=== PATIENT | male | born 1950 | race Caucasian/White ===

== ENCOUNTER 2020-09-26 12:46 | Outpatient (REF) | payer MEDICARE, OTHER, SELFPAY ==
[2020-09-26 14:06] LABS: COMMENT (LAB VIEW ONLY) 55.01 mg/dL; Microalb ug/mg Crea 14.5 ug/mg Cr
== END 2020-09-26 13:06 ==
LOC: NCHCN 12:46
PROVIDERS: PCP Family Medicine; Visit Provider Family Medicine
DX: E11.9 Type 2 diabetes mellitus without complications (principal); I10 Essential (primary) hypertension; E78.00 Pure hypercholesterolemia, unspecified
CPT/HCPCS: 82043; 82570

== ENCOUNTER 2020-12-05 16:29 | Outpatient (REF) | payer MEDICARE, OTHER, SELFPAY ==
[2020-12-07 13:58] LABS: COVID-19 RT-PCR UVMMC Result Positive (Negative)
== END 2020-12-05 16:30 | disposition home or self-care (01) ==
LOC: NCHCN 16:29
PROVIDERS: PCP Family Medicine; Visit Provider Family Medicine
DX: Z20.822 Contact with and (suspected) exposure to COVID-19 (principal)
CPT/HCPCS: U0003

== ENCOUNTER 2020-12-08 02:30 | Outpatient (CLI) | payer MEDICARE, OTHER, SELFPAY ==
[2020-12-08 12:50] VITALS: BP 175/85; PULSE 74; RESP 18; TEMP 37.2; O2SAT 94
[2020-12-08 12:55] VITALS: BP 175/85; PULSE 74; RESP 18; TEMP 37.2; O2SAT 94
[2020-12-08] MEDS: Normal Saline Flush 10 ML SYR IVP (13:36)
[2020-12-08] MEDS: Normal Saline 500 ML 30 ML IV (13:37)
[2020-12-08 13:43] VITALS: BP 156/70; PULSE 72; RESP 18; TEMP 37.1; O2SAT 95
[2020-12-08 14:13] VITALS: BP 145/93; PULSE 71; RESP 18; TEMP 37.3; O2SAT 94
[2020-12-08 14:47] VITALS: BP 156/84; PULSE 74; RESP 20; TEMP 37.6; O2SAT 94
[2020-12-08 15:10] VITALS: BP 157/80; PULSE 79; RESP 18; TEMP 37.1; O2SAT 93
== END 2020-12-08 02:31 | disposition home or self-care (01) ==
LOC: INF 02:31
PROVIDERS: PCP Family Medicine; Visit Provider Family Medicine
DX: U07.1 COVID-19 (principal)
CPT/HCPCS: 96365

== ENCOUNTER 2021-03-27 12:24 | Outpatient (REF) | payer MEDICARE, OTHER, SELFPAY ==
[2021-03-27 15:07] LABS: ALT 39 U/L (16-63); AST 18 U/L (15-37); Albumin 4.2 g/dL (3.4-5.0); Alkaline Phosphatase 58 U/L (46-116); Anion Gap 9.7 mmol/L (3-11); BUN 21 mg/dL (7-18); Bilirubin, Total 0.8 mg/dL (0.2-1.0); CO2 28.3 mmol/L (21.0-32.0); CREATININE 1.1 mg/dL (0.70-1.30); Calcium 9.4 mg/dL (8.5-10.1); Chloride 107 mmol/L (98-107); Glucose 178 mg/dL (74-106); Sodium 145 mmol/L (136-145); Total Protein 6.9 g/dL (6.4-8.2)
[2021-03-27 15:14] LABS: HCT 47.8 % (40.0-50.0); HGB 15.9 g/dL (13.5-17.5); MCHC 33.3 % (32.0-36.0); MCV 96.2 fL (80-95); MPV 12.4 fL (8.0-11.0); Platelet Count 176 10^3/uL (130-400); RBC 4.97 10^6/uL (4.36-5.78); RDW 11.9 % (11.8-14.1); RDW-SD 42.5 fL; WBC 5.48 10^3/uL (4.4-10.8)
== END 2021-03-27 12:25 | disposition home or self-care (01) ==
LOC: NCHCN 12:24
PROVIDERS: PCP Family Medicine; Visit Provider Family Medicine
DX: I10 Essential (primary) hypertension (principal); E11.9 Type 2 diabetes mellitus without complications
CPT/HCPCS: 80053; 85027

== ENCOUNTER 2021-03-27 23:17 | Emergency (ER) | payer MEDICARE, OTHER, SELFPAY ==
[2021-03-27 23:20] VITALS: BP 142/85; PULSE 97; RESP 16; TEMP 36.7; O2SAT 95
--- NOTE | 2021-03-27 23:23 | W.ED.GENAD ---
Discharge Plan Disposition Patient Disposition: HOME Condition: Good Discharge Details Clinical Impression: Acute bursitis of left shoulder Primary Care Provider: Navin Souza ED Provider: Cecil Doyle [place] Meds and New Rx's Prescriptions: New prednisone 10 mg tablets,dose pack See Rx Instructions .ROUTE .COMPLEX Qty: 21 RF: 0 oxycodone 5 mg tablet 5 mg PO Q8H PRNQty: 10 RF: 0 Continued losartan 50 mg Tablet 50 mg PO DAILY RF: 0 rabeprazole 20 mg Tablet,Delayed Release (Dr/Ec) 20 mg PO DAILY RF: 0 atorvastatin 20 mg Tablet 20 mg PO QHS RF: 0 metoprolol succinate 50 mg Tablet Extended Release 24 Hr 50 mg PO DAILY RF: 0 glimepiride 4 mg Tablet 4 mg PO BID RF: 0 aspirin 81 mg Tablet,Chewable 81 mg PO DAILY RF: 0 diclofenac sodium 75 mg Tablet,Delayed Release (Dr/Ec) 75 mg PO BID RF: 0 hydrochlorothiazide 12.5 mg Tablet 12.5 mg PO DAILY RF: 0 canagliflozin 100 mg Tablet 100 mg PO DAILY RF: 0 exenatide microspheres 2 mg/0.65 mL Pen Injector 2 mg SUBCUT QWEEK RF: 0 Discharge Instructions Additional Instructions: After discussion with orthopedics this is likely acute bursitis related to the injection. Recommendation is steroids for period of time and follow-up with orthopedics if no significant improvement. Wear the sling for comfort but has pain that improves try to do range of motion exercises. You may use Tylenol for pain with a prescription for oxycodone has been sent for the first few days due to the severity of your pain. Return to ED for fever, chills, worsening pain or swelling, numbness, weakness. Referrals: Dayne Chester MD [ [facility] STAFF PHYSICIAN] - Medical Decision Making Patient with immobile left shoulder after IM injection for immunization. This was the side that got the pneumococcus vaccine. The injection site is high and not in the posterior deltoid area expected. Discussed with ortho who reports this is in their literature and occurs especially with influenza vaccines. Because the site is high, patients develop acute bursitis. Recommendation is oral steroids, rest, pain control. Patient dosed with prednisone here and home on dose pack. Also given oxycodone due to pain given that [place] had not helped earlier. Informed consent signed. Patient to follow up with ortho next week if not improving. Return to ED for redness, worse pain, fever. HPI General Mode of arrival: ambulatory. Date/Time Provider Initiated Documentation: 03/27/21 23:23. Limitations to Documentation: no limitations. Information obtained by: patient and RN notes reviewed. HPI Narrative: Patient presents to ED with left shoulder pain. Patient saw PCP today and was given immunizations for a trip to [place] later this year. He was given hepatitis A and pneumococcus. His right arm is not bothering him. His left arm has become progressively worse to the point where he is unable to range his shoulder at all. He took 2 [place] around 7 PM. Did not help at all with the pain. He presents with sling on. He denies feeling unwell otherwise. Reports no fever, chills, malaise, fatigue. He has no numbness or weakness distally in the left arm. Related Data Home Medications Medication Instructions Recorded Confirmed aspirin 81 mg PO DAILY 03/28/21 03/28/21 atorvastatin 20 mg PO QHS 03/28/21 03/28/21 canagliflozin 100 mg PO DAILY 03/28/21 03/28/21 diclofenac sodium 75 mg PO BID 03/28/21 03/28/21 exenatide microspheres 2 mg SUBCUT QWEEK 03/28/21 03/28/21 glimepiride 4 mg PO BID 03/28/21 03/28/21 hydrochlorothiazide 12.5 mg PO DAILY 03/28/21 03/28/21 losartan 50 mg PO DAILY 03/28/21 03/28/21 metoprolol succinate 50 mg PO DAILY 03/28/21 03/28/21 oxycodone 5 mg PO Q8H PRN #10 tab 03/28/21 prednisone See Rx Instructions .ROUTE 03/28/21 .COMPLEX #21 dose pk rabeprazole 20 mg PO DAILY 03/28/21 03/28/21 Previous Rx's Medication Instructions Recorded oxycodone 5 mg PO Q8H PRN #10 tab 03/28/21 prednisone See Rx Instructions .ROUTE 03/28/21 .COMPLEX #21 dose pk Allergies Allergy/AdvReac Type Severity Reaction Status Date / Time adhesive tape Allergy Verified 03/27/21 23:34 cortisone Allergy Verified 03/27/21 23:34 Review of Systems Narrative: As documented in HPI otherwise negative as below. Const: no fever, chills, weakness Resp: no cough, SOB, pleuritic pain CV: no CP, diaphoresis, edema, syncope GI: no abdominal pain, nausea, vomiting, diarrhea Neuro: no headache, numbness, focal weakness, confusion [facility] Medical History Diabetes mellitus GERD (gastroesophageal reflux disease) Hypercholesterolemia Hypertension Surgical History S/P TKR (total knee replacement) bilateral Social History Smoking/Tobacco Use Status: Former Tobacco Use Smoking risk assessment performed?: Yes Alcohol Intake: current Alcohol Intake frequency: 0-2 drinks per day Alcohol type: beer Drug use: Never Substance use type: does not use Do you feel safe at home: Yes Do you feel safe in your relationship?: Yes Exam Narrative Exam Narrative: Const: WDWN elderly male in NAD. HEENT: NC/AT. Normal facial exam. Eyes: Normal conjunctiva and sclera. Neck: Supple. Trachea midline. Lungs: Normal respiratory effort. Cor: RRR. Good radial pulses. Neuro: A+O x 3. Normal speech, mentation, gait. Cranial nerves II - XII grossly intact. No gross motor or sensory deficit. Ext: No C/C/E. Left shoulder immobile due to pain. No warmth or redness. Injection site high up just posterior to the distal end of the acromion. RUE is normal and injection site posterior deltoid area Skin: Warm and dry without rash/erythema.
[2021-03-28] MEDS: predniSONE 20 MG TAB 60 MG PO (00:06)
== END 2021-03-28 00:30 | disposition home or self-care (01) ==
LOC: ER 03-28 00:24
PROVIDERS: Emergency Provider Emergency Medicine; PCP Family Medicine
DX: M75.52 Bursitis of left shoulder (principal); T50.B95A Adverse effect of other viral vaccines, initial encounter
CPT/HCPCS: 99283; J7512

== ENCOUNTER → 2021-04-05 10:31 | Outpatient (BNVA) | payer MEDICARE, OTHER, SELFPAY | PROVIDERS: PCP Family Medicine; Referring Provider Family Medicine; Visit Provider Student in an Organized Health Care Education/Training Program | DX: M75.52 Bursitis of left shoulder (principal) | CPT/HCPCS: 99203; 99214 ==

== ENCOUNTER 2021-07-19 14:58 | Outpatient (REF) | payer MEDICARE, OTHER, SELFPAY ==
[2021-07-19 16:04] LABS: Anion Gap 7.2 mmol/L (3-11); BUN 21 mg/dL (7-18); CO2 30.8 mmol/L (21.0-32.0); CREATININE 0.9 mg/dL (0.70-1.30); Calcium 8.9 mg/dL (8.5-10.1); Chloride 102 mmol/L (98-107); Glucose 219 mg/dL (74-106); Potassium 4.7 mmol/L (3.5-5.1); Sodium 140 mmol/L (136-145)
[2021-07-20 09:44] LABS: Hepatitis C Ab w Rflx HCV PCR Negative (Negative)
[2021-07-20 10:18] LABS: HIV-1/2 Ag & Ab Screen Negative (Negative)
== END 2021-07-19 14:59 | disposition home or self-care (01) ==
LOC: NCHCN 14:58
PROVIDERS: PCP Family Medicine; Visit Provider Family Medicine
DX: E11.9 Type 2 diabetes mellitus without complications (principal); I10 Essential (primary) hypertension; Z00.00 Encounter for general adult medical examination without abnormal findings; Z11.4 Encounter for screening for human immunodeficiency virus [HIV]; Z11.59 Encounter for screening for other viral diseases
CPT/HCPCS: 80048; 86803; 87389

== ENCOUNTER 2021-07-25 01:11 | Outpatient (CLI) | payer MEDICARE, OTHER, SELFPAY ==
--- NOTE | 2021-07-25 10:58 | DI.RAD_ITS ---
Exam(s) XR LUMBAR SPINE COMPLETE EXAM: XR LUMBAR SPINE COMPLETE CLINICAL HISTORY: LOW BACK PAIN, M54.5. TECHNIQUE: 2D digital imaging was performed of the lumbar spine. Five images were obtained. AP, la teral, right oblique, left oblique and L5-S1 spot views were obtained. COMPARISON: No exams were available for comparison FINDINGS: BONES: No fracture or destructive lesion. Vertebral bodies are unremarkable. Degenerative changes of the facets are seen at L4-5 and L5-S1. Endplate osteophytes are seen at multiple levels of the lumbar spine. DISKS: There is disc space narrowing at L2-L3, L4-L5 and L5-S1. There is a vacuum disc at L5-S1. ALIGNMENT: 2-3 mm retrolisthesis of L2 on L3 and 2-3 mm of anterolisthesis of L4 on L5 is noted. SOFT TISSUE: Atherosclerosis. 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 DATA REPOSITORY: RADIATION DOSE DELIVERED:
== END 2021-07-25 01:31 ==
PROVIDERS: PCP Family Medicine; Visit Provider Family Medicine
DX: M54.50 Low back pain, unspecified (principal); M47.817 Spondylosis without myelopathy or radiculopathy, lumbosacral region; M51.37 Other intervertebral disc degeneration, lumbosacral region
CPT/HCPCS: 72110

== ENCOUNTER 2021-09-06 07:14 | Emergency (ER) | payer MEDICARE, OTHER, SELFPAY ==
[2021-09-06 07:24] VITALS: BP 118/84; PULSE 76; O2SAT 96
--- NOTE | 2021-09-06 08:00 | DI.RAD_ITS ---
Exam(s) XR HIP PELVIS ADULT BL EXAM: XR HIP PELVIS ADULT BL CLINICAL HISTORY: pain. TECHNIQUE: 2D digital imaging was performed of the pelvis and bilateral hips. Three images were obt ained. AP pelvis and lateral views of both hips were obtained. COMPARISON: No exams were available for comparison FINDINGS: BONES: No acute fracture is present. No bony destructive lesion is seen. Moderate degenerative change s are seen in the lower lumbar spine. JOINTS: No dislocation present. The hips are well maintained. There may be mild joint space narrowin g. SOFT TISSUE: Surgical clips are seen inferior to the pelvis likely reflecting prior vasectomy. IMPRESSION: 1. No acute fracture or dislocation. 2. Mild joint space narrowing of the hips bilaterally. DATA REPOSITORY: RADIATION DOSE DELIVERED:
--- NOTE | 2021-09-06 08:52 | ED.GENADUL_ITS ---
Discharge Plan Disposition Patient Disposition: HOME Condition: Stable Discharge Details Clinical Impression: Acute hip pain, bilateral Primary Care Provider: Navin Souza ED Provider: Venus Huff Home Meds and New Rx's Prescriptions: New methylprednisolone [Medrol (Kashif)] 4 mg tablets,dose pack See Rx Instructions .ROUTE .COMPLEX Qty: 21 RF: 0 Continued losartan 50 mg Tablet 50 mg PO DAILY RF: 0 rabeprazole 20 mg Tablet,Delayed Release (Dr/Ec) 20 mg PO DAILY RF: 0 atorvastatin 20 mg Tablet 20 mg PO QHS RF: 0 metoprolol succinate 50 mg Tablet Extended Release 24 Hr 50 mg PO DAILY RF: 0 glimepiride 4 mg Tablet 4 mg PO BID RF: 0 aspirin 81 mg Tablet,Chewable 81 mg PO DAILY RF: 0 diclofenac sodium 75 mg Tablet,Delayed Release (Dr/Ec) 75 mg PO BID RF: 0 hydrochlorothiazide 12.5 mg Tablet 12.5 mg PO DAILY RF: 0 canagliflozin 100 mg Tablet 100 mg PO DAILY RF: 0 exenatide microspheres 2 mg/0.65 mL Pen Injector 2 mg SUBCUT QWEEK RF: 0 Discharge Instructions Additional Instructions: Please follow-up with your primary care physician at your scheduled appointment Follow-up with orthopedics, I will list the follow-up number below Take the Medrol until completed, it looks as though you have been on the medication before at this time I think it safe to initiate it, obviously if you develop a rash please discontinue and return as needed I have also given you a small bottle of oxycodone, take this medication sparingly as it is addictive Referrals: ORTHOPAEDICS,[facility] [OTHER] - Navin Souza MD [Primary Care Provider] - Medical Decision Making Patient appears well, there is no evidence of septic arthritis or bursitis, his x-rays do not show acute abnormality he does have some degenerative change to bilateral hips Have referred patient to physical therapy, orthopedics, and primary care physician Have placed him on Medrol dose pack Will take Tylenol as needed for pain Given a very small amount of oxycodone with risk of addiction discussed Discharged home in stable condition with stable vitals Given low threshold to return should he have new or worsening complaints Does report appointment with his primary care physician on September 25 Office work note, patient has complaints Made aware that he is unable to operate any machinery. Hours after taking ox ycodone, this medication is addictive and can cause constipation, patient Patient does have prior history of allergy to cortisone, and his last visit he was prescribed prednisone and did well with this medication patient Medical Records Medical records reviewed: Yes I reviewed the patient's medical records. Lab Data Lab results reviewed: Yes I reviewed the patient's lab results. HPI General Mode of arrival: ambulatory . Date/Time Provider Initiated Documentation: 09/06/21 07:33 . Limitations to Documentation: no limitations . Information obtained by: patient . HPI Narrative: This 71-year-old gentleman with history of ADD, hematuria, melanoma presents with report of bilateral hip pain for the past several months, worsening the past several days. He said taking Tylenol as needed for pain. He states this is not helping. Last night he woke up throughout the night secondary to discomfort. He denies any numbness or tingling. He denies any fever or chills. He denies any new low back pain. He denies any falls or known injuries. Related Data Home Medications Medication Instructions Recorded Confirmed aspirin 81 mg PO DAILY 03/28/21 09/06/21 atorvastatin 20 mg PO QHS 03/28/21 09/06/21 canagliflozin 100 mg PO DAILY 03/28/21 09/06/21 diclofenac sodium 75 mg PO BID 03/28/21 09/06/21 exenatide microspheres 2 mg SUBCUT QWEEK 03/28/21 09/06/21 glimepiride 4 mg PO BID 03/28/21 09/06/21 hydrochlorothiazide 12.5 mg PO DAILY 03/28/21 09/06/21 losartan 50 mg PO DAILY 03/28/21 09/06/21 metoprolol succinate 50 mg PO DAILY 03/28/21 09/06/21 rabeprazole 20 mg PO DAILY 03/28/21 09/06/21 methylprednisolone [Medrol (Kashif)] See Rx Instructions .ROUTE 09/06/21 .COMPLEX #21 dose pk Previous Rx's Medication Instructions Recorded methylprednisolone [Medrol (Kashif)] See Rx Instructions .ROUTE 09/06/21 .COMPLEX #21 dose pk Allergies Allergy/AdvReac Type Severity Reaction Status Date / Time adhesive tape Allergy Verified 09/06/21 07:31 cortisone Allergy Verified 09/06/21 07:31 General Stated Complaint: Orthopedic ANDREA: 4 Review of Systems All systems reviewed & are unremarkable except as noted in HPI and below PFSH All Active Problems (Updated 09/06/21 @ 09:04 by PIOTR Harrell) Acute hip pain, bilateral (Acute) ADD (attention deficit disorder) (Acute) Hematuria (Acute) Insomnia (Acute) Neoplasm of unspecified behavior of bone, soft tissue, and skin (Acute) Actinic keratosis (Acute) Acute bursitis of left shoulder (Acute) Medical History (Updated 09/06/21 @ 09:04 by PIOTR Harrell) Diabetes mellitus GERD (gastroesophageal reflux disease) Hypercholesterolemia Hypertension Surgical History S/P TKR (total knee replacement) bilateral Social History Smoking/Tobacco Use Status: Former Tobacco Use Smoking risk assessment performed?: Yes Alcohol Intake: current Alcohol Intake frequency: a few times a week Alcohol type: beer Drug use: Never Substance use type: does not use Current gender identity: male Do you feel safe at home: Yes Do you feel safe in your relationship?: Yes Exam Const General: cooperative, comfortable and no acute distress Eyes Sclera: sclerae normal Resp Effort & Inspection: normal respiratory effort Cardio Other: Rate and rhythm regular, neurovascularly intact GI Other: No abdominal bruit or pulsatile mass, no flank tenderness, no abdominal tenderness Skin General skin exam: no rashes or lesions noted Neuro General: patient alert and patient oriented x3 Motor: strength 5/5 throughout Sensory Exam: no sensory deficits noted Other: Ambulatory with steady although antalgic gait Extrem Other: Tenderness to hips bilaterally, decreased abduction and internal rotation on exam, negative straight leg raise bilaterally, neurovascularly intact Course Vital Signs Vital signs: Vital Signs Pulse 76 09/06/21 07:24 Blood Pressure 118/84 09/06/21 07:24 Pulse Oximetry 96 09/06/21 07:24 Pulse 76 09/06/21 07:24 Respiratory Effort Non-Labored 09/06/21 07:26 Blood Pressure 118/84 09/06/21 07:24 Blood Pressure Position Sitting 09/06/21 07:24 Pulse Oximetry 96 09/06/21 07:24 Oxygen Delivery Method Room Air 09/06/21 07:24 Oxygen Flow Rate 0 09/06/21 07:24 Pain Level 5 09/06/21 07:24 PAWSS Have you Been Recently Intoxicated or Drunk Within the Last 30 days?: No Have you Ever Experienced Previous Episodes of Alcohol Withdrawal?: No Have you ever Experienced Withdrawal Seizures?: No Have you ever Experienced Delirium Tremens(DT)s?: No Have you ever undergone Alcohol Rehabilitation Treatment (i.e, inpt ot outpatient treatment programs)?: No Have you ever Experienced Blackouts?: No Have you ever Combined Alcohol with other Downers within the last 90 days?: No Have you ever Combined Alcohol with any other Substance of Abuse during the last 90 days?: No Positive Blood Alcohol level on Presentation? [PCS.BAL]: No Evidence of Increased Autonomic Activity (i.e. HR>120, tremor, sweating, agitation, nausea)?: No Result: 0
[2021-09-06 09:41] VITALS: BP 135/76; PULSE 69; RESP 18; TEMP 36.9; O2SAT 98
== END 2021-09-06 09:37 | disposition home or self-care (01) ==
PROVIDERS: Emergency Provider Physician Assistant; PCP Family Medicine
DX: M25.551 Pain in right hip (principal); M25.552 Pain in left hip
CPT/HCPCS: 73521; 99283

== ENCOUNTER 2021-11-05 10:51 | Emergency (ER) | payer MEDICARE, OTHER, SELFPAY ==
[2021-11-05 10:57] VITALS: BP 158/80; PULSE 82; RESP 16; TEMP 36.2; O2SAT 98
[2021-11-05 11:23] VITALS: RESP 16
--- NOTE | 2021-11-05 12:20 | ED.GENADUL_ITS ---
Discharge Plan Disposition Patient Disposition: HOME Condition: Improving Discharge Details Clinical Impression: Panic attack Primary Care Provider: Navin Souza ED Provider: Luis Abraham Home Meds and New Rx's Prescriptions: Continued alprazolam 0.5 mg tablet 0.5 mg PO PRN0RF Label Comments: TAKE 1 TABLET BY MOUTH EVERY NIGHT AT BEDTIME NEEDED oxycodone 5 mg tablet 10 mg PO DAILY 0RF Label Comments: TAKE 1 TABLET BY MOUTH TWICE DAILY NEEDED FOR PAIN gabapentin 800 mg Tablet 900 mg PO TID 0RF losartan 50 mg Tablet 50 mg PO DAILY 0RF rabeprazole 20 mg Tablet,Delayed Release (Dr/Ec) 20 mg PO DAILY 0RF atorvastatin 20 mg Tablet 20 mg PO QHS 0RF metoprolol succinate 50 mg Tablet Extended Release 24 Hr 50 mg PO DAILY 0RF glimepiride 4 mg Tablet 4 mg PO BID 0RF aspirin 81 mg Tablet,Chewable 81 mg PO DAILY 0RF diclofenac sodium 75 mg Tablet,Delayed Release (Dr/Ec) 75 mg PO BID 0RF hydrochlorothiazide 12.5 mg Tablet 12.5 mg PO DAILY 0RF canagliflozin 100 mg Tablet 100 mg PO DAILY 0RF Discharge Instructions Instructions: Panic Attack (ED) Additional Instructions: You have been provided with a medical screening evaluation. A medical work-up was offered but declined. We also offered to contact our mental health team to evaluate you here in the ER but you preferred not to be in the ER that long. Instead we provided you with the mental health number so you could contact them personally from your cell phone and they could talk to you on your cell phone from a location of your choosing. Please follow their instructions. Please watch for new or worsening symptoms and return to the ER for any concerns. Lastly, please contact your primary care provider tomorrow morning to discuss your ER visit need for outpatient reevaluation Discharge Data Discharge Date/Time-TO BE ENTERED AT DEPARTURE: 11/05/21 13:46 Medical Decision Making This is a 71-year-old gentleman presenting for anxiety and claustrophobia. He recently had a back procedure which went well and his overall chronic back pain is greatly improved. He had been on steroids that tapered out a few days ago. Initially question if this could be secondary to his recent steroid use, bhavna roid-induced psychosis, etc. but the more we talked about his symptoms are less I feel this is likely. He initially was not agreeable to coming in the building and allow an evaluation but after speaking to him in the vestibule for approximately 10 minutes he was persuaded to go into room 10. He does not feel as though he has a medical problem and would like to talk to someone about his anxiety and claustrophobia. He was offered a medical screening examination and then a medical work-up including IV access, laboratory values, EKG, etc. Patient declines this. Patient is hesitant for psychiatric evaluation here in the ER as this may take too long. We discussed her options. I explained to him that I could contact our mental health team and initiate a mental health evaluation but that they would evaluate him via Zoom in the ER. He did not think she wanted to wait in the ER that long. Instead we opted to give him the crisis number so that he could call them himself from his cell phone and then he could have his conversation with the crisis team at his convenience in a comfortable location from his cell phone. He denies any suicidal or homicidal ideations and feels as though he is safe to be discharged. His son dropped him off and will be back in approximately 1 hour. He is agreeable to be observed in room 10 where he has access to windows and can look outside. During this time. He was reassessed multiple times. He contacted the crisis number and is awaiting a call back. He reports that his symptoms have greatly improved and he no longer feels like the the bowers are closing in. He no longer looks anxious. Strict discharge and return precautions were provided. Patient has no additional questions or concerns and is comfortable with this plan. He remained hemodynamically stable under my care. This documentation was generated using [employer] system, please disregard any oddities of phrase or misspellings. Medical Records Medical records reviewed: Yes I reviewed the patient's medical records. HPI General Mode of arrival: ambulatory . Date/Time Provider Initiated Documentation: 11/05/21 11:12 . Limitations to Documentation: no limitations . Information obtained by: patient . HPI Narrative: This is a 71-year-old gentleman, past medical history of ADD, insomnia, diabete s, hypertension, presenting to the ER reporting anxiety, and claustrophobia. Patient states that he had a similar episode nearly 20 years ago. Earlier this week he states he had a bad dream and woke up like everything was closing in but the sensation went away and he has been doing well. He states about 2 weeks ago he had back surgery at [facility] and although the procedure went well and his pain is greatly improving, he has primarily been at home, has not left, and was feeling cooped up. This morning he awoke and felt as though the bowers were closing in on him but he simply could not stay at home. He initially did not want to enter the hospital building and it took me approximately 10 minutes talking to him in the vestibule to persuade him to be evaluated in room 10 where we could open the blinds and he had access to visualize outside. He denies any recent illness or trauma. Denies headache, visual changes, fever, neck pain, chest pain, shortness of breath, difficulty breathing, abdominal pain, nausea, vomiting, numbness, tingling, focal weakness. Patient states that after the surgery he was on a steroid taper dose but this ended 3 days ago. He denies any suicidal or homicidal ideations and reports feeling safe. He denies any drug use. Related Data Home Medications Medication Instructions Recorded Confirmed aspirin 81 mg chewable tablet 81 mg PO DAILY 03/28/21 11/05/21 atorvastatin 20 mg tablet 20 mg PO QHS 03/28/21 11/05/21 canagliflozin 100 mg tablet 100 mg PO DAILY 03/28/21 11/05/21 diclofenac sodium 75 mg 75 mg PO BID 03/28/21 11/05/21 tablet,delayed release glimepiride 4 mg tablet 4 mg PO BID 03/28/21 11/05/21 hydrochlorothiazide 12.5 mg tablet 12.5 mg PO DAILY 03/28/21 11/05/21 losartan 50 mg tablet 50 mg PO DAILY 03/28/21 11/05/21 metoprolol succinate 50 mg 50 mg PO DAILY 03/28/21 11/05/21 tablet,extended release 24 hr rabeprazole 20 mg tablet,delayed 20 mg PO DAILY 03/28/21 11/05/21 release alprazolam 0.5 mg tablet 0.5 mg PO PRN 11/05/21 gabapentin 800 mg tablet 900 mg PO TID 11/05/21 11/05/21 oxycodone 5 mg tablet 10 mg PO DAILY 11/05/21 11/05/21 Allergies Allergy/AdvReac Type Severity Reaction Status Date / Time adhesive tape Allergy Verified 11/05/21 11:02 cortisone Allergy Verified 11/05/21 11:02 General Stated Complaint: Anxiety ANDREA: 3 Review of Systems Constitutional Constitutional: Denies fatigue, Denies fever(s), Denies headache(s) and Denies weakness Eyes Eyes: Denies change in vision ENT Ears, Nose, Mouth, and Throat: Denies headache(s) and Denies neck pain Cardiovascular Cardiovascular: Denies chest pain and Denies dyspnea Respiratory Respiratory: Denies cough and Denies dyspnea Gastrointestinal Gastrointestinal: Denies abdominal pain, Denies nausea and Denies vomiting Musculoskeletal Musculoskeletal: Reports back pain (Chronic, improving) and Denies neck pain Integumentary/Breasts Skin/Breast: Denies rash Neurologic Neurologic: Denies headache(s) and Denies weakness Psychiatric Psychiatric: Reports anxiety Endocrine Endocrine: Denies fatigue PFSH All Active Problems Panic attack (Acute) ADD (attention deficit disorder) (Acute) Hematuria (Acute) Insomnia (Acute) Neoplasm of unspecified behavior of bone, soft tissue, and skin (Acute) Actinic keratosis (Acute) Acute bursitis of left shoulder (Acute) Medical History Diabetes mellitus GERD (gastroesophageal reflux disease) Hypercholesterolemia Hypertension Surgical History S/P TKR (total knee replacement) bilateral Social History Smoking/Tobacco Use Status: Former Tobacco Use Smoking risk assessment performed?: Yes Alcohol Intake: current Alcohol Intake frequency: 0-2 drinks per day Alcohol type: beer Drug use: Never Substance use type: does not use Current gender identity: male Do you feel safe at home: Yes Do you feel safe in your relationship?: Yes Exam Const General: cooperative, healthy appearing, comfortable, no acute distress and anxious Orientation: alert, awake and oriented x3 HENMT Head: normal to inspection, normocephalic and atraumatic Face and sinus: normal facial exam Mouth: moist mucous membranes Eyes General: appearance normal, both eyes and all related structures Conjunctivae: conjunctivae normal Neck Neck: normal visual inspection, full ROM, trachea midline and supple Resp Effort & Inspection: normal respiratory effort and able to speak in complete sentences Auscultation: clear to auscultation bilaterally Cardio Rate: regular rate Rhythm: regular rhythm Back/Spine/Pelvis Back: No back tenderness (No signs of infection) Skin General skin exam: no rashes or lesions noted Neuro General: patient alert, patient awake, patient oriented x3, moves all extremities and no focal motor deficits Cognition: normal cognition Speech: speech normal Gait: normal gait Motor: muscle tone normal throughout Sensory Exam: no sensory deficits noted Extrem General: normal to inspection and full ROM Psych Appearance: grossly normal Mental Status: mental status grossly normal Speech and Movement: speech and movement normal Mood: anxious mood Affect: anxious affect Attitude: cooperative Thought Process: normal Thought Content: normal Insight: insight good Judgment: judgment good Course Vital Signs Vital signs: Vital Signs Temperature 36.2 C L 11/05/21 10:57 Pulse 82 11/05/21 10:57 Respiratory Rate 16 11/05/21 10:57 Blood Pressure 158/80 H 11/05/21 10:57 Pulse Oximetry 98 11/05/21 10:57 Temperature 36.2 C L 11/05/21 10:57 Temperature Source Skin 11/05/21 10:57 Pulse 82 11/05/21 10:57 Respiratory Rate 16 11/05/21 11:23 Respiratory Effort Non-Labored 11/05/21 11:23 Respiratory Depth Normal 11/05/21 11:23 Respiratory Pattern Normal 11/05/21 11:23 Blood Pressure 158/80 H 11/05/21 10:57 Blood Pressure Position Sitting 11/05/21 10:57 Pulse Oximetry 98 11/05/21 10:57 Oxygen Delivery Method Room Air 11/05/21 10:57 Oxygen Flow Rate 0 11/05/21 10:57 Pain Level 4 11/05/21 10:57 PAWSS Have you Been Recently Intoxicated or Drunk Within the Last 30 days?: Yes Have you Ever Experienced Previous Episodes of Alcohol Withdrawal?: No Have you ever Experienced Withdrawal Seizures?: No Have you ever Experienced Delirium Tremens(DT)s?: No Have you ever undergone Alcohol Rehabilitation Treatment (i.e, inpt ot outpatient treatment programs)?: No Have you ever Experienced Blackouts?: No Have you ever Combined Alcohol with other Downers within the last 90 days?: No Have you ever Combined Alcohol with any other Substance of Abuse during the last 90 days?: No Positive Blood Alcohol level on Presentation? [PCS.BAL]: No Evidence of Increased Autonomic Activity (i.e. HR>120, tremor, sweating, agitation, nausea)?: No Result: 1
[2021-11-05 12:24] VITALS: BP 126/78; PULSE 85; RESP 17; TEMP 35.8; O2SAT 98
[2021-11-05 12:43] VITALS: BP 126/78; PULSE 85; RESP 17; TEMP 35.8; O2SAT 98
== END 2021-11-05 13:46 | disposition home or self-care (01) ==
PROVIDERS: Emergency Provider Physician Assistant; PCP Family Medicine
DX: F41.0 Panic disorder [episodic paroxysmal anxiety] (principal)
CPT/HCPCS: 99283

== ENCOUNTER 2021-11-15 19:05 | Emergency (ER) | payer MEDICARE, OTHER, SELFPAY ==
[2021-11-15 19:22] VITALS: BP 148/89; PULSE 89; RESP 16; TEMP 36.3; O2SAT 96
--- NOTE | 2021-11-15 20:15 | RT.EKG_ITS ---
APPROVED REPORT Exam: Resting ECG Reason for Exam: anxiety Patient Location: E HR:81 bpm ECG Measurements Heart Rate 81 AXIS VA 162 P 46 QRSd 119 QRS 2 QT 412 T 98 QTc 480 Conclusion Sinus rhythm...normal P axis, V-rate 60- 99 Nonspecific intraventricular conduction delay...QRSd >115mS, not LBBB/RBBB Consider anteroseptal infarct...Q >30mS, dimin R, V1-V2 sinus rhyth,, left axis, t wave inversion aVL, st depression V4 V5
[2021-11-15] MEDS: LORazepam 1 MG TAB PO (20:47)
[2021-11-15 20:56] LABS: Bilirubin Negative (Negative); Blood Negative (Negative); Clarity Clear (Clear); Glucose >=1000 mg/dL (Negative); Ketones 40 mg/dL (Negative); Leukocyte Esterase Negative (Negative); Nitrite Negative (Negative); Specific Gravity >= 1.030 (1.005-1.025); Urobilinogen 0.2 EU/dL (Up TO 0.2); pH 5.5 (5-8)
[2021-11-15 21:06] LABS: Abs Immature Grans 0.02 10^3/uL (0.0-0.06); Absolute Basophil Count 0.03 10^3/uL (0.0-0.2); Absolute Eosinophil Count 0.12 10^3/uL (0.0-0.7); Absolute Monocyte Count 0.62 10^3/uL (0.1-0.8); Absolute Neutrophil Count 4.21 10^3/uL (1.2-6.7); Basophils % 0.4; Eosinophils % 1.8; HCT 46.5 % (40.0-50.0); Immature Grans % 0.3; Lymphocytes % 25.4; MCH 32.1 pg (27.0-33.0); MCHC 34.4 % (32.0-36.0); MCV 93.4 fL (80-95); MPV 11.7 fL (8.0-11.0); Monocytes % 9.3; Neutrophils % 62.8; Nucleated RBC 0 %; Platelet Count 185 10^3/uL (130-400); RBC 4.98 10^6/uL (4.36-5.78); RDW 12.3 % (11.8-14.1); RDW-SD 42.4 fL
[2021-11-15 21:20] LABS: ALT 17 U/L (16-63); AST 13 U/L (15-37); Albumin 4.1 g/dL (3.4-5.0); Alkaline Phosphatase 81 U/L (46-116); BUN 15 mg/dL (7-18); Bilirubin, Total 0.7 mg/dL (0.2-1.0); CO2 26.5 mmol/L (21.0-32.0); CREATININE 0.9 mg/dL (0.70-1.30); Calcium 9.5 mg/dL (8.5-10.1); Chloride 101 mmol/L (98-107); Glucose 220 mg/dL (74-106); Magnesium 2.2 mg/dL (1.8-2.4); Potassium 4.1 mmol/L (3.5-5.1); TSH (W/Ref FT4) 1.05 uIU/mL (0.36-3.74); Total Protein 7.2 g/dL (6.4-8.2); Troponin I 54 ng/L (<or=60)
[2021-11-15 21:24] LABS: Anion Gap 10.5 mmol/L (3-11); Sodium 138 mmol/L (136-145)
--- NOTE | 2021-11-16 15:58 | PDOC.MHCN ---
Date of service: 11/15/21 Time of Service: 21:30 Mental Health Crisis Note Presenting Issue How did you arrive at the ED and why did you come: Client arrived to the ED via self for anxiety due to his daily medication. Precipitating Factors Client denies SI/HI/NSSI. Disposition BEHAVIOR: Client is calm, cooperative, and engaged in conversation. EYE CONTACT: N/a MOOD: Client reported being anxious prior to the assessment. The nurse gave him ativan so he was finally able to relax, and appeared to be calm while being assessed. AFFECT: Congruent with mood. APPETITE: Not assessed at this time. SLEEP(trouble falling/staying asleep: Not assessed at this time. Plan Clients concerns are medicine related. This journalists and other writers was able to suggest a plan moving forward to try and fix the medication issue. Client will be making a follow up PCP appointment to discuss medication, as well as request a psychiatry referral for a second opinion since he reports having panic attacks.Clinician will be following up with client. Signature Clinician's Name/Title: Whit Llanos, ESC
--- NOTE | 2021-12-11 09:41 | ED.GENADUL_ITS ---
Discharge Plan Disposition Patient Disposition: HOME Condition: Stable Discharge Details Clinical Impression: Restless Primary Care Provider: Navin Souza ED Provider: Venus Huff Home Meds and New Rx's Prescriptions: New lorazepam [Ativan] 1 mg tablet 1 mg PO BID PRNQty: 6 0RF Continued alprazolam 0.5 mg tablet 0.5 mg PO PRN PRN0RF Label Comments: TAKE 1 TABLET BY MOUTH EVERY NIGHT AT BEDTIME NEEDED oxycodone 5 mg tablet 10 mg PO DAILY 0RF Label Comments: TAKE 1 TABLET BY MOUTH TWICE DAILY NEEDED FOR PAIN gabapentin 800 mg Tablet 900 mg PO TID 0RF losartan 50 mg Tablet 50 mg PO DAILY 0RF rabeprazole 20 mg Tablet,Delayed Release (Dr/Ec) 20 mg PO DAILY 0RF atorvastatin 20 mg Tablet 20 mg PO QHS 0RF metoprolol succinate 50 mg Tablet Extended Release 24 Hr 50 mg PO DAILY 0RF glimepiride 4 mg Tablet 4 mg PO BID 0RF aspirin 81 mg Tablet,Chewable 81 mg PO DAILY 0RF diclofenac sodium 75 mg Tablet,Delayed Release (Dr/Ec) 75 mg PO BID 0RF hydrochlorothiazide 12.5 mg Tablet 12.5 mg PO DAILY 0RF canagliflozin 100 mg Tablet 100 mg PO DAILY 0RF Discharge Instructions Additional Instructions: Please follow-up with your primary care physician Do not continue taking the oxycodone or Neurontin You may take Ativan sparingly, this medication is addictive and should be used with caution Do not drive for 8 hours after taking this medication Referrals: Navin Souza MD [Primary Care Provider] - Discharge Data Discharge Date/Time-TO BE ENTERED AT DEPARTURE: 11/15/21 22:40 Medical Decision Making Patient feels very much symptomatically improved after Ativan administration Mental health consultation was performed and labs are reviewed, labs consistent with diabetes diagnosis in the past Patient taking his medication He is now calm and cooperative He feels very comfortable following up outpatient He denies any suicidal homicidal ideation He is given the return should he have new or worsening complaints and discharged home in stable condition with stable vitals symptomatically improved with a small amount of Ativan at home should he need it He will refrain from taking oxycodone in the future Medical Records Medical records reviewed: Yes I reviewed the patient's medical records. Lab Data Lab results reviewed: Yes I reviewed the patient's lab results. HPI General Date/Time Provider Initiated Documentation: 11/15/21 19:57 . HPI Narrative: This 71-year-old gentleman presents with anxiety and jitteriness. Patient states initially he attributed it to oxycodone however he had persistent symptoms despite discontinuing this medication. He denies any auditory or visual hallucinations. He states that he feels extremely anxious and claustrophobic any summer felt like this before. He denies any fever or chills. He denies any chest pain or shortness of breath. He denies any dizziness or weakness. He denies any suicidal or homicidal ideation. He states that the m edication that he was distributed with last encounter improved symptoms. He has not yet followed up with mental health. He took his last dose of oxycodone approximately 3 days ago but feels like this exacerbated his symptoms. Related Data Home Medications Medication Instructions Recorded Confirmed aspirin 81 mg chewable tablet 81 mg PO DAILY 03/28/21 11/15/21 atorvastatin 20 mg tablet 20 mg PO QHS 03/28/21 11/15/21 canagliflozin 100 mg tablet 100 mg PO DAILY 03/28/21 11/15/21 diclofenac sodium 75 mg 75 mg PO BID 03/28/21 11/15/21 tablet,delayed release glimepiride 4 mg tablet 4 mg PO BID 03/28/21 11/15/21 hydrochlorothiazide 12.5 mg tablet 12.5 mg PO DAILY 03/28/21 11/15/21 losartan 50 mg tablet 50 mg PO DAILY 03/28/21 11/15/21 metoprolol succinate 50 mg 50 mg PO DAILY 03/28/21 11/15/21 tablet,extended release 24 hr rabeprazole 20 mg tablet,delayed 20 mg PO DAILY 03/28/21 11/15/21 release alprazolam 0.5 mg tablet 0.5 mg PO PRN PRN 11/05/21 gabapentin 800 mg tablet 900 mg PO TID 11/05/21 11/15/21 oxycodone 5 mg tablet 10 mg PO DAILY 11/05/21 11/15/21 lorazepam 1 mg tablet (Ativan) 1 mg PO BID PRN #6 tab 11/15/21 Previous Rx's Medication Instructions Recorded lorazepam 1 mg tablet (Ativan) 1 mg PO BID PRN #6 tab 11/15/21 Allergies Allergy/AdvReac Type Severity Reaction Status Date / Time adhesive tape Allergy Verified 11/15/21 19:26 cortisone Allergy Verified 11/15/21 19:26 General Stated Complaint: Anxiety ANDREA: 3 Review of Systems All systems reviewed & are unremarkable except as noted in HPI and below PFSH All Active Problems (Updated 12/06/21 @ 00:05 by LORRAINE BRANHAM) Restless (Acute) ADD (attention deficit disorder) (Acute) Hematuria (Acute) Insomnia (Acute) Neoplasm of unspecified behavior of bone, soft tissue, and skin (Acute) Actinic keratosis (Acute) Acute bursitis of left shoulder (Acute) Medical History Diabetes mellitus GERD (gastroesophageal reflux disease) Hypercholesterolemia Hypertension Surgical History S/P TKR (total knee replacement) bilateral Social History Smoking/Tobacco Use Status: Former Tobacco Use Smoking risk assessment performed?: Yes Alcohol Intake: current Alcohol Intake frequency: 0-2 drinks per day Alcohol type: beer Drug use: Never Substance use type: does not use Current gender identity: male Do you feel safe at home: Yes Do you feel safe in your relationship?: Yes Exam Const General: cooperative, comfortable and no acute distress Orientation: alert and oriented x3 HENMT Head: normal to inspection Eyes Pupils: PERRL Chest Chest: normal inspection of the chest Resp Effort & Inspection: normal respiratory effort Auscultation: clear to auscultation bilaterally Cardio Rate: regular rate Rhythm: regular rhythm Skin General skin exam: no rashes or lesions noted Neuro General: patient alert and patient oriented x3 Cranial Nerves: CN's II-XI intact bilaterally Cognition: normal cognition Speech: speech normal Gait: normal gait Motor: muscle tone normal throughout Extrem General: normal to inspection Psych Appearance: well kempt Speech and Movement: agitated Mood: paranoid Affect: anxious affect Attitude: cooperative Thought Process: normal Thought Content: normal Course Vital Signs Vital signs: Vital Signs Temperature 36.3 C L 11/15/21 19:22 Pulse 89 11/15/21 19:22 Respiratory Rate 16 11/15/21 19:22 Blood Pressure 148/89 H 11/15/21 19:22 Pulse Oximetry 96 11/15/21 19:22 Temperature 36.3 C L 11/15/21 19:22 Temperature Source Skin 11/15/21 19:22 Pulse 89 11/15/21 19:22 Respiratory Rate 16 11/15/21 19:22 Respiratory Effort Non-Labored 11/15/21 19:34 Respiratory Depth Normal 11/15/21 19:34 Respiratory Pattern Normal 11/15/21 19:34 Blood Pressure 148/89 H 11/15/21 19:22 Pulse Oximetry 96 11/15/21 19:22 Pain Level 7 11/15/21 19:22 Lab/Test Results Lab/Test Results: Laboratory Tests Range/Units 11/15/21 11/15/21 11/15/21 20:44 20:44 20:50 WBC (4.4-10.8) 10^3/uL 6.70 RBC (4.36-5.78) 10^6/uL 4.98 Hgb (13.5-17.5) g/dL 16.0 Hct (40.0-50.0) % 46.5 MCV (80-95) fL 93.4 MCH (27.0-33.0) pg 32.1 MCHC (32.0-36.0) % 34.4 RDW (11.8-14.1) % 12.3 Plt Count (130-400) 10^3/uL 185 MPV (8.0-11.0) fL 11.7 H Immature Gran % 0.3 Neutrophils % 62.8 Lymphocytes % 25.4 Monocytes % 9.3 Eosinophils % 1.8 Basophils % 0.4 Nucleated RBC % % 0 Absolute Neutrophils (1.2-6.7) 10^3/uL 4.21 Absolute Lymphocytes (1.2-3.4) 10^3/uL 1.70 Absolute Monocytes (0.1-0.8) 10^3/uL 0.62 Absolute Eosinophils (0.0-0.7) 10^3/uL 0.12 Absolute Basophils (0.0-0.2) 10^3/uL 0.03 Sodium (136-145) mmol/L 138 Potassium (3.5-5.1) mmol/L 4.1 Chloride (98-107) mmol/L 101 Carbon Dioxide (21.0-32.0) mmol/L 26.5 Anion Gap (3-11) mmol/L 10.5 BUN (7-18) mg/dL 15 Creatinine (0.70-1.30) mg/dL 0.9 Estimated GFR/1.73 m2 (mL/min/1.73m2) >= 60.00 Glucose (74-106) mg/dL 220 H Calcium (8.5-10.1) mg/dL 9.5 Magnesium (1.8-2.4) mg/dL 2.2 Total Bilirubin (0.2-1.0) mg/dL 0.7 AST (15-37) U/L 13 L ALT (16-63) U/L 17 Alkaline Phosphatase (46-116) U/L 81 Troponin I (<or=60) ng/L 54 Total Protein (6.4-8.2) g/dL 7.2 Albumin (3.4-5.0) g/dL 4.1 TSH (0.36-3.74) uIU/mL 1.05 Urine Color (Yellow) Yellow Urine Clarity (Clear) Clear Urine pH (5-8) 5.5 Ur Specific [place] (1.005-1.025) >= 1.030 H Urine Protein (Negative) mg/dL Negative Urine Ketones (Negative) mg/dL 40 H Urine Blood (Negative) Negative Urine Nitrite (Negative) Negative Urine Bilirubin (Negative) Negative Urine Urobilinogen (Up TO 0.2) EU/dL 0.2 Ur Leukocyte Esterase (Negative) Negative Urine Glucose (Negative) mg/dL >=1000 H PAWSS Have you Been Recently Intoxicated or Drunk Within the Last 30 days?: Unable to Obtain Have you Ever Experienced Previous Episodes of Alcohol Withdrawal?: Unable to Obtain Have you ever Experienced Withdrawal Seizures?: Unable to Obtain Have you ever Experienced Delirium Tremens(DT)s?: Unable to Obtain Have you ever undergone Alcohol Rehabilitation Treatment (i.e, inpt ot outpatient treatment programs)?: Unable to Obtain Have you ever Experienced Blackouts?: Unable to Obtain Have you ever Combined Alcohol with other Downers within the last 90 days?: Unable to Obtain Have you ever Combined Alcohol with any other Substance of Abuse during the last 90 days?: Unable to Obtain Positive Blood Alcohol level on Presentation? [PCS.BAL]: Unable to Obtain Evidence of Increased Autonomic Activity (i.e. HR>120, tremor, sweating, agitat ion, nausea)?: Unable to Obtain
== END 2021-11-15 22:40 | disposition home or self-care (01) ==
PROVIDERS: Emergency Provider Physician Assistant; PCP Family Medicine
DX: R45.1 Restlessness and agitation (principal); F41.9 Anxiety disorder, unspecified
CPT/HCPCS: 36415; 80053; 93005; 99283; 81003; 83735; 84443; 84484; 85025; 93010

== ENCOUNTER 2022-02-19 04:19 | Inpatient (IN) | payer MEDICARE, OTHER, SELFPAY ==
[2022-02-19] VITALS (154 sets, daily range): BP systolic 120–156; BP diastolic 74–106; PULSE 69–98; RESP 14–28; TEMP 36.5–36.9; O2SAT 92–96
--- NOTE | 2022-02-19 04:30 | RT.EKG_ITS ---
APPROVED REPORT Exam: Resting ECG Reason for Exam: anxiety Patient Location: E HR:91 bpm ECG Measurements Heart Rate 91 AXIS NV 220 P 108 QRSd 122 QRS -38 QT 387 T 120 QTc 476 Conclusion Sinus rhythm...normal P axis, V-rate 60- 99 Prolonged NV interval...NV >215, V-rate 91-120 LVH with secondary repolarization abnormality...multi-LVH criteria, abnrm ST-T Physician: Rate 91, sinus rhythm, interventricular conduction delay event marketing representative of a left bundle branch block . Negative for SCARBOSSA criteria. No STEMI. Interval change from prior EKG on 11/15/2021
[2022-02-19] MEDS: LORazepam 1 MG TAB PO (04:36)
[2022-02-19] MEDS: Aspirin 81 MG CHEW 324 MG CH (05:07)
--- NOTE | 2022-02-19 05:07 | ED.GENADUL_ITS ---
Discharge Plan Disposition Patient Disposition: [facility] INPATIENT Condition: Stable Discharge Details Chief Complaint: Anxiety Clinical Impression: Non-ST elevation [place] (NSTEMI) Primary Care Provider: Navin Souza ED Provider: Channing Alfaro Home Meds and New Rx's Prescriptions: No Action alprazolam 0.5 mg tablet 0.5 mg PO PRN PRN Label Comments: TAKE 1 TABLET BY MOUTH EVERY NIGHT AT BEDTIME NEEDED gabapentin 800 mg Tablet 900 mg PO TID cyclobenzaprine 10 mg tablet 10 tab PO TID Label Comments: TAKE ONE TABLET BY MOUTH EVERY 8 HOURS NEEDED celecoxib 100 mg capsule 1,000 cap PO DAILY Bydureon BCise 2 mg/0.85 mL auto-injector 1 ea SUBCUT QWEEK losartan 50 mg Tablet 50 mg PO DAILY rabeprazole 20 mg Tablet,Delayed Release (Dr/Ec) 20 mg PO DAILY atorvastatin 20 mg Tablet 20 mg PO QHS metoprolol succinate 50 mg Tablet Extended Release 24 Hr 50 mg PO DAILY glimepiride 4 mg Tablet 4 mg PO BID aspirin 81 mg Tablet,Chewable 81 mg PO DAILY hydrochlorothiazide 12.5 mg Tablet 12.5 mg PO DAILY canagliflozin 100 mg Tablet 100 mg PO DAILY Medical Decision Making This is a 71-year-old male with a past medical history of anxiety, hypertension, diabetes mellitus, high cholesterol, who presents today via EMS for a panic attack. Patient states that this morning he woke up and felt like the room was closing in around him. He states that he has been having these panic attacks over the last few months, and this 1 appears identical to those previous episodes. He states that he was started on Lexapro and this completely resolved his panic attacks, however for the last week he believes that he forgot to put his Lexapro in his pill container and he has been feeling gradual returns of this panic sensation. This began climax tonight. He denies any chest pain, chest tightness, tearing or ripping sensation in his chest, chest heaviness, arm neck or shoulder pain, or other complaints. He denies any history of cardiac disease. He denies any vomiting or diarrhea. He denies any other complaints at this time. No other modifying factors. Exam demonstrates a well-appearing male, slightly anxious but otherwise unremarkable and stable. No chest pain whatsoever. No concerning red flags of heaviness or tightness. Symptoms appear consistent with mild panic. We will give a small dose of Ativan. Out of an abundance of precaution we will get a screening EKG as well. Will monitor closely and reassess. 5:11 AM EKG shows evidence of a nonspecific interventricular conduction delay versus a left bundle branch block. Comparison of prior EKG on 11/15/2021 demonstrates master dence of a change compared to then. While there are certainly components of a conduction delay previously, this appears to be more pronounced. EKG findings are inconsistent with STEMI, additionally it is inconsistent with a positive SCARBOSSA's criteria. I do feel that this current change does not represent an ischemic episode based on history and exam, however with the EKG findings I do feel that further work-up is indicated. We we will get screening troponins, and continue to monitor closely. We will give full dose aspirin. Of note patient feels completely relieved at this time and much better and feels comfortable going home after the Ativan administration. 6:42 AM Bedside echo was performed, and limited echo demonstrates no pericardial effusion. The left ventricle appears dilated, ejection fraction reduced at around 35%, notable hypokinesis at the base/apex, and bowers. Symptoms almost appear concerning for Takotsubo's cardiomyopathy. We did contact [facility] and discussed the case with Dr. Coulter of cardiology. Upon review of the EKG and clinical history he recommends transfer for further evaluation, heparinization and Plavix loading. Bed will be available tomorrow morning for transfer center. We will maintain him here in the meantime, and treat with medical therapy. Patient remains completely chest pain-free. We will contact the hospitalist for admission. Dr. For [facility] admission is Dr. Arias 7:30 AM Discussed the case with hospitalist Dr. Gerardo, he agrees with assessment and plan. I have extensively reviewed the treatment plan with the patient. I have addressed all patient concerns at this time. I have also discussed the plan with the admitting physician and they agree with the current assessment and plan and have agreed to assume responsibility for the patient. All parties demonstrate verbal understanding and agreement with our assessment and plan at this time. The documentation in this chart was dictated using [employer] 2000 dictation software. Please excuse any dictation errors. EKG 4: 36 Rate 91, sinus rhythm, interventricular conduction delay admissions representative of a left bundle branch block. Negative for SCARBOSSA criteria. No STEMI. Interval change from prior EKG on 11/15/2021 HPI General Date/Time Provider Initiated Documentation: 02/19/22 04:23 . HPI Narrative: This is a 71-year-old male with a past medical history of anxiety, hypertension, diabetes mellitus, high cholesterol, who presents today via EMS for a panic attack. Patient states that this morning he woke up and felt like the room was closing in around him. He states that he has been having these panic attacks over the last few months, and this 1 appears identical to those previous episodes. He states that he was started on Lexapro and this completely resolved his panic attacks, however for the last week he believes that he forgot to put his Lexapro in his pill container and he has been feeling gradual returns of this panic sensation. This began climax tonight. He denies any chest pain, chest tightness, tearing or ripping sensation in his chest, chest heaviness, arm neck or shoulder pain, or other complaints. He denies any history of cardiac disease. He denies any vomiting or diarrhea. He denies any other complaints at this time. No other modifying factors. Related Data Home Medications Medication Instructions Recorded Confirmed aspirin 81 mg chewable tablet 81 mg PO DAILY 03/28/21 02/19/22 atorvastatin 20 mg tablet 20 mg PO QHS 03/28/21 02/19/22 canagliflozin 100 mg tablet 100 mg PO DAILY 03/28/21 02/19/22 glimepiride 4 mg tablet 4 mg PO BID 03/28/21 02/19/22 hydrochlorothiazide 12.5 mg tablet 12.5 mg PO DAILY 03/28/21 02/19/22 losartan 50 mg tablet 50 mg PO DAILY 03/28/21 02/19/22 metoprolol succinate 50 mg 50 mg PO DAILY 03/28/21 02/19/22 tablet,extended release 24 hr rabeprazole 20 mg tablet,delayed 20 mg PO DAILY 03/28/21 02/19/22 release alprazolam 0.5 mg tablet 0.5 mg PO PRN PRN 11/05/21 02/19/22 gabapentin 800 mg tablet 900 mg PO TID 11/05/21 02/19/22 celecoxib 100 mg capsule 1,000 cap PO DAILY 02/19/22 02/19/22 cyclobenzaprine 10 mg tablet 10 tab PO TID 02/19/22 02/19/22 exenatide microspheres 2 mg/0.85 1 ea subcut QWEEK 02/19/22 02/19/22 mL subcutaneous auto-injector ([employer] BCise) Allergies Allergy/AdvReac Type Severity Reaction Status Date / Time adhesive tape Allergy Verified 02/19/22 04:22 cortisone Allergy Verified 02/19/22 04:22 General Stated Complaint: Anxiety ANDREA: 3 Review of Systems All systems reviewed & are unremarkable except as noted in HPI and below PFSH All Active Problems (Updated 02/19/22 @ 07:34 by Channing Alfaro DO) Non-ST elevation [place] (NSTEMI) (Acute) ADD (attention deficit disorder) (Acute) Hematuria (Acute) Insomnia (Acute) Neoplasm of unspecified behavior of bone, soft tissue, and skin (Acute) Actinic keratosis (Acute) Acute bursitis of left shoulder (Acute) Medical History Diabetes mellitus GERD (gastroesophageal reflux disease) Hypercholesterolemia Hypertension Surgical History S/P TKR (total knee replacement) bilateral Social History Smoking/Tobacco Use Status: Former Tobacco Use Smoking risk assessment performed?: Yes Alcohol Intake: current Alcohol Intake frequency: 0-2 drinks per day Alcohol type: beer Drug use: Never Substance use type: does not use Current gender identity: male Do you feel safe at home: Yes Do you feel safe in your relationship?: Yes Exam Narrative Exam Narrative: 1.Const: Well-nourished, Well-developed, appearing stated age 2.Eyes: PERRL, no conjunctival injection, and symmetrical lids. 3.ENT: Atraumatic external nose and ears. Moist MM. Neck: Symmetric, trachea midline, No thyromegaly. 4.CVS: +S1/S2, No murmurs or gallops. Peripheral pulses 2+ and equal in all extremities. Brisk capillary refill in all extremities. 5.RESP: Unlabored respiratory effort. Clear to auscultation bilaterally. No wheezes rales or rhonchi 6.GI: Soft, Nontender/Nondistended, No hepatosplenomegaly. No guarding or rebound. 7.MSK: Normocephalic/Atraumatic, Extremities w/o deformity or ttp No cyanosis or clubbing, Normal movement of all extremities 8.Skin: Warm, Dry. No rashes or lesions. 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 Sensation grossly intact, no focal neurologic deficits. 10.Psych: (AAO) x3. Minimally anxious appearing. Course Vital Signs Vital signs: Vital Signs Temperature 36.5 C 02/19/22 04:19 Pulse 98 H 02/19/22 04:19 Respiratory Rate 22 02/19/22 04:19 Blood Pressure 156/106 H 02/19/22 04:19 Temperature 36.5 C 02/19/22 04:19 Pulse 98 H 02/19/22 04:19 Respiratory Rate 22 02/19/22 04:27 Respiratory Effort Non-Labored 02/19/22 04:27 Respiratory Depth Normal 02/19/22 04:27 Respiratory Pattern Normal 02/19/22 04:27 Blood Pressure 146/99 H 02/19/22 04:30 Pain Level 99 02/19/22 04:19 Critical Care Time Critical Care Time Critical Care Time: Yes Total Critical Care Time: 30 Attestation: Upon my evaluation, this patient had a high probability of imminent or life- threatening deterioration, which required my direct attention, intervention, and personal management. I have personally provided 30 minutes of critical care time exclusive of time spent on separately billable procedures. Time includes review of laboratory data, radiology results, discussion with consultants, and monitoring for potential decompensation. Interventions were performed as documented. PAWSS Have you Been Recently Intoxicated or Drunk Within the Last 30 days?: No Have you Ever Experienced Previous Episodes of Alcohol Withdrawal?: No Have you ever Experienced Withdrawal Seizures?: No Have you ever Experienced Delirium Tremens(DT)s?: No Have you ever undergone Alcohol Rehabilitation Treatment (i.e, inpt ot outpatient treatment programs)?: No Have you ever Experienced Blackouts?: No Have you ever Combined Alcohol with other Downers within the last 90 days?: No Have you ever Combined Alcohol with any other Substance of Abuse during the last 90 days?: No Positive Blood Alcohol level on Presentation? [PCS.BAL]: No Evidence of Increased Autonomic Activity (i.e. HR>120, tremor, sweating, agitation, nausea)?: No Result: 0
[2022-02-19 05:12] LABS: Abs Immature Grans 0.01 10^3/uL (0.0-0.06); Absolute Basophil Count 0.02 10^3/uL (0.0-0.2); Absolute Eosinophil Count 0.08 10^3/uL (0.0-0.7); Absolute Monocyte Count 0.48 10^3/uL (0.1-0.8); Absolute Neutrophil Count 7.74 10^3/uL (1.2-6.7); Basophils % 0.2; Eosinophils % 0.9; HCT 47.3 % (40.0-50.0); Immature Grans % 0.1; Lymphocytes % 8.8; MCH 31.7 pg (27.0-33.0); MCHC 33.8 % (32.0-36.0); MCV 94 fL (80-95); MPV 12.1 fL (8.0-11.0); Monocytes % 5.3; Neutrophils % 84.7; Platelet Count 163 10^3/uL (130-400); RBC 5.05 10^6/uL (4.36-5.78); RDW 12.7 % (11.8-14.1); RDW-SD 43.6 fL; WBC 9.13 10^3/uL (4.4-10.8)
[2022-02-19 05:28] LABS: ALT 34 U/L (16-63); AST 23 U/L (15-37); Albumin 3.6 g/dL (3.4-5.0); Alkaline Phosphatase 68 U/L (46-116); Anion Gap 5.2 mmol/L (3-11); BUN 17 mg/dL (7-18); Bilirubin, Total 0.4 mg/dL (0.2-1.0); CO2 26.8 mmol/L (21.0-32.0); Calcium 8.7 mg/dL (8.5-10.1); Chloride 100 mmol/L (98-107); Glucose 274 mg/dL (74-106); Potassium 4.1 mmol/L (3.5-5.1); Sodium 132 mmol/L (136-145); Total Protein 6.7 g/dL (6.4-8.2)
[2022-02-19 05:30] LABS: Troponin I 179 ng/L (<or=60)
--- NOTE | 2022-02-19 06:15 | RT.EKG_ITS ---
APPROVED REPORT Exam: Resting ECG Reason for Exam: chest pain Patient Location: E HR:82 bpm ECG Measurements Heart Rate 82 AXIS OK 185 P 53 QRSd 115 QRS -29 QT 375 T 113 QTc 438 Conclusion Sinus rhythm...normal P axis, V-rate 60- 99 Nonspecific intraventricular conduction delay...QRSd >115mS, not LBBB/RBBB Probable anteroseptal infarct, recent...Q, ST>0.15mV, T neg, V1-V2
[2022-02-19] MEDS: Clopidogrel 300 MG TAB 600 MG PO (07:05)
[2022-02-19 07:43] LABS: Source Nasal/Nares
[2022-02-19 08:14] LABS: PTT Activated 67.5 sec (21.0-27.5); Prothrombin Time 10.5 sec (9.3-11.0)
[2022-02-19 08:24] LABS: Troponin I 334 ng/L (<or=60)
[2022-02-19 08:28] LABS: Calculated LDL 82 mg/dL (<100); Cholesterol 149 mg/dL (<200); HDL Cholesterol 60 mg/dL (40-60); Triglyceride 36 mg/dL (<150)
[2022-02-19 08:44] LABS: COVID-19 PCR Negative (Negative)
[2022-02-19 08:46] LABS: NT-proBNP 4592 pg/mL (<300)
[2022-02-19] MEDS: Losartan 50 MG TAB PO (09:10)
[2022-02-19] MEDS: Famotidine 20 MG TAB PO ×2 (09:10→21:16)
[2022-02-19] MEDS: Metoprolol CR 50 MG TABCR PO (09:10)
[2022-02-19] MEDS: Gabapentin 300 MG CAP 900 MG PO (09:13)
[2022-02-19 09:19] LABS: Lab Add On Test DONE
--- NOTE | 2022-02-19 09:24 | HPE_ITS ---
Date of service: 02/19/22 Time of Service: 08:24 Assessment and Plan Assessment and plan (1) Non-ST elevation [place] (NSTEMI): Status: Acute Assessment and plan: Dr. Alfaro feels the patient has Takotsubo's cardiomyopathy where some are concerned that the patient actually had an NSTEMI although with a left bundle branch block/IVCD, however patient did not meet Sgarbossa criteria. Nevertheless his troponin are rising. He is currently asymptomatic. We will admit him to ICU for close monitoring, echo; treatment w/ BB, ASA, Plavix, and heparin and statin. If he has further pain/pressure, I willl get repeat EKG and call [facility] to try to move up his transfer. He has been accepted to cardiology service of Dr. Garth Thompson at [facility]. Based on his exam (JVD, bibasilar rales) and his symptoms (acute dyspnea at rest) and his elevated BNP of 4600. I will give him one time dose of lasix 20 mg. Critical care time spent interviewing and examining the patient, reviewing studies, discussing case with patient's nurse and consulting physicians was 60 minutes (2) Diabetes mellitus: Status: Chronic Assessment and plan: will cover w/ low dose/insulin sensitive sliding scale; monitor glucose AC/HS and get Hba1c (3) GERD (gastroesophageal reflux disease): Assessment and plan: hold PPI while on Plavix; treat w/ H2 ciara (4) Hypercholesterolemia: Assessment and plan: incr. atorvastatin to 80 mg; check lipid levels (5) Hypertension: Assessment and plan: cotninue Toprol XL and losartan. History of Present Illness History of Present Illness Chief Complaint: chest tightness, dyspnea Narrativ e: 71-year-old male with a history of type 2 diabetes mellitus not on insulin, essential hypertension, hyperlipidemia, presents to the emergency department this morning with acute onset of chest tightness and dyspnea beginning around 3 AM. This woke him up from sleep. Chest pressure lasted for about 20 minutes was across the anterior chest no radiation to the neck jaw arms or back. This is followed by continued feeling of shortness of breath and feeling like the room was closing in on him. The dyspnea continued when he arrived emergency department but the chest pain had resolved. At the time of my interview with the patient at 8:38 AM he is feeling fine has no symptoms of dyspnea or chest discomfort. He says he has had similar attacks in the past not associated with any physical activity is just be a feeling of anxiety with a feeling like the room is closing in on him. In the emergency department Dr. Alfaro treated with lorazepam 1 mg which alleviated his feelings of dyspnea. Dr. Alfaro did an EKG and found that the patient has a new LBBB which led to checking troponin levels which was elevated at 179. Dr. Alfaro did a bedside POCUS echo which demons trated apical to mid LV severe hypokinesis. Dr. Alfaro called [facility] cardiology and spoke w/ Dr. Castro and the patient was accepted for transfer pending bed availability to service of Dr. Garth Thompson. Per Dr. Alfaro, the EKG did not meet Sgarbossa criteria. He feels that the patient is suffering from Takotsubo. The patient has hx of anxiety disorder and has been on Lexapro but did not take it for past week as he forgot to put it in his pill container. Dr. Alfaro has started the patient on heparin drip, gave him ASA and Plavix. Patient will be admitted to ICU for medical management of NSTEMI pending transfer to [facility]. Review of Systems All systems reviewed & are unremarkable except as noted in HPI and below PFSH All Active Problems Diabetes mellitus (Chronic) Non-ST elevation [place] (NSTEMI) (Acute) ADD (attention deficit disorder) (Acute) Hematuria (Acute) Insomnia (Acute) Neoplasm of unspecified behavior of bone, soft tissue, and skin (Acute) Actinic keratosis (Acute) Acute bursitis of left shoulder (Acute) Medical History GERD (gastroesophageal reflux disease) Hypercholesterolemia Hypertension Surgical History H/O esophagogastroduodenoscopy S/P lumbar spine operation (~10/2021) [facility] Dr. Antonio; L2-L3 S/P TKR (total knee replacement) (~10/2020) s/p bilateral TKA; Left 09/04, Right 11/06 S/P tonsillectomy Social History Smoking/Tobacco Use Status: Former Tobacco Use Smoking risk assessment performed?: Yes Alcohol Intake: current Alcohol Intake frequency: 0-2 drinks per day Alcohol type: beer Drug use: Never Substance use type: does not use Current gender identity: male Do you feel safe at home: Yes Do you feel safe in your relationship?: Yes Meds Allergies and Home Medications Allergies Allergy/AdvReac Type Severity Reaction Status Date / Time adhesive tape Allergy Verified 02/19/22 04:22 cortisone Allergy Verified 02/19/22 04:22 Home Medications Medication Instructions Recorded Confirmed Type aspirin 81 mg chewable tablet 81 mg PO DAILY 03/28/21 02/19/22 History atorvastatin 20 mg tablet 20 mg PO QHS 03/28/21 02/19/22 History canagliflozin 100 mg tablet 100 mg PO DAILY 03/28/21 02/19/22 History glimepiride 4 mg tablet 4 mg PO BID 03/28/21 02/19/22 History hydrochlorothiazide 12.5 mg tablet 12.5 mg PO DAILY 03/28/21 02/19/22 History losartan 50 mg tablet 50 mg PO DAILY 03/28/21 02/19/22 History metoprolol succinate 50 mg 50 mg PO DAILY 03/28/21 02/19/22 History tablet,extended release 24 hr rabeprazole 20 mg tablet,delayed 20 mg PO DAILY 03/28/21 02/19/22 History release alprazolam 0.5 mg tablet 0.5 mg PO PRN PRN 11/05/21 02/19/22 History gabapentin 800 mg tablet 900 mg PO TID 11/05/21 02/19/22 History celecoxib 100 mg capsule 1,000 cap PO DAILY 02/19/22 02/19/22 History cyclobenzaprine 10 mg tablet 10 tab PO TID 02/19/22 02/19/22 History exenatide microspheres 2 mg/0.85 1 ea subcut QWEEK 02/19/22 02/19/22 History mL subcutaneous auto-injector (Bymiryam Ricahrdson) Exam Narrative Exam Narrative: Patient was seen in emergency department he is in no acute distress he sitting up on the ER gurrowe. He is alert late middle-aged white male who is awake. HEENT is remarkable for glasses, white haired, bearded/mustache; PERRLA/EOMI, fundi without papilledema or retinopathy. Oropharynx noninjected no exudate teeth are in fair repair Neck is supple nontender normal carotid pulses he has overt JVD to the angle of his mandible. Lungs are clear anteriorly posteriorly has bibasilar rales no rhonchi or wheezes Heart is regular normal S1, S2 is single component. No appreciable murmur rub Abdomen is soft nontender normal bowel sounds no tenderness no organomegaly. Extremities without peripheral cyanosis or edema. Pedal pulses are intact although diminished. Sensory exam grossly intact by touch Neuro exam no focal cranial nerve deficits no focal motor deficits. Results Imaging EKG: image reviewed Labs Result diagrams: 02/19/22 05:05 02/19/22 05:05 Labs: Laboratory Results - last 24 hr 02/19/22 02/19/22 02/19/22 04:58 04:58 05:05 WBC RBC Hgb Hct MCV MCH MCHC RDW Plt Count MPV Immature Gran % Neutrophils % Lymphocytes % Monocytes % Eosinophils % Basophils % Nucleated RBC % Absolute Neutrophils Absolute Lymphocytes Absolute Monocytes Absolute Eosinophils Absolute Basophils PT INR APTT Sodium 132 L Potassium 4.1 Chloride 100 Carbon Dioxide 26.8 Anion Gap 5.2 BUN 17 Creatinine 1.0 Estimated GFR/1.73 m2 >= 60.00 Glucose 274 H Calcium 8.7 Total Bilirubin 0.4 AST 23 ALT 34 Alkaline Phosphatase 68 Troponin I 179 H* NT-Pro-B Natriuret Pep 4592 H Total Protein 6.7 Albumin 3.6 Triglycerides 36 Total Cholesterol 149 LDL Cholesterol, Calc 82 HDL Cholesterol 60 COVID-19 Source SARS-CoV-2 (PCR) Add-On Test Request DONE 02/19/22 02/19/22 02/19/22 05:05 07:15 07:37 WBC 9.13 RBC 5.05 Hgb 16.0 Hct 47.3 MCV 94 MCH 31.7 MCHC 33.8 RDW 12.7 Plt Count 163 MPV 12.1 H Immature Gran % 0.1 Neutrophils % 84.7 Lymphocytes % 8.8 Monocytes % 5.3 Eosinophils % 0.9 Basophils % 0.2 Nucleated RBC % 0.0 Absolute Neutrophils 7.74 H Absolute Lymphocytes 0.80 L Absolute Monocytes 0.48 Absolute Eosinophils 0.08 Absolute Basophils 0.02 PT Cancelled INR Cancelled APTT Cancelled Sodium Potassium Chloride Carbon Dioxide Anion Gap BUN Creatinine Estimated GFR/1.73 m2 Glucose Calcium Total Bilirubin AST ALT Alkaline Phosphatase Troponin I NT-Pro-B Natriuret Pep Total Protein Albumin Triglycerides Total Cholesterol LDL Cholesterol, Calc HDL Cholesterol COVID-19 Source Nasal/Nares SARS-CoV-2 (PCR) Negative Add-On Test Request 02/19/22 02/19/22 02/19/22 07:55 07:55 13:30 WBC RBC Hgb Hct MCV MCH MCHC RDW Plt Count MPV Immature Gran % Neutrophils % Lymphocytes % Monocytes % Eosinophils % Basophils % Nucleated RBC % Absolute Neutrophils Absolute Lymphocytes Absolute Monocytes Absolute Eosinophils Absolute Basophils PT 10.5 INR 1.0 APTT 67.5 H Cancelled Sodium Potassium Chloride Carbon Dioxide Anion Gap BUN Creatinine Estimated GFR/1.73 m2 Glucose Calcium Total Bilirubin AST ALT Alkaline Phosphatase Troponin I 334 H* NT-Pro-B Natriuret Pep Total Protein Albumin Triglycerides Total Cholesterol LDL Cholesterol, Calc HDL Cholesterol COVID-19 Source SARS-CoV-2 (PCR) Add-On Test Request Last Vital Signs Temp 36.5 C 02/19/22 04:19 Pulse 77 02/19/22 08:31 Resp 19 02/19/22 08:42 BP 133/86 02/19/22 08:31 Pulse Ox 95 02/19/22 08:42 PAWSS Have you Been Recently Intoxicated or Drunk Within the Last 30 days?: No Have you Ever Experienced Previous Episodes of Alcohol Withdrawal?: No Have you ever Experienced Withdrawal Seizures?: No Have you ever Experienced Delirium Tremens(DT)s?: No Have you ever undergone Alcohol Rehabilitation Treatment (i.e, inpt ot outpatient treatment programs)?: No Have you ever Experienced Blackouts?: No Have you ever Combined Alcohol with other Downers within the last 90 days?: No Have you ever Combined Alcohol with any other Substance of Abuse during the last 90 days?: No Positive Blood Alcohol level on Presentation? [PCS.BAL]: No Evidence of Increased Autonomic Activity (i.e. HR>120, tremor, sweating, agitation, nausea)?: No Result: 0
[2022-02-19] MEDS: Normal Saline Flush 10 ML SYR IVP (10:24)
[2022-02-19] MEDS: Furosemide 20 MG/2 ML VIAL IVP (10:24)
[2022-02-19] MEDS: Insulin Aspart 300 UNITS/3 ML PEN SC ×4 (10:35→21:18)
--- NOTE | 2022-02-19 10:46 | CCONE_ITS ---
Date of service: 02/19/22 Time of Service: 09:46 Assessment and Plan Assessment and plan (1) Non-ST elevation OH (NSTEMI): Status: Acute Assessment and plan: Patient has a non ST elevation myocardial infarction. He is currently comfortable and hemodynamically stable. Ideally a formal echocardiogram should be performed, but the machine is currently broken. I agree with current management, plans for cardiac catheterization Thank you for the opportunity to participate in the care of this patient History of Present Illness History of Present Illness Chief Complaint: Panic attack, shortness of breath Narrative: This 71-year-old man presented to the hospital with what he felt was a panic attack. He reports that he awakened from sleep to go to the bathroom and when he tried to go back to bed he felt panicky, claustrophobic, and as though the room was closing in and he could not breathe. He has had similar symptoms before, for which he was prescribed Lexapro. Reportedly he had forgotten to take the Lexapro for several days or a week prior to presentation. His symptoms persisted and he went outside to get air. He had some type of sensation in his chest which was not well characterized. He thought he would drive to the hospital but when he got in the car he felt worse so he got out and called 911. He was brought here to the hospital by ambulance. He was given Ativan in the ER which he reports immediately relieved his symptoms. EKG today showed left axis deviation, IVCD like incomplete left bundle branch block and anterior Q waves. Compared to an EKG from November, the IVCD was more prolonged and axis is now left. Troponins in the ER were elevated. He also reportedly had a [id number] ultrasound that showed wall motion abnormalities in the LAD distribution. At present the patient is comfortable. He denies ongoing shortness of breath or chest discomfort [facility] was contacted by the emergency room. He is tentatively to be transferred there tomorrow pending bed availability. He has been loaded with Plavix, started on heparin PFSH All Active Problems Diabetes mellitus (Chronic) Non-ST elevation OH (NSTEMI) (Acute) ADD (attention deficit disorder) (Acute) Hematuria (Acute) Insomnia (Acute) Neoplasm of unspecified behavior of bone, soft tissue, and skin (Acute) Actinic keratosis (Acute) Acute bursitis of left shoulder (Acute) Medical History GERD (gastroesophageal reflux disease) Hypercholesterolemia Hypertension Surgical History H/O esophagogastroduodenoscopy S/P lumbar spine operation (~10/2021) [facility] Dr. Antonio; L2-L3 S/P TKR (total knee replacement) (~10/2020) s/p bilateral TKA; Left 09/04, Right 11/06 S/P tonsillectomy Social History Smoking/Tobacco Use Status: Former Tobacco Use Smoking risk assessment performed?: Yes Alcohol Intake: current Alcohol Intake frequency: 0-2 drinks per day Alcohol type: beer Drug use: Never Substance use type: does not use Current gender identity: male Do you feel safe at home: Yes Do you feel safe in your relationship?: Yes Exam Const Other: Well-developed well-nourished normal weight no acute distress Neck Other: No neck vein distention normal carotid upstrokes no bruits Resp Auscultation: clear to auscultation bilaterally Cardio Other: Heart is regular normal S1-S2 physiologically split no murmur or gallop Skin Other: Warm and dry Extrem Other: Feet are cool, no edema, normal distal pulses Results Last Vital Signs Temp 36.9 C 02/19/22 09:55 Pulse 79 02/19/22 10:01 Resp 20 02/19/22 10:01 BP 134/78 02/19/22 10:01 Pulse Ox 95 02/19/22 09:38 Labs Result diagrams: 02/19/22 05:05 02/19/22 05:05 Labs: Laboratory Results - last 24 hr 02/19/22 02/19/22 02/19/22 04:58 04:58 05:05 WBC RBC Hgb Hct MCV MCH MCHC RDW Plt Count MPV Immature Gran % Neutrophils % Lymphocytes % Monocytes % Eosinophils % Basophils % Nucleated RBC % Absolute Neutrophils Absolute Lymphocytes Absolute Monocytes Absolute Eosinophils Absolute Basophils PT INR APTT Sodium 132 L Potassium 4.1 Chloride 100 Carbon Dioxide 26.8 Anion Gap 5.2 BUN 17 Creatinine 1.0 Estimated GFR/1.73 m2 >= 60.00 Glucose 274 H Calcium 8.7 Total Bilirubin 0.4 AST 23 ALT 34 Alkaline Phosphatase 68 Troponin I 179 H* NT-Pro-B Natriuret Pep 4592 H Total Protein 6.7 Albumin 3.6 Triglycerides 36 Total Cholesterol 149 LDL Cholesterol, Calc 82 HDL Cholesterol 60 COVID-19 Source SARS-CoV-2 (PCR) Add-On Test Request DONE 02/19/22 02/19/22 02/19/22 05:05 07:15 07:37 WBC 9.13 RBC 5.05 Hgb 16.0 Hct 47.3 MCV 94 MCH 31.7 MCHC 33.8 RDW 12.7 Plt Count 163 MPV 12.1 H Immature Gran % 0.1 Neutrophils % 84.7 Lymphocytes % 8.8 Monocytes % 5.3 Eosinophils % 0.9 Basophils % 0.2 Nucleated RBC % 0.0 Absolute Neutrophils 7.74 H Absolute Lymphocytes 0.80 L Absolute Monocytes 0.48 Absolute Eosinophils 0.08 Absolute Basophils 0.02 PT Cancelled INR Cancelled APTT Cancelled Sodium Potassium Chloride Carbon Dioxide Anion Gap BUN Creatinine Estimated GFR/1.73 m2 Glucose Calcium Total Bilirubin AST ALT Alkaline Phosphatase Troponin I NT-Pro-B Natriuret Pep Total Protein Albumin Triglycerides Total Cholesterol LDL Cholesterol, Calc HDL Cholesterol COVID-19 Source Nasal/Nares SARS-CoV-2 (PCR) Negative Add-On Test Request 02/19/22 02/19/22 02/19/22 07:55 07:55 13:30 WBC RBC Hgb Hct MCV MCH MCHC RDW Plt Count MPV Immature Gran % Neutrophils % Lymphocytes % Monocytes % Eosinophils % Basophils % Nucleated RBC % Absolute Neutrophils Absolute Lymphocytes Absolute Monocytes Absolute Eosinophils Absolute Basophils PT 10.5 INR 1.0 APTT 67.5 H Cancelled Sodium Potassium Chloride Carbon Dioxide Anion Gap BUN Creatinine Estimated GFR/1.73 m2 Glucose Calcium Total Bilirubin AST ALT Alkaline Phosphatase Troponin I 334 H* NT-Pro-B Natriuret Pep Total Protein Albumin Triglycerides Total Cholesterol LDL Cholesterol, Calc HDL Cholesterol COVID-19 Source SARS-CoV-2 (PCR) Add-On Test Request
[2022-02-19 11:46] LABS: Troponin I 458 ng/L (<or=60)
[2022-02-19] MEDS: Gabapentin 300 MG CAP PO ×2 (13:39→21:16)
[2022-02-19 14:01] LABS: PTT Activated 29.1 sec (21.0-27.5)
[2022-02-19 14:24] LABS: Troponin I 399 ng/L (<or=60)
[2022-02-19 21:10] LABS: PTT Activated 32.1 sec (21.0-27.5)
[2022-02-19] MEDS: Atorvastatin 40 MG TAB 80 MG PO (21:15)
[2022-02-19] MEDS: ALPRAZolam 0.5 MG TAB PO (21:45)
--- NOTE | 2022-02-19 22:32 | NUR.NOTE ---
Nursing Note: 02[place]19/22 [facility] [place] with [place] availability. Per pt request a message was left for [facility]'s gastro dept to let them know [place] will [place] [facility] [place] and may not make his 02/21 appointment with gastro.
[2022-02-20] VITALS (66 sets, daily range): BP systolic 111–132; BP diastolic 67–90; PULSE 64–83; RESP 10–22; TEMP 36.1–36.9; O2SAT 95–97
--- NOTE | 2022-02-20 | DI.US_ITS ---
APPROVED REPORT EXAM: Comprehensive 2D, Doppler, and color-flow Echocardiogram Patient Location: In-Patient Room/Bed: [facility] Piping Designer: Tawnya Salas RDCS (AE) Indications: MD, Evaluate LV Other Information Study Quality: Fair Conclusion Technically limited study The left ventricle appears enlarged. Systolic function is reduced. There are apical and anterior wa ll motion abnormalities. EF is estimated at 25 to 30% Right ventricle was not well visualized Both atria are grossly normal in size No structural or hemodynamically significant valvular abnormalities were identified Wall motion Left Ventricle Left ventricle is moderately dilated. Left ventricular systolic function is moderate to severely decr eased. There is normal left ventricular wall thickness. Regional wall motion abnormalities are noted. There is no ventricular septal defect visualized. LVEF is 23%. Right Ventricle Right ventricle is not well visualized. Right ventricular systolic function could not be assessed. Atria The left atrium size is normal. The right atrium size is normal. The interatrial septum is intact wit h no evidence for an atrial septal defect. Aortic Valve The aortic valve is normal in structure. Aortic valve is probably trileaflet. There is no aortic valv ular stenosis. No aortic regurgitation is present. Mitral Valve The mitral valve is normal in structure. No evidence of mitral valve stenosis. Trace mitral regurgita tion. Tricuspid Valve The tricuspid valve is normal in structure. There is no tricuspid valve stenosis. Trace tricuspid reg urgitation. Unable to assess PA pressure. Pulmonic Valve The pulmonary valve is normal in structure. There is no pulmonic valvular stenosis. There is no pulmo sondra valvular regurgitation. Great Vessels The aortic root is normal in size. The ascending aorta is normal in size. IVC is normal in size and c ollapses >50% with inspiration. Pericardium There is no pericardial effusion. 2D Dimensions IVSD d PLAX 1.00 cm M: 0.6-1.2 LVPW d PLAX 1.00 cm M: 0.6 - 1.2 LVID d PLAX 6.41 cm M: 4.2 - 5.8 LVDs 5.70 cm M: 2.5 - 4.0 Ao Root d 3.20 cm M: 3.1 - 3.7 Ao Asc Diam d 3.30 cm M: 2.6 - 3.4 LV EF Jesse 23.0 %
[2022-02-20 04:34] LABS: PTT Activated 39.9 sec (21.0-27.5)
[2022-02-20 07:59] LABS: Abs Immature Grans 0.01 10^3/uL (0.0-0.06); Absolute Basophil Count 0.03 10^3/uL (0.0-0.2); Absolute Eosinophil Count 0.17 10^3/uL (0.0-0.7); Absolute Lymphocyte Count 1.41 10^3/uL (1.2-3.4); Absolute Monocyte Count 0.45 10^3/uL (0.1-0.8); Basophils % 0.6; Eosinophils % 3.3; HCT 46.1 % (40.0-50.0); HGB 15.4 g/dL (13.5-17.5); Immature Grans % 0.2; Lymphocytes % 27.3; MCH 31.4 pg (27.0-33.0); MCHC 33.4 % (32.0-36.0); MCV 94 fL (80-95); MPV 11.9 fL (8.0-11.0); Monocytes % 8.7; Neutrophils % 59.9; Platelet Count 141 10^3/uL (130-400); RBC 4.91 10^6/uL (4.36-5.78); RDW 12.8 % (11.8-14.1); RDW-SD 43.8 fL; WBC 5.17 10^3/uL (4.4-10.8)
[2022-02-20 08:09] LABS: Anion Gap 6.4 mmol/L (3-11); BUN 14 mg/dL (7-18); CO2 28.6 mmol/L (21.0-32.0); CREATININE 0.9 mg/dL (0.70-1.30); Chloride 103 mmol/L (98-107); Glucose 211 mg/dL (74-106); Magnesium 2.1 mg/dL (1.8-2.4); Potassium 4.2 mmol/L (3.5-5.1); Sodium 138 mmol/L (136-145)
--- NOTE | 2022-02-20 08:41 | CMPROGNOTE_ITS ---
- If Service Date Differs Date of service: 02/20/22 Time of Service: 08:41 Care Management Progress Note Per Ophthalmic Pathologist and Hospitalist, Fuad will be transferred [place] [facility] [place] a bed becomes available. He will transport via EMS, coordinated by nursing shift supervisor.
--- NOTE | 2022-02-20 08:41 | PDOC.CMPRO ---
- If Service Date Differs Date of service: 02/20/22 Time of Service: 08:41 Care Management Progress Note Per Cream Dumper and Hospitalist, Fuad will be transferred [place] [facility] [place]. He will transport via EMS, coordinated by nursing orange picking supervisor.
[2022-02-20] MEDS: Furosemide 20 MG/2 ML VIAL IVP (09:07)
[2022-02-20] MEDS: Aspirin E.C. 81 MG TABEC PO (09:08)
[2022-02-20] MEDS: Metoprolol CR 50 MG TABCR PO (09:08)
[2022-02-20] MEDS: Clopidogrel 75 MG TAB PO (09:08)
[2022-02-20] MEDS: Insulin Aspart 300 UNITS/3 ML PEN SC ×2 (09:08→11:48)
[2022-02-20] MEDS: Losartan 50 MG TAB PO (09:08)
[2022-02-20] MEDS: Famotidine 20 MG TAB PO (09:09)
[2022-02-20] MEDS: Gabapentin 300 MG CAP PO ×2 (09:09→15:01)
[2022-02-20] MEDS: Normal Saline Flush 10 ML SYR IVP (09:09)
--- NOTE | 2022-02-20 11:38 | DSE_ITS ---
Date of service: 02/20/22 Time of Service: 08:50 DS: Diagnosis Discharge Diagnosis (1) Non-ST elevation [place] (NSTEMI): Status: Acute (2) Diabetes mellitus: Status: Chronic (3) GERD (gastroesophageal reflux disease): (4) Hypercholesterolemia: (5) Hypertension: Discharge Plan Disposition Patient Disposition: [facility] Condition: Stable Discharge Details Reason For Visit: NSTEMI, Takotsubo Cardiomyopathy Admit Date/Time: 02/19/22 07:30 Admit Provider: Luis Purcell Attending Provider: Luis Purcell Primary Care Provider: Navin Souza Hospital Course Hospital Course: Mr Pendleton is a 71 year old male with PMhx of NIDDM2, hypertension, hyperlipidemia, who was admitted to [facility] hospitalist service on 02/19/22 with acute onset of chest tightness/pressure and dyspnea which woke him up from sleep, lasting about 20 minutes, having resolved by the time of arrival of the ED. The patient did have an elevation in his troponins (179-> 334 -> 458 - >399). His EKG is now showing worsening of AICD consistent with incomplete LBBB. He was given a full dose of aspirin, loaded with plavix and started on heparin gtt. He also received a dose of 20 mg of IV lasix x1 for mild fluid overload. There was a question of Takotsubo's cardiomyopathy by POCUS in the ED. He was evaluated by cardiology here and is felt to benefit from a cardiac cath. An echocardiogram could not be obtained on the day of admission due to a broken machine; it is being attempted today, but read is not yet available. He was accepted in transfer to [facility] cardiology by Dr Kemar Thompson for further ischemic workup. He is hemodynamically stable and remains chest pain free since admission. He is in agreement for transfer. Care for patient as well as completion of his transfer summary on day of transfer took 45 minutes. Please, see MAR for list of his inpatient medications. The list of medications below reflects outpatient prescriptions. Home Meds and New Rx's Prescriptions: No Action alprazolam 0.5 mg tablet 0.5 mg PO PRN PRN Label Comments: TAKE 1 TABLET BY MOUTH EVERY NIGHT AT BEDTIME NEEDED cyclobenzaprine 10 mg tablet 10 tab PO TID Label Comments: TAKE ONE TABLET BY MOUTH EVERY 8 HOURS NEEDED celecoxib 100 mg capsule 100 mg PO BID Bydureon BCise 2 mg/0.85 mL auto-injector 1 ea SUBCUT QWEEK gabapentin 300 mg capsule 300 mg PO TID Label Comments: TAKE ONE CAPSULE BY MOUTH THREE TIMES A DAY losartan 50 mg Tablet 50 mg PO DAILY rabeprazole 20 mg Tablet,Delayed Release (Dr/Ec) 20 mg PO BID atorvastatin 20 mg Tablet 20 mg PO QHS metoprolol succinate 50 mg Tablet Extended Release 24 Hr 50 mg PO DAILY glimepiride 4 mg Tablet 4 mg PO BID aspirin 81 mg Tablet,Chewable 81 mg PO DAILY hydrochlorothiazide 12.5 mg Tablet 12.5 mg PO DAILY canagliflozin 100 mg Tablet 100 mg PO DAILY Discharge Instructions Instructions: Heart Attack (DC), Heart Catheterization (DC) Referrals: Navin Souza MD [Primary Care Provider] - Carmina Cristina MD [ [facility] STAFF PHYSICIAN] - Activity:: OOB to chair Diet:: carb consistent heart healthy Discharge Orders Discharge Orders: Discharge Order (Routine); Ordered 02/20/22 Ordered By: Cassidy Wu DS: Summary Time Spent with Patient providing and/or coordinating discharge services: Greater than 30 minutes Status at Discharge Functional status at discharge: independent ambulation Overall status at discharge: patient is progressing back to baseline Mental Status: mental status grossly normal Speech and Movement: speech and movement normal Mood: congruent mood Affect: normal affect Exam Narrative Exam Narrative: General: Pleasant middle-aged male who is getting an echocardiogram, A&Ox3, appears comfortable HEENT: EOMI, MMM Heart: RRR, no m/r/g Lungs: CTAB anteriorly Abdomen: soft, nontender, nondistended Extremities: no edema BLEs. Psych Mental Status: mental status grossly normal Speech and Movement: speech and movement normal Mood: congruent mood Affect: normal affect DS: Data Vitals/I&O Vitals and I&O: Vital Signs Temperature 36.8 C 02/20/22 09:22 Temperature Source Tympanic 02/20/22 09:22 Pulse 68 02/20/22 09:22 Pulse 72 02/20/22 09:15 Respiratory Rate 20 02/20/22 09:22 Respiratory Effort 02/20/22 09:22 Respiratory Depth Normal 02/20/22 09:22 Respiratory Pattern Normal 02/20/22 09:22 Blood Pressure 122/75 02/20/22 09:01 Blood Pressure Mean 85 02/20/22 09:01 Blood Pressure Position Supine 02/20/22 09:22 Pulse Oximetry 95 02/20/22 09:22 Oxygen Delivery Method Room Air 02/20/22 09:22 Oxygen Flow Rate 0 02/20/22 09:22 Pain Level 0 02/20/22 09:22 Intake & Output 02/19/22 02/19/22 02/20/22 11:59 23:59 11:59 Intake Total 200 / 2216.369 7918.766 / 1710.766 251.066 / 251.066 Output Total 1850 / 3650 1800 / 3650 2700 / 2700 Balance -1650 / -1939.234 -289.234 / -1939.234 -2448.934 / -2448.934 Weight 109.2 kg 107.1 kg Intake: IV 163.766 / 163.766 251.066 / 251.066 Oral 200 / 1547 1347 / 1547 Output: Urine 1850 / 3650 1800 / 3650 2700 / 2700 Other: Urine Color Yellow Yellow Yellow Urine Appearance Clear Clear Clear Urine Odor Normal Normal None Comment pt has used the urinal for 700cc's of light colored clear urine so far this shift. Dipstick +for glucose Voiding Methods Urinal Urinal Urinal Data Completed and Pending Pending studies at discharge: echo Labs on day of discharge: Labs from last 24 hours 02/20/22 02/20/22 02/20/22 12:30 07:50 07:50 WBC 5.17 RBC 4.91 Hgb 15.4 Hct 46.1 MCV 94 MCH 31.4 MCHC 33.4 RDW 12.8 Plt Count 141 MPV 11.9 H Immature Gran % 0.2 Neutrophils % 59.9 Lymphocytes % 27.3 Monocytes % 8.7 Eosinophils % 3.3 Basophils % 0.6 Nucleated RBC % 0.0 Absolute Neutrophils 3.10 Absolute Lymphocytes 1.41 Absolute Monocytes 0.45 Absolute Eosinophils 0.17 Absolute Basophils 0.03 APTT Pending Sodium 138 Potassium 4.2 Chloride 103 Carbon Dioxide 28.6 Anion Gap 6.4 BUN 14 Creatinine 0.9 Estimated GFR/1.73 m2 >= 60.00 Glucose 211 H Hemoglobin A1c Calcium 9.0 Magnesium 2.1 Troponin I 02/20/22 02/19/22 02/19/22 04:06 20:19 13:53 WBC RBC Hgb Hct MCV MCH MCHC RDW Plt Count MPV Immature Gran % Neutrophils % Lymphocytes % Monocytes % Eosinophils % Basophils % Nucleated RBC % Absolute Neutrophils Absolute Lymphocytes Absolute Monocytes Absolute Eosinophils Absolute Basophils APTT 39.9 H 32.1 H Sodium Potassium Chloride Carbon Dioxide Anion Gap BUN Creatinine Estimated GFR/1.73 m2 Glucose Hemoglobin A1c Calcium Magnesium Troponin I 399 H* 02/19/22 02/19/22 02/19/22 13:20 10:50 04:50 WBC RBC Hgb Hct MCV MCH MCHC RDW Plt Count MPV Immature Gran % Neutrophils % Lymphocytes % Monocytes % Eosinophils % Basophils % Nucleated RBC % Absolute Neutrophils Absolute Lymphocytes Absolute Monocytes Absolute Eosinophils Absolute Basophils APTT 29.1 H Sodium Potassium Chloride Carbon Dioxide Anion Gap BUN Creatinine Estimated GFR/1.73 m2 Glucose Hemoglobin A1c 7.0 H Calcium Magnesium Troponin I 458 H* PFSH All Active Problems Diabetes mellitus (Chronic) Non-ST elevation VT (NSTEMI) (Acute) ADD (attention deficit disorder) (Acute) Hematuria (Acute) Insomnia (Acute) Neoplasm of unspecified behavior of bone, soft tissue, and skin (Acute) Actinic keratosis (Acute) Acute bursitis of left shoulder (Acute) Medical History GERD (gastroesophageal reflux disease) Hypercholesterolemia Hypertension Surgical History H/O esophagogastroduodenoscopy S/P lumbar spine operation (~10/2021) [facility] Dr. Antonio; L2-L3 S/P TKR (total knee replacement) (~10/2020) s/p bilateral TKA; Left 09/04, Right 11/06 S/P tonsillectomy Social History Smoking/Tobacco Use Status: Former Tobacco Use Smoking risk assessment performed?: Yes Alcohol Intake: current Alcohol Intake frequency: 0-2 drinks per day Alcohol type: beer Drug use: Never Substance use type: does not use Current gender identity: male Do you feel safe at home: Yes Do you feel safe in your relationship?: Yes
[2022-02-20 13:18] LABS: PTT Activated 44.2 sec (21.0-27.5)
== END 2022-02-20 18:30 | disposition short-term general hospital (02) | DRG 282 ==
LOC: ER 07:44 → ICU 09:20
PROVIDERS: Internal Medicine; Admitting Provider Internal Medicine; Emergency Provider Student in an Organized Health Care Education/Training Program; PCP Family Medicine; Visit Provider Internal Medicine
DX: I21.4 Non-ST elevation (NSTEMI) myocardial infarction (principal); K21.9 Gastro-esophageal reflux disease without esophagitis; I10 Essential (primary) hypertension; E78.00 Pure hypercholesterolemia, unspecified; E11.9 Type 2 diabetes mellitus without complications; I44.7 Left bundle-branch block, unspecified; F98.8 Other specified behavioral and emotional disorders with onset usually occurring in childhood and adolescence; G47.00 Insomnia, unspecified; F41.9 Anxiety disorder, unspecified; Z66 Do not resuscitate; Z96.653 Presence of artificial knee joint, bilateral; Z87.891 Personal history of nicotine dependence; Z79.84 Long term (current) use of oral hypoglycemic drugs; Z79.82 Long term (current) use of aspirin
CPT/HCPCS: 36415; 36416; 80048; 80053; 80061; 82962; 87635; 93005; 93306; 99222; 99291; 83036; 83735; 83880; 84484; 85025; 85610; 85730; 93010; 99239; J1941

== ENCOUNTER 2022-04-06 10:00 | Outpatient (RCR) | payer MEDICARE, OTHER, SELFPAY | END 2022-04-15 23:59 | disposition home or self-care (01) | LOC: CR 10:00 | PROVIDERS: PCP Family Medicine; Visit Provider Internal Medicine Cardiovascular Disease | DX: Z51.89 Encounter for other specified aftercare (principal); I25.2 Old myocardial infarction; Z95.5 Presence of coronary angioplasty implant and graft; I50.23 Acute on chronic systolic (congestive) heart failure | CPT/HCPCS: S9472 ==

== ENCOUNTER 2022-04-08 04:09 | Observation (INO) | payer MEDICARE, OTHER, SELFPAY ==
[2022-04-08] VITALS (50 sets, daily range): BP systolic 106–172; BP diastolic 63–114; PULSE 60–109; RESP 6–24; TEMP 36.9–38.6; O2SAT 86–99
--- NOTE | 2022-04-08 | DI.CT_ITS ---
Exam(s) CT ABDOMEN PELVIS W EXAM: CT ABDOMEN PELVIS W CLINICAL HISTORY: RUQ abdominal pain and fever. TECHNIQUE: Imaging Protocol: Axial computed tomography images with coronal and sagittal reformatted images were created and reviewed CONTRAST MATERIAL: Intravenous: Omnipaque 100cc Oral: None COMPARISON: CT CT CHEST PE CTA from 04/08/2022 FINDINGS: VISUALIZED LUNG BASES: Infiltrates in both lung bases noted. No pleural effusions. ABDOMEN: There is no generalized ascites. LIVER: There are no focal hepatic lesions evident . GALLBLADDER/BILIARY: Gallbladder is abnormal. Gallbladder wall is edematous and there is pericholecy stic fluid. Consistent with acute cholecystitis. No obvious radiopaque gallstones noted in the gall bladder lumen. CBD not dilated. PANCREAS: No evidence of pancreatitis nor pancreatic mass. No dilatation of the pancreatic duct. SPLEEN: Spleen is not enlarged. No obvious intrasplenic lesions. Splenic and portal veins are paten t. ADRENALS: There are no significant adrenal masses. KIDNEYS:No cysts evident. No solid renal masses. No calculi nor hydronephrosis.. There is streakin g seen around both kidneys. ABDOMINAL AORTA: Abdominal aorta is not enlarged. Iliac arteries are not enlarged. LYMPH NODES:There is no retroperitoneal nor paraaortic adenopathy. ABDOMINAL WALL: Fat containing left inguinal hernia is noted GI: There is no evidence of bowel obstruction, free air, nor abscess. PELVIS: GI: No evidence of appendicitis.There is sigmoid diverticulosis but no obvious acute diverticulitis. LYMPH NODES: There is no intrapelvic nor inguinal adenopathy. REPRODUCTIVE: Prostate size normal for age. Seminal vesicles appear unremarkable. URINARY BLADDER: No calculi nor obvious masses evident OSSEOUS: No significant osseous lesions. Sacroiliac joints unremarkable. There is a right-sided langley inectomy in the lower lumbar spine. There is retrolisthesis L2 upon L3. The appearance of the endpl ates at L2-3 raises concern for possible discitis-osteomyelitis Other: Air is noted within subcutaneous injection sites left side of the anterior abdominal wall. IMPRESSION: 1. Findings are consistent with acute cholecystitis. Ultrasound recommended. CBD not grossly dilate d. 2. Multilevel degenerative disc disease. Also mild retrolisthesis L2 upon L3 and the appearance of t he endplates the L2-3 level raises concern for possible discitis/osteomyelitis. No evidence of umair leonor abscess. Correlation with any prior spine imaging studies recommended. Consider MRI of the yashira mbar spine without and with IV contrast. Study 1st read by [facility]. RADIATION DOSE DELIVERED: 1,004.11mGy.cm Total DLP DATA REPOSITORY: All CT scans at this facility are submitted to the National Radiology Data Registry (NRDR) Dose Index Registry (DIR) with the [employer] (A[employer]). RADIATION OPTIMIZATION: All CT scans at this facility use at least one of these dose optimization te chniques: automated exposure control; mA and/or kV adjustment per patient size (includes targeted exa ms where dose is matched to clinical indication); or iterative reconstruction.
--- NOTE | 2022-04-08 04:00 | RT.EKG_ITS ---
APPROVED REPORT Exam: Resting ECG Reason for Exam: chest pain Patient Location: E HR:61 bpm ECG Measurements Heart Rate 61 AXIS SC 183 P 39 QRSd 119 QRS 58 QT 418 T 90 QTc 422 Conclusion Sinus rhythm...normal P axis, V-rate 60- 99 Nonspecific intraventricular conduction delay...QRSd >115mS, not LBBB/RBBB Consider anteroseptal infarct...Q >30mS, dimin R, V1-V2 Physician: Sinus rhythm, interventricular conduction delay, minimal ST elevation in V1 and V2, invert ed T waves in V4, no STEMI. Unchanged from prior EKG. Negative for SCARBOSSA
--- NOTE | 2022-04-08 04:15 | DI.RAD_ITS ---
Exam(s) XR PORTABLE CHEST AP EXAM: XR PORTABLE CHEST AP CLINICAL HISTORY: central chest pain TECHNIQUE: 2D digital imaging was performed of the chest. One image was obtained. An AP view was ob tained. COMPARISON: No exams were available for comparison FINDINGS: Poor inspiration. MEDIASTINUM: Normal. HEART: Heart size appears at the upper limits of normal which is likely due to the projection and poo r inspiration. PULMONARY VASCULATURE: Normal. LUNGS: Clear. PLEURAL SPACE: No pleural effusion or pneumothorax. BONE:Within normal limits for the patient's age. OTHER FINDINGS:Normal. IMPRESSION: No acute pulmonary findings. DATA REPOSITORY: RADIATION DOSE DELIVERED:
[2022-04-08] MEDS: MORPHine 4 MG/ML SYR IVP (04:28)
[2022-04-08] MEDS: Ondansetron 4 MG/2 ML VIAL IVP (04:30)
[2022-04-08] MEDS: HYDROmorphone 2 MG/ML VIAL 1 MG IVP ×2 (04:33→06:05)
[2022-04-08 04:35] LABS: Abs Immature Grans 0.04 10^3/uL (0.0-0.06); Absolute Basophil Count 0.02 10^3/uL (0.0-0.2); Absolute Eosinophil Count 0.07 10^3/uL (0.0-0.7); Absolute Lymphocyte Count 0.88 10^3/uL (1.2-3.4); Absolute Monocyte Count 0.48 10^3/uL (0.1-0.8); Absolute Neutrophil Count 8.47 10^3/uL (1.2-6.7); Basophils % 0.2; Eosinophils % 0.7; HCT 43.9 % (40.0-50.0); HGB 14.9 g/dL (13.5-17.5); Immature Grans % 0.4; Lymphocytes % 8.8; MCHC 33.9 % (32.0-36.0); MCV 94 fL (80-95); MPV 11.1 fL (8.0-11.0); Monocytes % 4.8; Neutrophils % 85.1; Platelet Count 185 10^3/uL (130-400); RBC 4.65 10^6/uL (4.36-5.78); RDW 12.7 % (11.8-14.1); WBC 9.96 10^3/uL (4.4-10.8)
--- NOTE | 2022-04-08 04:45 | DI.VRAD_ITS ---
PROCEDURE INFORMATION: Exam: XR Chest Exam date and time: 04/08/2022 4:23 AM Age: 72 years old Clinical indication: Pain; Chest pressure TECHNIQUE: Imaging protocol: Radiologic exam of the chest. Views: 1 view. COMPARISON: No relevant prior studies available. FINDINGS: Lungs: Low lung volumes. Chronic interstitial prominence. No consolidation. Pleural spaces: No pleural effusion. No pneumothorax. Heart/Mediastinum: Mildly enlarged which may be related to expiratory technique Bones/joints: Unremarkable. IMPRESSION: No acute findings. Dictated and Authenticated by: Rajinder Mcgraw MD. Ordering:TIANA Snell MD
--- NOTE | 2022-04-08 04:45 | W.ED.GENAD ---
Discharge Plan Disposition Patient Disposition: STILL A PATIENT Condition: Stable Discharge Details Chief Complaint: Chest Pain Clinical Impression: Chest pain Primary Care Provider: Navin Souza ED Provider: Channing Alfaro Home Meds and New Rx's Prescriptions: No Action cyclobenzaprine 10 mg tablet 10 tab PO TID Label Comments: TAKE ONE TABLET BY MOUTH EVERY 8 HOURS NEEDED celecoxib 100 mg capsule 100 mg PO BID Bydureon BCise 2 mg/0.85 mL auto-injector 1 ea SUBCUT QWEEK gabapentin 300 mg capsule 300 mg PO TID Label Comments: TAKE ONE CAPSULE BY MOUTH THREE TIMES A DAY losartan 50 mg Tablet 50 mg PO DAILY rabeprazole 20 mg Tablet,Delayed Release (Dr/Ec) 20 mg PO BID atorvastatin 20 mg Tablet 20 mg PO QHS metoprolol succinate 50 mg Tablet Extended Release 24 Hr 50 mg PO DAILY glimepiride 4 mg Tablet 4 mg PO BID aspirin 81 mg Tablet,Chewable 81 mg PO DAILY canagliflozin 100 mg Tablet 100 mg PO DAILY Medical Decision Making This is a pleasant 72-year-old male with a past medical history of diabetes, hypertension, high cholesterol, with previous NSTEMI in early February, with 2 stents and over 3 angioplasties performed on 02/21/2022, with a reported ejection fraction of 17% at that time, who presents today for evaluation of chest pain. Patient was discharged from [facility] over a month and a half ago, he had done well, he has been on dual antiplatelet therapy. This evening at about 3 AM, roughly 1 hour prior to arrival, the patient developed stabbing chest pain behind his sternum. It woke him out of sleep. He was given nitroglycerin by EMS as well as aspirin 325 but this did not change his symptoms. He was brought to the ER for further management. When the patient had his NSTEMI in February it was without any pain whatsoever. He states that tonight this pain is notably different than what he had been. He denies any shortness of breath or difficulty breathing. He describes the pain as a stabbing-like sensation. He denies any tearing or ripping sensation. He denies any change in medications. He denies any recent trauma. No other complaints at this time. No other modifying factors. Physical exam demonstrates well-appearing male who is in mild distress secondary to chest pain. Vital signs stable. No significant physical exam abnormalities. Limited bedside echo was performed, ejection fraction appears around 20 to 25% at this time. The patient had no improvement with nitroglycerin we will administer morphine at this time. EKG demonstrates an interventricular conduction delay, negative for Martir's's. Inverted T waves in V4, slight ST elevations in V1 and V2 which are consistent with prior EKGs, and are negative for Sgarbossa criteria. Negative for STEMI. We will continue to evaluate for cardiac etiology, will monitor closely and reassess. 7:31 AM Patient's laboratory work-up has returned relatively stable and unremarkable. D-dimer was elevated, CTA was ordered, results are negative for pulmonary embolism or dissection. Electrolytes stable, renal function good. Initial troponin was negative. proBNP is lower than previous encounters, but slightly elevated at 975. Lipase normal. COVID test negative. Pending repeat troponin at this time. On reassessment the patient's pain is more improved now, he is down to a 3 out of 10. 2 hours ago he did trial readministration of nitroglycerin, and this gave no improvement of the patient's symptoms whatsoever. Dilaudid was again given and this did bring the patient's pain down to his current place of 3 out of 10. With the patient's risk factors, recent stenting, and history, I do feel that continued observation for serial troponin as well as potential repeat echo would be beneficial for the patient at this time. Case will be signed out to my colleague Dr. Amparo Samuel follow-up on labs. EKG 4: 15 Sinus rhythm, interventricular conduction delay, minimal ST elevation in V1 and V2, inverted T waves in V4, no STEMI. Unchanged from prior EKG. Negative for SCARBOSSA EKG 7: 32 Sinus rhythm, interventricular conduction delay, unchanged ST components. No ST depression. No STEMI. Inverted T waves that was present in V4 has now resolved. FINDINGS: Lungs: Low lung volumes. Chronic interstitial prominence. No consolidation. Pleural spaces: No pleural effusion. No pneumothorax. Heart/Mediastinum: Mildly enlarged which may be related to expiratory technique Bones/joints: Unremarkable. IMPRESSION: No acute findings. Thank you for allowing us to participate in the care of your patient. Dictated and Authenticated by: Rajinder Mcgraw MD 04/08/2022 4:45 AM Eastern Time ([place] & [place] A FINDINGS: Pulmonary arteries: No evidence of pulmonary embolism. Aorta: Normal thoracic aorta without aneurysm or dissection. Thyroid: Cystic focus in the left thyroid lobe. Lungs: Bibasilar atelectasis. No airspace consolidation or ground-glass opacities. Pleural spaces: No pleural effusion or pneumothorax. Heart: Cardiomegaly. No pericardial effusion. Lymph nodes: Unremarkable. No enlarged lymph nodes. Upper abdomen: Gastric distention. Bones/joints: No acute fracture. Soft tissues: Unremarkable. IMPRESSION: No evidence of pulmonary embolism HPI General Date/Time Provider Initiated Documentation: 04/08/22 04:30. HPI Narrative: This is a pleasant 72-year-old male with a past medical history of diabetes, hypertension, high cholesterol, with previous NSTEMI in early February, with 2 stents and over 3 angioplasties performed on 02/21/2022, with a reported ejection fraction of 17% at that time, who presents today for evaluation of chest pain. Patient was discharged from [facility] over a month and a half ago, he had done well, he has been on dual antiplatelet therapy. This evening at about 3 AM, roughly 1 hour prior to arrival, the patient developed stabbing chest pain behind his sternum. It woke him out of sleep. He was given nitroglycerin by EMS as well as aspirin 325 but this did not change his symptoms. He was brought to the ER for further management. When the patient had his NSTEMI in February it was without any pain whatsoever. He states that tonight this pain is notably different than what he had been. He denies any shortness of breath or difficulty breathing. He describes the pain as a stabbing-like sensation. He denies any tearing or ripping sensation. He denies any change in medications. He denies any recent trauma. No other complaints at this time. No other modifying factors. Related Data Home Medications Medication Instructions Recorded Confirmed aspirin 81 mg chewable tablet 81 mg PO DAILY 03/28/21 04/08/22 atorvastatin 20 mg tablet 20 mg PO QHS 03/28/21 04/08/22 canagliflozin 100 mg tablet 100 mg PO DAILY 03/28/21 04/08/22 glimepiride 4 mg tablet 4 mg PO BID 03/28/21 04/08/22 losartan 50 mg tablet 50 mg PO DAILY 03/28/21 04/08/22 metoprolol succinate 50 mg 50 mg PO DAILY 03/28/21 04/08/22 tablet,extended release 24 hr rabeprazole 20 mg tablet,delayed 20 mg PO BID 03/28/21 02/19/22 release celecoxib 100 mg capsule 100 mg PO BID 02/19/22 04/08/22 cyclobenzaprine 10 mg tablet 10 tab PO TID 02/19/22 04/08/22 exenatide microspheres 2 mg/0.85 1 ea subcut QWEEK 02/19/22 04/08/22 mL subcutaneous auto-injector ([employer]) gabapentin 300 mg capsule 300 mg PO TID 02/19/22 04/08/22 Allergies Allergy/AdvReac Type Severity Reaction Status Date / Time adhesive tape Allergy Verified 04/08/22 04:21 cortisone Allergy Verified 04/08/22 04:21 General Stated Complaint: Chest Pain ANDREA: 3 Review of Systems All systems reviewed & are unremarkable except as noted in HPI and below PFSH All Active Problems (Updated 04/08/22 @ 07:36 by Channing Alfaro DO) Chest pain (Acute) Diabetes mellitus (Chronic) Non-ST elevation UT (NSTEMI) (Acute) ADD (attention deficit disorder) (Acute) Hematuria (Acute) Insomnia (Acute) Neoplasm of unspecified behavior of bone, soft tissue, and skin (Acute) Actinic keratosis (Acute) Acute bursitis of left shoulder (Acute) Medical History GERD (gastroesophageal reflux disease) Hypercholesterolemia Hypertension Surgical History H/O esophagogastroduodenoscopy S/P lumbar spine operation (~10/2021) [facility] Dr. Antonio; L2-L3 S/P TKR (total knee replacement) (~10/2020) s/p bilateral TKA; Left 09/04, Right 11/06 S/P tonsillectomy Social History Smoking/Tobacco Use Status: Former Tobacco Use Smoking risk assessment performed?: Yes Alcohol Intake: current Alcohol Intake frequency: 0-2 drinks per day Alcohol type: beer Drug use: Never Substance use type: does not use Current gender identity: male Do you feel safe at home: Yes Do you feel safe in your relationship?: Yes Exam Narrative Exam Narrative: 1.Const: Well-nourished, Well-developed, appearing stated age 2.Eyes: PERRL, no conjunctival injection, and symmetrical lids. 3.ENT: Atraumatic external nose and ears. Moist MM. Neck: Symmetric, trachea midline, No thyromegaly. 4.CVS: +S1/S2, No murmurs or gallops. Peripheral pulses 2+ and equal in all extremities. Brisk capillary refill in all extremities. 5.RESP: Unlabored respiratory effort. Clear to auscultation bilaterally. No wheezes rales or rhonchi 6.GI: Soft, Nontender/Nondistended, No hepatosplenomegaly. No guarding or rebound. 7.MSK: Normocephalic/Atraumatic, Extremities w/o deformity or ttp No cyanosis or clubbing, Normal movement of all extremities 8.Skin: Warm, Dry. No rashes or lesions. 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 Sensation grossly intact, no focal neurologic deficits. 10.Psych: (AAO) x3. Appropriate mood and affect Course Vital Signs Vital signs: Vital Signs Temperature 36.9 C 04/08/22 04:17 Pulse 63 04/08/22 04:17 Respiratory Rate 20 04/08/22 04:17 Blood Pressure 110/66 04/08/22 04:17 Pulse Oximetry 94 04/08/22 04:17 Temperature 36.9 C 04/08/22 04:17 Temperature Source Oral 04/08/22 04:17 Pulse 63 04/08/22 04:17 Respiratory Rate 12 04/08/22 04:40 Respiratory Effort 04/08/22 04:40 Respiratory Depth Normal 04/08/22 04:40 Respiratory Pattern Normal 04/08/22 04:40 Blood Pressure 110/66 04/08/22 04:17 Blood Pressure Position Supine 04/08/22 04:17 Pulse Oximetry 94 04/08/22 04:17 Oxygen Delivery Method Room Air 04/08/22 04:17 Oxygen Flow Rate 0 04/08/22 04:17 Pain Level 10 04/08/22 04:17 Lab/Test Results Lab/Test Results: Laboratory Tests Range/Units 04/08/22 04:20 WBC (4.4-10.8) 10^3/uL 9.96 RBC (4.36-5.78) 10^6/uL 4.65 Hgb (13.5-17.5) g/dL 14.9 Hct (40.0-50.0) % 43.9 MCV (80-95) fL 94 MCH (27.0-33.0) pg 32.0 MCHC (32.0-36.0) % 33.9 RDW (11.8-14.1) % 12.7 Plt Count (130-400) 10^3/uL 185 MPV (8.0-11.0) fL 11.1 H Immature Gran % 0.4 Neutrophils % 85.1 Lymphocytes % 8.8 Monocytes % 4.8 Eosinophils % 0.7 Basophils % 0.2 Nucleated RBC % (0.0-0.3) % 0.0 Absolute Neutrophils (1.2-6.7) 10^3/uL 8.47 H Absolute Lymphocytes (1.2-3.4) 10^3/uL 0.88 L Absolute Monocytes (0.1-0.8) 10^3/uL 0.48 Absolute Eosinophils (0.0-0.7) 10^3/uL 0.07 Absolute Basophils (0.0-0.2) 10^3/uL 0.02
[2022-04-08 04:46] LABS: INR 0.9 (0.9-1.1); Prothrombin Time 9.5 sec (9.3-11.0)
[2022-04-08 04:47] LABS: Source Nasal/Nares
[2022-04-08 04:48] LABS: PTT Activated 24.3 sec (21.0-27.5)
[2022-04-08 04:56] LABS: ALT 25 U/L (16-63); AST 13 U/L (15-37); Albumin 3.7 g/dL (3.4-5.0); Alkaline Phosphatase 66 U/L (46-116); Anion Gap 11.1 mmol/L (3-11); BUN 18 mg/dL (7-18); Bilirubin, Total 0.5 mg/dL (0.2-1.0); CO2 25.9 mmol/L (21.0-32.0); Calcium 8.5 mg/dL (8.5-10.1); Chloride 104 mmol/L (98-107); Glucose 288 mg/dL (74-106); Lipase 52 U/L (73-393); NT-proBNP 975 pg/mL (<300); Potassium 4.4 mmol/L (3.5-5.1); Sodium 141 mmol/L (136-145); Total Protein 6.6 g/dL (6.4-8.2); Troponin I < 50 ng/L (<or=60)
--- NOTE | 2022-04-08 05:00 | DI.CT_ITS ---
Exam(s) CT CHEST PE CTA EXAM: CT CHEST PE CTA CLINICAL HISTORY: elevated dimer, chest pain, recent stenting. TECHNIQUE: Imaging Protocol: Axial CT angiography was performed with multi-slice acquisition and mu lti-planar and/or 3D reconstructions. CONTRAST MATERIAL: Intravenous: Omnipaque 350 contrast volume:100 mL COMPARISON: CR,XR XR PORTABLE CHEST AP from 04/08/2022 FINDINGS: The examination is limited due to patient motion artifact. Tracheobronchial tree: Patent where visualized. Pulmonary parenchyma: No consolidation or dominant measurable mass. No architectural distortion. Ther e is dependent atelectasis. Pulmonary Arteries: No evidence of filling defect to suggest pulmonary emboli. Mediastinum and [place]: No dominant adenopathy or fluid collection. The esophagus is unremarkable. Visualized thyroid gland: There is a 1.6 cm hypodense nodule in the left lobe of the thyroid gland. A nonemergent thyroid ultrasound is recommended for further evaluation. Pleura: No effusion or pneumothorax. Heart: Mild cardiomegaly. Coronary artery calcification and or under stents are present. No pericar dial effusion. Aorta: Thoracic aorta non-dilated. No evidence of dissection. Atherosclerosis is present. Upper abdomen: Unremarkable. Soft tissues: Unremarkable. Bones: Within normal limits for the patient's age. IMPRESSION: No evidence of pulmonary embolism, thoracic aortic dissection or aneurysm. Incidental Findings RADIATION DOSE DELIVERED: 484.38mGy.cm Total DLP DATA REPOSITORY: All CT scans at this facility are submitted to the National Radiology Data Registry (NRDR) Dose Index Registry (DIR) with the [employer] (ACR). RADIATION OPTIMIZATION: All CT scans at this facility use at least one of these dose optimization te chniques: automated exposure control; mA and/or kV adjustment per patient size (includes targeted exa ms where dose is matched to clinical indication); or iterative reconstruction.
[2022-04-08 05:10] LABS: D-Dimer 812 ng/mlFEU (<500)
[2022-04-08 05:36] LABS: COVID-19 PCR Negative (Negative)
[2022-04-08] MEDS: Omnipaque 350 MG/ML 100 ML BTL IJ ×2 (05:45→21:46)
[2022-04-08] MEDS: Normal Saline Flush 10 ML SYR IVP ×6 (05:47→22:12)
[2022-04-08] MEDS: nitroGLYcerin 0.4 MG TAB SL (05:51)
--- NOTE | 2022-04-08 06:16 | DI.VRAD_ITS ---
PROCEDURE INFORMATION: Exam: CTA Chest With Contrast Exam date and time: 04/08/2022 5:23 AM Age: 72 years old Clinical indication: Other: Chest pain, elevated d dimer, recent stenting; Patient HX: Stents TECHNIQUE: Imaging protocol: Computed tomographic angiography of the chest with contrast. 3D rendering (Not supervised by radiologist): MIP and/or 3D reconstructed images were created by the technologist. Contrast material: OMNIPAQUE 350; Contrast volume: 100 ml; Contrast route: INTRAVENOUS (IV); COMPARISON: XR PORTABLE CHEST AP 04/08/2022 4:23 AM FINDINGS: Pulmonary arteries: No evidence of pulmonary embolism. Aorta: Normal thoracic aorta without aneurysm or dissection. Thyroid: Cystic focus in the left thyroid lobe. Lungs: Bibasilar atelectasis. No airspace consolidation or ground-glass opacities. Pleural spaces: No pleural effusion or pneumothorax. Heart: Cardiomegaly. No pericardial effusion. Lymph nodes: Unremarkable. No enlarged lymph nodes. Upper abdomen: Gastric distention. Bones/joints: No acute fracture. Soft tissues: Unremarkable. IMPRESSION: No evidence of pulmonary embolism. Dictated and Authenticated by: Manny Turner MD. Ordering:TIANA Snell MD
--- NOTE | 2022-04-08 07:15 | RT.EKG_ITS ---
APPROVED REPORT Exam: Resting ECG Reason for Exam: chest pain Patient Location: E HR:77 bpm ECG Measurements Heart Rate 77 AXIS LA 188 P 53 QRSd 119 QRS 51 QT 389 T 72 QTc 439 Conclusion Sinus rhythm...normal P axis, V-rate 60- 99 Nonspecific intraventricular conduction delay...QRSd >115mS, not LBBB/RBBB Probable anteroseptal infarct, recent...Q, ST>0.15mV, T neg, V1-V2 Physician: Sinus rhythm, interventricular conduction delay, unchanged ST components. No ST depressio n. No STEMI. Inverted T waves that was present in V4 has now resolved.
[2022-04-08 07:47] LABS: Troponin I < 50 ng/L (<or=60)
--- NOTE | 2022-04-08 08:58 | W.EDPROG ---
Date of service: 04/08/22 Time of Service: 08:59 Medical Decision Making Resting more comfortably chest pain is resolved. Patient is slightly dyspneic is on nasal cannula 2 to 3 L saturating around 95 to 96%. CT chest negative for PE. Troponin negative. Patient is moderate risk heart score given initial symptomatology and persistent mild dyspnea observation admission for serial troponin and possible echocardiogram we will start light diuresis. Sign Out Sign Out Data: Sign Out Comment: High risk chest pain, pending repeat troponin. Recommend admission/observation. Last updated by Channing Alfaro DO at 04/08/22 07:37 Discharge Plan Disposition Patient Disposition: [facility] INPATIENT Condition: Stable Discharge Details Clinical Impression: Chest pain Primary Care Provider: Navin Souza ED Provider: Channing Alfaro Home Meds and New Rx's Prescriptions: No Action cyclobenzaprine 10 mg tablet 10 tab PO TID Label Comments: TAKE ONE TABLET BY MOUTH EVERY 8 HOURS NEEDED celecoxib 100 mg capsule 100 mg PO BID Bydureon BCise 2 mg/0.85 mL auto-injector 1 ea SUBCUT QWEEK gabapentin 300 mg capsule 300 mg PO TID Label Comments: TAKE ONE CAPSULE BY MOUTH THREE TIMES A DAY losartan 50 mg Tablet 50 mg PO DAILY rabeprazole 20 mg Tablet,Delayed Release (Dr/Ec) 20 mg PO BID atorvastatin 20 mg Tablet 20 mg PO QHS metoprolol succinate 50 mg Tablet Extended Release 24 Hr 50 mg PO DAILY glimepiride 4 mg Tablet 4 mg PO BID aspirin 81 mg Tablet,Chewable 81 mg PO DAILY canagliflozin 100 mg Tablet 100 mg PO DAILY
[2022-04-08] MEDS: Furosemide 20 MG/2 ML VIAL IVP (09:08)
--- NOTE | 2022-04-08 09:14 | HPE_ITS ---
Date of service: 04/08/22 Time of Service: 09:14 Assessment and Plan Assessment and plan (1) Acute on chronic heart failure with reduced ejection fraction and diastolic dysfunction: Status: Acute Assessment and plan: IV diuretics, continue his SGLT2 inhibitor, continue spironolactone, consider changing his losartan to Entresto, consult cardiology for follow-up and continuity of care and further recommendations, check follow-up echocardiogram Professional time spent interviewing and examining patient, discussion of goals of care with hospital team (care management, nursing and consulting shira watt) was 60 minutes. (2) Ischemic cardiomyopathy: Status: Acute Assessment and plan: As above. Patient is premature on goal-directed therapy with Jardiance diuretics and losartan and beta-blockers. Consider switching his losartan to Entresto. (3) Chest pain: Status: Acute Assessment and plan: Atypical chest pain and it was sharp stabbing unrelieved by nitroglycerin and not associated with any acute EKG changes and with negative troponins and negative CTA of his chest. Probable musculoskeletal although patient does have history of known GERD for which he takes a PPI Will treat musculoskeletal pain with narcotic analgesics continue to trend out troponins check a follow-up echocardiogram in the morning and request cardiology consultation. (4) Coronary atherosclerosis of wiyot coronary artery: Status: Acute Assessment and plan: patient is s/p PCI about 6 weeks ago (02/21/2022) at [facility], he reportedly had 2 stents and and multiple angioplasties. His home med list includes ASA but not Plavix which I am certain he must be on. I have asked our pharmacist to reconcile his med list w/ [place] [facility] [place]. So far his CP has not been relieved by NTG but did improve w/ narcotic analgesics (dilaudid). His pain seem atypical for ischemic pain (non-exertional, awoke from sleep and not relieved by NTG; although his NSTEMI on 02/19/22 also occurred while he was asleep). We will trend one more troponin and if the third set is negative, not check any further. I will ask cardiology to see him for his CHF as he will need follow up anyway w/ Dr. Cristina. He needs to be on DAPT for a year. I will try to optimize his goal directed CHF therapy. (5) Diabetes mellitus: Status: Chronic Assessment and plan: Hold glipizide and treat with bolus insulin occluding meal coverage and sliding scale NovoLog. Last A1c was 7% 6 weeks ago. History of Present Illness History of Present Illness Chief Complaint: chest pain Narrative: 72-year-old male with a history of diabetes mellitus type 2 treated with by durian and glimepiride, last A1c was 7%, hypertension, hypercholesterolemia treated with atorvastatin, coronary artery disease was previously NSTEMI in February 19, 2022 for which she was sent to [facility] where he went for coronary catheterization and had 2 stents and 3 angioplasties performed on 02/21/2022. He has an ischemic cardiomyopathy with reported ejection fraction of 17% at that time. He now presents with new onset chest pain that woke him around 3 AM described as stabbing behind his sternum. He was given nitroglycerin by EMS as well as aspirin 325 mg with no change of symptoms. He was brought to the emergency department where he subsequently had serial EKGs and serial troponin levels. He has a left bundle branch block which is unchanged. Rhythm is sinus rhythm. He did not meet Sgarbossa criteria for an acute PR. He has had 2 troponin I levels 3 hours apart that were normal. Pain finally was relieved with intravenous Dilaudid. Subsequent work-up included CT scan of his chest for PE protocol which did not show any pulmonary emboli and no dissecting aneurysm. No pleural effusions and no airspace consolidation Limited bedside echo was performed by Dr. Alfaro which indicated a low ejection fraction of 20 to 25%. Patient was subsequently signed out to Dr. Amparo Samuel who found that the patient's chest pain had resolved was resting comfortably but appeared to be mildly dyspneic and requiring oxygen at 2 L/min to keep his saturation at 95 to 96%. Of note when the patient presented to the hospital he was on room air and his SPO2 was low at 86 to 87%. But came up into the mid to high 90s with [address] Amparo Samuel indicated he is giving the patient Lasix 20 mg IV and the patient will be admitted on observation for treatment of CHF.. PFSH All Active Problems (Updated 04/08/22 @ 09:29 by Luis Purcell MD) Coronary atherosclerosis of wiyot coronary artery (Acute) Acute on chronic heart failure with reduced ejection fraction and diastolic dysfunction (Acute) Ischemic cardiomyopathy (Acute) Chest pain (Acute) Diabetes mellitus (Chronic) ADD (attention deficit disorder) (Acute) Hematuria (Acute) Insomnia (Acute) Actinic keratosis (Acute) Medical History (Updated 04/08/22 @ 09:29 by Luis Purcell MD) Acute bursitis of left shoulder GERD (gastroesophageal reflux disease) Hypercholesterolemia Hypertension Neoplasm of unspecified behavior of bone, soft tissue, and skin Surgical History H/O esophagogastroduodenoscopy S/P lumbar spine operation (~10/2021) [facility] Dr. Antonio; L2-L3 S/P TKR (total knee replacement) (~10/2020) s/p bilateral TKA; Left 09/04, Right 11/06 S/P tonsillectomy Social History Smoking/Tobacco Use Status: Former Tobacco Use Smoking risk assessment performed?: Yes Alcohol Intake: current Alcohol Intake frequency: 0-2 drinks per day Alcohol type: beer Drug use: Never Substance use type: does not use Current gender identity: male Do you feel safe at home: Yes Do you feel safe in your relationship?: Yes Meds Allergies and Home Medications Allergies Allergy/AdvReac Type Severity Reaction Status Date / Time adhesive tape Allergy Verified 04/08/22 04:21 cortisone Allergy Verified 04/08/22 04:21 Home Medications Medication Instructions Recorded Confirmed Type aspirin 81 mg chewable tablet 81 mg PO DAILY 03/28/21 04/08/22 History cyclobenzaprine 10 mg tablet 10 tab PO TID PRN PRN 02/19/22 04/08/22 History gabapentin 300 mg capsule 300 mg PO TID 02/19/22 04/08/22 History atorvastatin 80 mg tablet 80 mg PO QPM 04/08/22 04/08/22 History clopidogrel 75 mg tablet (Plavix) 75 mg PO DAILY 04/08/22 04/08/22 History empagliflozin 10 mg tablet 10 mg PO DAILY 04/08/22 04/08/22 History (Jardiance) escitalopram oxalate 10 mg tablet 10 mg PO DAILY 04/08/22 04/08/22 History exenatide microspheres 2 mg/0.65 mg subcut 04/08/22 History mL subcutaneous pen injector (Bydureon) furosemide 20 mg tablet (Lasix) 20 mg PO DAILY 04/08/22 04/08/22 History glimepiride 4 mg tablet (Amaryl) 4 mg PO BID 04/08/22 04/08/22 History lorazepam 1 mg tablet 1 mg PO BID PRN 04/08/22 04/08/22 History losartan 50 mg tablet 50 mg PO DAILY 04/08/22 04/08/22 History metoprolol succinate 50 mg 50 mg PO DAILY 04/08/22 04/08/22 History tablet,extended release 24 hr (Toprol XL) nitroglycerin 0.4 mg sublingual 0.4 mg sublingual Q5M PRN 04/08/22 04/08/22 History tablet rabeprazole 20 mg tablet,delayed 20 mg PO DAILY 04/08/22 04/08/22 History release (AcipHex) spironolactone 25 mg tablet 12.5 mg PO DAILY 04/08/22 04/08/22 History Exam Narrative Exam Narrative: He is alert and oriented per his place time circumstance. HEENT is unremarkable Neck is supple nontender no JVD normal carotid pulses no thyromegaly no lymphadenopathy Lungs with bibasilar rales no rhonchi or wheezing no dullness to percussion Heart is regular no appreciable murmur rub or gallop no palpable thrill or heave Abdomen soft nontender nondistended Chest wall tender over the right sternal costal junction Extremities without peripheral cyanosis or edema. 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 Results Imaging Chest x-ray: report reviewed CT scan - chest: report reviewed (IMPRESSION: No evidence of pulmonary embolism, thoracic aortic dissection or aneurysm) Labs Result diagrams: 04/08/22 04:20 04/08/22 04:20 Labs: Laboratory Results - last 24 hr 04/08/22 04/08/22 04/08/22 04:20 04:20 04:20 WBC 9.96 RBC 4.65 Hgb 14.9 Hct 43.9 MCV 94 MCH 32.0 MCHC 33.9 RDW 12.7 Plt Count 185 MPV 11.1 H Immature Gran % 0.4 Neutrophils % 85.1 Lymphocytes % 8.8 Monocytes % 4.8 Eosinophils % 0.7 Basophils % 0.2 Nucleated RBC % 0.0 Absolute Neutrophils 8.47 H Absolute Lymphocytes 0.88 L Absolute Monocytes 0.48 Absolute Eosinophils 0.07 Absolute Basophils 0.02 PT 9.5 INR 0.9 APTT D-Dimer 812 H Sodium 141 Potassium 4.4 Chloride 104 Carbon Dioxide 25.9 Anion Gap 11.1 H BUN 18 Creatinine 1.0 Estimated GFR/1.73 m2 >= 60.00 Glucose 288 H Calcium 8.5 Total Bilirubin 0.5 AST 13 L ALT 25 Alkaline Phosphatase 66 Troponin I < 50 NT-Pro-B Natriuret Pep 975 H Total Protein 6.6 Albumin 3.7 Lipase 52 COVID-19 Source SARS-CoV-2 (PCR) 04/08/22 04/08/22 04/08/22 04:20 04:45 07:25 WBC RBC Hgb Hct MCV MCH MCHC RDW Plt Count MPV Immature Gran % Neutrophils % Lymphocytes % Monocytes % Eosinophils % Basophils % Nucleated RBC % Absolute Neutrophils Absolute Lymphocytes Absolute Monocytes Absolute Eosinophils Absolute Basophils PT INR APTT 24.3 D-Dimer Sodium Potassium Chloride Carbon Dioxide Anion Gap BUN Creatinine Estimated GFR/1.73 m2 Glucose Calcium Total Bilirubin AST ALT Alkaline Phosphatase Troponin I < 50 NT-Pro-B Natriuret Pep Total Protein Albumin Lipase COVID-19 Source Nasal/Nares SARS-CoV-2 (PCR) Negative Last Vital Signs Temp 36.9 C 04/08/22 04:17 Pulse 87 04/08/22 09:00 Resp 23 04/08/22 09:01 BP 147/70 H 04/08/22 09:00 Pulse Ox 96 04/08/22 09:01
--- NOTE | 2022-04-08 10:00 | RT.EKG_ITS ---
APPROVED REPORT Exam: Resting ECG Reason for Exam: Tachy, chest pain Patient Location: E HR:109 bpm ECG Measurements Heart Rate 109 AXIS NE 184 P 47 QRSd 115 QRS 44 QT 332 T 102 QTc 447 Conclusion Sinus tachycardia...rate> 99 Atrial premature complex...SV complex w/ short R-R interval Nonspecific intraventricular conduction delay...QRSd >115mS, not LBBB/RBBB Anteroseptal infarct, possibly acute...Q>35mS, ST>0.15mV, V1-V2 sinus tachycardia, normal axis, LBBB, t wave inversions and slight depressions V5 V6
[2022-04-08] MEDS: LORazepam 20 MG/10 ML VIAL IVP (10:11)
[2022-04-08] MEDS: Aspirin 81 MG CHEW PO (11:31)
[2022-04-08] MEDS: Spironolactone 25 MG TAB 12.5 MG PO (11:32)
[2022-04-08] MEDS: Empaglifozin 10 MG TAB PO (11:32)
[2022-04-08] MEDS: Metoprolol CR 50 MG TABCR PO (11:32)
[2022-04-08] MEDS: Escitalopram 10 MG TAB PO (11:32)
[2022-04-08] MEDS: Clopidogrel 75 MG TAB PO (11:32)
[2022-04-08] MEDS: Losartan 50 MG TAB PO (11:32)
[2022-04-08] MEDS: Enoxaparin 40 MG/0.4 ML SYR SC (11:33)
[2022-04-08] MEDS: Gabapentin 300 MG CAP PO ×3 (11:33→20:31)
[2022-04-08] MEDS: Insulin Aspart 300 UNITS/3 ML PEN SC ×5 (12:26→21:58)
[2022-04-08 16:15] LABS: Troponin I < 50 ng/L (<or=60)
--- NOTE | 2022-04-08 16:30 | RT.EKG_ITS ---
APPROVED REPORT Exam: Resting ECG Reason for Exam: Sternal Chest Pain Patient Location: I HR:101 bpm ECG Measurements Heart Rate 101 AXIS AR 177 P 6 QRSd 115 QRS 41 QT 329 T 107 QTc 427 Conclusion Sinus tachycardia...rate> 99 Nonspecific intraventricular conduction delay...QRSd >115mS, not LBBB/RBBB Probable anteroseptal infarct, recent...Q, ST>0.15mV, T neg, V1-V2
[2022-04-08] MEDS: Furosemide 40 MG/4 ML VIAL IVP (16:45)
[2022-04-08] MEDS: Acetaminophen 325 MG TAB PO ×2 (16:45→20:31)
[2022-04-08] MEDS: MORPHine 2 MG/ML SYR IVP (17:05)
[2022-04-08 21:01] LABS: Abs Immature Grans 0.08 10^3/uL (0.0-0.06); Absolute Lymphocyte Count 0.65 10^3/uL (1.2-3.4); Absolute Monocyte Count 0.69 10^3/uL (0.1-0.8); Basophils % 0.3; HCT 46.7 % (40.0-50.0); HGB 16.2 g/dL (13.5-17.5); Immature Grans % 0.5; Lymphocytes % 4.3; MCH 32.3 pg (27.0-33.0); MCHC 34.7 % (32.0-36.0); MCV 93 fL (80-95); MPV 11.2 fL (8.0-11.0); Monocytes % 4.6; Neutrophils % 90.3; Platelet Count 159 10^3/uL (130-400); RBC 5.02 10^6/uL (4.36-5.78); RDW-SD 44.1 fL; WBC 15.06 10^3/uL (4.4-10.8)
[2022-04-08 21:03] LABS: Absolute Basophil Count 0.05 10^3/uL (0.0-0.2)
[2022-04-08 21:15] LABS: C-Reactive Protein 15.68 mg/dL (0.0-0.3)
[2022-04-08 21:19] LABS: ALT 22 U/L (16-63); AST 12 U/L (15-37); Albumin 3.7 g/dL (3.4-5.0); Alkaline Phosphatase 66 U/L (46-116); Anion Gap 10.2 mmol/L (3-11); BUN 20 mg/dL (7-18); Bilirubin, Total 1.1 mg/dL (0.2-1.0); CO2 26.8 mmol/L (21.0-32.0); CREATININE 1.2 mg/dL (0.70-1.30); Calcium 8.9 mg/dL (8.5-10.1); Chloride 100 mmol/L (98-107); Estimated GFR 59.86 (mL/min/1.73m2); Glucose 154 mg/dL (74-106); Potassium 4.3 mmol/L (3.5-5.1); Sodium 137 mmol/L (136-145); Total Protein 7.1 g/dL (6.4-8.2)
[2022-04-08 21:35] LABS: Procalcitonin 11.2 ng/mL
[2022-04-08] MEDS: Famotidine 20 MG TAB PO (21:56)
[2022-04-08] MEDS: Melatonin 3 MG TAB 6 MG PO (21:56)
[2022-04-08] MEDS: Atorvastatin 40 MG TAB 80 MG PO (21:57)
[2022-04-08] MEDS: PIPERACILLIN/TAZO 4.5 GM in Normal Saline 100 ML IVPB (22:12)
--- NOTE | 2022-04-08 22:17 | DI.VRAD_ITS ---
PROCEDURE INFORMATION: Exam: CT Abdomen And Pelvis With Contrast Exam date and time: 04/08/2022 9:28 PM Age: 72 years old Clinical indication: Abdominal pain; Localized; Right upper quadrant (ruq); Additional info: Ruq pain TECHNIQUE: Imaging protocol: Computed tomography of the abdomen and pelvis with contrast. Radiation optimization: All CT scans at this facility use at least one of these dose optimization techniques: automated exposure control; mA and/or kV adjustment per patient size (includes targeted exams where dose is matched to clinical indication); or iterative reconstruction. Contrast material: OMNI 350; Contrast volume: 100 ml; Contrast route: INTRAVENOUS (IV); COMPARISON: 1. CR XR HIP PELVIS ADULT BL 09/06/2021 8:[address] CHEST PE CTA 04/08/2022 5:23 AM FINDINGS: Lungs: Moderate bands of atelectasis are noted in both lung bases, new from the earlier exam. Heart: No cardiomegaly. Coronary artery stents and calcifications noted. Liver: Mild fatty infiltration of the liver. No focal lesion. Gallbladder and bile ducts: Moderate fat stranding and mild fluid are noted around the gallbladder. The gallbladder is distended. There are no calcified stones. The bile ducts are not dilated. Pancreas: Unremarkable pancreatic parenchyma. No inflammatory change or fluid collection. Pancreatic duct is not dilated. Spleen: Normal. No splenomegaly. Adrenal glands: Normal. No mass. Kidneys and ureters: Kidneys kidneys enhance symmetrically. Stomach and bowel: Moderately distended stomach. Unremarkable duodenum and proximal jejunum. Mildly distended loops of small bowel are noted in the right lower quadrant, up to 3.2 cm. There are no inflammatory changes at the terminal ileum. Moderate proximal stool noted in the colon. Negative for inflammatory changes around the colon. Diverticula are observed in the descending and sigmoid colon. Appendix: Normal appendix. Intraperitoneal space: Unremarkable. No free air. No significant fluid collection. Vasculature: Mild vascular calcifications. No aneurysm. Lymph nodes: Unremarkable. No enlarged lymph nodes. Urinary bladder: Unremarkable as visualized. Reproductive: Unremarkable as visualized. Bones/joints: Severe disc space narrowing observed at L2-L3. Multiple endplate erosions and moderate endplate sclerosis are noted. Retrolisthesis L2 on L3 measures 9 mm. The facet joint the right L2-L3 level is hypoplastic or previously resected. Large Schmorl's node is noted at the L4 inferior endplate. Anterolisthesis L4 on L5 measures 5 mm. Severe facet arthropathy noted L4-L5 bilaterally. Moderate disc space narrowing and disc bulge also noted at L5-S1. Soft tissues: Foci of air are noted in the subcutaneous abdominal wall on the left lower quadrant. Question medication administration sites. No fluid collections or hernia is observed. IMPRESSION: 1. CT findings of acute cholecystitis. Ultrasound could be pursued if clinically indicated for further diagnostic confidence, however the gallbladder is grossly abnormal on CT. 2. Multilevel degenerative disc disease and facet arthropathy. 3. Findings of the L2-L3 raise concern for discitis-osteomyelitis. Postoperative changes noted with a right L2 laminotomy. No paraspinal abscess observed on CT. Correlate with previous spine imaging if available. Consider MR lumbar spine with and without contrast. Dictated and Authenticated by: Srinath Carvajal MD. Ordering:ADAM Smith MD
[2022-04-08] MEDS: Metoprolol 5 MG/5 ML VIAL 2.5 MG IVP (22:56)
[2022-04-08] MEDS: Lactated Ringers 1,000 ML 85 ML IV (23:02)
--- NOTE | 2022-04-08 23:17 | W.EVENT ---
Date of service: 04/08/22 Time of Service: 20:00 Event Note: Patient seen for right upper quadrant abdominal pain associated with a fever 38.6. Bedside [id number] ultrasound of his gallbladder shows a dilated gallbladder but no gallstones. He has pericholecystic fluid and thickened gallbladder wall consistent with acute cholecystitis. He had a positive Kern sign. Laboratory work including blood cultures and CBC and CMP along with a procalcitonin level and CRP. WBCs are elevated at 15,000 whereas they have been normal earlier today. CMP showed minimally elevated total bilirubin of 1.1 but normal transaminases and normal alkaline phosphatase. CRP is elevated 15.6. Procalcitonin level was elevated at 11.2. CT scan with IV contrast was performed and is being read by the radiologist as showing findings of acute cholecystitis with moderate fat stranding and mild fluid around the gallbladder and a distended gallbladder but without calcified stones. Bile duct was not dilated. Incidental finding clued multilevel degenerative disc disease and facet arthropathy and abnormalities at L2-L3 raising concern for discitis or osteomyelitis. Specifically at L2-L3 there is severe disc space narrowing and multiple endplate erosions and moderate endplate sclerosis. We After blood cultures were obtained patient was started on Zosyn 4.5 g. I discussed the case with Dr. Freida Brunson from general surgery. She indicated that given his recent coronary stenting just a few weeks ago she doubted that her anesthesia team would be willing to undertake perform his surgery here at [facility] but indicates she would discuss the case with anesthesia in the morning. She suggested that I called [facility] and discussed the case with them and see if they would take him in transfer. I called the transfer center at [facility] and spoke with a Dr. Campoverde from general surgery. Dr. Campoverde reviewed the patient's CT findings and agree that the patient had evidence of the acute cholecystitis but did not see gallstones on the CT scan. He recommended follow-up ultrasound of the abdomen in the morning but indicated that he would accept the patient as a direct admission to the surgical floor at [facility] upon bed availability. Transfer center indicated that they would call our facility once their facility had a bed for the patient. Time Spent with Patient Time spent in critical care(minutes): 60 Time Spent Included: Chart review, Documenting critically ill care, Time at immediate bedside and Other (Performing [id number] ultrasound)
--- NOTE | 2022-04-08 23:56 | W.PM.DS.N ---
DS: Diagnosis Discharge Diagnosis (1) Acute cholecystitis: Status: Acute Asessment and Plan: see below under chest pain assessment and plan. patient was started on Zosyn 4.5 gm after obtaining blood cultures and he was referred to [facility] general surgery. (2) Chest pain: Status: Acute Asessment and Plan: atypical chest pain. serial EKG's did not show any ischemic/injury pattern. troponin I levels were normal @ < 50 ng/L x 3 sets. SSCP later localized to his RUQ and he developed temp of 38.6 along w/ incr. inflammatory markers (WBC wei from 9900 to 15,000 over the course of 14hr, procalcitonin of 11.2 and CRP of 15.6 occurred on the evening of 04/08/22). POCUS exam of abdomen demonstrated dilated GB and thickening of GB wall w/out stones butr some pericholecystic fluid. CT abdomen and pelvis confirmed findings c/w acute cholecystitis. Patient referred to [facility] surgeon, Dr. Nam Campoverde. (3) Acute on chronic heart failure with reduced ejection fraction and diastolic dysfunction: Status: Acute Asessment and Plan: mild CHF on admission w/ pro-BNP of 975 pg/mL (much below prior level of 4592 when he had his AZ on 02/19/22). CXR and chest CT were unremarkable for any pleural effusions or any pulmonary edema. Point of care US of lungs demonstrated bibasilar B lines. He was treated w/ some IV lasix on admission. (4) Ischemic cardiomyopathy: Status: Acute Asessment and Plan: no ischemic ST-T changes or troponin changes occurred w/ this admission. (5) Coronary atherosclerosis of [place] coronary artery: Status: Acute (6) Diabetes mellitus: Status: Chronic Discharge Plan Disposition Patient Disposition: [facility] Condition: Stable Discharge Details Reason For Visit: dyspnea, chest pain Admit Date/Time: 04/08/22 08:55 Admit Provider: Luis Purcell Attending Provider: uLis Purcell Primary Care Provider: Navin Souza Hospital Course Hospital Course: 72-year-old type II diabetic with history of coronary artery disease who had an NSTEMI in early February of this year and underwent multiple coronary stents at [facility] and is currently on dual antiplatelet therapy with Plavix and aspirin presented to [facility] earlier this morning with atypical sharp stabbing substernal chest pain which subsequently has moved in the right upper quadrant and is now associated with fevers of 38.6. Initially his labs did not show leukocytosis he had normal CBC and CMP and he has had normal troponin levels. Today's white cell count is up to 15,000, procalcitonin level is elevated 11.2, CRP is elevated at 15.6. Repeat CMP shows minimally elevated total bilirubin of 1.1 with normal AST, ALT and normal alkaline phosphatase. CT of his chest was performed on admission and showed no pulmonary emboli and no dissecting aortic aneurysm. Tonight with a fever and repeat labs he had a CT scan of his abdomen pelvis with IV contrast which shows a dilated gallbladder with gallbladder wall thickening and pericholecystic fluid and fat stranding but no gallstones. [id number] ultrasound performed prior to the CT scan showed similar findings of gallbladder wall thickening and pericholecystic fluid and a positive Kern sign but no gallstones. Blood cultures been obtained and patient has been started on IV Zosyn and has been medicated with morphine for his pain. Our local surgeon was consulted by telephone, Dr. Freida Brunson, who indicated that our nurse drill press operator helper would not be comfortable performing surgery on this patient given his recent coronary stents and need for dual antiplatelet therapy. She suggested that I reach out to [facility] and discussed the case with their surgical team. I did call [facility] transfer center and they put me through to Dr. Nam Campoverde, who reviewed the patient's CT scan and agreed that he has evidence of acute cholecystitis but no CT evidence for gall stones. He indicated that he would accept the patient on a direct transfer and would consult w/ cardiology on how best to handle his DAPT in light of recent coronary stents and now having acute cholecystitis. Hopefully the patient's acute chlecystitis can be calmed down w/ parenteral antibiotics. Zosyn 4.5 grams was started this evening. Patient is hemodynamically stable for transfer to [facility]. Home Meds and New Rx's Prescriptions: No Action cyclobenzaprine 10 mg tablet 10 tab PO TID PRN PRN Label Comments: TAKE ONE TABLET BY MOUTH EVERY 8 HOURS NEEDED gabapentin 300 mg capsule 300 mg PO TID Label Comments: TAKE ONE CAPSULE BY MOUTH THREE TIMES A DAY atorvastatin 80 mg Tablet 80 mg PO QPM clopidogrel [Plavix] 75 mg Tablet 75 mg PO DAILY nitroglycerin 0.4 mg Tablet, Sublingual 0.4 mg SUBLINGUAL Q5M PRN Rx Instructions: do not exceed 3 doses per episode furosemide [Lasix] 20 mg Tablet 20 mg PO DAILY escitalopram oxalate 10 mg Tablet 10 mg PO DAILY Jardiance 10 mg Tablet 10 mg PO DAILY glimepiride [Amaryl] 4 mg Tablet 4 mg PO BID spironolactone 25 mg Tablet 12.5 mg PO DAILY losartan 50 mg Tablet 50 mg PO DAILY metoprolol succinate [Toprol XL] 50 mg Tablet Extended Release 24 Hr 50 mg PO DAILY rabeprazole [AcipHex] 20 mg Tablet,Delayed Release (Dr/Ec) 20 mg PO DAILY lorazepam 1 mg Tablet 1 mg PO BID PRN Bydureon 2 mg/0.65 mL Pen Injector SUBCUT aspirin 81 mg Tablet,Chewable 81 mg PO DAILY Discharge Instructions Instructions: Cholecystitis (GEN) Activity:: bedrest Equipment/Supplies:: No Equipment Needed Diet:: npo Discharge Orders Discharge Orders: Discharge Order (Routine); Ordered 04/08/22 Ordered By: Luis Purcell DS: Summary Time Spent with Patient providing and/or coordinating discharge services: Greater than 30 minutes Specific discharge activities: Interview/exam of patient, educating patient and/or family about need for transfer and alternative treatment options, coordination of transfer w/ receiving facility and discussion of case w/ accepting provider(s), completion of transfer orders and discharge summary Status at Discharge Functional status at discharge: independent ambulation Overall status at discharge: patient is not back to baseline Mental Status: mental status grossly normal Speech and Movement: speech and movement normal Mood: congruent mood Affect: normal affect Exam Narrative Exam Narrative: White male who is alert and oriented person place time circumstance. Abdomen is nondistended normal bowel sounds no bruits he has a positive Kern sign and right upper quadrant with some voluntary guarding but no rebound tenderness. He has active bowel sounds. No palpable masses. Psych Mental Status: mental status grossly normal Speech and Movement: speech and movement normal Mood: congruent mood Affect: normal affect DS: Data Vitals/I&O Vitals and I&O: Vital Signs Temperature 36.9 C 04/08/22 22:52 Temperature Source Tympanic 04/08/22 22:52 Pulse 92 H 04/08/22 23:11 Pulse Rhythm Regular 04/08/22 16:45 Pulse 88 04/08/22 09:01 Respiratory Rate 19 04/08/22 23:11 Respiratory Effort Non-Labored 04/08/22 16:45 Respiratory Depth Normal 04/08/22 16:45 Respiratory Pattern Normal 04/08/22 16:45 Blood Pressure 108/66 04/08/22 23:11 Blood Pressure Mean 89 04/08/22 09:00 Blood Pressure Position Supine 04/08/22 04:17 Pulse Oximetry 95 04/08/22 23:11 Oxygen Delivery Method Nasal Cannula 04/08/22 23:11 Oxygen Flow Rate 2 04/08/22 23:11 Pain Level 0 04/08/22 22:52 Comment 04/08/22 23:05 Intake & Output 04/07/22 04/08/22 04/08/22 23:59 11:59 23:59 Intake Total 60 / 910 850 / 910 Output Total 1350 / 3050 1700 / 3050 Balance -1290 / -2140 -850 / -2140 Weight 103.873 kg Intake: IV 100 / 100 Oral 60 / 810 750 / 810 Output: Urine 1350 / 3050 1700 / 3050 Other: Urine Color Pale Yellow Urine Appearance Clear Clear Urine Odor Normal Comment Void x1 in the urinal. Voiding Methods Urinal Urinal Data Completed and Pending Labs on day of discharge: Labs from last 24 hours 04/08/22 04/08/22 04/08/22 20:35 20:35 20:35 WBC 15.06 H RBC 5.02 Hgb 16.2 Hct 46.7 MCV 93 MCH 32.3 MCHC 34.7 RDW 13.0 Plt Count 159 MPV 11.2 H Immature Gran % 0.5 Neutrophils % 90.3 Lymphocytes % 4.3 Monocytes % 4.6 Eosinophils % 0.0 Basophils % 0.3 Nucleated RBC % 0.0 Absolute Neutrophils 13.60 H Absolute Lymphocytes 0.65 L Absolute Monocytes 0.69 Absolute Eosinophils 0.00 Absolute Basophils 0.05 PT INR APTT D-Dimer Sodium 137 Potassium 4.3 Chloride 100 Carbon Dioxide 26.8 Anion Gap 10.2 BUN 20 H Creatinine 1.2 Estimated GFR/1.73 m2 59.86 Glucose 154 H Calcium 8.9 Total Bilirubin 1.1 H AST 12 L ALT 22 Alkaline Phosphatase 66 Troponin I C-Reactive Protein NT-Pro-B Natriuret Pep Total Protein 7.1 Albumin 3.7 Lipase Procalcitonin 11.2 COVID-19 Source SARS-CoV-2 (PCR) 04/08/22 04/08/22 04/08/22 20:15 15:54 07:25 WBC RBC Hgb Hct MCV MCH MCHC RDW Plt Count MPV Immature Gran % Neutrophils % Lymphocytes % Monocytes % Eosinophils % Basophils % Nucleated RBC % Absolute Neutrophils Absolute Lymphocytes Absolute Monocytes Absolute Eosinophils Absolute Basophils PT INR APTT D-Dimer Sodium Potassium Chloride Carbon Dioxide Anion Gap BUN Creatinine Estimated GFR/1.73 m2 Glucose Calcium Total Bilirubin AST ALT Alkaline Phosphatase Troponin I < 50 < 50 C-Reactive Protein 15.68 H NT-Pro-B Natriuret Pep Total Protein Albumin Lipase Procalcitonin COVID-19 Source SARS-CoV-2 (PCR) 04/08/22 04/08/22 04/08/22 04:45 04:20 04:20 WBC 9.96 RBC 4.65 Hgb 14.9 Hct 43.9 MCV 94 MCH 32.0 MCHC 33.9 RDW 12.7 Plt Count 185 MPV 11.1 H Immature Gran % 0.4 Neutrophils % 85.1 Lymphocytes % 8.8 Monocytes % 4.8 Eosinophils % 0.7 Basophils % 0.2 Nucleated RBC % 0.0 Absolute Neutrophils 8.47 H Absolute Lymphocytes 0.88 L Absolute Monocytes 0.48 Absolute Eosinophils 0.07 Absolute Basophils 0.02 PT INR APTT 24.3 D-Dimer Sodium Potassium Chloride Carbon Dioxide Anion Gap BUN Creatinine Estimated GFR/1.73 m2 Glucose Calcium Total Bilirubin AST ALT Alkaline Phosphatase Troponin I C-Reactive Protein NT-Pro-B Natriuret Pep Total Protein Albumin Lipase Procalcitonin COVID-19 Source Nasal/Nares SARS-CoV-2 (PCR) Negative 04/08/22 04/08/22 04:20 04:20 WBC RBC Hgb Hct MCV MCH MCHC RDW Plt Count MPV Immature Gran % Neutrophils % Lymphocytes % Monocytes % Eosinophils % Basophils % Nucleated RBC % Absolute Neutrophils Absolute Lymphocytes Absolute Monocytes Absolute Eosinophils Absolute Basophils PT 9.5 INR 0.9 APTT D-Dimer 812 H Sodium 141 Potassium 4.4 Chloride 104 Carbon Dioxide 25.9 Anion Gap 11.1 H BUN 18 Creatinine 1.0 Estimated GFR/1.73 m2 >= 60.00 Glucose 288 H Calcium 8.5 Total Bilirubin 0.5 AST 13 L ALT 25 Alkaline Phosphatase 66 Troponin I < 50 C-Reactive Protein NT-Pro-B Natriuret Pep 975 H Total Protein 6.6 Albumin 3.7 Lipase 52 Procalcitonin COVID-19 Source SARS-CoV-2 (PCR) 04/08/22 20:35 Blood Blood Culture - Pending 04/08/22 20:15 Blood Blood Culture - Pending Preliminary micro results at discharge 04/08/22 20:35 Blood Culture - Pending Blood 04/08/22 20:15 Blood Culture - Pending Blood PFSH All Active Problems (Updated 04/08/22 @ 23:57 by Luis Purcell MD) Acute cholecystitis (Acute) Coronary atherosclerosis of [place] coronary artery (Acute) Acute on chronic heart failure with reduced ejection fraction and diastolic dysfunction (Acute) Ischemic cardiomyopathy (Acute) TTE with LVEF 17% with apical wall motion abnormalities per echocardiogram 02/27/2022 [facility] Chest pain (Acute) Diabetes mellitus (Chronic) ADD (attention deficit disorder) (Acute) Hematuria (Acute) Insomnia (Acute) Actinic keratosis (Acute) Medical History (Updated 04/08/22 @ 23:57 by Luis Purcell MD) Acute bursitis of left shoulder GERD (gastroesophageal reflux disease) Hypercholesterolemia Hypertension Neoplasm of unspecified behavior of bone, soft tissue, and skin Non-ST elevation [place] (NSTEMI) Surgical History (Updated 04/08/22 @ 17:10 by Luis Purcell MD) H/O esophagogastroduodenoscopy S/P lumbar spine operation (~10/2021) [facility] Dr[facility] Antonio; L2-L3 S/P TKR (total knee replacement) (~10/2020) s/p bilateral TKA; Left 09/04, Right 11/06 S/P tonsillectomy (02/27/22) Status post angioplasty with stent 100% LAD ostial lesion, 99% LAD proximal lesion, 90% proximal left circumflex, 90% stenosis ostial segment of ramus, RCA free of disease. Intervention summary stent to ostial segment of LAD stent placed to proximal LAD required dilatation and stenting of D1 branch. Status post angioplasty of first and second diagonal branches and thrombectomy of proximal left circumflex and angioplasty of ostial ramus branch. Social History Smoking/Tobacco Use Status: Former Tobacco Use Smoking risk assessment performed?: Yes Alcohol Intake: current Alcohol Intake frequency: 0-2 drinks per day Alcohol type: beer Drug use: Never Substance use type: does not use Current gender identity: male Do you feel safe at home: Yes Do you feel safe in your relationship?: Yes
[2022-04-09] VITALS: PULSE 93
[2022-04-09] MEDS: MORPHine 2 MG/ML SYR 1 MG IVP (00:04)
[2022-04-09] MEDS: PIPERACILLIN/TAZO 4.5 GM in Normal Saline 100 ML IVPB (02:07)
[2022-04-09] MEDS: Normal Saline Flush 10 ML SYR IVP ×2 (02:08→03:35)
[2022-04-09] MEDS: MORPHine 2 MG/ML SYR IVP (03:34)
[2022-04-09] MEDS: Acetaminophen 325 MG TAB PO (03:36)
[2022-04-09 03:43] VITALS: BP 111/69; PULSE 92; RESP 20; TEMP 38.1; O2SAT 96
[2022-04-09 04:36] VITALS: TEMP 37.9
[2022-04-09 05:26] VITALS: BP 122/67; PULSE 97; RESP 18; TEMP 37.9; O2SAT 92
[2022-04-09 06:22] VITALS: TEMP 37.7
[2022-04-09 06:38] LABS: Bilirubin Negative (Negative); Blood Negative (Negative); Clarity Clear (Clear); Glucose 100 mg/dL (Negative); Ketones Negative (Negative); Leukocyte Esterase Negative (Negative); Nitrite Negative (Negative); Urobilinogen 0.2 EU/dL (Up TO 0.2); pH 5.5 (5-8)
[2022-04-09 06:46] LABS: Bacteria Few HPF (Negative); Casts Negative LPF (Negative); Crystals Negative HPF (Negative); Epithelial Cells Rare HPF (Negative); Mucus Trace (Negative); RBC 0-2 HPF (0-2); WBC 0-2 HPF (0-5)
[2022-04-09 07:06] LABS: Abs Immature Grans 0.39 10^3/uL (0.0-0.06); Absolute Lymphocyte Count 0.61 10^3/uL (1.2-3.4); Basophils % 0.3; HCT 41.5 % (40.0-50.0); HGB 14.5 g/dL (13.5-17.5); Immature Grans % 2.6; Lymphocytes % 4.1; MCH 32.6 pg (27.0-33.0); MCHC 34.9 % (32.0-36.0); MCV 93 fL (80-95); Monocytes % 6.1; Neutrophils % 86.9; RBC 4.45 10^6/uL (4.36-5.78); RDW-SD 44.7 fL; WBC 14.79 10^3/uL (4.4-10.8)
[2022-04-09 07:12] LABS: Absolute Basophil Count 0.04 10^3/uL (0.0-0.2); Absolute Neutrophil Count 12.85 10^3/uL (1.2-6.7)
[2022-04-18 11:03] LABS: C & S Indicated? Yes
== END 2022-04-09 07:29 | disposition short-term general hospital (02) ==
LOC: ER 09:59 → MS 10:22
PROVIDERS: Student in an Organized Health Care Education/Training Program; Admitting Provider Internal Medicine; Emergency Provider Emergency Medicine; PCP Family Medicine; Visit Provider Internal Medicine
DX: I11.0 Hypertensive heart disease with heart failure (principal); I50.43 Acute on chronic combined systolic (congestive) and diastolic (congestive) heart failure; K81.0 Acute cholecystitis; R50.9 Fever, unspecified; R07.89 Other chest pain; E78.00 Pure hypercholesterolemia, unspecified; I25.2 Old myocardial infarction; Z95.5 Presence of coronary angioplasty implant and graft; Z20.822 Contact with and (suspected) exposure to COVID-19; Z79.899 Other long term (current) drug therapy; Z79.02 Long term (current) use of antithrombotics/antiplatelets; I45.89 Other specified conduction disorders; R79.1 Abnormal coagulation profile; E11.9 Type 2 diabetes mellitus without complications; F98.8 Other specified behavioral and emotional disorders with onset usually occurring in childhood and adolescence; G47.00 Insomnia, unspecified; K21.9 Gastro-esophageal reflux disease without esophagitis; R06.00 Dyspnea, unspecified; I25.5 Ischemic cardiomyopathy; I44.7 Left bundle-branch block, unspecified; R09.02 Hypoxemia; R93.7 Abnormal findings on diagnostic imaging of other parts of musculoskeletal system
CPT/HCPCS: 36410; 36415; 71275; 80048; 80053; 83690; 84145; 87040; 87077; 87635; 93005; 96365; 96366; 96372; 96374; 96375; 96376; 99285; J1650; 71045; 74177; 81003; 81015; 83735; 83880; 84484; 85025; 85049; 85379; 85610; 85730; 86140; 87086; 87186; 93010; 99220; 99291; G0378; J1940; J1941; J2270; J2405; J2543; J3490

== ENCOUNTER 2022-06-04 18:06 | Outpatient (REF) | payer MEDICARE, OTHER, SELFPAY | END 2022-06-04 18:07 | disposition home or self-care (01) | LOC: LBN 18:06 | PROVIDERS: PCP Family Medicine; Visit Provider Nurse Practitioner Family | DX: R19.8 Other specified symptoms and signs involving the digestive system and abdomen (principal) | CPT/HCPCS: 87077; 87070; 87186; 87205 ==

== ENCOUNTER 2022-06-13 10:26 | Outpatient (RCR) | payer MEDICARE, OTHER, SELFPAY | END 2022-06-15 23:59 | disposition home or self-care (01) | LOC: CR 10:26 | PROVIDERS: PCP Family Medicine; Visit Provider Internal Medicine Cardiovascular Disease | DX: Z51.89 Encounter for other specified aftercare (principal); I25.2 Old myocardial infarction; Z95.5 Presence of coronary angioplasty implant and graft; I50.23 Acute on chronic systolic (congestive) heart failure | CPT/HCPCS: S9472 ==

== ENCOUNTER → 2022-07-11 15:04 | Outpatient (CLI) | payer MEDICARE, OTHER, SELFPAY ==
--- NOTE | 2022-07-11 | DI.RAD_ITS ---
Exam(s) XR KNEE LT 3V AP,LAT,SCARLET EXAM: XR KNEE LT 3V AP,LAT,SCARLET CLINICAL HISTORY: LEFT KNEE PAIN-M25.562 TECHNIQUE: COMPARISON: No exams were available for comparison FINDINGS: Three views were obtained. There is a total knee joint replacement position. The components appear well seated. No other significant bony abnormality seen. IMPRESSION: RADIATION DOSE DELIVERED: Total DLP
== END ==
PROVIDERS: PCP Family Medicine; Visit Provider Family Medicine
DX: T84.84XA Pain due to internal orthopedic prosthetic devices, implants and grafts, initial encounter (principal); Z96.652 Presence of left artificial knee joint
CPT/HCPCS: 73562

== ENCOUNTER 2022-07-11 16:04 | Outpatient (REF) | payer MEDICARE, OTHER, SELFPAY ==
[2022-07-11 19:29] LABS: Abs Immature Grans 0.01 10^3/uL (0.0-0.06); Absolute Basophil Count 0.02 10^3/uL (0.0-0.2); Absolute Eosinophil Count 0.12 10^3/uL (0.0-0.7); Absolute Lymphocyte Count 0.96 10^3/uL (1.2-3.4); Absolute Monocyte Count 0.36 10^3/uL (0.1-0.8); Absolute Neutrophil Count 3.23 10^3/uL (1.2-6.7); Basophils % 0.4; Eosinophils % 2.6; HCT 47.6 % (40.0-50.0); HGB 15.6 g/dL (13.5-17.5); Immature Grans % 0.2; Lymphocytes % 20.4; MCH 30.8 pg (27.0-33.0); MCHC 32.8 % (32.0-36.0); MCV 94 fL (80-95); MPV 11.9 fL (8.0-11.0); Monocytes % 7.7; Neutrophils % 68.7; Platelet Count 189 10^3/uL (130-400); RBC 5.07 10^6/uL (4.36-5.78); RDW 13.3 % (11.8-14.1); RDW-SD 45.6 fL
[2022-07-11 19:56] LABS: C-Reactive Protein 0.23 mg/dL (0.0-0.3)
== END 2022-07-11 16:05 | disposition home or self-care (01) ==
LOC: NCHCN 16:04
PROVIDERS: PCP Family Medicine; Visit Provider Family Medicine
DX: M25.562 Pain in left knee (principal)
CPT/HCPCS: 85025; 86140

== ENCOUNTER 2022-07-16 10:00 | Outpatient (RCR) | payer MEDICARE, OTHER, SELFPAY | END 2022-07-16 23:59 | disposition home or self-care (01) | LOC: CR 10:00 | PROVIDERS: PCP Family Medicine; Visit Provider Internal Medicine Cardiovascular Disease | DX: Z51.89 Encounter for other specified aftercare (principal); I25.2 Old myocardial infarction; Z95.5 Presence of coronary angioplasty implant and graft; I50.23 Acute on chronic systolic (congestive) heart failure | CPT/HCPCS: S9472 ==

== ENCOUNTER 2022-08-15 11:03 | Outpatient (RCR) | payer MEDICARE, OTHER, SELFPAY | END 2022-08-15 23:59 | disposition home or self-care (01) | LOC: CR 11:03 | PROVIDERS: PCP Family Medicine; Visit Provider Internal Medicine Cardiovascular Disease | DX: I25.2 Old myocardial infarction (principal); Z95.5 Presence of coronary angioplasty implant and graft; I50.23 Acute on chronic systolic (congestive) heart failure; Z51.89 Encounter for other specified aftercare | CPT/HCPCS: S9472 ==

== ENCOUNTER 2022-08-29 10:00 | Outpatient (RCR) | payer MEDICARE, OTHER, SELFPAY ==
--- OUTSIDE RECORDS SUMMARY | 2022-08-22 09:59 | XMS_ITS | Encounter Summary ---
:1950 Author Organization [facility] [place] [address] Care Team Providers Name Role Phone Navin Souza MD Primary Care Provider Reason for Visit Auth/Cert Specialty Diagnoses / Procedures Referred By Contact Refer red To Contact Diagnoses Cholecystitis GALLSTONES Aidee Morillo MD [facility] Procedures PRO LAP, CHOLECYSTECTOMY/GRAPH LAPAROSCOPIC CHOLECYSTECTOMY WITH CHOLANGIOGRAM ([facility] ) [facility] [place] [address] Referral ID Status Reason Start Date Expiration Date Visits Requ ested Visits Authorized [id number] 1 1 Encounter Details Date Type Department Care Team Description 07/26/2022 Surgery Main Operating Room Aidee Morillo, JAMIL AROSCOPIC Carmina Schuler MD CHOLECYSTECTOMY ([facility] ) [facility] [place] [address] [place] [address] [phone] Social History Tobacco Use Types Packs/Day Years Used Date Smoking Tobacco: Former Cigarettes Quit : 03/17/1986 Smokeless Tobacco: Never Alcohol Use Standard Drinks/Week Comments Yes 35 (1 standard drink = 0.6 oz pure alcoh ol) Sex Assigned at Date Recorded Not on file documented as of this encounter Last Filed Vital Signs Vital Sign Reading Time Taken Comments Blood Pressure 148/91 07/26/2022 6:12 AM EST Pulse 70 07/26/2022 6:12 AM EST Temperature 36.2 ??C (97.2 ??F) 07/26/2022 6:12 AM EST Respiratory Rate 16 07/26/2022 6:12 AM EST Oxygen Saturation 98% 07/26/2022 6:12 AM EST Inhaled Oxygen Concentration - - Weight 105.3 kg (232 lb 1.6 oz) 07/26/2022 6:12 AM EST Height 193 cm (6' 4) 07/26/2022 6:12 AM EST Body Mass Index 28.25 07/26/2022 6:12 AM EST documented in this encounter Discharge Summaries Vance Lawson MD - 07/27/2022 12:26 PM EST General Surgery Discharge Summary ? Name: Fuad Pendleton Date of : 1950 Attending: AIDEE MORILLO Date of Admission: 07/26/2022 Date of Discharge: 07/27/22 ? Reason for admission: Post operative care following: ?? Procedure(s): LAPAROSCOPIC CHOLECYSTECTOMY (WRVU 10.47) ?? Surgeon(s) and Role: * Aidee Morillo MD - Primary * Yamil Waldrop MD ? History of Present Illness: Fuad Pendleton??is a 72 y.o.??male??with a history of NSTEMI 02/19/22 treated with PCI with need for ASA and plavix and initial poor EF of 17%. He developed epigastric and lower sub sternal pain on 04/08 and was evaluated at . ??He had acute cholecystitis seen on CT and Cardiology recommended cholecystostomy tube and waiting on any surgical intervention. ??Repeat TTE at that time showed an EF improved to 45%. A cholecystostomy tube was placed and he has done well since his last clinic visit on 06/29/22 when he was seen by Dr. Morillo. ?? The patient reports that??he??has been well since the last clinic visit without significant changes to medical status. Denies new diagnoses or medication changes. Denies recent illness including fever/chills, cough/flu-like symptoms, and recent infection. Denies chest pain and shortness of breath. ?? Mr. Pendleton was admitted to the Acute Care Surgery service for laparoscopic cholecystectomy with cholangiogram and removal of existing cholecystostomy tube. ?? Hospital Course: 07/26/2022: Patient underwent the above procedure and had an uneventful operative course. He was admitted to the short stay unit overnight for close observation. ?? 07/27/2022: No acute events overnight. Doing well this morning without significant pain. Has not required narcotic pain medication. Safe for discharge home today. ?? Prior to discharge on 07/27/22 or hospital day 1, patient's pain was well controlled with oral pain medications, pollack was removed, patient was voiding without difficulty, and wound(s) were intact and healing appropriately. Patient was having regular bowel movements, and tolerating a Carb Control diet75/75/90 CHO counting level 3. Vitals were within normal limits and patient was determined medicallyready for discharge to home. ?? Vital Signs ?? Last value Range last 24hrs Temperature Temp: 36.7 ??C (98.1 ??F) Temp: [36.3 ??C (97.3 ??F)-37 ??C (98.6 ??F)] Heart Rate Heart Rate: 70 Heart Rate: [70-75] Blood Pressure BP: 142/78 BP: (130-168)/(73-100) Respiratory Rate Resp: 16 Resp: [11-19] SpO2 SpO2: 95 % SpO2: [95 %-99 %] ? Physical Exam: Gen:??A0x3, NAD, resting comfortably.?? CVS: RRR. Resp:??Breathing comfortably on NC. Abd:??Soft, appropriately tender, nondistended. Incisions CDI with overlying dermabond. : Pollack removed after surgery, adequate UOP since surgery. Ext: SCDs in place, WWP. ?? Pertinent Lab Data: No results for input(s): WBC, HGB, HCT, PLATELET, PT, INR, PTT in the last 72 hours. No results for input(s): NA, K, CL, CO2, BUN, CREATININE, GLUCOSE, CALCIUM, MAGNESIUM, PHOS in the last 72 hours. ?? Medications: ?? Your Medications ?? Continued medications, unchanged Dose Details acetaminophen 325 mg Tab Commonly known as: Tylenol Take 3 tablets by mouth every 8 hours as needed for Pain. ?? 975 mg ?? Quantity: 30 tablet Refills: 1 ?? aspirin EC 81 mg Tbec Take 1 tablet by mouth daily. ?? 81 mg ?? Quantity: 90 tablet Refills: 3 ?? atorvastatin 80 mg Tab Commonly known as: Lipitor Take 1 tablet by mouth every evening. ?? 80 mg ?? Quantity: 90 tablet Refills: 3 ?? clopidogreL 75 mg Tab Commonly known as: Plavix Take 1 tablet by mouth daily. ?? 75 mg ?? Quantity: 90 tablet Refills: 3 ?? dulaglutide 0.75 mg/0.5 mL Pnij Commonly known as: Trulicity Inject 0.75 mg subcutaneously once a week. ?? 0.75 mg ?? Refills: 0 ?? empagliflozin 10 mg Tab Commonly known as: Jardiance Take 1 tablet by mouth daily. ?? 10 mg ?? Quantity: 30 tablet Refills: 11 ?? escitalopram 10 mg Tab Commonly known as: Lexapro Take 10 mg by mouth daily. ?? 10 mg ?? Refills: 0 ?? furosemide 20 mg Tab Commonly known as: Lasix Take 1 tablet by mouth daily. ?? 20 mg ?? Quantity: 90 tablet Refills: 3 ?? glimepiride 4 mg Tab Commonly known as: AMARYL Take 4 mg by mouth 2 times daily. ?? 4 mg ?? Refills: 0 ?? LORazepam 1 mg Tab Commonly known as: Ativan Take 1 mg by mouth 2 times daily as needed. ?? 1 mg ?? Refills: 0 ?? losartan 50 mg Tab Commonly known as: Cozaar Take 50 mg by mouth daily. ?? 50 mg ?? Refills: 0 ?? metoprolol succinate XL 50 mg Tablet sr Commonly known as: Toprol-XL Take 50 mg by mouth daily. ?? 50 mg ?? Refills: 0 ?? nitroGLYcerin 0.4 mg Subl Commonly known as: Nitrostat Place 1 tablet under the tongue every 5 minutes as needed for Chest pain. ?? 0.4 mg ?? Quantity: 30 tablet Refills: 0 ?? RABEprazole 20 mg Tbec Commonly known as: ACIPHEX Take 20 mg by mouth daily. ?? 20 mg ?? Refills: 0 ?? spironolactone 25 mg Tab Commonly known as: Aldactone Take 0.5 tablets by mouth daily. ?? 12.5 mg ?? Quantity: 90 tablet Refills: 1 ? Allergies: Allergies Allergen Reactions ??? Adhesive ? Corticosteroids (Glucocorticoids) Rash ? Imaging: No results found for this visit on 07/26/22. ?? Outpatient Services/Studies: No discharge procedures on file. ?? PLAN: - Discharge home today - Follow up in General Surgery clinic in 3-4 weeks - OK to resume all home meds - Close follow up with PCP to discuss hospitalization ?? Disposition: Home Condition at discharge: Stable ?? Instructions Given to Patient at Discharge: Patient Instructions ?? Discharge Instructions ?? You were were admitted and treated for the following diagnosis: history of acute cholecystitis, cholecystostomy tube ?? CALL YOUR PHYSICIAN IF: 1. You have a fever greater than 101F 2. You have diarrhea or vomiting for >24 hours, or stop having bowel movements and passing flatus 3. You have worsening pain, not controlled with your pain medication. 4. You develop redness, swelling, or new drainage from your wounds ?? Follow up: Future Appointments Date Time Provider Department Center 08/08/2022 1:30 PM [facility] IR ROOM 1 [facility] Rad ? Pain Control: Non-steroidal anti-inflammatories (NSAIDS) such as aspirin, Aleve and ibuprofen (Advil, Motrin) are medications that reduce pain and inflammation. To reduce your chance of side effects, it is recommended that you use Tylenol as needed for pain andthen NSAIDs. Alternative means of pain relief such as rest and relaxation, positioning, as well as decreasing stimulants such as coffee, tea, soft drinks, and nicotine may also help to alleviate pain. If you continue to experience significant pain 4-5 days after your discharge, it may be necessary priya re-evaluated by your physician. ?? Driving Restrictions: - No driving if you are too sore to enter or exit your vehicle comfortably, or if you are too sore to easily check your blind spot. No driving while using prescription pain medications ?? Activities: - Discuss return to work or school with your provide at your follow up appointment in the trauma clinic. - Increase your activity slowly. If it hurts don't do it, but try again the following day. - You may tire easily, so frequent naps may be necessary.. - Talk with your doctor about when you can return to work or school. - You may take a shower but have someone nearby in case you need help. ?? Diet: Eat a well-balanced diet. Fresh fruits, vegetables and fiber-containing foods are recommended. This will assist in wound healing. ?? Recommendations: - Take it easy for two weeks. Remember, If it hurts, don't do it. - Take several slow, short walks each day for the first two weeks, and gradually increase your distance. We recommend at least 4 times a day. ?? Wound Care: - You can shower per usual routine - Do not submerge wounds under water (avoid spas, pools and bathtubs) until fully healed. - Do not use creams, oils, or ointments on the wound. - See follow-up appointments for removal of sutures/nestor. ?? Comfort: - Some soreness can be expected. - Take your pain medication as needed and prescribed. - Taper use of pain medication as pain lessens. ?? Follow up appointments: 1.?You will have follow-up appointments at [facility] as indicated in the ???Future Appointments and Orders?? section of your discharge summary.?? If X- rays or CT scans have been ordered for you prior to this appointment you will need to report to the Radiology department, desk 3T, 1 hour prior to your clinic appointment time.?? Plan to follow up in the General Surgery clinic in 3-4 weeks. 2.?If you do not have a scheduled follow-up appointment listed??at the time of discharge, you will be notified of your scheduled appointment on the next business day.?? Please call [phone] ifyou do not hear from us by that time, as your timely follow-up is very important to us. ?? Your care was managed by the Trauma and Acute Care Surgery Team at [facility]. If you have any questions or concerns, please feel free to contact us. Provider Contact Information: General Surgery: [facility] (after business hours): ?? CC: Primary Care Physician: Navin Souza MD ? General Instructions None ? Signed: Perry Browning MD General Surgery ACS pager [phone] ?? Primary [place]ma[place] Physician: Navin Souza MD [address] / [facility] [id number] ?? I have independently reviewed the relevant laboratory and radiographic studies. I have edited the above note and agree with the details as written. My physical examination confirms the resident's findings. The assessment and plan were formulated in discussion with me at the time of the visit and I agree with them as documented. Vance Lawson MD documented in this encounter Discharge Instructions Patient InstructionsJaPerry neal MD - 07/27/2022 9:54 AM EST Discharge Instructions You were were admitted and treated for the following diagnosis: history of acute cholecystitis, cholecystostomy tube CALL YOUR PHYSICIAN IF: You have a fever greater than 101F You have diarrhea or vomiting for >24 hours, or stop having bowel movements and passing flatus You have worsening pain, not controlled with your pain medication. You develop redness, swelling, or new drainage from your wounds Follow up: Future Appointments Date Time Provider Department Center 08/08/2022 1:30 PM [facility] IR ROOM 1 [facility] Rad Pain Control: Non-steroidal anti-inflammatories (NSAIDS) such as aspirin, Aleve and ibuprofen (Advil, Motrin) are medications that reduce pain and inflammation. To reduce your chance of side effects, it is recommended that you use Tylenol as needed for pain andthen NSAIDs. Alternative means of pain relief such as rest and relaxation, positioning, as well as decreasing stimulants such as coffee, tea, soft drinks, and nicotine may also help to alleviate pain. If you continue to experience significant pain 4-5 days after your discharge, it may be necessary priya re-evaluated by your physician. Driving Restrictions: - No driving if you are too sore to enter or exit your vehicle comfortably, or if you are too sore to easily check your blind spot. No driving while using prescription pain medications Activities: - Discuss return to work or school with your provide at your follow up appointment in the trauma clinic. - Increase your activity slowly. If it hurts don't do it, but try again the following day. - You may tire easily, so frequent naps may be necessary.. - Talk with your doctor about when you can return to work or school. - You may take a shower but have someone nearby in case you need help. Diet: Eat a well-balanced diet. Fresh fruits, vegetables and fiber-containing foods are recommended. This will assist in wound healing. Recommendations: - Take it easy for two weeks. Remember, If it hurts, don't do it. - Take several slow, short walks each day for the first two weeks, and gradually increase your distance. We recommend at least 4 times a day. Wound Care: - You can shower per usual routine - Do not submerge wounds under water (avoid spas, pools and bathtubs) until fully healed. - Do not use creams, oils, or ointments on the wound. - See follow-up appointments for removal of sutures/nestor. Comfort: - Some soreness can be expected. - Take your pain medication as needed and prescribed. - Taper use of pain medication as pain lessens. Follow up appointments: 1. You will have follow-up appointments at [facility] as indicated in the ???Future Appointments and Orders?? section of your discharge summary. If X-rays or CT scans have been ordered for you prior to thisappointment you will need to report to the Radiology department, desk 3T, 1 hour prior to your clinic appointment time. Plan to follow up in the General Surgery clinic in 3-4 weeks. 2. If you do not have a scheduled follow-up appointment listed at the time of discharge, you will benotified of your scheduled appointment on the next business day. Please call [phone] if you do not hear from us by that time, as your timely follow-up is very important to us. Your care was managed by the Trauma and Acute Care Surgery Team at [facility]. If you have any questions or concerns, please feel free to contact us. Provider Contact Information: General Surgery: [facility] (after business hours): CC: Primary Care Physician: Navin Souza MD AttachmentsThe following attachments cannot be sent through Care Everywhere. Cholecystectomy: General Info (Jamaican)Cholecystectomy: Post-op (Jamaican) documented in this encounter Medications at Time of Discharge Medication Sig Dispensed Refills Start Date End Date dulaglutide (Trulicity) Inject 0.75 mg 0 0.75 mg/0.5 mL Pen subcutaneously once a Injector week. acetaminophen (Tylenol) Take 3 tablets by mouth 30 tablet 1 04/11/2022 325 mg Tablet every 8 hours as needed for Pain. empagliflozin Take 1 tablet by mouth 30 tablet 11 03/02/2022 (Jardiance) 10 mg Tablet daily. nitroGLYcerin Place 1 tablet under 30 tablet 0 02/28/2022 (Nitrostat) 0.4 mg the tongue every 5 Tablet, Sublingual minutes as needed for Chest pain. atorvastatin (Lipitor) Take 1 tablet by mouth 90 tablet 3 0 02/28/2022 80 mg Tablet every evening. aspirin EC 81 mg Tablet, Take 1 tablet by mouth 90 tablet 3 03/01/2022 Delayed Release (E.C.) daily. clopidogreL (Plavix) 75 Take 1 tablet by mouth 90 tablet 3 03/01/2022 mg Tablet daily. furosemide (Lasix) 20 mg Take 1 tablet by mouth 90 tablet 3 03/01/2022 Tablet daily. spironolactone Take 0.5 tablets by 90 tablet 1 03/01/2022 (Aldactone) 25 mg Tablet mouth daily. escitalopram (Lexapro) Take 10 mg by mouth 0 03/0 12/2021 10 mg Tablet daily. glimepiride (AMARYL) 4 Take 4 mg by mouth 2 0 mg Tablet times daily. LORazepam (Ativan) 1 mg Take 1 mg by mouth 2 0 03 /12/2021 Tablet times daily as needed. losartan (Cozaar) 50 mg Take 50 mg by mouth 0 Tablet daily. metoprolol succinate XL Take 50 mg by mouth 0 10/2020 (Toprol-XL) 50 mg Tablet daily. Sustained Release 24 hr RABEprazole (ACIPHEX) 20 Take 20 mg by mouth 0 mg Tablet, Delayed daily. Release (E.C.) documented as of this encounter Progress Notes Rajinder Giles RN - 07/27/2022 12:26 PM EST [facility] Short Stay Unit Discharge Note All relevant discharge milestones have been met by the patent. After Visit Summary and discharge teaching reviewed with the patient. IV access has been discontinued. All personal belongings have been returned to the patient/family upon their departure from the unit.Patient has been discharged to home The patient has been discharged without VNA services. Perry Browning MD - 07/27/2022 10:28 AM EST ID/MECHANISM OF INJURY: Fuad Pendleton is a 72 y.o. male S/p cholecystectomy, removal of cholecystostomy tube OR CASE INFORMATION: 07/26/2022 Procedure(s): LAPAROSCOPIC CHOLECYSTECTOMY (WRVU 10.47) FOLLOW-UP NEEDED: Does pt need to f-u with surgeon or [facility] (please indicate reason if attending provider): [facility] How soon should ACS f/u be? 3-4 weeks Does patient need imaging prior to ACS f/u? No Are CT/MRI Safety questions complete (if needed)? NA Does patient have nestor/sutures? When should they be removed? What service is responsible? No Does patient need labs with TACS f/u? No Follow-up with other services? No Advise of Service and needs. Imaging orders entered: No Radiology Safety questions done for MRI/CT? N/A New or current ostomy? Ostomy nurse shared visit No Mobility concerns: Fully ambulatory Wound vac (requires 60min clinic visit) No On vent? If Yes - Needs to have someone from facility and supplies. No On Dialysis: No (SCHEDULE?) INCIDENTAL FINDINGS Incidental Findings (yes/no): No OPIOID CONSENT/NARCOTIC AGREEMENTS Current Month Narcotic Consent? N/A No Isolation D/c to: Home If Rehab - Rehab Name: PCP Name: MD Perry Pablo MD 07/27/2022 Cliff Lee RN - 07/27/2022 6:55 AM ESTSummary: Progress Note [facility] Short Stay Unit Shift Note The patient is progressing as expected except Skin / Incisions. Details: scant sanguinous drainage to umbilical lap site, denies pain, large urine output and adequate intake. Patient Vitals for the past 24 hrs: Temp Heart Rate From SP02 Pulse Resp BP SpO2 O2 Flow Rate (L/min) O2 Device 07/26/22 1112 36.3 ??C (97.3 ??F) 73 bpm -- -- (!) 165/95 99 % 6 L/min Simple mask 07/26/22 1113 -- 74 bpm 75 13 -- 99 % -- -- 07/26/22 1115 -- 72 bpm 72 17 (!) 168/98 99 % 3 L/min NC 07/26/22 1130 -- 71 bpm 72 11 (!) 148/100 97 % -- -- 07/26/22 1145 -- 72 bpm 71 17 136/79 97 % -- -- 07/26/22 1200 -- 69 bpm 70 15 134/73 96 % -- -- 07/26/22 1230 36.6 ??C (97.9 ??F) 70 bpm 70 19 130/76 97 % 2 L/min NC 07/26/22 1300 -- 69 bpm -- -- -- 97 % -- -- 07/26/22 1336 36.6 ??C (97.9 ??F) 68 bpm -- 16 133/74 97 % 2 L/min NC 07/26/22 2003 36.8 ??C (98.2 ??F) 64 bpm -- 16 148/83 96 % 2 L/min NC 07/26/22 2316 36.9 ??C (98.4 ??F) 65 bpm -- -- 153/83 97 % 2 L/min NC 07/27/222 37 ??C (98.6 ??F) 71 bpm -- 16 154/88 98 % 2 L/min NC Intake/Output Summary (Last 24 hours) at 07/27/2022 0655 Last data filed at 07/27/2022 0403 Gross per 24 hour Intake 1740 ml Output 2400 ml Net -660 ml Will continue to progress the patient as tolerated to meet their relevant discharge milestones. Tammy Benavides - 07/26/2022 4:27 PM EST Post-Operative Check Fuad Pendleton is a 72 y.o. male s/p Procedure(s): LAPAROSCOPIC CHOLECYSTECTOMY (WRVU 1047) S: Pt denies N/V, chest pain, SOB, chills; he offers no complaints at present. Tolerating a carb-controlled regular diet. Has not ambulated or passed flatus, has voided. O: Temp: [36.3 ??C (97.3 ??F)-36.6 ??C (97.9 ??F)] Heart Rate: [70-75] Resp: [11-19] BP: (130-168)/(73-100) SpO2: [96 %-99 %] Heart Rate from SpO2: [68 bpm-74 bpm] No intake/output data recorded. I/O this shift: In: 840 [I.V.:740; IV Piggyback:100] Out: 300 [Urine:280; Blood:20] Recent Results (from the past 24 hour(s)) POCT Glucose Result Value Ref Range POC Glucose 199 65 - 199 mg/dL POCT Glucose Result Value Ref Range POC Glucose 186 65 - 199 mg/dL BLOOD GAS 2 ARTERIAL Result Value Ref Range pH Art 7.33 (L) 7.35 - 7.45 pCO2 Art 45 35 - 45 mmHg pO2 Art Not Perf 85 - 104 mmHg HCO3 Art 23.4 20.0 - 26.0 mmol/L BE Art -2.7 -3.0 - 3.0 mmol/L Hgb Blood Gas 14.6 13.7 - 16.5 g/dL O2HB Art 96.9 94.0 - 97.0 % COHB Art 0.8 % METHB Art 0.3 <=1.5 % Na Whole Blood 135 135 - 145 mmol/L K Whole Blood 3.8 3.5 - 5.0 mmol/L ICa Whole Blood 1.16 1.15 - 1.33 mmol/L CL Whole Blood 104 98 - 107 mmol/L Gluc Whole Bld 190 65 - 199 mg/dL Lactate WB 1.7 0.5 - 2.2 mmol/L FIO2 Art 48 % Temp Art 36.2 Celsius BLOOD GAS 2 ARTERIAL Result Value Ref Range pH Art 7.36 7.35 - 7.45 pCO2 Art 43 35 - 45 mmHg pO2 Art 144 (H) 85 - 104 mmHg HCO3 Art 23.7 20.0 - 26.0 mmol/L BE Art -2.1 -3.0 - 3.0 mmol/L Hgb Blood Gas 14.7 13.7 - 16.5 g/dL O2HB Art 98.1 (H) 94.0 - 97.0 % COHB Art 0.6 % METHB Art 0.0 <=1.5 % Na Whole Blood 135 135 - 145 mmol/L K Whole Blood 3.9 3.5 - 5.0 mmol/L ICa Whole Blood 1.14 (L) 1.15 - 1.33 mmol/L CL Whole Blood 104 98 - 107 mmol/L Gluc Whole Bld 187 65 - 199 mg/dL Lactate WB 1.8 0.5 - 2.2 mmol/L FIO2 Art 57 % Flow Art 1.0 LPM PF Ratio Art 253 Temp Art 36.0 Celsius POCT Glucose Result Value Ref Range POC Glucose 259 (H) 65 - 199 mg/dL POCT Glucose Result Value Ref Range POC Glucose 274 (H) 65 - 199 mg/dL POCT Glucose Result Value Ref Range POC Glucose 247 (H) 65 - 199 mg/dL POCT Glucose Result Value Ref Range POC Glucose 247 (H) 65 - 199 mg/dL POCT Glucose Result Value Ref Range POC Glucose 209 (H) 65 - 199 mg/dL POCT Glucose Result Value Ref Range POC Glucose 191 65 - 199 mg/dL POCT Glucose Result Value Ref Range POC Glucose 172 65 - 199 mg/dL POCT Glucose Result Value Ref Range POC Glucose 178 65 - 199 mg/dL Physical Exam Gen: A0x3, NAD, resting comfortably CVS: RRR Resp: Breathing comfortably on NC Abd: Soft, appropriately tender, nondistended, incisions C/D/I : Pollack out, UOP adequate Ext: SCDs in place, WWP A&P Fuad Pendleton is a 72 y.o. male s/p laparoscopic cholecystectomy currently in stable condition and recovering well. - Tolerating Carb Control diet 75/75/90 CHO counting level 3 w/o N/V - Pain well-controlled - Hemodynamically stable - UOP adequate - Continue post operative plan per primary team Tammy Wilder, MS3 07/26/2022 Mayco Galvez MD - 07/26/2022 3:38 PM EST Post-Operative Check ?? Fuad Pendleton is a 72 y.o. male s/p Procedure(s): LAPAROSCOPIC CHOLECYSTECTOMY (WRVU 1047) ?? S: Patient is doing well and has no complaints at this time. He is eating a regular diet without nausea or vomiting. He denies any fever, chills, chest pain, shortness of breath, or lightheadedness/dizziness. He has voided. ?? O: Temp: [36.3 ??C (97.3 ??F)-36.6 ??C (97.9 ??F)] Heart Rate: [70-75] Resp: [11-19] BP: (130-168)/(73-100) SpO2: [96 %-99 %] Heart Rate from SpO2: [68 bpm-74 bpm] ?? No intake/output data recorded. I/O this shift: In: 840 [I.V.:740; IV Piggyback:100] Out: 300 [Urine:280; Blood:20] ?? Recent Results (from the past 24 hour(s)) POCT Glucose Result Value Ref Range ?? POC Glucose 199 65 - 199 mg/dL POCT Glucose Result Value Ref Range ?? POC Glucose 186 65 - 199 mg/dL BLOOD GAS 2 ARTERIAL Result Value Ref Range ?? pH Art 7.33 (L) 7.35 - 7.45 ?? pCO2 Art 45 35 - 45 mmHg ?? pO2 Art Not Perf 85 - 104 mmHg ?? HCO3 Art 23.4 20.0 - 26.0 mmol/L ?? BE Art -2.7 -3.0 - 3.0 mmol/L ?? Hgb Blood Gas 14.6 13.7 - 16.5 g/dL ?? O2HB Art 96.9 94.0 - 97.0 % ?? COHB Art 0.8 % ?? METHB Art 0.3 <=1.5 % ?? Na Whole Blood 135 135 - 145 mmol/L ?? K Whole Blood 3.8 3.5 - 5.0 mmol/L ?? ICa Whole Blood 1.16 1.15 - 1.33 mmol/L ?? CL Whole Blood 104 98 - 107 mmol/L ?? Gluc Whole Bld 190 65 - 199 mg/dL ?? Lactate WB 1.7 0.5 - 2.2 mmol/L ?? FIO2 Art 48 % ?? Temp Art 36.2 Celsius BLOOD GAS 2 ARTERIAL Result Value Ref Range ?? pH Art 7.36 7.35 - 7.45 ?? pCO2 Art 43 35 - 45 mmHg ?? pO2 Art 144 (H) 85 - 104 mmHg ?? HCO3 Art 23.7 20.0 - 26.0 mmol/L ?? BE Art -2.1 -3.0 - 3.0 mmol/L ?? Hgb Blood Gas 14.7 13.7 - 16.5 g/dL ?? O2HB Art 98.1 (H) 94.0 - 97.0 % ?? COHB Art 0.6 % ?? METHB Art 0.0 <=1.5 % ?? Na Whole Blood 135 135 - 145 mmol/L ?? K Whole Blood 3.9 3.5 - 5.0 mmol/L ?? ICa Whole Blood 1.14 (L) 1.15 - 1.33 mmol/L ?? CL Whole Blood 104 98 - 107 mmol/L ?? Gluc Whole Bld 187 65 - 199 mg/dL ?? Lactate WB 1.8 0.5 - 2.2 mmol/L ?? FIO2 Art 57 % ?? Flow Art 1.0 LPM ?? PF Ratio Art 253 ? Temp Art 36.0 Celsius POCT Glucose Result Value Ref Range ?? POC Glucose 259 (H) 65 - 199 mg/dL POCT Glucose Result Value Ref Range ?? POC Glucose 274 (H) 65 - 199 mg/dL POCT Glucose Result Value Ref Range ?? POC Glucose 247 (H) 65 - 199 mg/dL POCT Glucose Result Value Ref Range ?? POC Glucose 247 (H) 65 - 199 mg/dL POCT Glucose Result Value Ref Range ?? POC Glucose 209 (H) 65 - 199 mg/dL POCT Glucose Result Value Ref Range ?? POC Glucose 191 65 - 199 mg/dL POCT Glucose Result Value Ref Range ?? POC Glucose 172 65 - 199 mg/dL ? Physical Exam Gen: A0x3, NAD, resting comfortably. CVS: RRR. Resp: Breathing comfortably on NC. Abd: Soft, appropriately tender, nondistended. Incisions CDI with overlying dermabond. : Pollack removed after surgery, adequate UOP since surgery. Ext: SCDs in place, WWP. ?? AP Fuad Pendleton is a 72 y.o. male s/p laparoscopic cholecystectomy. He is currently in stable condition and recovering well. ?? - Tolerating Carb Control diet 75/75/90 CHO counting level 3 without nausea or vomiting. - Pain well-controlled. - Hemodynamically stable. - UOP adequate. - Continue post operative plan per primary team. ?? Mayco Galvez MD 07/26/2022 3:38 PM Alba Ballard RN - 07/26/2022 11:27 AM EST 1115 Patient admitted to PACU. Hand off received from Roby Reeves. Assessments as documented. Monitors on, alarms audible and individualized to patient. Break coverage by Monserrat Galeas RN [phone] 1230 PACU D/C criteria met 1320 Hand off to LONA Calvillo SSU documented in this encounter H&P Notes Lenny Matos MD - 07/26/2022 6:[address] [facility] General Surgery History and Physical Fuad Pendleton is a 72 y.o. male with a history of NSTEMI 02/19/22 treated with PCI with need for ASA and plavix and initial poor EF of 17%. He developed epigastric and lower sub sternal pain on 04/08 and wasevaluated at . He had acute cholecystitis seen on CT and Cardiology recommended cholecystostomy tube and waiting on any surgical intervention. Repeat TTE at that time showed an EF improved to 45%. A cholecystostomy tube was placed and he has done well since his last clinic visit on 06/29/22 when he was seen by Dr. Morillo - see the documentation from that visit for further detail. The patient reports that he has been well since the last clinic visit without significant changes tomedical status. Denies new diagnoses or medication changes. Denies recent illness including fever/chills, cough/flu-like symptoms, and recent infection. Denies chest pain and shortness of breath. Signficant PM/SH Past Medical History: Diagnosis Date ??? Anxiety ??? Diabetes mellitus ??? GERD (gastroesophageal reflux disease) ??? HLD (hyperlipidemia) ??? Hypertension ??? NSTEMI (non-ST elevated myocardial infarction) Past Surgical History: Procedure Laterality Date ??? IR BILIARY TUBE CHECK/CHANGE/REMOVE 06/01/2022 IR Biliary Tube Check/Change/Remove 06/01/2022 Mike Ching MD [facility] INTERVENTIONL RAD ??? IR CHOLECYSTOSTOMY TUBE PLACEMENT 04/10/2022 IR Cholecystostomy Tube Placement 04/10/2022 Mike Ching MD [facility] INTERVENTIONL RAD Current Facility-Administered Medications: ??? sodium chloride 0.9 % (flush) (BD PosiFlush Normal Saline 0.9) flush 5-20 mL, 5-20 mL, Intravenous, Q1 Min PRN, Delfino Lind MD ??? lidocaine (Xylocaine) 1% (10 mg/mL) injection 3 mg, 0.3 mL, Subcutaneous, Once PRN, Delfino Lind MD ??? lactated ringers infusion, 1,000 mL, Intravenous, Continuous, Delfino Lind MD Patient Vitals for the past 24 hrs: Temp Pulse Resp BP SpO2 O2 Device 07/26/22 0612 36.2 ??C (97.2 ??F) 70 16 (!) 148/91 98 % RA Physical Exam Gen: alert and oriented, laying comfortably in bed Neuro: no focal deficits CV: regular rate and rhythm Pulm: clear bilaterally, breathing comfortably on room air GI: Soft, nondistended, nontender Assesssment/Plan: Proceed with scheduled procedure: laparoscopic cholecystectomy, possible open, possible common bile duct exploration. He has been appropriately consented and is ready to proceed as planned. Lenny Matos MD 07/26/2022 General Surgery [id number] documented in this encounter Miscellaneous Notes Op Note - Aidee Morillo MD - 07/26/2022 10:59 AM EST [facility] Operative Note Patient Name: Fuad Pendleton : [id number] MR#: [id number] Case Date: 07/26/2022 Surgeon: Surgeon(s) and Role: * Aidee Morillo MD - Primary * Yamil Waldrop MD Preoperative diagnosis: GALLSTONES Postoperative diagnosis: GALLSTONES Procedure(s) (LRB): LAPAROSCOPIC [facility]LE[facility]STECT[facility] (N/A) Findings: 1. Adhesions of omentum to the gallbladder 2. Gallbladder chronically inflamed and decompressed with cholecystostomy tube in place, cystic ductidentified 3. Cholangiogram unable to be performed as cystic duct diminutive with obliterated lumen 4. Gallbladder removed from abdomen through the umbilical port in a Eco bag and sent for pathology. Cholecystostomy tube removed. Anesthesia: General Estimated Blood Loss: 25 mL Specimens removed during surgery: Order Name Source Comment Collection Info Order Time SPECIMEN TO PATHOLOGY OR20 GALLSTONES gallbladder & contents - perm excision No 07/26/2022 10:41 AM Time specimen removed from patient: 10:30 AM Number of tissue samples (in container) 1 Biospecimen to store? No Drains: none Surgical Closure: Primary Closure - skin incision is completely closed without any wires, soraya, drains or other devices Disposition: awakened from anesthesia, extubated and taken to the recovery room in a stable condition, having suffered no apparent untoward event. Condition: doing well without problems (Please see the Surgical Encounter Summary for any Implant and Specimen details pertinent to this patient.) HPI/Surgical Indications: 72 yo male with cholecystostomy tube in place with minimal drainage over the past few weeks and no pain as long as tube remains open. He failed clamping trial and will need cholecystectomy when safe to proceed. Based on Cardiology's recommendations from March he would be far enough out from his NSTEMI to safely proceed with cholecystectomy if needed sometime in June. Discussed options with Mr Pendleton including waiting on surgery for another 3-4 months so that he can come off plavix and asa (although this would still be risky form in stent restenosis risk). Discussed proceeding with cholecystectomy while on plavix and asa. After discussion of the options, risks and benefits elected to proceed with laparoscopic cholecystectomy with cholangiogram and possible lap CBD exploration. Procedure Description: The patient was identified in preoperative holding and was taken to the operating room and general anesthesia was induced. The abdomen was prepped and draped in the standard sterile fashion. Timeout was performed. Preoperative antibiotics were given. Incision was made above the umbilicus and the fascia was grasped between two Chaz clamps. The fascia was opened with the knife and the underlying peritoneum was grasped and opened with Metzenbaum scissors. 0 vicryl suture was placed on either side of the fascial opening. A 12mm Lopez trocar was placed into the abdomen under direct visualization. Theabdomen was insufflated to 15 mmHg pressure with CO2. A 10mm 30 degree scope was brought into the abdomen. All remaining trocars were inserted under direct visualization. The next trocar was a 5 mm trocar placed in the midline just below the xiphoid. Two 5 mm trocars were placed in the RUQ. A graspingforceps was placed on the fundus of the gallbladder and the gallbladder was retracted cephalad. Adhesions of omentum to the gallbladder were taken down bluntly. Using appropriate grasping instruments, the peritoneum overlying the triangle of Calot was incised. The gallbladder was shrunken with cholecystostomy tube place coming in through the liver. The cystic duct/gallbladder junction was eventually able to be identified after tedious dissection through dense woody adhesions. The cystic duct was dissected circumferentially. A clip was then placed on the cystic duct/gallbladder junction and an intraoperative cholangiogram was attempted. Cholangiogram unable to be performed as cystic duct diminutivewith obliterated lumen. Remaining soft tissue attachments to the gallbladder to the liver bed were then divided using electrocautery. The cystic duct was never visualized. Clips placed on bleeding fibrous tissue laterally along the liver bed. The 10mm 30 degree scope was changed to a 5mm 30 degree scope and was moved to the subxiphoid port site and an Eco bag was inserted through the umbilical port site. The gallbladder was placed in the Eco bag and extracted through the umbilical port site. The gallbladder bed was inspected and excellent hemostasis was obtained. The cholecystostomy tube was removed. Irrigation was used and suctioned out and was clear. The 5mm trocars were removed under direct visu alization. The umbilical trocar was removed and the fascial defect closed with the 0 vicryl suture after evacuating the pneumoperitoneum. Hemostasis was achieved at all port sites.The skin was closed with a running 4-0 monocryl subcuticular stitch and the skin dressed with Dermabond. All counts were correct at the end of the case. The patient was extubated in the OR and returned to the recovery area in stable condition. Attestation: Case Date: 07/26/2022 I was present and I participated during the entire procedure (does not need to include opening and closing). AIDEE MORILLO MD 07/26/2022 documented in this encounter Plan of Treatment Not on filedocumented as of this encounter Procedures Procedure Name Priority Date/Time Associated Comments Diagnosis POCT GLUCOSE Routine 07/27/2022 7:52 Results for this AM EST procedure are i n the results section. POCT GLUCOSE Routine 07/27/2022 4:02 Results for this AM EST procedure are i n the results section. POCT GLUCOSE Routine 07/26/2022 11:12 Results for this PM EST procedure are i n the results section. POCT GLUCOSE Routine 07/26/2022 8:06 Results for this PM EST procedure are i n the results section. POCT GLUCOSE Routine 07/26/2022 4:09 Results for this PM EST procedure are i n the results section. POCT GLUCOSE Routine 07/26/2022 1:52 Results for this PM EST procedure are i n the results section. POCT GLUCOSE Routine 07/26/2022 11:44 Results for this AM EST procedure are i n the results section. POCT GLUCOSE Routine 07/26/2022 11:15 Results for this AM EST procedure are i n the results section. POCT GLUCOSE Routine 07/26/2022 10:58 Results for this AM EST procedure are i n the results section. SPECIMEN TO PATHOLOGY Routine 07/26/2022 10:41 Re sults for this AM EST procedure are i n the results section. SURGICAL PATHOLOGY Routine 07/26/2022 10:30 Resul ts for this REPORT AM EST procedure are i n the results section. POCT GLUCOSE Routine 07/26/2022 10:28 Results for this AM EST procedure are i n the results section. POCT GLUCOSE Routine 07/26/2022 10:01 Results for this AM EST procedure are i n the results section. POCT GLUCOSE Routine 07/26/2022 9:27 Results for this AM EST procedure are i n the results section. BLOOD GAS 2 ARTERIAL Routine 07/26/2022 8:35 Resu lts for this AM EST procedure are i n the results section. BLOOD GAS 2 ARTERIAL Routine 07/26/2022 8:28 Resu lts for this AM EST procedure are i n the results section. POCT GLUCOSE Routine 07/26/2022 8:22 Results for this AM EST procedure are i n the results section. LAPAROSCOPIC 07/26/2022 7:33 GALLSTONES CHOLECYSTECTOMY ([facility] AM EST 10.47) POCT GLUCOSE Routine 07/26/2022 6:35 Results for this AM EST procedure are i n the results section. documented in this encounter Results POCT Glucose (07/27/2022 7:52 AM EST) P athologist Signature POC Glucose 169 65 - 199 [facility] mg/dL [facility] Comment: Supplemental ranges: <140 mg/dL before meals <180 mg/dL all other times of the day Specimen Anatomical Collection Method Collection Time Receive d Time (Source) Location / / Volume Laterality Blood 07/27/2022 7:52 AM 7:52 EST AM EST Aidee Morillo MD POINT OF CARE TEST ORDERABLE S Performing Organization Address City/State/ZIP Code Phon e Number [facility] [place] [address] POCT Glucose (07/27/2022 4:02 AM EST) athologist Signature POC Glucose 126 65 - 199 [facility] [place] mg/dL [facility] Comment: Supplemental ranges: <140 mg/dL before meals <180 mg/dL all other times of the day Specimen Anatomical Collection Method Collection Time Receive d Time (Source) Location / / Volume Laterality Blood 07/27/2022 4:02 AM 4:02 EST AM EST Aidee Morillo MD POINT OF CARE TEST ORDERABLE S Performing Organization Address City/State/ZIP Code Phon e Number [address] POCT Glucose (07/26/2022 11:12 PM EST) athologist Signature POC Glucose 99 65 - 199 [facility] [place] mg/dL [facility] Comment: Supplemental ranges: <140 mg/dL before meals <180 mg/dL all other times of the day Specimen Anatomical Collection Method Collection Time Receive d Time (Source) Location / / Volume Laterality Blood 07/26/2022 11:12 07/26/2022 PM EST 11:12 PM EST Aidee Morillo MD POINT OF CARE TEST ORDERABLE S Performing Organization Address City/State/ZIP Code Phon e Number [address] POCT Glucose (07/26/2022 8:06 PM EST) athologist Signature POC Glucose 180 65 - 199 [facility] [place] mg/dL [facility] Comment: Supplemental ranges: <140 mg/dL before meals <180 mg/dL all other times of the day Specimen Anatomical Collection Method Collection Time Receive d Time (Source) Location / / Volume Laterality Blood 07/26/2022 8:06 PM 8:06 EST PM EST Aidee Morillo MD POINT OF CARE TEST ORDERABLE S Performing Organization Address City/State/[place] [address] POCT Glucose (07/26/2022 4:09 PM EST) athologist Signature POC Glucose 178 65 - 199 [facility] mg/dL [facility] Comment: Supplemental ranges: <140 mg/dL before meals <180 mg/dL all other times of the day Specimen Anatomical Collection Method Collection Time Receive d Time (Source) Location / / Volume Laterality Blood 07/26/2022 4:09 PM 2 4:09 EST PM EST Aidee Morillo MD POINT OF CARE TEST ORDERABLE S Performing Organization Address City/State/[place] [address] POCT Glucose (07/26/2022 1:52 PM EST) athologist Signature POC Glucose 172 65 - 199 [facility] Comment: Supplemental ranges: <140 mg/dL before meals <180 mg/dL all other times of the day Specimen Anatomical Collection Method Collection Time Receive d Time (Source) Location / / Volume Laterality Blood 07/26/2022 1:52 PM 2 1:52 EST PM EST Aidee Morillo MD POINT OF CARE TEST ORDERABLE S Performing Organization Address City/State/ZIP Code Phon e Number [address] POCT Glucose (07/26/2022 11:44 AM EST) athologist Signature POC Glucose 191 65 - 199 [facility] Comment: Supplemental ranges: <140 mg/dL before meals <180 mg/dL all other times of the day Specimen Anatomical Collection Method Collection Time Receive d Time (Source) Location / / Volume Laterality Blood 07/26/2022 11:44 07/26/2022 AM EST 11:44 AM EST Aidee Morillo MD POINT OF CARE TEST ORDERABLE S Performing Organization Address City/State/[place] [address] (ABNORMAL) POCT Glucose (07/26/2022 11:15 AM EST) athologist Signature POC Glucose 209 (H) 65 - 199 [facility] Comment: Supplemental ranges: <140 mg/dL before meals <180 mg/dL all other times of the day Specimen Anatomical Collection Method Collection Time Receive d Time (Source) Location / / Volume Laterality Blood 07/26/2022 11:15 07/26/2022 AM EST 11:15 AM EST Aidee Morillo MD POINT OF CARE TEST ORDERABLE S Performing Organization Address City/State/[place] [address] (ABNORMAL) POCT Glucose (07/26/2022 10:58 AM EST) P athologist Signature POC Glucose 247 (H) 65 - 199 [facility] Comment: Supplemental ranges: <140 mg/dL before meals <180 mg/dL all other times of the day Specimen Anatomical Collection Method Collection Time Receive d Time (Source) Location / / Volume Laterality Blood 07/26/2022 10:58 07/26/2022 AM EST 10:58 AM EST Aidee Morillo MD POINT OF CARE TEST ORDERABLE S Performing Organization Address City/[facility]/[place] [address] Specimen to Pathology (07/26/2022 10:41 AM EST) Specimen Anatomical Collection Method Collection Time Receive d Time (Source) Location / / Volume Laterality AP Specimen 07/26/2022 10:41 07/26/2022 AM EST 10:41 AM EST Narrative [facility] - 07/26/2022 10:41 AM EST Specimen requisition ordered. ??Separate Pathology report to follow Aidee Morillo MD PATHOLOGY/CYTOLOGY ORDERABLE S Performing Organization Address City/[facility]/[place] [address] Surgical Pathology Report (07/26/2022 10:30 AM EST) Component Value Ref Test Analysis Performed At Patholo gist Range Method Time Signature Surgical [id number] ? Location: [facility]; SS03; A [facility] Pathology [place] Report The signing pathologist has (i) examined the relevant preparation(s) for the [facility] specimen(s) and (ii) rendered or confirmed the diagnosis(es) . HOSPITAL LABORATORY . ?Surgic al Pathology DIAGNOSIS A - Gallbladder and contents, excision: Chronic cholecystitis with t ransmural congestion and focal hemosiderin deposition in the wall. Electronically signed by: ?Cong CUMMINGS, Joanna Verified: ??08/04/2022 11:20 ??Pathologist Performed at: ??-[facility] Dept. of Pathology, [place] [address] City Routeman: Raghavendra slade MD, FCAP, ??CLIA Certificate: [id number] SPECIMEN(S) SUBMITTED A - Gallbladder & contents - perm, excision (1) CLINICAL INFORMATION Gallstones. SPECIMEN PROCESSING A - Labeled/Fixative: Gallbladder and contents, fresh. Quantity/Size: ??Single, 3.3 x 2.0 x 1.0 cm. Specimen Description: Markedly shrunken gallbladder, receive d intact. Serosa: Wright-pink, hemorrhagic Hepatic margin: Shaggy and intact Lumen contents: Bile is absent Gallstones: Absent Mucosa: Hemorrhagic, markedly denuded Wall: 0.3 cm thick, fibrotic Duct: Pinpoint. Lymph Node: Not identified. Ink Designation: The hepatic margin is inked black Sections/Processing: Route Agent sections in 1 cassettes as follows: ?A1: ??Presumed cystic duct margin and technical sales representatives m ucosa ??jnr Specimen (Source) Anatomical Collection Method Collection Time Re ceived Time Location / / Volume Laterality 07/26/2022 10:30 AM EST Aidee Morillo MD PATHOLOGY/CYTOLOGY ORDERABLE S Performing Organization Address City/State/ZIP Code Phon e Number [place] [address] (ABNORMAL) POCT Glucose (07/26/2022 10:28 AM EST) athologist Signature POC Glucose 247 (H) 65 - 199 [facility] [place] mg/dL [facility] Comment: Supplemental ranges: <140 mg/dL before meals <180 mg/dL all other times of the day Specimen Anatomical Collection Method Collection Time Receive d Time (Source) Location / / Volume Laterality Blood 07/26/2022 10:28 07/26/2022 AM EST 10:28 AM EST Aidee Morillo MD POINT OF CARE TEST ORDERABLE S Performing Organization Address City/State/[place] [address] (ABNORMAL) POCT Glucose (07/26/2022 10:01 AM EST) P athologist Signature POC Glucose 274 (H) 65 - 199 [facility] mg/dL [facility] Comment: Supplemental ranges: <140 mg/dL before meals <180 mg/dL all other times of the day Specimen Anatomical Collection Method Collection Time Receive d Time (Source) Location / / Volume Laterality Blood 07/26/2022 10:01 07/26/2022 AM EST 10:01 AM EST Aidee Morillo MD POINT OF CARE TEST ORDERABLE S Performing Organization Address City/[facility]/[place] [address] (ABNORMAL) POCT Glucose (07/26/2022 9:27 AM EST) P athologist Signature POC Glucose 259 (H) 65 - 199 [facility] mg/dL [facility] Comment: Supplemental ranges: <140 mg/dL before meals <180 mg/dL all other times of the day Specimen Anatomical Collection Method Collection Time Receive d Time (Source) Location / / Volume Laterality Blood 07/26/2022 9:27 AM 9:27 EST AM EST Aidee Morillo MD POINT OF CARE TEST ORDERABLE S Performing Organization Address City/[facility]/[place] [address] (ABNORMAL) BLOOD GAS 2 ARTERIAL (07/26/2022 8:35 AM EST) Analysis Performed At Patho logist Time Signature pH Art 7.36 7.35 - [facility] 7.45 [facility] pCO2 Art 43 35 - 45 [facility]ORY pO2 Art 144 (H) 85 - 104 [facility] HCO3 Art 23.7 20.0 - [facility] 26.0 [facility] mmol/L [facility] BE Art -2.1 -3.0 - 3.0 [facility] mmol/L [facility] Hgb Blood Gas 14.7 13.7 - [facility] 16.5 g/dL [facility] O2HB Art 98.1 (H) 94.0 - [facility] 97.0 % [facility] COHB Art 0.6 % [facility] Comment: Nonsmokers: 0.5-1.5% COHB Smokers: Variable, but usually less than 10% Toxic: 20-30% COHB Lethal: Greater than 60% COHB METHB Art 0.0 <=1.5 % [facility] Na Whole Blood 135 135 - 145 mmol/L [facility] K Whole Blood 3.9 3.5 - 5.0 mmol/L [facility] Comment: Please note: Patients with WBC >100,000 may have falsely elevated Potassium levels. Contact the Clinical Chemistry L aboratory if there are any questions. ICa Whole Blood 1.14 (L) 1.15 - 1.33 mmol/L [facility] Comment: Note: ??Total bilirubin higher than 20 m g/dL may lead to falsely low ionized calcium. CL Whole Blood 104 98 - 107 mmol/L [facility] Gluc Whole Bld 187 65 - 199 mg/dL [facility] Comment: Diabetes: >=200 mg/dL plus symp toms. Lactate WB 1.8 0.5 - 2.2 mmol/L [facility] FIO2 Art 57 % [facility] Flow Art 1.0 LPM [facility] PF Ratio Art 253 [facility] Temp Art 36.0 Celsius [facility] Specimen Anatomical Collection Method Collection Time Receive d Time (Source) Location / / Volume Laterality Blood 07/26/2022 8:35 AM 8:35 EST AM EST Aidee Morillo MD CHEMISTRY ORDERABLES Performing Organization Address City/State/ZIP [place] [address] (ABNORMAL) BLOOD GAS 2 ARTERIAL (07/26/2022 8:28 AM EST) Analysis Performed At Patho logist Time Signature pH Art 7.33 (L) 7.35 - [facility] 7.45 [facility] pCO2 Art 45 35 - 45 [facility] mmHg [facility] pO2 Art Not Perf 85 - 104 [facility] LABORATORY HCO3 Art 23.4 20.0 - [facility] 26.0 [facility] mmol/L [facility] LABORAT[facility] BE Art -2.7 -3.0 - 3.0 [facility] mmol/L [facility] Hgb Blood Gas 14.6 13.7 - [facility] 16.5 g/dL [facility] O2HB Art 96.9 94.0 - [facility] 97.0 % [facility] COHB Art 0.8 % [facility] Comment: Nonsmokers: 0.5-1.5% COHB Smokers: Variable, but usually less than 10% Toxic: 20-30% COHB Lethal: Greater than 60% COHB METHB Art 0.3 <=1.5 % [facility] Na Whole Blood 135 135 - 145 mmol/L [facility] K Whole Blood 3.8 3.5 - 5.0 mmol/L [facility] Comment: Please note: Patients with WBC >100,000 may have falsely elevated Potassium levels. Contact the Clinical Chemistry L aboratory if there are any questions. ICa Whole Blood 1.16 1.15 - 1.33 mmol/L [facility] Comment: Note: ??Total bilirubin higher than 20 m g/dL may lead to falsely low ionized calcium. CL Whole Blood 104 98 - 107 mmol/L [facility] Gluc Whole Bld 190 65 - 199 mg/dL [facility] Comment: Diabetes: >=200 mg/dL plus symp toms. Lactate WB 1.7 0.5 - 2.2 mmol/L [facility] FIO2 Art 48 % [facility] Temp Art 36.2 Celsius [facility] Specimen Anatomical Collection Method Collection Time Receive d Time (Source) Location / / Volume Laterality Blood 07/26/2022 8:28 AM 8:28 EST AM EST Aidee Morillo MD CHEMISTRY ORDERABLES Performing Organization Address City/State/ZIP Code Phon e Number [address] POCT Glucose (07/26/2022 8:22 AM EST) P athologist Signature POC Glucose 186 65 - 199 [facility] Comment: Supplemental ranges: <140 mg/dL before meals <180 mg/dL all other times of the day Specimen Anatomical Collection Method Collection Time Receive d Time (Source) Location / / Volume Laterality Blood 07/26/2022 8:22 AM 8:22 EST AM EST Aidee Morillo MD POINT OF CARE TEST ORDERABLE S Performing Organization Address City/State/ZIP Code Phon e Number [address] POCT Glucose (07/26/2022 6:35 AM EST) P athologist Signature POC Glucose 199 65 - 199 [facility] Comment: Supplemental ranges: <140 mg/dL before meals <180 mg/dL all other times of the day Specimen Anatomical Collection Method Collection Time Receive d Time (Source) Location / / Volume Laterality Blood 07/26/2022 6:35 AM 6:35 EST AM EST Aidee Morillo MD POINT OF CARE TEST ORDERABLE S Performing Organization Address City/State/[place] [address] documented in this encounter Visit Diagnoses Not on filedocumented in this encounter Admitting Diagnoses Diagnosis Cholecystitis Cholecystitis, unspecified documented in this encounter Administered Medications Inactive Administered Medications - up to 3 most recent administrations Medication Order MAR Action Action Date Dose Rate Site acetaminophen (Tylenol) tablet Given 07/27/2022 12:13 PM EST 1,0 00 mg 1,000 mg 1,000 mg, Oral, EVERY 6 HOURS SCHEDULED, First dose on Sat07/26/22 at 1200, Until Discontinued, Maximum dose of acetaminophen is 4000 mg from all sources in 24 hours. When ordered for pain, acetaminophen should be given even when other ordered pain medications are indicated. , Routine Given 07/27/2022 6:15 AM EST 1,000 mg Given 07/26/2022 11:15 PM EST 1,000 mg aspirin EC tablet 81 mg Given 07/27/2022 9:17 AM EST 81 mg 81 mg, Oral, DAILY, First dose on Sat07/27/22 at 0900, Until Discontinued, Routine atorvastatin (Lipitor) tablet 80 mg Given 07/26/2022 5:29 PM EST 80 mg 80 mg, Oral, EVERY EVENING, First dose on Sat07/26/22 at 1700, Until Discontinued, Routine BUpivacaine (pf) (Marcaine) (5 Given 07/26/2022 11:11 AM 16 mLs 19- Surgical Site mg/mL) 0.5% injection EST ONCE PRN, Starting on Sat07/26/22 at 0853, Until Sat07/27/22 at 1427, Intra-Operative (Intra-Procedure), Routine Given 07/26/2022 8:53 AM EST 14 mLs 19- S urgical Site clopidogreL (Plavix) tablet 75 mg Given 07/27/2022 9:18 AM EST 75 mg 75 mg, Oral, DAILY, First dose on Sat07/26/22 at 1700, Until Discontinued, Routine Given 07/26/2022 5:28 PM EST 75 mg dextrose 10% infusion 250 mL, at 1,000 mL/hr, Intravenous, GONZALO RY 30 MIN PRN, Starting on Sat07/26/22 at 1138, Until Sat07/27/22 at 1427, For BG 50-70 mg/dL: Oral treatment preferred: If able to drink, give 120 mL Juice or R egular (not diet) soda OR If NPO, give 15 gram glucose 40% oral gel massaged into buccal mucosa OR if unconscious or uncooperative, give 25 gram (250 mL) Dex trose 10% IV over 15 minutes per protocol OR, if no IV access, 1 mg Glucagon IM. * * For BG less than 50 mg/dL: Oral treatment preferred: If able to drink, give 240 mL Juice or Regu lar (not diet) soda OR If NPO, give 30 gram glucose 40% oral gel m assaged in buccal mucosa OR if unconscious or uncooperative, give 25 gram (250 mL) Dextrose 10% I V over 15 minutes per protocol OR, if no IV access, 1 mg Glucagon IM. Rech caden BG in 30 minutes. May repeat juice/soda, gel, dextrose or gluc agon once per episode. For persistent hypoglycemia, consider longer-acting treatment for the duration of the active insulin. enoxaparin (Lovenox) (40 mg/0.4 Given 07/26/2022 8:18 PM EST 40 mg Abdominal Tissue mL) subcutaneous injection 40 mg 40 mg, Subcutaneous, NIGHTLY, First dose on Sat07/26/22 at 2100, Until Discontinued, Routine escitalopram (Lexapro) tablet 10 mg Given 07/27/2022 9:19 AM EST 10 mg 10 mg, Oral, DAILY, First dose on Sat07/27/22 at 0900, Until Discontinued, Routine furosemide (Lasix) tablet 20 mg Given 07/27/2022 9:20 AM EST 20 mg 20 mg, Oral, DAILY, First dose on Sat07/27/22 at 0900, Until Discontinued, Routine glucagon (Glucagen) (1 mg/mL) injection solution 1 mg 1 mg, Intramuscular, EVERY 30 MIN PRN, S tarting on Sat07/26/22 at 1138, Until Sat07/27/22 at 1427, Low blood sugar, Fo r BG 50-70 mg/dL: Oral treatment preferred: If able to drink, give 120 mL Juice or R egular (not diet) soda OR If NPO, give 15 gram glucose 40% oral gel massaged into buccal mucosa OR if unconscious or uncooperative, give 25 gram (250 mL) Dex trose 10% IV over 15 minutes per protocol OR, if no IV access, 1 mg Glucagon IM. * * For BG less than 50 mg/dL: Oral treatment preferred: If able to drink, give 240 mL Juice or Regu lar (not diet) soda OR If NPO, give 30 gram glucose 40% oral gel m assaged in buccal mucosa OR if unconscious or uncooperative, give 25 gram (250 mL) Dextrose 10% I V over 15 minutes per protocol OR, if no IV access, 1 mg Glucagon IM. Rech caden BG in 30 minutes. May repeat juice/soda, gel, dextrose or gluc agon once per episode. For persistent hypoglycemia, consider longer-acting treatment for the duration of the active insulin., Routine glucose (Glutose) 40% oral geL 15-30 g of glucose, Buccal, EVERY 30 MIN PRN, Starting on Tamar 07/26/22 at 1138, Until Sat07/27/22 at 1427, Low blood mujica gar, For BG 50-70 mg/dL: Oral treatment preferred: If able to drink, give 120 mL Juice or Regu lar (not diet) soda OR If NPO, give 15 gram glucose 40% oral gel massaged into b uccal mucosa OR if unconscious or uncooperative, give 25 gr am (250 mL) Dextrose 10% IV over 15 minutes per protocol OR, if no IV access, 1 mg G lucagon IM. For BG less than 50 mg/dL: Oral treatment preferred: If able to dri nk, give 240 mL Juice or Regular (not diet) soda OR If NPO, give 30 gram glucose 40% oral gel massaged in buccal mucosa OR if unconscious or uncooperative, give 25 gr am (250 mL) Dextrose 10% IV over 15 minutes per protocol OR, if no IV access, 1 mg G lucagon IM. Recheck BG in 30 minutes. May repeat juice/soda, gel, dextrose or gluc agon once per episode. For persistent hypoglycemia, consider longer-acting treatment for the duration of the active insulin. 1 tube of Glutose-15 contains 1 5 grams of glucose (net weight of tube = 37.5 grams.), Routine insulin lispro (HumaLOG;Admelog) (100 Given 07/27/2022 9:[address] 1 Units unit/mL) subcutaneous injection vial 1-4 Units 1-4 Units, Subcutaneous, EVERY 4 HOURS SCHEDULED, First dose on Tamar 07/26/22 at 1200, Until Discontinued, CORRECTION BOLUS [1-4 Units] Sensitive Sliding Scale (BG in mg/dL): Correction factor 40 (1 unit of insulin is expected to drop the glucose 40 mg/dL) BG 160 - 200 Give 1 unit BG 201 - 240 Give 2 units BG 241 - 280 Give 3 units BG greater than 280, give 4 units and recheck BG in 2 hours. - If recheck BG is LESS than 280, give no insulin and resume schedule - If recheck BG is GREATER than 280, give 4 units and repeat BG in 2 hours (no more than 3 times) & call for new insulin orders. DO NOT hold if NPO, unless specifically directed to do so by written order. Per Blood Glucose Monitoring Policy, re-check a BG of > 240 mg/dL in 2 hours., Routine Given 07/26/2022 8:18 PM EST 1 Units Left Arm Given 07/26/2022 5:29 PM EST 1 Units LORazepam (Ativan) tablet 1 mg Given 07/26/2022 11:15 PM EST 1 mg 1 mg, Oral, 2 TIMES DAILY PRN, Starting on Sat07/26/22 at 1507, Until Sat07/27/22 at 1427, Anxiety, Routine losartan (Cozaar) tablet 50 mg Given 07/27/2022 9:21 AM EST 50 mg 50 mg, Oral, DAILY, First dose on Sat07/27/22 at 0900, Until Discontinued, Routine metoprolol succinate XL (Toprol-XL) tablet 50 Given 9:20 AM EST 50 mg mg 50 mg, Oral, DAILY, First dose on Sat07/27/22 at 0900, Until Discontinued, DO NOT CRUSH OR OPEN, Routine ondansetron (pf) (Zofran) (2 mg/mL) inje ction 4-8 mg 4-8 mg, Intravenous, EVERY 8 HOURS PRN, Starting on Tamar 07/26/22 at 1507, Until Sat07/27/22 at 1427, Nausea, Start with 4mg and if ineffective in 30 minutes, give an additional 4mg If multiple antiemetic s are ordered, give ondansetron first. ondansetron (Zofran) tablet 4-8 mg 4-8 mg, Oral, EVERY 8 HOURS PRN, Starting on 07/26 at 1507, Until Sat07/27/22 at 1427, Nausea, Vomiting, If multiple anti emetics are ordered, use ondansetron first. PO Preferred. If patient unable t o take PO, may give IV if ordered. Start with 4mg and if ineffecti ve in 45 minutes, give an additional 4mg. If unable to take PO, may give IV., Routine pantoprazole EC (Protonix) tablet 40 mg Given 07/27/2022 9:18 AM EST 40 mg 40 mg, Oral, DAILY, First dose on Sat07/27/22 at 0900, Until Discontinued sodium chloride 0.9 % (flush) (BD PosiFlush Given 07/26/2022 9:0 0 PM EST 5 mLs Normal Saline 0.9) flush 5 mL 5 mL, Intravenous, 2 TIMES DAILY, First dose on Tamar 07/26/22 at 2100, Until Discontinued, Recovery (Recovery-Hospital Unit), Routine spironolactone (Aldactone) tablet 12.5 m g Given 07/27/2022 9:21 AM EST 12.5 mg 12.5 mg, Oral, DAILY, First dose on Sat07/27/22 at 0900, Until Discontinued, DO NOT SPLIT, CRUSH OR OPEN, Routine documented in this encounter Active and Recently Administered Medications Times are shown in EST. Scheduled Medication Order 07/25/2022 07/26/2022 07/27/2022 acetaminophen (Tylenol) tablet 1,000 mg (COMPLETED) 0622 (Given - Provider: Nakia Euceda RN) 1,000 mg, Oral, ONCE, 1 dose, On Tamar 07/07 at 0645, Maximum dose of acetaminophen is 4000 mg from all sources in 24 hours. When ordered for pain, acetaminophen should be given even when other ordered pain medications are indicated. , Day of Surgery (Day of Proced ure), Routine acetaminophen (Tylenol) tablet 1,000 mg 1208 (Given - Provider: Monserrat Ness RN)1728 (Given - Provider: Rajinder Giles, LONA)2315 (Given - Provider: Cliff Lee, LONA) 0615 (Given - Provider: Cliff Lee , RN)1213 (Given - Provider: Rajinder Giles, RN) 1,000 mg, Oral, EVERY 6 HOURS SCHEDULED, First dose on Tamar 07/26/22 at 1200, Until Discontinued, Maximum dose of acetaminophen is 4000 mg from all sources in 24 hours. When ordered for pain, acetaminoph en should be given even when other order ed pain medications are indicated. 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, Indication for (Active or Suspected): Prophylaxis clopidogreL (Plavix) tablet 75 mg 1727 (Given - Provider: Rajinder Giles RN) 917 (Given - Provider: Rajinder Giles RN) 75 mg, Oral, DAILY, First dose on Sat at 1700, Until Discontinued, Routine enoxaparin (Lovenox) (40 mg/0.4 mL) subcutaneous injection 4 0 mg 2017 (Given - Provider: Cliff Lee RN) 40 mg, Subcutaneous, NIGHTLY, First dose on Sat07/26/22 at 2100, Until Discontinued, Routine escitalopram (Lexapro) tablet 10 mg 918 (Given - Provider: Rajinder Giles RN) 10 mg, Oral, DAILY, First dose on Sat at 0900, Until Discontinued, Routine furosemide (Lasix) tablet 20 mg 919 (Given - Provider: Rajinder Giles RN) 20 mg, Oral, DAILY, First dose on Sat at 0900, Until Discontinued, Routine insulin lispro (HumaLOG;Admelog) (100 un it/mL) subcutaneous injection vial 1-4 Units(Linked Group 1) 1146 (Given - Provider: Chantale Ballard RN)1728 (Given - Provider: Rajinder Giles RN)2018 (Given - Provider: Cliff Lee RN) 0000 (Not Given - Provider: Cliff lópez RN - Reason: Contraindicated)040 (Not Given - Provider: Cliff Lee RN - Reason: Contraindicated)921 (Given - Provider: Rajinder Giles RN)1200 (Due) 1-4 Units, Subcutaneous, EVERY 4 HOURS S CHEDULED, First dose on Sat07/26/22 at 1200, Until Discontinued, CORRECTION BOLUS [1-4 Units] Sensitive Sliding Scale (BG in mg/dL): Correction factor 40 (1 unit of insulin is expected to drop the glucose 40 mg/dL) BG 160 - 200 Give 1 unit BG 201 - 240 Give 2 units BG 241 - 280 Give 3 units BG greater than 280, give 4 units and recheck BG in 2 hours. - If r echeck BG is LESS than 280, give no insu tete and resume schedule - If recheck BG is GREATER than 280, give 4 units and repeat BG in 2 hours (no more than 3 times) & call for new insulin orders. DO NO T hold if NPO, unless specifically direc mick to do so by written order. Per Blood Glucose Monitoring Policy, re-check a BG of > 240 mg/dL in 2 hours., Routine losartan (Cozaar) tablet 50 mg 0 921 (Given - Provider: Rajinder Giles RN) 50 mg, Oral, DAILY, First dose on Sat at 0900, Until Discontinued, Routine metoprolol succinate XL (Toprol-XL) tablet 50 mg 919 (Given - Provider: Rajinder Giles RN) 50 mg, Oral, DAILY, First dose on Sat at 0900, Until Discontinued, DO NOT CRUSH OR OPEN, Routine pantoprazole EC (Protonix) tablet 40 mg 917 (Given - Provider: Rajinder Giles RN) 40 mg, Oral, DAILY, First dose on Sat07/27/22 at 0900, Until Di scontinued sodium chloride 0.9 % (flush) (BD PosiFlush Normal Saline 0. 9) flush 5 mL 2099 (Given - Provider: Cliff Lee RN) 0900 (Due) 5 mL, Intravenous, 2 TIMES DAILY, First dose on Sat07/26/22 at 2100, Until Discontinued, Recovery (Recovery-Hospital Unit), Routine spironolactone (Aldactone) tablet 12.5 mg 09 (Given - Provider: Rajinder Giles RN) 12.5 mg, Oral, DAILY, First dose on Sat07/27/22 at 0900, Until Discontinued, DO NOT SPLIT, CRUSH OR OPEN, Routine Continuous Medication Order 07/25/2022 07/26/2022 07/27/2022 lactated ringers infusion (CANCELED) 073 2 (New Bag - Provider: Emelia Amador CRNA)1110 (Anesthesia Volume Adjustment - Provider: Emelia Amador CRNA) 1,000 mL, at 100 mL/hr, Intravenous, CON TINUOUS, Starting on Sat07/26/22 at 0645, Until Sat07/26/22 at 1248, Day of Surgery (Day of Procedure) PRN Medication Order 07/25/2022 07/26/2022 07/27/2022 BUpivacaine (pf) (Marcaine) (5 mg/mL) 0.5% injection (CANCEL ED) 0853 (Given - Provider: Yamil Waldrop MD - Comment: trocar sites)1111 (Given - Provider: Yamil Waldrop MD) ONCE PRN, Starting on Sat07/26/22 at 08 53, Until Sat07/27/22 at 1427, Intra- Operative (Intra-Procedure), Routine dextrose 10% infusion(Linked Group 2) 250 mL, at 1,000 mL/hr, Intravenous, GONZALO RY 30 MIN PRN, Starting on Sat07/26/22 at 1138, Until Sat07/27/22 at 1427, For BG 50-70 mg/dL: Oral treatment preferred: If able to drink, give 120 mL Juice or Regular (not diet) soda OR If NPO, gi ve 15 gram glucose 40% oral gel massaged into buccal mucosa OR if unconscious or uncooperative, give 25 gram (250 mL) Dextrose 10% IV over 15 minutes per protocol OR, if no IV access, 1 mg Glucagon IM. For BG less than 50 mg/dL: Oral treatment preferred: If able to drink, give 240 mL Juice or Regular (not diet) soda OR If NPO, give 30 gram glucose 40% oral ge l massaged in buccal mucosa OR if uncons cious or uncooperative, give 25 gram (250 mL) Dextrose 10% IV over 15 minutes per protocol OR, if no IV access, 1 mg Glucagon IM. Recheck BG in 30 minutes. May repeat juice/soda, gel, dextrose or gluc agon once per episode. For persistent hypoglycemia, consider longer-acting treatment for the duration of the active insulin. glucagon (Glucagen) (1 mg/mL) injection solution 1 mg(Linked Marnie up 2) 1 mg, Intramuscular, EVERY 30 MIN PRN, S tarting on Tamar 07/26/22 at 1138, Until Sat07/27/22 at 1427, Low blood sugar, For BG 50-70 mg/dL: Oral treatment preferred: If able to drink, give 120 mL Juice or Regular (not diet) soda OR If NPO, g ashley 15 gram glucose 40% oral gel massaged into buccal mucosa OR if unconscious or uncooperative, give 25 gram (250 mL) Dextrose 10% IV over 15 minutes per protoco l OR, if no IV access, 1 mg Glucagon IM. For BG less than 50 mg/dL: Oral treatment preferred: If able to drink, give 240 mL Juice or Regular (not diet) soda OR If NPO, give 30 gram glucose 40% oral g el massaged in buccal mucosa OR if uncon scious or uncooperative, give 25 gram (250 mL) Dextrose 10% IV over 15 minutes per protocol OR, if no IV access, 1 mg Glucagon IM. Recheck BG in 30 minutes. May repeat juice/soda, gel, dextrose or glu cagon once per episode. For persistent hypoglycemia, consider longer-acting treatment for the duration of the active insulin., Routine glucose (Glutose) 40% oral geL(Linked Group 2) 15-30 g of glucose, Buccal, EVERY 30 MIN PRN, Starting on Tamar 07/26/22 at 1138, Until Sat07/27/22 at 1427, Low blood sugar, For BG 50-70 mg/dL: Oral treatment preferred: If able to drink, give 120 m L Juice or Regular (not diet) soda OR If NPO, give 15 gram glucose 40% oral gel massaged into buccal mucosa OR if unconscious or uncooperative, give 25 gram (250 mL) Dextrose 10% IV over 15 minutes per protocol OR, if no IV access, 1 mg Gluca verona IM. For BG less than 50 mg/dL: Oral treatment preferred: If able to drink, give 240 mL Juice or Regular (not diet) soda OR If NPO, give 30 gram glucose 40% oral gel massaged in buccal mucosa OR i f unconscious or uncooperative, give 25 gram (250 mL) Dextrose 10% IV over 15 minutes per protocol OR, if no IV access, 1 mg Glucagon IM. Recheck BG in 30 minut es. May repeat juice/soda, gel, dextrose or glucagon once per episode. For persistent hypoglycemia, consider longer-acting treatment for the duration of the active insulin. 1 tube of Glutose-15 conta ins 15 grams of glucose (net weight of tube = 37.5 grams.), Rout ine lidocaine (Xylocaine) 1% (10 mg/mL) injection 3 mg 3 mg (0.3 mL), Subcutaneous, ONCE PRN, 1 dose, Starting on Sat07/26/22 at 1507, Until Sat07/27/22 at 1427, for discomfort with PIV insertion, Recovery (Recovery-Hospital Unit), Routine LORazepam (Ativan) tablet 1 mg 2315 (Given - Pro vider: Cliff Lee RN) 1 mg, Oral, 2 TIMES DAILY PRN, Starting on Sat07/26/22 at 1507, Until Sat07/27/22 at 1427, Anxiety, Routine naloxone (Narcan) (0.4 mg/mL) injection 0.2 mg 0.2 mg, Intravenous, EVERY 1 MIN PRN, St arting on Sat07/26/22 at 1507, Until Sat07/27/22 at 1427, Opioid Reversal, If respiratory rate less than 6 OR the patient is unable to arouse OR SpO2 is declini ng, Give for respiratory rate of less th an or equal to 6 and patient is heavily sedated or unarousable. May repeat every 60 seconds to increase respiratory rate. DO NOT exceed 2 mg total dose., Recovery (Recovery-Hospital Unit), Routine ondansetron (pf) (Zofran) (2 mg/mL) injection 4-8 mg(Linked Grou p 3) 4-8 mg, Intravenous, EVERY 8 HOURS PRN, Starting on Sat07/26/22 at 1507, Until Sat07/27/22 at 1427, Nausea, Start with 4mg and if ineffective in 30 minutes, give an additional 4mg If multiple antiemetics are ordered, give ondansetron first. ondansetron (Zofran) tablet 4-8 mg(Linked Group 3) 4-8 mg, Oral, EVERY 8 HOURS PRN, Startin g on Tamar 07/26/22 at 1507, Until Sat07/27/22 at 1427, Nausea, Vomiting, If multiple antiemetics are ordered, use ondansetron first. PO Preferred. If patient unable to take PO, may give IV if ordere d. Start with 4mg and if ineffective in 45 minutes, give an additional 4mg. If unable to take PO, may give IV., Routine polyethylene glycoL (Miralax) packet 17 g 17 g, Oral, DAILY PRN, Starting on Tamar 1 09/25/21 at 1507, Until Sat07/27/22 at 1427, Constipation, Administer if no bowel movement within 48 hours to achieve: (1) One bowel movement at least every 48 ho urs, AND (2) without straining. If multi ple PRN bowel medications ordered, start with polyethylene glycoL, then lactulose, then oral bisacodyL, then bisacodyL suppository, then magnesium citrate, then t ap water enema. Multiple medications may be given concomitantly for constipation., Routine sodium chloride 0.9 % (flush) (BD PosiFlush Normal Saline 0.9) f lush 5-20 mL 5-20 mL, Intravenous, EVERY 1 MIN PRN, S tarting on Tamar 07/26/22 at 1507, Until Sat07/27/22 at 1427, flush, Flush pertains to all indwelling lines. Flush per protocol found in the job aid using the link provided on this medication record., Re covery (Recovery-Hospital Unit), Routine Linked Groups Order Group 1: POCT Fingerstick Glucose (CANCELED) Routine, EVERY 4 HOURS, First occurrence on Tamar 07/26/22 at 1140, Until Specified
Consider choosing EVERY 4 HOURS as frequency for: - Type 1 Diabetes - At least 24 hours after coming off an ins ulin drip - At least 24 hours after admi ssion for DKA - Hypoglycemia unawareness - Patients who are otherwise unstable Select the same frequency for the correction bolus insulin order And insulin lispro (HumaLOG;Admelog) (100 unit/mL) subcutaneous injection vial 1-4 UnitsJump to med 1-4 Units, Subcutaneous, EVERY 4 HOURS S CHEDULED, First dose on Sat07/26/22 at 1200, Until Discontinued
CORRECTION BOLUS [1-4 Units] Sensitive Sliding Scale (BG in mg/dL): Correct ion factor 40 (1 unit of insulin is expe cted to drop the glucose 40 mg/dL) BG 160 - 200 Give 1 unit BG 201 - 240 Give 2 units BG 241 - 280 Give 3 units &nbsp ;BG greater than 280, give 4 units and r echeck BG in 2 hours. - If recheck BG is LESS than 280, give no insulin and resume schedule - If recheck BG is GREATER than 280, give 4 units a nd repeat BG in 2 hours (no more than 3 times) & call for new insulin orders. DO NOT hold if NPO, unless specifically directed to do so by written order.&a mp;nbsp; Per Blood Gluc ose Monitoring Policy, re-check a BG of > 240 mg/dL in 2 hours.
Routine Group 2: glucose (Glutose) 40% oral geLJump to med 15-30 g of glucose, Buccal, EVERY 30 MIN PRN, Starting on Sat07/26/22 at 1138, Until Sat07/27/22 at 1427, Low blood sugar
For BG 50-70 mg/dL: &n bsp;Oral treatment preferred: If able to drink, give 120 mL Juice or Regular (not diet) soda OR If NPO, give 15 gram glucose 40% oral gel massaged into buccal mucosa OR if unconscious or uncooperative, give 25 gram (250 mL) Dextrose 10% IV ov er 15 minutes per protocol OR, if no IV access, 1 mg Glucagon IM. For BG less than 50 mg/dL: Oral treatment p referred: If able to drink, give 240 mL Juice or Regular (not diet) soda OR If NPO, give 30 gram glucose 40% oral gel massaged in buccal mucosa OR if unconscious or uncooperative, give 25 gram (250 mL) Dextrose 10% IV over 15 minutes per prot ocol OR, if no IV access, 1 mg Glucagon IM. Recheck BG in 30 minutes. May repeat juice/soda, gel, dextrose or glucagon once per episode.& nbsp; For persistent hypoglycemi a, consider longer-acting treatment for the duration of the active insulin. 1 tube of Glutose-15 contains 15 grams of glucose (net weight of tube = 37.5 grams.)
Routine Or dextrose 10% infusionJump to med 250 mL, at 1,000 mL/hr, Intravenous, GONZALO RY 30 MIN PRN, Starting on Tamar 07/26/22 at 1138, Until 07/27/22 at 1427
For BG 50-70 mg/dL: Oral treatment preferred: If able to drink, give 120 mL Juice or Regular (not diet) soda OR If NPO, give 15 gram glucose 40% oral gel massaged into buccal mucosa OR if unconscious or uncooperative, give 25 gram (250 mL) Dextrose 10% IV over 15 mi nutes per protocol OR, if no IV access, 1 mg Glucagon IM. For BG less than 50 mg/dL: Oral treatment preferred : If able to drink, give 240 mL Juice or Regular (not diet) soda OR If NPO, give 30 gram glucose 40% oral gel massaged in buccal mucosa OR if unconscious or uncooperative, give 25 gram (250 mL) Dextrose 10% IV over 15 minutes per protocol OR, if no IV access, 1 mg Glucagon IM. Recheck BG in 30 minutes. May repeat juice/soda, gel, dextrose or glucagon once per episode. &am p;nbsp; For persistent hypoglycemia, c onsider longer-acting treatment for the duration of the active insulin.
Or glucagon (Glucagen) (1 mg/mL) injection solution 1 mgJump to med 1 mg, Intramuscular, EVERY 30 MIN PRN, S tarting on Tamar 07/26/22 at 1138, Until Sat07/27/22 at 1427, Low blood sugar
For BG 50-70 mg/dL: Ora l treatment preferred: If able to drink, give 120 mL Juice or Regular (not diet) soda OR If NPO, give 15 gram glucose 40% oral gel massaged into buccal mucosa OR if unconscious or uncooperative, give 25 gram (250 mL) Dextrose 10% IV over 15 m inutes per protocol OR, if no IV access, 1 mg Glucagon IM. For BG less than 50 mg/dL: Oral treatment preferre d: If able to drink, give 240 mL Juice o r Regular (not diet) soda OR If NPO, give 30 gram glucose 40% oral gel massaged in buccal mucosa OR if unconscious or uncooperative, give 25 gram (250 mL) Dextros e 10% IV over 15 minutes per protocol OR , if no IV access, 1 mg Glucagon IM. Recheck BG in 30 minutes. May repeat juice/soda, gel, dextrose or glucagon once per episode. &a mp;nbsp; For persistent hypoglycemia, consider longer-acting treatment for the duration of the active insulin.
Routine Group 3: ondansetron (Zofran) tablet 4-8 mgJump to med 4-8 mg, Oral, EVERY 8 HOURS PRN, Startin g on Tamar 07/26/22 at 1507, Until Sat07/27/22 at 1427, Nausea, Vomiting
If multiple antiemetics are ordered, use ondansetron first. PO Pref erred. If patient unable to take PO, may give IV if ordered. Start with 4mg and if ineffective in 45 minutes, give an additional 4mg. If unable to take PO, may give IV.
Routine Or ondansetron (pf) (Zofran) (2 mg/mL) injection 4-8 mgJump to med 4-8 mg, Intravenous, EVERY 8 HOURS PRN, Starting on Tamar 07/26/22 at 1507, Until 07/27/22 at 1427, Nausea
Start with 4mg and if ineffective in 30 minutes, give an additional 4mg If multiple antiemetics are ordered, giv e ondansetron first.
documented in this encounter Care Teams Project Engineer Relationship Specialty Start Date End Date Navin Suoza MD PCP - General Family Medicine 02/19/22 [address] [place] [address] documented as of this encounter
--- OUTSIDE RECORDS SUMMARY | 2022-08-22 09:59 | XMS_ITS | Encounter Summary ---
:1950 Author Organization [facility] [place] [address] Care Team Providers Name Role Phone Navin Souza MD Primary Care Provider Reason for Referral Diagnostic Test (Routine) - Closed Specialty Diagnoses / Procedures Referred By Contact Refer red To Contact Radiology Diagnoses Cholecystitis Agustin Monae MD [facility] Interventionl Rad Procedures IR Biliary Tube Check/Change/Remove [facility] [place] [id number] [place] [id number] Referral ID Status Reason Start Date Expiration Date Visits V isits Requested Authorized [id number] Closed Specialty 04/11/2022 10/12/2023 1 1 Service Requested Reason for Visit Diagnostic Test (Routine) - Closed Specialty Diagnoses / Procedures Referred By Contact Refer red To Contact Radiology Diagnoses Cholecystitis Agustin Monae MD [facility] Interventionl Rad Procedures IR Biliary Tube Check/Change/Remove [facility] [place] [address] [place] [address] Referral ID Status Reason Start Date Expiration Date Visits V isits Requested Authorized [id number] Closed Specialty 04/11/2022 10/12/2023 1 1 Service Requested Encounter Details Date Type Department Care Team Description 06/01/2022 Hospital Encounter Radiology at [facility] Isaías, Cholecystitis; [facility] MD Lois Acute systolic congestive [place] [address] [place], [place] [phone] [id number] Social History Tobacco Use Types Packs/Day Years Used Date Smoking Tobacco: Former Cigarettes Quit : 03/17/1986 Smokeless Tobacco: Never Alcohol Use Standard Drinks/Week Comments Yes 0 (1 standard drink = 0.6 oz pure alcoho l) Sex Assigned at Date Recorded Not on file documented as of this encounter Last Filed Vital Signs Vital Sign Reading Time Taken Comments Blood Pressure 144/75 06/01/2022 11:00 AM EDT Pulse 62 06/01/2022 11:00 AM EDT Temperature 36 ??C (96.8 ??F) 06/01/2022 9:39 AM EDT Respiratory Rate 14 06/01/2022 11:00 AM EDT Oxygen Saturation 96% 06/01/2022 11:00 AM EDT Inhaled Oxygen Concentration - - Weight - - Height - - Body Mass Index - - documented in this encounter Discharge Instructions Discharge InstructionsRudy Rodriguez RN - 06/01/2022 10:10 AM EDT INTERVENTIONAL RADIOLOGY DRAIN CARE INSTRUCTIONS Drains help to keep fluid from collecting by removing the extra blood and fluid from under the skin or from an abscess within the body. A drain is temporary. It stays in place until the drainage has slowed down or stopped. Your Provider will decide when each drain should be removed. This is usually after each drain has 30cc or less in 24 hours for 2-3 days in a row. You will then be scheduled for what is called a Sinogram to check and see if the fluid collection has gotten smaller. How do I care for the drains at home? Pin your drain/s to your clothing by using a safety pin through the plastic loop on the top of the bulb. If the drain is not attached to your clothing, it may pullout from under your skin. Also, a drain usually feels more comfortable when it???s attached. To carefor the drain at home, you will have to empty the drain, ???strip?? the drain tubing, and change the dressing if applicable. * See the following information on instructions on how to do this. You will go home with a dressing over the insertion site. Usually, Visiting Nurses are set up to show you how to change the dressing and care for the drain. They may teach a family member if they are willing. The dressing needs to only be change once a week provided there is no leakage around the tube. What problems may I have with my drain? The bulb is not compressed- The bulb may not be squeezed tightly enough, the plug may not be closed securely, or the tube has slipped out a bit and is leaking. Follow the instructions on how to empty the drain. If the bulb remains expanded, then notify your doctor or nurse during business hours. No drainage or sudden decrease in amount of drainage- This may be due to a plug in the drain. Pleasenotify your doctor or nurse during business hours. The tube accidentally falls out- If this happens, place a dry gauze dressing over the drain site andnotify your doctor or nurse during business hours. Increased redness, swelling, or heat around the tube insertion site- This may be a sign of infection. Take your temperature: if it is higher than 101F or 38.8C, call your doctor or nurse immediately. Otherwise, notify your doctor or nurse during business hours and keep the dressing clean and dry. How to Empty Your Drain and flush drain Note: Wash your hands thoroughly before emptying your drain(s). Unpin the drain from your clothing. 1. Turn the white stopcock so it is not parallel (in line) with the tubing. 2. Unscrew the tubing with the bulb attached from stopcock. Make sure you keep everything clean. 3. Attach the syringe with sterile saline to the stopcock. 4. Inject saline per MD order, 3-5 cc's. Forward flush only, do not aspirate back. 5. Re-attach the tubing with the bulb to the stopcock. 6. Invert the bulb and pull open the plug. 7. Have the plastic measuring cup from the hospital ready to collect and measure the drainage. Please measure the output at the same time every 24 hours and record the amount. 8. Turn the drain upside down and squeeze the contents of the bulb into the measuring cup. Be sure to empty the bulb as completely as possible. Flush the contents in the toilet. 9. Use the drain output log chart to record the amount of drainage twice a day or any time the bulb is full. Record the total for 24 hours for each drain you have. 10. If you have more than one drain, remember to record the drainage from each drain separately. 11. To prevent infection, do not let the stopper or top of the bottle touch the measuring cup or anyother surface. Use one hand to squeeze all of the air from the drain. With the drain still squeezed, use your otherhand to replace the top. This creates the suction necessary to remove the fluids from your body. Pin the drain back on your clothing to avoid pulling it out accidently. Wash your hands again. Remember to wash your hands before and after the procedure to reduce the riskof infection. Flushing the Drain: Your doctor may want the drain to be flushed once or twice daily to keep the fluid from plugging the drain. Flush the drain with 3-5 cc daily with the syringes supplied to you. FORWARD FLUSH ONLY, DO NOT ASPIRATE BACK. When to call the Interventional Radiology Department: Please call with any questions or concerns. Ifit is during regular office hours, please call [phone]. If it is after regular office hours, oron weekends or holidays, please call [phone] and ask to speak to the Shank Threader on callfor Interventional Radiology. XX You have received medication during your procedure to help keep you comfortable. These medications affect judgement and reaction time. We recommend that you do not drive, operate equipment, sign any important documents, or smoke unattended for 24 hours following your procedure. Because of the sedation, be careful on stairs, as you may be unsteady on your feet. You may resume your regular diet as tolerated. IV site -- slight redness, or tenderness is normal, you can use a warm compress. If tenderness and redness increases or foul drainage occurs, please contact your M. D. Revised 07/02/19 Drainage Record NAME: Date of Surgery: Date: Time: If more than one drain, which one: Drainage Amount (per drain) Total Amount (per drain; in 24 hours) documented in this encounter Medications at Time of Discharge Medication Sig Dispensed Refills Start Date End Date acetaminophen (Tylenol) Take 3 tablets by 30 tablet 1 04/11 325 mg Tablet mouth every 8 hours as needed for Pain. empagliflozin (Jardiance) Take 1 tablet by 30 tablet 11 02/14 10 mg Tablet mouth daily. nitroGLYcerin (Nitrostat) Place 1 tablet 30 tablet 0 2021 0.4 mg Tablet, Sublingual under the tongue every 5 minutes as needed for Chest pain. atorvastatin (Lipitor) 80 Take 1 tablet by 90 tablet 3 02/14 mg Tablet mouth every evening. aspirin EC 81 mg Tablet, Take 1 tablet by 90 tablet 3 03/01 Delayed Release (E.C.) mouth daily. clopidogreL (Plavix) 75 mg Take 1 tablet by 90 tablet 3 Tablet mouth daily. furosemide (Lasix) 20 mg Take 1 tablet by 90 tablet 3 03/01 Tablet mouth daily. spironolactone (Aldactone) Take 0.5 tablets by 90 tablet 1 03/01/2022 25 mg Tablet mouth daily. escitalopram (Lexapro) 10 Take 10 mg by mouth 0 0 11/17/2021 mg Tablet daily. glimepiride (AMARYL) 4 mg Take 4 mg by mouth 0 Tablet 2 times daily. LORazepam (Ativan) 1 mg Take 1 mg by mouth 0 03/12/2021 Tablet 2 times daily as needed. losartan (Cozaar) 50 mg Take 50 mg by mouth 0 Tablet daily. metoprolol succinate XL Take 50 mg by mouth 0 10/2020 (Toprol-XL) 50 mg Tablet daily. Sustained Release 24 hr RABEprazole (ACIPHEX) 20 Take 20 mg by mouth 0 mg Tablet, Delayed Release daily. (E.C.) exenatide microspheres 0 04/06/2021 (Bydureon BCise) 2 mg/0.85 mL Auto-Injector gabapentin (Neurontin) 300 Take 300 mg by 0 10/1107/25/2022 mg Capsule mouth 3 times daily. documented as of this encounter Progress Notes Rudy Rodriguez RN - 05/30/2022 2:25 PM EDT ANGIO NURSING DATABASE Name: GILLIAN PENDLETON Date of : 1950 AGE: 72 y.o. [address]: [address] [place] [address] (home) Mobile: Telephone Information: Referring Provider: Agustin Monae REASON FOR VISIT: Order Questions Answers Where will study be performed? [facility] Radiology [120] Is the patient on anticoagulant / antiplatelet therapy ? No Reason for exam and clinical history: Recent NSTEMI with EF 17% with acute cholecytitis s/p irwin tube on 03/31 for check #1 Planned procedure: Cholecystostomy Catheter Evaluation and Exchange Labs to be performed day of procedure: No labs Sedation: Fentanyl only Prophylactic antibiotic : None Contrast: Omnipaque Additional medications for procedure: Lidocaine Planned access site: Cholecyststomy Catheter Position: Supine Consent: Completed Medications to discontinue (and days held): None Case Urgency:: G- Other (non E or F elective cases) Allergies Allergen Reactions ??? Corticosteroids (Glucocorticoids) Rash Pertinent PMH: Patient Active Problem List Diagnosis Code ??? NSTEMI (non-ST elevated myocardial infarction) I21.4 ??? Acute systolic congestive heart failure I50.21 ??? Cholecystitis K81.9 Date/Procedure Meds Given/Comments 04/10/2022 Cholecystostomy tube placement Fentanyl 100mcg IV Midazolam 2mg IV ??06/01/22 Cholecystostomy tube exchange 8.5 F pigtail to gravity. ??Fentanyl 150 mcg, IV. ? 1017 to procedure room IR via stretcher. Onto table supine. All monitors, O2, safety strap in place.Meds per protocol. Laboratory Results: Lab Results Component Value Date CREATININE 0.63 (L) 04/11/2022 Lab Results Component Value Date K 3.6 04/11/2022 Lab Results Component Value Date PLATELET 135 (L) 04/11/2022 documented in this encounter Plan of Treatment Not on filedocumented as of this encounter Procedures Procedure Name Priority Date/Time Associated Diagnosis Comme nts IR BILIARY TUBE Routine 06/01/2022 11:00 Cholecystitis Results for this CHECK/CHANGE/REMOVE AM EDT procedur e are in the results section. documented in this encounter Results IR Biliary Tube Check/Change/Remove (06/01/2022 11:00 AM EDT) Anatomical Region Laterality Modality Abdomen X-Ray Angiography Specimen (Source) Anatomical Location Collection Method / Collectio n Time Received Time / Laterality Volume Narrative 06/01/2022 4:15 PM EDT INTERVENTIONAL RADIOLOGY PROCEDURE NOTE Procedure: Cholecystostomy tube exchange and evaluation Indication for Procedure: Acute cholecys titis status post cholecystostomy catheter placement 03/31/2022, routine dr kwan catheter evaluation Informed Consent: After discussing risks (including infection, trauma / damage to surrounding structures, hemorr david, non-success, amongst others), and benefits of the procedure, the patient consented to the procedure. Monitoring and Sedation Details: Due to the painful nature of the procedure, patient received split doses of intravenous fentanyl from the IR nurse while pulse, pressure,??end tid al CO2 parameters and oxygen saturation were continuously monitored. Procedure Events and Technique: A standard time-out was conducted just b efore the start of the procedure to verify all regalado aspects; including the correct patient and planned procedure, procedure location, informed consent, and all relevant critical information, all of which were correct. The patient was positioned supine on the procedure table. ??The cholecystostomy catheter was cleaned and prepped in typical sterile fashion; maximal sterile barrier techniq ue was used throughout. ?? Contrast injection via the cholecystosto my catheter was performed under fluoroscopy. ??Due to difficult injectio n, the catheter was then exchanged for a 8.5 [place] Candelaria-Joaquin catheter over an 0.035 Amplatz wire. ?? Position was confirmed under fluoroscopy . ??Catheter was secured in position with a 2-0 nylon suture. ??The patient tolerated the procedure well. Medications: Fentanyl 150 mcg IV, ??1% Lidocaine <10 cc subcutaneous. Antibiotic Prophylaxis: none Contrast: 10 cc Omnipaque 350, via baltazar ter. Fluoroscopic Time: 2.4 minutes, 29 mGray . Estimated Blood Loss: < 5 cc. Complications: ??No immediate. Findings: ? ? Percutaneous cholecystostomy catheter positioned within the gallbladder. ? ? Contrast injection demonstrates opacified opacified cystic duct, however no communication with the common bile du ct identified. ? ? Exchange for 10 [place] Candelaria-Joaquin catheter, positioned within the gallbladder lumen Impression: 1) Obstructed cystic duct. 2) Cholecystostomy catheter exchanged fo r 10 [place] Candelaria-Joaquin. Plan: - To angio recovery, may discharge when criteria met - Routine cholecystostomy catheter evalu ation in 2 months (placeholder), order placed and IR equipment monitor phototypesetting notified. Resident/Fellow: Toby Eaton MD [facility] Attending: Dr. Ching Lois Metz MD IMG IR ORDERABLES documented in this encounter Visit Diagnoses Diagnosis Cholecystitis Cholecystitis, unspecified Acute systolic congestive heart failure Acute systolic heart failure documented in this encounter Administered Medications Inactive Administered Medications - up to 3 most recent administrations Medication Order MAR Action Action Date Dose Rate Site fentaNYL (pf) (50 mcg/mL) Given 06/01/2022 10:44 AM EDT 25 mcg multi-dose injection 25-50 mcg 25-50 mcg, Intravenous, EVERY 3 MIN PRN, Starting on Sat06/01/22 at 0938, Until 06/02/22 at 0434, Pain, per unit protocol, - Start dose 50 mcg (reduce dose to 25 mcg if history of sedation sensitivity). - Titration dose 25-50 mcg IV, (based on patient response) every 3 minutes PRN, to maintain procedural pain less than 2 per pain Scale. Maximum dose: 50 mcg/dose, 250 mcg/hour For use in Interventional Radiology (IR) only for procedural sedation with direct provider supervision and verbal order., Angio/IR (Intra-Procedure), Routine Given 06/01/2022 10:39 AM EDT 25 mcg Given 06/01/2022 10:34 AM EDT 50 mcg lidocaine (Xylocaine) 1% (10 mg/mL) injection Given 10:45 AM EDT 5 mg 10 mg 10 mg, Subcutaneous, ONCE, 1 dose, On Sat06/01/22 at 1000, For use in Interventional Radiology (IR) only for procedure with direct provider supervision and verbal order., Angio/IR (Intra-Procedure), Routine documented in this encounter Care Teams Bpm Architect Relationship Specialty Start Date End Date Navin Souza MD PCP - General Family Medicine 02/19/22 [address] [place] [address] documented as of this encounter
--- OUTSIDE RECORDS SUMMARY | 2022-08-22 09:59 | XMS_ITS | Encounter Summary ---
:1950 Author Organization [facility] [place] [address] Care Team Providers Name Role Phone Navin Souza MD Primary Care Provider Reason for Visit Diagnostic Test (Routine) - Canceled Specialty Diagnoses / Procedures Referred By Contact Refer red To Contact Radiology Diagnoses Cholecystitis Toby Eaton MD [facility] Interventionl Rad Procedures IR Biliary Tube Check/Change/Remove [facility] [place] [address] [place] [address] Referral ID Status Reason Start Expiration Visits Visits Date Date Requested Authorized [id number] Canceled Specialty 06/01/2022 11/30/2023 1 1 Service Requested Encounter Details Date Type Department Care Team Description 08/08/2022 Hospital Encounter Radiology at [facility] [place] [facility] (P-NO [facility] MD Lois LONGER NEEDED) Formerly [facility] [id number] [place], [place] [phone] Social History Tobacco Use Types Packs/Day Years Used Date Smoking Tobacco: Former Cigarettes Quit : 03/17/1986 Smokeless Tobacco: Never Alcohol Use Standard Drinks/Week Comments Yes 35 (1 standard drink = 0.6 oz pure alcoh ol) Sex Assigned at Date Recorded Not on file documented as of this encounter Medications at Time of Discharge [...] (Lexapro) Take 10 mg by mouth 0 12/2021 10 mg Tablet daily. glimepiride (AMARYL) 4 Take 4 mg by mouth 2 0 mg Tablet times daily. LORazepam (Ativan) 1 mg Take 1 mg by mouth 2 0 Tablet times daily as needed. losartan (Cozaar) 50 mg Take 50 mg by mouth 0 Tablet daily. metoprolol succinate XL Take 50 mg by mouth 0 10/2020 (Toprol-XL) 50 mg Tablet daily. Sustained Release 24 hr RABEprazole (ACIPHEX) 20 Take 20 mg by mouth 0 mg Tablet, Delayed daily. Release (E.C.) documented as of this encounter Progress Notes Melissa Simmons RN - 08/03/2022 2:22 PM EST ANGIO NURSING DATABASE Name: Fuad Pendleton Date of : 1950 AGE: 72 y.o. [facility] [place] [address] (home) Mobile: Telephone Information: Referring Provider: Toby Eaton REASON FOR VISIT: Order Questions Answers Where will study be performed? [facility] Radiology [120] Is the patient on anticoagulant / antiplatelet therapy ? No Reason for exam and clinical history: Cholecystostoy tube check/exchange (placeholder), last exchange 06/01 Planned procedure: Routine Perc Oneyda tube exchange Labs to be performed day of procedure: No labs Sedation: Moderate (Conscious sedation) Prophylactic antibiotic : None Contrast: Omnipaque Additional medications for procedure: Lidocaine Position: Supine Consent: Pending Medications to discontinue (and days held): None Case Urgency:: G- Other (non E or F elective cases) Allergies Allergen Reactions ??? Adhesive ??? Corticosteroids (Glucocorticoids) Rash Pertinent PMH: Patient Active Problem List Diagnosis Code ??? NSTEMI (non-ST elevated myocardial infarction) I21.4 ??? Acute systolic congestive heart failure I50.21 ??? Cholecystitis K81.9 Date/Procedure Meds Given/Comments 04/10/2022 Cholecystostomy tube placement Fentanyl 100mcg IV Midazolam 2mg IV ??06/01/22 Cholecystostomy tube exchange 8.5 F pigtail to gravity. ??Fentanyl 150 mcg, IV. ? Laboratory Results: Lab Results Component Value Date CREATININE 0.63 (L) 04/11/2022 Lab Results Component Value Date K 3.6 04/11/2022 Lab Results Component Value Date PLATELET 135 (L) 04/11/2022 documented in this encounter H&P Notes Alex Miller MD - 07/09/2022 12:18 PM EDT Images from the original note were not included. INTERVENTIONAL RADIOLOGY FOCUSED H&P and PRE-PROCEDURE NOTE: PCP: Navin Souza MD Referring Provider: Isaías Planned Procedure: Planned procedure: Routine Perc Oneyda tube exchange Procedure Indication: Oneyda tube for routine change Procedure Request: Procedure request received through the Interventional Radiology eD order queue. Presenting Diagnosis/ Complaint: Fuad Pendleton is a 72 y.o. male with chronic Oneyda tube, poor surgicalcandidate, for routine change Past Medical/Surgical History: Patient Active Problem List Diagnosis Code ??? NSTEMI (non-ST elevated myocardial infarction) I21.4 ??? Acute systolic congestive heart failure I50.21 ??? Cholecystitis K81.9 Past Medical History: Diagnosis Date ??? Anxiety ??? Diabetes mellitus ??? GERD (gastroesophageal reflux disease) ??? HLD (hyperlipidemia) ??? Hypertension ??? NSTEMI (non-ST elevated myocardial infarction) Past Surgical History: Procedure Laterality Date ??? IR BILIARY TUBE CHECK/CHANGE/REMOVE 06/01/2022 IR Biliary Tube Check/Change/Remove 06/01/2022 Mike Ching MD [facility] INTERVENTIONL RAD ??? IR CHOLECYSTOSTOMY TUBE PLACEMENT 04/10/2022 IR Cholecystostomy Tube Placement 04/10/2022 Mike Ching MD [facility] INTERVENTIONL RAD Medications: Current Outpatient Medications on File Prior to Encounter Medication Sig Dispense Refill ??? acetaminophen (Tylenol) 325 mg Tablet Take 3 tablets by mouth every 8 hours as needed for Pain. 30 tablet 1 ??? empagliflozin (Jardiance) 10 mg Tablet Take 1 tablet by mouth daily. 30 tablet 11 ??? nitroGLYcerin (Nitrostat) 0.4 mg Tablet, Sublingual Place 1 tablet under the tongue every 5 minutes as needed for Chest pain. 30 tablet 0 ??? atorvastatin (Lipitor) 80 mg Tablet Take 1 tablet by mouth every evening. 90 tablet 3 ??? aspirin EC 81 mg Tablet, Delayed Release (E.C.) Take 1 tablet by mouth daily. 90 tablet 3 ??? clopidogreL (Plavix) 75 mg Tablet Take 1 tablet by mouth daily. 90 tablet 3 ??? furosemide (Lasix) 20 mg Tablet Take 1 tablet by mouth daily. 90 tablet 3 ??? spironolactone (Aldactone) 25 mg Tablet Take 0.5 tablets by mouth daily. 90 tablet 1 ??? escitalopram (Lexapro) 10 mg Tablet Take 10 mg by mouth daily. ??? exenatide microspheres (Bydureon BCise) 2 mg/0.85 mL Auto-Injector ??? gabapentin (Neurontin) 300 mg Capsule Take 300 mg by mouth 3 times daily. ??? glimepiride (AMARYL) 4 mg Tablet Take 4 mg by mouth 2 times daily. ??? LORazepam (Ativan) 1 mg Tablet Take 1 mg by mouth 2 times daily as needed. ??? losartan (Cozaar) 50 mg Tablet Take 50 mg by mouth daily. ??? metoprolol succinate XL (Toprol-XL) 50 mg Tablet Sustained Release 24 hr Take 50 mg by mouth daily. ??? RABEprazole (ACIPHEX) 20 mg Tablet, Delayed Release (E.C.) Take 20 mg by mouth daily. No current facility-administered medications on file prior to encounter. Allergies: Adhesive and Corticosteroids (glucocorticoids) Social History and Habits: Social History Socioeconomic History ??? Marital status: Spouse name: Not on file ??? Number of children: Not on file ??? Years of education: Not on file ??? Highest education level: Not on file Occupational History ??? Not on file Tobacco Use ??? Smoking status: Former Smoker Types: Cigarettes Quit date: 03/17/1986 Years since quittin.3 ??? Smokeless tobacco: Never Used Substance and Sexual Activity ??? Alcohol use: Yes ??? Drug use: Never ??? Sexual activity: Not Currently Other Topics Concern ??? Not on file Social History Narrative ??? Not on file Social Determinants of Health Financial Resource Strain: Not on file Food Insecurity: Not on file Transportation Needs: Not on file Physical Activity: Not on file Housing Stability: Not on file Significant Family History: No family history on file. Pertinent ROS: as per HPI Labs: Lab Results Component Value Date WBC 6.7 04/11/2022 ANC 12.06 (H) 04/09/2022 HCT 38.8 (L) 04/11/2022 PLATELET 135 (L) 04/11/2022 BUN 15 04/11/2022 CREATININE 0.63 (L) 04/11/2022 ALKPHOS 61 04/10/2022 AST 11 04/10/2022 ALBUMIN 2.9 (L) 04/10/2022 BILIDIR 0.3 04/10/2022 BILITOT 1.0 04/10/2022 ALT 11 04/10/2022 PROT 6.0 (L) 04/10/2022 K 3.6 04/11/2022 Imaging: Physical Exam: Pending (to be performed in angio the day of procedure) ASA: Pending (to be assessed in angio the day of procedure) Mallampati Class: Pending (to be assessed in angio the day of procedure) Assessment: 72 y.o. male w/ diabetes, hypertension, and recent NSTEMI on 02/19 and new heart failure with EF of 17% status post PCI. Poor surgical candidate for Chholecytectomy, Oneyda tube placed 04/06, exhanged 06/01/22, now for routine change. Reviewed with Attending: Other: martha Plan: Planned procedure: Routine Perc Oneyda tube exchange Labs to be performed day of procedure: No labs Sedation: Moderate (Conscious sedation) Prophylactic antibiotic : None Contrast: Omnipaque Additional medications for procedure: Lidocaine Position: Supine Consent: Pending Medications to discontinue (and days held): None Case Urgency:: G- Other (non E or F elective cases) 07/09/2022 documented in this encounter Plan of Treatment Not on filedocumented as of this encounter Visit Diagnoses Not on filedocumented in this encounter Care Teams [employer] Relationship Specialty Start Date End Date Navin Souza MD PCP - General Family Medicine 02/19/22 [address] [place] [address] documented as of this encounter
--- OUTSIDE RECORDS SUMMARY | 2022-08-22 09:59 | XMS_ITS | Encounter Summary ---
:1950 Author Organization [facility] [place] [address] Care Team Providers Name Role Phone Navin Souza MD Primary Care Provider Reason for Visit Auth/Cert Specialty Diagnoses / Procedures Referred By Contact Refer red To Contact Diagnoses Cholecystitis GALLSTONES Aidee Morillo MD [facility] Procedures PRO LAP, CHOLECYSTECTOMY/GRAPH LAPAROSCOPIC CHOLECYSTECTOMY WITH CHOLANGIOGRAM (WRVU 11.47) [facility] [place] [address] Referral ID Status Reason Start Date Expiration Date Visits Requ ested Visits Authorized [id number] 1 1 Encounter Details Date Type Department Care Team Description 07/26/2022 - Hospital Encounter Short Stay Unit at Aidee Morillo , 07/27/[address] [facility] [address] [place] [phone] Social History Tobacco Use Types Packs/Day Years Used Date Smoking Tobacco: Former Cigarettes Quit : 03/17/1986 Smokeless Tobacco: Never Alcohol Use Standard Drinks/Week Comments Yes 35 (1 standard drink = 0.6 oz pure alcoh ol) Sex Assigned at Date Recorded Not on file documented as of this encounter Last Filed Vital Signs Vital Sign Reading Time Taken Comments Blood Pressure 142/78 07/27/2022 9:12 AM EST Pulse 70 07/26/2022 12:30 PM EST Temperature 36.7 ??C (98.1 ??F) 07/27/2022 9:12 AM EST Respiratory Rate 16 07/27/2022 9:12 AM EST Oxygen Saturation 95% 07/27/2022 9:12 AM EST Inhaled Oxygen Concentration - - [...] nondistended. Incisions CDI with overlying dermabond. : Opllack removed after surgery, adequate UOP since surgery. [...] Time Provider Department Center 08/08/2022 1:30 PM [facility] IR ROOM 1 [facility] Rad ? Pain Control: Non-steroidal anti-inflammatories (NSAIDS) [...] appointments: 1.?You will have follow-up appointments at [facility] as indicated in the ???Future Appointments and [...] on the next business day.?? Please call [phone] ifyou do not hear from us by that time, as your timely follow-up is very important to us. ?? Your care was managed by the Trauma and Acute Care Surgery Team at [facility]. If you have any questions or concerns, please feel free to contact us. Provider Contact Information: General Surgery: [facility] (after business hours): ?? CC: Primary Care Physician: Navin Souza MD ? General Instructions None ? Signed: Perry Browning MD General Surgery ACS pager [phone] ?? Primary Samira Physician: Navin Souza MD [address] / [facility] [address] ?? I have independently reviewed the relevant [...] documented in this encounter Discharge Instructions [facility] - 07/27/2022 9:54 AM EST Discharge [...] Time Provider Department Center 08/08/2022 1:30 PM [facility] IR ROOM 1 [facility] Rad Pain Control: Non-steroidal anti-inflammatories (NSAIDS) such [...] 1. You will have follow-up appointments at [facility] as indicated in the ???Future Appointments and [...] on the next business day. Please call [phone] if you do not hear from us by that time, as your timely follow-up is very important to us. Your care was managed by the Trauma and Acute Care Surgery Team at [facility]. If you have any questions or concerns, please feel free to contact us. Provider Contact Information: General Surgery: [facility] (after business hours): CC: Primary Care Physician: Navin Souza MD AttachmentsThe following attachments cannot be sent through Care Everywhere. Cholecystectomy: General Info (Citizen Of [place])Cholecystectomy: Post-op (Citizen Of [place]) documented in this encounter Medications at Time [...] documented as of this encounter Progress Notes Rajnider Giles RN - 07/27/2022 12:26 PM EST [facility] Short Stay Unit Discharge Note All [...] pt need to f-u with surgeon or PROFILE SAW OPERATOR (please indicate reason if attending provider): PROFILE SAW OPERATOR How soon should ACS f/u be? 3-4 [...] Name: MD Perry Pablo MD 07/27/2022 Cliff Barriga RN - 07/27/2022 6:55 AM ESTSummary: Progress Note [facility] Short Stay Unit Shift Note The [...] 16 133/74 97 % 2 L/min NC 07/26/222002 36.8 ??C (98.2 ??F) 64 bpm -- 16 148/83 96 % 2 L/min NC 07/26/22 2316 36.9 ??C (98.4 ??F) 65 bpm -- -- 153/83 97 % 2 L/min NC 07/27/22401 37 ??C (98.6 ??F) 71 bpm -- [...] y.o. male s/p Procedure(s): LAPAROSCOPIC CHOLECYSTECTOMY (WRVU 10.47) S: Pt denies N/V, chest pain, SOB, [...] y.o. male s/p Procedure(s): LAPAROSCOPIC CHOLECYSTECTOMY (WRVU 10.47) ?? S: Patient is doing well and [...] patient. Break coverage by Monserrat Galeas RN [phone] 1230 PACU D/C criteria met 1320 Hand off to LONA Calvillo [facility] documented in this encounter H&P Notes Lenny Matos MD - 07/26/2022 6:54 AM EST [facility] General Surgery History and Physical Fuad Pendleton [...] chest pain and shortness of breath. Signficant PM/ Past Medical History: Diagnosis Date ??? Anxiety ??? Diabetes mellitus ??? GERD (gastroesophageal reflux disease) ??? HLD (hyperlipidemia) ??? Hypertension ??? NSTEMI (non-ST elevated myocardial infarction) Past Surgical History: Procedure Laterality Date ??? IR BILIARY TUBE CHECK/CHANGE/REMOVE 06/01/2022 IR Biliary Tube Check/Change/Remove 06/01/2022 Mike Ching MD [facility] INTERVENTIONL RAD ??? IR CHOLECYSTOSTOMY TUBE PLACEMENT 04/10/2022 IR Cholecystostomy Tube Placement 04/10/2022 Mike Ching MD [facility] INTERVENTIONL RAD Current Facility-Administered Medications: ??? [...] Morillo MD - 07/26/2022 10:59 AM EST [facility] Operative Note Patient Name: Fuad Pendleton : [id number] MR#: [id number] Case Date: 07/26/2022 Surgeon: Surgeon(s) and Role: * Aidee Morillo MD - Primary * Yaiml Waldrop MD Preoperative diagnosis: GALLSTONES Postoperative diagnosis: GALLSTONES Procedure(s) (LRB): LAPAROSCOPIC [facility]LECYSTECTOM[facility]GRAM [facility] (N/A) Findings: 1. Adhesions of [...] Signature POC Glucose 169 65 - 199 [facility] mg/dL [facility] Comment: Supplemental ranges: <140 mg/dL before meals <180 mg/dL all other times of the day Specimen Anatomical Collection Method Collection Time Receive d Time (Source) Location / / Volume Laterality Blood 07/27/2022 7:52 AM 7:52 EST AM EST Aidee Morillo MD POINT OF CARE TEST ORDERABLE S Performing Organization Address City/State/ZIP [place] [address] POCT Glucose (07/27/2022 4:02 AM EST) athologist Signature POC Glucose 126 65 - 199 [place] mg/dL [facility] Comment: Supplemental ranges: <140 mg/dL before meals <180 mg/dL all other times of the day Specimen Anatomical Collection Method Collection Time Receive d Time (Source) Location / / Volume Laterality Blood 07/27/2022 4:02 AM 4:02 EST AM EST Aidee Morillo MD POINT OF CARE TEST ORDERABLE S Performing Organization Address City/State/ZIP Code Phon e Number [address] POCT Glucose (07/26/2022 11:12 PM EST) athologist Signature POC Glucose 99 65 - 199 [place] mg/dL [facility] Comment: Supplemental ranges: <140 mg/dL before meals <180 mg/dL all other times of the day Specimen Anatomical Collection Method Collection Time Receive d Time (Source) Location / / Volume Laterality Blood 07/26/2022 11:12 07/26/2022 PM EST 11:12 PM EST Aidee Morillo MD POINT OF CARE TEST ORDERABLE S Performing Organization Address City/State/ZIP Code Phon e Number [address] POCT Glucose (07/26/2022 8:06 PM EST) athologist Signature POC Glucose 180 65 - 199 [facility] [place] mg/dL [facility] Comment: Supplemental ranges: <140 mg/dL before meals <180 mg/dL all other times of the day Specimen Anatomical Collection Method Collection Time Receive d Time (Source) Location / / Volume Laterality Blood 07/26/2022 8:06 PM 8:06 EST PM EST Aidee Morillo MD POINT OF CARE TEST ORDERABLE S Performing Organization Address City/State/ZIP Code Phon e Number [address] POCT Glucose (07/26/2022 4:09 PM EST) athologist Signature POC Glucose 178 65 - 199 [place] mg/dL [facility] Comment: Supplemental ranges: <140 mg/dL before meals <180 mg/dL all other times of the day Specimen Anatomical Collection Method Collection Time Receive d Time (Source) Location / / Volume Laterality Blood 07/26/2022 4:09 PM 2 4:09 EST PM EST Aidee Morillo MD POINT OF CARE TEST ORDERABLE S Performing Organization Address City/State/ZIP Code Phon e Number [address] POCT Glucose (07/26/2022 1:52 PM EST) athologist Signature POC Glucose 172 65 - 199 [facility] [place] mg/dL [facility] Comment: Supplemental ranges: <140 mg/dL before meals <180 mg/dL all other times of the day Specimen Anatomical Collection Method Collection Time Receive d Time (Source) Location / / Volume Laterality Blood 07/26/2022 1:52 PM 2 1:52 EST PM EST Aidee Morillo MD POINT OF CARE TEST ORDERABLE S Performing Organization Address City/State/ZIP Code Phon e Number [address] POCT Glucose (07/26/2022 11:44 AM EST) athologist Signature POC Glucose 191 65 - 199 [place] mg/dL [facility] Comment: Supplemental ranges: <140 mg/dL before meals <180 mg/dL all other times of the day Specimen Anatomical Collection Method Collection Time Receive d Time (Source) Location / / Volume Laterality Blood 07/26/2022 11:44 07/26/2022 AM EST 11:44 AM EST Aidee Morillo MD POINT OF CARE TEST ORDERABLE S Performing Organization Address City/State/[place] [address] (ABNORMAL) POCT Glucose (07/26/2022 11:15 AM EST) athologist Signature POC Glucose 209 (H) 65 - 199 [place] mg/dL [facility] Comment: Supplemental ranges: <140 mg/dL before meals <180 mg/dL all other times of the day Specimen Anatomical Collection Method Collection Time Receive d Time (Source) Location / / Volume Laterality Blood 07/26/2022 11:15 07/26/2022 AM EST 11:15 AM EST Aidee Morillo MD POINT OF CARE TEST ORDERABLE S Performing Organization Address City/State/[place] [address] (ABNORMAL) POCT Glucose (07/26/2022 10:58 AM EST) P athologist Signature POC Glucose 247 (H) 65 - 199 [facility] mg/dL [facility] Comment: Supplemental ranges: <140 mg/dL before meals <180 mg/dL all other times of the day Specimen Anatomical Collection Method Collection Time Receive d Time (Source) Location / / Volume Laterality Blood 07/26/2022 10:58 07/26/2022 AM EST 10:58 AM EST Aidee Morillo MD POINT OF CARE TEST ORDERABLE S Performing Organization Address City/[facility]/[place] [address] Specimen to Pathology (07/26/2022 10:41 AM EST) Specimen Anatomical Collection Method Collection Time Receive d Time (Source) Location / / Volume Laterality AP Specimen 07/26/2022 10:41 07/26/2022 AM EST 10:41 AM EST Narrative [facility] - 07/26/2022 10:41 AM EST Specimen requisition ordered. ??Separate Pathology report to follow Aidee Morillo MD PATHOLOGY/CYTOLOGY ORDERABLE S Performing Organization Address City/State/[place] [address] Surgical Pathology Report (07/26/2022 10:30 AM EST) Component Value Ref Test Analysis Performed At Patholo gist Range Method Time Signature Surgical [id number] ? Location: SSU; SS03; A [facility] Pathology [place] Report The signing pathologist has (i) examined the relevant preparation(s) for the [facility] specimen(s) and (ii) rendered or confirmed the diagnosis(es) . HOSPITAL LABORATORY . ?Surgic al Pathology DIAGNOSIS A - Gallbladder and contents, excision: Chronic cholecystitis with t ransmural congestion and focal hemosiderin deposition in the wall. Electronically signed by: ?Cong CUMMINGS, Joanna Verified: ??08/04/2022 11:20 ??Pathologist Performed at: ??-[facility] Dept. of Pathology, [place] [address] Enamel Sprayer: Raghavendra slade MD, FCAP, ??CLIA Certificate: [id number] SPECIMEN(S) SUBMITTED A - Gallbladder & contents [...] The hepatic margin is inked black Sections/Processing: Business Office Specialist sections in 1 cassettes as follows: ?A1: ??Presumed cystic duct margin and delivery representative m ucosa ??jnr Specimen (Source) Anatomical Collection Method Collection Time Re ceived Time Location / / Volume Laterality 07/26/2022 10:30 AM EST Aidee Morillo MD PATHOLOGY/CYTOLOGY ORDERABLE S Performing Organization Address City/State/ZIP Code Phon [place] [address] (ABNORMAL) POCT Glucose (07/26/2022 10:28 AM EST) athologist Signature POC Glucose 247 (H) 65 - 199 [place] mg/dL [facility] Comment: Supplemental ranges: <140 mg/dL before meals <180 mg/dL all other times of the day Specimen Anatomical Collection Method Collection Time Receive d Time (Source) Location / / Volume Laterality Blood 07/26/2022 10:28 07/26/2022 AM EST 10:28 AM EST Aidee Morillo MD POINT OF CARE TEST ORDERABLE S Performing Organization Address City/State/[place] [address] (ABNORMAL) POCT Glucose (07/26/2022 10:01 AM EST) P athologist Signature POC Glucose 274 (H) 65 - 199 [place] mg/dL [facility] Comment: Supplemental ranges: <140 mg/dL before meals <180 mg/dL all other times of the day Specimen Anatomical Collection Method Collection Time Receive d Time (Source) Location / / Volume Laterality Blood 07/26/2022 10:01 07/26/2022 AM EST 10:01 AM EST Aidee Morillo MD POINT OF CARE TEST ORDERABLE S Performing Organization Address City/State/[place] [address] (ABNORMAL) POCT Glucose (07/26/2022 9:27 AM EST) P athologist Signature POC Glucose 259 (H) 65 - 199 [place] mg/dL [facility] Comment: Supplemental ranges: <140 mg/dL before meals <180 mg/dL all other times of the day Specimen Anatomical Collection Method Collection Time Receive d Time (Source) Location / / Volume Laterality Blood 07/26/2022 9:27 AM 9:27 EST AM EST Aidee Morillo MD POINT OF CARE TEST ORDERABLE S Performing Organization Address City/State/[place] [address] (ABNORMAL) BLOOD GAS 2 ARTERIAL (07/26/2022 8:35 AM EST) Analysis Performed At Patho logist Time Signature pH Art 7.36 7.35 - [facility] 7.45 [facility] pCO2 Art 43 35 - 45 [facility] LABORATORY pO2 Art 144 (H) 85 - 104 [facility]ORATORY HCO3 Art 23.7 20.0 - [facility] 26.0 [facility] mmol/L [facility] BE Art -2.1 -3.0 - 3.0 [facility] mmol/L [facility] Hgb Blood Gas 14.7 13.7 - [facility] 16.5 g/dL [facility] O2HB Art 98.1 (H) 94.0 - [facility] 97.0 % [facility] COHB Art 0.6 % [facility] Comment: Nonsmokers: 0.5-1.5% COHB Smokers: Variable, but usually less than 10% Toxic: 20-30% COHB Lethal: Greater than 60% COHB METHB Art 0.0 <=1.5 % [facility] Na Whole Blood 135 135 - 145 mmol/L [facility] K Whole Blood 3.9 3.5 - 5.0 mmol/L [facility] Comment: Please note: Patients with WBC >100,000 may have falsely elevated Potassium levels. Contact the Clinical Chemistry L aboratory if there are any questions. ICa Whole Blood 1.14 (L) 1.15 - 1.33 mmol/L [facility] Comment: Note: ??Total bilirubin higher than 20 m g/dL may lead to falsely low ionized calcium. CL Whole Blood 104 98 - 107 mmol/L [facility] Gluc Whole Bld 187 65 - 199 mg/dL [facility] Comment: Diabetes: >=200 mg/dL plus symp toms. Lactate WB 1.8 0.5 - 2.2 mmol/L [facility] FIO2 Art 57 % [facility] Flow Art 1.0 LPM [facility] PF Ratio Art 253 [facility] Temp Art 36.0 Celsius [facility] Specimen Anatomical Collection Method Collection Time Receive d Time (Source) Location / / Volume Laterality Blood 07/26/2022 8:35 AM 8:35 EST AM EST Aidee Morillo MD CHEMISTRY ORDERABLES Performing Organization Address City/State/ZIP [place] [address] (ABNORMAL) BLOOD GAS 2 ARTERIAL (07/26/2022 8:28 AM EST) Analysis Performed At Patho logist Time Signature pH Art 7.33 (L) 7.35 - [facility] 7.45 [facility] pCO2 Art 45 35 - 45 [facility] mmHg [facility] pO2 Art Not Perf 85 - 104 [facility] LABORATORY HCO3 Art 23.4 20.0 - [facility] 26.0 [facility] mmol/L [facility] BE Art -2.7 -3.0 - 3.0 [facility] mmol/L [facility] Hgb Blood Gas 14.6 13.7 - [facility] 16.5 g/dL [facility] O2HB Art 96.9 94.0 - [facility] 97.0 % [facility] COHB Art 0.8 % [facility] Comment: Nonsmokers: 0.5-1.5% COHB Smokers: Variable, but usually less than 10% Toxic: 20-30% COHB Lethal: Greater than 60% COHB METHB Art 0.3 <=1.5 % [facility] Na Whole Blood 135 135 - 145 mmol/L [facility] K Whole Blood 3.8 3.5 - 5.0 mmol/L [facility] Comment: Please note: Patients with WBC >100,000 may have falsely elevated Potassium levels. Contact the Clinical Chemistry L aboratory if there are any questions. ICa Whole Blood 1.16 1.15 - 1.33 mmol/L [facility] Comment: Note: ??Total bilirubin higher than 20 m g/dL may lead to falsely low ionized calcium. CL Whole Blood 104 98 - 107 mmol/L [facility] Gluc Whole Bld 190 65 - 199 mg/dL [facility] Comment: Diabetes: >=200 mg/dL plus symp toms. Lactate WB 1.7 0.5 - 2.2 mmol/L [facility] FIO2 Art 48 % [facility] Temp Art 36.2 Celsius [facility] Specimen Anatomical Collection Method Collection Time Receive d Time (Source) Location / / Volume Laterality Blood 07/26/2022 8:28 AM 8:28 EST AM EST Aidee Morillo MD CHEMISTRY ORDERABLES Performing Organization Address City/State/ZIP Code Phon e Number [address] POCT Glucose (07/26/2022 8:22 AM EST) P athologist Signature POC Glucose 186 65 - 199 [facility] mg/dL [facility] Comment: Supplemental ranges: <140 mg/dL before meals <180 mg/dL all other times of the day Specimen Anatomical Collection Method Collection Time Receive d Time (Source) Location / / Volume Laterality Blood 07/26/2022 8:22 AM 8:22 EST AM EST Aidee Morillo MD POINT OF CARE TEST ORDERABLE S Performing Organization Address City/State/ZIP Code Phon e Number [address] POCT Glucose (07/26/2022 6:35 AM EST) P athologist Signature POC Glucose 199 65 - 199 [facility] Comment: Supplemental ranges: <140 mg/dL before meals <180 mg/dL all other times of the day Specimen Anatomical Collection Method Collection Time Receive d Time (Source) Location / / Volume Laterality Blood 07/26/2022 6:35 AM 2 6:35 EST AM EST Aidee Morillo MD POINT OF CARE TEST ORDERABLE S Performing Organization Address City/State/[place] [address] documented in this encounter Visit Diagnoses Diagnosis Cholecystitis Cholecystitis, unspecified documented in this encounter Admitting Diagnoses Diagnosis Cholecystitis Cholecystitis, unspecified documented in this encounter Administered Medications Inactive Administered Medications - up to 3 most recent administrations Medication Order MAR Action Action Date Dose Rate Site acetaminophen (Tylenol) tablet Given 07/26/2022 6:22 AM EST 1,00 0 mg 1,000 mg 1,000 mg, Oral, ONCE, 1 dose, On Tamar 07/26/22 at 0645, Maximum dose of acetaminophen is 4000 mg from all sources in 24 hours. When ordered for pain, acetaminophen should be given even when other ordered pain medications are indicated. , Day of Surgery (Day of Procedure), Routine acetaminophen (Tylenol) tablet 1,000 mg Given 07/27/2022 12:13 PM EST 1,000 mg 1,000 mg, Oral, EVERY 6 [...] mg, Oral, EVERY EVENING, First dose on Tamar 07/26/22 at 1700, Until Discontinued, Routine clopidogreL (Plavix) tablet 75 mg Given 07/27/2022 9:18 AM EST 75 mg 75 mg, Oral, DAILY, First dose on Sat07/26/22 at 1700, Until Discontinued, Routine Given 07/26/2022 5:28 PM EST 75 mg dextrose 10% infusion 250 mL, at 1,000 mL/hr, Intravenous, GONZALO RY 30 MIN PRN, Starting on Tamar 07/26/22 at 1138, Until Sat07/27/22 at 1427, For [...] EVERY 4 HOURS SCHEDULED, First dose on Sat07/26/22 at [...] Oral, 2 TIMES DAILY PRN, Starting on Tamar 07/26/22 at 1507, Until Sat07/27/22 at 1427, Anxiety, [...] Oral, EVERY 8 HOURS PRN, Starting on Tamar 07/26 at 1507, Until Sat07/27/22 at 1427, [...] 07/27/2022 acetaminophen (Tylenol) tablet 1,000 mg (COMPLETED) 06 (Given - Provider: Nakia Euceda RN) 1,000 [...] Provider: Emelia Amador CRNA) 2 g, Intravenous, TELECOM ANALYST TO O.R., 1 dos e, On Sat07/26/22 at 0715, Administer over 30 Minutes, 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 9) flush 5 mL 2100 (Given - Provider: Cliff Lee RN) 0900 [...] 100 mL/hr, Intravenous, CON TINUOUS, Starting on Tamar 07/26/22 at 0645, Until Sat07/26/22 at 1248, Day [...] Tamar 07/26/22 at 1138, Until Sat07/27/22 at 1427
For BG 50-70 mg/dL: Oral [...] first.
documented in this encounter Care Teams Fishing Tool Supervisor Relationship Specialty Start Date End Date Navin Souza MD PCP - General Family Medicine 02/19/22 [address] [place] [address] documented as of this encounter
--- OUTSIDE RECORDS SUMMARY | 2022-08-22 09:59 | XMS_ITS | Encounter Summary ---
:1950 Author Organization [facility] [place] [address] Care Team Providers Name Role Phone Navin Souza MD Primary Care Provider Reason for Visit Reason Comments Follow-up Encounter Details Date Type Department Care Team Description 06/01/2022 Office Visit General Surgery at Bj Calzada, Jordi ecystostomy tube [facility] dysfunction, subsequent [facility] [address] [place] GENER[place] SURGERY [address] [place] [address] [phone] Social History Tobacco Use Types Packs/Day Years Used Date Smoking Tobacco: Former Cigarettes Quit : 03/17/1986 Smokeless Tobacco: Never Alcohol Use Standard Drinks/Week Comments Yes 0 (1 standard drink = 0.6 oz pure alcoho l) Sex Assigned at Date Recorded Not on file documented as of this encounter Last Filed Vital Signs Vital Sign Reading Time Taken Comments Blood Pressure - - Pulse - - Temperature - - Respiratory Rate - - Oxygen Saturation - - Inhaled Oxygen Concentration - - Weight 105.1 kg (231 lb 11.2 oz) 06/01/2022 12:43 PM EDT Height 193 cm (6' 3.98) 06/01/2022 12:43 PM EDT Body Mass Index 28.22 06/01/2022 12:43 PM EDT documented in this encounter Progress Notes Bj Calzada MD - 06/01/2022 1:00 PM EDT [facility] NOTE Patient Name: Fuad Pendleton Patient Age: 72 y.o. Reason for Visit: follow up after cholecystostomy tube placement Interval History: 72 yo male s/p NSTEMI 02/19/22 treated with PCI with need for ASA and plavix and initial poor EF of 17%. He developed epigastric and lower sub sternal pain on 04/08 and was evaluated at . He had acute cholecystitis seen on CT and Cardiology recommended cholecystostomy tube and waitingon any surgical intervention. Repeat TTE at that time showed an EF improved to 45%. He has over all been feeling well at home. No pain with eating. His cholecystostomy tube has remained open but drains< 5 mL at day. He has had no episodes of RUQ, epigastric or lower sub sternal chest pain. No f/c.No yellowing of the skin or eyes, no dark tea colored urine or barillas colored stools. Exam: Ht 193 cm (6' 3.98) Wt 105.1 kg (231 lb 11.2 oz) BMI 28.22 kg/m?? , Body mass index is 28.22 kg/m??. Physical Exam: General: NAD, A&Ox3 HEENT: normocephalic, anicteric sclerae Abd: soft, non-tender, cholecystostomy tube in place Imaging: Cholecystostomy tube study 06/01/22 Findings: ?? Percutaneous cholecystostomy catheter positioned within the gallbladder. ?? Contrast injection demonstrates opacified opacified cystic duct, however no communication with the common bile duct identified. ?? Exchange for 10 Kazakh Candelaria-Joaquin catheter, positioned within the gallbladder lumen ?? Impression: 1) Obstructed cystic duct. 2) Cholecystostomy catheter exchanged for 10 Kazakh Candelaria-Joaquin. ?? Plan: - To angio recovery, may discharge when criteria met - Routine cholecystostomy catheter evaluation in 2 months (placeholder), order placed and IR cw operator notified. Assessment and Plan: 72 yo male with cholecystostomy tube in place with minimal drainage over the past few weeks and no pain. Cholecystostomy tube study today showed opacification of the cystic duct but no emptying into the CBD or duodenum. There were no clear stones seen on CT in March or the irwin tube study today. Discussed options with Mr Pendleton including continued drainage of the gallbladder with irwin tube study repeated in 2 months vs attempted capping now given no pain and no output from the tube. If he has no pain over the next 1-2 weeks can safely remove the irwin tube without need for repeat cholecystostomy tube study. Based on Cardiology's recommendations from March he would be far enough out from his NSTEMI to safely proceed with cholecystectomy if needed sometime in June. Mr Pendleton would like to avoid surgry if at all possible. After discussion of the options, risks and benefits elected to proceed with capping the irwin tube today and follow up in one week for possible removal. Follow Up: 06/08 [facility] clinic documented in this encounter Plan of Treatment Not on filedocumented as of this encounter Visit Diagnoses Diagnosis Cholecystostomy tube dysfunction, subseq uent encounter documented in this encounter Care Teams Repair Miller Relationship Specialty Start Date End Date Navin Souza MD PCP - General Family Medicine 02/19/22 [address] [place] [address] documented as of this encounter
--- OUTSIDE RECORDS SUMMARY | 2022-08-22 09:59 | XMS_ITS | Encounter Summary ---
:1950 Author Organization [facility] [place] [address] Care Team Providers Name Role Phone Navin Souza MD Primary Care Provider Encounter Details Date Type Department Care Team Description 07/23/2022 Telephone Pre-Admission Testin g at [facility] [place] [address] Social History Tobacco Use Types Packs/Day Years Used Date Smoking Tobacco: Former Cigarettes Quit : 03/17/1986 Smokeless Tobacco: Never Alcohol Use Standard Drinks/Week Comments Yes 0 (1 standard drink = 0.6 oz pure alcoho l) Sex Assigned at Date Recorded Not on file documented as of this encounter Progress Notes Elenita Marin RN - 07/23/2022 3:37 PM EST Perioperative care clinic - T/C to patient regarding holding Jardiance x 3 days prior to procedure. His surgery is currently scheduled for 07/26/22. I spoke with patient - he stated has held Jardiance since Saturday 07/21, as his original procedure date was for 07/24. Patient also instructed to hold PM dose of Glimepiride on day prior to surgery (07/25). Patient voices good understanding of instruction. documented in this encounter Plan of Treatment Not on filedocumented as of this encounter Visit Diagnoses Not on filedocumented in this encounter Care Teams Ortho/Prosthetic Aide Relationship Specialty Start Date End Date Navin Souza MD PCP - General Family Medicine 02/19/22 [address] [place] [address] documented as of this encounter
--- OUTSIDE RECORDS SUMMARY | 2022-08-22 09:59 | XMS_ITS | Encounter Summary ---
:1950 Author Organization [facility] [place] [address] Care Team Providers Name Role Phone Navin Souza MD Primary Care Provider Reason for Visit Auth/Cert Specialty Diagnoses / Procedures Referred By Contact Refer red To Contact Diagnoses Cholecystitis GALLSTONES Bj Calzada MD [facility] Procedures PRO LAP, CHOLECYSTECTOMY/GRAPH LAPAROSCOPIC CHOLECYSTECTOMY WITH CHOLANGIOGRAM (WRVU 11.47) [facility] [place] [address] Referral ID Status Reason Start Date Expiration Date Visits Requ ested Visits Authorized [id number] 1 1 Encounter Details Date Type Department Care Team Description 07/26/2022 Anesthesia Event Main Operating Room Delfino John MD [facility] [place] [address] [place] [address] [phone] Anesthesia Record Procedure Summary Procedure Name Responsible Anesthesia Start Anesthesia Stop Anesthesiologist Time Time LAPAROSCOPIC Delfino Lind MD 07/26/22 0732 07/26/22 1 118 CHOLECYSTECTOMY (WRVU 10.47) (Abdomen) Events Date Time Event Comment 07/26/2022 0714 0732 AN Verify 0732 Start 0732 An Start Data 0748 An Induction 0751 An Intubation 0752 Anesthesia Ready 0831 Skin Incision 1104 Extubation/LMA Out 1109 an stop data 1118 Recovery or ICU Handoff Patient care was transferred to the destination unit staff after review of the patient's medica l history, current anesthetic/surgi [place] status and plan, according to the Provider Handoff Checklist. 1118 Stop Name Total fentaNYL 200 mcg Propofol 200 mg Rocuronium 160 mg PHENYLephrine 120 mcg Ondansetron 4 mg ceFAZolin (Ancef) 2 g vial attach to sodium chloride 0 .9% 100 mL Mini-Bag 2 g Plus Sugammadex 250 mg PHENYLephrine INF 1,380 mcg Insulin Regular Human 2 Units Insulin Regular INF 7.68 Units lactated ringers infusion 400 mL Agents Name O2 Air N2O Sevoflurane (et) Blood No blood administrations on file. Lines, Drains, and Airways Type Details Placement Removal PIV 07/26/22; (prior to PACU 07/26/22 0000 by arrival); median vein Alba Ballard, (underside of arm), left; RN ofif-lje-dxiute catheter system; 18 gauge PIV 07/26/22; 0629; basilic 07/26/22 0629 by Ok vein (medial side of arm)Nakia, RN left; gnjh-owt-nsyubk catheter system; Anatomical Landmarks; US Not Used; 20 gauge; Erick Euceda RN; distraction, tolerated well, appears comfortable Incision 07/26/22; 0830; Bilateral, 07/26/22 0830 by anterior; abdomen; Agustin Buckley, laparoscopic punctures RN (specify); trocars (x3) ETT Mask Ventilation: Adjunct 07/26/22 0751 by Perry , 07/26/22 1104 by (2) (2 handed mask due to JO Mares, JO Mares); ETT Type: Cuffed, Oral; ETT Size: 8 mm; Mac Blade: 4; Notes: Asleep, Pre-O2, Cricoid Pressure, Stylette; Attempts: 1; Laryngoscopy Grade: 1; ETT Placement Verified By: Auscultation, Capnometry, Visual; Secured at Teeth: 24 cm; Inserted by: Finn HALE Arterial Line 07/26/22; 0755; radial 07/26/22 0755 by Perry, 1 09/25/21 1209 by artery, left; 20 gauge; JO Mares Amanda C, RN continuous blood pressure monitoring, frequent blood gas measurement; Emelia Amador CRNA; Sterile Prep, Sterile Gloves; 07/26/22; 1209 documented in this encounter Social History Tobacco Use Types Packs/Day Years Used Date Smoking Tobacco: Former Cigarettes Quit : 03/17/1986 Smokeless Tobacco: Never Alcohol Use Standard Drinks/Week Comments Yes 35 (1 standard drink = 0.6 oz pure alcoh ol) Sex Assigned at Date Recorded Not on file documented as of this encounter OR Notes Anesthesia Postprocedure Evaluation - Delfino Lind MD - 07/26/2022 1:09 PM EST Department of Anesthesiology Post-procedure Note Patient: Fuad Pendleton Procedure Summary Date: 07/26/22 Room / Location: [address] MAIN OR Anesthesia Start: 731 Anesthesia Stop: 1117 Procedure: LAPAROSCOPIC CHOLECYSTECTOMY (WRVU 10.47) (N/A Abdomen) Diagnosis: (GALLSTONES) Surgeons: Bj Calzada MD Responsible Provider: Delfino Lind MD Anesthesia Type: general ASA Status: 3 All Anesthesia Providers: Anesthesiologist: Delfino Lind MD BUDGET MANAGER: Emelia Amador CRNA Student Nurse Lead Bi Developer: Finn Amanda Vitals Value Taken Time BP 130/76 07/26/22 1230 Temp 36.6 ??C (97.9 ??F) 07/26/22 1230 Pulse 67 07/26/22 1249 Resp 11 07/26/22 1249 SpO2 97 % 07/26/22 1308 Pain Level Vitals shown include unvalidated device data. Patient Location: PACU/[facility] Level of Consciousness: Conscious but Sleepy Pain Management: Satisfactory Analgesia PONV: None Cardiovascular Status: At Baseline and Hemodynamically Stable Respiratory Status: At Baseline and Room Air Postoperative Fluid Status: Intravascular EUvolemia Possible Anesthetic Complications: NONE apparent at time of evaluation Final Primary Anesthesia Type: General (The anesthetic type performed was the same as planned.) Comments: Delfino Lind MD Anesthesia Preprocedure Evaluation - Delfino Lind MD - 07/25/2022 2:15 PM EST Pre-Anesthesia Evaluation for: Fuad Pendleton a 72 y.o. male. Procedure(s): LAPAROSCOPIC [facility] Patient Active Problem List Diagnosis Date Noted ??? Cholecystitis 04/09/2022 ??? Acute systolic congestive heart failure 02/21/2022 ??? NSTEMI (non-ST elevated myocardial infarction) 02/20/2022 Past Medical History: Diagnosis Date ??? Anxiety ??? Diabetes mellitus ??? GERD (gastroesophageal reflux disease) ??? HLD (hyperlipidemia) ??? Hypertension ??? NSTEMI (non-ST elevated myocardial infarction) Past Surgical History: Procedure Laterality Date ??? IR BILIARY TUBE CHECK/CHANGE/REMOVE 06/01/2022 IR Biliary Tube Check/Change/Remove 06/01/2022 Mike Ching MD [facility] INTERVENTION[facility] RAD ??? IR CHOLECYSTOSTOMY TUBE PLACEMENT 04/10/2022 IR Cholecystostomy Tube Placement 04/10/2022 Mike Ching MD [facility] INTERVENTIONL RAD Social History Tobacco Use ??? Smoking status: Former Smoker Types: Cigarettes Quit date: 03/17/1986 Years since quittin.3 ??? Smokeless tobacco: Never Used Substance Use Topics ??? Alcohol use: Yes Alcohol/week: 35.0 standard drinks Types: 35 Cans of beer per week Social History Substance and Sexual Activity Drug Use Yes ??? Types: Marijuana Comment: not for 2 months Allergies Allergen Reactions ??? Adhesive ??? Corticosteroids (Glucocorticoids) Rash Medications: MAR and/or home medications have been reviewed. Physical Exam: Preprocedure Vitals Current as of 07/25/22 1415 No BP, pulse, respiration, SpO2, or temperature recorded. Height: Weight: BMI: IBW: Airway Assessment: Mallampati: III TM distance: >3 FB Neck ROM: full Cardiovascular Assessment: Rhythm: regular Rate: normal Pulmonary Assessment: unlabored breathing Dental Assessment: Misc Assessment: IV access: Peripheral line Last Filed Perioperative Cognitive Screening Value Time User 4AT TOTAL Score: 0 04/11/2022 9:00 AM Noris Cason RN Anesthesia Plan: ASA 3 general, with a(n) intravenous induction 72 yo M for Lap Oneyda with Intraop Cholangiograms. Hx of CAD with NSTEMI and CHF (Last TTE 04/06 Summary-The LV is moderately dilated with mildly reduced systolic function. The estimated LVEF is 45% with mild global hypokinesis. Normal RV size and function. There is no hemodynamically significant valvular disease. NIDDM, Htn, Hld, GERD Allergy to Adhesive and Corticosteroids Plan PO tylenol, IV, GA/ETT ?? Region - Other Informed Consent: Anesthetic plan and risks discussed with patient. Use of blood products discussed with patient who consented to blood products. Plan discussed with BUDGET MANAGER and attending. Anesthesia Screening documented in this encounter Miscellaneous Notes Addendum Note - Emelia Amador CRNA - 07/26/2022 1:22 PM EST Addendum created 07/26/221321 by Emelia Amador CRNA Intraprocedure Meds edited documented in this encounter Plan of Treatment Not on filedocumented as of this encounter Visit Diagnoses Not on filedocumented in this encounter Administered Medications Inactive Administered Medications - up to 3 most recent administrations Medication Order MAR Action Action Date Dose Rate Site ceFAZolin (Ancef) 2 g vial attach to New Bag 07/26/2022 7:39 AM ES T 2 g sodium chloride 0.9% 100 mL Mini-Bag Plus 2 g, Intravenous, SHIFT SUPERVISOR MELTING TO O.R., 1 dose, On Tamar 07/26/22 at 0715, Administer over 30 Minutes, score caller to OR, Indication for (Active or Suspected): Prophylaxis fentaNYL (pf) (50 mcg/mL) multi-dose Given 07/26/2022 10:[address] 25 mcg injection Intravenous, PRN, Starting on Tamar 07/26/22 at 0758, Until Tamar 07/26/22 at 1118, Anesthesia Intra-op, Routine Given 07/26/2022 10:41 AM EST 50 mcg Given 07/26/2022 9:24 AM EST 25 mcg insulin regular (HumuLIN R,NovoLIN R) (100 Given 07/26/2022 9:39 AM EST 2 Units unit/mL) injection vial Intravenous, PRN, Starting on Tamar 07/26/22 at 0939, Until Tamar 07/26/22 at 1118, Anesthesia Intra-op, Routine insulin regular (Myxredlin) (1 Rate/Dose Change 07/26/2022 10:59 7 Units/hr 7 mL/hr unit/mL) in sodium chloride AM EST 0.9% 100 mL infusion Intravenous, CONTINUOUS PRN, Starting on Tamar 07/26/22 at 0939, Until Tamar 07/26/22 at 1118, Anesthesia Intra-op, Routine Rate/Dose Change 07/26/2022 10:03 AM EST 5 Units/hr 5 mL/hr New Bag 07/26/2022 9:39 AM EST 2 Units/hr 2 mL/hr lactated ringers infusion New Bag 07/26/2022 7:32 AM EST 1,000 mL, at 100 mL/hr, Intravenous, CONTINUOUS, Starting on Tamar 07/26/22 at 0645, Until Tamar 07/26/22 at 1248, Day of Surgery (Day of Procedure) ondansetron (pf) (Zofran) (2 mg/mL) inje ction Given 07/26/2022 11:00 AM EST 4 mg Intravenous, PRN, Starting on Tamar 07/26/22 at 1100, Until Tamar 07/26/22 at 1118, Anesthesia Intra-op, Routine PHENYLephrine (Reynaldo-Synephrine) Restarted 07/26/2022 10:48 AM 20 mcg/min 15 mL/hr (80 mcg/mL) in sodium chloride EST 0.9% 250 mL infusion Intravenous, CONTINUOUS PRN, Starting on Tamar 07/26/22 at 0932, Until Tamar 07/26/22 at 1118, Anesthesia Intra-op, Routine Rate/Dose Change 07/26/2022 10:23 AM EST 20 mcg/min 15 mL/hr Rate/Dose Change 07/26/2022 9:49 AM EST 10 mcg/min 7.5 mL/hr PHENYLephrine in NS (PF) (REYNALDO-SYNEPHRINE) Given 07/26/2022 10:24 AM EST 40 mcg 0.8 mg/10 mL (80 mcg/mL) multi-dose injection Syrg Intravenous, PRN, Starting on Tamar 07/26/22 at 0910, Until Tamar 07/26/22 at 1118, Anesthesia Intra-op, Routine Given 07/26/2022 9:29 AM EST 40 mcg Given 07/26/2022 9:10 AM EST 40 mcg propofoL (Diprivan) 10 mg/mL bolus injection Given 06/2022 7:48 AM EST 200 mg (Anesthesia) Intravenous, PRN, Starting on Tamar 07/26/22 at 0748, Until Tamar 07/26/22 at 1118, Anesthesia Intra-op rocuronium (Zemuron) (10 mg/mL) multi-dose Given 07/26/2022 10:2 7 AM EST 20 mg injection Intravenous, PRN, Starting on Tamar 07/26/22 at 0749, Until Tamar 07/26/22 at 1118, Anesthesia Intra-op, Routine Given 07/26/2022 9:50 AM EST 20 mg Given 07/26/2022 8:45 AM EST 20 mg sugammadex (Bridion) 100 mg/mL injection Given 07/26/2022 10:58 AM EST 250 mg Intravenous, PRN, Starting on Tamar 07/26/22 at 1058, Until Tamar 07/26/22 at 1118, Anesthesia Intra-op, Routine documented in this encounter Care Teams Conference Service Coordinator Relationship Specialty Start Date End Date Navin Souza MD PCP - General Family Medicine 02/19/22 [address] [place] [address] documented as of this encounter
--- OUTSIDE RECORDS SUMMARY | 2022-08-22 09:59 | XMS_ITS | Encounter Summary ---
:1950 Author Organization [facility] [place] [address] Care Team Providers Name Role Phone Navin Souza MD Primary Care Provider Reason for Visit Reason Comments Follow-up Encounter Details Date Type Department Care Team Description 08/21/2022 Office Visit General Surgery at [facility] Eugenie Mcleod, [place] [address] GENERAL SURGERY [place] [address] (Wo rk) Social History Tobacco Use Types Packs/Day Years Used Date Smoking Tobacco: Former Cigarettes Quit : 03/17/1986 Smokeless Tobacco: Never Alcohol Use Standard Drinks/Week Comments Yes 35 (1 standard drink = 0.6 oz pure alcoh ol) Sex Assigned at Date Recorded Not on file documented as of this encounter Last Filed Vital Signs Vital Sign Reading Time Taken Comments Blood Pressure 163/84 08/21/2022 1:01 PM EST Pulse 67 08/21/2022 1:01 PM EST Temperature 36.6 ??C (97.9 ??F) 08/21/2022 1:01 PM EST Respiratory Rate 16 08/21/2022 1:01 PM EST Oxygen Saturation 99% 08/21/2022 1:01 PM EST Inhaled Oxygen Concentration - - Weight 102.5 kg (226 lb) 08/21/2022 1:01 PM EST Height 193 cm (6' 3.98) 08/21/2022 1:01 PM EST Body Mass Index 27.52 08/21/2022 1:01 PM EST documented in this encounter Progress Notes Eugenie Mcleod APRN - 08/21/2022 1:00 PM EST Fuad Pendleton is here for hospital check. 07/26/22:laparoscopic cholecystectomy with cholangiogram-[facility] Findings: 1. Adhesions of omentum to the gallbladder 2. Gallbladder chronically inflamed and decompressed with cholecystostomy tube in place, cystic ductidentified 3. Cholangiogram unable to be performed as cystic duct diminutive with obliterated lumen 4. Gallbladder removed from abdomen through the umbilical port in a Eco bag and sent for pathology. Cholecystostomy tube removed. Path: DIAGNOSIS A - Gallbladder and contents, excision: Chronic cholecystitis with transmural congestion and focal hemosiderin deposition in ??the wall. Electronically signed by: ?Joanna Gar MD Feels very well, denies fevers chills jaundice, pale stools or dark urine. Denies abdominal pain, nausea, or vomiting, appetite and energy good, denies any incisional pain. Moving bowels, denies diarrhea. Pleased with progress, in good spirits. Exam: Well appearing, moves easily about the exam room and onto the exam table. Sclera clear and non icteric, no jaundice. Abd soft non tender non distended, with benign healed trocar sites. Impression/plan: Stable post discharge course No activity restrictions after 08/25/22 At this time there is no scheduled general surgery FU indicated. However, the patient knows to feelfree to call us should there be any question, concern, or should anything specific arise. documented in this encounter Plan of Treatment Not on filedocumented as of this encounter Visit Diagnoses Diagnosis Surgery follow-up Follow-up examination, following unspeci fied surgery documented in this encounter Care Teams Floor Layer Tile Relationship Specialty Start Date End Date Navin Souza MD PCP - General Family Medicine 02/19/22 [address] [place] [address] documented as of this encounter
--- OUTSIDE RECORDS SUMMARY | 2022-08-22 09:59 | XMS_ITS | Clinical Summary ---
:1950 Author Organization [facility] [place] [address] Care Team Providers Name Role Phone Navin Souza MD Primary Care Provider Allergies Active Allergy Reactions Severity Noted Date Comments Adhesive 06/01/2022 Corticosteroids (Glucocorticoids) Rash Low 022 Medications Medication Sig Dispensed Refills Start Date End Date Status escitalopram Take 10 mg by mouth 0 11/17/2021 Active (Lexapro) 10 mg daily. Tablet glimepiride (AMARYL) Take 4 mg by mouth 2 0 07/31/20 21 Active 4 mg Tablet times daily. LORazepam (Ativan) 1 Take 1 mg by mouth 2 0 11/18/19 22 Active mg Tablet times daily as needed. losartan (Cozaar) 50 Take 50 mg by mouth 0 1 Active mg Tablet daily. metoprolol succinate Take 50 mg by mouth 0 1 Active XL (Toprol-XL) 50 mg daily. Tablet Sustained Release 24 hr RABEprazole Take 20 mg by mouth 0 03/14/2021 Active (ACIPHEX) 20 mg daily. Tablet, Delayed Release (E.C.) nitroGLYcerin Place 1 tablet under 30 tablet 0 02/28/2022 Active (Nitrostat) 0.4 mg the tongue every 5 Tablet, Sublingual minutes as needed for Chest pain. atorvastatin Take 1 tablet by 90 tablet 3 02/28/2022 Active (Lipitor) 80 mg mouth every evening. Tablet aspirin EC 81 mg Take 1 tablet by 90 tablet 3 03/01/2022 Active Tablet, Delayed mouth daily. Release (E.C.) clopidogreL (Plavix) Take 1 tablet by 90 tablet 3 03/01/2022 Active 75 mg Tablet mouth daily. furosemide (Lasix) Take 1 tablet by 90 tablet 3 03/01/2022 Active 20 mg Tablet mouth daily. spironolactone Take 0.5 tablets by 90 tablet 1 03/01/2022 Active (Aldactone) 25 mg mouth daily. Tablet empagliflozin Take 1 tablet by 30 tablet 11 03/02/2022 Active (Jardiance) 10 mg mouth daily. Tablet acetaminophen Take 3 tablets by 30 tablet 1 04/11/2022 Active (Tylenol) 325 mg mouth every 8 hours Tablet as needed for Pain. dulaglutide Inject 0.75 mg 0 Act ashley (Trulicity) 0.75 subcutaneously once mg/0.5 mL Pen a week. Injector Active Problems Problem Noted Date Cholecystitis 04/09/2022 Acute systolic congestive heart failure 02/21/2022 NSTEMI (non-ST elevated myocardial infarction) 022 Encounters Date Type Specialty Care Team Description 08/21/2022 Office Visit General Surgery Eugenie [facility] f key-felicita M, MOTION STUDY ENGINEER 08/21/2022 Travel 08/08/2022 Hospital Encounter Radiology Richmond Metzed (P-NO LONGER MD Lois NEEDED) 07/26/2022 Anesthesia Event Surgery Delfino Lind MD 07/26/2022 Surgery Surgery Bj Calzada MD CHOLECYSTECTOMY (WRVU 10.47) 07/26/2022 - Hospital Encounter Bj Calzada 07/27/2022 MD Scarlet 07/23/2022 Telephone Pre-Admission Elenita Marin, RN 07/17/2022 Telephone Pre-Admission Cecily Veras RN 06/29/2022 Office Visit General Surgery Bj Calzada Cholecysto stomy tube MD Scarlet dysfunction, subsequent enco unter 06/09/2022 Telephone General Surgery Beatriz Ballard MD 06/01/2022 Office Visit General Surgery Bj Calzada Cholecysto stomy tube MD [place] dysfunction, subsequent enco unter 06/01/2022 Hospital Encounter Radiology Isaías, Cholecyst itis; MD Losi Acute systolic congestive heart failure 05/28/2022 Telephone General Surgery Melissa Blakely RN from Last 3 Months Social History Tobacco Use Types Packs/Day Years Used Date Smoking Tobacco: Former Cigarettes Quit : 03/17/1986 Smokeless Tobacco: Never Alcohol Use Standard Drinks/Week Comments Yes 35 (1 standard drink = 0.6 oz pure alcoh ol) Sex Assigned at Date Recorded Not on file Last Filed Vital Signs Vital Sign Reading [...] Mass Index 27.52 08/21/2022 1:01 PM EST Plan of Treatment Health Maintenance Due Date Last Done Comments CT Colonography 1950 Colonoscopy 1950 Colorectal Cancer Screening 1950 FIT DNA 1950 FIT 1950 Sigmoidoscopy (10 year) with FIT 1950 yearly Sigmoidoscopy 1950 Covid-19 Vaccine (#1) 1950 Pneumoccocal Vaccine: 65+ (1 - 1958 PCV) Hepatitis C Screening 1970 Tdap adult 1971 Tetanus vaccine 1971 Zoster vaccine (1 of 2) 2002 Advance Directive 2007 AAA Screen 2017 Influenza (Flu) vaccine (1 of 1 - 05/17/2022 Influenza standard series) Diabetes Screening (HgbA1C or 04/11/2025 04/11/2022, 2021, Glucose) 04/09/2022, Additional history exists Lipid Screening Discontinued 02/21/2022 Procedures Procedure Name Priority Date/Time Associated Diagnosis Comme nts POCT GLUCOSE Routine 07/27/2022 7:52 Results for [...] procedure are i n the results section. SCAN DOC: TELEMETRY 07/26/2022 11:38 Resu lts for this STRIPS AM EST procedure are i n the [...] procedure are i n the results section. LAB SCAN 06/11/2022 12:00 Results for this AM EDT procedure are i n the results section. IR BILIARY TUBE Routine 06/01/2022 11:00 Cholecystitis Results for this CHECK/CHANGE/REMOVE AM EDT procedur e are in the results section. from Last 3 Months Results POCT Glucose (07/27/2022 7:52 AM EST)Only the most recent of14 resultswithin the time period is included. P athologist Signature POC Glucose 169 65 - 199 [facility] mg/dL [facility] Comment: Supplemental ranges: <140 mg/dL before meals <180 mg/dL all other times of the day Specimen Anatomical Collection Method Collection Time Receive d Time (Source) Location / / Volume Laterality Blood 07/27/2022 7:52 AM 7:52 EST AM EST Bj Calzada MD POINT OF CARE TEST ORDERABLE S Performing Organization Address City/[facility]/[place] [address] SCAN DOC: TELEMETRY STRIPS (07/26/2022 11:38 AM EST) Narrative 07/26/2022 11:38 AM EST This result has an attachment that is no t available. Ordered by an unspecified provider. Scanning Provider MEDIA MGR SCAN EXT ORDR/RSLT Specimen to Pathology (07/26/2022 10:41 AM EST) Specimen Anatomical Collection Method Collection Time Receive d Time (Source) Location / / Volume Laterality AP Specimen 07/26/2022 10:41 07/26/2022 AM EST 10:41 AM EST Narrative [facility] LABORAT ORY - 07/26/2022 10:41 AM EST Specimen requisition ordered. ??Separate Pathology report to follow Bj Calzada MD PATHOLOGY/CYTOLOGY ORDERABLE S Performing Organization Address City/[facility]/ZIP Code Phon e Number [address] Surgical Pathology Report (07/26/2022 10:30 AM EST) Component Value Ref Test Analysis Performed At Patholo gist Range Method Time Signature Surgical [id number] ? Location: [facility]; SS03; A [facility] Pathology BREDA Report The signing pathologist has (i) examined the relevant preparation(s) for the [facility] specimen(s) and (ii) rendered or confirmed the diagnosis(es) . HOSPITAL LABORATORY . ?Surgic al Pathology DIAGNOSIS A - Gallbladder and contents, excision: Chronic cholecystitis with t ransmural congestion and focal hemosiderin deposition in the wall. Electronically signed by: ?Cong CUMMINGS, Joanna Verified: ??08/04/2022 11:20 ??Pathologist Performed at: ??-[facility] Dept. of [place]ology, [place] [address] Senior Back End Java Developer: Raghavendra slade MD, FCAP, ??CLIA Certificate: [id number] SPECIMEN(S) SUBMITTED A - Gallbladder & contents [...] The hepatic margin is inked black Sections/Processing: Senior Product Marketing Manager sections in 1 cassettes as follows: ?A1: ??Presumed cystic duct margin and inventory representative m ucosa ??jnr Specimen (Source) Anatomical Collection Method Collection Time Re ceived Time Location / / Volume Laterality 07/26/2022 10:30 AM EST Bj Calzada MD PATHOLOGY/CYTOLOGY ORDERABLE S Performing Organization Address City/State/[place] [address] (ABNORMAL) BLOOD GAS 2 ARTERIAL (07/26/2022 8:35 AM EST)Only the most recent of2 resultswithin the time period is included. Analysis Performed At Patho logist Time Signature pH Art 7.36 7.35 - [facility] 7.45 [facility] pCO2 Art 43 35 - 45 [facility] mmHg [facility] pO2 Art 144 (H) 85 - 104 [facility] LABORATORY HCO3 Art 23.7 20.0 - [facility] 26.0 [facility] mmol/L [facility] BE Art -2.1 -3.0 - 3.0 [facility] mmol/L [facility] Hgb Blood Gas 14.7 13.7 - [facility] 16.5 g/dL [facility] O2HB Art 98.1 (H) 94.0 - [facility] 97.0 % [facility] COHB Art 0.6 % [facility] Comment: Nonsmokers: 0.5-1.5% COHB Smokers: Variable, but usually less than 10% Toxic: 20-30% COHB Lethal: Greater than 60% COHB METHB Art 0.0 <=1.5 % [facility] Na Whole Blood 135 135 - 145 mmol/L [facility] K Whole Blood 3.9 3.5 - 5.0 mmol/L [facility] Comment: Please note: Patients with WBC >100,000 may have falsely elevated Potassium levels. Contact the Clinical Chemistry L aboratory if there are any questions. ICa Whole Blood 1.14 (L) 1.15 - 1.33 mmol/L [facility] Comment: Note: ??Total bilirubin higher than 20 m g/dL may lead to falsely low ionized calcium. CL Whole Blood 104 98 - 107 mmol/L [facility] Gluc Whole Bld 187 65 - 199 mg/dL [facility] Comment: Diabetes: >=200 mg/dL plus symp toms. Lactate WB 1.8 0.5 - 2.2 mmol/L [facility] FIO2 Art 57 % [facility] Flow Art 1.0 LPM [facility] PF Ratio Art 253 [facility] Temp Art 36.0 Celsius [facility] Specimen Anatomical Collection Method Collection Time Receive d Time (Source) Location / / Volume Laterality Blood 07/26/2022 8:35 AM 8:35 EST AM EST Bj Calzada MD CHEMISTRY ORDERABLES Performing Organization Address City/State/[place] [address] SCAN DOC: LAB (06/11/2022 12:00 AM EDT) Narrative 06/11/2022 12:00 AM EDT This result has an attachment that is no t available. Ordered by an unspecified provider. Scanning Provider MEDIA MGR SCAN EXT ORDR/RSLT IR Biliary Tube Check/Change/Remove (06/01/2022 11:00 AM [...] catheter was then exchanged for a 8.5 Cambodian Candelaria-Joaquin catheter over an 0.035 Amplatz wire. [...] ct identified. ? ? Exchange for 10 Cambodian Candelaria-Joaquin catheter, positioned within the gallbladder lumen Impression: 1) Obstructed cystic duct. 2) Cholecystostomy catheter exchanged fo r 10 Cambodian Candelaria-Joaquin. Plan: - To angio recovery, may discharge when criteria met - Routine cholecystostomy catheter evalu ation in 2 months (placeholder), order placed and IR care team coordinator scheduler notified. Resident/Fellow: Toby Eaton MD [facility] Attending: Dr. Ching Lois Metz MD IMG IR ORDERABLES from Last 3 Months Insurance Payer Benefit Plan / Subscriber ID Effective Dates Phone Addre ss Type Group MEDICARE MEDICARE PART [id number] 2022-Presen [phone] [place] [address] FOR FOR [id number] 2022-Presen [phone] [address] [place] t [address] [place] [address] Advance Directives Latest Code Status on File Code Status Date Activated Date Inactivated Comments Attempt Cardiopulmonary Resuscitation 07/26/2022 11:35 AM 2021 2:32 PM - Inpatient Question Answer Comments Code Status decision made by: Patient Code Status History Code Status Date Activated Date Inactivated Comments Attempt Cardiopulmonary Resuscitation - 06/01/2022 9:29 AM 9/17/2 022 4:39 AM Inpatient Question Answer Comments Code Status decision made by: Patient Attempt Cardiopulmonary Resuscitation - 04/09/2022 10:52 AM 2021 6:13 PM Inpatient Question Answer Comments Code Status decision made by: Patient Attempt Cardiopulmonary Resuscitation - 04/09/2022 10:35 AM 2021 10:52 AM Inpatient Question Answer Comments Code Status decision made by: Patient Attempt Cardiopulmonary Resuscitation - 02/20/2022 10:01 PM 022 5:28 PM Inpatient Question Answer Comments Code Status decision made by: Patient Care Teams Locksmith Helper Relationship Specialty Start Date End Date Navin Souza MD PCP - General Family Medicine 02/19/22 [address] [place] [address]
--- OUTSIDE RECORDS SUMMARY | 2022-08-22 09:59 | XMS_ITS | Encounter Summary ---
:1950 Author Organization [facility] [place] [address] Care Team Providers Name Role Phone Navin Souza MD Primary Care Provider Encounter Details Date Type Department Care Team Description 06/29/2022 Office Visit General Surgery at Bj Calzada, Jordi ecystostomy tube [facility] [place], subsequent [facility] encounter [facility] [address] [place], [place] GENERAL SURGERY [address] [place] [address] [phone] Social History Tobacco Use Types Packs/Day Years Used Date Smoking Tobacco: Former Cigarettes Quit : 03/17/1986 Smokeless Tobacco: Never Alcohol Use Standard Drinks/Week Comments Yes 0 (1 standard drink = 0.6 oz pure alcoho l) Sex Assigned at Date Recorded Not on file documented as of this encounter Last Filed Vital Signs Vital Sign Reading Time Taken Comments Blood Pressure 152/80 06/29/2022 1:22 PM EDT Pulse 69 06/29/2022 1:22 PM EDT Temperature 36 ??C (96.8 ??F) 06/29/2022 1:22 PM EDT Respiratory Rate 18 06/29/2022 1:22 PM EDT Oxygen Saturation 100% 06/29/2022 1:22 PM EDT Inhaled Oxygen Concentration - - Weight - - Height - - Body Mass Index - - documented in this encounter Progress Notes Bj Calzada MD - 06/29/2022 1:30 PM EDT [facility] [...] well at home. No pain with eating. He was seen one month ago in clinic and due to the scant drainage from the irwin tube the tube was clamped. He did not tolerate clampin g and developed abdominal pain. This was relieved by placing the tube back to gravity drainage. His cholecystostomy tube has remains open but drains < 5 mL at day. He has had no episodes of RUQ, epigastric or lower sub sternal chest pain. No f/c. No yellowing of the skin or eyes, no dark tea colored urine or barillas colored stools. Exam: BP 152/80 Pulse 69 Temp 36 ??C (96.8 ??F) Resp 18 SpO2 100% , There is no height or weight on file to calculate BMI. Physical Exam: General: NAD, A&Ox3 HEENT: normocephalic, anicteric sclerae Abd: soft, non-tender, cholecystostomy tube in place Imaging: Cholecystostomy tube study 06/01/22 Findings: ?? Percutaneous cholecystostomy catheter positioned within the gallbladder. ?? Contrast injection demonstrates opacified opacified cystic duct, however no communication with the common bile duct identified. ?? Exchange for 10 Indian Candelaria-Joaquin catheter, positioned within the gallbladder lumen ?? Impression: 1) Obstructed cystic duct. 2) Cholecystostomy catheter exchanged for 10 Indian Candelaria-Joaquin. ?? Plan: - To angio recovery, january discharge when criteria met - Routine cholecystostomy catheter evaluation in 2 months (placeholder), order placed and IR program scheduler notified. Assessment and Plan: 72 yo male with cholecystostomy tube in place with minimal drainage over the past few weeks and no pain as long as tube remains open. He failed clamping trial and will need cholecystectomy when safe toproceed.. Based on Cardiology's recommendations from March he would be far enough out from his NSTEMIto safely proceed with cholecystectomy if needed sometime in June. Discussed options with Mr Pendleton including waiting on surgery for another 3-4 months so that he can come off plavix and asa (although this would still be risky form in stent restenosis risk). Discussed proceeding with cholecystectomywhile on plavix and asa. After discussion of the options, risks and benefits elected to proceed with laparoscopic cholecystectomy with cholangiogram and possible lap CBD exploration. Consent obtained. Given his comorbidities will likely stay overnight one night. Follow Up: schedule for surgery. documented in this encounter Plan of Treatment Not on filedocumented as of this encounter Visit Diagnoses Diagnosis Cholecystostomy tube dysfunction, subseq uent encounter documented in this encounter Care Teams Audit Mgr Relationship Specialty Start Date End Date Navin Souza MD PCP - General Family Medicine 02/19/22 [address] [place] [address] documented as of this encounter
--- OUTSIDE RECORDS SUMMARY | 2022-08-22 09:59 | XMS_ITS | Encounter Summary ---
:1950 [place] [address] Care Team Providers Name Role Phone Navin Souza MD Primary Care Provider Encounter Details Date Type Department Care Team Description 05/12/2022 Notes Only Radiology [place] [facility] Bj Oconnor [facility] [place] [address] RADIOLOGY [phone] [place] [id number] (Wo rk) Social History Tobacco Use Types Packs/Day Years Used Date Smoking Tobacco: Former Cigarettes Quit : 03/17/1986 Smokeless Tobacco: Never Alcohol Use Standard Drinks/Week Comments Yes 0 (1 standard drink = 0.6 oz pure alcoho l) Sex Assigned at Date Recorded Not on file documented as of this encounter H&P Notes Bj Oconnor DO - 05/12/2022 12:55 PM EDT Images from the original note were not included. INTERVENTIONAL RADIOLOGY FOCUSED H&P and PRE-PROCEDURE NOTE: PCP: Navin Souza MD Referring Provider: Elizabet Monae Planned Procedure: Planned procedure: Cholecystostomy Catheter Evaluation and Exchange Procedure Indication: Recent NSTEMI with EF 17% with acute cholecytitis status post cholecystostomy catheter on 03/31. Routine drainage catheter evaluation. Procedure Request: Procedure request received through the Interventional Radiology eDH order queue. Presenting Diagnosis/ Complaint: Fuad Pendleton is a 72 y.o. male presenting to IR for cholecystostomy catheter evaluation. Past medical history is significant for ??DM, HTN, GERD and anxiety??with recent NSTEMI (02/19/2022) treated with PCI now on ASA and plavix lifelong and new HFrEF (LVEF 17% on last echo) who presented to an OSH??initially??on 04/08/22??with concern of an acute coronary problem as he had epigastric pain that was unrelieved with nitroglycerin. While at the OSH, his pain radiated to his RUQ and he became febrile.??There he underwent CT scan which was concerning for acute cholecystitis. IR placed a cholecystostomy catheter on 04/10/22. Now presenting for first cholecystostomy catheter mak luation. Antiplatelets: Aspirin and Plavix. Anticoagulants: None. Recent Laboratories: ??? Platelets: 135 on 04/11/22. ??? INR: None. ??? Creatinine: 0.63 on 04/11/22. ??? Getting Laboratories Before Procedure: No. Allergies: None. Pertinent Follow Up: No follow-up currently booked with the ACS service; will reach out to ensure follow up is coordinated for the day of the cholecystostomy catheter evaluation. Past Medical/Surgical History: Patient Active Problem List Diagnosis Code ??? NSTEMI (non-ST elevated myocardial infarction) I21.4 ??? Acute systolic congestive heart failure I50.21 ??? Cholecystitis K81.9 Past Medical History: Diagnosis Date ??? Anxiety ??? Diabetes mellitus ??? GERD (gastroesophageal reflux disease) ??? HLD (hyperlipidemia) ??? Hypertension ??? NSTEMI (non-ST elevated myocardial infarction) Past Surgical History: Procedure Laterality Date ??? IR CHOLECYSTOSTOMY TUBE PLACEMENT 04/10/2022 IR Cholecystostomy Tube Placement 04/10/[address] [facility] INTERVENTIONL RAD Medications: Current Outpatient Medications on File Prior to Visit Medication Sig Dispense Refill ??? acetaminophen (Tylenol) [...] current facility-administered medications on file prior to visit. Allergies: Corticosteroids (glucocorticoids) Social History and Habits: Social History Socioeconomic History ??? Marital status: Spouse name: Not on file ??? Number of children: Not on file ??? Years of education: Not on file ??? Highest education level: Not on file Occupational History ??? Not on file Tobacco Use ??? Smoking status: Former Smoker Types: Cigarettes Quit date: 03/17/1986 Years since quittin.1 ??? Smokeless tobacco: Never Used Substance and [...] day of procedure) Assessment: 72 y.o. male presenting to IR for cholecystostomy catheter evaluation. Past medical history is significant for ??DM, HTN, GERD and anxiety??with recent NSTEMI (02/19/2022) treated with PCI now on ASA and plavix lifelong and new HFrEF (LVEF 17% on last echo) who presented to an OSH??initially??on 04/08/22??with concern of an acute coronary problem as he had epigastric pain that was unrelievedwith nitroglycerin. While at the OSH, his pain radiated to his RUQ and he became febrile.??There he underwent CT scan which was concerning for acute cholecystitis. IR placed a cholecystostomy catheter on 04/10/22. Now presenting for first cholecystostomy catheter evaluation. Reviewed with Attending: Dr. Oconnor Plan: Planned procedure: Cholecystostomy Catheter Evaluation and Exchange Labs to be performed day of procedure: No labs Sedation: Fentanyl only Prophylactic antibiotic : None Contrast: Omnipaque Additional medications for procedure: Lidocaine Planned access site: Cholecyststomy Catheter Position: Supine Consent: Completed Medications to discontinue (and days held): None Case Urgency:: G- Other (non E or F elective cases) 05/12/2022 documented in this encounter Plan of Treatment Not on filedocumented as of this encounter Visit Diagnoses Not on filedocumented in this encounter Care Teams Engineering Test Mechanic Relationship Specialty Start Date End Date Navin Souza MD PCP - General Family Medicine 02/19/22 [address] [place] [address] documented as of this encounter
--- OUTSIDE RECORDS SUMMARY | 2022-08-22 09:59 | XMS_ITS | Encounter Summary ---
:1950 Author Organization [facility] [place] [address] Care Team Providers Name Role Phone Navin Souza MD Primary Care Provider Encounter Details Date Type Department Care Team Description 08/21/2022 Travel Social History Tobacco Use Types Packs/Day Years Used Date Smoking Tobacco: Former Cigarettes Quit : 03/17/1986 Smokeless Tobacco: Never Alcohol Use Standard Drinks/Week Comments Yes 35 (1 standard drink = 0.6 oz pure alcoh ol) Sex Assigned at Date Recorded Not on file documented as of this encounter Plan of Treatment Not on filedocumented as of this encounter Visit Diagnoses Not on filedocumented in this encounter Care Teams Professional Development Director Relationship Specialty Start Date End Date Navin Souza MD PCP - General Family Medicine 02/19/22 [address] [place] [address] documented as of this encounter
--- OUTSIDE RECORDS SUMMARY | 2022-08-22 09:59 | XMS_ITS | Encounter Summary ---
:1950 Author Organization [facility] [place] [address] Care Team Providers Name Role Phone Navin Souza MD Primary Care Provider Encounter Details Date Type Department Care Team Description 06/09/2022 Telephone General Surgery at [facility] Beatriz Ballard MD [facility] [place] [id number] GENERAL SURGERY [phone] [place], [place] [address] (Wo rk) Social History Tobacco Use Types Packs/Day Years Used Date Smoking Tobacco: Former Cigarettes Quit : 03/17/1986 Smokeless Tobacco: Never Alcohol Use Standard Drinks/Week Comments Yes 0 (1 standard drink = 0.6 oz pure alcoho l) Sex Assigned at Date Recorded Not on file documented as of this encounter Miscellaneous Notes Telephone Encounter - Beatriz Ballard MD - 06/09/2022 4:19 PM EDT I returned the patient's call at 4:19 PM. Fuad Pendleton is a 72 y.o. male Interval History: 72 yo male s/p NSTEMI [...] showed an EF improved to 45%. He was recently seen in clinic with Dr. Calzada (06/01) where he was instructed to cap his cholecystostomy tube. He is calling in regards to blood in his cholecystostomy tube when he flushed the tube this AM. He reports there was very minimal blood in the tube this morning. It was a dark red blood tinged bile butvery minimal. He has already spoken with IR regarding the outputs. They are recommending that he flush the drain slower as he may have flushed it too forcefully (per patient) and they asked him to callback in the afternoon to see how he is doing. His pain is well under control. He denies lightheadedness, dizziness, chest pain, shortness of breath, nausea. I asked him to also call our clinic if this is not improved or resolved. I will also ask our clinic to call the patient on Saturday to check in with him. This note will be routed to the provider mentioned above. Beatriz Ballard MD documented in this encounter Plan of Treatment Not on filedocumented as of this encounter Visit Diagnoses Not on filedocumented in this encounter Care Teams Tool Lapper Hand Relationship Specialty Start Date End Date Navin Souza MD PCP - General Family Medicine 02/19/22 [address] [place] [address] documented as of this encounter
--- OUTSIDE RECORDS SUMMARY | 2022-08-22 10:00 | XMS_ITS | Encounter Summary ---
:1950 Author Organization [facility] [place] [address] Care Team Providers Name Role Phone Navin Souza MD Primary Care Provider Reason for Referral Consultation (Routine) - Authorized Specialty Diagnoses / Procedures Referred By Contact Refer red To Contact Diagnoses Non-ST elevation myocardial infarction (NSTEMI) Bne Schaeffer MD Cardiac Rehab, [facility] CARDIOLOGY DEPT [address] [place] [address] [place], [place] [id number] [place] [phone] Fax: Referral ID Status Reason Start Date Expiration Visits Visits Date Requested Authorized [id number] Authorized Consult, 02/28/2022 08/27/2022 36 36 Test & Treat iagnostic Test (Routine) - Authorized Specialty Diagnoses / Procedures Referred By Contact Refer red To Contact Cardiology Diagnoses Acute systolic congestive heart failure Ramirez Najera PA [facility] Non-Inv Card Lab Procedures [place]ocardi[place] [address] [place] [address] Referral ID Status Reason Start Expiration Visits Visits Date Date Requested Authorized [id number] Authorized Specialty 02/28/2022 02/28/2023 1 1 Service Requested Reason for Visit Auth/Cert Specialty Diagnoses / Procedures Referred By Contact Refer red To Contact Diagnoses NSTEMI (non-ST elevated myocardial infarction) nstemi Elmer Fiore MD [facility] [place] [address] Referral ID Status Reason Start Date Expiration Date Visits Requ ested Visits Authorized [id number] 1 1 Encounter Details Date Type Department Care Team Description 02/20/2022 - Hospital Encounter Intermediate Cardiac Garth Thompson MD [facility] [address] Non-ST elevation myocardial infarction ( NSTEMI); 02/28/2022 Care Unit Elmer Rico MD [facility] [place] [address] Acute systolic congestive heart failure [facility] Ben Schaeffer MD [facility] [place] [address] [place] [id number] Social History Tobacco Use Types Packs/Day Years Used Date Smoking Tobacco: Former Cigarettes Quit : 03/17/1986 Smokeless Tobacco: Never Alcohol Use Standard Drinks/Week Comments Yes 0 (1 standard drink = 0.6 oz pure alcoho l) Sex Assigned at Date Recorded Not on file documented as of this encounter Last Filed Vital Signs Vital Sign Reading Time Taken Comments Blood Pressure 109/69 02/28/2022 11:38 AM EDT Pulse 91 02/28/2022 8:50 AM EDT Temperature 36.9 ??C (98.4 ??F) 02/28/2022 11:38 AM EDT Respiratory Rate 18 02/28/2022 11:38 AM EDT Oxygen Saturation 95% 02/28/2022 11:38 AM EDT Inhaled Oxygen Concentration - - Weight 101.2 kg (223 lb 1.7 oz) 02/27/2022 6:31 AM EDT Height 193 cm (6' 4) 02/20/2022 7:58 PM EDT Body Mass Index 27.16 02/20/2022 7:58 PM EDT documented in this encounter Discharge Summaries Ramirez Najera PA - 02/28/2022 2:58 PM EDT Images from the original note were not included. Discharge Summary Patient Name: Gillian Branch Patient Age: 71 y.o. Language: Mongolian Race: White Ethnicity: Not nor Admit date: 02/20/2022 Discharge date and time: 02/28/2022 2:58 PM Attending Physician: Elmer Fiore MD, Ben Schaeffer MD Discharge Physician: Ben Schaeffer MD Follow-up Recommendations for Providers: Gillian Branch is a 71 y/o male who was admitted for NSTEMI and new HFrEF. 1. NSTEMI 2. HFrEF / Ischemic cardiomyopathy ?? TTE w/ EF of 17% and apical WMA's ?? S/p LHC with PAVING CONTRACTOR of the proximal LAD found ?? Viability study was positive except for the apex; LAD PAVING CONTRACTOR intervention was done on 02/27/2022 ?? Continue high intensity statin ?? DAPT recommendations: ASA 81 mg daily indefinitely and Plavix 75 mg daily indefinitely ?? GDMT: Metoprolol XL 50 mg daily, Losartan 50mg daily, spironolactone 12.5mg daily, empagliflozin 10 mg daily ?? empagliflozin to replace home canagliflozin ?? Recommend repeat TTE to assess LV function (scheduled for 04/10/2022) ?? Discharge weight: 223lbs ?? Discharge diuretic: Lasix 20mg daily ?? Please check BMP ~1 week Inpatient Provider Contact Information: MD Ben Mills MD Zerina Dulas, PA-C Janette Stender, IVORY CARVER Cardiovascular Medicine [phone] Discharge Diagnoses (Hospital Problems) and Secondary Diagnoses (Chronic Problems): Active Hospital Problems Diagnosis ??? NSTEMI (non-ST elevated myocardial infarction) ??? Acute systolic congestive heart failure Resolved Hospital Problems No resolved problems to display. There are no active non-hospital problems to display for this patient. Pertinent studies / diagnostics / procedures: Cardiac catheterization 02/27/2022 Hemodynamics: Left Heart Pressures Resting: Syst Diast EDP a v m Ao 115 53 75 LV 115 4 Coronary Angiography: Dominance: Right Left Main There was moderate diffuse (<=50% stenosis) disease of the entire vessel segment of the left main artery. The distal segment of the left main had 60% stenosis. Left Anterior Descending There was a single discrete total occlusion of the ostial segment of the left anterior descending artery (LAD). The proximal segment of the LAD had a single discrete 99% stenosis. There was a 95% stenosis of the ostial segment of the first diagonal branch (Diagonal 1) of the LAD. There was a 75% stenosis of the ostial segment of the second diagonal branch (Diagonal 2) of the LAD. Left Circumflex As a consequence of the catheterization/intervention procedures, a 90% diffuse stenosis developed in the proximal segment of the left circumflex artery (LCX). There was evidence of thrombus in this lesion. Right Coronary Artery The right coronary artery (RCA) was normal, free of disease. Ramus There was a 90% stenosis of the ostial segment of the ramus. Intravascular Imaging/Physiology: Intravascular Ultrasound was performed in the proximal LCX using a 8 Fr EBU 3.5 guiding catheter and a 3.1 Fr Refinity 42 MHz catheter using auto 1 mm/sec pullback. Imaging was successful. Image quality was good. The proximal LCX showed thrombus. Intravascular Ultrasound was performed in the proximal LAD using a 8 Fr EBU 3.5 guiding catheter and a 3.1 Fr Refinity 42 MHz catheter using auto 1 mm/sec pullback. Imaging was successful. Image quality was good. The proximal LAD showed severe diffuse atherosclerotic plaque. Post Intervention: The stent was well expanded and apposed. Indication for Intervention: Coronary intervention was indicated for primary therapy for an acute myocardial infarction. The priority for the procedure was Urgent. The NCDR indication for the procedure was NSTE-ACS. LVEF within one week was 19%. Syntax Score was High. PCI is performed after surgical consult and Surgery Not Recommended. An intraaortic balloon pump was inserted for Prophylaxis. Intervention Summary: Left Anterior Descending Artery Ostial 100% Stent insertion was performed on the total occlusion in the ostial segment of the LAD. This was a chronic total occlusion lesion. According to the ACC/AHA classification system, this lesion was a type C high risk lesion. Primary prevention of restenosis was the indication for stent insertion. This was the culprit lesion. A guidewire was placed across this lesion. Vessel flow pre intervention was JAIRO 0. Lesion length was 20mm. This lesion was contiguous with LM-distal. The lesion involves a bifurcation with the Ramus. This bifurcation lesion was treated with a single stent, side branch dilated post stent technique and a final kissing balloon post-dilation. Stent insertion was accomplished through an 8 Fr. EBU 3.5 guide. A premounted 3.50 x 22 mm Resolute ALONZO (MOIRA) was deployed with a maximum inflation pressure of 12 atmospheres. Following stent deployment, the lesion was dilated using a 5.00mm NC EUPHORA 08 MM balloon with a maximum inflation pressure of 12 atmospheres. The final outcome was defined as successful. A coronary arteriolar vasodilator was administered as part of the intervention on this lesion. There was no residual stenosis following this intervention. The final JAIRO flow was 3. Proximal 99% Stent insertion was performed on the 99% stenosis in the proximal segment of the LAD. This was a chronic total occlusion lesion. This lesion was designated a type C high risk lesion based on ACC/AHA classification system. Primary prevention of restenosis was the indication for stent insertion. This was the culprit lesion. A guidewire was placed across this lesion. Vessel flow pre intervention was JAIRO 0. Lesion length was 12mm. This lesion was severely calcified. The lesion involves a bifurcation with the D1. This bifurcation lesion was treated with a single stent, side branch dilated post stent technique and a final kissing balloon post-dilation. Stent insertion was accomplished through an 8 Fr. EBU 3.5 guide. The lesion was predilated with a 2.50mm NC EUPHORA 12 MM balloon with a maximum inflation pressure of 12 atmospheres. A premounted 3.00 x 26 mm Resolute ALONZO (MOIRA) was deployed with a maximum inflation pressure of 12 atmospheres. Following stent deployment, the lesion was dilated using a 4.00mm NC EUPHORA 20 MM balloon with a maximum inflation pressure of 12 atmospheres. The final outcome was defined as successful. A coronary arteriolar vasodilator was administered as part of the intervention on this lesion. There was no residual stenosis following this intervention. The final JAIRO flow was 3. &&&. First Diagonal Branch of the LAD Ostial 95% Angioplasty was performed on the 95% stenosis in the ostial segment of the Diagonal 1. This was a de silviano lesion. According to the ACC/AHA classification system, this lesion was a type B2 moderate risk lesion. A guidewire was placed across this lesion. Vessel flow pre intervention was JAIRO 0. Lesion length was 5mm. Angioplasty was accomplished through an 8 Fr EBU 3.5 guide utilizing an EUPHORA 15 MM balloon with a maximum size of 2.00mm and a maximum inflation pressure of 12 atmospheres. The final outcome was defined as successful. The residual stenosis following this intervention was 10%. The final JAIRO flow was 3. Second Diagonal Branch of the LAD Ostial 75% Angioplasty was performed on the 75% stenosis in the ostial segment of the Diagonal 2. This was a de silviano lesion. This lesion was designated a type B2 moderate risk lesion based on ACC/AHA classification system. A guidewire was placed across this lesion. Vessel flow pre intervention was JAIRO 0. Lesion length was 5mm. Angioplasty was accomplished through an 8 Fr EBU 3.5 guide utilizing an EUPHORA 12 MM balloon with a maximum size of 2.00mm and a maximum inflation pressure of 12 atmospheres. The final outcome was defined as successful. A coronary arteriolar vasodilator was administered as part of the intervention on this lesion. The residual stenosis following this intervention was 20%. The final JAIRO flow was 3. Left Circumflex Artery Proximal 90% Thrombectomy was performed on the 90% stenosis in the proximal segment of the LCX. This was a de silviano lesion. According to the ACC/AHA classification system, this lesion was a type B1 high risk lesion. A guidewire was placed across this lesion. Vessel flow pre intervention was JAIRO 3. Lesion length was 10mm. Thrombectomy was accomplished through an 8 Fr EBU 3.5 guide utilizing an [place] Advance. The final outcome was defined as successful. The residual stenosis following this intervention was 10%. The final JAIRO flow was 3. Ramus Ostial 90% Angioplasty was performed on the 90% stenosis in the ostial segment of the ramus. This was a de silviano lesion. This lesion was designated a type B2 high risk lesion based on ACC/AHA classification system. This was the culprit lesion. A guidewire was placed across this lesion. Vessel flow pre intervention was JAIRO 2. Lesion length was 9mm. Angioplasty was accomplished through an 8 Fr EBU 3.5 guide utilizing an EUPHORA 15 MM balloon with a maximum size of 2.00mm and a maximum inflation pressure of 12 atmospheres. The final outcome was defined as successful. The residual stenosis following this intervention was 20%. The final JAIRO flow was 3. Vascular Access: Vascular Access Angiogram: A selective angiogram at the left femoral artery revealed mild diffuse disease. A selective angiogram at the right femoral artery revealed mild diffuse disease. Vascular Ultrasound: Ultrasound of the left femoral artery was used to guide access and showed vessel patent with mild disease. Needle entry was observed. Ultrasound of the right femoral artery was used to guide access and showed vessel patent with mild disease. Needle entry was observed. Vascular Access Management: A 6 Fr Perclose was deployed at the left femoral artery access site. This device was successful. Manual Compression of the left femoral vein access site was performed. Mechanical Compression of the right radial artery access site was performed. A 6 Fr Perclose was deployed at the right femoral artery access site. This device was successful. Dual Antiplatelet (DAPT) Recommendations: Drug eluting stent (MOIRA) inserted. P2Y12 Loading dose Clopidogrel 600 mg PO given in lab. Recommended anti-platelet/anti-thrombotic regimen: Start aspirin 81 mg daily now and continue for indefinitely. Start clopidogrel 75 mg daily now and continue for indefinitely. These recommendations are made at the time of the intervention. Patient and provider preferences or a changing clinical situation may require modification of this regimen. Consult [facility] Interventional Cardiology for questions. This patient has a high DAPT score and may benefit from prolonged (12-30 months) dual antiplatelet therapy if the patient has completed 12 months of DAPT without having a major bleeding or ischemic event and the patient is NOT on chronic anticoagulation. This should be used for guidance in the overall conversation about prolonged dual antiplatelet therapy and not as a recommendation for or against any medical treatment. Consult http://tools.acc.org/DAPTriskapp/#!/content/calculator/ or [facility] Interventional Cardiology for questions Conclusions: * Significant stenosis of the left main * Two vessel coronary artery disease (LAD and LCX) * Successful stent insertion of the proximal LAD lesion * Successful thrombectomy of the proximal LCX lesion * Successful stent insertion of the ostial LAD lesion * Successful angioplasty of the ostial D1 lesion * Successful angioplasty of the ostial Ramus lesion * Successful angioplasty of the ostial D2 lesion * See Dual Antiplatelet (DAPT) Recommendations above * Successful PAVING CONTRACTOR PCI of the LAD with preservation of all side branches. Cardiac catheterization 02/21/2022 Conclusions: ?* Two vessel coronary artery disease (LAD and LCX) ?* Consider viability testing and cardiac surgery consult. Anatomy is ?favorable for PAVING CONTRACTOR PCI. TTE 02/21/22 Interpretation Summary 1. The left ventricle is severely dilated with mildly decreased wall thickness. Systolic function is severely reduced with an EF of 17 % by Renae's biplane method. There are wall motion abnormalities as demonstrated in the attached PDF. 2. The right ventricle is normal in size and global systolic function. The estimated pulmonary artery systolic pressure could not be assessed 3. Right atrium is mildly dilated. 4. There is no hemodynamically significant valvular disease. 5. See remainder of report for additional findings. There is no prior study for comparison. ?? EKG 02/21/22 NSR, LAD, T wave abnormality, septal infarct age undetermined History of Presentation: Gillian Branch is a 71 y.o. male with PMH of DM, HTN, GERD, anxiety who presented to [facility] with symptomshe thought was a panic attack. ?? As per pt he woke up at 3AM yesterday to go to the bathroom, while going back to bed felt like the room was closing on him. He went to his front door to get some fresh air but it helped much. Reports mild chest tightness, like a chest cold and shortness of breath. He came down to drive to the hospital but felt claustrophobic in his car so instead called EMS. Pt was given clonazepam in the ED with improvement in symptoms. He reports 2 previous similar episodes, was seen by PCP in november, started on Lexapro for a presume panic attack/anxiety. Pt reports feeling better after start lexapro but forgot to take it last week. Denies chest pain, orthopnea, PND or pedal edema. No fever, chills or sick conta cts reported. ?? In OSH vitals were stable. Labs with stable CBC, CMP. Trop I 180 >334>458>399 (ULN 60). ProBNP 4600, LDL 82, EKG sinus, LAD, non-specific intraventricular delay. Bedside TTE showed EF 35% with apical WMA. ?? Pt received ASA 325, Plavix 600 mg, heparin drip and IV lasix and now being transferred for further management. ?? At the time of my evaluation, he denies chest pain or shortness of breath. No sick contacts reported. He had received all his COVID shots. Hospital Course: # NSTEMI type I # ASCVD Gillian Branch is a 71 y.o. male with PMH of DM, HTN, GERD and anxiety?who presented to [facility] with symptoms he thought was an anxiety attack. He woke up around 3 AM on 02/19/22 with chest tightness and SOB. Ruled in for NSTEMI. Bedside echo at the OSH showed EF of ~35% with apical WMA's. EKG showed sinus rhythm with poor R wave progression and intraventricular conduction delay. [facility] for further evaluation and management. Formal TTE at [facility] showed EF of 17% and apical WMA's. Troponin at [facility] <0.01 -> 0.02. Decision was made to pursue ischemic evaluation via [facility] on02/21/2022 which showed PAVING CONTRACTOR of his proximal LAD. Access was via right radial artery. A cardiac MRI was done to assess for viability, based on these results the plan will be to proceed with planned PCI ofthe PAVING CONTRACTOR of the LAD. The patient returned to the labor and delivery nurse on 02/27/22 at which time the PAVING CONTRACTOR of the LADwas stented successfully with preservation of all side branches, successful angioplasty of ostial D1, ostial D2, ostial ramus lesions. He was also found to have a thrombus in the LCx that was treated with Integrilin and successful thrombectomy of the proximal LCx. Access was via the right radial artery and was clean, dry and intact on day of discharge. DAPT recommendations are aspirin 81 mg daily indefinitely and plavix 75 mg daily indefinitely. Additional discharge cardiac medications include lasix 20mg daily, losartan 50mg daily, spironolactone 25mg daily, metoprolol xl 50 mg daily, and PRN NTG. # New HFrEF # Ischemic cardiomyopathy Echocardiogram as above with severely reduced LVEF of 17%. Patient did not show any signs or symptoms of fluid overload. His proBNP was elevated at ~5000. He was placed on PO lasix 20 mg daily. GDMT includes: Metoprolol XL 50 mg daily, losartan 50 mg daily, spironolactone 12.5 mg daily, and empagliflozin 10 mg daily. His weight at discharge is: 223lbs. # Excessive alcohol use Patient reported drinkinking ~4-6 beers daily. He did not display signs of alcohol withdrawal throughout his admission. Alcohol cessation and moderation were discussed and encouraged. He was placed on thiamine and folic acid supplementation during his hospitalization. ?? # DM II A1c 7.3%. Home regimen was held and he was placed on sliding scale insulin while inpatient. Resumed on home glimepiride at discharge. Canagliflozin discontinued as he is starting empagliflozin now for HFrEF. ?? # HTN Blood pressure range in the 24 hours prior to discharge: BP: (93-119)/(51-70) . He was placed on losartan and metoprolol while inpatient. Discharge antihypertensive regimen includes: Metoprolol XL 50 mg daily, Losartan 50 mg daily and spironolactone 12.5 mg daily. ?? # Anxiety Continued on home Lexapro. He was provided with PRN ativan. Functional and Cognitive Status: Alert and oriented x 3, ambulatory-independent Important Studies and Lab Data: Labs: Lab Results Component Value Date WBC 6.1 02/28/2022 HGB 15.0 02/28/2022 HCT 43.1 02/28/2022 PLATELET 167 02/28/2022 No results for input(s): INR in the last 168 hours. Lab Results Component Value Date NA 135 02/28/2022 K 4.3 02/28/2022 CL 102 02/28/2022 CO2 24 02/28/2022 BUN 15 02/28/2022 CREATININE 0.89 02/28/2022 No results for input(s): TSH in the last 7068 hours. Recent Labs 02/21/22 0254 HA1C 7.3* No results for input(s): CK, TROPONINT in the last 168 hours. Lab Results Component Value Date CHLPL 132 02/21/2022 HDL 54 02/21/2022 CHOLHDL 2.4 02/21/2022 TRIG 112 02/21/2022 LDLDIRECT 67 02/21/2022 Pending Studies and Lab Data: None Discharge Conditions/Prognosis: Ambulatory without anginal symptoms Discharge to: Home Updated Allergies/ADRs: Allergies Allergen Reactions ??? Corticosteroids (Glucocorticoids) Rash Immunizations Given this Hospitalization: There is no immunization history on file for this patient. Discharge Medications: Your Medications New Medications Dose Details aspirin EC 81 mg Tbec Take 1 tablet by mouth daily. Start taking on: March 01, 2022 81 mg Quantity: 90 tablet Refills: 3 clopidogreL 75 mg Tab Commonly known as: Plavix Take 1 tablet by mouth daily. Start taking on: March 01, 2022 75 mg Quantity: 90 tablet Refills: 3 empagliflozin 10 mg Tab Commonly known as: Jardiance Take 1 tablet by mouth daily. 10 mg Quantity: 30 tablet Refills: 11 furosemide 20 mg Tab Commonly known as: Lasix Take 1 tablet by mouth daily. Start taking on: March 01, 2022 20 mg Quantity: 90 tablet Refills: 3 nitroGLYcerin 0.4 mg Subl Commonly known as: Nitrostat Place 1 tablet under the tongue every 5 minutes as needed for Chest pain. 0.4 mg Quantity: 30 tablet Refills: 0 spironolactone 25 mg Tab Commonly known as: Aldactone Take 0.5 tablets by mouth daily. Start taking on: March 01, 2022 12.5 mg Quantity: 90 tablet Refills: 1 Continued medications with new dosing Dose Details atorvastatin 80 mg Tab Commonly known as: Lipitor Take 1 tablet by mouth every evening. What changed: ?? medication strength ?? how much to take 80 mg Quantity: 90 tablet Refills: 3 Continued medications, unchanged Dose Details Bydureon BCise 2 mg/0.85 mL Atin Generic drug: exenatide microspheres Refills: 0 escitalopram 10 mg Tab Commonly known as: Lexapro Take 10 mg by mouth daily. 10 mg Refills: 0 gabapentin 300 mg Cap Commonly known as: Neurontin Take 300 mg by mouth 3 times daily. 300 mg Refills: 0 glimepiride 4 mg Tab Commonly known as: AMARYL Take 4 mg by mouth 2 times daily. 4 mg Refills: 0 LORazepam 1 mg Tab Commonly known as: Ativan Take 1 mg by mouth 2 times daily as needed. 1 mg Refills: 0 losartan 50 mg Tab Commonly known as: Cozaar Take 50 mg by mouth daily. 50 mg Refills: 0 metoprolol succinate XL 50 mg Tablet sr Commonly known as: Toprol-XL Take 50 mg by mouth daily. 50 mg Refills: 0 RABEprazole 20 mg Tbec Commonly known as: ACIPHEX Take 20 mg by mouth daily. 20 mg Refills: 0 STOPPED Medications hydroCHLOROthiazide 12.5 mg Tab Commonly known as: Hydrodiuril Invokana 100 mg Tab Generic drug: canagliflozin Smoking Status at Discharge: Social History Tobacco Use Smoking Status Former Smoker ??? Types: Cigarettes ??? Quit date: 03/17/1986 ??? Years since quittin.9 Smokeless Tobacco Never Used Instructions Given to Patient at Discharge: Patient Instructions Heart attack You were hospitalized for treatment of your heart attack. A heart attack (myocardial infarction, or NC) occurs when one or more of the coronary arteries, which supply the heart with oxygen-rich blood, is blocked. A blockage usually occurs when plaque inside the artery breaks open and a blood clot forms in the artery. In order to treat this, you underwent a cardiac catheterization at which time a stent was placed to a coronary artery. In order to protect your stent from blood clots forming, you will need to remain on two antiplateletmedications called aspirin and plavix for a minimum of one year. After this time, your can sorter will determine if you need to continue on both blood thinners, or if either can be stopped. You will likely be on aspirin life-long. You were also started on a beta ciara called Metoprolol which will help reduce workload on your heart, as well as a statin called Atorvastatin which will help reduce your cholesterol as well as help to reduce inflammation in your heart arteries. You were provided with a supply of sublingual nitroglycerin. Keep it with you at all times. If you have angina symptoms, such as chest pain or pressure, sit down and rest. Take the first dose of nitroglycerin and let it melt under your tongue. If symptoms go away, do not take any additional. If your symptoms get worse or are not getting better within 5 minutes, take a second nitro tab and call 911 right away. Stay on the phone. The emergency concrete batch plant operator will tell you what to do. Nitroglycerin is an emergency use medication. If you are taking this more than once in a week pleasealert your provider. Nitroglycerin in the original bottle is good for 1 year once the bottle is opened or until the date on the bottle is not used. If the bottom of the bottle is obscured by powder, orthe label falls of discard the nitroglycerin and get a new bottle. You may resume light activity such as walking after your discharge. Do not do any strenuous activityfor the first week after your catheterization, including no lifting anything over 10 lbs. This is tohelp protect your cardiac cath access site and to continue to let it heal properly. You may shower, but do not submerge your cardiac cath access site in water for 1 week (no tubs, hot tubs, lakes, or pools). You may resume driving 48 hours after your catheterization if you were driving prior to your hospitalization. Heart failure Your lab work, chest xray, and ultrasound of your heart indicated you were in congestive heart failure. The ultrasound of your heart also showed that your heart muscle has weakened. We evaluated this further with the cardiac catheterization and believe your blocked arteries caused this weakening. You were started on lasix, a diuretic to help remove fluid from your body. This was started in the hospital through your IV and switched to a pill form before you discharged home. You were started on a beta ciara called metoprolol which will help reduce workload on your heart. You also take Losartan, and were started on spironolactone, medications often used to decrease blood pressure, but also works to decrease work load on the heart. You were also started on empagliflozin (Jardiance), which is a medication used in diabetes, but also restores the heart muscle. These medications all work to help improve and preserve normal heart shape, size, and function. You will need to limit sodium in your diet. We suggest you avoid adding salt to any of your food, and actively monitor the salt content on the labels of the food you buy. Your total salt intake in a 24hour period should not exceed 2,000 grams. Once at home, you will need to weigh yourself without clothing at the same time each day. Record your weight. Call your doctor if you have a sudden weight gain, OR weight loss, such as more than 2 to 3pounds in a day or 5 pounds in a week. (Your doctor may suggest a different range of weight gain.) Asudden weight gain may mean that your heart failure is getting worse. Your weight on day of discharge is 223 lbs STOP canagliflozin (Invokana), START empagliflozin (Jardiance). Anti-coagulation follow up: None needed. Call your doctor if: Chest pain, dyspnea, pain or swelling in legs occurs, or for weight gain of 2 pounds overnight or 5 pounds in 5 days. If you have non-emergent questions, prior to your follow-up visit call: Saturday-Saturday between the hours of 8A-5PM please call the Cardiology Clinic [phone] to speak with a nurse. All other hours please call the Hospital R[facility] Writer [phone] and ask to speak to the fish peddler on-call. Return to work: One week Driving: No driving for 48 hours after cath Follow up Appointments: Doctor Where Phone # Date Time PCP Navin Souza MD [address] [place] [address] 03/05/2022 11:[address] Schaeffer and fellow Dr. Lou [facility] Cardiology [facility] [phone] 04/10/2022 Echo at 8:00 AM Appointment at 10:00 AM Home oxygen therapy: N/A Arrangements for VNA/home care: N/A General Instructions Future Appointments and Orders Future Appointments and Orders Future Appointments Provider Department Dept Phone 04/10/2022 8:00 AM ECHO REGULAR Non-Invasive Cardiology Lab [facility] Arrive at: [facility] [phone] 04/10/2022 10:00 AM Mike Lou MD; Ben Schaeffer MD Cardiology at [facility] Arrive at: [facility] [phone] Future Orders Complete By Expires Echocardiogram Transthoracic [66942 CPT(R)] 02/28/2022 08/30/2022 Process Instructions: Scheduling Instructions: Comments: Questions: Where will study be performed?: [facility] Clinics Is a Bubble Study requested?: Does the patient have Congenital Heart Disease?: Does patient require sedation?: GA rationale: Referral to Cardiac Rehab [NEX430 Custom] As directed Process Instructions: If no progress note charted, please enter Clinical details in comments. Scheduling Instructions: Questions: My question or request is: NSTEMI. Cardiac rehab at [facility]. Discharge References/Attachments None Ramirez Najera PA-C 02/28/2022 documented in this encounter Discharge Instructions Discharge InstructionsRamirez Najera PA - 02/22/2022 2:21 PM EDT Patient InstructionsRamirez Najera PA - 02/27/2022 3:26 PM EDT Heart attack You were hospitalized for treatment of your heart attack. A heart attack (myocardial infarction, or NC) occurs when one or more of the coronary arteries, which supply the heart with oxygen-rich blood, is blocked. A blockage usually occurs when plaque inside the artery breaks open and a blood clot forms in the artery. In order to treat this, you underwent a cardiac catheterization at which time a stent was placed to a coronary artery. In order to protect your stent from blood clots forming, you will need to remain on two antiplateletmedications called aspirin and plavix for a minimum of one year. After this time, your can sorter will determine if you need to continue on both blood thinners, or if either can be stopped. You will likely be on aspirin life-long. You were also started on a beta ciara called Metoprolol which will help reduce workload on your heart, as well as a statin called Atorvastatin which will help reduce your cholesterol as well as help to reduce inflammation in your heart arteries. You were provided with a supply of sublingual nitroglycerin. Keep it with you at all times. If you have angina symptoms, such as chest pain or pressure, sit down and rest. Take the first dose of nitroglycerin and let it melt under your tongue. If symptoms go away, do not take any additional. If your symptoms get worse or are not getting better within 5 minutes, take a second nitro tab and call 911 right away. Stay on the phone. The emergency concrete batch plant operator will tell you what to do. Nitroglycerin is an emergency use medication. If you are taking this more than once in a week pleasealert your provider. Nitroglycerin in the original bottle is good for 1 year once the bottle is opened or until the date on the bottle is not used. If the bottom of the bottle is obscured by powder, orthe label falls of discard the nitroglycerin and get a new bottle. You may resume light activity such as walking after your discharge. Do not do any strenuous activityfor the first week after your catheterization, including no lifting anything over 10 lbs. This is tohelp protect your cardiac cath access site and to continue to let it heal properly. You may shower, but do not submerge your cardiac cath access site in water for 1 week (no tubs, hot tubs, lakes, or pools). You may resume driving 48 hours after your catheterization if you were driving prior to your hospitalization. Heart failure Your lab work, chest xray, and ultrasound of your heart indicated you were in congestive heart failure. The ultrasound of your heart also showed that your heart muscle has weakened. We evaluated this further with the cardiac catheterization and believe your blocked arteries caused this weakening. You were started on lasix, a diuretic to help remove fluid from your body. This was started in the hospital through your IV and switched to a pill form before you discharged home. You were started on a beta ciara called metoprolol which will help reduce workload on your heart. You also take Losartan, and were started on spironolactone, medications often used to decrease blood pressure, but also works to decrease work load on the heart. You were also started on empagliflozin (Jardiance), which is a medication used in diabetes, but also restores the heart muscle. These medications all work to help improve and preserve normal heart shape, size, and function. You will need to limit sodium in your diet. We suggest you avoid adding salt to any of your food, and actively monitor the salt content on the labels of the food you buy. Your total salt intake in a 24hour period should not exceed 2,000 grams. Once at home, you will need to weigh yourself without clothing at the same time each day. Record your weight. Call your doctor if you have a sudden weight gain, OR weight loss, such as more than 2 to 3pounds in a day or 5 pounds in a week. (Your doctor may suggest a different range of weight gain.) Asudden weight gain may mean that your heart failure is getting worse. Your weight on day of discharge is 223 lbs STOP canagliflozin (Invokana), START empagliflozin (Jardiance). Anti-coagulation follow up: None needed. Call your doctor if: Chest pain, dyspnea, pain or swelling in legs occurs, or for weight gain of 2 pounds overnight or 5 pounds in 5 days. If you have non-emergent questions, prior to your follow-up visit call: Saturday-Saturday between the hours of 8A-5PM please call the Cardiology Clinic [phone] to speak with a nurse. All other hours please call the Hospital [facility] Writer [phone] and ask to speak to the fish peddler on-call. Return to work: One week Driving: No driving for 48 hours after cath Follow up Appointments: Doctor Where Phone # Date Time PCP Navin Souza MD [address] [place], [place] [address] 03/05/2022 11:[address] Schaeffer and fellow Dr. Lou [facility] Cardiology 4[facility] Clinic [phone] 04/10/2022 Echo at 8:00 AM Appointment at 10:00 AM Home oxygen therapy: N/A Arrangements for VNA/home care: N/A documented in this encounter Medications at Time of Discharge Medication Sig Dispensed Refills Start Date End Date empagliflozin (Jardiance) Take 1 tablet by 30 [...] mg Take 1 mg by mouth 0 /12/2021 Tablet 2 times daily as needed. losartan (Cozaar) 50 mg Take 50 mg by mouth 0 Tablet daily. metoprolol succinate XL Take 50 mg by mouth 0 10/2020 (Toprol-XL) 50 mg Tablet daily. Sustained Release 24 hr RABEprazole (ACIPHEX) 20 Take 20 mg by mouth 0 mg Tablet, Delayed Release daily. (E.C.) empagliflozin (Jardiance) Take 1 tablet by 30 tablet 11 02/1403/02/2022 10 mg Tablet mouth daily. exenatide microspheres 0 04/06/2021 (Bydureon BCise) 2 mg/0.85 mL Auto-Injector gabapentin (Neurontin) 300 Take 300 mg by 0 10/1107/25/2022 mg Capsule mouth 3 times daily. documented as of this encounter Progress Notes Jamaica Lockwood RN - 02/28/2022 1:55 PM EDT Pt to d/c home with family. IVs and tele removed. AVS discussed with pt, RN answered all questions pt verbalized understanding. All belongings returned to pt. Ben Schaeffer MD - 02/28/2022 9:00 AM EDT Images from the original note were not included. Inpatient Cardiology Progress Note Patient Name: Gillian Branch Service: DOUBLE NEEDLE STITCHER / PA Responsible Attending: Ben Schaeffer MD Reason for continued hospitalization: NSTEMI New HFrEF - LVEF ~17 % S/p repeat LHC with PCI of PAVING CONTRACTOR of LAD 02/27 Active Problems: Active Hospital Problems Diagnosis ??? NSTEMI (non-ST elevated myocardial infarction) ??? Acute systolic congestive heart failure Resolved Hospital Problems No resolved problems to display. Interval History: Patient did well overnight with no chest pain or shortness of breath. Underwent repeat LHC yestrerday w/ PCI of PAVING CONTRACTOR. Discharge today. Review of Systems: Review of Systems Respiratory: Negative for shortness of breath. Cardiovascular: Negative for chest pain. All other systems reviewed and are negative. Telemetry: HR: 50-70s sinus bradycardia, sinus rhythm with rare PVC Meds: Scheduled Meds: ? ? insulin lispro 2-8 Units Subcutaneous 4 Times Daily AC & HS ??? senna-docusate 2 tablet Oral Daily ??? lidocaine 1 patch Transdermal Q24H And ??? lidocaine 1 patch Transdermal Q24H ??? heparin (porcine) 5,000 Units Subcutaneous 2 times per day ??? insulin glargine (Lantus;Semglee) (100 unit/mL) subcutaneous injection 10 Units Subcutaneous Nightly ??? insulin lispro 0-8 Units Subcutaneous TID WC ??? clopidogreL 75 mg Oral Daily ??? metoprolol tartrate 25 mg Oral Q6H ERIC ??? spironolactone 12.5 mg Oral Daily ??? furosemide 20 mg Oral Daily ??? atorvastatin 40 mg Oral QPM ??? escitalopram 10 mg Oral Daily ??? gabapentin 300 mg Oral TID ??? losartan 50 mg Oral Daily ??? sodium chloride 0.9 % (flush) 5 mL Intravenous BID ??? aspirin EC 81 mg Oral Daily ??? pantoprazole EC 40 mg Oral Daily ??? thiamine 100 mg Oral Daily ??? folic acid 1,000 mcg Oral Daily ??? multivitamin with minerals 1 tablet Oral Daily Continuous Infusions: PRN Meds:nitroGLYcerin, polyethylene glycoL (MIRALAX) oral powder, sodium chloride 0.9 % (flush), lidocaine, nitroGLYcerin, glucose 40% oral geL OR dextrose 10% OR glucagon, acetaminophen, LORazepam Physical Exam: Vital Signs: Last value Range last 24 hrs Temperature Temp: 36.7 ??C (98.1 ??F) Temp: [36 ??C (96.8 ??F)-36.7 ??C (98.1 ??F)] Heart Rate Heart Rate: 91 Heart Rate: [60-91] Blood Pressure BP: 111/70 BP: (89-119)/(51-79) Respiratory Rate Resp: 18 Resp: [9-22] SpO2 SpO2: 91 % SpO2: [91 %-100 %] Patient Vitals for the past 168 hrs: Weight 02/27/22 0631 101.2 kg (223 lb 1.7 oz) 02/26/22 0600 101.2 kg (223 lb 1.7 oz) 02/25/22 0542 102.4 kg (225 lb 12 oz) 02/24/22 0504 103.1 kg (227 lb 4.7 oz) 02/23/22 0357 104 kg (229 lb 4.5 oz) 02/22/22 0449 105.4 kg (232 lb 6.4 oz) Intake/Output Summary (Last 24 hours) at 02/28/2022 0900 Last data filed at 02/28/2022 0813 Gross per 24 hour Intake 676 ml Output 1500 ml Net -824 ml Physical Exam Vitals reviewed. Constitutional: General: He is not in acute distress. Appearance: He is well-developed. He is not diaphoretic. HENT: Head: Normocephalic and atraumatic. Eyes: General: Right eye: No discharge. Left eye: No discharge. Cardiovascular: Rate and Rhythm: Normal rate and regular rhythm. Pulses: Intact distal pulses. Heart sounds: Normal heart sounds. No murmur heard. No friction rub. No gallop. Pulmonary: Effort: Pulmonary effort is normal. No respiratory distress. Breath sounds: Normal breath sounds. No wheezing or rales. Abdominal: General: Bowel sounds are normal. There is no distension. Palpations: Abdomen is soft. Tenderness: There is no abdominal tenderness. There is no rebound. Musculoskeletal: General: Normal range of motion. Cervical back: Normal range of motion and neck supple. Skin: General: Skin is warm and dry. Comments: R radial access site C/D/I. Bilateral groin sites C/D/I, no hematoma, tenderness, or bruit. Neurological: Mental Status: He is alert and oriented to person, place, and time. Psychiatric: Behavior: Behavior normal. Lab Comments: Recent Labs 02/28/2233402/27/2233602/26/22 0355 WBC 6.1 6.2 4.8 HGB 15.0 16.6* 16.5 HCT 43.1 48.5 48.1 PLATELET 167 178 173 No results for input(s): INR in the last 168 hours. Recent Labs 02/28/2233402/27/227 02/26/22 0355 NA 135 135 137 K 4.3 4.0 4.0 CL 102 100 104 CO2 24 23 22 BUN 15 17 14 CREATININE 0.89 0.72* 0.75* No results for input(s): AST, ALT, ALKPHOS, BILITOT, BILIDIR in the last 168 hours. Recent Labs 02/28/2233402/27/2233602/26/22 0355 CALCIUM 9.0 9.2 9.4 MAGNESIUM 0.79 0.80 0.79 Recent Labs 02/21/22 0904 TROPONINT 0.01* Pertinent Radiographic/Diagnostic Results: Cardiac catheterization 02/27/2022 Conclusions: * Significant stenosis of the left main * Two vessel coronary artery disease (LAD and LCX) * Successful stent insertion of the proximal LAD lesion * Successful thrombectomy of the proximal LCX lesion * Successful stent insertion of the ostial LAD lesion * Successful angioplasty of the ostial D1 lesion * Successful angioplasty of the ostial Ramus lesion * Successful angioplasty of the ostial D2 lesion * See Dual Antiplatelet (DAPT) Recommendations above * Successful PAVING [employer]OR PCI of the LAD with preservation of all side branches. TTE 02/21/22 Interpretation Summary 1. The left ventricle is severely dilated with mildly decreased wall thickness. Systolic function is severely reduced with an EF of 17 % by Renae's biplane method. There are wall motion abnormalities as demonstrated in the attached PDF. 2. The right ventricle is normal in size and global systolic function. The estimated pulmonary artery systolic pressure could not be assessed 3. Right atrium is mildly dilated. 4. There is no hemodynamically significant valvular disease. 5. See remainder of report for additional findings. There is no prior study for comparison. Cardiac cath: 02/21/22 Conclusions: * Two vessel coronary artery disease (LAD and LCX) * Consider viability testing and cardiac surgery consult. Anatomy is favorable for PAVING CONTRACTOR PCI. Cardiac MRI: 02/22/22 IMPRESSION Severe dilatation of the left ventricle. Severely reduced left ventricular ejection fraction of 22%. ?? Subendocardial delayed contrast enhancement in the basilar to mid anterior, anterolateral, and anteroseptal wall. Enhancement of less than 50% of the myocardial wall thickness is consistent with persistent viability. ?? Transmural enhancement at the distal anterior wall and anterior aspect of the apex. Unlikely to be viable. ?? UNEXPECTED FINDING of a 14 mm laminar thrombus in the anterior distal aspect of the left ventricle. ?? Normal size of the right ventricle and normal right ventricular function. EC02/25/22 HR 61 sinus rhythm with no acute changes ?? Assessment: Gillian Branch is a 71 y.o. male with PMH of DM, HTN, GERD and anxiety [facility]. He woke up around 3 AM on 02/19/22 with chest tightness and SOB. Ruled in for NSTEMI. EKG showed sinus rhythm with poor R wave progression and intraventricular conduction delay. TTE showed EF of 17% and apical WMA's. Trop at OSH +; here <0.01 -> 0.02. Presentation consistent with NSTEMI and new HFrEF concerning for ischemic cardiomyopathy. Cardiac catheterization shows PAVING CONTRACTOR of proximal LAD with collaterals from the RCA. Cardiac MRI shows some viability in the basilar to mid anterior, anterolateral and anteroseptal bowers. Unlikely to be viable distal anterior wall and anterior aspect of the apex. An unexpected finding on cMR of a 14 mm laminar thrombus in the anterior distal aspect of the left ventricle. Patient underwent repeat catheterization on02/27 at which time successful PAVING [employer]OR PCI of LAD was performed, along with angioplasty of oD1, oD2, and o Ramus lesions. Thrombectomy was also performed on the LCx and Integrilin was utilized. Patient is doing well and is medically ready for discharge. . Plan: # NSTEMI # ASCVD TTE w/ LVEF 17% S/p ASA 325 mg and Plavix 300 mg loads S/p [facility] with successful PCI PAVING [employer]OR of LAD and thrombectomy Continue daily aspirin and plavix Continue metoprolol 25 mg q6 hrs Continue atorvastatin 40 mg nighty # New HFrEF # Ischemic cardiomyopathy TTE w/ EF 17% Continue PO lasix 20 mg daily Continue metoprolol tartrate with plan to transition to succinate at discharge Continue Losartan 50 mg daily and spironolactone 12.5 mg daily Consider additional GDMT # Excessive alcohol use Drinks ~4-6 beers daily Monitor for alcohol withdrawal (no hx of w/d) Encourage alcohol cessation/moderation Thiamine Folic acid # DM II Hold home regimen A1c 7.3% SSI Monitor FSG Consider Jardiance for HFrEF and DM # HTN BP: (89-119)/(51-79) 24 hour BP range Continue Losartan and metoprolol # Anxiety Continue Lexapro PRN ativan Code status: Full code DVT prophylaxis- Heparin SC q 12 hours Discussed with MD Ramirez Mistry PA-C 02/28/2022 Pager #: [phone] Cardiovascular Attending Note I shared this visit with Ramirez Najera PA-C. I performed and supplemented the history, physical examination, and interval ROS with my own assessment and plan of care. My role was to review and update the management of the active cardiovascular issues and to engage the patient in the medical decision-making. I constructed the plan of care, as detailed in the note and addressed the patient's questions. Ben Schaeffer M.D. Robert Delarosa MD - 02/28/2022 7:35 AM EDT I was called by the patient's nurse stating that he has a tick on his back. I went and examined the patient and he had a large brown tick on his left buttock. The tick was removed carefully not to leave the head behind. It was placed in a specimen container and sent for the lab for identification. He was given 1 dose of 200 mg doxycycline for prophylaxis Ben Schaeffer MD - 02/27/2022 11:10 AM EDT Images from the original note were not included. Inpatient Cardiology Progress Note Patient Name: Gillian Branch Service: DOUBLE NEEDLE STITCHER / PA Responsible Attending: Ben Schaeffer MD Reason for continued hospitalization: NSTEMI New HFrEF - LVEF ~17 % S/p repeat LHC with PCI of PAVING [employer]OR of LAD 02/27 Active Problems: Active Hospital Problems Diagnosis ??? NSTEMI (non-ST elevated myocardial infarction) ??? Acute systolic congestive heart failure Resolved Hospital Problems No resolved problems to display. Interval History: Patient did well overnight with no chest pain or shortness of breath. Underwent repeat LHC today for PCI of his PAVING CONTRACTOR. On bed rest until 5:30 PM. Review of Systems: Review of Systems Respiratory: Negative for shortness of breath. Cardiovascular: Negative for chest pain. All other systems reviewed and are negative. Telemetry: HR: 50-70s sinus bradycardia, sinus rhythm with rare PVC Meds: Scheduled Meds: ??? [MAR Hold] senna-docusate 2 tablet Oral Daily ??? [MAR Hold] lidocaine 1 patch Transdermal Q24H And ??? [MAR Hold] lidocaine 1 patch Transdermal Q24H ??? [MAR Hold] heparin (porcine) 5,000 Units Subcutaneous 2 times per day ??? [MAR Hold] insulin glargine (Lantus;Semglee) (100 unit/mL) subcutaneous injection 10 Units Subcutaneous Nightly ??? [MAR Hold] insulin lispro 0-8 Units Subcutaneous TID WC ? ? [MAR Hold] insulin lispro 1-4 Units Subcutaneous 4 Times Daily AC & HS ??? [MAR Hold] clopidogreL 75 mg Oral Daily ??? [MAR Hold] metoprolol tartrate 25 mg Oral Q6H ERIC ??? [NOV Hold] spironolactone 12.5 mg Oral Daily ??? [NOV Hold] furosemide 20 mg Oral Daily ??? [NOV Hold] atorvastatin 40 mg Oral QPM ??? [NOV Hold] escitalopram 10 mg Oral Daily ??? [NOV Hold] gabapentin 300 mg Oral TID ??? [NOV Hold] losartan 50 mg Oral Daily ??? [NOV Hold] sodium chloride 0.9 % (flush) 5 mL Intravenous BID ??? [NOV Hold] aspirin EC 81 mg Oral Daily ??? [NOV Hold] pantoprazole EC 40 mg Oral Daily ??? [NOV Hold] thiamine 100 mg Oral Daily ??? [NOV Hold] folic acid 1,000 mcg Oral Daily ??? [NOV Hold] multivitamin with minerals 1 tablet Oral Daily Continuous Infusions: ??? eptifibatide 2 mcg/kg/min (02/27/22 1014) PRN Meds:aspirin, fentaNYL (PF), midazolam (PF), heparin (porcine), eptifibatide, eptifibatide, [NOVHold] polyethylene glycoL (MIRALAX) oral powder, [NOV Hold] sodium chloride 0.9 % (flush), [NOV Hold] lidocaine, [NOV Hold] nitroGLYcerin, [NOV Hold] glucose 40% oral geL OR [NOV Hold] dextrose 10% OR [NOV Hold] glucagon, [NOV Hold] acetaminophen, [NOV Hold] LORazepam Physical Exam: Vital Signs: Last value Range last 24 hrs Temperature Temp: 36.8 ??C (98.2 ??F) Temp: [36.5 ??C (97.7 ??F)-36.9 ??C (98.4 ??F)] Heart Rate Heart Rate: 71 Heart Rate: [62-71] Blood Pressure BP: 105/70 BP: (97-136)/(64-77) Respiratory Rate Resp: 16 Resp: [15-20] SpO2 SpO2: 98 % SpO2: [93 %-99 %] Patient Vitals for the past 168 hrs: Weight 02/27/22 0631 101.2 kg (223 lb 1.7 oz) 02/26/22 0600 101.2 kg (223 lb 1.7 oz) 02/25/22 0542 102.4 kg (225 lb 12 oz) 02/24/22 0504 103.1 kg (227 lb 4.7 oz) 02/23/22 0357 104 kg (229 lb 4.5 oz) 02/22/22 0449 105.4 kg (232 lb 6.4 oz) 02/21/22 0409 106.1 kg (233 lb 14.5 oz) 02/20/22 1958 106.9 kg (235 lb 10.8 oz) Intake/Output Summary (Last 24 hours) at 02/27/2022 1110 Last data filed at 02/27/2022 0800 Gross per 24 hour Intake 450 ml Output 2609 ml Net -2159 ml Physical Exam Vitals reviewed. Constitutional: General: He is not in acute distress. Appearance: He is well-developed. He is not diaphoretic. HENT: Head: Normocephalic and atraumatic. Eyes: General: Right eye: No discharge. Left eye: No discharge. Cardiovascular: Rate and Rhythm: Normal rate and regular rhythm. Pulses: Intact distal pulses. Heart sounds: Normal heart sounds. No murmur heard. No friction rub. No gallop. Pulmonary: Effort: Pulmonary effort is normal. No respiratory distress. Breath sounds: Normal breath sounds. No wheezing or rales. Abdominal: General: Bowel sounds are normal. There is no distension. Palpations: Abdomen is soft. Tenderness: There is no abdominal tenderness. There is no rebound. Musculoskeletal: General: Normal range of motion. Cervical back: Normal range of motion and neck supple. Skin: General: Skin is warm and dry. Comments: TR band in place on R wrist Neurological: Mental Status: He is alert and oriented to person, place, and time. Psychiatric: Behavior: Behavior normal. Lab Comments: Recent Labs 02/27/22 0337 02/26/22 0355 02/24/22 0315 WBC 6.2 4.8 6.4 HGB 16.6* 16.5 16.0 HCT 48.5 48.1 47.2 PLATELET 178 173 167 No results for input(s): INR in the last 168 hours. Recent Labs 02/27/22 0337 02/26/22 0355 02/24/22 0315 NA 135 137 136 K 4.0 4.0 3.8 CL 100 104 101 CO2 23 22 24 BUN 17 14 14 CREATININE 0.72* 0.75* 0.79* No results for input(s): AST, ALT, ALKPHOS, BILITOT, BILIDIR in the last 168 hours. Recent Labs 02/27/22 0337 02/26/22 0355 02/24/22 0315 CALCIUM 9.2 9.4 9.2 MAGNESIUM 0.80 0.79 -- Recent Labs 02/21/22 0904 02/21/22 0254 02/20/222031 TROPONINT 0.01* 0.02* <0.01 Pertinent Radiographic/Diagnostic Results: Cardiac catheterization 02/27/2022 Pending TTE 02/21/22 Interpretation Summary 1. The left ventricle is severely dilated with mildly decreased wall thickness. Systolic function is severely reduced with an EF of 17 % by Renae's biplane method. There are wall motion abnormalities as demonstrated in the attached PDF. 2. The right ventricle is normal in size and global systolic function. The estimated pulmonary artery systolic pressure could not be assessed 3. Right atrium is mildly dilated. 4. There is no hemodynamically significant valvular disease. 5. See remainder of report for additional findings. There is no prior study for comparison. Cardiac cath: 02/21/22 Conclusions: * Two vessel coronary artery disease (LAD and LCX) * Consider viability testing and cardiac surgery consult. Anatomy is favorable for PAVING [employer]OR PCI. Cardiac MRI: 02/22/22 IMPRESSION Severe dilatation of the left ventricle. Severely reduced left ventricular ejection fraction of 22%. ?? Subendocardial delayed contrast enhancement in the basilar to mid anterior, anterolateral, and anteroseptal wall. Enhancement of less than 50% of the myocardial wall thickness is consistent with persistent viability. ?? Transmural enhancement at the distal anterior wall and anterior aspect of the apex. Unlikely to be viable. ?? UNEXPECTED FINDING of a 14 mm laminar thrombus in the anterior distal aspect of the left ventricle. ?? Normal size of the right ventricle and normal right ventricular function. EC02/25/22 HR 61 sinus rhythm with no acute changes ?? Assessment: Gillian Branch is a 71 y.o. male with PMH of DM, HTN, GERD and anxiety [facility]. He woke up around 3 AM on 02/19/22 with chest tightness and SOB. Ruled in for NSTEMI. EKG showed sinus rhythm with poor R wave progression and intraventricular conduction delay. TTE showed EF of 17% and apical WMA's. Trop at OSH +; here <0.01 -> 0.02. Presentation consistent with NSTEMI and new HFrEF concerning for ischemic cardiomyopathy. Cardiac catheterization shows PAVING CONTRACTOR of proximal LAD with collaterals from the RCA. Cardiac MRI shows some viability in the basilar to mid anterior, anterolateral and anteroseptal bowers. Unlikely to be viable distal anterior wall and anterior aspect of the apex. After discussion, plan for PCI of the PAVING CONTRACTOR of the LADplus or minus IABP support on Tuesday 02/27. . After further review of the cardiac MRI, the LV thrombus appears pinpoint and IV heparin was stopped. Plan: # NSTEMI # ASCVD TTE w/ LVEF 17% S/p ASA 325 mg and Plavix 300 mg loads Continue daily aspirin, restarted plavix dosing Continue metoprolol 25 mg q6 hrs Continue atorvastatin 40 mg nighty PAVING CONTRACTOR of LAD found; PCI to PAVING CONTRACTOR done 02/27 # New HFrEF # Ischemic cardiomyopathy TTE w/ EF 17% Continue PO lasix 20 mg daily Continue metoprolol tartrate with plan to transition to succinate at discharge Continue Losartan 50 mg daily and spironolactone 12.5 mg daily Consider additional GDMT # Excessive alcohol use Drinks ~4-6 beers daily Monitor for alcohol withdrawal (no hx of w/d) Encourage alcohol cessation/moderation Thiamine Folic acid # DM II Hold home regimen A1c 7.3% SSI Monitor FSG Consider Jardiance for HFrEF and DM # HTN BP: (97-136)/(64-77) 24 hour BP range Continue Losartan and increased metoprolol # Anxiety Continue Lexapro PRN ativan Code status: Full code DVT prophylaxis- Heparin SC q 12 hours Discussed with MD Ramirez Mistry PA-C 02/27/2022 Pager #: [phone] Cardiovascular Attending Note I shared this visit with Ramirez Najera PA-C. I performed and supplemented the history, physical examination, and interval ROS with my own assessment and plan of care. My role was to review and update the management of the active cardiovascular issues and to engage the patient in the medical decision-making. I constructed the plan of care, as detailed in the note and addressed the patient's questions. Ben Schaeffer M.D. Ben Schaeffer MD - 02/26/2022 9:09 AM EDT Images from the original note were not included. Inpatient Cardiology Progress Note Patient Name: Gillian Branch Service: DOUBLE NEEDLE STITCHER / PA Responsible Attending: Ben Schaeffer MD Reason for continued hospitalization: NSTEMI New HFrEF - LVEF ~17 % P[employer]ING [employer] of LAD seen on cardiac cath, planned PCI for Monday 02/26 Active Problems: Active Hospital Problems Diagnosis ??? NSTEMI (non-ST elevated myocardial infarction) ??? Acute systolic congestive heart failure Resolved Hospital Problems No resolved problems to display. Interval History: Patient did well overnight with no chest pain or shortness of breath. Aware of theplan for PCI of his PAVING CONTRACTOR today. Review of Systems: Review of Systems Respiratory: Negative for shortness of breath. Cardiovascular: Negative for chest pain. All other systems reviewed and are negative. Telemetry: HR: 50-70s sinus bradycardia, sinus rhythm with rare PVC Meds: Scheduled Meds: ??? heparin (porcine) 5,000 Units Subcutaneous 2 times per day ??? insulin glargine (Lantus;Semglee) (100 unit/mL) subcutaneous injection 10 Units Subcutaneous Nightly ??? insulin lispro 0-8 Units Subcutaneous TID WC ? ? insulin lispro 1-4 Units Subcutaneous 4 Times Daily AC & HS ??? clopidogreL 75 mg Oral Daily ??? metoprolol tartrate 25 mg Oral Q6H ERIC ??? spironolactone 12.5 mg Oral Daily ??? furosemide 20 mg Oral Daily ??? atorvastatin 40 mg Oral QPM ??? escitalopram 10 mg Oral Daily ??? gabapentin 300 mg Oral TID ??? losartan 50 mg Oral Daily ??? sodium chloride 0.9 % (flush) 5 mL Intravenous BID ??? aspirin EC 81 mg Oral Daily ??? pantoprazole EC 40 mg Oral Daily ??? thiamine 100 mg Oral Daily ??? folic acid 1,000 mcg Oral Daily ??? multivitamin with minerals 1 tablet Oral Daily Continuous Infusions: PRN Meds:sodium chloride 0.9 % (flush), lidocaine, nitroGLYcerin, glucose 40% oral geL OR dextrose 10% OR glucagon, acetaminophen, LORazepam Physical Exam: Vital Signs: Last value Range last 24 hrs Temperature Temp: 36.5 ??C (97.7 ??F) Temp: [36.5 ??C (97.7 ??F)-37.2 ??C (99 ??F)] Heart Rate Heart Rate: 61 Heart Rate: [61-66] Blood Pressure BP: 119/71 BP: (113-122)/(61-80) Respiratory Rate Resp: 16 Resp: [16-18] SpO2 SpO2: 96 % SpO2: [96 %-98 %] Patient Vitals for the past 168 hrs: Weight 02/26/22 0600 101.2 kg (223 lb 1.7 oz) 02/25/22 0542 102.4 kg (225 lb 12 oz) 02/24/22 0504 103.1 kg (227 lb 4.7 oz) 02/23/22 0357 104 kg (229 lb 4.5 oz) 02/22/22 0449 105.4 kg (232 lb 6.4 oz) 02/21/22 0409 106.1 kg (233 lb 14.5 oz) 02/20/22 1958 106.9 kg (235 lb 10.8 oz) Intake/Output Summary (Last 24 hours) at 02/26/2022 0909 Last data filed at 02/26/2022 0625 Gross per 24 hour Intake 1540 ml Output 2875 ml Net -1335 ml Physical Exam Vitals reviewed. Constitutional: General: He is not in acute distress. Appearance: He is well-developed. He is not diaphoretic. HENT: Head: Normocephalic and atraumatic. Eyes: General: Right eye: No discharge. Left eye: No discharge. Cardiovascular: Rate and Rhythm: Normal rate and regular rhythm. Pulses: Intact distal pulses. Heart sounds: Normal heart sounds. No murmur heard. No friction rub. No gallop. Pulmonary: Effort: Pulmonary effort is normal. No respiratory distress. Breath sounds: Normal breath sounds. No wheezing or rales. Abdominal: General: Bowel sounds are normal. There is no distension. Palpations: Abdomen is soft. Tenderness: There is no abdominal tenderness. There is no rebound. Musculoskeletal: General: Normal range of motion. Cervical back: Normal range of motion and neck supple. Skin: General: Skin is warm and dry. Neurological: Mental Status: He is alert and oriented to person, place, and time. Psychiatric: Behavior: Behavior normal. Lab Comments: Recent Labs 02/26/22 0355 02/24/225 02/23/22 0352 WBC 4.8 6.4 4.9 HGB 16.5 16.0 16.5 HCT 48.1 47.2 48.2 PLATELET 173 167 156 No results for input(s): INR in the last 168 hours. Recent Labs 02/26/22 0355 02/24/2231402/23/22 0352 NA 137 136 136 K 4.0 3.8 3.9 CL 104 101 102 CO2 22 24 23 BUN 14 14 11 CREATININE 0.75* 0.79* 0.72* No results for input(s): AST, ALT, ALKPHOS, BILITOT, BILIDIR in the last 168 hours. Recent Labs 02/26/22 0355 02/24/2231402/23/22 035 CALCIUM 9.4 9.2 9.4 MAGNESIUM 0.79 -- -- Recent Labs 02/21/22 0904 02/21/22 0254 02/20/222031 TROPONINT 0.01* 0.02* <0.01 Pertinent Radiographic/Diagnostic Results: TTE 02/21/22 Interpretation Summary 1. The left ventricle is severely dilated with mildly decreased wall thickness. Systolic function is severely reduced with an EF of 17 % by Renae's biplane method. There are wall motion abnormalities as demonstrated in the attached PDF. 2. The right ventricle is normal in size and global systolic function. The estimated pulmonary artery systolic pressure could not be assessed 3. Right atrium is mildly dilated. 4. There is no hemodynamically significant valvular disease. 5. See remainder of report for additional findings. There is no prior study for comparison. Cardiac cath: 02/21/22 Conclusions: * Two vessel coronary artery disease (LAD and LCX) * Consider viability testing and cardiac surgery consult. Anatomy is favorable for PAVING [employer]OR PCI. Cardiac MRI: 02/22/22 IMPRESSION Severe dilatation of the left ventricle. Severely reduced left ventricular ejection fraction of 22%. ?? Subendocardial delayed contrast enhancement in the basilar to mid anterior, anterolateral, and anteroseptal wall. Enhancement of less than 50% of the myocardial wall thickness is consistent with persistent viability. ?? Transmural enhancement at the distal anterior wall and anterior aspect of the apex. Unlikely to be viable. ?? UNEXPECTED FINDING of a 14 mm laminar thrombus in the anterior distal aspect of the left ventricle. ?? Normal size of the right ventricle and normal right ventricular function. EC02/25/22 HR 61 sinus rhythm with no acute changes ?? Assessment: Gillian Branch is a 71 y.o. male with PMH of DM, HTN, GERD and anxiety [facility]. He woke up around 3 AM on 02/19/22 with chest tightness and SOB. Ruled in for NSTEMI. EKG showed sinus rhythm with poor R wave progression and intraventricular conduction delay. TTE showed EF of 17% and apical WMA's. Trop at OSH +; here <0.01 -> 0.02. Presentation consistent with NSTEMI and new HFrEF concerning for ischemic cardiomyopathy. Cardiac catheterization shows PAVING [employer]OR of proximal LAD with collaterals from the RCA. Cardiac MRI shows some viability in the basilar to mid anterior, anterolateral and anteroseptal bowers. Unlikely to be viable distal anterior wall and anterior aspect of the apex. An unexpected finding on cMR of a 14 mm laminar thrombus in the anterior distal aspect of the left ventricle. After discussion, plan for PCI of the PAVING [employer]OR of the LAD plus or minus IABP support on Monday 02/26 . After further review of the cardiac MRI, the LV thrombus appears pinpoint and IV heparin was stopped. Plan: # NSTEMI # ASCVD TTE w/ LVEF 17% S/p ASA 325 mg and Plavix 300 mg loads Continue daily aspirin, restarted plavix dosing Continue metoprolol 25 mg q6 hrs Continue atorvastatin 40 mg nighty PAVING [employer]OR of LAD found; NPO for staged PCI 02/26 # New HFrEF # Ischemic cardiomyopathy TTE w/ EF 17% Continue PO lasix 20 mg daily Continue metoprolol tartrate with plan to transition to succinate at discharge Continue Losartan 50 mg daily and spironolactone 12.5 mg daily Consider additional GDMT # Excessive alcohol use Drinks ~4-6 beers daily Monitor for alcohol withdrawal (no hx of w/d) Encourage alcohol cessation/moderation Thiamine Folic acid # DM II Hold home regimen A1c 7.3% SSI Monitor FSG Consider Jardiance for HFrEF and DM # HTN BP: (113-122)/(61-80) 24 hour BP range Continue Losartan and increased metoprolol # Anxiety Continue Lexapro PRN ativan Code status: Full code DVT prophylaxis- Heparin SC q 12 hours Discussed with MD Ramirez Mistry PA-C 02/26/2022 Pager #: [phone] Cardiovascular Attending Note I shared this visit with Ramirez Najera PA-C. I performed and supplemented the history, physical examination, and interval ROS with my own assessment and plan of care. My role was to review and update the management of the active cardiovascular issues and to engage the patient in the medical decision-making. I constructed the plan of care, as detailed in the note and addressed the patient's questions. Ben Schaeffer M.D. Oliver Murry APRN - 02/25/2022 8:45 AM EDT Images from the original note were not included. Inpatient Cardiology Progress Note Patient Name: Gillian Branch Service: DOUBLE NEEDLE STITCHER / PA Responsible Attending: Ben Schaeffer MD Reason for continued hospitalization: NSTEMI New HFrEF - LVEF ~17 % P[employer]ING [employer] of LAD seen on cardiac cath, planned PCI for Saturday after review of the cardiac MRI Active Problems: Active Hospital Problems Diagnosis ??? NSTEMI (non-ST elevated myocardial infarction) ??? Acute systolic congestive heart failure Resolved Hospital Problems No resolved problems to display. Interval History: Patient did well overnight with no chest pain or shortness of breath. Aware of theplan for PCI of his PAVING CONTRACTOR LAD on Saturday. Dr. Schaeffer's examination of the MRI with Dr. Veras with little clot seen in the LV. Review of Systems: Review of Systems Constitutional: It felt good to walk around yesterday. Respiratory: Negative for shortness of breath. Cardiovascular: Negative for chest pain. All other systems reviewed and are negative. Telemetry: HR: 54-73 sinus bradycardia, sinus rhythm with rare PVC Meds: Scheduled Meds: ??? heparin (porcine) 5,000 Units Subcutaneous 2 times per day ??? insulin glargine (Lantus;Semglee) (100 unit/mL) subcutaneous injection 10 Units Subcutaneous Nightly ??? insulin lispro 0-8 Units Subcutaneous TID WC ? ? insulin lispro 1-4 Units Subcutaneous 4 Times Daily AC & HS ??? clopidogreL 75 mg Oral Daily ??? metoprolol tartrate 25 mg Oral Q6H ERIC ??? spironolactone 12.5 mg Oral Daily ??? furosemide 20 mg Oral Daily ??? atorvastatin 40 mg Oral QPM ??? escitalopram 10 mg Oral Daily ??? gabapentin 300 mg Oral TID ??? losartan 50 mg Oral Daily ??? sodium chloride 0.9 % (flush) 5 mL Intravenous BID ??? aspirin EC 81 mg Oral Daily ??? pantoprazole EC 40 mg Oral Daily ??? thiamine 100 mg Oral Daily ??? folic acid 1,000 mcg Oral Daily ??? multivitamin with minerals 1 tablet Oral Daily Continuous Infusions: PRN Meds:sodium chloride 0.9 % (flush), lidocaine, nitroGLYcerin, glucose 40% oral geL OR dextrose 10% OR glucagon, acetaminophen, LORazepam Physical Exam: Vital Signs: Last value Range last 24 hrs Temperature Temp: 36.9 ??C (98.4 ??F) Temp: [36.4 ??C (97.5 ??F)-36.9 ??C (98.4 ??F)] Heart Rate Heart Rate: 62 Heart Rate: [61-63] Blood Pressure BP: 112/61 BP: (112-127)/(61-77) Respiratory Rate Resp: 16 Resp: [15-16] SpO2 SpO2: 95 % SpO2: [92 %-98 %] Patient Vitals for the past 168 hrs: Weight 02/25/22 0542 102.4 kg (225 lb 12 oz) 02/24/22 0504 103.1 kg (227 lb 4.7 oz) 02/23/22 0357 104 kg (229 lb 4.5 oz) 02/22/22 0449 105.4 kg (232 lb 6.4 oz) 02/21/22 0409 106.1 kg (233 lb 14.5 oz) 06/07/22 1958 106.9 kg (235 lb 10.8 oz) Intake/Output Summary (Last 24 hours) at 02/25/2022 0954 Last data filed at 02/25/2022 0800 Gross per 24 hour Intake 1080 ml Output 1475 ml Net -395 ml Physical Exam Vitals reviewed. Constitutional: General: He is not in acute distress. Appearance: He is well-developed. He is not diaphoretic. HENT: Head: Normocephalic and atraumatic. Eyes: General: Right eye: No discharge. Left eye: No discharge. Cardiovascular: Rate and Rhythm: Normal rate and regular rhythm. Pulses: Intact distal pulses. Heart sounds: Normal heart sounds. No murmur heard. No friction rub. No gallop. Pulmonary: Effort: Pulmonary effort is normal. No respiratory distress. Breath sounds: Normal breath sounds. No wheezing or rales. Abdominal: General: Bowel sounds are normal. There is no distension. Palpations: Abdomen is soft. Tenderness: There is no abdominal tenderness. There is no rebound. Musculoskeletal: General: Normal range of motion. Cervical back: Normal range of motion and neck supple. Skin: General: Skin is warm and dry. Neurological: Mental Status: He is alert and oriented to person, place, and time. Psychiatric: Behavior: Behavior normal. Lab Comments: Recent Labs 02/24/2231402/23/2235102/22/2233 WBC 6.4 4.9 5.8 HGB 16.0 16.5 16.1 HCT 47.2 48.2 47.2 PLATELET 167 156 169 No results for input(s): INR in the last 168 hours. Recent Labs 02/24/2231402/23/222 02/22/22 0633 NA 136 136 136 K 3.8 3.9 4.4 CL 101 102 102 CO2 24 23 23 BUN 14 11 13 CREATININE 0.79* 0.72* 0.74* No results for input(s): AST, ALT, ALKPHOS, BILITOT, BILIDIR in the last 168 hours. Recent Labs 02/24/2231402/23/22 0352 02/22/22 0633 CALCIUM 9.2 9.4 9.2 Recent Labs 02/21/22 0904 02/21/22 0254 02/20/222031 TROPONINT 0.01* 0.02* <0.01 Pertinent Radiographic/Diagnostic Results: TTE 02/21/22 Interpretation Summary 1. The left ventricle is severely dilated with mildly decreased wall thickness. Systolic function is severely reduced with an EF of 17 % by Renae's biplane method. There are wall motion abnormalities as demonstrated in the attached PDF. 2. The right ventricle is normal in size and global systolic function. The estimated pulmonary artery systolic pressure could not be assessed 3. Right atrium is mildly dilated. 4. There is no hemodynamically significant valvular disease. 5. See remainder of report for additional findings. There is no prior study for comparison. Cardiac cath: 02/21/22 Conclusions: * Two vessel coronary artery disease (LAD and LCX) * Consider viability testing and cardiac surgery consult. Anatomy is favorable for PAVING [employer]OR PCI. Cardiac MRI: 02/22/22 IMPRESSION Severe dilatation of the left ventricle. Severely reduced left ventricular ejection fraction of 22%. ?? Subendocardial delayed contrast enhancement in the basilar to mid anterior, anterolateral, and anteroseptal wall. Enhancement of less than 50% of the myocardial wall thickness is consistent with persistent viability. ?? Transmural enhancement at the distal anterior wall and anterior aspect of the apex. Unlikely to be viable. ?? UNEXPECTED FINDING of a 14 mm laminar thrombus in the anterior distal aspect of the left ventricle. ?? Normal size of the right ventricle and normal right ventricular function. EC02/25/22 HR 61 sinus rhythm with no acute changes ?? Assessment: Gillian Branch is a 71 y.o. male with PMH of DM, HTN, GERD and anxiety [facility]. He woke up around 3 AM on 02/19/22 with chest tightness and SOB. Ruled in for NSTEMI. EKG showed sinus rhythm with poor R wave progression and intraventricular conduction delay. TTE showed EF of 17% and apical WMA's. Trop at OSH +; here <0.01 -> 0.02. Presentation consistent with NSTEMI and new HFrEF concerning for ischemic cardiomyopathy. Cardiac catheterization shows PAVING CONTRACTOR of proximal LAD with collaterals from the RCA. Cardiac MRI shows some viability in the basilar to mid anterior, anterolateral and anteroseptal bowers. Unlikely to be viable distal anterior wall and anterior aspect of the apex. After discussion, plan for PCI of the PAVING CONTRACTOR of the LADplus or minus IABP support on Saturday. After further review of the cardiac MRI we will plan to stop IV heparin. Plan: # NSTEMI TTE w/ LVEF 17% S/p ASA 325 mg and Plavix 300 mg loads Continue daily aspirin, restarted plavix dosing Continue metoprolol 25 mg q6 hrs Continue atorvastatin 40 mg nighty PAVING [employer] of LAD found, planned PCI on Saturday # New HFrEF TTE w/ EF 17% Continue PO lasix 20 mg daily Continue metoprolol tartrate with plan to transition to succinate at discharge Continue Losartan 50 mg daily and spironolactone 12.5 mg daily Consider additional GDMT # Excessive alcohol use Drinks ~4-6 beers daily Monitor for alcohol withdrawal (no hx of w/d) Encourage alcohol cessation/moderation Thiamine # DM II Hold home regimen A1c 7.3% SSI Monitor FSG Consider Jardiance for HFrEF and DM # HTN BP: (112-127)/(61-77) 24 hour BP range Continue Losartan and increased metoprolol # Anxiety Continue Lexapro PRN ativan Code status: Full code DVT prophylaxis- Heparin SC q 12 hours Discussed with MD Oliver Mistry APRN Pager [phone] 02/25/2022 Ben Schaeffer MD - 02/24/2022 11:02 AM EDT Images from the original note were not included. Inpatient Cardiology Progress Note Patient Name: Gillian Branch Service: DOUBLE NEEDLE STITCHER / PA Responsible Attending: Ben Schaeffer MD Reason for continued hospitalization: NSTEMI New HFrEF - LVEF ~17 % P[employer] of LAD seen on cardiac cath, planned PCI for Saturday after review of the cardiac MRI Active Problems: Active Hospital Problems Diagnosis ??? NSTEMI (non-ST elevated myocardial infarction) ??? Acute systolic congestive heart failure Resolved Hospital Problems No resolved problems to display. Interval History: Patient did well overnight with no chest pain or shortness of breath. Aware of theplan for PCI of his PAVING [employer]OR LAD on Saturday. Dr. Schaeffer's examination of the MRI with Dr. Vears with little clot seen in the LV. Review of Systems: Review of Systems Constitutional: Why can't I eat today? Respiratory: Negative for shortness of breath. Cardiovascular: Negative for chest pain. Musculoskeletal: Right radial site feels well. All other systems reviewed and are negative. Telemetry: HR: 60-80 sinus rhythm with rare PVC Meds: Scheduled Meds: ??? insulin glargine (Lantus;Semglee) (100 unit/mL) subcutaneous injection 10 Units Subcutaneous Nightly ??? insulin lispro 0-8 Units Subcutaneous TID WC ? ? insulin lispro 1-4 Units Subcutaneous 4 Times Daily AC & HS ??? clopidogreL 75 mg Oral Daily ??? metoprolol tartrate 25 mg Oral Q6H ERIC ??? spironolactone 12.5 mg Oral Daily ??? furosemide 20 mg Oral Daily ??? atorvastatin 40 mg Oral QPM ??? escitalopram 10 mg Oral Daily ??? gabapentin 300 mg Oral TID ??? losartan 50 mg Oral Daily ??? sodium chloride 0.9 % (flush) 5 mL Intravenous BID ??? aspirin EC 81 mg Oral Daily ??? pantoprazole EC 40 mg Oral Daily ??? thiamine 100 mg Oral Daily ??? folic acid 1,000 mcg Oral Daily ??? multivitamin with minerals 1 tablet Oral Daily Continuous Infusions: PRN Meds:sodium chloride 0.9 % (flush), lidocaine, nitroGLYcerin, glucose 40% oral geL OR dextrose 10% OR glucagon, acetaminophen, LORazepam Physical Exam: Vital Signs: Last value Range last 24 hrs Temperature Temp: 36.5 ??C (97.7 ??F) Temp: [36.4 ??C (97.5 ??F)-36.8 ??C (98.2 ??F)] Heart Rate Heart Rate: 63 Heart Rate: [63-73] Blood Pressure BP: 117/69 BP: (113-130)/(64-83) Respiratory Rate Resp: 16 Resp: [16-18] SpO2 SpO2: 96 % SpO2: [94 %-96 %] Physical Exam Vitals reviewed. Constitutional: General: He is not in acute distress. Appearance: He is well-developed. He is not diaphoretic. HENT: Head: Normocephalic and atraumatic. Eyes: General: Right eye: No discharge. Left eye: No discharge. Cardiovascular: Rate and Rhythm: Normal rate and regular rhythm. Pulses: Intact distal pulses. Heart sounds: Normal heart sounds. No murmur heard. No friction rub. No gallop. Pulmonary: Effort: Pulmonary effort is normal. No respiratory distress. Breath sounds: Normal breath sounds. No wheezing or rales. Abdominal: General: Bowel sounds are normal. There is no distension. Palpations: Abdomen is soft. Tenderness: There is no abdominal tenderness. There is no rebound. Musculoskeletal: General: Normal range of motion. Cervical back: Normal range of motion and neck supple. Skin: General: Skin is warm and dry. Neurological: Mental Status: He is alert and oriented to person, place, and time. Psychiatric: Behavior: Behavior normal. Lab Comments: Recent Labs 02/24/2231402/23/222 02/22/22 0633 WBC 6.4 4.9 5.8 HGB 16.0 16.5 16.1 HCT 47.2 48.2 47.2 PLATELET 167 156 169 No results for input(s): INR in the last 168 hours. Recent Labs 02/24/2231402/23/22 0352 02/22/22 0633 NA 136 136 136 K 3.8 3.9 4.4 CL 101 102 102 CO2 24 23 23 BUN 14 11 13 CREATININE 0.79* 0.72* 0.74* No results for input(s): AST, ALT, ALKPHOS, BILITOT, BILIDIR in the last 168 hours. Recent Labs 02/24/2231402/23/22 0352 02/22/22 0633 CALCIUM 9.2 9.4 9.2 Recent Labs 02/21/22 0904 02/21/22 0254 02/20/22 2032 TROPONINT 0.01* 0.02* <0.01 Pertinent Radiographic/Diagnostic Results: TTE 02/21/22 Interpretation Summary 1. The left ventricle is severely dilated with mildly decreased wall thickness. Systolic function is severely reduced with an EF of 17 % by Renae's biplane method. There are wall motion abnormalities as demonstrated in the attached PDF. 2. The right ventricle is normal in size and global systolic function. The estimated pulmonary artery systolic pressure could not be assessed 3. Right atrium is mildly dilated. 4. There is no hemodynamically significant valvular disease. 5. See remainder of report for additional findings. There is no prior study for comparison. Cardiac cath: 02/21/22 Conclusions: * Two vessel coronary artery disease (LAD and LCX) * Consider viability testing and cardiac surgery consult. Anatomy is favorable for PAVING CONTRACTOR PCI. Cardiac MRI: 02/22/22 IMPRESSION Severe dilatation of the left ventricle. Severely reduced left ventricular ejection fraction of 22%. ?? Subendocardial delayed contrast enhancement in the basilar to mid anterior, anterolateral, and anteroseptal wall. Enhancement of less than 50% of the myocardial wall thickness is consistent with persistent viability. ?? Transmural enhancement at the distal anterior wall and anterior aspect of the apex. Unlikely to be viable. ?? UNEXPECTED FINDING of a 14 mm laminar thrombus in the anterior distal aspect of the left ventricle. ?? Normal size of the right ventricle and normal right ventricular function. ?? Assessment: Gillian Branch is a 71 y.o. male with PMH of DM, HTN, GERD and anxiety [facility]. He woke up around 3 AM on 02/19/22 with chest tightness and SOB. Ruled in for NSTEMI. EKG showed sinus rhythm with poor R wave progression and intraventricular conduction delay. TTE showed EF of 17% and apical WMA's. Trop at OSH +; here <0.01 -> 0.02. Presentation consistent with NSTEMI and new HFrEF concerning for ischemic cardiomyopathy. Cardiac catheterization shows PAVING CONTRACTOR of proximal LAD with collaterals from the RCA. Cardiac MRI shows some viability in the basilar to mid anterior, anterolateral and anteroseptal bowers. Unlikely to be viable distal anterior wall and anterior aspect of the apex. After discussion, plan for PCI of the PAVING CONTRACTOR of the LADplus or minus IABP support on Saturday. After further review of the cardiac MRI we will plan to stop IV heparin. Plan: # NSTEMI TTE w/ LVEF 17% S/p ASA 325 mg and Plavix 300 mg loads Continue daily aspirin, restarted plavix dosing Continue metoprolol 25 mg q6 hrs Continue atorvastatin 40 mg nighty PAVING CONTRACTOR of LAD found, planned PCI on Saturday # New HFrEF TTE w/ EF 17% Start PO lasix 20 mg daily Continue metoprolol tartrate with plan to transition to succinate at discharge Continue Losartan 50 mg daily and spironolactone 12.5 mg daily Consider additional GDMT # Excessive alcohol use Drinks ~4-6 beers daily Monitor for alcohol withdrawal (no hx of w/d) Encourage alcohol cessation/moderation Thiamine # DM II Hold home regimen A1c 7.3% SSI Monitor FSG Consider Jardiance for HFrEF and DM # HTN BP: (113-130)/(64-83) 24 hour BP range Continue Losartan and increased metoprolol # Anxiety Continue Lexapro PRN ativan Code status: Full code DVT prophylaxis- Heparin SC q 12 hours Discussed with MD Oliver Mistry APRN Pager [phone] 02/24/2022 Cardiovascular Attending Note I shared this visit with Oliver Murry APRN. I performed and supplemented the history, physical examination, and interval ROS with my own assessment and plan of care. My role was to review and update the management of the active cardiovascular issues and to engage the patient in the medical decision-making. I constructed the plan of care, as detailed in the note and addressed the patient's questions. Ben Schaeffer M.D. Ben Schaeffer MD - 02/23/2022 1:18 PM EDT Images from the original note were not included. Inpatient Cardiology Progress Note Patient Name: Gillian Branch Service: DOUBLE NEEDLE STITCHER / PA Responsible Attending: Ben Schaeffer MD Reason for continued hospitalization: NSTEMI New HFrEF - LVEF ~17 % PAVING CONTRACTOR of LAD seen on cardiac cath, planned PCI for Saturday after review of the cardiac MRI Active Problems: Active Hospital Problems Diagnosis ??? NSTEMI (non-ST elevated myocardial infarction) ??? Acute systolic congestive heart failure Resolved Hospital Problems No resolved problems to display. Interval History: Patient had cardiac MRI yesterday results of which need to be reviewed with interventional cardiology and CT surgery. He has had no further episodes of chest discomfort or shortness of breath which brought him to the hospital. He continues on IV heparin awaiting decision for next step. Review of Systems: Review of Systems Respiratory: Negative for shortness of breath. Cardiovascular: Negative for chest pain. Musculoskeletal: Right radial site feels well. All other systems reviewed and are negative. Telemetry: HR: 60-75 sinus rhythm with rare PVC Meds: Scheduled Meds: ??? insulin glargine (Lantus;Semglee) (100 unit/mL) subcutaneous injection 10 Units Subcutaneous Nightly ??? insulin lispro 0-8 Units Subcutaneous TID WC ? ? insulin lispro 1-4 Units Subcutaneous 4 Times Daily AC & HS ??? clopidogreL 75 mg Oral Daily ??? metoprolol tartrate 25 mg Oral Q6H ERIC ??? spironolactone 12.5 mg Oral Daily ??? furosemide 20 mg Oral Daily ??? atorvastatin 40 mg Oral QPM ??? escitalopram 10 mg Oral Daily ??? gabapentin 300 mg Oral TID ??? losartan 50 mg Oral Daily ??? sodium chloride 0.9 % (flush) 5 mL Intravenous BID ??? aspirin EC 81 mg Oral Daily ??? pantoprazole EC 40 mg Oral Daily ??? thiamine 100 mg Oral Daily ??? folic acid 1,000 mcg Oral Daily ??? multivitamin with minerals 1 tablet Oral Daily Continuous Infusions: ??? heparin (porcine) infusion 1,800 Units/hr (02/23/22 1253) PRN Meds:sodium chloride 0.9 % (flush), lidocaine, nitroGLYcerin, glucose 40% oral geL OR dextrose 10% OR glucagon, acetaminophen, heparin (porcine) infusion AND heparin (porcine), LORazepam Physical Exam: Vital Signs: Last value Range last 24 hrs Temperature Temp: 36.8 ??C (98.2 ??F) Temp: [36.3 ??C (97.3 ??F)-36.8 ??C (98.2 ??F)] Heart Rate Heart Rate: 73 Heart Rate: [59-73] Blood Pressure BP: 113/83 BP: (107-124)/(58-85) Respiratory Rate Resp: 18 Resp: [16-18] SpO2 SpO2: 94 % SpO2: [94 %-100 %] Physical Exam Vitals reviewed. Constitutional: General: He is not in acute distress. Appearance: He is well-developed. He is not diaphoretic. HENT: Head: Normocephalic and atraumatic. Eyes: General: Right eye: No discharge. Left eye: No discharge. Cardiovascular: Rate and Rhythm: Normal rate and regular rhythm. Pulses: Intact distal pulses. Heart sounds: Normal heart sounds. No murmur heard. No friction rub. No gallop. Pulmonary: Effort: Pulmonary effort is normal. No respiratory distress. Breath sounds: Normal breath sounds. No wheezing or rales. Abdominal: General: Bowel sounds are normal. There is no distension. Palpations: Abdomen is soft. Tenderness: There is no abdominal tenderness. There is no rebound. Musculoskeletal: General: Normal range of motion. Cervical back: Normal range of motion and neck supple. Comments: Right wrist is clean, dry and intact. No hematoma or ooze. Radial pulse is present. Intact color, sensation and motion. Capillary refill is under 2 seconds. Skin: General: Skin is warm and dry. Neurological: Mental Status: He is alert and oriented to person, place, and time. Psychiatric: Behavior: Behavior normal. Lab Comments: Recent Labs 02/23/22 0352 02/22/22 0633 02/21/22 0254 WBC 4.9 5.8 6.4 HGB 16.5 16.1 16.1 HCT 48.2 47.2 47.3 PLATELET 156 169 173 No results for input(s): INR in the last 168 hours. Recent Labs 02/23/22 0352 02/22/22 0633 02/21/22 0254 NA 136 136 137 K 3.9 4.4 4.0 CL 102 102 102 CO2 23 23 24 BUN 11 13 20 CREATININE 0.72* 0.74* 0.80 No results for input(s): AST, ALT, ALKPHOS, BILITOT, BILIDIR in the last 168 hours. Recent Labs 02/23/22 0352 02/22/22 0633 02/21/22 0254 CALCIUM 9.4 9.2 9.1 Recent Labs 02/21/22 0904 02/21/22 0254 02/20/22 2032 TROPONINT 0.01* 0.02* <0.01 Pertinent Radiographic/Diagnostic Results: TTE 02/21/22 Interpretation Summary 1. The left ventricle is severely dilated with mildly decreased wall thickness. Systolic function is severely reduced with an EF of 17 % by Renae's biplane method. There are wall motion abnormalities as demonstrated in the attached PDF. 2. The right ventricle is normal in size and global systolic function. The estimated pulmonary artery systolic pressure could not be assessed 3. Right atrium is mildly dilated. 4. There is no hemodynamically significant valvular disease. 5. See remainder of report for additional findings. There is no prior study for comparison. Cardiac cath: 02/21/22 Conclusions: * Two vessel coronary artery disease (LAD and LCX) * Consider viability testing and cardiac surgery consult. Anatomy is favorable for PAVING CONTRACTOR PCI. Cardiac MRI: 02/22/22 IMPRESSION Severe dilatation of the left ventricle. Severely reduced left ventricular ejection fraction of 22%. ?? Subendocardial delayed contrast enhancement in the basilar to mid anterior, anterolateral, and anteroseptal wall. Enhancement of less than 50% of the myocardial wall thickness is consistent with persistent viability. ?? Transmural enhancement at the distal anterior wall and anterior aspect of the apex. Unlikely to be viable. ?? UNEXPECTED FINDING of a 14 mm laminar thrombus in the anterior distal aspect of the left ventricle. ?? Normal size of the right ventricle and normal right ventricular function. ?? Assessment: Gillian Branch is a 71 y.o. male with PMH of DM, HTN, GERD and anxiety [facility]. He woke up around 3 AM on 02/19/22 with chest tightness and SOB. Ruled in for NSTEMI. EKG showed sinus rhythm with poor R wave progression and intraventricular conduction delay. TTE showed EF of 17% and apical WMA's. Trop at OSH +; here <0.01 -> 0.02. Presentation consistent with NSTEMI and new HFrEF concerning for ischemic cardiomyopathy. Cardiac catheterization shows PAVING CONTRACTOR of proximal LAD with collaterals from the RCA. Cardiac MRI shows some viability in the basilar to mid anterior, anterolateral and anteroseptal bowers. Unlikely to be viable distal anterior wall and anterior aspect of the apex. After discussion, plan for PCI of the PAVING CONTRACTOR of the LADplus or minus IABP support on Saturday. Will continue IV heparin. Restart Plavix dosing. Plan: # NSTEMI TTE w/ LVEF 17% S/p ASA 325 mg and Plavix 300 mg loads Continue daily aspirin, restarted plavix dosing Continue IV heparin Continue metoprolol 25 mg q6 hrs Continue atorvastatin 40 mg nighty PAVING CONTRACTOR of LAD found, planned PCI on Saturday # New HFrEF TTE w/ EF 17% Start PO lasix 20 mg daily Continue metoprolol tartrate with plan to transition to succinate at discharge Continue Losartan 50 mg daily Add spironolactone 12.5 mg daily Consider additional GDMT # Excessive alcohol use Drinks ~4-6 beers daily Monitor for alcohol withdrawal (no hx of w/d) Encourage alcohol cessation/moderation Thiamine # DM II Hold home regimen A1c 7.3% SSI Monitor FSG Consider Jardiance for HFrEF and DM # HTN BP: (107-124)/(58-85) 24 hour BP range Continue Losartan and increased metoprolol # Anxiety Continue Lexapro PRN ativan Code status: Full code DVT prophylaxis- Heparin gtt Discussed with MD Oliver Mistry APRN Pager [phone] 02/23/2022 Cardiovascular Attending Note I shared this visit with Oliver Murry APRN. I performed and supplemented the history, physical examination, and interval ROS with my own assessment and plan of care. My role was to review and update the management of the active cardiovascular issues and to engage the patient in the medical decision-making. I constructed the plan of care, as detailed in the note and addressed the patient's questions. Ben Schaeffer M.D. Cha Leal RN - 02/23/2022 2:41 AM EDT Pt AAOx4, NSR on tele- see scanned docs. VSS on RA. Denies any CP or SOB. Heparin gtt maintained perprotocol. NPO at midnight. Call mcallister within reach. Vannessa Collins RN - 02/22/2022 6:12 PM EDT A/Ox4. See tele report. Denies chest pain or SOB. MRI today. Heparin gtt. NPO after midnight for possible surgery eval tomorrow. Spontaneous voiding. Elmer Fiore MD - 02/22/2022 7:31 AM EDT Images from the original note were not included. Inpatient Cardiology Progress Note Patient Name: Gillian Branch Service: DOUBLE NEEDLE STITCHER / PA Responsible Attending: Elmer Fiore MD Reason for continued hospitalization: NSTEMI New HFrEF - LVEF ~17 % PAVING CONTRACTOR of LAD seen on cardiac cath Active Problems: Active Hospital Problems Diagnosis ??? NSTEMI (non-ST elevated myocardial infarction) ??? Acute systolic congestive heart failure Resolved Hospital Problems No resolved problems to display. Interval History: Patient with cardiac cath yesterday that found PAVING CONTRACTOR of the LAD. Options for revascularization reviewed. Currently denies chest pain, SOB. Cath site feels well. Review of Systems: Review of Systems Respiratory: Negative for shortness of breath. Cardiovascular: Negative for chest pain. Musculoskeletal: Right radial site feels well. All other systems reviewed and are negative. Telemetry: HR: 70-90 sinus rhythm with rare PAC, PVCs Meds: Scheduled Meds: ??? furosemide 20 mg Oral Daily ??? atorvastatin 40 mg Oral QPM ??? escitalopram 10 mg Oral Daily ??? gabapentin 300 mg Oral TID ??? losartan 50 mg Oral Daily ??? metoprolol tartrate 12.5 mg Oral Q6H EIRC ??? sodium chloride 0.9 % (flush) 5 mL Intravenous BID ??? aspirin EC 81 mg Oral Daily ??? clopidogreL 75 mg Oral Daily ??? pantoprazole EC 40 mg Oral Daily ? ? insulin lispro 1-4 Units Subcutaneous 4 Times Daily AC & HS ??? thiamine 100 mg Oral Daily ??? folic acid 1,000 mcg Oral Daily ??? multivitamin with minerals 1 tablet Oral Daily Continuous Infusions: ??? heparin (porcine) infusion 1,800 Units/hr (02/22/22 0044) PRN Meds:sodium chloride 0.9 % (flush), lidocaine, nitroGLYcerin, glucose 40% oral geL OR dextrose 10% OR glucagon, acetaminophen, heparin (porcine) infusion AND heparin (porcine), LORazepam Physical Exam: Vital Signs: Last value Range last 24 hrs Temperature Temp: 36.7 ??C (98 ??F) Temp: [36.5 ??C (97.7 ??F)-36.8 ??C (98.2 ??F)] Heart Rate Heart Rate: 70 Heart Rate: [70-79] Blood Pressure BP: 122/78 BP: (113-133)/(69-81) Respiratory Rate Resp: 16 Resp: [12-23] SpO2 SpO2: 96 % SpO2: [93 %-97 %] Physical Exam Vitals reviewed. Constitutional: General: He is not in acute distress. Appearance: He is well-developed. He is not diaphoretic. HENT: Head: Normocephalic and atraumatic. Eyes: General: Right eye: No discharge. Left eye: No discharge. Cardiovascular: Rate and Rhythm: Normal rate and regular rhythm. Pulses: Intact distal pulses. Heart sounds: Normal heart sounds. No murmur heard. No friction rub. No gallop. Pulmonary: Effort: Pulmonary effort is normal. No respiratory distress. Breath sounds: Normal breath sounds. No wheezing or rales. Abdominal: General: Bowel sounds are normal. There is no distension. Palpations: Abdomen is soft. Tenderness: There is no abdominal tenderness. There is no rebound. Musculoskeletal: General: Normal range of motion. Cervical back: Normal range of motion and neck supple. Skin: General: Skin is warm and dry. Neurological: Mental Status: He is alert and oriented to person, place, and time. Psychiatric: Behavior: Behavior normal. Lab Comments: Recent Labs 02/22/2263202/21/2225302/20/222031 WBC 5.8 6.4 6.0 HGB 16.1 16.1 16.4 HCT 47.2 47.3 47.6 PLATELET 169 173 157 No results for input(s): INR in the last 168 hours. Recent Labs 02/22/2263202/21/22 0254 02/20/222031 NA 136 137 137 K 4.4 4.0 4.0 CL 102 102 101 CO2 23 24 24 BUN 13 20 20 CREATININE 0.74* 0.80 0.85 No results for input(s): AST, ALT, ALKPHOS, BILITOT, BILIDIR in the last 168 hours. Recent Labs 02/22/2263202/21/22 02502/20/222031 CALCIUM 9.2 9.1 9.3 Recent Labs 02/21/22 0904 02/21/22 0254 02/20/222031 TROPONINT 0.01* 0.02* <0.01 Pertinent Radiographic/Diagnostic Results: TTE 02/21/22 Interpretation Summary 1. The left ventricle is severely dilated with mildly decreased wall thickness. Systolic function is severely reduced with an EF of 17 % by Renae's biplane method. There are wall motion abnormalities as demonstrated in the attached PDF. 2. The right ventricle is normal in size and global systolic function. The estimated pulmonary artery systolic pressure could not be assessed 3. Right atrium is mildly dilated. 4. There is no hemodynamically significant valvular disease. 5. See remainder of report for additional findings. There is no prior study for comparison. Cardiac cath: 02/21/22 Conclusions: * Two vessel coronary artery disease (LAD and LCX) * Consider viability testing and cardiac surgery consult. Anatomy is favorable for PAVING CONTRACTOR PCI. Assessment: Gillian Branch is a 71 y.o. male with PMH of DM, HTN, GERD and anxiety [facility]. He woke up around 3 AM on 02/19/22 with chest tightness and SOB. Ruled in for NSTEMI. EKG showed sinus rhythm with poor R wave progression and intraventricular conduction delay. TTE showed EF of 17% and apical WMA's. Trop at OSH +; here <0.01 -> 0.02. Presentation consistent with NSTEMI and new HFrEF concerning for ischemic cardiomyopathy. Cardiac catheterization shows PAVING CONTRACTOR of proximal LAD with collaterals from the RCA. We will proceed with cardiac MRI for viability before decision about revascularization is made. Plan: # NSTEMI TTE w/ LVEF 17% S/p ASA 325 mg and Plavix 300 mg loads Continue daily aspirin Holding plavix starting today in case of CT surgery option Continue IV heparin Continue metoprolol 25 mg q6 hrs Continue atorvastatin 40 mg nighty PAVING CONTRACTOR of LAD found, will get cardiac MRI tomorrow for viability, then discuss what viability options are available # New HFrEF TTE w/ EF 17% Start PO lasix 20 mg daily Continue metoprolol tartrate with plan to transition to succinate at discharge Continue Losartan 50 mg daily Add spironolactone 12.5 mg daily Consider additional GDMT # Excessive alcohol use Drinks ~4-6 beers daily Monitor for alcohol withdrawal (no hx of w/d) Encourage alcohol cessation/moderation Thiamine # DM II Hold home regimen A1c 7.3% SSI Monitor FSG Consider Jardiance for HFrEF and DM # HTN BP: (113-133)/(69-81) 24 hour BP range Continue Losartan and will increase metoprolol today # Anxiety Continue Lexapro PRN ativan Code status: Full code DVT prophylaxis- Heparin gtt Discussed with Elmer Fiore MD Oilver Murry, IVORY CARVER Pager [phone] 02/22/2022 Cardiology Staff I shared this visit with Ms. Murry. My role was to review the history, exam, laboratory, and imaging and to formulate the assessment and plan. I performed the medical decision making. In brief, patient with advanced cardiomyopathy and stable ischemic heart disease, now status post adequate diruesis for HF. Cath with LAD PAVING CONTRACTOR. TTE with LVEF 20%, dense apical akinesis. Would be challenging PCI and CABG also an option. Should get viability assessment prior. For cardiac MR tomorrow. Advance GDMT HFrEF theapies and transition to PO diuretic. Elmer Fiore MD, MARLENY, FACC, FACP, FASE Cardiovascular Medicine Yann Noel Y - 02/21/2022 10:07 AM EDT Inpatient Cardiology Progress Note Patient Name: Gillian Branch Service: DOUBLE NEEDLE STITCHER / PA Responsible Attending: Elmer Fiore MD Reason for continued hospitalization: Evaluation and management of NSTEMI New HFrEF Active Problems: Active Hospital Problems Diagnosis ??? NSTEMI (non-ST elevated myocardial infarction) ??? Acute systolic congestive heart failure Resolved Hospital Problems No resolved problems to display. Interval History: No acute events overnight, no episodes of chest pain or shortness of breath since admission. Troponin <0.01 02/20 at 20:32 to 0.02 02/21 at 02:54. Describes the event that led to hospitalization as what he believed to be an anxiety attack where he became short of breath and felt claustrophobic. Review of Systems: Review of Systems Constitutional: Negative. HENT: Negative. Eyes: Negative. Respiratory: Positive for shortness of breath (During his panic attack Saturday morning). Cardiovascular: Negative for chest pain and leg swelling. Gastrointestinal: Negative. Telemetry: HR: 71-78 sinus rhythm Meds: Scheduled Meds: ??? furosemide 20 mg Oral Daily ??? atorvastatin 40 mg Oral QPM ??? escitalopram 10 mg Oral Daily ??? gabapentin 300 mg Oral TID ??? losartan 50 mg Oral Daily ??? metoprolol tartrate 12.5 mg Oral Q6H ERIC ??? sodium chloride 0.9 % (flush) 5 mL Intravenous BID ??? aspirin EC 81 mg Oral Daily ??? clopidogreL 75 mg Oral Daily ??? pantoprazole EC 40 mg Oral Daily ? ? insulin lispro 1-4 Units Subcutaneous 4 Times Daily AC & HS ??? thiamine 100 mg Oral Daily ??? folic acid 1,000 mcg Oral Daily ??? multivitamin with minerals 1 tablet Oral Daily Continuous Infusions: ??? heparin (porcine) infusion 1,800 Units/hr (02/21/22 0959) PRN Meds:sodium chloride 0.9 % (flush), lidocaine, nitroGLYcerin, glucose 40% oral geL OR dextrose 10% OR glucagon, acetaminophen, heparin (porcine) infusion AND heparin (porcine), LORazepam Physical Exam: Vital Signs: Last value Range last 24 hrs Temperature Temp: 36.6 ??C (97.9 ??F) Temp: [36.4 ??C (97.5 ??F)-36.7 ??C (98.1 ??F)] Heart Rate Heart Rate: 71 Heart Rate: [71-78] Blood Pressure BP: 113/79 BP: (113-129)/(70-85) Respiratory Rate Resp: 20 Resp: [14-20] SpO2 SpO2: 94 % SpO2: [94 %-96 %] Physical Exam Constitutional: General: He is not in acute distress. Appearance: Normal appearance. HENT: Head: Normocephalic and atraumatic. Eyes: Extraocular Movements: Extraocular movements intact. Conjunctiva/sclera: Conjunctivae normal. Pupils: Pupils are equal, round, and reactive to light. Cardiovascular: Rate and Rhythm: Normal rate and regular rhythm. Pulmonary: Effort: Pulmonary effort is normal. Breath sounds: Normal breath sounds. Musculoskeletal: General: No swelling. Right lower leg: No edema. Left lower leg: No edema. Skin: General: Skin is warm and dry. Neurological: Mental Status: He is alert and oriented to person, place, and time. Psychiatric: Mood and Affect: Mood normal. Behavior: Behavior normal. Thought Content: Thought content normal. Lab Comments: Recent Labs 02/21/22 0254 02/20/222031 WBC 6.4 6.0 HGB 16.1 16.4 HCT 47.3 47.6 PLATELET 173 157 No results for input(s): INR in the last 168 hours. Recent Labs 02/21/22 0254 02/20/222031 NA 137 137 K 4.0 4.0 CL 102 101 CO2 24 24 BUN 20 20 CREATININE 0.80 0.85 No results for input(s): AST, ALT, ALKPHOS, BILITOT, BILIDIR in the last 168 hours. Recent Labs 02/21/22 0254 02/20/222031 CALCIUM 9.1 9.3 Recent Labs 02/21/22 0904 02/21/22 0254 02/20/222031 TROPONINT 0.01* 0.02* <0.01 Pertinent Radiographic/Diagnostic Results: TTE 02/21/22 1. The left ventricle is severely dilated with mildly decreased wall thickness. Systolic function is severely reduced with an EF of 17 % by Renae's biplane method. There are wall motion abnormalities as demonstrated in the attached PDF. 2. The right ventricle is normal in size and global systolic function. The estimated pulmonary artery systolic pressure could not be assessed 3. Right atrium is mildly dilated. 4. There is no hemodynamically significant valvular disease. 5. See remainder of report for additional findings. There is no prior study for comparison Assessment: Gillian Branch is a 71 y.o. male with PMH of DM, HTN, GERD, anxiety who presented to [facility] with symptoms he thought was a panic attack. Pt was found to have elevated trops, <0.01 02/20 20:32 to0.02 02/21 02:54.. EKG showed poor R-wave progression, interventricular conduction delay. Bedside echoshowed EF 35% with apical WMA. TTE today showed severely dilated left ventricle with mildly decreased wall thickness, reduced systolic function with EF 17%. Presentation is concerning for new onset HFrEF, ? Ischemic cardiomyopathy, and NSTEMI type I vs type II in the setting of HFrEF. Plan: # NSTEMI # HFrEF Monitor on telemetry Serial EKGs Trend troponins Continue ASA 81mg PO daily Continue Plavix 85mg PO daily Continue Metoprolol, Lipitor Transition from IV lasix to 20mg PO daily Continue Heparin gtt Cath today # Excessive alcohol use Monitor for alcohol withdrawal symptoms, drinks 4 beers a night at home Continue Thiamine and Folic acid #DM2 Hold PO hypoglycemics SSI Monitor FSG # Anxiety Continue home Lexapro PRN ativan # Other Code status: DNR/DNI but agreed to full code for cath DVT PPx: Heparin gtt NPO for cath today Noel Longo Yann 02/21/2022 Elmer Fiore MD - 02/21/2022 7:51 AM EDT Images from the original note were not included. Inpatient Cardiology Progress Note Patient Name: Gillian Branch Service: DOUBLE NEEDLE STITCHER / PA Responsible Attending: Elmer Fiore MD Reason for continued hospitalization: NSTEMI New HFrEF - LVEF ~17 % Awaiting cardiac catheterization Active Problems: Active Hospital Problems Diagnosis ??? NSTEMI (non-ST elevated myocardial infarction) ??? Acute systolic congestive heart failure Resolved Hospital Problems No resolved problems to display. Interval History: Patient admitted overnight in transfer for evaluation and management of NSTEMI andnew diagnosis of HFrEF. He reports he woke up 3 AM on Saturday and felt like he was having an anxiety attack- SOB and chest tightness. Echo shows EF ~17% with apical WMA. Trop <0.01 -> 0.02. Currently denies chest pain, SOB. In agreement for cardiac catheterization today. Review of Systems: Review of Systems Constitutional: Negative for chills and fever. Respiratory: Negative for shortness of breath. Cardiovascular: Negative for chest pain and leg swelling. Gastrointestinal: Negative for abdominal pain. Genitourinary: Negative for dysuria. Neurological: Negative for light-headedness. Telemetry: HR: 60-90's, SR Meds: Scheduled Meds: ??? furosemide 20 mg Intravenous BID ??? atorvastatin 40 mg Oral QPM ??? escitalopram 10 mg Oral Daily ??? gabapentin 300 mg Oral TID ??? losartan 50 mg Oral Daily ??? metoprolol tartrate 12.5 mg Oral Q6H ERIC ??? sodium chloride 0.9 % (flush) 5 mL Intravenous BID ??? aspirin EC 81 mg Oral Daily ??? clopidogreL 75 mg Oral Daily ??? pantoprazole EC 40 mg Oral Daily ? ? insulin lispro 1-4 Units Subcutaneous 4 Times Daily AC & HS ??? thiamine 100 mg Oral Daily ??? folic acid 1,000 mcg Oral Daily ??? multivitamin with minerals 1 tablet Oral Daily Continuous Infusions: ??? heparin (porcine) infusion PRN Meds:sodium chloride 0.9 % (flush), lidocaine, nitroGLYcerin, glucose 40% oral geL OR dextrose 10% OR glucagon, acetaminophen, heparin (porcine) infusion AND heparin (porcine), LORazepam Physical Exam: Vital Signs: Last value Range last 24 hrs Temperature Temp: 36.4 ??C (97.5 ??F) Temp: [36.4 ??C (97.5 ??F)-36.7 ??C (98.1 ??F)] Heart Rate Heart Rate: 71 Heart Rate: [71-78] Blood Pressure BP: 124/76 BP: (113-129)/(70-85) Respiratory Rate Resp: 20 Resp: [14-20] SpO2 SpO2: 95 % SpO2: [95 %-96 %] Physical Exam Constitutional: Appearance: Normal appearance. HENT: Head: Normocephalic and atraumatic. Nose: Nose normal. Eyes: Extraocular Movements: Extraocular movements intact. Conjunctiva/sclera: Conjunctivae normal. Cardiovascular: Rate and Rhythm: Normal rate and regular rhythm. Heart sounds: No murmur heard. No gallop. Pulmonary: Breath sounds: No wheezing or rales. Abdominal: Palpations: Abdomen is soft. Musculoskeletal: Right lower leg: No edema. Left lower leg: No edema. Skin: General: Skin is warm and dry. Neurological: General: No focal deficit present. Mental Status: He is alert and oriented to person, place, and time. Psychiatric: Mood and Affect: Mood normal. Behavior: Behavior normal. Lab Comments: Recent Labs 02/21/2225302/20/222031 WBC 6.4 6.0 HGB 16.1 16.4 HCT 47.3 47.6 PLATELET 173 157 No results for input(s): INR in the last 168 hours. Recent Labs 02/21/224 02/20/222031 NA 137 137 K 4.0 4.0 CL 102 101 CO2 24 24 BUN 20 20 CREATININE 0.80 0.85 No results for input(s): AST, ALT, ALKPHOS, BILITOT, BILIDIR in the last 168 hours. Recent Labs 02/21/2225302/20/222031 CALCIUM 9.1 9.3 Recent Labs 02/21/2225302/20/222031 TROPONINT 0.02* <0.01 Pertinent Radiographic/Diagnostic Results: TTE 02/21/22 Interpretation Summary 1. The left ventricle is severely dilated with mildly decreased wall thickness. Systolic function is severely reduced with an EF of 17 % by Renae's biplane method. There are wall motion abnormalities as demonstrated in the attached PDF. 2. The right ventricle is normal in size and global systolic function. The estimated pulmonary artery systolic pressure could not be assessed 3. Right atrium is mildly dilated. 4. There is no hemodynamically significant valvular disease. 5. See remainder of report for additional findings. There is no prior study for comparison. EKG 02/21/22 NSR, LAD, T wave abnormality, septal infarct age undetermined Assessment: Gillian Branch is a 71 y.o. male with PMH of DM, HTN, GERD and anxiety who [facility]. He woke up around 3 AM on 02/19/22 with chest tightness and SOB. Ruled in for NSTEMI. EKG showed sinus rhythm with poor R wave progression and intraventricular conduction delay. TTE showed EF of 17% and apical WMA's. Trop at OSH +; here <0.01 -> 0.02. Presentation consistent with NSTEMI and new HFrEF concerning for ischemic cardiomyopathy. He appears euvolemic on exam. In agreement for cardiac catheterization today. Plan: # NSTEMI Telemetry monitoring Chest pain protocol Trop trend as above TTE w/ LVEF 17% S/p ASA 325 mg and Plavix 300 mg loads Continue daily ASA and Plavix Continue IV heparin Continue metoprolol 12.5 mg q6 hrs Continue Lipitor 40 mg nighty NPO for LHC # New HFrEF TTE w/ EF 17% DC IV lasix Start PO lasix 20 mg daily Monitor BMP Continue metoprolol tartrate with plan to transition to succinate Continue Losartan 50 mg daily Consider additional GDMT Consider HF consult # Excessive alcohol use Drinks ~4-6 beers daily Monitor for alcohol withdrawal (no hx of w/d) Encourage alcohol cessation/moderation Thiamine # DM II Hold home regimen A1c 7.3% SSI Monitor FSG Consider Jardiance for HFrEF and DM # HTN BP: (113-129)/(70-85) recent BP range Continue Losartan and Metoprolol Monitor trends # Anxiety Continue lexapro PRN ativan Code status: Full code DVT prophylaxis- Heparin gtt Discussed with MD Ramirez Siddiqi PA-C 02/21/2022 Pager #: [phone] Cardiology Staff I shared this visit with Ms. Najera. My role was to review the history, exam, laboratory, and imagingand to formulate the assessment and plan. I performed the medical decision making. In brief, patient admitted with dyspnea with new cardiomyopathy, which may be ischemic. For IV diuresis, cath today with further decision making pending results. Elmer Fiore MD, MARLENY, FACC, FACP, FASE Cardiovascular Medicine documented in this encounter H&P Notes Tisha Coleman MD - 02/20/2022 5:55 PM EDT Cardiology History and Physical Patient Name: Gillian Branch Date of : 1950 Age: 71 y.o. Hospital Admit Date: 02/20/2022 Inpatient Attending: Dr. Fiore PCP: Navin Souza MD Presenting Diagnosis/Chief Complaint: NSTEMI/Transferred from [facility] hospital for further management History of Present Illness: Gillian Branch is a 71 y.o. male with PMH of DM, HTN, GERD, anxiety who presented to [facility] with symptoms he thought was a panic attack. As per pt he woke up at 3AM yesterday to go to the bathroom, while going back to bed felt like the room was closing on him. He went to his front door to get some fresh air but it helped much. Reports mild chest tightness, like a chest cold and shortness of breath. He came down to drive to the hospital but felt claustrophobic in his car so instead called EMS. Pt was given clonazepam in the ED with improvement in symptoms. He reports 2 previous similar episodes, was seen by PCP in november, started on Lexapro for a presume panic attack/anxiety. Pt reports feeling better after start lexapro but forgot to take it last week. Denies chest pain, orthopnea, PND or pedal edema. No fever, chills or sick conta cts reported. In OSH vitals were stable. Labs with stable CBC, CMP. Trop I 180 >334>458>399 (ULN 60). ProBNP 4600, LDL 82, EKG sinus, LAD, non-specific intraventricular delay. Bedside TTE showed EF 35% with apical WMA. Pt received ASA 325, Plavix 600 mg, heparin drip and IV lasix and now being transferred for further management. At the time of my evaluation, he denies chest pain or shortness of breath. No sick contacts reported. He had received all his COVID shots. REVIEW OF SYSTEMS: Constitutional: weight loss, fatigue, weakness. Psychological: Anxiety / Depression Ophthalmic: blurred vision or watery or red eyes. ENT: Negative for ear discharge or running nose or cold or throat swelling. Allergy: negative for itchy/watery eyes Heme: Negative for bleeding, bruising, fatigue, jaundice, night sweats Endocrine: negative for polydipsia/polyuria/ heat intolerance Respiratory: As as HPI CVS: As in HPI GI: No abd pain, change in bowel habits, or black or bloody stools Genitourinary: No dysuria, trouble voiding, or hematuria Neurological: Negative for dizziness, seizures, syncope, facial asymmetry, speech difficulty, light-headedness, numbness and headaches. Hematological: Negative. MSK: negative for joint pain, joint stiffness or joint swelling Psychiatric/Behavioral: Negative. Previous Diagnostics: Echo: 02/20/2022 -done VR but not reported yet Past Medical History: Past Medical History: Diagnosis Date ??? Anxiety ??? Diabetes mellitus ??? GERD (gastroesophageal reflux disease) ??? HLD (hyperlipidemia) ??? Hypertension Surgical History/Problems: No past surgical history on file. Significant Family History: No family history on file. Social History: Social History Socioeconomic History ??? Marital status: Spouse name: Not on file ??? Number of children: Not on file ??? Years of education: Not on file ??? Highest education level: Not on file Occupational History ??? Not on file Tobacco Use ??? Smoking status: Former Smoker Types: Cigarettes Quit date: 03/17/1986 Years since quittin.9 ??? Smokeless tobacco: Never Used Substance and Sexual Activity ??? Alcohol use: Not on file ??? Drug use: Not on file ??? Sexual activity: Not on file Other Topics Concern ??? Not on file Social History Narrative ??? Not on file Social Determinants of Health Financial Resource Strain: Not on file Food Insecurity: Not on file Transportation Needs: Not on file Physical Activity: Not on file Housing Stability: Not on file PHYSICAL EXAM: Last set of vital signs: BP 113/70 (BP Location (NBP): Left arm, Patient Position: Lying) Pulse 72 Temp 36.7 ??C (98.1 ??F) (Oral) Resp 14 Ht 193 cm (6' 4) Wt 106.9 kg (235 lb 10.8 oz) SpO2 95% BMI 28.69 kg/m?? Gen/Constitutional: Comfortable, NAD HEENT: ADELIA, EOMI, No conjunctival pallor or scleral icterus, JVP elevated Cardiac/CVS: RRR, normal S1/S2. No S3 or S4, no m/g/r Pulm/Chest: CTAB, no wheezing or crackles Abd/GI: Soft., non tender, non distended, BS+ Musculoskeletal: No pitting edema, Pulses palpable B/L, no calf tenderness, swelling, or erythema. Neuro/MOLDER FOAM RUBBER: AAO x 3, No gross motor deficits. No sensory loss. No gait ataxia. Skin/Integumentary: No ulcer or rash Diagnostics: EKG: sinus, LAD, poor wave progression, NIVD. No current facility-administered medications on file prior to encounter. Current Outpatient Medications on File Prior to Encounter Medication Sig Dispense Refill ??? atorvastatin (Lipitor) 20 mg Tablet Take 20 mg by mouth every evening. ??? canagliflozin (Invokana) 100 mg Tablet Take 100 mg by mouth daily. ??? escitalopram (Lexapro) 10 mg Tablet Take 10 mg by mouth daily. ??? exenatide microspheres (Bydureon BCise) 2 mg/0.85 mL Auto-Injector ??? gabapentin (Neurontin) 300 mg Capsule Take 300 mg by mouth 3 times daily. ??? glimepiride (AMARYL) 4 mg Tablet Take 4 mg by mouth 2 times daily. ??? hydroCHLOROthiazide (Hydrodiuril) 12.5 mg Tablet Take 12.5 mg by mouth daily. ??? metoprolol succinate XL (Toprol-XL) 50 mg Tablet Sustained Release 24 hr Take 50 mg by mouth daily. ??? RABEprazole (ACIPHEX) 20 mg Tablet, Delayed Release (E.C.) Take 20 mg by mouth daily. ??? LORazepam (Ativan) 1 mg Tablet Take 1 mg by mouth 2 times daily as needed. ??? losartan (Cozaar) 50 mg Tablet Take 50 mg by mouth daily. LABS: Recent Results (from the past 24 hour(s)) BMP w/fasting Glucose Result Value Ref Range Glucose Fasting 282 (H) 65 - 99 mg/dL BUN 20 10 - 20 mg/dL Creatinine 0.85 0.80 - 1.50 mg/dL Sodium 137 135 - 145 mmol/L Potassium 4.0 3.5 - 5.0 mmol/L Chloride 101 98 - 107 mmol/L CO2 24 22 - 31 mmol/L Anion Gap 12 5 - 15 mmol/L Calcium 9.3 8.5 - 10.5 mg/dL Estimated GFR 89 >=60 mL/min/1.73 m?? Troponin Result Value Ref Range Troponin-T <0.01 0.00 - 0.00 ng/mL Heparin (unfractionated) Level Result Value Ref Range Heparin UFH Level 0.09 IU/mL pro-Brain Natriuretic Peptide Result Value Ref Range ProBNP 4,959 (H) <=124 pg/mL Hemogram Result Value Ref Range WBC 6.0 4.0 - 9.5 x10(3)/mcL RBC 5.12 4.58 - 5.54 x10(6)/mcL Hemoglobin 16.4 13.7 - 16.5 g/dL Hematocrit 47.6 40.5 - 48.5 % MCV 93.0 82.9 - 93.1 fL MCH 32.0 27.5 - 32.1 pg MCHC 34.5 32.0 - 35.7 g/dL Platelets 157 145 - 357 x10(3)/mcL RDWSD 43.7 36.0 - 45.0 fL RDWCV 12.6 11.4 - 13.8 % MPV 12.1 7.6 - 12.9 fL nRBC % Auto 0.0 % nRBC Abs Auto 0.000 0.000 - 0.000 x10(3)/mcL Differential, Automated Result Value Ref Range Neutrophils % 60.0 % Neutr Abs (ANC) 3.61 1.70 - 6.10 x10(3)/mcL Lymphocytes % 26.7 % Lymphocytes Abs 1.6 0.9 - 3.2 x10(3)/mcL Monocytes % 8.1 % Monocyte Abs 0.5 0.3 - 0.9 x10(3)/mcL Eosinophils % 4.3 % Eosinophils Abs 0.3 0.0 - 0.4 x10(3)/mcL Basophils % 0.7 % Basophils Abs 0.0 0.0 - 0.1 x10(3)/mcL Immature Gran % 0.20 % Julianna Gran Abs 0.01 0.00 - 0.04 x10(3)/mcL POCT Glucose Result Value Ref Range POC Glucose 344 (H) 65 - 199 mg/dL Assessment and plan: Gillian Branch is a 71 y.o. male with PMH of DM, HTN, GERD and anxiety who presented to [facility] with symptoms he thought was panic attach. Pt was found to have elevated trops. EKG showed poor R-wave progression, interventricular conduction delay. Bedside echo showed EF 35% with apical WMA. Presentation is concerning for new onset HFrEF, ? Ischemic cardiomyopathy. #NSTEMI: type I Vs Stress induced Vs type II in the setting of CHF #HFrEF: DDx ischemic Vs Less Non ischemic ( alcohol induced) -Admit to cardiology -Monitor on Tele -Serial EKG, cycle trops -pro BNP was 4600 -s/p ASA 325 mg and Plavix 300 mg -continue ASA 81 mg daily, Plavix 75 mg daily -continue metoprolol, liptor -lasix IV lasix 20 mg x 2 -TTE -start lasix 20 mg IV BID -continue Heparin gtt - LHC after TTE -check A1c, lipids, -monitor vitals #Exessive alcohol use: -drinks 4 beers daily, used to drink up to 8 beers daily -no previously hx of withdrawal. -last drink was 2 days ago -watch for alcohol withdrawal -counseled in detailed about alcohol cessation/moderation #DM2: -hold oral hypoglycemics -SSI -monitor FSG #Anxiety: -continue lexapro, clonazepam #Code Status: DNR/DNI but wants to change it now for the procedure #Diet: Cardiac/NPO after midnight #DVT PPx: Heparin drip Tisha Coleman MD 02/21/2022 Pager # [phone] documented in this encounter Miscellaneous Notes Consult Note - Noris Joel - 02/28/2022 11:30 AM EDT BIT Evaluation Referral source: Admission screening Reason for referral: Other: follow up of AUDIT score Interventions delivered: Patient education Other: Alcohol and your health pamphlet provided Consult Note - Poonam Rose RN - 02/28/2022 10:20 AM EDT Cardiac Rehabilitation Inpatient Evaluation Primary Cardiac Diagnosis: NSTEMI Cardiac Risk Factors: Smoking: no Overweight: no Hyperlipidemia: no Sedentary: no HTN: yes Family history: yes DM: yes Stress: work related Patient Education: Reviewed cardiac cath findings, implications of coronary artery disease, managingangina and risk factor modification. Reviewed managing angina /use of sl nitroglycerin. Mediterranean diet guidelines briefly reviewed. Given parameters for home exercise. 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 He is physically active most of the day and averages 5-14K steps per day on his pedometer. Phase II Referral: Participation in the outpatient cardiac rehabilitation program at [facility] was discussed. Patient agrees to a referral to this program. The referral will be sent at discharge and the patient should be contacted by the Program within 1- 2 weeks from discharge. Activity Summary: By discharge, patient will be able to perform self care, walk 5-7 minutes and go up and down stairs without signs or symptoms of ischemia. Activity Baseline Response ~10 walk HR 74 bpm 81 bpm BP 101/58 107/64 O2 Sat 97% RA 100% RA ECG SR SR Symptoms/Comments: well tolerated. No reported cardiac sx. Plan of Care - Robert Delarosa MD - 02/27/2022 10:07 PM EDT Post Cardiac Cath Note S: Patient reports no chest pain or shortness of breath. Patient reports no back pain or, groin or wrist pain O: No active bleeding noted at cath site, right radial, right and left femoral. No hematoma, or tenderness noted. Pedal pulses and Right Radial pulse intact. Last value Range last 12 hrs Temperature Temp: 36.2 ??C (97.2 ??F) Temp: [36 ??C (96.8 ??F)-36.2 ??C (97.2 ??F)] Heart Rate Heart Rate: 66 Heart Rate: [60-79] Blood Pressure BP: 103/57 BP: (89-119)/(57-79) Respiratory Rate Resp: 16 Resp: [9-22] SpO2 SpO2: 94 % SpO2: [94 %-100 %] A/P. Post cardiac cath without complications. Robert Delarosa MD 02/27/2022 Plan of Care - Effie Julio RN - 02/27/2022 3:10 PM EDT OUTCOME EVALUATION NOTE: OUTCOME SUMMARY: Patient A+Ox 4. No reports of CP or SOB. Denies pain. SR on tele. See scanned docs. Pt left floor [phone] for labor and delivery nurse, son stayed at bedside. Arrival from labor and delivery nurse, pt has bilateral groin sites, CDI. R radial TR band in place, releasing air per protocol, no complications. Pt on bedrest until 1800. No c/o of pain. Son remains at bedside. PLAN MOVING FORWARD: Continue to actively monitor. Discharge planning as appropriate. INDIVIDUALIZED FALL PREVENTION INTERVENTIONS: Patient-specific fall risk factors per assessment: [current deficits]: tele wires, IV tubing, unfamiliar environment. Assistance [level of assistance required for transfers and ambulation]: Independent Supervision [direct monitoring required during toileting and ADLs]: Eyes on Surveillance [continuous indirect monitoring]: Tele monitoring, purposefully hourly rounding, call mcallister within reach. Patient-specific fall prevention interventions for sensory deficits provided, if applicable: Lighting adjusted for specific tasks/activities, non-skid socks in place, bed in lowest locked position. CPG GOAL OUTCOME EVALUATION: Ongoing. Consult Note - Jose Luis Lopez MD - 02/23/2022 1:46 PM EDT Images from the original note were not included. Formerly [facility] [place] [address] [address] Inpatient CHIP/PAVING CONTRACTOR Interventional Cardiology Consult Note Referring Provider: Channing Gee, [address] [place] [address] Reason for Consultation: Management of ostial LAD PAVING CONTRACTOR Past Cardiac History and Relevant Comorbidities: DM HTN CAD -02/2022: p/w heart failure, flush occlusion of the LAD Ischemic Cardiomyopathy / HfREF -02/2022: EF 22% with LAD WMA's, CMR showing anterior and anterolateral viability with apical scar LV thrombus HPI: Gillian Branch is a 71 y.o. male with history of the above cardiovascular issues who presents for evaluation of his cardiovascular disease. He presented initially on 02/19 to [facility] with the feeling of a panic attack, that in retrospect was likely PND/orthopnea. Troponin was positive and ECG showed anterior Q waves. He was transferred to [facility] for further management. TTE showed EF of 20% with LAD WMA's. He denies any chest pain throughout any of this. Subsequent coronary angiography demonstrated a flushoccluded LAD collateralized by RCA septal and epicardial collaterals. CMR demonstrated apical scar with a partially viable anterior wall. Cardiac surgery and CHIP/PAVING CONTRACTOR services were consulted. He describes no prior history of angina or prior NC. 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 He denies angina in his day to day work, but does note that he has been developing increasing GARCIA and that work has been a bit more challenging due to this.No syncope or palpitations. No pedal edema. Other Past Medical History: Patient Active Problem List Diagnosis Code ??? NSTEMI (non-ST elevated myocardial infarction) I21.4 ??? Acute systolic congestive heart failure I50.21 Social History: Prior smoker, +etoh use, no drug use ALLERGIES: Allergies Allergen Reactions ??? Corticosteroids (Glucocorticoids) Rash OTHER MEDICATIONS: Current Facility-Administered Medications: ??? insulin glargine-ygfn (Semglee) (100 unit/mL) subcutaneous injection vial 10 Units, 10 Units, Subcutaneous, Nightly, Oliver Murry APRN ??? insulin lispro (HumaLOG;Admelog) (100 unit/mL) subcutaneous injection vial 0-8 Units, 0-8 Units,Subcutaneous, TID WC, Oliver Murry APRN ? ? POCT Fingerstick Glucose, , , 4x Daily AC & HS AND insulin lispro (HumaLOG;Admelog) (100unit/mL) subcutaneous injection vial 1-4 Units, 1-4 Units, Subcutaneous, 4 Times Daily AC & HS, Oliver Murry APRN, 6 Units at 02/23/22 1246 ??? clopidogreL (Plavix) tablet 75 mg, 75 mg, Oral, Daily, Oliver Murry APRN, 75 mg at 02/23/22 1323 ??? metoprolol tartrate (Lopressor) tablet 25 mg, 25 mg, Oral, Q6H ERIC, Oliver Murry, IVORY CARVER, 25mg at 02/23/22 1246 ??? spironolactone (Aldactone) tablet 12.5 mg, 12.5 mg, Oral, Daily, Oliver Murry, IVORY CARVER, 12.5 mg at 02/23/22 0906 ??? furosemide (Lasix) tablet 20 mg, 20 mg, Oral, Daily, Ramirez Najera, PA, 20 mg at 02/23/22 0906 ??? atorvastatin (Lipitor) tablet 40 mg, 40 mg, Oral, QPM, Tisha Coleman MD, 40 mg at 02/22/22 1642 ??? escitalopram (Lexapro) tablet 10 mg, 10 mg, Oral, Daily, Tisha Coleman MD, 10 mg at 02/23/22 0904 ??? gabapentin (Neurontin) capsule 300 mg, 300 mg, Oral, TID, Tisha Coleman MD, 300 mg at 02/23/22 0905 ??? losartan (Cozaar) tablet 50 mg, 50 mg, Oral, Daily, Tisha Coleman MD, 50 mg at 02/23/22 0903 ??? sodium chloride 0.9 % (flush) (BD PosiFlush Normal Saline 0.9) flush 5 mL, 5 mL, Intravenous, BID, Tisha Coleman MD, 5 mL at 02/23/22 0907 ??? sodium chloride 0.9 % (flush) (BD PosiFlush Normal Saline 0.9) flush 5-20 mL, 5-20 mL, Intravenous, Q1 Min PRN, Tisha Coleman MD ??? lidocaine (Xylocaine) 1% (10 mg/mL) injection 3 mg, 0.3 mL, Subcutaneous, Once PRN, Tisha Coleman MD ??? nitroGLYcerin (Nitrostat) disintegrating tablet 0.4 mg, 0.4 mg, Sublingual, Q5 Min PRN, Tisha Coleman MD ??? glucose (Glutose) 40% oral geL, 15-30 g of glucose, Buccal, Q30 Min PRN OR dextrose 10% infusion, 250 mL, Intravenous, Q30 Min PRN OR glucagon (Glucagen) (1 mg/mL) injection solution 1 mg, 1 mg, Intramuscular, Q30 Min PRN, Tisha Coleman MD ??? acetaminophen (Tylenol) tablet 650 mg, 650 mg, Oral, Q4H PRN, Tisha Coleman MD ??? aspirin EC tablet 81 mg, 81 mg, Oral, Daily, Tisha Coleman MD, 81 mg at 02/23/22904 ??? heparin (porcine) 50 units/mL in sodium chloride 0.45% 500 mL infusion, 0- 5,000 Units/hr, Intravenous, Continuous, Last Rate: 36 mL/hr at 02/23/22 1253, 1,800 Units/hr at 02/23/22 1253 AND heparin (porcine) (1,000 units/mL) injection 0-4,000 Units, 0-4,000 Units, Intravenous, BOLUS HEPARIN PP,Tisha Coleman MD ??? pantoprazole EC (Protonix) tablet 40 mg, 40 mg, Oral, Daily, Tisha Coleman MD, 40 mg at ??? LORazepam (Ativan) tablet 1 mg, 1 mg, Oral, Q4H PRN, Tisha Coleman MD, 1 mg at 02/22/228 ??? thiamine (Vitamin B1) tablet 100 mg, 100 mg, Oral, Daily, Tisha Coleman MD, 100 mg at 02/23/22904 ??? folic acid (Folvite) tablet 1,000 mcg, 1,000 mcg, Oral, Daily, Tisha Coleman MD, 1,000 mcg at 02/23/22903 ??? multivitamin with minerals (Thera M) tablet 1 tablet, 1 tablet, Oral, Daily, Tisha Coleman MD, 1tablet at 02/23/22903 ROS: As per HPI, otherwise review of systems was only notable for dyspnea. The remainder of the ROS was either non-pertinent or negative. PHYSICAL EXAM: Vitals: 02/23/22 0730 02/23/22 0903 02/23/22 0906 02/23/22 1149 BP: 123/70 124/77 124/77 113/83 BP Location (NBP): Left arm Left arm Patient Position: Lying Sitting Pulse: 65 73 Resp: 16 18 Temp: 36.7 ??C (98.1 ??F) 36.8 ??C (98.2 ??F) TempSrc: Oral Oral SpO2: 96% 94% Weight: Height: Constitutional: In general, alert and oriented X 3 Eyes: No scleral icterus or pale conjunctiva; no corneal arcus Ears, Nose, mouth, throat: Moist oral mucosa; no epistaxis; no visible thyromegaly Respiratory: Clear to auscultation bilaterally, Normal intensity of breath sounds with good air entry bilaterally GI: No abdominal tenderness to palpation; + bowel sounds; no rigidity or guarding Cardiovascular: RRR. S1 and S2 are normal and unobscured. No S3 or S4 appreciated. There are no audible murmurs. Carotid upstroke is normal with no audible carotid bruits. JVP was at 5cm H2O above the RA. Skin: No visible rashes or bruises on arms or face Neuro: Non-focal. Moves all extremities without limitation. CN nerves not examined. Psych: Mood appropriate. Thought process is linear Extremity: RLE:No LE edema, 2+ DP pulse LLE: No LE edema, 2+ DP pulse RUE: 2+ radial pulse LUE: 2+ radial pulse DIAGNOSTIC TESTS (I have personally reviewed the following images/tracings and the following is my own assessment): ECG 02/20/2022: Normal sinus rhythm, anteroseptal NC TTE: Severely dilated and dysfunctional LV, EF 19%, RV normal, valves normal CMRI: EF 22%, distal anterior wall and apex scar, viable basilar and mid anterior wall, laminar thrombus in the LV Cath: PAVING CONTRACTOR of the LAD, collaterals from RCA Labs / Reports Reviewed: Last 3 wbc, hgb, hct plt Recent Labs 02/23/22 0352 02/22/22 0633 02/21/22 0254 WBC 4.9 5.8 6.4 HGB 16.5 16.1 16.1 HCT 48.2 47.2 47.3 PLATELET 156 169 173 Last 3 Lytes Recent Labs 02/23/22 0352 02/22/22 0633 02/21/22 0254 NA 136 136 137 K 3.9 4.4 4.0 CL 102 102 102 CO2 23 23 24 BUN 11 13 20 CREATININE 0.72* 0.74* 0.80 PAVING CONTRACTOR Scoring: J-PAVING CONTRACTOR Score: 2 A/P: Gillian Branch is a 71 y.o. male who presents for evaluation for complex / high risk intervention of the LAD. 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 Based on a J-PAVING CONTRACTOR score of 2, this is a High complexity lesion and based on Progress PAVING CONTRACTOR score, there is a 80% chance of success and a 2-4% chance of a major com plication. We discussed that PAVING CONTRACTOR PCI performed in the setting of myocardial recovery is reasonable for symptom improvement, and that studies supporting LV functional recovery following revascularization of hibernating myocardium have had mixed results. I discussed the case with my colleagues from [facility] who agreed with an antegrade approach in order to optimize safety. We will defer any retrograde attempts at this time as we are limited in our ability to perform MCS with an impella. I will recheck an an echo Saturday to evaluate whether his LV thrombus has resolved at that time in case emergencyMCS is required. We will defer P2 Y12 inhibition at this time and load only after we cross the lesion in order to preserve potential surgical options. Recommendations: 1:Plan for PAVING CONTRACTOR PCI of the ostial LAD on Saturday 2: TTE with contrast Saturday 3: Defer P2Y12 at this time Jose Luis Lopez MD 02/23/2022 1:46 PM Care Management - Mandi Hampton RN - 02/23/2022 10:05 AM EDT OFFICE OF CARE MANAGEMENT PROGRESS NOTE LOS: Hospital Day 3 days Chart reviewed, care reviewed with primary team and at interdisciplinary rounds. Patient continues to meet inpatient level of care related to: Due for a cardiac MRI to determine need for further surgery . Functional status prior to admission: Independent Home Environment: Others in the home: pet(s) (2 cats). Current Living Arrangements: home/apartment/condo. Accessibility Concerns: 2 story home; pt states no accessibility concerns.. Current Functional Ability: Independent DME used at home: none DME Needed at Discharge: TBD closer to discharge Patient is insured through: Primary Insurance: MEDICARE Payor: MEDICARE / Plan: MEDICARE PART A & B / Product Type: *No Product type* / Secondary Insurance: FOR LIFE Plan for discharge is: Home w/o Services Outpatient Agency/Support Group Needs: None Agency Referrals: Awaiting final Plan Transportation: family or friend will provide Barriers to discharge: Discharge planning Plan going forward: Care Management will continue to follow and assist with discharge planning and coordination of care as indicated. Anticipated Date of Discharge: 02/26/2022 Office of Care Management Surgery Team Nut Grinder Mandi KO RN Pager [phone] Plan of Care - Tisha Coleman MD - 02/21/2022 9:16 PM EDT Post Cardiac Cath Note S: Patient reports no chest pain or shortness of breath. Patient reports no wrist pain O: No active bleeding noted at cath site, right radial. No hematoma, or tenderness noted. Radial pulse intact. Last value Range last 8 hrs Temperature Temp: 36.5 ??C (97.7 ??F) Temp: [36.5 ??C (97.7 ??F)-36.7 ??C (98.1 ??F)] Heart Rate Heart Rate: 74 Heart Rate: [71-79] Blood Pressure BP: 121/75 BP: (115-127)/(74-81) Respiratory Rate Resp: 15 Resp: [12-23] SpO2 SpO2: 96 % SpO2: [93 %-96 %] A/P. Post cardiac cath without complications. Initial Assessments - Bree Rivero MSW - 02/21/2022 12:17 PM EDT Office of Care Management Initial Assessment VIVIEN Montesinos reviewed record and discussed patient with Care Team. Source of Information: Team, bedside nurse, medical record, and Patient Introduced self/reviewed role; services accepted. Reason for Hospitalization: chest pain Covid Vaccination Status: 1st, 2nd & booster Last COVID test: Lab Results Component Value Date [id number] Not Detected 02/20/2022 Past medical History: Past Medical History: Diagnosis Date ??? Anxiety ??? Diabetes mellitus ??? GERD (gastroesophageal reflux disease) ??? HLD (hyperlipidemia) ??? Hypertension Hospitalizations Within the Past 30 Days: no previous admission in last 30 days Current Decision-Making Capacity: Self Advance Care Planning: Attempt Cardiopulmonary Resuscitation - Inpatient <no information> -Advanced Directive: Yes, not on file Who is your DPOA-HC?: Child (Jose Luis Branch [phone]) Current Coping/Education/Information Needs: Pt is able to make needs known and understands why he ishere. Current Functional Ability: Independent Functional Status Prior to Admission: Independent Prior ADLs & IADLs: Independent with all ADLs & IADLs Home Environment: Others in the home: pet(s) (2 cats). Current Living Arrangements: home/apartment/condo. Accessibility Concerns:2 story home; pt states no accessibility concerns.. 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) Current DME: none Home Address confirmed as: [address] [address] Social & Family Supports: All names listed below confirmed with patient as current and correct Extended Emergency Contact Information Primary Emergency Contact: JOSE LUIS BRANCH Address: [address] [place], [place] [id number] [place] [address] of [place] [address] Relation: Child Current Care Provided by: self Provides Primary Care For: pet(s) (2 cats) Caregiver if needed: child(chuckie), adult Quality of Family relationships: helpful, involved, supportive Community Resources being provided currently: none (Referral in to [facility] for counseling to address panic attacks/anxiety) Behavioral Health History: Hx of anxiety and depression. Most recently experiencing panic attacks since having back surgery several months ago. Has referral out to [facility] for counseling; waiting to hear back from them. Substance Use/Abuse confirmed: Social History Tobacco Use Smoking Status Former Smoker ??? Types: Cigarettes ??? Quit date: 03/17/1986 ??? Years since quittin.9 Smokeless Tobacco Never Used 0 No problems reported 1-2 Low level 3-5 Moderate level 6-8 Substantial level 9- 10 Severe level 0 to 7 points: Low risk 8 to 15 points: Medium risk 16 to 19 points: High risk 20 to 40 points: Addiction likely Other Pertinent/Service Specific Information: None noted Health/Prescription Coverage: Primary Insurance: MEDICARE Payor: MEDICARE / Plan: MEDICARE PART A & B / Product Type: *No Product type* / Secondary Insurance: FOR LIFE Prescription Coverage: Yes Preferred Pharmacy: No Pharmacies Listed [place] Status: Patient is a : Yes Are you enrolled in the [place] for your healthcare?: No Primary Care Provider: Navin Souza MD [phone] Patient/Caregiver Goals of Treatment: Pt eager to recover and return home. Hoping to get a handle onpanic attacks. Potential Needs for Transition of Care: none Agency Referrals: Not Applicable Transportation: no concerns Transportation Anticipated: family or friend will provide Concerns to be Addressed: denies needs/concerns at this time Assessment: Patient is admitted to Cardiology service for NSTEMI Plan: Pt to follow up with [facility] for counseling; otherwise, pt denies needs or concerns. Pt is aware that treatment team and care management team are available for needs and concerns. A member of the Care Management team will continue to monitor progress, follow for continuity of care and assist with transition of care planning. VIVIEN Ramesh, [employer] OFFBEARER Cashier Receptionist Office of Care Management [phone] Plan of Care - Tisha Coleman MD - 02/20/2022 8:48 PM EDT Images from the original note were not included. Cardiac cath Pre Procedure Note The indications, expected benefits and potential risks of heart catheterization were reviewed in detail with the patient. The potential for , heart attack, stroke, kidney failure, hemorrhage, allergic reaction, vascular complications and infection were reviewed in detail. The possibility of stenting and other percutaneous intervention with associated risk was reviewed. The possible need for emergent coronary artery bypass surgery was reviewed. After a discussion about the above, and having answered all questions posed, the patient was provided with a consent which was reviewed and signed. ASA: 3: Patient with severe systemic disease Mallampati: II: tonsillar pillars are blocked by the tongue Sedation Plan: moderate (conscious sedation) Assessment and Plan: Proceed with cardiac cath today, see progress note from today for further details. Tisha Coleman MD 02/20/2022 Pager [phone] documented in this encounter Plan of Treatment Scheduled Orders Name Type Priority Associated Order Schedule Diagnoses EKG 12 Lead ECG Routine Non-ST elevation Daily for 4 myocardial Occurrences infarction starting 2021 (NSTEMI) until 2, 2 completed Echocardiogram Echocardiography Routine Acute systolic Expecte d: Transthoracic congestive heart 02/28/2022 , failure Expires: 2021 Scheduled Referrals Name Type Priority Associated Diagnoses Order S chedule Referral to Outpatient Referral Routine Non-ST elevation Orde red: Cardiac Rehab myocardial 02/28/2022 infarction (NSTEMI) documented as of this encounter Procedures Procedure Name Priority Date/Time Associated Comments Diagnosis POCT GLUCOSE Routine 02/28/2022 11:39 Results for this AM EDT procedure are i n the results section. POCT GLUCOSE Routine 02/28/2022 7:54 Results for this AM EDT procedure are i n the results section. HC ARTHROPOD ID Routine 02/28/2022 7:15 Results f or this AM EDT procedure are i n the results section. EKG 12-LEAD Routine 02/28/2022 6:15 Non-ST elevation Results for this AM EDT myocardial procedure are i n infarction the results (NSTEMI) section. BMP W/FASTING GLUCOSE Routine 02/28/2022 3:35 Res ults for this AM EDT procedure are i n the results section. HEMOGRAM Routine 02/28/2022 3:35 Results for this AM EDT procedure are i n the results section. DIFFERENTIAL, AUTOMATED Routine 02/28/2022 3:35 R esults for this AM EDT procedure are i n the results section. HC CBC,PLT & AUTO DIFF Routine 02/28/2022 3:35 AM EDT HC MAGNESIUM, SERUM Routine 02/28/2022 3:35 Resul ts for this AM EDT procedure are i n the results section. POCT GLUCOSE Routine 02/27/2022 8:50 Results for this PM EDT procedure are i n the results section. POCT GLUCOSE Routine 02/27/2022 4:07 Results for this PM EDT procedure are i n the results section. EKG 12-LEAD Routine 02/27/2022 1:34 Non-ST elevation Results for this PM EDT myocardial procedure are i n infarction the results (NSTEMI) section. CARDIAC CATHETERIZATION Routine 02/27/2022 1:16 R esults for this PM EDT procedure are i n the results section. POCT GLUCOSE Routine 02/27/2022 7:49 Results for this AM EDT procedure are i n the results section. EKG 12-LEAD Routine 02/27/2022 6:12 Non-ST elevation Results for this AM EDT myocardial procedure are i n infarction the results (NSTEMI) section. BMP W/FASTING GLUCOSE Routine 02/27/2022 3:37 Res ults for this AM EDT procedure are i n the results section. HEMOGRAM Routine 02/27/2022 3:37 Results for this AM EDT procedure are i n the results section. DIFFERENTIAL, AUTOMATED Routine 02/27/2022 3:37 R esults for this AM EDT procedure are i n the results section. HC CBC,PLT & AUTO DIFF Routine 02/27/2022 3:37 AM EDT HC MAGNESIUM, SERUM Routine 02/27/2022 3:37 Resul ts for this AM EDT procedure are i n the results section. POCT GLUCOSE Routine 02/26/2022 9:14 Results for this PM EDT procedure are i n the results section. POCT GLUCOSE Routine 02/26/2022 4:42 Results for this PM EDT procedure are i n the results section. POCT GLUCOSE Routine 02/26/2022 11:30 Results for this AM EDT procedure are i n the results section. ECHOCARDIOGRAM LIMITED W Routine 02/26/2022 7:49 Non-ST elevat ion Results for this CONTRAST W COLOR DOPP AM EDT myocardial proced ure are in infarction the results (NSTEMI) section. POCT GLUCOSE Routine 02/26/2022 7:23 Results for this AM EDT procedure are i n the results section. EKG 12-LEAD Routine 02/26/2022 6:06 Non-ST elevation Results for this AM EDT myocardial procedure are i n infarction the results (NSTEMI) section. BMP W/FASTING GLUCOSE Routine 02/26/2022 3:55 Res ults for this AM EDT procedure are i n the results section. HEMOGRAM Routine 02/26/2022 3:55 Results for this AM EDT procedure are i n the results section. DIFFERENTIAL, AUTOMATED Routine 02/26/2022 3:55 R esults for this AM EDT procedure are i n the results section. HC VENIPUNCTURE Routine 02/26/2022 3:55 AM EDT HC MAGNESIUM, SERUM Routine 02/26/2022 3:55 Resul ts for this AM EDT procedure are i n the results section. POCT GLUCOSE Routine 02/25/2022 9:05 Results for this PM EDT procedure are i n the results section. POCT GLUCOSE Routine 02/25/2022 3:21 Results for this PM EDT procedure are i n the results section. POCT GLUCOSE Routine 02/25/2022 11:26 Results for this AM EDT procedure are i n the results section. POCT GLUCOSE Routine 02/25/2022 7:21 Results for this AM EDT procedure are i n the results section. EKG 12-LEAD Routine 02/25/2022 6:18 Non-ST elevation Results for this AM EDT myocardial procedure are i n infarction the results (NSTEMI) section. POCT GLUCOSE Routine 02/24/2022 8:47 Results for this PM EDT procedure are i n the results section. POCT GLUCOSE Routine 02/24/2022 4:06 Results for this PM EDT procedure are i n the results section. POCT GLUCOSE Routine 02/24/2022 11:27 Results for this AM EDT procedure are i n the results section. POCT GLUCOSE Routine 02/24/2022 8:49 Results for this AM EDT procedure are i n the results section. POCT GLUCOSE Routine 02/24/2022 7:29 Results for this AM EDT procedure are i n the results section. HC UNFRACTIONATED Routine 02/24/2022 3:15 Results for this HEPARIN (HEP UFH) AM EDT procedure are in the results section. BMP W/FASTING GLUCOSE Routine 02/24/2022 3:15 Res ults for this AM EDT procedure are i n the results section. HEMOGRAM Routine 02/24/2022 3:15 Results for this AM EDT procedure are i n the results section. DIFFERENTIAL, AUTOMATED Routine 02/24/2022 3:15 R esults for this AM EDT procedure are i n the results section. HC VENIPUNCTURE Routine 02/24/2022 3:15 AM EDT POCT GLUCOSE Routine 02/23/2022 8:48 Results for this PM EDT procedure are i n the results section. POCT GLUCOSE Routine 02/23/2022 4:22 Results for this PM EDT procedure are i n the results section. POCT GLUCOSE Routine 02/23/2022 12:30 Results for this PM EDT procedure are i n the results section. COVID-19 PCR Routine 02/23/2022 11:29 Results for this AM EDT procedure are i n the results section. POCT GLUCOSE Routine 02/23/2022 7:48 Results for this AM EDT procedure are i n the results section. EKG 12-LEAD Routine 02/23/2022 6:04 Non-ST elevation Results for this AM EDT myocardial procedure are i n infarction the results (NSTEMI) section. HC UNFRACTIONATED Routine 02/23/2022 3:52 Results for this HEPARIN (HEP UFH) AM EDT procedure are in the results section. BMP W/FASTING GLUCOSE Routine 02/23/2022 3:52 Res ults for this AM EDT procedure are i n the results section. HEMOGRAM Routine 02/23/2022 3:52 Results for this AM EDT procedure are i n the results section. DIFFERENTIAL, AUTOMATED Routine 02/23/2022 3:52 R esults for this AM EDT procedure are i n the results section. HC VENIPUNCTURE Routine 02/23/2022 3:52 AM EDT POCT GLUCOSE Routine 02/22/2022 8:23 Results for this PM EDT procedure are i n the results section. POCT GLUCOSE Routine 02/22/2022 4:18 Results for this PM EDT procedure are i n the results section. HC VENIPUNCTURE Routine 02/22/2022 2:13 Results f or this PM EDT procedure are i n the results section. MRI CARDIAC MORPHOLOGY Routine 02/22/2022 1:53 Re sults for this FUNCTION WWO CONTRAST PM EDT proced ure are in the results section. POCT GLUCOSE Routine 02/22/2022 11:26 Results for this AM EDT procedure are i n the results section. POCT GLUCOSE Routine 02/22/2022 7:33 Results for this AM EDT procedure are i n the results section. HC UNFRACTIONATED Routine 02/22/2022 6:33 Results for this HEPARIN (HEP UFH) AM EDT procedure are in the results section. BMP W/FASTING GLUCOSE Routine 02/22/2022 6:33 Res ults for this AM EDT procedure are i n the results section. HEMOGRAM Routine 02/22/2022 6:33 Results for this AM EDT procedure are i n the results section. DIFFERENTIAL, AUTOMATED Routine 02/22/2022 6:33 R esults for this AM EDT procedure are i n the results section. HC VENIPUNCTURE Routine 02/22/2022 6:33 AM EDT POCT GLUCOSE Routine 02/21/2022 8:15 Results for this PM EDT procedure are i n the results section. CARDIAC CATHETERIZATION Routine 02/21/2022 4:55 R esults for this PM EDT procedure are i n the results section. POCT GLUCOSE Routine 02/21/2022 4:10 Results for this PM EDT procedure are i n the results section. POCT GLUCOSE Routine 02/21/2022 11:35 Results for this AM EDT procedure are i n the results section. HC UNFRACTIONATED Routine 02/21/2022 9:04 Results for this HEPARIN (HEP UFH) AM EDT procedure are in the results section. HC VENIPUNCTURE STAT 02/21/2022 9:04 Results f or this AM EDT procedure are i n the results section. ECHOCARDIOGRAM COMPLETE Routine 02/21/2022 8:16 Non-ST elevati on Results for this W CONTRAST AM EDT myocardial procedure are i n infarction the results (NSTEMI) section. POCT GLUCOSE Routine 02/21/2022 7:31 Results for this AM EDT procedure are i n the results section. HC UNFRACTIONATED Routine 02/21/2022 2:54 Results for this HEPARIN (HEP UFH) AM EDT procedure are in the results section. BMP W/FASTING GLUCOSE Routine 02/21/2022 2:54 Res ults for this AM EDT procedure are i n the results section. HEMOGRAM Routine 02/21/2022 2:54 Results for this AM EDT procedure are i n the results section. DIFFERENTIAL, AUTOMATED Routine 02/21/2022 2:54 R esults for this AM EDT procedure are i n the results section. HC CBC,PLT & AUTO DIFF Routine 02/21/2022 2:54 AM EDT HC VENIPUNCTURE STAT 02/21/2022 2:54 Results f or this AM EDT procedure are i n the results section. HC TRIGLYCERIDES Routine 02/21/2022 2:54 Results for this AM EDT procedure are i n the results section. HC LDL CHOLESTEROL, Routine 02/21/2022 2:54 Resul ts for this DIRECT AM EDT procedure are i n the results section. HC CHOLESTEROL Routine 02/21/2022 2:54 Results fo r this AM EDT procedure are i n the results section. HC HEMOGLOBIN A1C Routine 02/21/2022 2:54 Results for this AM EDT procedure are i n the results section. POCT GLUCOSE Routine 02/21/2022 12:42 Results for this AM EDT procedure are i n the results section. POCT GLUCOSE Routine 02/20/2022 10:41 Results for this PM EDT procedure are i n the results section. RAPID COVID-19 PCR Routine 02/20/2022 9:38 Result s for this ([facility]) PM EDT procedure are in the results section. HC UNFRACTIONATED STAT 02/20/2022 8:32 Results for this HEPARIN (HEP UFH) PM EDT procedure are in the results section. HC VENIPUNCTURE STAT 02/20/2022 8:32 Results f or this PM EDT procedure are i n the results section. HEMOGRAM STAT 02/20/2022 8:32 Results for this PM EDT procedure are i n the results section. DIFFERENTIAL, AUTOMATED STAT 02/20/2022 8:32 R esults for this PM EDT procedure are i n the results section. HC CBC,PLT & AUTO DIFF STAT 02/20/2022 8:32 PM EDT HC TROPONIN T STAT 02/20/2022 8:32 Results for this PM EDT procedure are i n the results section. HC PROBNP STAT 02/20/2022 8:32 Results for this PM EDT procedure are i n the results section. EKG 12-LEAD STAT 02/20/2022 7:50 Non-ST elevation Results for this PM EDT myocardial procedure are i n infarction the results (NSTEMI) section. documented in this encounter Results POCT Glucose (02/28/2022 11:39 AM EDT) athologist Signature POC Glucose 179 65 - 199 [facility]dL [facility] Comment: Supplemental ranges: <140 mg/dL before meals <180 mg/dL all other times of the day Specimen Anatomical Collection Method Collection Time Receive d Time (Source) Location / / Volume Laterality Blood 02/28/2022 11:39 02/28/2022 AM EDT 11:39 AM EDT Ben Schaeffer MD POINT OF CARE TEST ORDERABLE S Performing Organization Address City/[facility]/[place] [address] POCT Glucose (02/28/2022 7:54 AM EDT) athologist Signature POC Glucose 160 65 - 199 [facility]dL [facility] Comment: Supplemental ranges: <140 mg/dL before meals <180 mg/dL all other times of the day Specimen Anatomical Collection Method Collection Time Receive d Time (Source) Location / / Volume Laterality Blood 02/28/2022 7:54 AM 2 7:54 EDT AM EDT Ben Schaeffer MD POINT OF CARE TEST ORDERABLE S Performing Organization Address City/[facility]/[place] [address] (ABNORMAL) Parasite Identification Tick (02/28/2022 7:15 AM EDT) Component Value Ref Test Analysis Performed At [facility] gist Range Method Time Signature Parasite Specimen CARMINA Identification submitted for [facility] identified as: [facility] Dermacentor LABORATORY species (A) Organism Dermacentor CARMINA species (A) [facility] Specimen Anatomical Collection Method Collection Time Receive d Time (Source) Location / / Volume Laterality Tick 02/28/2022 7:15 AM 2 9:13 EDT AM EDT Resulting Agency Comment Spec In Lab Robert Delarosa MD MICROBIOLOGY - GENERAL ORDER ROSEY Performing Organization Address City/State/ZIP [place] [address] EKG 12 Lead (02/28/2022 6:15 AM EDT) Component Value Ref Range Test Analysis Performed Pathologis t Method Time At Signature Ventricular rate 68 BPM MUSE SYSTEM Atrial Rate 68 BPM MUSE SYSTEM P-R Interval 178 ms MUSE SYSTEM QRS Duration 114 ms MUSE SYSTEM Q-T Interval 424 ms MUSE SYSTEM QTC Calculated 450 ms MUSE SYSTEM (Bezet) Calculated P Mcclelland 60 degrees MUSE SYSTEM Calculated R Mcclelland -36 degrees MUSE SYSTEM Calculated T Mcclelland 122 degrees MUSE SYSTEM INTERPRETATION Normal sinus rhythm MUSE SYSTEM Left axis deviation Minimal voltage criteria for LVH, may be normal variant ( Warren product ) T wave abnormality, consider lateral ischemia versus s train secondary to LVH Abnormal ECG When compared with ECG of 27-FEB-2022 13:34, No significant change was found I personally reviewed the tracing and edited the fellows int erpretation Confirmed by fellow Wesley Almonte ([id number]) on 02/28/2022 5:20:07 PM Confirmed by MD Chang Danette ([id number]) on 03/01/2022 8:27:08 AM Specimen Anatomical Collection Method Collection Time Receive d Time (Source) Location / / Volume Laterality 02/28/2022 6:15 AM 8:27 EDT AM EDT Oliver Murry IVORY CARVER ECG ORDERABLES Performing Organization Address City/[facility]/ZIP Code Phon e Number MUSE SYSTEM Differential, Automated (02/28/2022 3:35 AM EDT) P athologist Signature Neutrophils % 67.6 % [facility] Neutr Abs (ANC) 4.15 1.70 - [facility] 6.10 [facility] x10(3)/[facility] LABORATORY Lymphocytes % 16.4 % [facility] Lymphocytes Abs 1.0 0.9 - 3.2 [facility] x10(3)/[facility] LABORATORY Monocytes % 12.4 % [facility] Monocyte Abs 0.8 0.3 - 0.9 [facility] x10(3)/[facility] LABORATORY Eosinophils % 2.8 % [facility] Eosinophils Abs 0.2 0.0 - 0.4 [facility] x10(3)/[facility] LABORATORY Basophils % 0.5 % [facility] Basophils Abs 0.0 0.0 - 0.1 [facility] x10(3)/[facility] LABORATORY Immature Gran % 0.30 % [facility] Comment: Immature granulocytes(IG's)percentage an d absolute count will include metamyelocytes, myelocytes, and promyelo cytes. Blood smears from CBCs yielding IG's will be scanned manually for concor dance. If this scan disagrees with the automated IG or if promyelocytes are not ed, a manual differential will be performed. Julianna Gran Abs 0.02 0.00 - 0.04 x10(3)/[facility] MAR Y [facility] Specimen Anatomical Collection Method Collection Time Receive d Time (Source) Location / / Volume Laterality Blood 02/28/2022 3:35 AM 2 4:14 EDT AM EDT Resulting Agency Comment Spec In Lab Oliver Murry IVORY CARVER HEMATOLOGY ORDERABLES Performing Organization Address City/State/ZIP [place] [address] (ABNORMAL) Hemogram (02/28/2022 3:35 AM EDT) Analysis Performed At Patho logist Time Signature WBC 6.1 4.0 - 9.5 [facility] x10(3)/[facility] LABORATORY RBC 4.62 4.58 - [facility] 5.54 [facility] x10(6)/[facility] LABORATORY Hemoglobin 15.0 13.7 - [facility] 16.5 g/dL [facility] Hematocrit 43.1 40.5 - [facility] 48.5 % [facility] MCV 93.3 (H) 82.9 - [facility] 93.1 fL [facility] MCH 32.5 (H) 27.5 - [facility] 32.1 pg [facility] MCHC 34.8 32.0 - [facility] 35.7 g/dL [facility] Platelets 167 145 - 357 [facility] x10(3)/[facility] LABORATORY RDWSD 42.9 36.0 - [place] 45.0 [facility] LABORATORY RDWCV 12.4 11.4 - [place] 13.8 % [facility] MPV 12.0 7.6 - 12.9 [place] [facility] LABORATORY nRBC % Auto 0.0 % [facility] nRBC Abs Auto 0.000 0.000 - [place] 0.000 [facility] x10(3)/[facility] LABORATORY Specimen Anatomical Collection Method Collection Time Receive d Time (Source) Location / / Volume Laterality Blood 02/28/2022 3:35 AM 2 4:14 EDT AM EDT Resulting Agency Comment Spec In Lab Oliver Murry APRN HEMATOLOGY ORDERABLES Performing Organization Address City/State/[place] [address] Magnesium (02/28/2022 3:35 AM EDT) athologist Signature Magnesium 0.79 0.69 - 1.07 [facility] mmol/L [facility] Specimen Anatomical Collection Method Collection Time Receive d Time (Source) Location / / Volume Laterality Blood 02/28/2022 3:35 AM 2 4:14 EDT AM EDT Resulting Agency Comment Spec In Lab Oliver Diane Jeanmarie HOPPERN CHEMISTRY ORDERABLES Performing Organization Address City/[facility]/[place] [address] (ABNORMAL) BMP w/fasting Glucose (02/28/2022 3:35 AM EDT) P athologist Signature Glucose 119 (H) 65 - 99 [facility] Fasting mg/dL [facility] Comment: ?Fasting* Glucose Interpretive C riteria Normal ?65-99 mg/dL Impaired Fasting glucose ?100-125 mg/dL Consistent with Diabetes Mellitus ? >or= 126 mg/dL *Fasting is defined as no caloric intake for at least 8 hours In the absence of unequivocal hypergly cemia a plasma glucose value of >or= 126 mg/dL should be repeated on a subseq uent day. Diagnosis and Classification of Diabetes Mellitus, Position Statement from the [place] [employer]. ??Diabete s Care, Volume 33, Supplement 1, Sep 2009 BUN 15 10 - 20 mg/dL [facility] Creatinine 0.89 0.80 - 1.50 mg/dL [facility] Sodium 135 135 - 145 mmol/L [facility] Potassium 4.3 3.5 - 5.0 mmol/L [facility] Comment: Please note: ??Patients with WBC >100,00 0 may have falsely elevated Potassium levels. ??For accurate Potassium quantif ication in these patients send serum separator tube (gold top) for subsequent determinations. ??Contact the Clinical Chemistry Laboratory if there are any qu estions. Chloride 102 98 - 107 mmol/L [facility] CO2 24 22 - 31 mmol/L [facility] Anion Gap 9 5 - 15 mmol/L [facility] Calcium 9.0 8.5 - 10.5 mg/dL [facility] Estimated GFR 93 >=60 mL/min/1.73 m?? [facility] Comment: This patient's estimated GFR was calcula mick using the 2020 CKD-EPI equation. The estimated GFR can vary from the fidencio ured GFR by up to 30% in the absence of rapidly changing kidney function. Assess ment of the estimated GFR is not appropriate when creatinine concentratio ns are rapidly changing. For clinical situations in which a more precise estim ate of GFR is necessary, consider alternative methods of GFR estimation mujica ch as a 24-hour urine creatinine clearance. Assignment of CKD stage 1-5 for patients with an eGFR near the transition point between stages may be based on clinical assessment of muscle mass and symptoms in addition to eGFR. Specimen Anatomical Collection Method Collection Time Receive d Time (Source) Location / / Volume Laterality Blood 02/28/2022 3:35 AM 2 4:14 EDT AM EDT Resulting Agency Comment Spec In Lab Oliver Contreras Jeanmarie JACKSON CHEMISTRY ORDERABLES Performing Organization Address City/State/[place] [address] POCT Glucose (02/27/2022 8:50 PM EDT) P athologist Signature POC Glucose 140 65 - 199 [facility] Comment: Supplemental ranges: <140 mg/dL before meals <180 mg/dL all other times of the day Specimen Anatomical Collection Method Collection Time Receive d Time (Source) Location / / Volume Laterality Blood 02/27/2022 8:50 PM 2 8:50 EDT PM EDT Ben Schaeffer MD POINT OF CARE TEST ORDERABLE S Performing Organization Address City/[facility]/[place] [address] (ABNORMAL) POCT Glucose (02/27/2022 4:07 PM EDT) P athologist Signature POC Glucose 210 (H) 65 - 199 [facility] mg/dL [facility] Comment: Supplemental ranges: <140 mg/dL before meals <180 mg/dL all other times of the day Specimen Anatomical Collection Method Collection Time Receive d Time (Source) Location / / Volume Laterality Blood 02/27/2022 4:07 PM 2 4:07 EDT PM EDT Ben Schaeffer MD POINT OF CARE TEST ORDERABLE S Performing Organization Address City/[facility]/[place] [address] EKG 12 Lead (02/27/2022 1:34 PM EDT) Component Value Ref Range Test Analysis Performed Pathologis t Method Time At Signature Ventricular rate 76 BPM MUSE SYSTEM Atrial Rate 76 BPM MUSE SYSTEM P-R Interval 188 ms MUSE SYSTEM QRS Duration 124 ms MUSE SYSTEM Q-T Interval 430 ms MUSE SYSTEM QTC Calculated 483 ms MUSE SYSTEM (Bezet) Calculated P Mcclelland 53 degrees MUSE SYSTEM Calculated R Mcclelland -38 degrees MUSE SYSTEM Calculated T Mcclelland 107 degrees MUSE SYSTEM INTERPRETATION Normal sinus rhythm MUSE SYSTEM Left axis deviation Minimal voltage criteria for LVH, may be normal variant ( Warren product ) Abnormal ECG When compared with ECG of 27-FEB-2022 06:12, No significant change was found Confirmed by Liz Davalos ([id number]) on 02/27/2022 3:18:22 P M Specimen Anatomical Collection Method Collection Time Receive d Time (Source) Location / / Volume Laterality 02/27/2022 1:34 PM 3:18 EDT PM EDT Ben Schaeffer MD ECG ORDERABLES Performing Organization Address City/State/ZIP Code Phon e Number MUSE SYSTEM CARDIAC CATHETERIZATION (02/27/2022 1:16 PM EDT) Anatomical Region Laterality Modality Other Specimen (Source) Anatomical Location Collection Method / Collectio n Time Received Time / Laterality Volume Narrative 02/27/2022 5:24 PM EDT ?[facility] ? Cardiac Cathete rization/Intervention Report ? Patient Name: Gillian Branch ? Procedure Date: 02/27/2022 ? A #: [id number] ? Primary Physician: Jose Luis Lopez ? Case #: [id number] ? File Name: [id number] ? Catheterization Order Number: [id number] ? [facility] ? Final Report [place], [place] ? Patient Name: ? Gillian Helder ? ID#: ?[id number] ? : ?1950 ? Procedure Date: ? February 27, 2022 ?Case #: ? [id number] ? Room: ? 6 ? Case Physician: ? Jose Luis Mcmullen n, M.D. ? Start: ?08:20 ?Fellow: ? Rudy E G acad, M.D. ?Admission: ??02/20/2022 ? Discharge: ??02/28/2022 ? Procedures: ?* Coronary Angiography ?* Left Heart Catheterization ?* Coronary Ultrasound ?* Coronary Angioplasty ?* Coronary Stent Insertion ?* Coronary Embolic Protection/T hrombectomy ?* Vascular Closure Device Deplo yment ?* Intra-Aortic Balloon Pump (IA BP) Insertion ?* Intra-Aortic Balloon Pump (IA BP) Removal ?* Access Site Angiography ?* Transthoracic Echo During Cat h ? History ?Gillian Branch is a 71 year old man . He has hypertension and a family history ?of coronary artery disease. The patient's smoking status is Never. He has ?diabetes managed with oral medi cation. The patient is status post a ?recent non-ST elevation myocard ial infarction. He has a history of CHF. ?The CHF is NYHA Functional Clas s III, is newly diagnosed and is ?classified as Systolic. He also has a history of cancer. Prior to the ?initiation of this procedure, t he patient was designated as ASA Class IV. ?The CSHA clinical frailty scale is 4: Vulnerable. ? Diagnostic Tests: ?Prior Coronary Angiography: ? Prior coronary angiograp hy was performed on 02/21/2022 and showed ? obstructive CAD. LV ejec tion fraction within 6 months is 17%. ?Electrocardiography: ? EKG was assessed by ECG. EKG was Abnormal. EKG showed other ? abnormality. ?Medications Prior to Procedure: ? Aspirin, Angiotensin II Receptor Ciara, Beta Ciara and Statin. ? Indications for Diagnostic Cath: ?The priority of the diagnostic procedure was Urgent. The indication for ?the labor and delivery nurse visit is ACS great er than 24 hrs and cardiomyopathy. Chest ?pain symptom assessment was: Ty pical Angina. Ventricular support was ?supplied with mechanical suppor t with Intra-aortic balloon pump (IABP) ?Inserted during procedure and p rior to intervention. ? Technique: ?A 6 SLFr sheath was inserted in the right radial artery utilizing the ?Seldinger technique. An 8Fr she ath was inserted in the right femoral ?artery utilizing the Seldinger technique. An 8Fr sheath was inserted in ?the left femoral vein utilizing the Seldinger technique. An 8Fr sheath ?was inserted in the left femora l artery utilizing the Seldinger ?technique. The left coronary ar bev was injected utilizing an 8Fr EBU 3.5 ?catheter. A 6Fr JR 4 catheter w as used to inject the right coronary ?artery. Left ventricular pressu re was performed utilizing a 6Fr JR 4 ?catheter. Coronary angioplasty, coronary stent insertion and coronary ?embolic protection/thrombectomy were performed and the equipment utilized ?will be described in the interv ention summary section. 13,000 units of ?heparin were administered. A to jesús of 600cc of Omnipaque were opened, ?390cc of Omnipaque were adminis tered and 210cc of Omnipaque were wasted. ?Radiation: Fluoro time was 66.8 minutes, dose area product was 18,000 ?mGYcm2 and air kerma was 3,563 mGY. See the case log for additional ?details. ?The patient received the follow ing medications prior to and during the ?procedure: ? Unfractionated Heparin. ? Hemodynamics: ?Left Heart Pressures ? Resting: ? Syst D iast ? EDP ?a ?v ? m ?Ao 115 ?? 53 ?75 ?LV 115 ? 4 ? Coronary Angiography: ?Dominance: Right ?Left Main ? There was moderate diffu se (<=50% stenosis) disease of the entire ? vessel segment of the le ft main artery. ??The distal segment of the ? left main had 60% stenos is. ?Left Anterior Descending ? There was a single discr ete total occlusion of the ostial segment of ? the left anterior descen ding artery (LAD). ??The proximal segment of ? the LAD had a single dis crete 99% stenosis. ? There was a 95% stenosis of the ostial segment of the first diagonal ? branch (Diagonal 1) of t he LAD. ? There was a 75% stenosis of the ostial segment of the second ? diagonal branch (Diagona l 2) of the LAD. ?Left Circumflex ? As a consequence of the catheterization/intervention procedures, a ? 90% diffuse stenosis dev eloped in the proximal segment of the left ? circumflex artery (LCX). There was evidence of thrombus in this ? lesion. ?Right Coronary Artery ? The right coronary arter y (RCA) was normal, free of disease. ?Ramus ? There was a 90% stenosis of the ostial segment of the ramus. ? Intravascular Imaging/Physiology: ?Intravascular Ultrasound was pe rformed in the proximal LCX using a 8 Fr ?EBU 3.5 guiding catheter and a 3.1 Fr Refinity 42 MHz catheter using auto ?1 mm/sec pullback. ??Imaging wa s successful. ??Image quality was good. ??The ?proximal LCX showed thrombus. ?Intravascular Ultrasound was pe rformed in the proximal LAD using a 8 Fr ?EBU 3.5 guiding catheter and a 3.1 Fr Refinity 42 MHz catheter using auto ?1 mm/sec pullback. ??Imaging wa s successful. ??Image quality was good. ??The ?proximal LAD showed severe diff use atherosclerotic plaque. ?Post Intervention: The stent wa s well expanded and apposed. ? Indication for Intervention: ?Coronary intervention was indic ated for primary therapy for an acute ?myocardial infarction. The prio rity for the procedure was Urgent. The ?NCDR indication for the procedu re was NSTE-ACS. LVEF within one week was ?19%. Syntax Score was High. PCI is performed after surgical consult and ?Surgery Not Recommended. An int raaortic balloon pump was inserted for ?Prophylaxis. ? Intervention Summary: ?Left Anterior Descending Artery ? Ostial 100% ? Stent insertion was performed on the total occlusion in the ? ostial segment of the LAD. This was a chronic total occlusion ? lesion. Accordi ng to the ACC/AHA classification system, this ? lesion was a ty pe C high risk lesion. Primary prevention of ? restenosis was the indication for stent insertion. This was ? the culprit les ion. A guidewire was placed across this lesion. ? Vessel flow pre intervention was JAIRO 0. Lesion length was ? 20mm. This lesi on was contiguous with LM-distal. The lesion ? involves a bifu rcation with the Ramus. This bifurcation lesion ? was treated wit h a single stent, side branch dilated post ? stent technique and a final kissing balloon post- dilation. ? Stent insertion was accomplished through an 8 Fr. EBU 3.5 ? guide. ??A wil ounted 3.50 x 22 mm Resolute ALONZO (MOIRA) was ? deployed with a maximum inflation pressure of 12 atmospheres. ? Following stent deployment, the lesion was dilated using a ? 5.00mm NC EUPHO RA 08 MM balloon with a maximum inflation ? pressure of 12 atmospheres. ? The final outco me was defined as successful. A coronary ? arteriolar vaso dilator was administered as part of the ? intervention on this lesion. There was no residual stenosis ? following this intervention. The final JAIRO flow was 3. ? Proximal 99% ? Stent insertion was performed on the 99% stenosis in the ? proximal segmen t of the LAD. This was a chronic total ? occlusion lesio n. This lesion was designated a type C high ? risk lesion bas ed on ACC/AHA classification system. Primary ? prevention of r estenosis was the indication for stent ? insertion. This was the culprit lesion. A guidewire was placed ? across this les ion. Vessel flow pre intervention was JAIRO 0. ? Lesion length w as 12mm. This lesion was severely calcified. ? The lesion invo lves a bifurcation with the D1. This ? bifurcation les ion was treated with a single stent, side ? branch dilated post stent technique and a final kissing ? balloon post-di lation. ? Stent insertion was accomplished through an 8 Fr. EBU 3.5 ? guide. ??The [place] was predilated with a 2.50mm NC EUPHORA 12 ? MM balloon with a maximum inflation pressure of 12 ? atmospheres. ?? A premounted 3.00 x 26 mm Resolute ALONZO (MOIRA) ? was deployed wi th a maximum inflation pressure of 12 ? atmospheres. ?? Following stent deployment, the lesion was ? dilated using a 4.00mm NC EUPHORA 20 MM balloon with a maximum ? inflation press ure of 12 atmospheres. ? The final outco me was defined as successful. A coronary ? arteriolar vaso dilator was administered as part of the ? intervention on this lesion. There was no residual stenosis ? following this intervention. The final JAIRO flow was 3. ? &&&. ?First Diagonal Branch of the LA D ? Ostial 95% ? Angioplasty was performed on the 95% stenosis in the ostial ? segment of the Diagonal 1. This was a de silviano lesion. ? According to th e ACC/AHA classification system, this lesion ? was a type B2 m oderate risk lesion. A guidewire was placed ? across this les ion. Vessel flow pre intervention was JAIRO 0. ? Lesion length w as 5mm. ? Angioplasty was accomplished through an 8 Fr EBU 3.5 guide ? utilizing an EU PHORA 15 MM balloon with a maximum size of ? 2.00mm and a ma ximum inflation pressure of 12 atmospheres. ? The final outco me was defined as successful. The residual ? stenosis follow ing this intervention was 10%. The final JAIRO ? flow was 3. ?Second Diagonal Branch of the L AD ? Ostial 75% ? Angioplasty was performed on the 75% stenosis in the ostial ? segment of the Diagonal 2. This was a de silviano lesion. This ? lesion was mu gnated a type B2 moderate risk lesion based on ? ACC/AHA classif ication system. A guidewire was placed across ? this lesion. Ve ssel flow pre intervention was JAIRO 0. Lesion ? length was 5mm. ? Angioplasty was accomplished through an 8 Fr EBU 3.5 guide ? utilizing an EU PHORA 12 MM balloon with a maximum size of ? 2.00mm and a ma ximum inflation pressure of 12 atmospheres. ? The final outco me was defined as successful. A coronary ? arteriolar vaso dilator was administered as part of the ? intervention on this lesion. The residual stenosis following ? this interventi on was 20%. The final JAIRO flow was 3. ?Left Circumflex Artery ? Proximal 90% ? Thrombectomy wa s performed on the 90% stenosis in the proximal ? segment of the LCX. This was a de silviano lesion. According to ? the ACC/AHA cla ssification system, this lesion was a type B1 ? high risk lesio n. A guidewire was placed across this lesion. ? Vessel flow pre intervention was JAIRO 3. Lesion length was ? 10mm. ? Thrombectomy wa s accomplished through an 8 Fr EBU 3.5 guide ? utilizing an Ex port Advance. ? The final outco me was defined as successful. The residual ? stenosis follow ing this intervention was 10%. The final JAIRO ? flow was 3. ?Ramus ? Ostial 90% ? Angioplasty was performed on the 90% stenosis in the ostial ? segment of the ramus. This was a de silviano lesion. This lesion ? was designated a type B2 high risk lesion based on ACC/AHA ? classification system. This was the culprit lesion. A ? guidewire was p laced across this lesion. Vessel flow pre ? intervention wa s JAIRO 2. Lesion length was 9mm. ? Angioplasty was accomplished through an 8 Fr EBU 3.5 guide ? utilizing an EU PHORA 15 MM balloon with a maximum size of ? 2.00mm and a ma ximum inflation pressure of 12 atmospheres. ? The final outco me was defined as successful. The residual ? stenosis follow ing this intervention was 20%. The final JAIRO ? flow was 3. ? Vascular Access: ?Vascular Access Angiogram: ? A selective angiogram at the left femoral artery revealed mild ? diffuse disease. ? A selective angiogram at the right femoral artery revealed mild ? diffuse disease. ?Vascular Ultrasound: ? Ultrasound of the left f emoral artery was used to guide access and ? showed vessel patent wit h mild disease. Needle entry was observed. ? Ultrasound of the right femoral artery was used to guide access and ? showed vessel patent wit h mild disease. Needle entry was observed. ?Vascular Access Management: ? A 6 Fr Perclose was depl oyed at the left femoral artery access site. ? This device was successf ul. ? Manual Compression of th e left femoral vein access site was ? performed. ? Mechanical Compression o f the right radial artery access site was ? performed. ? A 6 Fr Perclose was depl oyed at the right femoral artery access ? site. This device was mujica ccessful. ? Dual Antiplatelet (DAPT) Recommendations : ?Drug eluting stent (MOIRA) insert ed. ?P2Y12 Loading dose Clopidogrel 600 mg PO given in lab. ?Recommended anti-platelet/anti- thrombotic regimen: ?Start aspirin 81 mg daily now a nd continue for indefinitely. ?Start clopidogrel 75 mg daily n ow and continue for indefinitely. ?These recommendations are made at the time of the intervention. Patient ?and provider preferences or a c hanging clinical situation may require ?modification of this regimen. C [facility] Interventional Cardiology for ?questions. ?This patient has a high DAPT sc ore and may benefit from prolonged (12- 30 ?months) dual antiplatelet thera py if the patient has completed 12 months ?of DAPT without having a major bleeding or ischemic event and the patient ?is NOT on chronic anticoagulati on. This should be used for guidance in ?the overall conversation about prolonged dual antiplatelet therapy and ?not as a recommendation for or against any medical treatment. Consult ?http://tools.acc.org/DAPTriskap p/#!/content/calculator/ or [facility] ?Interventional Cardiology for q uestions ? Conclusions: ?* Significant stenosis of the l eft main ?* Two vessel coronary artery di sease (LAD and LCX) ?* Successful stent insertion of the proximal LAD lesion ?* Successful thrombectomy of th e proximal LCX lesion ?* Successful stent insertion of the ostial LAD lesion ?* Successful angioplasty of the ostial D1 lesion ?* Successful angioplasty of the ostial Ramus lesion ?* Successful angioplasty of the ostial D2 lesion ?* See Dual Antiplatelet (DAPT) Recommendations above ?* Successful PAVING CONTRACTOR PCI of the LAD with preservation of all side branches. ? Complications/Events: ?The patient had no complication s during these procedures. ? Comments: ?Challenging case of a 66 y/o ma n with a newly dx'ed ischemic ?cardiomyopathy presenting with partially viable LAD territory myocardium ?and an ostial LAD PAVING CONTRACTOR. MCS was utilized using an IABP given EF of 19% and ?anticipated unprotected LM PCI. Given LV thrombus, impella could not be ?utilized and therefore this was a planned antegrade only case. Initial ?attempts to wire the vessel wit h a balloon pilot 200 were unsuccessful. The wire ?was continually deflected into the ramus so a twin pass dual lumen ?microcatheter was used to attem pt to puncture the LAD proximal cap, first ?with a gladius mongo, then a ga ia 2 NXT wire, but these were ?unsuccessful, with the latter w sanam entering the D1 (proximal to the ?occlusion). At this time, he de veloped ST elevations on the monitor and ?angiography demonstrated thromb us in the proximal LCX, confirmed by IVUS. ?Eptifibatide was bolused and as piration thrombectomy was performed with ?near resolution of the thrombus . Attention was turned back to the LAD. A ?hornet 14 penetration wire was able to be advanced into the D1 (supported ?by a Cued flex microcather), a nd redirected intraplaque. After several ?wire perforations outside the v essel architecture, we successfully ?crossed intraplaque (confirmed by IVUS) into the mid LAD. True lumen ?position was confirmed in ortho gonal views and the microcatheter was ?advanced into the distal vessel with positioning again confirmed by ?distal tip injection. Workhorse wires were placed in the distal LAD and ?the D2 (using a dual lumen MC) along with one in the ramus and one in the ?LCX. IVUS demonstrated scattere d 4 quadrant calcification. After vessel ?preparation was performed with high pressure NC balloon inflations, two ?overlapping stents were placed in the LM extending to the mid LAD, ?jailing the LCX, ramus, D1 and D2. The D2, D1 and ramus were all rewired ?and kissing balloon inflations were performed in all of these side ?branches. Attempts were made to rewire the retroflexed LCX using a twin ?pass with and without reverse w iring technique along with a SC120 MC, ?however due to severe tortuosit y we were unable to secure adequate distal ?position and we decided to leav e the LCX jailed. Final angiographic / ?IVUS result was excellent with well expanded/apposed stents. IABP and ?femoral sheaths were removed an d perclosed successfully. ?The attending physician was presen t for the entire procedure. ?Dr. Jose Luis Lopez M.D. was pre sent during the moderate sedation ?intraservice time as documented by the sedation nurse. ??Case time = 04:28. ?Dr. Jose Luis Lopez M.D. perform ed the coronary angiography, left heart ?catheterization, stent insertion-c oronary, embolic ?protection/thrombectomy-coronary, access site angiography, IABP insertion ?in labor and delivery nurse, IVUS # coronary, diamond oplasty-coronary, vascular closure ?device, IABP removal in labor and delivery nurse a nd transthoracic echo . ? Jose Luis Lopez, M.D. ? Electronically Signed by: Jose Luis So in, M.D. ? Report Finalized: 02/27/2022 ??17:17 ? Report Last Ammended: 04/02/2022 ??15:16 ? Procedure Note Jose Luis Lopez MD - 04/02/2022Format ting of this note might be different from the original. [facility] Cardiac Catheterization/Intervention Re port Patient Name: Gillian Branch Procedure Date: 02/27/2022 A #: [id number] Primary Physician: Jose Luis Lopez Case #: [id number] File Name: [id number] Catheterization Order Number: [id number] [facility] [employer] Load[employer] [facility] Final Report [place], [place] Patient Name: Gillian Branch ID#: [id number] : 1950 Procedure Date: February 27, 2022 Case #: [id number] Room: 6 Case Physician: Jose Luis Lopez M.D. S tart: 08:20 Fellow: Rudy Bush M.D. Admission : 02/20/2022 Discharge: 02/28/2022 Procedures: * Coronary Angiography * Left Heart Catheterization * Coronary Ultrasound * Coronary Angioplasty * Coronary Stent Insertion * Coronary Embolic Protection/Thrombect suzanna * Vascular Closure Device Deployment * Intra-Aortic Balloon Pump (IABP) Inse rtion * Intra-Aortic Balloon Pump (IABP) Zach vivian * Access Site Angiography * Transthoracic Echo During Cath History Gillian Branch is a 71 year old man. He has hypertension and a family history of coronary artery disease. The patient 's smoking status is Never. He has diabetes managed with oral medication. The patient is status post a recent non-ST elevation myocardial infa rction. He has a history of CHF. The CHF is NYHA Functional Class III, i s newly diagnosed and is classified as Systolic. He also has a h istory of cancer. Prior to the initiation of this procedure, the patie nt was designated as ASA Class IV. The [facility] clinical frailty scale is 4: V ulnerable. Diagnostic Tests: Prior Coronary Angiography: Prior coronary angiography was performe d on 02/21/2022 and showed obstructive CAD. LV ejection fraction w ithin 6 months is 17%. Electrocardiography: EKG was assessed by ECG. EKG was Abnorm al. EKG showed other abnormality. Medications Prior to Procedure: Aspirin, Angiotensin II Receptor Blocke r, Beta Ciara and Statin. Indications for Diagnostic Cath: The priority of the diagnostic procedur e was Urgent. The indication for the labor and delivery nurse visit is ACS greater than 24 hrs and cardiomyopathy. Chest pain symptom assessment was: Typical An simi. Ventricular support was supplied with mechanical support with I ntra-aortic balloon pump (IABP) Inserted during procedure and prior to intervention. Technique: A 6 SLFr sheath was inserted in the rig ht radial artery utilizing the Seldinger technique. An 8Fr sheath was inserted in the right femoral artery utilizing the Seldinger techniqu e. An 8Fr sheath was inserted in the left femoral vein utilizing the Janie ry technique. An 8Fr sheath was inserted in the left femoral artery utilizing the Seldinger technique. The left coronary artery was injected utilizing an 8Fr EBU 3.5 catheter. A 6Fr JR 4 catheter was used to inject the right coronary artery. Left ventricular pressure was p erformed utilizing a 6Fr JR 4 catheter. Coronary angioplasty, coronar y stent insertion and coronary embolic protection/thrombectomy were pe rformed and the equipment utilized will be described in the intervention s ummary section. 13,000 units of heparin were administered. A total of 6 00cc of Omnipaque were opened, 390cc of Omnipaque were administered an d 210cc of Omnipaque were wasted. Radiation: Fluoro time was 66.8 minutes , dose area product was 18,000 mGYcm2 and air kerma was 3,563 mGY. See the case log for additional details. The patient received the following medi cations prior to and during the procedure: Unfractionated Heparin. Hemodynamics: Left Heart Pressures Resting: Syst Diast EDP a v m Ao 115 53 75 LV 115 4 Coronary Angiography: Dominance: Right Left Main There was moderate diffuse (<=50% steno sis) disease of the entire vessel segment of the left main artery. The distal segment of the left main had 60% stenosis. Left Anterior Descending There was a single discrete total occlu silvino of the ostial segment of the left anterior descending artery (LA D). The proximal segment of the LAD had a single discrete 99% steno sis. There was a 95% stenosis of the ostial segment of the first diagonal branch (Diagonal 1) of the LAD. There was a 75% stenosis of the ostial segment of the second diagonal branch (Diagonal 2) of the LAD . Left Circumflex As a consequence of the catheterization /intervention procedures, a 90% diffuse stenosis developed in the p roximal segment of the left circumflex artery (LCX). There was evid ence of thrombus in this lesion. Right Coronary Artery The right coronary artery (RCA) was nor mal, free of disease. Ramus There was a 90% stenosis of the ostial segment of the ramus. Intravascular Imaging/Physiology: Intravascular Ultrasound was performed in the proximal LCX using a 8 Fr EBU 3.5 guiding catheter and a 3.1 Fr R efinity 42 MHz catheter using auto 1 mm/sec pullback. Imaging was successf ul. Image quality was good. The proximal LCX showed thrombus. Intravascular Ultrasound was performed in the proximal LAD using a 8 Fr EBU 3.5 guiding catheter and a 3.1 Fr R efinity 42 MHz catheter using auto 1 mm/sec pullback. Imaging was successf ul. Image quality was good. The proximal LAD showed severe diffuse athe rosclerotic plaque. Post Intervention: The stent was well e xpanded and apposed. Indication for Intervention: Coronary intervention was indicated for primary therapy for an acute myocardial infarction. The priority for the procedure was Urgent. The NCDR indication for the procedure was N BOB-ACS. LVEF within one week was 19%. Syntax Score was High. PCI is perf ormed after surgical consult and Surgery Not Recommended. An intraaortic balloon pump was inserted for Prophylaxis. Intervention Summary: Left Anterior Descending Artery Ostial 100% Stent insertion was performed on the to jesús occlusion in the ostial segment of the LAD. This was a c hronic total occlusion lesion. According to the ACC/AHA classi fication system, this lesion was a type C high risk lesion. P rimary prevention of restenosis was the indication for stent insertion. This was the culprit lesion. A guidewire was erik valerie across this lesion. Vessel flow pre intervention was JAIRO 0 . Lesion length was 20mm. This lesion was contiguous with L M-distal. The lesion involves a bifurcation with the Ramus. This bifurcation lesion was treated with a single stent, side b ranch dilated post stent technique and a final kissing bal loon post-dilation. Stent insertion was accomplished throug h an 8 Fr. EBU 3.5 guide. A premounted 3.50 x 22 mm Resolu te ALONZO (MOIRA) was deployed with a maximum inflation press ure of 12 atmospheres. Following stent deployment, the lesion was dilated using a 5.00mm NC EUPHORA 08 MM balloon with a maximum inflation pressure of 12 atmospheres. The final outcome was defined as succes sful. A coronary arteriolar vasodilator was administered as part of the intervention on this lesion. There was no residual stenosis following this intervention. The final JAIRO flow was 3. Proximal 99% Stent insertion was performed on the 99 % stenosis in the proximal segment of the LAD. This was a chronic total occlusion lesion. This lesion was desig nated a type C high risk lesion based on ACC/AHA classifica tion system. Primary prevention of restenosis was the indica tion for stent insertion. This was the culprit lesion. A guidewire was placed across this lesion. Vessel flow pre int ervention was JAIRO 0. Lesion length was 12mm. This lesion was severely calcified. The lesion involves a bifurcation with the D1. This bifurcation lesion was treated with a s sinan stent, side branch dilated post stent technique and a final kissing balloon post-dilation. Stent insertion was accomplished throug h an 8 Fr. EBU 3.5 guide. The lesion was predilated with a 2.50mm NC EUPHORA 12 MM balloon with a maximum inflation pre ssure of 12 atmospheres. A premounted 3.00 x 26 mm Resolute ALONZO (MOIRA) was deployed with a maximum inflation p ressure of 12 atmospheres. Following stent deployment , the lesion was dilated using a 4.00mm NC EUPHORA 20 MM balloon with a maximum inflation pressure of 12 atmospheres. The final outcome was defined as succes sful. A coronary arteriolar vasodilator was administered as part of the intervention on this lesion. There was no residual stenosis following this intervention. The final JAIRO flow was 3. &&&. First Diagonal Branch of the LAD Ostial 95% Angioplasty was performed on the 95% st enosis in the ostial segment of the Diagonal 1. This was a d e silviano lesion. According to the ACC/AHA classification system, this lesion was a type B2 moderate risk lesion. A g uidewire was placed across this lesion. Vessel flow pre int ervention was JAIRO 0. Lesion length was 5mm. Angioplasty was accomplished through an 8 Fr EBU 3.5 guide utilizing an EUPHORA 15 MM balloon with a maximum size of 2.00mm and a maximum inflation pressure of 12 atmospheres. The final outcome was defined as succes sful. The residual stenosis following this intervention wa s 10%. The final JAIRO flow was 3. Second Diagonal Branch of the LAD Ostial 75% Angioplasty was performed on the 75% st enosis in the ostial segment of the Diagonal 2. This was a d e silviano lesion. This lesion was designated a type B2 moderat e risk lesion based on ACC/AHA classification system. A guidew sanam was placed across this lesion. Vessel flow pre interventi on was JAIRO 0. Lesion length was 5mm. Angioplasty was accomplished through an 8 Fr EBU 3.5 guide utilizing an EUPHORA 12 MM balloon with a maximum size of 2.00mm and a maximum inflation pressure of 12 atmospheres. The final outcome was defined as succes sful. A coronary arteriolar vasodilator was administered as part of the intervention on this lesion. The residu al stenosis following this intervention was 20%. The final TI NC flow was 3. Left Circumflex Artery Proximal 90% Thrombectomy was performed on the 90% s tenosis in the proximal segment of the LCX. This was a de silviano lesion. According to the ACC/AHA classification system, this lesion was a type B1 high risk lesion. A guidewire was place d across this lesion. Vessel flow pre intervention was JAIRO 3 . Lesion length was 10mm. Thrombectomy was accomplished through a n 8 Fr EBU 3.5 guide utilizing an [place] [employer]. The final outcome was defined as succes sful. The residual stenosis following this intervention wa s 10%. The final JAIRO flow was 3. Ramus Ostial 90% Angioplasty was performed on the 90% st enosis in the ostial segment of the ramus. This was a de nov o lesion. This lesion was designated a type B2 high risk lesi on based on ACC/AHA classification system. This was the cul prit lesion. A guidewire was placed across this lesion . Vessel flow pre intervention was JAIRO 2. Lesion length was 9mm. Angioplasty was accomplished through an 8 Fr EBU 3.5 guide utilizing an EUPHORA 15 MM balloon with a maximum size of 2.00mm and a maximum inflation pressure of 12 atmospheres. The final outcome was defined as succes sful. The residual stenosis following this intervention wa s 20%. The final JAIRO flow was 3. Vascular Access: Vascular Access Angiogram: A selective angiogram at the left femor al artery revealed mild diffuse disease. A selective angiogram at the right femo ral artery revealed mild diffuse disease. Vascular Ultrasound: Ultrasound of the left femoral artery w as used to guide access and showed vessel patent with mild disease. Needle entry was observed. Ultrasound of the right femoral artery was used to guide access and showed vessel patent with mild disease. Needle entry was observed. Vascular Access Management: A 6 Fr Perclose was deployed at the lef t femoral artery access site. This device was successful. Manual Compression of the left femoral vein access site was performed. Mechanical Compression of the right rad ial artery access site was performed. A 6 Fr Perclose was deployed at the rig ht femoral artery access site. This device was successful. Dual Antiplatelet (DAPT) Recommendations : Drug eluting stent (MOIRA) inserted. P2Y12 Loading dose Clopidogrel 600 mg P O given in lab. Recommended anti-platelet/anti-thrombot ic regimen: Start aspirin 81 mg daily now and riley nue for indefinitely. Start clopidogrel 75 mg daily now and c ontinue for indefinitely. These recommendations are made at the t leonardo of the intervention. Patient and provider preferences or a changing clinical situation may require modification of this regimen. Consult [facility] Interventional Cardiology for questions. This patient has a high DAPT score and may benefit from prolonged (12-30 months) dual antiplatelet therapy if th e patient has completed 12 months of DAPT without having a major bleeding or ischemic event and the patient is NOT on chronic anticoagulation. This should be used for guidance in the overall conversation about prolonge d dual antiplatelet therapy and not as a recommendation for or against any medical treatment. Consult http://tools.acc.org/DAPTriskapp/#!/con tent/calculator/ or [facility] Interventional Cardiology for questions Conclusions: * Significant stenosis of the left main * Two vessel coronary artery disease (L AD and LCX) * Successful stent insertion of the pro ximal LAD lesion * Successful thrombectomy of the proxim al LCX lesion * Successful stent insertion of the ost ial LAD lesion * Successful angioplasty of the ostial D1 lesion * Successful angioplasty of the ostial Ramus lesion * Successful angioplasty of the ostial D2 lesion * See Dual Antiplatelet (DAPT) Recommen dations above * Successful PAVING CONTRACTOR PCI of the LAD with pr eservation of all side branches. Complications/Events: The patient had no complications during these procedures. Comments: Challenging case of a 66 y/o man with a newly dx'ed ischemic cardiomyopathy presenting with partiall y viable LAD territory myocardium and an ostial LAD PAVING CONTRACTOR. MCS was utilized using an IABP given EF of 19% and anticipated unprotected LM PCI. Given L V thrombus, impella could not be utilized and therefore this was a plann ed antegrade only case. Initial attempts to wire the vessel with a brownyn t 200 were unsuccessful. The wire was continually deflected into the jose s so a twin pass dual lumen microcatheter was used to attempt to pu ncture the LAD proximal cap, first with a gladius mongo, then a dontae 2 NXT wire, but these were unsuccessful, with the latter wire ente ring the D1 (proximal to the occlusion). At this time, he developed ST elevations on the monitor and angiography demonstrated thrombus in th e proximal LCX, confirmed by IVUS. Eptifibatide was bolused and aspiration thrombectomy was performed with near resolution of the thrombus. Attent ion was turned back to the LAD. A hornet 14 penetration wire was able to be advanced into the D1 (supported by a mamba flex microcather), and redir ected intraplaque. After several wire perforations outside the vessel ar chitecture, we successfully crossed intraplaque (confirmed by IVUS) into the mid LAD. True lumen position was confirmed in orthogonal vi ews and the microcatheter was advanced into the distal vessel with po sitioning again confirmed by distal tip injection. Workhorse wires w ere placed in the distal LAD and the D2 (using a dual lumen MC) along wi th one in the ramus and one in the LCX. IVUS demonstrated scattered 4 quad rant calcification. After vessel preparation was performed with high pre ssure NC balloon inflations, two overlapping stents were placed in the L M extending to the mid LAD, jailing the LCX, ramus, D1 and D2. The D2, D1 and ramus were all rewired and kissing balloon inflations were per formed in all of these side branches. Attempts were made to rewire the retroflexed LCX using a twin pass with and without reverse wiring te chnique along with a SC120 MC, however due to severe tortuosity we wer e unable to secure adequate distal position and we decided to leave the LC X jailed. Final angiographic / IVUS result was excellent with well exp anded/apposed stents. IABP and femoral sheaths were removed and perclo sed successfully. The attending physician was present for the entire procedure. Dr. Jose Luis Lopez M.D. was present during the moderate sedation intraservice time as documented by the sedation nurse. Case time = 04:28. Dr. Jose Luis Lopez M.D. performed th e coronary angiography, left heart catheterization, stent insertion-delagdillo ry, embolic protection/thrombectomy-coronary, acces s site angiography, IABP insertion in labor and delivery nurse, IVUS # coronary, angioplas ty-coronary, vascular closure device, IABP removal in labor and delivery nurse and tr ansthoracic echo . Jose Luis Lopez M.D. Electronically Signed by: Jose Luis velázquez M.D. Report Finalized: 02/27/2022 17:17 Report Last Ammended: 04/02/2022 15:16 Jose Luis Lopez MD CARDIAC CATH ORDERABLES POCT Glucose (02/27/2022 7:49 AM EDT) P athologist Signature POC Glucose 161 65 - 199 CARMINA ROCIO mg/dL [facility] Comment: Supplemental ranges: <140 mg/dL before meals <180 mg/dL all other times of the day Specimen Anatomical Collection Method Collection Time Receive d Time (Source) Location / / Volume Laterality Blood 02/27/2022 7:49 AM 7:49 EDT AM EDT [place] Analia MD POINT OF CARE TEST ORDERABLE S Performing Organization Address City/State/ZIP [place] [address] EKG 12 Lead (02/27/2022 6:12 AM EDT) Component Value Ref Range Test Analysis Performed Pathologis t Method Time At Signature Ventricular rate 73 BPM MUSE SYSTEM Atrial Rate 73 BPM MUSE SYSTEM P-R Interval 184 ms MUSE SYSTEM QRS Duration 122 ms MUSE SYSTEM Q-T Interval 428 ms MUSE SYSTEM QTC Calculated 471 ms MUSE SYSTEM (Bezet) Calculated P [place] 61 degrees MUSE SYSTEM Calculated R Mcclelland -46 degrees MUSE SYSTEM Calculated T Mcclelland 126 degrees MUSE SYSTEM INTERPRETATION Normal sinus rhythm MUSE SYSTEM Left anterior fascicular block Minimal voltage criteria for LVH, may be normal variant ( Arden product ) T wave abnormality, consider lateral ischemia Abnormal ECG When compared with ECG of 26-FEB-2022 06:06, No significant change was found Confirmed by Liz Davalos ([id number]) on 02/27/2022 8:12:34 A M Specimen Anatomical Collection Method Collection Time Receive d Time (Source) Location / / Volume Laterality 02/27/2022 6:12 AM 8:12 EDT AM EDT Oliver Murry APRN ECG ORDERABLES Performing Organization Address City/State/ZIP Code Phon e Number MUSE SYSTEM Differential, Automated (02/27/2022 3:37 AM EDT) P athologist Signature Neutrophils % 62.3 % [facility] LABORATORY Neutr Abs (ANC) 3.89 1.70 - [facility] 6.10 [facility] x10(3)/[facility] LABORATORY Lymphocytes % 21.8 % [facility] Lymphocytes Abs 1.4 0.9 - 3.2 [facility] x10(3)/[facility] LABORATORY Monocytes % 11.7 % [facility] Monocyte Abs 0.7 0.3 - 0.9 [facility] x10(3)/[facility] LABORATORY Eosinophils % 3.4 % [facility] Eosinophils Abs 0.2 0.0 - 0.4 [facility] x10(3)/[facility] LABORATORY Basophils % 0.6 % [facility] Basophils Abs 0.0 0.0 - 0.1 [facility] x10(3)/[facility] LABORATORY Immature Gran % 0.20 % [facility] Comment: Immature granulocytes(IG's)percentage an d absolute count will include metamyelocytes, myelocytes, and promyelo cytes. Blood smears from CBCs yielding IG's will be scanned manually for concor dance. If this scan disagrees with the automated IG or if promyelocytes are not ed, a manual differential will be performed. Julianna Gran Abs 0.01 0.00 - 0.04 x10(3)/[facility] Specimen Anatomical Collection Method Collection Time Receive d Time (Source) Location / / Volume Laterality Blood 02/27/2022 3:37 AM 4:01 EDT AM EDT Resulting Agency Comment Spec In Lab Oliver Murry APRN HEMATOLOGY ORDERABLES Performing Organization Address City/State/[place] [address] (ABNORMAL) Hemogram (02/27/2022 3:37 AM EDT) Analysis Performed At Patho logist Time Signature WBC 6.2 4.0 - 9.5 [facility] x10(3)/[facility] LABORATORY RBC 5.32 4.58 - [facility] 5.54 [facility] x10(6)/[facility] LABORATORY Hemoglobin 16.6 (H) 13.7 - [facility]/dL [facility] Hematocrit 48.5 40.5 - [facility] 48.5 % [facility] MCV 91.2 82.9 - [facility] 93.1 [facility] LABORATORY MCH 31.2 27.5 - [facility] [place] 32.1 pg [facility] MCHC 34.2 32.0 - [facility] 35.7 g/dL [facility] Platelets 178 145 - 357 [facility] x10(3)/[facility] LABORATORY RDWSD 42.0 36.0 - [facility] 45.0 [facility] RDWCV 12.5 11.4 - [facility] 13.8 % [facility] MPV 12.2 7.6 - 12.9 [place] [facility] [facility] nRBC % Auto 0.0 % [place] LABOR[facility] nRBC Abs Auto 0.000 0.000 - [place] 0.000 [facility] x10(3)/[facility] LABORATORY Specimen Anatomical Collection Method Collection Time Receive d Time (Source) Location / / Volume Laterality Blood 02/27/2022 3:37 AM 2 4:01 EDT AM EDT Resulting Agency Comment Spec In Lab Oliver Murry IVORY CARVER HEMATOLOGY ORDERABLES Performing Organization Address City/State/ZIP Code Phon e Number [address] Magnesium (02/27/2022 3:37 AM EDT) P athologist Signature Magnesium 0.80 0.69 - 1.07 [facility] mmol/L [facility] Specimen Anatomical Collection Method Collection Time Receive d Time (Source) Location / / Volume Laterality Blood 02/27/2022 3:37 AM 2 4:01 EDT AM EDT Resulting Agency Comment Spec In Lab Oliver Murry APRN CHEMISTRY ORDERABLES Performing Organization Address City/State/ZIP Code Phon e Number [address] (ABNORMAL) BMP w/fasting Glucose (02/27/2022 3:37 AM EDT) P athologist Signature Glucose 152 (H) 65 - 99 [place] Fasting mg/dL [facility] Comment: ?Fasting* Glucose Interpretive C riteria Normal ?65-99 mg/dL Impaired Fasting glucose ?100-125 mg/dL Consistent with Diabetes Mellitus ? >or= 126 mg/dL *Fasting is defined as no caloric intake for at least 8 hours In the absence of unequivocal hypergly cemia a plasma glucose value of >or= 126 mg/dL should be repeated on a subseq uent day. Diagnosis and Classification of Diabetes Mellitus, Position Statement from the [place] [employer]. ??Diabete s Care, Volume 33, Supplement 1, Sep 2009 BUN 17 10 - 20 mg/dL [facility] Creatinine 0.72 (L) 0.80 - 1.50 mg/dL [facility] Sodium 135 135 - 145 mmol/L [facility] Potassium 4.0 3.5 - 5.0 mmol/L [facility] Comment: Please note: ??Patients with WBC >100,00 0 may have falsely elevated Potassium levels. ??For accurate Potassium quantif ication in these patients send serum separator tube (gold top) for subsequent determinations. ??Contact the Clinical Chemistry Laboratory if there are any qu estions. Chloride 100 98 - 107 mmol/L [facility] CO2 23 22 - 31 mmol/L [facility] Anion Gap 12 5 - 15 mmol/L [facility] Calcium 9.2 8.5 - 10.5 mg/dL [facility] Estimated GFR 95 >=60 mL/min/1.73 m?? [facility] Comment: This patient? s estimated glomerular filtration rate (eGFR) is between 95 mL/min/1.73 m2 (patients with less muscl e mass per kg body weight) and 110 mL/min/1.73 m2 (patients with more muscl e mass per kg body weight) as determined by the CKD-EPI equation. Asse ssment of eGFR is not appropriate when creatinine concentrations are rapidly ch anging. For clinical decisions where creatinine clearance will affect therapy , a 24-hour urine creatinine clearance may be advised. Assignment of CKD stage 1 - 5 for patien ts with an eGFR near the transition point between stages may be based on cli nical assessment of muscle mass and symptoms in addition to eGFR. Specimen Anatomical Collection Method Collection Time Receive d Time (Source) Location / / Volume Laterality Blood 02/27/2022 3:37 AM 4:01 EDT AM EDT Resulting Agency Comment Spec In Lab Oliver Murry APRN CHEMISTRY ORDERABLES Performing Organization Address City/State/ZIP Code Phon e Number [place] [phone] POCT Glucose (02/26/2022 9:14 PM EDT) athologist Signature POC Glucose 152 65 - 199 [place] mg/dL [facility] Comment: Supplemental ranges: <140 mg/dL before meals <180 mg/dL all other times of the day Specimen Anatomical Collection Method Collection Time Receive d Time (Source) Location / / Volume Laterality Blood 02/26/2022 9:14 PM 2 9:14 EDT PM EDT Ben Schaeffer MD POINT OF CARE TEST ORDERABLE S Performing Organization Address City/State/ZIP Code Phon e Number [address] POCT Glucose (02/26/2022 4:42 PM EDT) athologist Signature POC Glucose 146 65 - 199 [place] mg/dL [facility] Comment: Supplemental ranges: <140 mg/dL before meals <180 mg/dL all other times of the day Specimen Anatomical Collection Method Collection Time Receive d Time (Source) Location / / Volume Laterality Blood 02/26/2022 4:42 PM 2 4:42 EDT PM EDT Ben Schaeffer MD POINT OF CARE TEST ORDERABLE S Performing Organization Address City/State/ZIP Code Phon e Number [place] [phone] [facility] LAB[address]ORY Drive POCT Glucose (02/26/2022 11:30 AM EDT) athologist Signature POC Glucose 178 65 - 199 [place] mg/dL [facility] Comment: Supplemental ranges: <140 mg/dL before meals <180 mg/dL all other times of the day Specimen Anatomical Collection Method Collection Time Receive d Time (Source) Location / / Volume Laterality Blood 02/26/2022 11:30 02/26/2022 AM EDT 11:30 AM EDT Ben Schaeffer MD POINT OF CARE TEST ORDERABLE S Performing Organization Address City/State/ZIP Code Phon e Number [facility] [place] [address] ECHOCARDIOGRAM LIMITED W CONTRAST W COLOR DOPP (02/26/2022 7:49 AM EDT) Anatomical Region Laterality Modality Cardiac Other Specimen (Source) Anatomical Collection Method Collection Time Re ceived Time Location / / Volume Laterality 02/26/2022 7:18 AM EDT Narrative 02/26/2022 9:46 AM EDT ?Judith ? [facility] ?[address] ? [place] [address] ?Voice: ?Fax: ? Echocardiogram Report Name: GILLIAN BRANCH ?Study Date: 02/26/2022 07:18 AM ?BP: 119/71 mmHg ?Patient Lo cation: ICCU^442^B : 1950 ?Height: 76 in ?Account: [id number] Age: 71 yrs ?Weight: 229 lb Gender: Male ? BSA : 2.3 m2 Ordering Physician: OLIVER MURRY Referring Physician: CHANNING GEE Performed By: ABBY Dejesus Reason For Study: NSTEMI Interpretation Summary Limited study to assess for LV thrombus. There is no evidence of LV thrombus on t his study. Left ventricular systolic function is se verely reduced. Left ventricular ejection fraction is estimated visually at 20%. Procedure Limited - 85669. Color Doppler - 28700. Image enhancement Definity was used for left ventricular opacification. Suboptim al quality. There is normal sinus rhythm. Left Ventricle A false tendon is identified. Left ventr icular systolic function is severely reduced. Left ventricular ejection fract ion is estimated visually at 20%. There is global hypokinesis with regional variati on. There is no left ventricular thrombus. Right Ventricle Right ventricular systolic function is n ormal. I ?WMSI = 2.25 ? % Normal = 0 ?Segments ??Size X - Cannot ?2 - ?4 - ?1-2 ? small Interpret ?1 - Normal ?? Hypokinetic 3 - Akinetic Dyskinetic ?? 3-5 ? moderate 5 - ? 6-14 ?large Aneurysmal ?15-16 ?? diffuse Procedure Note Eleazar Harrell MD - 02/26/2022Form atting of this note might be different from [place] [address] Voice: Fax: Echocardiogram Report Name: GILLIAN BRANCH Study Date: 02/26/2022 07:18 AM BP: 119/71 mmHg Patient Location: [place] [id number]^B : 1950 Height: 76 in Account: [id number] Age: 71 yrs Weight: 229 lb Gender: Male BSA: 2.3 m2 Ordering Physician: OLIVER MURRY Referring Physician: CHANNING GEE Performed By: ABBY Dejesus Reason For Study: NSTEMI Interpretation Summary Limited study to assess for LV thrombus. There is no evidence of LV thrombus on t his study. Left ventricular systolic function is se verely reduced. Left ventricular ejection fraction is estimated visually at 20%. Procedure Limited - 01701. Color Doppler - 79072. Image enhancement Definity was used for left ventricular opacification. Suboptim al quality. There is normal sinus rhythm. Left Ventricle A false tendon is identified. Left ventr icular systolic function is severely reduced. Left ventricular ejection fract ion is estimated visually at 20%. There is global hypokinesis with regional variati on. There is no left ventricular thrombus. Right Ventricle Right ventricular systolic function is n ormal. I WMSI = 2.25 % Normal = 0 Segments Size X - Cannot 2 - 4 - 1-2 small Interpret 1 - Normal Hypokinetic 3 - Devyn netic Dyskinetic 3-5 moderate 5 - 6-14 large Aneurysmal 15-16 diffuse Oliver Murry APRN ECHO ORDERABLES POCT Glucose (02/26/2022 7:23 AM EDT) P athologist Signature POC Glucose 147 65 - 199 [facility] mg/dL [facility] Comment: Supplemental ranges: <140 mg/dL before meals <180 mg/dL all other times of the day Specimen Anatomical Collection Method Collection Time Receive d Time (Source) Location / / Volume Laterality Blood 02/26/2022 7:23 AM 7:23 EDT AM EDT Bne Schaeffer MD POINT OF CARE TEST ORDERABLE S Performing Organization Address City/State/ZIP Code Phon e Number [place] [phone] LAB[address]ORY [address] EKG 12 Lead (02/26/2022 6:06 AM EDT) Component Value Ref Range Test Analysis Performed Pathologis t Method Time At Signature Ventricular rate 62 BPM MUSE SYSTEM Atrial Rate 62 BPM MUSE SYSTEM P-R Interval 184 ms MUSE SYSTEM QRS Duration 122 ms MUSE SYSTEM Q-T Interval 448 ms MUSE SYSTEM QTC Calculated 454 ms MUSE SYSTEM (Bezet) Calculated P M[place]le[place]and 52 degrees MUSE SYSTEM Calculated R [place]and -43 degrees MUSE SYSTEM Calculated T [place] 144 degrees MUSE SYSTEM INTERPRETATION Normal sinus rhythm MUSE SYSTEM Left axis deviation Left ventricular hypertrophy with QRS widening a nd repolarization abnormality Cannot rule out Septal infarct (cited on or before 21-Feb-20) Abnormal ECG When compared with ECG of 25-FEB-2022 06:18, No significant change was found Confirmed by MD Bernardo, Andie ([id number]) on 02/26/2022 5:18:36 PM Specimen Anatomical Collection Method Collection Time Receive d Time (Source) Location / / Volume Laterality 02/26/2022 6:06 AM 2 5:18 EDT PM EDT Oliver Murry IVORY CARVER ECG ORDERABLES Performing Organization Address City/State/ZIP Code Phon e Number MUSE SYSTEM Differential, Automated (02/26/2022 3:55 AM EDT) P athologist Signature Neutrophils % 54.3 % [facility] Neutr Abs (ANC) 2.61 1.70 - [facility] 6.10 [facility] x10(3)/[facility] LABORATORY Lymphocytes % 29.8 % [facility] Lymphocytes Abs 1.4 0.9 - 3.2 [facility] x10(3)/[facility] LABORATORY Monocytes % 11.3 % [facility] Monocyte Abs 0.5 0.3 - 0.9 [facility] x10(3)/[facility] LABORATORY Eosinophils % 4.0 % [facility] Eosinophils Abs 0.2 0.0 - 0.4 [facility] x10(3)/[facility] LABORATORY Basophils % 0.4 % [facility] Basophils Abs 0.0 0.0 - 0.1 [facility] x10(3)/[facility] LABORATORY Immature Gran % 0.20 % [facility] Comment: Immature granulocytes(IG's)percentage an d absolute count will include metamyelocytes, myelocytes, and promyelo cytes. Blood smears from CBCs yielding IG's will be scanned manually for concor dance. If this scan disagrees with the automated IG or if promyelocytes are not ed, a manual differential will be performed. Julianna Gran Abs 0.01 0.00 - 0.04 x10(3)/[facility] LABORATORY Specimen Anatomical Collection Method Collection Time Receive d Time (Source) Location / / Volume Laterality Blood 02/26/2022 3:55 AM 2 4:09 EDT AM EDT Resulting Agency Comment Spec In Lab Oliver Diane Jeanmarie IVORY CARVER HEMATOLOGY ORDERABLES Performing Organization Address City/State/ZIP [place] [address] Hemogram (02/26/2022 3:55 AM EDT) athologist Signature WBC 4.8 4.0 - 9.5 [facility] x10(3)/[facility] LABORATORY RBC 5.24 4.58 - [facility] 5.54 [facility] x10(6)/[facility] LABORATORY Hemoglobin 16.5 13.7 - [facility] 16.[facility] g/dL [facility] Hematocrit 48.1 40.5 - [facility] 48.5 % [facility] MCV 91.8 82.9 - [facility] 93.1 [facility] LABORATORY MCH 31.5 27.5 - [place] 32.1 pg [facility]ORATORY MCHC 34.3 32.0 - [facility] 35.7 g/dL [facility] Platelets 173 145 - 357 [facility] x10(3)/[facility] LABORATORY RDWSD 42.4 36.0 - [facility] 45.0 [facility] LABORATORY RDWCV 12.5 11.4 - [facility] 13.8 % [facility] LABORATORY MPV 12.2 7.6 - 12.9 [facility] LABORATORY nRBC % Auto 0.0 % [facility] LABORATORY nRBC Abs Auto 0.000 0.000 - [facility] 0.000 [facility] x10(3)/[facility] LABORATORY Specimen Anatomical Collection Method Collection Time Receive d Time (Source) Location / / Volume Laterality Blood 02/26/2022 3:55 AM 2 4:09 EDT AM EDT Resulting Agency Comment Spec In Lab Oliver Murry IVORY CARVER HEMATOLOGY ORDERABLES Performing Organization Address City/State/ZIP [place] [address] Magnesium (02/26/2022 3:55 AM EDT) athologist Signature Magnesium 0.79 0.69 - 1.07 [facility] mmol/L [facility]OR[facility]ORY Specimen Anatomical Collection Method Collection Time Receive d Time (Source) Location / / Volume Laterality Blood 02/26/2022 3:55 AM 2 4:09 EDT AM EDT Resulting Agency Comment Spec In Lab Oliver Murry REN[place] CHEMISTRY ORDERABLES Performing Organization Address City/State/ZIP [place] [address] (ABNORMAL) BMP w/fasting Glucose (02/26/2022 3:55 AM EDT) P athologist Signature Glucose 144 (H) 65 - 99 [facility] Fasting mg/dL [facility] Comment: ?Fasting* Glucose Interpretive C riteria Normal ?65-99 mg/dL Impaired Fasting glucose ?100-125 mg/dL Consistent with Diabetes Mellitus ? >or= 126 mg/dL *Fasting is defined as no caloric intake for at least 8 hours In the absence of unequivocal hypergly cemia a plasma glucose value of >or= 126 mg/dL should be repeated on a subseq uent day. Diagnosis and Classification of Diabetes Mellitus, Position Statement from the [place] [employer]. ??Diabete s Care, Volume 33, Supplement 1, Sep 2009 BUN 14 10 - 20 mg/dL [facility] Creatinine 0.75 (L) 0.80 - 1.50 mg/dL [facility] Sodium 137 135 - 145 mmol/L [facility] Potassium 4.0 3.5 - 5.0 mmol/L [facility] Comment: Please note: ??Patients with WBC >100,00 0 may have falsely elevated Potassium levels. ??For accurate Potassium quantif ication in these patients send serum separator tube (gold top) for subsequent determinations. ??Contact the Clinical Chemistry Laboratory if there are any qu estions. Chloride 104 98 - 107 mmol/L [facility] CO2 22 22 - 31 mmol/L [facility] Anion Gap 11 5 - 15 mmol/L [facility] Calcium 9.4 8.5 - 10.5 mg/dL [facility] Estimated GFR 94 >=60 mL/min/1.73 m?? [facility] Comment: This patient? s estimated glomerular filtration rate (eGFR) is between 94 mL/min/1.73 m2 (patients with less muscl e mass per kg body weight) and 108 mL/min/1.73 m2 (patients with more muscl e mass per kg body weight) as determined by the CKD-EPI equation. Asse ssment of eGFR is not appropriate when creatinine concentrations are rapidly ch anging. For clinical decisions where creatinine clearance will affect therapy , a 24-hour urine creatinine clearance may be advised. Assignment of CKD stage 1 - 5 for patien ts with an eGFR near the transition point between stages may be based on cli nical assessment of muscle mass and symptoms in addition to eGFR. Specimen Anatomical Collection Method Collection Time Receive d Time (Source) Location / / Volume Laterality Blood 02/26/2022 3:55 AM 2 4:09 EDT AM EDT Resulting Agency Comment Spec In Lab Oliver Murry APRN CHEMISTRY ORDERABLES Performing Organization Address City/State/ZIP Code Phon e Number [address] POCT Glucose (02/25/2022 9:05 PM EDT) athologist Signature POC Glucose 126 65 - 199 [facility] mg/dL [facility] Comment: Supplemental ranges: <140 mg/dL before meals <180 mg/dL all other times of the day Specimen Anatomical Collection Method Collection Time Receive d Time (Source) Location / / Volume Laterality Blood 02/25/2022 9:05 PM 2 9:05 EDT PM EDT Ben Schaeffer MD POINT OF CARE TEST ORDERABLE S Performing Organization Address City/State/ZIP Code Phon e Number [address] POCT Glucose (02/25/2022 3:21 PM EDT) athologist Signature POC Glucose 125 65 - 199 [facility] mg/dL [facility] Comment: Supplemental ranges: <140 mg/dL before meals <180 mg/dL all other times of the day Specimen Anatomical Collection Method Collection Time Receive d Time (Source) Location / / Volume Laterality Blood 02/25/2022 3:21 PM 2 3:21 EDT PM EDT Ben Schaeffer MD POINT OF CARE TEST ORDERABLE S Performing Organization Address City/State/[place] [address] POCT Glucose (02/25/2022 11:26 AM EDT) P athologist Signature POC Glucose 150 65 - 199 [place] mg/dL [facility] Comment: Supplemental ranges: <140 mg/dL before meals <180 mg/dL all other times of the day Specimen Anatomical Collection Method Collection Time Receive d Time (Source) Location / / Volume Laterality Blood 02/25/2022 11:26 02/25/2022 AM EDT 11:26 AM EDT Ben Schaeffer MD POINT OF CARE TEST ORDERABLE S Performing Organization Address City/[facility]/[place] [address] POCT Glucose (02/25/2022 7:21 AM EDT) P athologist Signature POC Glucose 144 65 - 199 [facility] mg/dL [facility] Comment: Supplemental ranges: <140 mg/dL before meals <180 mg/dL all other times of the day Specimen Anatomical Collection Method Collection Time Receive d Time (Source) Location / / Volume Laterality Blood 02/25/2022 7:21 AM 2 7:21 EDT AM EDT Ben Schaeffer MD POINT OF CARE TEST ORDERABLE S Performing Organization Address City/[facility]/[place] [address] EKG 12 Lead (02/25/2022 6:18 AM EDT) Component Value Ref Range Test Analysis Performed Pathologis t Method Time At Signature Ventricular rate 61 BPM MUSE SYSTEM Atrial Rate 61 BPM MUSE SYSTEM P-R Interval 184 ms MUSE SYSTEM QRS Duration 120 ms MUSE SYSTEM Q-T Interval 458 ms MUSE SYSTEM QTC Calculated 461 ms MUSE SYSTEM (Bezet) Calculated P [place] 38 degrees MUSE SYSTEM Calculated R [place] -44 degrees MUSE SYSTEM Calculated T [place] -150 degrees MUSE SYSTEM INTERPRETATION Normal sinus rhythm MUSE SYSTEM Left axis deviation Left ventricular hypertrophy with QRS widening ( R in aVL , Warren product ) Cannot rule out Septal infarct (cited on or before 21-Feb-20) Abnormal ECG When compared with ECG of 23-FEB-2022 06:04, (unconfirmed) No significant change was found Confirmed by MD ANALIA, BEN ([id number]) on 02/25/2022 11:51:31 A M Specimen Anatomical Collection Method Collection Time Receive d Time (Source) Location / / Volume Laterality 02/25/2022 6:18 AM 2 EDT 11:51 AM EDT Oliver Murry IVORY CARVER ECG ORDERABLES Performing Organization Address City/[facility]/ZIP Code Phon e Number MUSE SYSTEM POCT Glucose (02/24/2022 8:47 PM EDT) athologist Signature POC Glucose 155 65 - 199 [facility] Comment: Supplemental ranges: <140 mg/dL before meals <180 mg/dL all other times of the day Specimen Anatomical Collection Method Collection Time Receive d Time (Source) Location / / Volume Laterality Blood 02/24/2022 8:47 PM 2 8:47 EDT PM EDT Ben Schaeffer MD POINT OF CARE TEST ORDERABLE S Performing Organization Address City/[facility]/[place] [address] POCT Glucose (02/24/2022 4:06 PM EDT) athologist Signature POC Glucose 92 65 - 199 [place] mg/dL [facility] Comment: Supplemental ranges: <140 mg/dL before meals <180 mg/dL all other times of the day Specimen Anatomical Collection Method Collection Time Receive d Time (Source) Location / / Volume Laterality Blood 02/24/2022 4:06 PM 2 4:06 EDT PM EDT eBn Schaeffer MD POINT OF CARE TEST ORDERABLE S Performing Organization Address City/[facility]/[place] [address] POCT Glucose (02/24/2022 11:27 AM EDT) athologist Signature POC Glucose 186 65 - 199 [place] mg/dL [facility] Comment: Supplemental ranges: <140 mg/dL before meals <180 mg/dL all other times of the day Specimen Anatomical Collection Method Collection Time Receive d Time (Source) Location / / Volume Laterality Blood 02/24/2022 11:27 02/24/2022 AM EDT 11:27 AM EDT Ben Schaeffer MD POINT OF CARE TEST ORDERABLE S Performing Organization Address City/State/[place] [address] POCT Glucose (02/24/2022 8:49 AM EDT) athologist Signature POC Glucose 148 65 - 199 [facility] [place] mg/dL [facility] Comment: Supplemental ranges: <140 mg/dL before meals <180 mg/dL all other times of the day Specimen Anatomical Collection Method Collection Time Receive d Time (Source) Location / / Volume Laterality Blood 02/24/2022 8:49 AM 2 8:49 EDT AM EDT Ben Schaeffer MD POINT OF CARE TEST ORDERABLE S Performing Organization Address City/State/[place] [address] POCT Glucose (02/24/2022 7:29 AM EDT) athologist Signature POC Glucose 148 65 - 199 [place] mg/dL [facility] Comment: Supplemental ranges: <140 mg/dL before meals <180 mg/dL all other times of the day Specimen Anatomical Collection Method Collection Time Receive d Time (Source) Location / / Volume Laterality Blood 02/24/2022 7:29 AM 2 7:29 EDT AM EDT Ben Schaeffer MD POINT OF CARE TEST ORDERABLE S Performing Organization Address City/State/[place] [address] Differential, Automated (02/24/2022 3:15 AM EDT) athologist Signature Neutrophils % 63.5 % [facility] Neutr Abs (ANC) 4.04 1.70 - [facility] 6.10 [facility] x10(3)/[facility] LABORATORY Lymphocytes % 24.3 % [facility] Lymphocytes Abs 1.6 0.9 - 3.2 [facility] x10(3)/[facility] LABORATORY Monocytes % 8.9 % [facility] Monocyte Abs 0.6 0.3 - 0.9 [facility] x10(3)/[facility] LABORATORY Eosinophils % 2.8 % [facility] Eosinophils Abs 0.2 0.0 - 0.4 [facility] x10(3)/[facility] LABORATORY Basophils % 0.3 % [facility] Basophils Abs 0.0 0.0 - 0.1 [facility] x10(3)/[facility] LABORATORY Immature Gran % 0.20 % [facility] Comment: Immature granulocytes(IG's)percentage an d absolute count will include metamyelocytes, myelocytes, and promyelo cytes. Blood smears from CBCs yielding IG's will be scanned manually for concor dance. If this scan disagrees with the automated IG or if promyelocytes are not ed, a manual differential will be performed. Julianna Gran Abs 0.01 0.00 - 0.04 x10(3)/[facility] MAR Y [facility] LABORATORY Specimen Anatomical Collection Method Collection Time Receive d Time (Source) Location / / Volume Laterality Blood 02/24/2022 3:15 AM 3:39 EDT AM EDT Resulting Agency Comment Spec In Lab Tisha Coleman MD HEMATOLOGY ORDERABLES Performing Organization Address City/State/ZIP [place] [address] Hemogram (02/24/2022 3:15 AM EDT) athologist Signature WBC 6.4 4.0 - 9.5 [facility] x10(3)/[facility] LABORATORY RBC 5.15 4.58 - [facility] 5.54 [facility] x10(6)/[facility] LABORATORY Hemoglobin 16.0 13.7 - [facility] 16.5 g/dL [facility] Hematocrit 47.2 40.5 - [facility] 48.5 % [facility] MCV 91.7 82.9 - [facility] 93.1 [facility] LABORATORY MCH 31.1 27.5 - [place] 32.1 pg [facility] MCHC 33.9 32.0 - [facility] 35.7 g/dL [facility] Platelets 167 145 - 357 [facility] x10(3)/[facility] LABORATORY RDWSD 42.5 36.0 - [facility] 45.0 [facility] LABORATORY RDWCV 12.5 11.4 - [facility] 13.8 % [facility] MPV 12.2 7.6 - 12.9 [facility] LABORATORY nRBC % Auto 0.0 % [facility] nRBC Abs Auto 0.000 0.000 - [facility] 0.000 [facility] x10(3)/[facility] LABORATORY Specimen Anatomical Collection Method Collection Time Receive d Time (Source) Location / / Volume Laterality Blood 02/24/2022 3:15 AM 3:39 EDT AM EDT Resulting Agency Comment Spec In Lab Tisha Coleman MD HEMATOLOGY ORDERABLES Performing Organization Address City/State/ZIP [place] [address] Heparin (unfractionated) Level (02/24/2022 3:15 AM EDT) P athologist Signature Heparin UFH 0.41 IU/mL [facility] LABORATORY Comment: Heparin (anti-Xa) levels should be deter mined in a plasma sample that has been drawn 6 hours after a dose change to rizwana roximate steady-state for continuous heparin infusions. Indication specific Heparin (anti-Xa) le vels based on order set selection: Acute DVT or PE treatment: 0.3 ? 0.7 IU/mL Thrombosis Prevention (eg. atrial fibril lation, taco-procedural bridging, mechanical valves): 0.3 ? 0.7 IU/mL Acute Coronary Syndrome: 0.3 ? 0.7 IU/mL Stroke Indications: 0.3 ? 0.5 IU/mL Ultra-low intensity (select indications in cardiac surgery): 0.1 ? 0.3 IU/mL Specimen Anatomical Collection Method Collection Time Receive d Time (Source) Location / / Volume Laterality Blood 02/24/2022 3:15 AM 2 3:39 EDT AM EDT Resulting Agency Comment Spec In Lab Tisha Coleman MD HEMATOLOGY ORDERABLES Performing Organization Address City/State/ZIP [place] [address] (ABNORMAL) BMP w/fasting Glucose (02/24/2022 3:15 AM EDT) athologist Signature Glucose 155 (H) 65 - 99 [facility] Fasting mg/dL [facility] Comment: ?Fasting* Glucose Interpretive C riteria Normal ?65-99 mg/dL Impaired Fasting glucose ?100-125 mg/dL Consistent with Diabetes Mellitus ? >or= 126 mg/dL *Fasting is defined as no caloric intake for at least 8 hours In the absence of unequivocal hypergly cemia a plasma glucose value of >or= 126 mg/dL should be repeated on a subseq uent day. Diagnosis and Classification of Diabetes Mellitus, Position Statement from the [place] [employer]. ??Diabete s Care, Volume 33, Supplement 1, Sep 2009 BUN 14 10 - 20 mg/dL [facility] Creatinine 0.79 (L) 0.80 - 1.50 mg/dL [facility] Sodium 136 135 - 145 mmol/L [facility] Potassium 3.8 3.5 - 5.0 mmol/L [facility] Comment: Please note: ??Patients with WBC >100,00 0 may have falsely elevated Potassium levels. ??For accurate Potassium quantif ication in these patients send serum separator tube (gold top) for subsequent determinations. ??Contact the Clinical Chemistry Laboratory if there are any qu estions. Chloride 101 98 - 107 mmol/L [facility] CO2 24 22 - 31 mmol/L [facility] Anion Gap 11 5 - 15 mmol/L [facility] Calcium 9.2 8.5 - 10.5 mg/dL [facility] Estimated GFR 92 >=60 mL/min/1.73 m?? [facility] Comment: This patient? s estimated glomerular filtration rate (eGFR) is between 92 mL/min/1.73 m2 (patients with less muscl e mass per kg body weight) and 106 mL/min/1.73 m2 (patients with more muscl e mass per kg body weight) as determined by the CKD-EPI equation. Asse ssment of eGFR is not appropriate when creatinine concentrations are rapidly ch anging. For clinical decisions where creatinine clearance will affect therapy , a 24-hour urine creatinine clearance may be advised. Assignment of CKD stage 1 - 5 for patien ts with an eGFR near the transition point between stages may be based on cli nical assessment of muscle mass and symptoms in addition to eGFR. Specimen Anatomical Collection Method Collection Time Receive d Time (Source) Location / / Volume Laterality Blood 02/24/2022 3:15 AM 2 3:39 EDT AM EDT Resulting Agency Comment Spec In Lab Tisha Coleman MD CHEMISTRY ORDERABLES Performing Organization Address City/State/[place] [address] POCT Glucose (02/23/2022 8:48 PM EDT) P athologist Signature POC Glucose 144 65 - 199 [facility] mg/dL [facility] Comment: Supplemental ranges: <140 mg/dL before meals <180 mg/dL all other times of the day Specimen Anatomical Collection Method Collection Time Receive d Time (Source) Location / / Volume Laterality Blood 02/23/2022 8:48 PM 2 8:48 EDT PM EDT Ben Schaeffer MD POINT OF CARE TEST ORDERABLE S Performing Organization Address City/State/ZIP Code Phon e Number [address] POCT Glucose (02/23/2022 4:22 PM EDT) athologist Signature POC Glucose 139 65 - 199 [facility] Comment: Supplemental ranges: <140 mg/dL before meals <180 mg/dL all other times of the day Specimen Anatomical Collection Method Collection Time Receive d Time (Source) Location / / Volume Laterality Blood 02/23/2022 4:22 PM 4:22 EDT PM EDT Ben Schaeffer MD POINT OF CARE TEST ORDERABLE S Performing Organization Address City/State/ZIP Code Phon e Number [address] (ABNORMAL) POCT Glucose (02/23/2022 12:30 PM EDT) athologist Signature POC Glucose 235 (H) 65 - 199 [facility]dL [facility] Comment: Supplemental ranges: <140 mg/dL before meals <180 mg/dL all other times of the day Specimen Anatomical Collection Method Collection Time Receive d Time (Source) Location / / Volume Laterality Blood 02/23/2022 12:30 02/23/2022 PM EDT 12:30 PM EDT Ben Schaeffer MD POINT OF CARE TEST ORDERABLE S Performing Organization Address City/State/[place] [address] COVID-19 PCR (02/23/2022 11:29 AM EDT) [facility] Method Time Signature SARS-CoV-2 Not Detected Not Detected CARMINA RNA [facility] Comment: This result should be interpreted in com bination with the clinical observations, patient history and epidem iological information in making a final diagnosis. For testing of asymptomatic i ndividuals, assay performance characteristics and clinical utility hav e not been evaluated. Testing for SARS-CoV-2 (Severe acute respiratory syn drome coronavirus 2, formerly known as 2019 novel coronavirus or 2019-nCoV) to aid in the diagnosis of COVID-19 is performed using the Headroom S-CoV-2 Assay as authorized by the FDA Emergency Use Authorization (EUA). This EUA assay is intended for In-vitro Diagnostic (IVD) use with respiratory sp ecimens such as nasopharyngeal swabs collected from individuals during the ac [place] phase of infection. This assay is performed based on the instructions for use provided by [employer] and additional guidance provided by CDC and FDA. Testing is performed in the [facility] Laboratory within the Department of Pathology and Laboratory Medicine at [facility], certified under the Clinical Laboratory Improvement Amendments of 1988 (CLIA), 42 U.S.C. 263a, to perform high complexi ty tests. Assay performance has been verified according to clinical laborator y regulatory requirements for use with specimens collected from individuals kevin pected of COVID-19. Test results are provided above. A result of Not Detecte d indicates that the viral RNA target is not present above the limit of detect ion, but does not preclude SARS-CoV-2 infection. False negative results may oc cur if a specimen is improperly collected, transported or handled; if am plification inhibitors are present; or if inadequate numbers of viral particles are present in the specimen. When a diagnostic test is negative, the possibi lity of a false negative result should be considered in the context of a patien t's recent exposures and the presence of clinical signs and symptoms consisten t with COVID-19. A result of Detected indicates that RNA from SARS-CoV-2 was d etected and the patient is infected. As required or requested by public health [facility], positive specimens may be sent for additional testing. Positive an d negative predictive values for this test are highly dependent on disease pre valence. A result of Invalid indicates that neither the viral RNA tar gets nor the internal control target was detected. An invalid result suggests the presence of inhibitors. Recollection and re-testing is recommend ed in the case of an invalid result. CDC COVID-19 criteria for testing on hum an specimens and clinical management guidance information are available at th e CDC Coronavirus Disease 2019 (COVID-19) webpage under Information fo r Healthcare Professionals (https://www.cdc.gov/coronavirus/2019-nc ov/hcp/index.html) Additional information about this and ot her EUA tests can be found in provider and patient fact sheets at the following FDA website: https://www.fda.gov/medical-devices/rdnmfqvnmeg-poabble-0970-csnfb-61-chnaydfkq- gut-fznbntiuwamlig-nsnxkpo-devices/znspx-cisksxkuust-npwm SARS-Cov-2 RNA Source DOUBLE NEEDLE STITCHER Swab [facility] LAB[facility] Specimen (Source) Anatomical Collection Method Collection Time Re ceived Time Location / / Volume Laterality Nasopharyngeal Swab 02/23/2022 11:29 06/ AM EDT 8:12 PM EDT Comment: Symptoms->Surveillance Resulting Agency Comment Spec In Lab Ben Schaeffer MD MICROBIOLOGY - GENERAL ORDER ROSYE Performing Organization Address City/[facility]/ZIP Code Phon e Number [address] POCT Glucose (02/23/2022 7:48 AM EDT) P athologist Signature POC Glucose 190 65 - 199 [facility] mg/dL [facility] Comment: Supplemental ranges: <140 mg/dL before meals <180 mg/dL all other times of the day Specimen Anatomical Collection Method Collection Time Receive d Time (Source) Location / / Volume Laterality Blood 02/23/2022 7:48 AM 7:48 EDT AM EDT Ben Schaeffer MD POINT OF CARE TEST ORDERABLE S Performing Organization Address City/[facility]/[place] [address] EKG 12 Lead (02/23/2022 6:04 AM EDT) Component Value Ref Range Test Analysis Performed Pathologis t Method Time At Signature Ventricular rate 64 BPM MUSE SYSTEM Atrial Rate 64 BPM MUSE SYSTEM P-R Interval 186 ms MUSE SYSTEM QRS Duration 116 ms MUSE SYSTEM Q-T Interval 444 ms MUSE SYSTEM QTC Calculated 458 ms MUSE SYSTEM (Bezet) Calculated P Mcclelland 58 degrees MUSE SYSTEM Calculated R Mcclelland -42 degrees MUSE SYSTEM Calculated T Mcclelland -157 degrees MUSE SYSTEM INTERPRETATION Normal sinus rhythm MUSE SYSTEM Left axis deviation Minimal voltage criteria for LVH, may be normal variant ( Warren product ) T wave abnormality, consider lateral ischemia Abnormal ECG When compared with ECG of 20-FEB-2022 19:50, no significant change Confirmed by Liz Davalos ([id number]) on 02/26/2022 8:44:48 A M Specimen Anatomical Collection Method Collection Time Receive d Time (Source) Location / / Volume Laterality 02/23/2022 6:04 AM 2 8:44 EDT AM EDT Oliver Murry RENETTA ECG ORDERABLES Performing Organization Address City/State/ZIP Code Phon e Number MUSE SYSTEM Differential, Automated (02/23/2022 3:52 AM EDT) P athologist Signature Neutrophils % 53.9 % [facility] Neutr Abs (ANC) 2.62 1.70 - [facility] 6.10 [facility] x10(3)/[facility] LABORATORY Lymphocytes % 31.5 % [facility] Lymphocytes Abs 1.5 0.9 - 3.2 [facility] x10(3)/[facility] LABORATORY Monocytes % 10.1 % [facility] Monocyte Abs 0.5 0.3 - 0.9 [facility] x10(3)/[facility] LABORATORY Eosinophils % 3.7 % [facility] Eosinophils Abs 0.2 0.0 - 0.4 [facility] x10(3)/[facility] LABORATORY Basophils % 0.4 % [facility] Basophils Abs 0.0 0.0 - 0.1 [facility] x10(3)/[facility] LABORATORY Immature Gran % 0.40 % [facility] Comment: Immature granulocytes(IG's)percentage an d absolute count will include metamyelocytes, myelocytes, and promyelo cytes. Blood smears from CBCs yielding IG's will be scanned manually for concor dance. If this scan disagrees with the automated IG or if promyelocytes are not ed, a manual differential will be performed. Julianna Gran Abs 0.02 0.00 - 0.04 x10(3)/[facility] LABORATORY Specimen Anatomical Collection Method Collection Time Receive d Time (Source) Location / / Volume Laterality Blood 02/23/2022 3:52 AM 2 4:28 EDT AM EDT Resulting Agency Comment Spec In Lab Tisha Coleman MD HEMATOLOGY ORDERABLES Performing Organization Address City/State/ZIP [place] [address] (ABNORMAL) Hemogram (02/23/2022 3:52 AM EDT) Analysis Performed At Patho logist Time Signature WBC 4.9 4.0 - 9.5 [facility] x10(3)/[facility] LABORATORY RBC 5.15 4.58 - [place] 5.54 [facility] x10(6)/[facility] LABORATORY Hemoglobin 16.5 13.7 - [facility] 16.5 g/dL [facility] Hematocrit 48.2 40.5 - [facility] 48.5 % [facility] MCV 93.6 (H) 82.9 - [facility] [place] 93.1 [facility] LABORATORY MCH 32.0 27.5 - [facility] 32.1 pg [facility] MCHC 34.2 32.0 - [facility] 35.7 g/dL [facility] Platelets 156 145 - 357 [facility] x[facility](3[facility] LABORATORY RDWSD 43.8 36.0 - [place] 45.0 [facility] LABORATORY RDWCV 12.6 11.4 - [facility] 13.8 % [facility] MPV 12.2 7.6 - 12.9 [facility] LABORATORY nRBC % Auto 0.0 % [facility] nRBC Abs Auto 0.000 0.000 - [facility] 0.000 [facility] x10(3)/[facility] LABORATORY Specimen Anatomical Collection Method Collection Time Receive d Time (Source) Location / / Volume Laterality Blood 02/23/2022 3:52 AM 4:28 EDT AM EDT Resulting Agency Comment Spec In Lab Tisha Coleman MD HEMATOLOGY ORDERABLES Performing Organization Address City/State/ZIP [place] [address] Heparin (unfractionated) Level (02/23/2022 3:52 AM EDT) P athologist Signature Heparin UFH 0.54 IU/mL [facility] LABORATORY Comment: Heparin (anti-Xa) levels should be deter mined in a plasma sample that has been drawn 6 hours after a dose change to rizwana roximate steady-state for continuous heparin infusions. Indication specific Heparin (anti-Xa) le vels based on order set selection: Acute DVT or PE treatment: 0.3 ? 0.7 IU/mL Thrombosis Prevention (eg. atrial fibril lation, taco-procedural bridging, mechanical valves): 0.3 ? 0.7 IU/mL Acute Coronary Syndrome: 0.3 ? 0.7 IU/mL Stroke Indications: 0.3 ? 0.5 IU/mL Ultra-low intensity (select indications in cardiac surgery): 0.1 ? 0.3 IU/mL Specimen Anatomical Collection Method Collection Time Receive d Time (Source) Location / / Volume Laterality Blood 02/23/2022 3:52 AM 2 4:28 EDT AM EDT Resulting Agency Comment Spec In Lab Tisha Coleman MD HEMATOLOGY ORDERABLES Performing Organization Address City/State/[place] [address] (ABNORMAL) BMP w/fasting Glucose (02/23/2022 3:52 AM EDT) athologist Signature Glucose 172 (H) 65 - 99 [facility] Fasting mg/dL [facility] Comment: ?Fasting* Glucose Interpretive C riteria Normal ?65-99 mg/dL Impaired Fasting glucose ?100-125 mg/dL Consistent with Diabetes Mellitus ? >or= 126 mg/dL *Fasting is defined as no caloric intake for at least 8 hours In the absence of unequivocal hypergly cemia a plasma glucose value of >or= 126 mg/dL should be repeated on a subseq uent day. Diagnosis and Classification of Diabetes Mellitus, Position Statement from the [place] [employer]. ??Diabete s Care, Volume 33, Supplement 1, Sep 2009 BUN 11 10 - 20 mg/dL [facility] Creatinine 0.72 (L) 0.80 - 1.50 mg/dL [facility] Sodium 136 135 - 145 mmol/L [facility] Potassium 3.9 3.5 - 5.0 mmol/L [facility] Comment: Please note: ??Patients with WBC >100,00 0 may have falsely elevated Potassium levels. ??For accurate Potassium quantif ication in these patients send serum separator tube (gold top) for subsequent determinations. ??Contact the Clinical Chemistry Laboratory if there are any qu estions. Chloride 102 98 - 107 mmol/L [facility] CO2 23 22 - 31 mmol/L [facility] Anion Gap 11 5 - 15 mmol/L [facility] Calcium 9.4 8.5 - 10.5 mg/dL [facility] Estimated GFR 95 >=60 mL/min/1.73 m?? [facility] Comment: This patient? s estimated glomerular filtration rate (eGFR) is between 95 mL/min/1.73 m2 (patients with less muscl e mass per kg body weight) and 110 mL/min/1.73 m2 (patients with more muscl e mass per kg body weight) as determined by the CKD-EPI equation. Asse ssment of eGFR is not appropriate when creatinine concentrations are rapidly ch anging. For clinical decisions where creatinine clearance will affect therapy , a 24-hour urine creatinine clearance may be advised. Assignment of CKD stage 1 - 5 for patien ts with an eGFR near the transition point between stages may be based on cli nical assessment of muscle mass and symptoms in addition to eGFR. Specimen Anatomical Collection Method Collection Time Receive d Time (Source) Location / / Volume Laterality Blood 02/23/2022 3:52 AM 2 4:28 EDT AM EDT Resulting Agency Comment Spec In Lab Tisha Coleman MD CHEMISTRY ORDERABLES Performing Organization Address City/State/ZIP [place] [address] (ABNORMAL) POCT Glucose (02/22/2022 8:23 PM EDT) P athologist Signature POC Glucose 207 (H) 65 - 199 [facility] Comment: Supplemental ranges: <140 mg/dL before meals <180 mg/dL all other times of the day Specimen Anatomical Collection Method Collection Time Receive d Time (Source) Location / / Volume Laterality Blood 02/22/2022 8:23 PM 2 8:23 EDT PM EDT Elmer Fiore MD POINT OF CARE TEST ORDERABLE S Performing Organization Address City/State/[place] [address] (ABNORMAL) POCT Glucose (02/22/2022 4:18 PM EDT) athologist Signature POC Glucose 221 (H) 65 - 199 [facility] Comment: Supplemental ranges: <140 mg/dL before meals <180 mg/dL all other times of the day Specimen Anatomical Collection Method Collection Time Receive d Time (Source) Location / / Volume Laterality Blood 02/22/2022 4:18 PM 2 4:18 EDT PM EDT Elmer Fiore MD POINT OF CARE TEST ORDERABLE S Performing Organization Address City/State/[place] [address] Heparin (unfractionated) Level (02/22/2022 2:13 PM EDT) athologist Signature Heparin UFH 0.34 IU/mL [facility] LABORATORY Comment: Heparin (anti-Xa) levels should be deter mined in a plasma sample that has been drawn 6 hours after a dose change to rizwana roximate steady-state for continuous heparin infusions. Indication specific Heparin (anti-Xa) le vels based on order set selection: Acute DVT or PE treatment: 0.3 ? 0.7 IU/mL Thrombosis Prevention (eg. atrial fibril lation, taco-procedural bridging, mechanical valves): 0.3 ? 0.7 IU/mL Acute Coronary Syndrome: 0.3 ? 0.7 IU/mL Stroke Indications: 0.3 ? 0.5 IU/mL Ultra-low intensity (select indications in cardiac surgery): 0.1 ? 0.3 IU/mL Specimen Anatomical Collection Method Collection Time Receive d Time (Source) Location / / Volume Laterality Blood 02/22/2022 2:13 PM 2 2:18 EDT PM EDT Resulting Agency Comment Spec In Lab Tisha Coleman MD HEMATOLOGY ORDERABLES Performing Organization Address City/State/ZIP [place] [address] (ABNORMAL) MRI Cardiac Morphology Function wwo Contrast (02/22/2022 1:53 PM EDT) Anatomical Region Laterality Modality Magnetic Resonance Specimen (Source) Anatomical Location Collection Method / Collectio n Time Received Time / Laterality Volume Impressions 02/22/2022 3:35 PM EDT Severe dilatation of the left ventricle. Severely reduced left ventricular ejection fraction of 22%. Subendocardial delayed contrast enhancem ent in the basilar to mid anterior, anterolateral, and anteroseptal wall. En hancement of less than 50% of the myocardial wall thickness is consistent with persistent viability. Transmural enhancement at the distal ant erior wall and anterior aspect of the apex. Unlikely to be viable. UNEXPECTED FINDING of a 14 mm laminar th rombus in the anterior distal aspect of the left ventricle. Normal size of the right ventricle and n ormal right ventricular function. Thank you for letting us participate in the care of this patient. ??If you are a health care provider and have any questi ons regarding this report, please contact the number below. ??For patients who have questions please contact the health attending ambulatory care that requested your imaging first. ? 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 TECHNIQUE: Axial HASTE without contrast. Short and long axis cine steady-state fr ee precession without contrast. ?? Short and long axis rest perfusion and d elayed enhancement after intravenous administration of 42 cc of Dotarem Post-processing performed on an [employer] computer workstation. Patient's calculated body surface area: 2.4 m^2 FINDINGS: Chambers Left ventricle: The left ventricle is se verely dilated. Mild diffuse myocardial thinning along the mid to distal anterio r and anterolateral wall. There is a 14 mm long laminar intraventricular thrombu s along the distal anterior wall. Other chambers: Mild biatrial enlargemen t. Normal size of the right ventricle. Myocardium Non-contrast series: No abnormal myocard ial signal on non-contrast imaging. Post-contrast series: Normal left ventri cular myocardial enhancement during rest perfusion. Normal myocardial signal null ing on the postcontrast inversion recovery images. Subendocardial delayed enhancement at the basilar to mid anterior, anterolateral, and anterior se ptal wall. Transmural enhancement at the distal anterior wall and anterior aspect of the apex. Wall motion abnormalities: Severe global left ventricular hypokinesis. The septum, anterior wall, and apex are milad etic. Valves: No valvulopathy is identified. Pericardium: No pericardial thickening o r effusion. Aorta: Normal contour and caliber. Other thoracic great vessels: Normal con tour and caliber. Non-cardiovascular structures: Trace jluis ateral pleural effusion. QUANTITATIVE DATA: LEFT VENTRICLE: LV Mass: 153 g LV End-Diastolic Volume: 463 mL LV End-Systolic Volume: 361 mL Stroke Volume: 102 mL LV Ejection Fraction: 22% Cardiac Output: 7.4 L/min Anteroseptal Wall Thickness: 8 mm Posterolateral Wall Thickness: 6 mm End-Diastolic Dimension: 7.9 cm End-Systolic Dimension: 7.2 cm RIGHT VENTRICLE: RV End-Diastolic Volume: 203 mL RV End-Systolic Volume: 101 mL RV Stroke Volume: 102 mL RV Ejection Fraction: 50% Scar map: Abnormal delayed myocardial en hancement involves 18% of the left ventricular myocardium. Resulting Agency Comment Unexpected Finding Oliver Murry IVORY CARVER IMG MRI ORDERABLES (ABNORMAL) POCT Glucose (02/22/2022 11:26 AM EDT) athologist Signature POC Glucose 204 (H) 65 - 199 [facility] Comment: Supplemental ranges: <140 mg/dL before meals <180 mg/dL all other times of the day Specimen Anatomical Collection Method Collection Time Receive d Time (Source) Location / / Volume Laterality Blood 02/22/2022 11:26 02/22/2022 AM EDT 11:26 AM EDT Elmer Fiore MD POINT OF CARE TEST ORDERABLE S Performing Organization Address City/[facility]/ZIP Code Phon e Number [address] POCT Glucose (02/22/2022 7:33 AM EDT) athologist Signature POC Glucose 182 65 - 199 [facility] Comment: Supplemental ranges: <140 mg/dL before meals <180 mg/dL all other times of the day Specimen Anatomical Collection Method Collection Time Receive d Time (Source) Location / / Volume Laterality Blood 02/22/2022 7:33 AM 7:33 EDT AM EDT Elmer Fiore MD POINT OF CARE TEST ORDERABLE S Performing Organization Address City/[facility]/[place] [address] Heparin (unfractionated) Level (02/22/2022 6:33 AM EDT) athologist Signature Heparin UFH 0.36 IU/mL [facility] LABORATORY Comment: Heparin (anti-Xa) levels should be deter mined in a plasma sample that has been drawn 6 hours after a dose change to rizwana roximate steady-state for continuous heparin infusions. Indication specific Heparin (anti-Xa) le vels based on order set selection: Acute DVT or PE treatment: 0.3 ? 0.7 IU/mL Thrombosis Prevention (eg. atrial fibril lation, taco-procedural bridging, mechanical valves): 0.3 ? 0.7 IU/mL Acute Coronary Syndrome: 0.3 ? 0.7 IU/mL Stroke Indications: 0.3 ? 0.5 IU/mL Ultra-low intensity (select indications in cardiac surgery): 0.1 ? 0.3 IU/mL Specimen Anatomical Collection Method Collection Time Receive d Time (Source) Location / / Volume Laterality Blood 02/22/2022 6:33 AM 6:49 EDT AM EDT Resulting Agency Comment Spec In Lab Tisha Coleman MD HEMATOLOGY ORDERABLES Performing Organization Address City/State/ZIP [place] [address] Differential, Automated (02/22/2022 6:33 AM EDT) athologist Signature Neutrophils % 57.8 % [facility] LABORATORY Neutr Abs (ANC) 3.35 1.70 - [facility] 6.10 [facility] x10(3)[facility] LABORATORY Lymphocytes % 25.5 % [facility] LABORATORY Lymphocytes Abs 1.5 0.9 - 3.2 [facility] x10(3)/[facility] LABORATORY Monocytes % 10.2 % [facility] LABORATORY Monocyte Abs 0.6 0.3 - 0.9 [facility] x10(3)[facility] LABORATORY Eosinophils % 6.0 % [facility] LABORATORY Eosinophils Abs 0.4 0.0 - 0.4 [facility] x10(3)/[facility] LABORATORY Basophils % 0.3 % [facility] LABORATORY Basophils Abs 0.0 0.0 - 0.1 [facility] x10(3)/[facility] LABORATORY Immature Gran % 0.20 % [facility] LABORATORY Comment: Immature granulocytes(IG's)percentage an d absolute count will include metamyelocytes, myelocytes, and promyelo cytes. Blood smears from CBCs yielding IG's will be scanned manually for concor dance. If this scan disagrees with the automated IG or if promyelocytes are not ed, a manual differential will be performed. Julianna Gran Abs 0.01 0.00 - 0.04 x10(3)/[facility] LABORATORY Specimen Anatomical Collection Method Collection Time Receive d Time (Source) Location / / Volume Laterality Blood 02/22/2022 6:33 AM 2 6:49 EDT AM EDT Resulting Agency Comment Spec In Lab Tisha Coleman MD HEMATOLOGY ORDERABLES Performing Organization Address City/State/[place] [address] Hemogram (02/22/2022 6:33 AM EDT) P athologist Signature WBC 5.8 4.0 - 9.5 [facility] x[facility](3)/[facility] LABORATORY RBC 5.12 4.58 - [place] 5.54 [facility] x10(6)/[facility] LABORATORY Hemoglobin 16.1 13.7 - [facility] 16.5 g/dL [facility] LABORATORY Hematocrit 47.2 40.5 - [facility] 48.5 % [facility]AT[facility] MCV 92.2 82.9 - [facility] 93.1 [facility] LABORATORY MCH 31.4 27.5 - [facility] 32.1 pg [facility] LABORATORY MCHC 34.1 32.0 - [place] 35.7 g/dL [facility] LABORATORY Platelets 169 145 - 357 [facility] x10(3)/[facility] LABORATORY RDWSD 42.8 36.0 - [place] 45.0 [facility] LABORATORY RDWCV 12.5 11.4 - [place] 13.8 % [facility] LABORATORY MPV 12.0 7.6 - 12.9 [facility] LABORATORY nRBC % Auto 0.0 % [facility] LABORATORY nRBC Abs Auto 0.000 0.000 - [facility] ROC[facility] 0.000 [facility] x10(3)/[facility] LABORATORY Specimen Anatomical Collection Method Collection Time Receive d Time (Source) Location / / Volume Laterality Blood 02/22/2022 6:33 AM 2 6:49 EDT AM EDT Resulting Agency Comment Spec In Lab Tisha Coleman MD HEMATOLOGY ORDERABLES Performing Organization Address City/State/[place] [address] (ABNORMAL) BMP w/fasting Glucose (02/22/2022 6:33 AM EDT) athologist Signature Glucose 186 (H) 65 - 99 [facility] Fasting mg/dL [facility] LABORATORY Comment: ?Fasting* Glucose Interpretive C riteria Normal ?65-99 mg/dL Impaired Fasting glucose ?100-125 mg/dL Consistent with Diabetes Mellitus ? >or= 126 mg/dL *Fasting is defined as no caloric intake for at least 8 hours In the absence of unequivocal hypergly cemia a plasma glucose value of >or= 126 mg/dL should be repeated on a subseq uent day. Diagnosis and Classification of Diabetes Mellitus, Position Statement from the [place] [employer]. ??Diabete s Care, Volume 33, Supplement 1, Sep 2009 BUN 13 10 - 20 mg/dL [facility] LABORATORY Creatinine 0.74 (L) 0.80 - 1.50 mg/dL [facility] LABORATORY Sodium 136 135 - 145 mmol/L [facility] LABOR[facility] Potassium 4.4 3.5 - 5.0 mmol/L [facility] Comment: Please note: ??Patients with WBC >100,00 0 may have falsely elevated Potassium levels. ??For accurate Potassium quantif ication in these patients send serum separator tube (gold top) for subsequent determinations. ??Contact the Clinical Chemistry Laboratory if there are any qu estions. Chloride 102 98 - 107 mmol/L [facility] LABORATORY CO2 23 22 - 31 mmol/L [facility] LABORATORY Anion Gap 11 5 - 15 mmol/L [facility] Calcium 9.2 8.5 - 10.5 mg/dL [facility] Estimated GFR 94 >=60 mL/min/1.73 m?? [facility] LAB[facility] Comment: This patient? s estimated glomerular filtration rate (eGFR) is between 94 mL/min/1.73 m2 (patients with less muscl e mass per kg body weight) and 109 mL/min/1.73 m2 (patients with more muscl e mass per kg body weight) as determined by the CKD-EPI equation. Asse ssment of eGFR is not appropriate when creatinine concentrations are rapidly ch anging. For clinical decisions where creatinine clearance will affect therapy , a 24-hour urine creatinine clearance may be advised. Assignment of CKD stage 1 - 5 for patien ts with an eGFR near the transition point between stages may be based on cli nical assessment of muscle mass and symptoms in addition to eGFR. Specimen Anatomical Collection Method Collection Time Receive d Time (Source) Location / / Volume Laterality Blood 02/22/2022 6:33 AM 2 6:49 EDT AM EDT Resulting Agency Comment Spec In Lab Tisha Coleman MD CHEMISTRY ORDERABLES Performing Organization Address City/[facility]/[place] [address] (ABNORMAL) POCT Glucose (02/21/2022 8:15 PM EDT) P athologist Signature POC Glucose 236 (H) 65 - 199 [facility] mg/dL [facility] LABOR[facility]ORY Comment: Supplemental ranges: <140 mg/dL before meals <180 mg/dL all other times of the day Specimen Anatomical Collection Method Collection Time Receive d Time (Source) Location / / Volume Laterality Blood 02/21/2022 8:15 PM 2 8:15 EDT PM EDT Elmer Fiore MD POINT OF CARE TEST ORDERABLE S Performing Organization Address City/[facility]/[place] [address] CARDIAC CATHETERIZATION (02/21/2022 4:55 PM EDT) Anatomical Region Laterality Modality Other Specimen (Source) Anatomical Location Collection Method / Collectio n Time Received Time / Laterality Volume Narrative 02/21/2022 5:19 PM EDT ?[facility] ? Cardiac Cathete rization/Intervention Report ? Patient Name: Helder, Gillian ? Procedure Date: 02/21/2022 ? A #: [id number] ? Primary Physician: Jose Luis Lopez ? Case #: [id number] ? File Name: [id number] ? Catheterization Order Number: [id number] ? [facility] ? Final Report [place], [place] ? Patient Name: ? Gillian Helder ? ID#: ?[id number] ? : ?1950 ? Procedure Date: ? February 21, 2022 ? Case #: ? [id number] ? Room: ? 1 ? Case Physician: ? Jose Luis jordan, M.D. ? Start: ?16:37 ?Fellow: ? Vincent E G acad, M.D. ?Admission: ??02/20/2022 ? Discharge: ??02/28/2022 ? Referring Physician: ??Channing Gee M.D. ? Procedures: ?* Coronary Angiography ?* Left Heart Catheterization ? History ?Gillian Branch is a 71 year old man . He has hypertension. The patient's ?smoking status is Never. He has diabetes managed with oral medication. ?The patient is status post an a cute non-ST elevation myocardial ?infarction. He has a history of CHF. The CHF is NYHA Functional Class ?III, is newly diagnosed and is classified as Systolic. Prior to the ?initiation of this procedure, t he patient was designated as ASA Class ?III. The CSHA clinical frailty scale is 4: Vulnerable. ? Diagnostic Tests: ?Prior Coronary Angiography: ? LV ejection fraction wit hin 6 months is 17%. ?Electrocardiography: ? EKG was assessed by ECG. EKG was Abnormal. EKG showed other ? abnormality. ?Medications Prior to Procedure: ? Angiotensin Converting E nzyme Inhibitor, Aspirin, Beta Ciara and ? Statin. ? Indications for Diagnostic Cath: ?The priority of the diagnostic procedure was Urgent. The indication for ?the labor and delivery nurse visit is ACS less than or equal to 24 hrs. Chest pain ?symptom assessment was: Atypica l Angina. ? Technique: ?A 6Fr sheath was inserted in th e right radial artery utilizing the ?Seldinger technique. The left c oronary artery was injected utilizing a ?5Fr TIG 4.0 catheter. A 5Fr TIG 4.0 catheter was used to inject the right ?coronary artery. Left ventricul ar pressure was performed utilizing a 5Fr ?TIG 4.0 catheter. 3,500 units o f heparin were administered. A total of ?100cc of None were opened, 41cc of None were administered and 59cc of ?None were wasted. Radiation: Fl uoro time was 1.7 minutes, dose area ?product was 35,000 mGYcm2 and a ir kerma was 529 mGY. See the case log for ?additional details. ?The patient received the follow ing medications prior to and during the ?procedure: ? Unfractionated Heparin. ? Hemodynamics: ?Left Heart Pressures ? Resting: ? Syst D iast ? EDP ?a ?v ? m ?Ao 104 ?? 70 ?83 ?LV 112 ? 15 ? Coronary Angiography: ?Dominance: Right ?Left Main ? There was mild diffuse ( <=25% stenosis) disease of the entire vessel ? segment of the left main artery. ?Left Anterior Descending ? There was a single discr ete total occlusion of the ostial segment of ? the left anterior descen ding artery (LAD). ??Distal flow was via ? collaterals from the RCA . ?Left Circumflex ? There was mild diffuse ( <=25% stenosis) disease of the entire vessel ? segment of the left circ umflex artery (LCX). ? There was a 95% single d iscrete stenosis of the ostial segment of ? the first obtuse margina l branch (OM1) of the LCX. ? There was a 95% single d iscrete stenosis of the ostial segment of ? the lateral branch of th e first obtuse marginal branch (OM1 Lat) of ? the LCX. ?Right Coronary Artery ? There was mild diffuse ( <=25% stenosis) disease of the entire vessel ? segment of the right cor onary artery (RCA). ? Vascular Access: ?Vascular Access Management: ? Mechanical Compression o f the right radial artery access site was ? performed. ? Conclusions: ?* Two vessel coronary artery di sease (LAD and LCX) ?* Consider viability testing an d cardiac surgery consult. Anatomy is ?favorable for PAVING CONTRACTOR PCI. ? Complications/Events: ?The patient had no complication s during these procedures. ?The attending physician was presen t for the entire procedure. ?Dr. Jose Luis Lopez M.D. was pre sent during the moderate sedation ?intraservice time as documented by the sedation nurse. ??Case time = 00:13. ?Dr. Jose Luis Lopez M.D. perform ed the coronary angiography and left ?heart catheterization. ? Jose Luis S Jessica, M.D. ? Electronically Signed by: Jose Luis So in, M.D. ? Report Finalized: 02/21/2022 ??17:12 ? Report Last Ammended: 03/29/2022 ??14:12 ? Procedure Note Jose Luis Lopez MD - 03/29/2022Format ting of this note might be different from the original. [facility] Cardiac Catheterization/Intervention Re port Patient Name: Gillian Branch Procedure Date: 02/21/2022 A #: [id number] Primary Physician: Jose Luis Lopez Case #: [id number] File Name: [id number] Catheterization Order Number: [id number] [facility] Final Report [place], [place] Patient Name: Gillian Branch ID#: [id number] : 1950 Procedure Date: February 21, 2022 Case #: [id number] Room: 1 Case Physician: Aleyda Bolden tart: 16:37 Fellow: Rudy Bush M.D. Admission : 02/20/2022 Discharge: 02/28/2022 Referring Physician: Kiara Escamilla Procedures: * Coronary Angiography * Left Heart Catheterization History Gillian Branch is a 71 year old man. He has hypertension. The patient's smoking status is Never. He has diabete s managed with oral medication. The patient is status post an acute non -ST elevation myocardial infarction. He has a history of CHF. Th e CHF is NYHA Functional Class III, is newly diagnosed and is classifi ed as Systolic. Prior to the initiation of this procedure, the patie nt was designated as ASA Class III. The [facility] clinical frailty scale is 4: Vulnerable. Diagnostic Tests: Prior Coronary Angiography: LV ejection fraction within 6 months is 17%. Electrocardiography: EKG was assessed by ECG. EKG was Abnorm al. EKG showed other abnormality. Medications Prior to Procedure: Angiotensin Converting Enzyme Inhibitor , Aspirin, Beta Ciara and Statin. Indications for Diagnostic Cath: The priority of the diagnostic procedur e was Urgent. The indication for the labor and delivery nurse visit is ACS less than or equal to 24 hrs. Chest pain symptom assessment was: Atypical Angina . Technique: A 6Fr sheath was inserted in the right radial artery utilizing the Seldinger technique. The left coronary artery was injected utilizing a 5Fr TIG 4.0 catheter. A 5Fr TIG 4.0 cat heter was used to inject the right coronary artery. Left ventricular press ure was performed utilizing a 5Fr TIG 4.0 catheter. 3,500 units of hepari n were administered. A total of 100cc of None were opened, 41cc of None were administered and 59cc of None were wasted. Radiation: Fluoro art e was 1.7 minutes, dose area product was 35,000 mGYcm2 and air kerma was 529 mGY. See the case log for additional details. The patient received the following medi cations prior to and during the procedure: Unfractionated Heparin. Hemodynamics: Left Heart Pressures Resting: Syst Diast EDP a v m Ao 104 70 83 LV 112 15 Coronary Angiography: Dominance: Right Left Main There was mild diffuse (<=25% stenosis) disease of the entire vessel segment of the left main artery. Left Anterior Descending There was a single discrete total occlu silvino of the ostial segment of the left anterior descending artery (LA D). Distal flow was via collaterals from the RCA. Left Circumflex There was mild diffuse (<=25% stenosis) disease of the entire vessel segment of the left circumflex artery ( LCX). There was a 95% single discrete stenosi s of the ostial segment of the first obtuse marginal branch (OM1) of the LCX. There was a 95% single discrete stenosi s of the ostial segment of the lateral branch of the first obtuse marginal branch (OM1 Lat) of the LCX. Right Coronary Artery There was mild diffuse (<=25% stenosis) disease of the entire vessel segment of the right coronary artery (R CA). Vascular Access: Vascular Access Management: Mechanical Compression of the right rad ial artery access site was performed. Conclusions: * Two vessel coronary artery disease (L AD and LCX) * Consider viability testing and cardia c surgery consult. Anatomy is favorable for PAVING CONTRACTOR PCI. Complications/Events: The patient had no complications during these procedures. The attending physician was present for the entire procedure. Dr. Jose Luis Lopez M.D. was present during the moderate sedation intraservice time as documented by the sedation nurse. Case time = 00:13. Dr. Jose Luis Lopez M.D. performed th e coronary angiography and left heart catheterization. Jose Luis Lopez M.D. Electronically Signed by: Jose Luis velázquez M.D. Report Finalized: 02/21/2022 17:12 Report Last Ammended: 03/29/2022 14:12 Jose Luis Lopez MD CARDIAC CATH ORDERABLES POCT Glucose (02/21/2022 4:10 PM EDT) athologist Signature POC Glucose 149 65 - 199 [facility] mg/dL [facility] Comment: Supplemental ranges: <140 mg/dL before meals <180 mg/dL all other times of the day Specimen Anatomical Collection Method Collection Time Receive d Time (Source) Location / / Volume Laterality Blood 02/21/2022 4:10 PM 4:10 EDT PM EDT Elmer Fiore MD POINT OF CARE TEST ORDERABLE S Performing Organization Address City/State/[place] [address] POCT Glucose (02/21/2022 11:35 AM EDT) athologist Signature POC Glucose 178 65 - 199 [facility] mg/dL [facility] Comment: Supplemental ranges: <140 mg/dL before meals <180 mg/dL all other times of the day Specimen Anatomical Collection Method Collection Time Receive d Time (Source) Location / / Volume Laterality Blood 02/21/2022 11:35 02/21/2022 AM EDT 11:35 AM EDT Elmer Fiore MD POINT OF CARE TEST ORDERABLE S Performing Organization Address City/[facility]/ZIP [place] [address] Heparin (unfractionated) Level (02/21/2022 9:04 AM EDT) athologist Signature Heparin UFH 0.51 IU/mL [facility] Comment: Heparin (anti-Xa) levels should be deter mined in a plasma sample that has been drawn 6 hours after a dose change to rizwana roximate steady-state for continuous heparin infusions. Indication specific Heparin (anti-Xa) le vels based on order set selection: Acute DVT or PE treatment: 0.3 ? 0.7 IU/mL Thrombosis Prevention (eg. atrial fibril lation, taco-procedural bridging, mechanical valves): 0.3 ? 0.7 IU/mL Acute Coronary Syndrome: 0.3 ? 0.7 IU/mL Stroke Indications: 0.3 ? 0.5 IU/mL Ultra-low intensity (select indications in cardiac surgery): 0.1 ? 0.3 IU/mL Specimen Anatomical Collection Method Collection Time Receive d Time (Source) Location / / Volume Laterality Blood 02/21/2022 9:04 AM 9:23 EDT AM EDT Resulting Agency Comment Spec In Lab Tisha Coleman MD HEMATOLOGY ORDERABLES Performing Organization Address City/[facility]/ZIP [place] [address] (ABNORMAL) Troponin (02/21/2022 9:04 AM EDT) athologist Signature Troponin-T 0.01 (H) 0.00 - [facility] 0.00 ng/mL [facility] Comment: The 99th percentile for Troponin T is le ss than 0.01 ng/mL, any detectable cTnT concentration using this assay should be considered elevated. According to the third universal definit ion of myocardial infarction the following criteria with a clinical prese ntation consistent with acute myocardial ischemia meets the diagnosis for a myocardial infarction (NC). Detection of a rise and/or fall of cTnT, with at least one value greater than the 99th percentile (> or = 0.01) and wi th at least one of the following ?? Symptoms of ischemia ?? New or presumed new significant ST-se gment-T wave (ST-T) changes or new left bundle branch block (LBBB) ?? Development of pathologic Q waves in the ECG ?? Imaging evidence of new loss of viabl e myocardium or new regional wall motion abnormality ?? Identification of an intracoronary th rombus by angiography or autopsy Samples for cTnT testing should be obtai yeimi serially upon first assessment and again 3 to 6 hours later. If the clinica l suspicion is high and previous samples have been negative an additional sample may be indicated. Reference: Third [place] Definition of Myocardial Infarction. Journal of the [place] [employer] 2012;60:1581-98 Specimen Anatomical Collection Method Collection Time Receive d Time (Source) Location / / Volume Laterality Blood 02/21/2022 9:04 AM 9:23 EDT AM EDT Resulting Agency Comment Spec In Lab Tisha Coleman MD CHEMISTRY ORDERABLES Performing Organization Address City/State/ZIP Code Phon e Number [place] [phone] ECHOCARDIOGRAM COMPLETE W CONTRAST (02/21/2022 8:16 AM EDT) P athologist Signature EF 17 [facility] Anatomical Region Laterality Modality Cardiac Other Specimen (Source) Anatomical Collection Method Collection Time Re ceived Time Location / / Volume Laterality 02/21/2022 7:12 AM EDT Narrative 02/21/2022 8:52 AM EDT [facility] ?[address] ? [place] [address] ?Voice: ?Fax: ? Echocardiogram Report Name: GILLIAN BRANCH ? Study Date: 02/21/2022 07:12 AMBP: 124/76 mmHg ? Patient Location: ICCU^442^B : 1950 ? Height: 193 cm ? Account: [id number] Age: 71 yrs ? Weight: 106 kg Gender: Male ?BSA: 2.4 m2 Ordering Physician: TISHA COLEMAN Referring Physician: CHANNING GEE Performed By: Grace Cabrera RDCS Reason For Study: Non-ST elevation myoca rdial infarction (NSTEMI) Interpreting Fellow: Kannan Medina. Exam Location: [facility]. Interpretation Summary 1. The left ventricle is severely dilate d with mildly decreased wall thickness. Systolic function is severely reduced wi th an EF of 17 % by Renae's biplane method. There are wall motion abnormalit ies as demonstrated in the attached PDF. 2. The right ventricle is normal in size and global systolic function. The estimated pulmonary artery systolic pres sure could not be assessed 3. Right atrium is mildly dilated. 4. There is no hemodynamically significa nt valvular disease. 5. See remainder of report for additiona l findings. There is no prior study for comparison. Procedure Complete-99444. Image enhancement Optiso n was used for left ventricular opacification. Suboptimal quality. Left Ventricle Left ventricle is severely dilated. Wall thickness is mildly increased. Left ventricular systolic function is severel y reduced. The left ventricular ejection fraction is 17% by Renae's biplane. Le ft ventricular ejection fraction is estimated visually at 20%. There is no l eft ventricular thrombus. Right Ventricle The right ventricle is of normal size. R ight ventricular systolic function is normal. Left Atrium The left atrium is normal. No abnormalit y of the interatrial septum is identified. Right Atrium The right atrium is mildly dilated. Aortic Valve The aortic valve is mildly thickened. Th e aortic valve is mildly calcified. The aortic valve is probably trileaflet. The re is no aortic stenosis. There is no aortic regurgitation. Mitral Valve Mild thickening of the mitral leaflets. There is no mitral stenosis. There is trace mitral regurgitation. Tricuspid Valve The tricuspid valve is structurally norm al. There is trace tricuspid regurgitation. Pulmonic Valve The pulmonic valve appears to be structu rally normal. There is no valvular pulmonic stenosis. There is trace pulmon ic valve regurgitation. Great Arteries The aortic root is of normal size. No ab normalities are identified. The ascending aorta is not well visualized. The pulmon fernanda artery is not well visualized. Venous Inferior vena cava is normal in size. In ferior vena cava collapse greater than 50% with respiration. Pericardium/Pleural There is no pericardial effusion. Hemodynamics Pulmonary artery hypertension could not be assessed due to inadequate tricuspid regurgitation jet. The estimated right a trial pressure is 3mmHg. Ejection Fraction ?2D Measurem ents ? Volumes LV Biplane EF: 17.0 % ? IVSd: 1.4 cm ? LA Volume Index: ?L VIDd: 5.4 cm ?L VIDs: 4.3 cm ?28.2 ml/m2 ?L VPWd: 1.4 cm ?EDV Biplane: 306.9 ml ?L V mass(C)d: 325.7 grams ? EDV Biplane Index: 129.7 ? ESV Biplane: 254.8 ml ?L V mass(C)dI: 137.6 grams/m2 ?? ESV Biplane Index: 107.6 ?A o root diam: 3.6 cm ? SV(LVOT): 76.2 ml ?A o root diam index: 1.5 ?LV Stroke Volume: 76.2 ml ?L VOT diam: 2.3 cm ?SI(LVOT): 32.2 ml/m2 ?T APSE_phl: 2.0 cm Doppler Ao V2 VTI: 24.0 cm Ao valve max: 6.9 mmHg Ao valve mean: 4.1 mmHg MV E max elian: 62.9 cm/sec MV A max elian: 93.9 cm/sec MV E/A: 0.67 MV dec time: 0.17 sec Lat Peak E' Elian: 5.0 cm/sec E/ e' (lat): 12.5 Med Peak E' Elian: 5.3 cm/sec E/e' (med): 11.9 E/e' Average: 12.2 KAYDEN(I,D): 3.2 cm2 Dimensionless index Aov: 0.77 I ?WMSI = 2.25 ? % Normal = 0 ?Segments ??Size X - Cannot ?? 1 - Normal ?? 2 - ? 3 - Akinetic 4 - ?1-2 ? small Interpret ? Hypoki netic ?Dyskinetic ?? 3-5 ? moderate 5 - ? 6-14 ?large Aneurysmal ?15-16 ?? diffuse Procedure Note Bj Boyce MD - 02/21/2022Panchito monaco of this note might be different [place] [address] Voice: Fax: Echocardiogram Report Name: GILLIAN BRANCH Study Date: 02/21/2022 07:12 AMBP: 124/76 mmHg Patient Location: [facility] 42^B : 1950 Height: 193 cm Account: [id number] Age: 71 yrs Weight: 106 kg Gender: Male BSA: 2.4 m2 Ordering Physician: TISHA COLEMAN Referring Physician: CHANNING GEE Performed By: Grace Cabrera RDCS Reason For Study: Non-ST elevation myoca rdial infarction (NSTEMI) Interpreting Fellow: Kannan Medina. Exam Location: [facility]. Interpretation Summary 1. The left ventricle is severely dilate d with mildly decreased wall thickness. Systolic function is severely reduced wi th an EF of 17 % by Renae's biplane method. There are wall motion abnormalit ies as demonstrated in the attached PDF. 2. The right ventricle is normal in size and global systolic function. The estimated pulmonary artery systolic pres sure could not be assessed 3. Right atrium is mildly dilated. 4. There is no hemodynamically significa nt valvular disease. 5. See remainder of report for additiona l findings. There is no prior study for comparison. Procedure Complete-[id number]. Image enhancement Optiso n was used for left ventricular opacification. Suboptimal quality. Left Ventricle Left ventricle is severely dilated. Wall thickness is mildly increased. Left ventricular systolic function is severel y reduced. The left ventricular ejection fraction is 17% by Renae's biplane. Le ft ventricular ejection fraction is estimated visually at 20%. There is no l eft ventricular thrombus. Right Ventricle The right ventricle is of normal size. R ight ventricular systolic function is normal. Left Atrium The left atrium is normal. No abnormalit y of the interatrial septum is identified. Right Atrium The right atrium is mildly dilated. Aortic Valve The aortic valve is mildly thickened. Th e aortic valve is mildly calcified. The aortic valve is probably trileaflet. The re is no aortic stenosis. There is no aortic regurgitation. Mitral Valve Mild thickening of the mitral leaflets. There is no mitral stenosis. There is trace mitral regurgitation. Tricuspid Valve The tricuspid valve is structurally norm al. There is trace tricuspid regurgitation. Pulmonic Valve The pulmonic valve appears to be structu rally normal. There is no valvular pulmonic stenosis. There is trace pulmon ic valve regurgitation. Great Arteries The aortic root is of normal size. No ab normalities are identified. The ascending aorta is not well visualized. The pulmon fernanda artery is not well visualized. Venous Inferior vena cava is normal in size. In ferior vena cava collapse greater than 50% with respiration. Pericardium/Pleural There is no pericardial effusion. Hemodynamics Pulmonary artery hypertension could not be assessed due to inadequate tricuspid regurgitation jet. The estimated right a trial pressure is 3mmHg. Ejection Fraction 2D Measurements Volume s LV Biplane EF: 17.0 % IVSd: 1.4 cm LA Vo lume Index: LVIDd: 5.4 cm LVIDs: 4.3 cm 28.2 ml/m2 LVPWd: 1.4 cm EDV Biplane: 306.9 ml LV mass(C)d: 325.7 grams EDV Biplane In dex: 129.7 ESV Biplane: 254.8 ml LV mass(C)dI: 137.6 grams/m2 ESV Biplan e Index: 107.6 Ao root diam: 3.6 cm SV(LVOT): 76.2 ml Ao root diam index: 1.5 LV Stroke Volum e: 76.2 ml LVOT diam: 2.3 cm SI(LVOT): 32.2 ml/m2 TAPSE_phl: 2.0 cm Doppler Ao V2 VTI: 24.0 cm Ao valve max: 6.9 mmHg Ao valve mean: 4.1 mmHg MV E max elian: 62.9 cm/sec MV A max elian: 93.9 cm/sec MV E/A: 0.67 MV dec time: 0.17 sec Lat Peak E' Elian: 5.0 cm/sec E/ e' (lat): 12.5 Med Peak E' Elian: 5.3 cm/sec E/e' (med): 11.9 E/e' Average: 12.2 KAYDEN(I,D): 3.2 cm2 Dimensionless index Aov: 0.77 I WMSI = 2.25 % Normal = 0 Segments Size X - Cannot 1 - Normal 2 - 3 - Akinetic 4 - 1-2 small Interpret Hypokinetic Dyskinetic 3-5 mod erate 5 - 6-14 large Aneurysmal 15-16 diffuse Tisha Coleman MD ECHO ORDERABLES (ABNORMAL) POCT Glucose (02/21/2022 7:31 AM EDT) P athologist Signature POC Glucose 201 (H) 65 - 199 [facility] mg/dL [facility] Comment: Supplemental ranges: <140 mg/dL before meals <180 mg/dL all other times of the day Specimen Anatomical Collection Method Collection Time Receive d Time (Source) Location / / Volume Laterality Blood 02/21/2022 7:31 AM 7:31 EDT AM EDT Elmer [place]ore MD POINT OF CARE TEST ORDERABLE S Performing Organization Address City/State/Z[place] [address] Differential, Automated (02/21/2022 2:54 AM EDT) athologist Signature Neutrophils % 60.0 % [facility] Neutr Abs (ANC) 3.83 1.70 - [facility] 6.10 [facility] x10(3)/[facility] LABORATORY Lymphocytes % 25.9 % [facility] Lymphocytes Abs 1.6 0.9 - 3.2 [facility] x10(3)/[facility] LABORATORY Monocytes % 8.8 % [facility] Monocyte Abs 0.6 0.3 - 0.9 [facility] x10(3)/[facility] LABORATORY Eosinophils % 4.5 % [facility] Eosinophils Abs 0.3 0.0 - 0.4 [facility] x10(3)/[facility] LABORATORY Basophils % 0.6 % [facility] Basophils Abs 0.0 0.0 - 0.1 [facility] x10(3)/[facility] LABORATORY Immature Gran % 0.20 % [facility] Comment: Immature granulocytes(IG's)percentage an d absolute count will include metamyelocytes, myelocytes, and promyelo cytes. Blood smears from CBCs yielding IG's will be scanned manually for concor dance. If this scan disagrees with the automated IG or if promyelocytes are not ed, a manual differential will be performed. Julianna Gran Abs 0.01 0.00 - 0.04 x10(3)/[facility] LAB[facility]ORY Specimen Anatomical Collection Method Collection Time Receive d Time (Source) Location / / Volume Laterality Blood 02/21/2022 2:54 AM 3:09 EDT AM EDT Resulting Agency Comment Spec In Lab Tisha Coleman MD HEMATOLOGY ORDERABLES Performing Organization Address City/State/ZIP [place] [address] Hemogram (02/21/2022 2:54 AM EDT) P athologist Signature WBC 6.4 4.0 - 9.5 [facility] x10(3)/[facility] LABORATORY RBC 5.09 4.58 - [facility] 5.54 [facility] x10(6)/[facility] LABORATORY Hemoglobin 16.1 13.7 - [facility] 16.5 g/dL [facility] Hematocrit 47.3 40.5 - [facility] 48.5 % [facility] MCV 92.9 82.9 - [facility] 93.1 [facility] MCH 31.6 27.5 - [facility] 32.1 pg [facility] MCHC 34.0 32.0 - [facility] 35.7 g/dL [facility] Platelets 173 145 - 357 [facility] x10(3)/[facility] LABORATORY RDWSD 43.3 36.0 - [facility] 45.0 [facility] LAB[facility]ATORY RDWCV 12.6 11.4 - [facility] 13.8 % [facility] MPV 12.1 7.6 - 12.9 [facility] LABORATORY nRBC % Auto 0.0 % [facility] nRBC Abs Auto 0.000 0.000 - [facility] 0.000 [facility] x10(3)/[facility] LABORATORY Specimen Anatomical Collection Method Collection Time Receive d Time (Source) Location / / Volume Laterality Blood 02/21/2022 2:54 AM 3:09 EDT AM EDT Resulting Agency Comment Spec In Lab Tisha Coleman MD HEMATOLOGY ORDERABLES Performing Organization Address City/State/ZIP [place] [address] Heparin (unfractionated) Level (02/21/2022 2:54 AM EDT) P athologist Signature Heparin UFH 0.47 IU/mL [facility] Comment: Heparin (anti-Xa) levels should be deter mined in a plasma sample that has been drawn 6 hours after a dose change to rizwana roximate steady-state for continuous heparin infusions. Indication specific Heparin (anti-Xa) le vels based on order set selection: Acute DVT or PE treatment: 0.3 ? 0.7 IU/mL Thrombosis Prevention (eg. atrial fibril lation, taco-procedural bridging, mechanical valves): 0.3 ? 0.7 IU/mL Acute Coronary Syndrome: 0.3 ? 0.7 IU/mL Stroke Indications: 0.3 ? 0.5 IU/mL Ultra-low intensity (select indications in cardiac surgery): 0.1 ? 0.3 IU/mL Specimen Anatomical Collection Method Collection Time Receive d Time (Source) Location / / Volume Laterality Blood 02/21/2022 2:54 AM 2 3:09 EDT AM EDT Resulting Agency Comment Spec In Lab Tisha Coleman MD HEMATOLOGY ORDERABLES Performing Organization Address City/State/ZIP Code Phon e Number [place] [phone] (ABNORMAL) BMP w/fasting Glucose (02/21/2022 2:54 AM EDT) P athologist Signature Glucose 173 (H) 65 - 99 [facility] Fasting mg/dL [facility] Comment: ?Fasting* Glucose Interpretive C riteria Normal ?65-99 mg/dL Impaired Fasting glucose ?100-125 mg/dL Consistent with Diabetes Mellitus ? >or= 126 mg/dL *Fasting is defined as no caloric intake for at least 8 hours In the absence of unequivocal hypergly cemia a plasma glucose value of >or= 126 mg/dL should be repeated on a subseq u day. Diagnosis and Classification of Diabetes Mellitus, Position Statement from the [place] [employer]. ??Diabete s Care, Volume 33, Supplement 1, Sep 2009 BUN 20 10 - 20 mg/dL [facility] Creatinine 0.80 0.80 - 1.50 mg/dL [facility] Sodium 137 135 - 145 mmol/L [facility] Potassium 4.0 3.5 - 5.0 mmol/L [facility] Comment: Please note: ??Patients with WBC >100,00 0 may have falsely elevated Potassium levels. ??For accurate Potassium quantif ication in these patients send serum separator tube (gold top) for subsequent determinations. ??Contact the Clinical Chemistry Laboratory if there are any qu estions. Chloride 102 98 - 107 mmol/L [facility] CO2 24 22 - 31 mmol/L [facility] Anion Gap 11 5 - 15 mmol/L [facility] Calcium 9.1 8.5 - 10.5 mg/dL [facility] Estimated GFR 91 >=60 mL/min/1.73 m?? [facility] Comment: This patient? s estimated glomerular filtration rate (eGFR) is between 91 mL/min/1.73 m2 (patients with less muscl e mass per kg body weight) and 106 mL/min/1.73 m2 (patients with more muscl e mass per kg body weight) as determined by the CKD-EPI equation. Asse ssment of eGFR is not appropriate when creatinine concentrations are rapidly ch anging. For clinical decisions where creatinine clearance will affect therapy , a 24-hour urine creatinine clearance may be advised. Assignment of CKD stage 1 - 5 for patien ts with an eGFR near the transition point between stages may be based on cli nical assessment of muscle mass and symptoms in addition to eGFR. Specimen Anatomical Collection Method Collection Time Receive d Time (Source) Location / / Volume Laterality Blood 02/21/2022 2:54 AM 2 3:09 EDT AM EDT Resulting Agency Comment Spec In Lab Tisha Coleman MD CHEMISTRY ORDERABLES Performing Organization Address City/State/ZIP [place] [address] Triglyceride (02/21/2022 2:54 AM EDT) P athologist Signature Triglycerides 112 mg/dL [facility] Comment: Average Risk/Lower Risk: <150 mg/dL Borderline High Risk: 150-199 mg/dL High Risk: 200-499 mg/dL Very High Risk: >ei=220 mg/dL Specimen Anatomical Collection Method Collection Time Receive d Time (Source) Location / / Volume Laterality Blood 02/21/2022 2:54 AM 2 3:09 EDT AM EDT Resulting Agency Comment Spec In Lab Tisha Coleman MD CHEMISTRY ORDERABLES Performing Organization Address City/[facility]/[place] [address] HDL/Cholesterol Profile (02/21/2022 2:54 AM EDT) P athologist Signature Chol, Total 132 mg/dL [facility] Comment: Lower Risk: <200 mg/dL Average Risk: 200-239 mg/dL Higher Risk: >xx=096 mg/dL HDL 54 mg/dL [facility] Comment: Males: ?? Higher Risk: <40 mg/dL Females: ?? Higher Risk: <50 mg/dL Chol/HDL Ratio 2.4 ratio [facility] Chol/HDL Interpretation See Note [facility] Comment: Lipid management should be guided by a p atient? s ASCVD risk, goals and preferences. ACC/AHA Guidelines recommend high intens ity statin if clinical ASCVD or LDL greater than or equal to 190 mg/dL. http://[email or web address]/[email or web address] Measure LDL if Total Cholesterol minus H DL Cholesterol is greater than 220 mg/dL. Adults aged 40-75 with LDL 70-189 mg/dL should have their 10 year ASCVD risk estimated with the ACC/AHA ASCVD risk es timator http://tools.acc.org/XMQCK-Qeve-Amacisea r/ Statin should be discussed if risk great er than or equal to 7.5% in non-diabetics. With diabetes, moderate i ntensity statin is recommended if risk less than 7.5%, high intensity if risk g reater than or equal to 7.5%. Annual lipid monitoring on statins is no t necessary. Lifestyle modification is a critical com ponent of ASCVD risk reduction. Specimen Anatomical Collection Method Collection Time Receive d Time (Source) Location / / Volume Laterality Blood 02/21/2022 2:54 AM 2 3:09 EDT AM EDT Resulting Agency Comment Spec In Lab Tisha Coleman MD CHEMISTRY ORDERABLES Performing Organization Address City/[facility]/ZIP Code Phon e Number [place] [phone] LDL Cholesterol, Direct (02/21/2022 2:54 AM EDT) P athologist Signature LDL Chol 67 mg/dL [facility] LABORATORY Comment: Lowest Risk: <100 mg/dL Lower Risk: 100-129 mg/dL Borderline High Risk: 130-159 mg/dL High Risk: 160-189 mg/dL Very High Risk: >mi=049 mg/dL Specimen Anatomical Collection Method Collection Time Receive d Time (Source) Location / / Volume Laterality Blood 02/21/2022 2:54 AM 2 3:09 EDT AM EDT Resulting Agency Comment Spec In Lab Tisha Coleman MD CHEMISTRY ORDERABLES Performing Organization Address City/State/ZIP [place] [address] (ABNORMAL) Hemoglobin A1c (02/21/2022 2:54 AM EDT) Analysis Performed At Patho logist Time Signature Hemoglobin A1C 7.3 (H) 4.3 - 5.6 [facility] Comment: Reference Range: 4.3 - 5.6% 5.7 - 6.4% - Increased Risk of Developin g Diabetes Mellitus >= 6.5% - Consistent with diagnosis of D iabetes Mellitus In the absence of hyperglycemia (i.e. pl asma glucose > 200 mg/dL) or classic symptoms of hyperglycemia a repeat measu rement of HbA1c should be performed on a separate sample to confirm the diagnos is. Diagnosis and Classification of Diabetes Mellitus, Diabetes Care 2013; 36: Suppl. 1, S67-23 Est Avg Gluc 162 mg/dL [facility] Comment: eAG equivalents for HbA1c percentages: HbA1c(%) ?eAG(mg/dL) 6.0 ?126 6.5 ?140 7.0 ?154 7.5 ?169 8.0 ?183 8.5 ?197 9.0 ?212 9.5 ?226 10.0 ? 240 Limitations: The eAG calculation has not been validated on women, individuals below 18 years old and above 70 years old, and individuals with hemoglobinopathies. Additional resources are available on e ADA website. Eduardo KIRAN, Angelita J, Tiffanie R, et al. ??Tr anslating the A1C assay into estimated average glucose values. ??Diabetes Care 2008:31(8):8806-0410. Specimen Anatomical Collection Method Collection Time Receive d Time (Source) Location / / Volume Laterality Blood 02/21/2022 2:54 AM 2 3:09 EDT AM EDT Resulting Agency Comment Spec In Lab Tisha Coleman MD CHEMISTRY ORDERABLES Performing Organization Address City/State/ZIP [place] [address] (ABNORMAL) Troponin (02/21/2022 2:54 AM EDT) athologist Signature Troponin-T 0.02 (H) 0.00 - [facility] 0.00 ng/mL [facility] Comment: The 99th percentile for Troponin T is le ss than 0.01 ng/mL, any detectable cTnT concentration using this assay should be considered elevated. According to the third universal definit ion of myocardial infarction the following criteria with a clinical prese ntation consistent with acute myocardial ischemia meets the diagnosis for a myocardial infarction (NC). Detection of a rise and/or fall of cTnT, with at least one value greater than the 99th percentile (> or = 0.01) and wi th at least one of the following ?? Symptoms of ischemia ?? New or presumed new significant ST-se gment-T wave (ST-T) changes or new left bundle branch block (LBBB) ?? Development of pathologic Q waves in the ECG ?? Imaging evidence of new loss of viabl e myocardium or new regional wall motion abnormality ?? Identification of an intracoronary th rombus by angiography or autopsy Samples for cTnT testing should be obtai yeimi serially upon first assessment and again 3 to 6 hours later. If the clinica l suspicion is high and previous samples have been negative an additional sample may be indicated. Reference: Third [place] Definition of Myocardial Infarction. Journal of the [place] [employer] 2012;60:1581-98 Specimen Anatomical Collection Method Collection Time Receive d Time (Source) Location / / Volume Laterality Blood 02/21/2022 2:54 AM 3:09 EDT AM EDT Resulting Agency Comment Spec In Lab Tisha Coleman MD CHEMISTRY ORDERABLES Performing Organization Address City/[facility]/ZIP Code Phon e Number [address] POCT Glucose (02/21/2022 12:42 AM EDT) athologist Signature POC Glucose 185 65 - 199 [place] mg/dL [facility] Comment: Supplemental ranges: <140 mg/dL before meals <180 mg/dL all other times of the day Specimen Anatomical Collection Method Collection Time Receive d Time (Source) Location / / Volume Laterality Blood 02/21/2022 12:42 02/21/2022 AM EDT 12:42 AM EDT Elmer Fiore MD POINT OF CARE TEST ORDERABLE S Performing Organization Address City/[facility]/[place] [address] (ABNORMAL) POCT Glucose (02/20/2022 10:41 PM EDT) athologist Signature POC Glucose 344 (H) 65 - 199 [place] mg/dL [facility] Comment: Supplemental ranges: <140 mg/dL before meals <180 mg/dL all other times of the day Specimen Anatomical Collection Method Collection Time Receive d Time (Source) Location / / Volume Laterality Blood 02/20/2022 10:41 02/20/2022 PM EDT 10:41 PM EDT Elmer Fiore MD POINT OF CARE TEST ORDERABLE S Performing Organization Address City/State/ZIP Code Phon e Number [address] COVID-19 PCR (02/20/2022 9:38 PM EDT) [facility] Method Time Signature SARS-CoV-2 Not Detected Not Detected [place] RNA PCR [facility] Comment: This result should be interpreted in com bination with the clinical observations, patient history and epidem iological information. For testing of asymptomatic individuals, assay performa nce characteristics and clinical utility have not been evaluated. Testing for SARS-CoV-2 (Severe acute respiratory syndrome coronavirus 2, form erly known as 2019 novel coronavirus or 2019-nCoV) to aid in the diagnosis of CO VID-19 is performed using the Simplexa COVID-19 Direct Assay by [employer] clark as authorized by the FDA issued Emergency Use Authorization (EUA). This assay is intended for In-vitro Diagnostic (IVD) use with nasopharyngeal swabs collected from individuals meeting the [facility] criteria for testing. Th e assay is performed based on the instructions for use and additional guid ance provided by the FDA. Testing is performed in the Microbiology Laboratory within the Department of Pathology and Laboratory Medicine at [facility], certified under the Clinical Laboratory Improvement Amendmen ts of 1988 (CLIA), 42 U.S.C. section 263a, to perform high complexity tests. Assay performance has been verified according to clinical laboratory regulat ory requirements. Test results are provided above. A resul t of Not Detected indicates that the viral RNA target is not present but does not preclude SARS-CoV-2 infection. False negative results may occur if a sp ecimen is improperly collected, transported or handled; if amplification inhibitors are present; or if inadequate numbers of viral particles ar e present in the specimen. A result of Detected suggests a current or recent infection and the patient is presumed to be infected. Positive and negative pr edictive values for this test are highly dependent on disease prevalence. A result of Invalid indicates the inability to conclusively determine the presence or absence of SARS-CoV-2 RNA in the sample which can be due to a vari ety of factors. Recollection is recommended in the case of an invalid re sult. CDC COVID-19 criteria for testing on hum an specimens and clinical management guidance information are available at e CDC Coronavirus Disease 2019 (COVID-19) webpage under Information fo r Healthcare Professionals (https://www.cdc.gov/coronavirus/2019-nc ov/hcp/index.html). Additional information about this and ot her EUA tests can be found in provider and patient fact sheets at the following FDA website: https://www.fda.gov/medical-devices/hsbrlxwphoq-ilbordh-3603-qipeb-68-qcvyxffqg- bmq-aqbwvaxiupsgge-nxamgjd-devices/acurj-erkeedjetgv-axya SARS-CoV-2 Source DOUBLE NEEDLE STITCHER Swab [facility] Specimen (Source) Anatomical Collection Method Collection Time Re ceived Time Location / / Volume Laterality Nasopharyngeal Swab 02/20/2022 9:38 02/20 PM EDT 10:57 PM EDT Comment: Symptoms->Surveillance Resulting Agency Comment Spec In Lab Tisha Coleman MD MICROBIOLOGY - GENERAL ORDER ROSEY Performing Organization Address City/State/ZIP Code Phon e Number [place] [phone] Differential, Automated (02/20/2022 8:32 PM EDT) P athologist Signature Neutrophils % 60.0 % [facility] Neutr Abs (ANC) 3.61 1.70 - [facility] 6.10 [facility] x10(3)[facility] LABORATORY Lymphocytes % 26.7 % [facility] Lymphocytes Abs 1.6 0.9 - 3.2 [facility] x10(3)/[facility] LABORATORY Monocytes % 8.1 % [facility] Monocyte Abs 0.5 0.3 - 0.9 [facility] x10(3)/[facility] LABORATORY Eosinophils % 4.3 % [facility] Eosinophils Abs 0.3 0.0 - 0.4 [facility] x10(3)/[facility] LABORATORY Basophils % 0.7 % [facility] Basophils Abs 0.0 0.0 - 0.1 [facility] x10(3)[facility] LABORATORY Immature Gran % 0.20 % [facility] Comment: Immature granulocytes(IG's)percentage an d absolute count will include metamyelocytes, myelocytes, and promyelo cytes. Blood smears from CBCs yielding IG's will be scanned manually for concor danmarisel. If this scan disagrees with the automated IG or if promyelocytes are not ed, a manual differential will be performed. Julianna Gran Abs 0.01 0.00 - 0.04 x10(3)/[facility] MAR Y [facility] Specimen Anatomical Collection Method Collection Time Receive d Time (Source) Location / / Volume Laterality Blood 02/20/2022 8:32 PM 8:40 EDT PM EDT Resulting Agency Comment Spec In Lab Tisha Coleman MD HEMATOLOGY ORDERABLES Performing Organization Address City/State/ZIP [place] [address] Hemogram (02/20/2022 8:32 PM EDT) P athologist Signature WBC 6.0 4.0 - 9.5 [facility] x10(3)/[facility] LABORATORY RBC 5.12 4.58 - [facility] 5.54 [facility] x10(6)/[facility] LABORATORY Hemoglobin 16.4 13.7 - [facility] 16.5 g/dL [facility] Hematocrit 47.6 40.5 - [facility] 48.5 % [facility] MCV 93.0 82.9 - [facility]1 [facility] MCH 32.0 27.5 - [facility] 32.1 pg [facility] MCHC 34.5 32.0 - [facility] 35.7 g/dL [facility] Platelets 157 145 - 357 [facility] x10(3)/[facility] LABORATORY RDWSD 43.7 36.0 - [facility] 45.0 [facility] LABORATORY RDWCV 12.6 11.4 - [facility] 13.8 % [facility] MPV 12.1 7.6 - 12.9 [facility] LABORATORY nRBC % Auto 0.0 % [facility] nRBC Abs Auto 0.000 0.000 - [facility] 0.000 [facility] x10(3)/[facility] LABORATORY Specimen Anatomical Collection Method Collection Time Receive d Time (Source) Location / / Volume Laterality Blood 02/20/2022 8:32 PM 2 8:40 EDT PM EDT Resulting Agency Comment Spec In Lab Tisha Coleman MD HEMATOLOGY ORDERABLES Performing Organization Address City/[facility]/ZIP [facility] [place] [address] (ABNORMAL) pro-Brain Natriuretic Peptide (02/20/2022 8:32 PM EDT) P athologist Signature ProBNP 4,959 (H) <=124 [facility] pg/mL [facility] Specimen Anatomical Collection Method Collection Time Receive d Time (Source) Location / / Volume Laterality Blood 02/20/2022 8:32 PM 2 8:40 EDT PM EDT Resulting Agency Comment Spec In Lab Tisha Coleman MD CHEMISTRY ORDERABLES Performing Organization Address [facility] [place] [address] Heparin (unfractionated) Level (02/20/2022 8:32 PM EDT) P athologist Signature Heparin UFH 0.09 IU/mL [facility] Comment: Heparin (anti-Xa) levels should be deter mined in a plasma sample that has been drawn 6 hours after a dose change to rizwana roximate steady-state for continuous heparin infusions. Indication specific Heparin (anti-Xa) le vels based on order set selection: Acute DVT or PE treatment: 0.3 ? 0.7 IU/mL Thrombosis Prevention (eg. atrial fibril lation, taco-procedural bridging, mechanical valves): 0.3 ? 0.7 IU/mL Acute Coronary Syndrome: 0.3 ? 0.7 IU/mL Stroke Indications: 0.3 ? 0.5 IU/mL Ultra-low intensity (select indications in cardiac surgery): 0.1 ? 0.3 IU/mL Specimen Anatomical Collection Method Collection Time Receive d Time (Source) Location / / Volume Laterality Blood 02/20/2022 8:32 PM 2 8:40 EDT PM EDT Resulting Agency Comment Spec In Lab Tisha Coleman MD HEMATOLOGY ORDERABLES Performing Organization Address City/State/ZIP [place] [address] Troponin (02/20/2022 8:32 PM EDT) athologist Signature Troponin-T <0.01 0.00 - 0.00 [facility] [place] ng/mL [facility] Comment: The 99th percentile for Troponin T is le ss than 0.01 ng/mL, any detectable cTnT concentration using this assay should be considered elevated. According to the third universal definit ion of myocardial infarction the following criteria with a clinical prese ntation consistent with acute myocardial ischemia meets the diagnosis for a myocardial infarction (NC). Detection of a rise and/or fall of cTnT, with at least one value greater than the 99th percentile (> or = 0.01) and wi th at least one of the following ?? Symptoms of ischemia ?? New or presumed new significant ST-se gment-T wave (ST-T) changes or new left bundle branch block (LBBB) ?? Development of pathologic Q waves in the ECG ?? Imaging evidence of new loss of viabl e myocardium or new regional wall motion abnormality ?? Identification of an intracoronary th rombus by angiography or autopsy Samples for cTnT testing should be obtai yeimi serially upon first assessment and again 3 to 6 hours later. If the clinica l suspicion is high and previous samples have been negative an additional sample may be indicated. Reference: Third [place] Definition of Myocardial Infarction. Journal of the [place] [employer] 2012;60:1581-98 Specimen Anatomical Collection Method Collection Time Receive d Time (Source) Location / / Volume Laterality Blood 02/20/2022 8:32 PM 8:40 EDT PM EDT Resulting Agency Comment Spec In Lab Tisha Coleman MD CHEMISTRY ORDERABLES Performing Organization Address City/[facility]/ZIP [place] [address] (ABNORMAL) BMP w/fasting Glucose (02/20/2022 8:32 PM EDT) athologist Signature Glucose 282 (H) 65 - 99 [facility] [place] Fasting mg/dL [facility] Comment: ?Fasting* Glucose Interpretive C riteria Normal ?65-99 mg/dL Impaired Fasting glucose ?100-125 mg/dL Consistent with Diabetes Mellitus ? >or= 126 mg/dL *Fasting is defined as no caloric intake for at least 8 hours In the absence of unequivocal hypergly cemia a plasma glucose value of >or= 126 mg/dL should be repeated on a subseq uent day. Diagnosis and Classification of Diabetes Mellitus, Position Statement from the [place] [employer]. ??Diabete s Care, Volume 33, Supplement 1, Sep 2009 BUN 20 10 - 20 mg/dL [facility] Creatinine 0.85 0.80 - 1.50 mg/dL [facility] Sodium 137 135 - 145 mmol/L [facility] Potassium 4.0 3.5 - 5.0 mmol/L [facility] Comment: Please note: ??Patients with WBC >100,00 0 may have falsely elevated Potassium levels. ??For accurate Potassium quantif ication in these patients send serum separator tube (gold top) for subsequent determinations. ??Contact the Clinical Chemistry Laboratory if there are any qu estions. Chloride 101 98 - 107 mmol/L [facility] CO2 24 22 - 31 mmol/L [facility] Anion Gap 12 5 - 15 mmol/L [facility] Calcium 9.3 8.5 - 10.5 mg/dL [facility] Estimated GFR 89 >=60 mL/min/1.73 m?? [facility] Comment: This patient? s estimated glomerular filtration rate (eGFR) is between 89 mL/min/1.73 m2 (patients with less muscl e mass per kg body weight) and 103 mL/min/1.73 m2 (patients with more muscl e mass per kg body weight) as determined by the CKD-EPI equation. Asse ssment of eGFR is not appropriate when creatinine concentrations are rapidly ch anging. For clinical decisions where creatinine clearance will affect therapy , a 24-hour urine creatinine clearance may be advised. Assignment of CKD stage 1 - 5 for patien ts with an eGFR near the transition point between stages may be based on cli nical assessment of muscle mass and symptoms in addition to eGFR. Specimen Anatomical Collection Method Collection Time Receive d Time (Source) Location / / Volume Laterality Blood 02/20/2022 8:32 PM 2 8:40 EDT PM EDT Resulting Agency Comment Spec In Lab Tisha Coleman MD CHEMISTRY ORDERABLES Performing Organization Address City/[facility] Phon e Number [place] [phone] EKG 12 Lead (02/20/2022 7:50 PM EDT) Component Value Ref Range Test Analysis Performed Pathologis t Method Time At Signature Ventricular rate 80 BPM MUSE SYSTEM Atrial Rate 80 BPM MUSE SYSTEM P-R Interval 170 ms MUSE SYSTEM QRS Duration 112 ms MUSE SYSTEM Q-T Interval 390 ms MUSE SYSTEM QTC Calculated 449 ms MUSE SYSTEM (Bezet) Calculated P Mccle[place]and 52 degrees MUSE SYSTEM Calculated R M[place] -34 degrees MUSE SYSTEM Calculated T Mccle[place]and -91 degrees MUSE SYSTEM INTERPRETATION Normal sinus rhythm MUSE SYSTEM Possible Left atrial enlargement Left axis deviation Minimal voltage criteria for LVH, may be normal variant ( Arden product ) Septal infarct , age undetermined T wave abnormality, consider anterolateral ischemia Abnormal ECG No previous ECGs available Confirmed by MD Rito, Jose Luis ([id number]) on 02/21/2022 7:23:51 A M Specimen Anatomical Collection Method Collection Time Receive d Time (Source) Location / / Volume Laterality 02/20/2022 7:50 PM 2 7:23 EDT AM EDT Tisha Coleman MD ECG ORDERABLES Performing Organization Address City/[facility] Phon e Number MUSE SYSTEM documented in this encounter Visit Diagnoses Diagnosis NSTEMI (non-ST elevated myocardial infar ction) - Primary Acute myocardial infarction, subendocard ial infarction, episode of care unspecified Non-ST elevation myocardial infarction ( NSTEMI) Acute myocardial infarction, subendocard ial infarction, episode of care unspecified Acute systolic congestive heart failure Acute systolic heart failure Acute systolic congestive heart failure Acute systolic heart failure documented in this encounter Admitting Diagnoses Diagnosis NSTEMI (non-ST elevated myocardial infar ction) Acute myocardial infarction, subendocard ial infarction, episode of care unspecified documented in this encounter Administered Medications Inactive Administered Medications - up to 3 most recent administrations Medication Order MAR Action Action Date Dose Rate Site acetaminophen (Tylenol) tablet 650 Given 02/27/2022 9:35 PM EDT 650 mg mg 650 mg, Oral, EVERY 4 HOURS PRN, Starting on Sat02/20/22 at 2137, Until Sat02/28/22 at 1723, Pain, Headaches, Maximum dose of acetaminophen is 4000 mg from all sources in 24 hours. When ordered for pain, acetaminophen should be given even when other ordered pain medications are indicated. , Routine Given 02/27/2022 5:07 PM EDT 650 mg Given 02/26/2022 7:16 PM EDT 650 mg aspirin EC tablet 81 mg Given 02/28/2022 8:52 AM EDT 81 mg 81 mg, Oral, DAILY, First dose on Sat02/21/22 at 0900, Until Discontinued, Routine Given 02/26/2022 8:19 AM EDT 81 mg Given 02/25/2022 8:50 AM EDT 81 mg atorvastatin (Lipitor) tablet 40 mg Given 02/27/2022 4:27 PM EDT 40 mg 40 mg, Oral, EVERY EVENING, First dose on Sat02/20/22 at 2230, Until Discontinued, Routine Given 02/26/2022 5:16 PM EDT 40 mg Given 02/25/2022 5:05 PM EDT 40 mg clopidogreL (Plavix) tablet 75 mg Given 02/21/2022 8:51 AM EDT 75 mg 75 mg, Oral, DAILY, First dose on Sat02/21/22 at 0900, Until Discontinued, Routine clopidogreL (Plavix) tablet 75 mg Given 02/28/2022 8:52 AM EDT 75 mg 75 mg, Oral, DAILY, First dose on Sat02/23/22 at 1345, Until Discontinued, Routine Given 02/26/2022 8:18 AM EDT 75 mg Given 02/25/2022 8:50 AM EDT 75 mg dextrose 10% infusion 250 mL, at 1,000 mL/hr, Intravenous, GONZALO RY 30 MIN PRN, Starting on Sat02/20/22 at 2137, Until Sat02/28/22 at 1723, For BG 50-70 mg/dL: Oral treatment preferred: [...] for the duration of the active insulin. doxycycline monohydrate (Monodox) capsule 200 Given 8:52 AM EDT 200 mg mg 200 mg, Oral, ONCE, 1 dose, On Sat02/28/22 at 0800, Routine, Indication for (Active or Suspected): Other (See comment) escitalopram (Lexapro) tablet 10 mg Given 02/28/2022 8:51 AM EDT 10 mg 10 mg, Oral, DAILY, First dose on Sat02/21/22 at 0900, Until Discontinued, Routine Given 02/26/2022 8:19 AM EDT 10 mg Given 02/25/2022 8:50 AM EDT 10 mg folic acid (Folvite) tablet 1,000 mcg Given 02/28/2022 8:52 AM EDT 1,000 mcg 1,000 mcg, Oral, DAILY, First dose on Sat02/21/22 at 0900, Until Discontinued, Routine Given 02/26/2022 8:18 AM EDT 1,000 mcg Given 02/25/2022 8:49 AM EDT 1,000 mcg furosemide (Lasix) tablet 20 mg Given 02/28/2022 8:52 AM EDT 20 mg 20 mg, Oral, DAILY, First dose on Sat02/21/22 at 0930, Until Discontinued, Routine Given 02/26/2022 8:18 AM EDT 20 mg Given 02/25/2022 8:49 AM EDT 20 mg gabapentin (Neurontin) capsule 300 mg Given 02/28/2022 2:48 PM EDT 300 mg 300 mg, Oral, 3 TIMES DAILY, First dose on Sat02/20/22 at 2230, Until Discontinued, Routine Given 02/28/2022 8:52 AM EDT 300 mg Given 02/27/2022 9:35 PM EDT 300 mg gadoterate meglumine (Dotarem) (0.5 mMol/mL) Given 05/2022 1:36 PM EDT 42 mLs injection solution 0-100 mL 0-100 mL, Intravenous, ONCE PRN, 1 dose, Starting on Sat02/22/22 at 1400, Until Sat02/22/22 at 1336, Per Protocol, Radiology Contrast, Routine glucagon (Glucagen) (1 mg/mL) injection solution 1 mg 1 mg, Intramuscular, EVERY 30 MIN PRN, S tarting on Sat02/20/22 at 2137, Until Sat02/28/22 at 1723, Low blood sugar, For BG 50-70 mg/dL: [...] Buccal, EVERY 30 MIN PRN, Starting on Sat02/20/22 at 2137, Until Sat02/28/22 at 1723, Low blood sugar, For BG 50-70 mg/dL: [...] weight of tube = 37.5 grams.), Routine heparin (porcine) (5,000 units/1 mL) Given 02/28/2022 8:59 AM ED T 5,000 Units subcutaneous injection 5,000 Units 5,000 Units, Subcutaneous, EVERY 12 HOURS SCHEDULED (2 times per day), First dose on Sat02/24/22 at 2100, Until Discontinued, Routine Given 02/27/2022 9:35 PM EDT 5,000 Units Given 02/26/2022 8:38 PM EDT 5,000 Units heparin (porcine) 25,000 unit/500 mL inf usion 1 dose, Starting on Sat02/20/22 at 2000, Until Sat02/20/22 at 2034, Deepika Lima: cabinet override heparin (porcine) 50 units/mL New Bag 02/24/2022 3:31 AM EDT 1 ,800 Units/hr 36 mL/hr in sodium chloride 0.45% 500 mL infusion 0-5,000 Units/hr (0-100 mL/hr), Intravenous, CONTINUOUS, Starting on Sat02/20/22 at 2230, Until 02/24/22 at 0855, Begin infusion at 1,000 units per hr (12 units/kg/hr). Maximum initial infusion rate is 1,000 units/hr. Infusion doses are rounded to the nearest 50 units. Target Heparin UFH Level (anti-Xa activity) = 0.3 - 0.7 international unit/mL Start adjustment schedule 6 hours after starting infusion. If Heparin UFH Level is: - Less than 0.1 international unit/mL: Administer PRN bolus and increase rate by 450 units per hr (4 units/kg/hr) - 0.1 - 0.19 international unit/mL: Administer PRN bolus and increase rate by 200 units per hr (2 units/kg/hr) - 0.2 - 0.29 international unit/mL: NO BOLUS and increase rate by 200 units per hr (2 units/kg/hr) - 0.3 - 0.7 international unit/mL: No change - 0.71 - 0.79 international unit/mL: NO BOLUS and decrease rate by 100 units per hr (1 units/kg/hr) - 0.8 - 0.99 international unit/mL: NO BOLUS and decrease rate by 200 units per hr (2 units/kg/hr) - Greater than or equal to 1.00 international unit/mL: Hold infusion for 60 minutes then decrease rate by 300 units per hour (3 units/kg/hr) Repeat Heparin UFH Level 6 hours after initiating heparin. Then 6 hours after each dose adjustment. When 2 consecutive Heparin UFH Level within target range of 0.3 - 0.7 international unit/mL, change Heparin UFH Level to once every 24 hours with A.M. labs while on heparin. RN to order required Heparin UFH Level - Per Protocol, Routine New Bag 02/23/2022 12:53 PM EDT 1,800 Units/hr 36 mL/hr New Bag 02/22/2022 10:18 PM EDT 1,800 Units/hr 36 mL/hr insulin glargine-ygfn (Semglee) (100 Given 02/27/2022 9:34 PM ED T 10 Units unit/mL) subcutaneous injection vial 10 Units 10 Units, Subcutaneous, NIGHTLY, First dose on Sat02/23/22 at 2100, Until Discontinued, Routine Given 02/26/2022 9:58 PM EDT 10 Units Given 02/25/2022 9:06 PM EDT 10 Units insulin lispro (HumaLOG;Admelog) (100 Given 02/28/2022 12:39 PM EDT 8 Units unit/mL) subcutaneous injection vial 0-8 Units 0-8 Units, Subcutaneous, 3 TIMES DAILY WITH MEALS, First dose on Sat02/23/22 at 1200, Until Discontinued, [employer] Give 1 unit for every 10 grams carbohydrate. Hold if not eating or if BG less than 70 mg/dL., Routine Given 02/28/2022 8:57 AM EDT 8 Units Given 02/27/2022 5:36 PM EDT 8 Units insulin lispro (HumaLOG;Admelog) (100 Given 02/23/2022 8:44 AM E DT 1 Units unit/mL) subcutaneous injection vial 1-4 Units 1-4 Units, Subcutaneous, 4 TIMES DAILY BEFORE MEALS & NIGHTLY, First dose (after last modification) on Sat02/20/22 at 2300, Until Discontinued, CORRECTION BOLUS [1-4 Units] Sensitive [...] 240 mg/dL in 2 hours., Routine Given 02/22/2022 8:24 PM EDT 2 Units Given 02/22/2022 4:43 PM EDT 2 Units insulin lispro (HumaLOG;Admelog) (100 Given 02/26/2022 9:58 PM E DT 2 Units unit/mL) subcutaneous injection vial 1-4 Units 1-4 Units, Subcutaneous, 4 TIMES DAILY BEFORE MEALS & NIGHTLY, First dose (after last modification) on Sat02/23/22 at 1130, Until Discontinued, Moderate BG 140 - 160 Give 2 units BG 161 - 200 Give 4 units BG 201 - 240 Give 6 units BG greater than 240, give 8 units every 2 hours until BG less than 240 (no more than three times) & call for new basal insulin orders, Routine Given 02/26/2022 12:02 PM EDT 4 Units Given 02/25/2022 1:28 PM EDT 1 Units insulin lispro (HumaLOG;Admelog) (100 Given 02/28/2022 11:47 AM EDT 2 Units unit/mL) subcutaneous injection vial 2-8 Units 2-8 Units, Subcutaneous, 4 TIMES DAILY BEFORE MEALS & NIGHTLY, First dose (after last modification) on Sat02/27/22 at 1630, Until Discontinued, Moderate BG 140 - 160 Give 2 units BG 161 - 200 Give 4 units BG 201 - 240 Give 6 units BG greater than 240, give 8 units every 2 hours until BG less than 240 (no more than three times) & call for new basal insulin orders, Routine Given 02/28/2022 8:57 AM EDT 2 Units Given 02/27/2022 9:34 PM EDT 2 Units lidocaine (Lidoderm) 5% Patch Applied 02/26/2022 8:37 PM 1 patch 04- Shoulder patch 1 patch EDT (Right) 1 patch, Transdermal, EVERY 24 HOURS, First dose on Sat02/26/22 at 2100, Until Discontinued, Apply patch(es) for 12 hours, and then remove for 12 hours., Routine lidocaine (Lidoderm) topical patch REMOV AL Transdermal, EVERY 24 HOURS, First dose on Sat02/27/22 at 0900, Until Discontinued, Remove lidocaine 5% patch LORazepam (Ativan) tablet 1 mg Given 02/27/2022 9:35 PM EDT 1 mg 1 mg, Oral, EVERY 4 HOURS PRN, Starting on Sat02/20/22 at 2221, Until Sat02/28/22 at 1723, Anxiety, Withdrawal, Routine Given 02/26/2022 10:54 PM EDT 1 mg Given 02/25/2022 10:59 PM EDT 1 mg losartan (Cozaar) tablet 50 mg Given 02/28/2022 8:52 AM EDT 50 mg 50 mg, Oral, DAILY, First dose on Sat02/21/22 at 0900, Until Discontinued, Routine Given 02/26/2022 8:19 AM EDT 50 mg Given 02/25/2022 8:50 AM EDT 50 mg metoprolol tartrate (Lopressor) tablet 12.5 Given 05/2022 6:00 AM EDT 12.5 mg mg 12.5 mg, Oral, EVERY 6 HOURS SCHEDULED, First dose on Sat02/21/22 at 0000, Until Discontinued, Hold for SBP <90 or HR <60, Routine Given 02/22/2022 12:44 AM EDT 12.5 mg Given 02/21/2022 5:46 PM EDT 12.5 mg metoprolol tartrate (Lopressor) tablet 2 5 mg Given 02/28/2022 11:47 AM EDT 25 mg 25 mg, Oral, EVERY 6 HOURS SCHEDULED, First dose (after last modification) on Sat02/22/22 at 1200, Until Discontinued, Hold for SBP <90 or HR <60, Routine Given 02/28/2022 6:37 AM EDT 25 mg Given 02/28/2022 12:17 AM EDT 25 mg multivitamin with minerals (Thera M) Given 02/28/2022 11:46 AM E DT 1 tablet tablet 1 tablet 1 tablet, Oral, DAILY, First dose on Sat02/21/22 at 0900, Until Discontinued, Routine Given 02/26/2022 8:19 AM EDT 1 tablet Given 02/25/2022 8:50 AM EDT 1 tablet nitroGLYcerin (Nitrostat) disintegrating tablet 0.4 mg 0.4 mg, Sublingual, EVERY 5 MIN PRN, Starting on Sat at 1324, Until Sat02/28/22 at 1723, Chest pain, May repeat every 5 minutes for a total of three doses. Notify provider if chest pain not reliev ed with nitroglycerin. Do not administer nitroglycerin if the patient has received or taken lei sphodiesterase (PDE-5) inhibitors such as sildenafil, tadalafil or vardenafil within the last 24 to 72 hours., Recovery (Recovery-Hospital Unit), Routine pantoprazole EC (Protonix) tablet 40 mg Given 02/28/2022 8:52 AM EDT 40 mg 40 mg, Oral, DAILY, First dose (after last modification) on Sat02/21/22 at 0900, Until Discontinued, DO NOT CRUSH OR OPEN Given 02/26/2022 8:18 AM EDT 40 mg Given 02/25/2022 8:51 AM EDT 40 mg perflutren lipid microspheres (Definity) Given 02/26/2022 7:50 A M EDT 0.5 mLs injection 0.5 mL 0.5 mL, Intravenous, ONCE PRN, 1 dose, Starting on Sat02/26/22 at 0750, Until Sat02/26/22 at 0750, Other, for enhancement of sub-optimal echo images, Echo Lab (Intra-Procedure), Routine perflutren protein-A microsphers (Optison) Given 02/21/2022 7:30 AM EDT 3 mLs (0.22 mg/mL) injection 3 mL 3 mL, Intravenous, ONCE PRN, 1 dose, Starting on Sat02/21/22 at 0817, Until Sat02/21/22 at 0730, for enhancement of sub-optimal echo images, Echo Lab (Intra-Procedure), Routine polyethylene glycoL (Miralax) packet 17 g 17 g, Oral, DAILY PRN, Starting on Sat at 1700, Until Sat02/28/22 at 1723, Constipation, Routine senna-docusate (Pericolace) 8.6-50 mg per Given 2021 7:14 PM EDT 2 tablets tablet 2 tablet 2 tablet, Oral, DAILY, First dose on Sat02/26/22 at 1800, Until Discontinued, Routine sodium chloride 0.9 % (flush) (BD PosiFlush Given 02/28/2022 8:4 1 AM EDT 5 mLs Normal Saline 0.9) flush 5 mL 5 mL, Intravenous, 2 TIMES DAILY, First dose on Sat02/20/22 at 2230, Until Discontinued, Routine Given 02/27/2022 9:36 PM EDT 5 mLs Given 02/26/2022 9:58 PM EDT 5 mLs sodium chloride 0.9% infusion New Bag 02/21/2022 5:11 PM EDT 100 mL/hr 100 mL/hr 100 mL/hr, Intravenous, CONTINUOUS, Starting on Sat02/21/22 at 1730, Until Sat02/21/22 at 1929, Recovery (Recovery-Hospital Unit) sodium chloride 0.9% infusion New Bag 02/27/2022 3:10 PM EDT 100 mL/hr 100 mL/hr 100 mL/hr, Intravenous, CONTINUOUS, Starting on Sat02/27/22 at 1345, Until Sat02/27/22 at 2144, Recovery (Recovery-Hospital Unit) spironolactone (Aldactone) tablet 12.5 m g Given 02/28/2022 8:51 AM EDT 12.5 mg 12.5 mg, Oral, DAILY, First dose on Tamar 02/22/22 at 0900, Until Discontinued, DO NOT SPLIT, CRUSH OR OPEN, Routine Given 02/26/2022 8:17 AM EDT 12.5 mg Given 02/25/2022 8:51 AM EDT 12.5 mg thiamine (Vitamin B1) tablet 100 mg Given 02/28/2022 8:52 AM EDT 100 mg 100 mg, Oral, DAILY, First dose on Sat02/21/22 at 0900, Until Discontinued, Routine Given 02/26/2022 8:17 AM EDT 100 mg Given 02/25/2022 8:50 AM EDT 100 mg traMADoL (Ultram) tablet 50 mg Given 02/24/2022 5:35 AM EDT 50 mg 50 mg, Oral, ONCE, 1 dose, On 02/24/22 at 0630, Routine documented in this encounter Active and Recently Administered Medications Times are shown in EDT. Scheduled Medication Order 02/26/2022 02/27/2022 02/28/2022 aspirin EC tablet 81 mg 0819 (Given - Provider: Rebeca cortes RN) 0810 (MAR Hold - Provider: Admin Adt - Reason: Transfer to a Procedural area)0900 (Automatically Held - Provider: Admin Adt)1550 (MAR Unhold - Provider: Admin Adt) 0852 (Given - Provider: Jamaica Lockwood RN) 81 mg, Oral, DAILY, First dose on 05/07 at 0900, Until Discontinued, Routine atorvastatin (Lipitor) tablet 40 mg 1716 (Given - Prov ider: Rebeca Olivares RN) 0810 (MAR Hold - Provider: Admin Adt - R andrea: Transfer to a Procedural area)1550 (MAR Unhold - Provider: Admin Adt)1627 (Given - Provider: Effie Julio RN) 40 mg, Oral, EVERY EVENING, First dose o n Sat02/20/22 at 2230, Until Discontinued, Routine clopidogreL (Plavix) tablet 75 mg 0818 (Given - Provid er: Rebeca Olivares RN) 0810 ([facility] Hold - Provider: Admin Adt - R andrea: Transfer to a Procedural area)0900 (Automatically Held - Provider: Admin Adt)1550 ([facility] Unhold - Provider: Admin Adt) 0852 (Given - Provider: Jamaica Lockwood RN) 75 mg, Oral, DAILY, First dose on 07/07 at 1345, Until Discontinued, Routine doxycycline monohydrate (Monodox) capsule 200 mg (COMPLETED) 0852 (Given - Provider: Jamaica Lockwood RN) 200 mg, Oral, ONCE, 1 dose, On Sat02/28/22 at 0800, Routine escitalopram (Lexapro) tablet 10 mg 0819 (Given - Prov ider: Rebeca Olivares RN) 08 ([facility] Hold - Provider: Admin Adt - R andrea: Transfer to a Procedural area)0900 (Automatically Held - Provider: Admin Adt)1550 ([facility] Unhold - Provider: Admin Adt) 0851 (Given - Provider: Jamaica Lockwood RN) 10 mg, Oral, DAILY, First dose on 05/07 at 0900, Until Discontinued, Routine folic acid (Folvite) tablet 1,000 mcg 0818 (Given - Pr ovider: Rebeca Olivares RN) 0810 ([facility] Hold - Provider: Admin Adt - R andrea: Transfer to a Procedural area)0900 (Automatically Held - Provider: Admin Adt)1550 ([facility] Unhold - Provider: Admin Adt) 0852 (Given - Provider: Jamaica Lockwood RN) 1,000 mcg, Oral, DAILY, First dose on 02/21/22 at 0900, Until Discontinued, Routine furosemide (Lasix) tablet 20 mg 0818 (Given - Provider: Unique Olivares RN) 0810 ([facility] Hold - Provider: Admin Adt - Reason: Transfer to a Procedural area)0900 (Automatically Held - Provider: Admin Adt)1550 ([facility] Unhold - Provider: Admin Adt) 0852 (Given - Provider: Jamaica Lockwood RN) 20 mg, Oral, DAILY, First dose on 05/07 at 0930, Until Discontinued, Routine gabapentin (Neurontin) capsule 300 mg 0817 (Given - Pr ovider: Rebeca Olivares RN)1523 (Given - Provider: Rebeca Olivares RN)203 (Given - Provider: Bria Eaton RN) 0810 (MAR Hold - Provider: Admin Adt - R andrea: Transfer to a Procedural area)0900 (Automatically Held - Provider: Admin Adt)1500 (Automatically Held - Provider: Admin Adt)1550 ([facility] Unhold - Provider: Admin Adt) 0852 (Given - Provider: Jamaica Lockwood RN)1448 (Given - Provider: Jamaica Lockwood RN) 300 mg, Oral, 3 TIMES DAILY, First dose on Sat02/20/22 at 2230, Until Discontinued, Routine 1602 (Given - Provider: Rubio Zamarripa RN)2135 (Given - Provider: Bria Eaton RN) heparin (porcine) (5,000 units/1 mL) subcutaneous inje ction 5,000 Units 0816 (Given - Provider: Rebeca Olivares RN)2037 (Given - Provider: Bria Eaton, LONA) 0810 ([facility] Hold - Provider: Admin Adt - R andrea: Transfer to a Procedural area)0900 (Automatically Held - Provider: Admin Adt)1550 ([facility] Unhold - Provider: Admin Adt)2135 (Given - Provider: Bria Eaton RN) 0859 (Given - Provider: Jamaica Lockwood RN) 5,000 Units, Subcutaneous, EVERY 12 HOUR S SCHEDULED (2 times per day), First dose on Sat02/24/22 at 2100, Until Discontinued, Routine insulin glargine-ygfn (Semglee) (100 uni t/mL) subcutaneous injection vial 10 Units 2157 (Given - Provider: Bria Eaton, LONA) 0810 ([facility] Hold - Provider: Admin Adt - Reason: Transfer to a Procedural area)1550 ([facility] Unhold - Provider: Admin Adt)213 (Given - Provider: Bria Eaton, LONA) 10 Units, Subcutaneous, NIGHTLY, First d ose on Sat02/23/22 at 2100, Until Discontinued, Routine insulin lispro (HumaLOG;Admelog) (100 un it/mL) subcutaneous injection vial 0-8 Units 0800 (Not Given - Provider: Rebeca cortes RN - Reason: NPO)1200 (Not Given - Provider: Rebeca Olivares RN - Reason: NPO)1524 (Given - Provider: Rebeca Olivares RN)1718 (Given - Provider: Rebeca Olivares RN) 0800 (Not Given - Provider: Effie Julio RN - Reason: NPO - 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)0810 (NOV Hold - Provider: Admin Adt - Reason: Transfer to a Procedural area)1130 (Automatically Held - Provider: Admin Adt) 1-4 Units, Subcutaneous, 4 TIMES DAILY B EFORE MEALS & NIGHTLY, First dose (after last modification) on Sat02/23/22 at 1130, Until Discontinued, Moderate BG 140 - 160 Give 2 units BG 161 - 200 Give 4 2158 (Given - Provider: Bria Eaton RN) 1550 (NOV Unhold - Provider: Admin Adt) units BG 201 - 240 Give [address] than 240, give 8 units every 2 hours until BG less than 240 (no more than three times) & call for new basal insulin orders, Routine insulin lispro (HumaLOG;Admelog) (100 un it/mL) subcutaneous injection vial 2-8 Units(Linked Group 1) 1627 (Given - Provider: Rubio Zamarripa RN)2134 (Given - Provider: Bria Eaton RN) 0857 (Given - Provider: Jamaica Lockwood RN - Comment: bg 160)1147 (Given - Provider: Jamaica Lockwood RN - Comment: bg 179) 2-8 Units, Subcutaneous, 4 TIMES DAILY B EFORE MEALS & NIGHTLY, First dose (after last modification) on Sat02/27/22 at 1630, Until Discontinued, Moderate BG 140 - 160 Give 2 units BG 161 - 200 Give 4 units BG 201 - 240 Give [address] than 240, give 8 units every 2 hours until BG less than 240 (no more than three times) & call for new basal insulin orders, Routine lidocaine (Lidoderm) 5% patch 1 patch(Linked Group 2) 2036 (Patch Applied - Provider: Bria Eaton RN) 0810 (NOV Hold - Provider: Admin Adt - R andrea: Transfer to a Procedural area)1550 (NOV Unhold - Provider: Admin Adt)2100 (Not Given - Provider: Bria Eaton RN - Reason: Patient/family refused) 1 patch, Transdermal, EVERY 24 HOURS, Fi rst dose on Sat02/26/22 at 2100, Until Discontinued, Apply patch(es) for 12 hours, and then remove for 12 hours., Routine lidocaine (Lidoderm) topical patch REMOVAL(Linked Group 2) 0810 (NOV Hold - Provider: Admin Adt - Reason: Transfer to a Procedural area)0900 (Automatically Held - Provider: Admin Adt)1550 (NOV Unhold - Provider: Admin Adt) 0900 (Patch Removed - Provider: Jamaica Lockwood RN) Transdermal, EVERY 24 HOURS, First dose on Sat02/27/22 at 0900, Until Discontinued, Remove lidocaine 5% patch losartan (Cozaar) tablet 50 mg 0819 (Given - Provider: Lou Olivares RN) 0810 (NOV Hold - Provider: Admin Adt - Reason: Transfer to a Procedural area)0900 (Automatically Held - Provider: Admin Adt)1550 (NOV Unhold - Provider: Admin Adt) 0852 (Given - Provider: Jamaica Lockwood RN) 50 mg, Oral, DAILY, First dose on 05/07 at 0900, Until Discontinued, Routine metoprolol tartrate (Lopressor) tablet 25 mg 0535 (Giv en - Provider: Carmina Castillo RN)1203 (Given - Provider: Rebeca Olivares RN)1716 (Given - Provider: Rebeca Olivares RN)2356 (Given - Provider: Bria Eaton, LONA) 0638 (Given - Provider: Bria Eaton, LONA)0810 ([facility] Hold - Provider: Admin Adt - Reason: Transfer to a Procedural area)1200 (Automatically Held - Provider: Admin Adt)1550 ([facility] Unhold - Provider: Admin Adt)1736 (Given - Provider: Effie Julio RN) 0017 (Given - Provider: Bria Eaton, LONA)0637 (Given - Provider: Bria Eaton RN)1147 (Given - Provider: Jamaica Lockwood RN) 25 mg, Oral, EVERY 6 HOURS SCHEDULED, Fi rst dose (after last modification) on Sat02/22/22 at 1200, Until Discontinued, Hold for SBP <90 or HR <60, Routine multivitamin with minerals (Thera M) tablet 1 tablet 0 819 (Given - Provider: Rebeca Olivares RN) 0810 ([facility] Hold - Provider: Admin Adt - R andrea: Transfer to a Procedural area)0900 (Automatically Held - Provider: Admin Adt)1550 ([facility] Unhold - Provider: Admin Adt) 1146 (Given - Provider: Jamaica Lockwood RN) 1 tablet, Oral, DAILY, First dose on Sat02/21/22 at 0900, Until Discontinued, Routine pantoprazole EC (Protonix) tablet 40 mg 0818 (Given - Provider: Rebeca Olivares RN) 0810 ([facility] Hold - Provider: Admin Adt - R andrea: Transfer to a Procedural area)0900 (Automatically Held - Provider: Admin Adt)1550 ([facility] Unhold - Provider: Admin Adt) 0852 (Given - Provider: Jamaica Lockwood RN) 40 mg, Oral, DAILY, First dose (after la st modification) on Sat02/21/22 at 0900, Until Discontinued, DO NOT CRUSH OR OPEN senna-docusate (Pericolace) 8.6-50 mg per tablet 2 tab let 1914 (Given - Provider: Rebeca Olivares, RN) 0810 ([facility] Hold - Provider: Admin Adt - R andrea: Transfer to a Procedural area)0900 (Automatically Held - Provider: Admin Adt)1550 ([facility] Unhold - Provider: Admin Adt) 0900 (Not Given - Provider: Jamaica Lockwood, RN - Reason: Patient/family refused) 2 tablet, Oral, DAILY, First dose on Sat02/26/22 at 1800, Until Discontinued, Routine sodium chloride 0.9 % (flush) (BD PosiFlush Normal Jose ine 0.9) flush 5 mL 0823 (Given - Provider: Rebeca Olivares RN)2158 (Given - Provider: Bria Eaton, LONA) 0810 ([facility] Hold - Provider: Admin Adt - R andrea: Transfer to a Procedural area)09 (Automatically Held - Provider: Admin Adt)1550 ([facility] Unhold - Provider: Admin Adt)2136 (Given - Provider: Bria Eaton, LONA) 0841 (Given - Provider: Jamaica Lockwood, RN) 5 mL, Intravenous, 2 TIMES DAILY, First dose on Sat02/20/22 at 2230, Until Discontinued, Routine spironolactone (Aldactone) tablet 12.5 mg 0817 (Given - Provider: Rebeca Olivares RN) 0810 ([facility] Hold - Provider: Admin Adt - R andrea: Transfer to a Procedural area)0900 (Automatically Held - Provider: Admin Adt)1550 ([facility] Unhold - Provider: Admin Adt) 0851 (Given - Provider: Jamaica Lockwood, RN) 12.5 mg, Oral, DAILY, First dose on Sat02/22/22 at 0900, Until Discontinued, DO NOT SPLIT, CRUSH OR OPEN, Routine thiamine (Vitamin B1) tablet 100 mg 0817 (Given - Prov ider: Rebeca Olivares RN) 0810 ([facility] Hold - Provider: Admin Adt - R andrea: Transfer to a Procedural area)0900 (Automatically Held - Provider: Admin Adt)1550 ([facility] Unhold - Provider: Admin Adt) 0852 (Given - Provider: Jamaica Lockwood, LONA) 100 mg, Oral, DAILY, First dose on Sat at 0900, Until Discontinued, Routine Continuous Medication Order 02/26/2022 02/27/2022 02/28/2022 sodium chloride 0.9% infusion () 1510 (New Bag - Provider: Chantell Eaton, LONA) 100 mL/hr, Intravenous, CONTINUOUS, Star ting on Sat02/27/22 at 1345, Until Sat02/27/22 at 2144, Recovery (Recovery-Hospital Unit) PRN Medication Order 02/26/2022 02/27/2022 02/28/2022 acetaminophen (Tylenol) tablet 650 mg 0535 (Given - Pr ovider: Carmina Castillo RN)1916 (Given - Provider: Rebeca Olivares RN) 0810 (NOV Hold - Provider: Admin Adt - Reason: Transfer to a Procedural area)1550 (NOV Unhold - Provider: Admin Adt)1707 (Given - Provider: Effie Julio, LONA)2135 (Given - Provider: Bria Eaton, LONA) 650 mg, Oral, EVERY 4 HOURS PRN, Startin g on Sat02/20/22 at 2137, Until Sat02/28/22 at 1723, Pain, Headaches, Maximum dose of acetaminophen is 4000 mg from all sources in 24 hours. When ordered for pain, acetaminophen should be given even when other ordered pain medications are indicated. , Routine aspirin chewable tablet (CANCELED) 0822 (Given - Provider: Hadley Morales, LONA) ONCE PRN, Starting on Sat02/27/22 at 082 2, Until Sat02/27/22 at 1550, Cath (Intra-Procedure), Routine atropine (0.1 mg/mL) injection (CANCELED) 1300 (Given - Provider: Jarad Gallegos) ONCE PRN, Starting on Sat02/27/22 at 130 0, Until Sat02/27/22 at 1550, Cath (Intra-Procedure), Routine clopidogreL (Plavix) tablet (CANCELED) 1119 (Giv en - Provider: Jarad Gallegos) ONCE PRN, Starting on Sat02/27/22 at 111 9, Until Sat02/27/22 at 1550, Intra- Operative (Intra-Procedure), Routine dextrose 10% infusion(Linked Group 3) 08 10 (NOV Hold - Provider: Admin Adt - Reason: Transfer to a Procedural area)1550 (NOV Unhold - Provider: Admin Adt) 250 mL, at 1,000 mL/hr, Intravenous, GONZALO RY 30 MIN PRN, Starting on Sat02/20/22 at 2137, Until Sat02/28/22 at 1723, For BG 50-70 mg/dL: Oral treatment preferred: [...] m assaged in buccal mucosa OR if unconscio us or uncooperative, give 25 gram (250 mL) Dextrose 10% IV over 15 minutes per protocol OR, if no IV access, 1 mg Glucagon IM. Recheck BG in 30 minutes. May rep eat juice/soda, gel, dextrose or glucago n once per episode. For persistent hypoglycemia, consider longer-acting treatment for the duration of the active insulin. eptifibatide (Integrilin) (0.75 mg/mL) IV infusion (CANCELED ) 1014 (New Bag - Provider: Hadley Morales RN)1500 (Stopped - Provider: Chantell Eaton RN - Comment: aware) CONTINUOUS PRN, Starting on Sat02/27/22 at 1014, Until Sat02/27/22 at 1550, Cath (Intra-Procedure) eptifibatide (Integrilin) (2 mg/mL) IV injection (CANCELED) 1011 (Given - Provider: Hadley Morales RN)1025 (Given - Provider: Hadley Morales, LONA) ONCE PRN, Starting on Sat02/27/22 at 101 1, Until Sat02/27/22 at 1550, Cath (Intra-Procedure), Routine fentaNYL (pf) (50 mcg/mL) multi-dose injection (CANCELED) 0822 (Given - Provider: Hadley Morales RN)0835 (Given - Provider: Hadley Morales RN)0913 (Given - Provider: Hadley Morales RN)1010 (Given - Provider: Hadley Morales, LONA)1057 (Given - Provider: Hadley Morales RN) ONCE PRN, Starting on Sat02/27/22 at 082 2, Until Sat02/27/22 at 1550, Cath (Intra-Procedure), Routine 1122 (Given - Provider: Hadley Morales RN) glucagon (Glucagen) (1 mg/mL) injection solution 1 mg(Linked Group 3) 0810 (NOV Hold - Provider: Admin Adt - Reason: Transfer to a Procedural area)1550 (NOV Unhold - Provider: Admin Adt) 1 mg, Intramuscular, EVERY 30 MIN PRN, S tarting on Sat02/20/22 at 2137, Until Sat02/28/22 at 1723, Low blood sugar, For BG 50-70 mg/dL: Oral treatment preferred: If able to drink, give 120 mL Juice or Regular (not diet) soda OR If NPO, give 15 gram glucose 40% oral gel massaged into buccal mucosa OR if unconscious or uncooperative, give 25 gram (250 mL) Dextrose 10% IV over 15 minutes per protocol O R, if no IV access, 1 mg Glucagon IM. For BG less than 50 mg/dL: Oral treatment preferred: If able to drink, give 240 mL Juice or Regular (not diet) soda OR If NPO, give 30 gram glucose 40% oral gel massaged in buccal mucosa OR if unconsci ous or uncooperative, give 25 gram (250 mL) Dextrose 10% IV over 15 minutes per protocol OR, if no IV access, 1 mg Glucagon IM. Recheck BG in 30 minutes. May re peat juice/soda, gel, dextrose or glucag on once per episode. For persistent hypoglycemia, consider longer-acting treatment for the duration of the active insulin., Routine glucose (Glutose) 40% oral geL(Linked Group 3) 0810 (NOV Hold - Provider: Admin Adt - Reason: Transfer to a Procedural area)1550 (MAR Unhold - Provider: Admin Adt) 15-30 g of glucose, Buccal, EVERY 30 MIN PRN, Starting on Sat02/20/22 at 2137, Until Sat02/28/22 at 1723, Low blood sugar, For BG 50-70 mg/dL: Oral treatment preferred: If able to drink, give 120 mL J uice or Regular (not diet) soda OR If DOUBLE NEEDLE STITCHER O, give 15 gram glucose 40% oral gel massaged into buccal mucosa OR if unconscious or uncooperative, give 25 gram (250 mL) Dextrose 10% IV over 15 minutes per pro tocol OR, if no IV access, 1 mg Glucagon IM. For BG less than 50 mg/dL: Oral treatment preferred: If able to drink, give 240 mL Juice or Regular (not diet) soda OR If NPO, give 30 gram glucose 40% or al gel massaged in buccal mucosa OR if u nconscious or uncooperative, give 25 gram (250 mL) [...] weight of tube = 37.5 grams.), Routine heparin (porcine) (1,000 units/mL) injection (CANCELED) 0849 (Given - Provider: Hadley Morales RN)0905 (Given - Provider: Hadley Morales RN)1026 (Given - Provider: Hadley Morales RN)1150 (Given - Provider: Hadley Morales RN) ONCE PRN, Starting on Sat02/27/22 at 084 9, Until Sat02/27/22 at 1550, Cath (Intra-Procedure), Routine iohexoL (Omnipaque) (350 mg/mL) solution (CANCELED) 1315 (Given - Provider: Jose Luis Lopez MD) ONCE PRN, Starting on Sat02/27/22 at 131 5, Until Sat02/27/22 at 1550, Cath (Intra-Procedure), Routine lidocaine (Xylocaine) 1% (10 mg/mL) injection 3 mg 0810 (NOV Hold - Provider: Admin Adt - Reason: Transfer to a Procedural area)1550 (NOV Unhold - Provider: Admin Adt) 3 mg (0.3 mL), Subcutaneous, ONCE PRN, 1 dose, Starting on Sat02/20/22 at 2137, Until Sat02/28/22 at 1723, for discomfort with PIV insertion, Routine LORazepam (Ativan) tablet 1 mg 2254 (Given - Provider: Bria Eaton, LONA) 0810 (NOV Hold - Provider: Admin Adt - Reason: Transfer to a Procedural area)155 (NOV Unhold - Provider: Admin Adt)2135 (Given - Provider: Bria Eaton RN) 1 mg, Oral, EVERY 4 HOURS PRN, Starting on Sat02/20/22 at 2221, Until Sat02/28/22 at 1723, Anxiety, Withdrawal, Routine midazolam (pf) (Versed) (1 mg/mL) multi-dose injection (CANC ELED) 0823 (Given - Provider: Hadley Morales RN)0835 (Given - Provider: Hadley Morales RN)0913 (Given - Provider: Hadley Morales RN)1010 (Given - Provider: Hadley Morales, LONA)1058 (Given - Provider: Hadley Morales RN) ONCE PRN, Starting on Sat02/27/22 at 082 3, Until Sat02/27/22 at 1550, Cath (Intra-Procedure), Routine 1122 (Given - Provider: Hadley Morales RN) nitroGLYcerin (Nitrostat) disintegrating tablet 0.4 mg 0810 (NOV Hold - Provider: Admin Adt - Reason: Transfer to a Procedural area)1550 ([facility] Unhold - Provider: Admin Adt) 0.4 mg, Sublingual, EVERY 5 MIN PRN, Sta rting on Sat02/20/22 at 2137, Until Sat02/28/22 at 1723, Chest pain, May repeat every 5 minutes for a total of three doses. Notify provider if chest pain not relie xu with nitroglycerin. Do not administe r nitroglycerin if the patient has received or taken phosphodiesterase (PDE-5) inhibitors such as sildenafil, tadalafil or vardenafil within the last 24 to 72 hours., Routine nitroGLYcerin (Nitrostat) disintegrating tablet 0.4 mg 0.4 mg, Sublingual, EVERY 5 MIN PRN, Sta rting on Sat02/27/22 at 1324, Until Sat02/28/22 at 1723, Chest pain, May repeat every 5 minutes for a total of three doses. Notify provider if chest pain not reli eved with nitroglycerin. Do not administ er nitroglycerin if the patient has received or taken phosphodiesterase (PDE-5) inhibitors such as sildenafil, tadalafil or vardenafil within the last 24 to 72 hours., Recovery (Recovery- Hospital Unit), Routine perflutren lipid microspheres (Definity) injection 0.5 mL (COMPLETED) 0750 (Given - Provider: Mary Grant) 0.5 mL, Intravenous, ONCE PRN, 1 dose, S tarting on Sat02/26/22 at 0750, Until Sat02/26/22 at 0750, Other, for enhancement of sub-optimal echo images, Echo Lab (Intra-Procedure), Routine polyethylene glycoL (Miralax) packet 17 g 0810 (NOV Hold - Provider: Admin Adt - Reason: Transfer to a Procedural area)1550 ([facility] Unhold - Provider: Admin Adt) 17 g, Oral, DAILY PRN, Starting on Sat at 1700, Until Sat02/28/22 at 1723, Constipation, Routine protamine (10 mg/mL) injection (CANCELED) 1251 (Given - Provider: Jarad Gallegos) ONCE PRN, Starting on Sat02/27/22 at 125 1, Until Sat02/27/22 at 1550, Cath (Intra-Procedure), Routine sodium chloride 0.9 % (flush) (BD PosiFlush Normal Saline 0. 9) flush 5-20 mL 0810 (NOV Hold - Provider: Admin Adt - Reason: Transfer to a Procedural area)1550 ([facility] Unhold - Provider: Admin Adt) 5-20 mL, Intravenous, EVERY 1 MIN PRN, S tarting on Sat02/20/22 at 2137, Until Sat02/28/22 at 1723, flush, Flush pertains to all indwelling lines. Flush per protocol found in the job aid using the link provided on this medication record., Routine Linked Groups Order Group 1: POCT Fingerstick Glucose (CANCELED) Routine, 4 TIMES DAILY BEFORE MEALS & AT BEDTIME, First occurrence on Sat02/27/22 at 1700, Until Specified
Consider choosing FOUR TIMES A DAY BEFORE MEALS AND AT BEDTIME as frequency fo r: Patients who have good hypoglycemia a wareness: -Patients who are eating meals during the day and sleeping at night -Patient who are otherwise stable And insulin lispro (HumaLOG;Admelog) (100 unit/mL) subcutaneous injection vial 2-8 UnitsJump to med 2-8 Units, Subcutaneous, 4 TIMES DAILY B EFORE MEALS & NIGHTLY, First dose (after last modification) on Sat02/27/22 at 1630, Until Discontinued
Moderate BG 140 - 160 &a mp;nbsp;Give 2 units BG 161 - 200&n bsp; Give 4 units BG 201 - 240 Give 6 units BG greater than 240, give 8 units every 2 hours until BG less t acuna 240 (no more than three times) & [place] for new basal insulin orders
Routine Group 2: lidocaine (Lidoderm) 5% patch 1 patchJump to med 1 patch, Transdermal, EVERY 24 HOURS, Fi rst dose on Sat02/26/22 at 2100, Until Discontinued
Apply patch(es) for 12 hours, and then remove for 12 hours.
Routine And lidocaine (Lidoderm) topical patch REMOVALJump to med Transdermal, EVERY 24 HOURS, First dose on Sat02/27/22 at 0900, Until Discontinued
Remove lidocaine 5% patch
Group 3: glucose (Glutose) 40% oral geLJump to med 15-30 g of glucose, Buccal, EVERY 30 MIN PRN, Starting on Sat02/20/22 at 2137, Until Sat02/28/22 at 1723, Low blood sugar
For BG 50-70 mg/dL: &nbsp ;Oral treatment preferred: If able to dr ink, give 120 mL Juice or Regular (not diet) soda OR If NPO, give 15 gram glucose 40% oral gel massaged into buccal mucosa OR if unconscious or uncooperative, giv e 25 gram (250 mL) Dextrose 10% IV over 15 minutes per protocol OR, if no IV access, 1 mg Glucagon IM. For BG less than 50 mg/dL: Oral treatment pref erred: If able to drink, give 240 mL Jui ce or Regular (not diet) soda OR If NPO, give 30 gram glucose 40% oral gel massaged in buccal mucosa OR if unconscious or uncooperative, give 25 gram (250 mL) Dex trose 10% IV over 15 minutes per protoco l OR, if no IV access, 1 mg Glucagon IM. Recheck BG in 30 minutes. May repeat juice/soda, gel, dextrose or glucagon once per episode.&nbs p; For persistent hypoglycemia, consider longer-acting treatment for the duration of the active insulin. 1 tube of Glutose-15 contains 15 grams of glucose (net weight of tube = 37.5 grams.)
Routine Or dextrose 10% infusionJump to med 250 mL, at 1,000 mL/hr, Intravenous, GONZALO RY 30 MIN PRN, Starting on Sat02/20/22 at 2137, Until Sat02/28/22 at 1723
For BG 50-70 mg/dL: Oral tr eatment preferred: If able to drink, giv e 120 mL Juice or Regular (not diet) soda OR If NPO, give 15 gram glucose 40% oral gel massaged into buccal mucosa OR if unconscious or uncooperative, give 25 gra m (250 mL) Dextrose 10% IV over 15 minut es per protocol OR, if no IV access, 1 mg Glucagon IM. For BG less than 50 mg/dL: Oral treatment preferred: I f able to drink, give 240 mL Juice or Re gular (not diet) soda OR If NPO, give 30 gram glucose 40% oral gel massaged in buccal mucosa OR if unconscious or uncooperative, give 25 gram (250 mL) Dextrose 10 % IV over 15 minutes per protocol OR, if no IV access, 1 mg Glucagon IM. Recheck BG in 30 minutes. May repeat juice/soda, gel, dextrose or glucagon once per episode. &n bsp; For persistent hypoglycemia, cons ider longer-acting treatment for the duration of the active insulin.
Or glucagon (Glucagen) (1 mg/mL) injection solution 1 mgJump to med 1 mg, Intramuscular, EVERY 30 MIN PRN, S tarting on Sat02/20/22 at 2137, Until Sat02/28/22 at 1723, Low blood sugar
For BG 50-70 mg/dL: Oral t reatment preferred: If able to drink, gi ve 120 mL Juice or Regular (not diet) soda OR If NPO, give 15 gram glucose 40% oral gel massaged into buccal mucosa OR if unconscious or uncooperative, give 25 gr am (250 mL) Dextrose 10% IV over 15 uzma rober per protocol OR, if no IV access, 1 mg Glucagon IM. For BG less than 50 mg/dL: Oral treatment preferred: If able to drink, give 240 mL Juice or R egular (not diet) soda OR If NPO, give 30 gram glucose 40% oral gel massaged in buccal mucosa OR if unconscious or uncooperative, give 25 gram (250 mL) Dextrose 1 0% IV over 15 minutes per protocol OR, i f no IV access, 1 mg Glucagon IM. Recheck BG in 30 minutes. May repeat juice/soda, gel, dextrose or glucagon once per episode. & nbsp; For persistent hypoglycemia, con passenger brakeman longer-acting treatment for the duration of the active insulin.
Routine documented in this encounter Care Teams Road Oiler Relationship Specialty Start Date End Date Navin Souza MD PCP - General Family Medicine 6/6/22 [address] [place] [address] documented as of this encounter
--- OUTSIDE RECORDS SUMMARY | 2022-08-22 10:00 | XMS_ITS | Encounter Summary ---
:1950 Author Organization [facility] [place] [address] Care Team Providers Name Role Phone Navin Souza MD Primary Care Provider Reason for Visit Reason Onset Date Comments Medication Refill 03/01/2022 Encounter Details Date Type Department Care Team Description 03/01/2022 Refill Cardiology at [facility] Ramirez Najera [place] [address] [phone] Cardiology [place] [id number] (Wo rk) Social History Tobacco Use Types Packs/Day Years Used Date Smoking Tobacco: Former Cigarettes Quit : 03/17/1986 Smokeless Tobacco: Never Alcohol Use Standard Drinks/Week Comments Yes 0 (1 standard drink = 0.6 oz pure alcoho l) Sex Assigned at Date Recorded Not on file documented as of this encounter Plan of Treatment Not on filedocumented as of this encounter Visit Diagnoses Diagnosis Acute systolic congestive heart failure - Primary Acute systolic heart failure documented in this encounter Care Teams Photographic Process Attendant Relationship Specialty Start Date End Date Navin Souza MD PCP - General Family Medicine 02/19/22 [address] [place], [place] [id number] documented as of this encounter
--- OUTSIDE RECORDS SUMMARY | 2022-08-22 10:00 | XMS_ITS | Encounter Summary ---
:1950 [place] [address] Care Team Providers Name Role Phone Navin Souza MD Primary Care Provider Encounter Details Date Type Department Care Team Description 04/08/2022 Ancillary Procedure Radiology Library at [place] [address] [place] [address] [phone] Social History Tobacco Use Types Packs/Day Years [...] Name Priority Date/Time Associated Diagnosis Comme nts FILM LIBRARY Routine 04/08/2022 10:58 PM Results for this STORAGE ONLY CT EDT procedure ar e in ABDOMEN AND PELVIS the resul ts section. documented in this encounter Results Film Library- Storage Only CT Abdomen & Pelvis (04/08/2022 10:58 PM EDT) Specimen (Source) Anatomical Location Collection Method / Collectio n Time Received Time / Laterality Volume Narrative [facility] - 04/08/2022 10:58 PM EDT This exam is auto-finalizing. It's purpo se is for storage only. Nam Campoverde MD IMG FILM LIBRARY ORDERABLES Performing Organization Address City/State/ZIP Code Phon e Number [facility] [place], [place] documented in this encounter Visit Diagnoses Not on filedocumented in this encounter Care Teams Crossband Layer Relationship Specialty Start Date End Date Navin Souza MD PCP - General Family Medicine 02/19/22 [address] [place] [address] documented as of this encounter
--- OUTSIDE RECORDS SUMMARY | 2022-08-22 10:00 | XMS_ITS | Encounter Summary ---
:1950 Author Organization [facility] [place] [address] Care Team Providers Name Role Phone Navin Souza MD Primary Care Provider Encounter Details Date Type Department Care Team Description 03/02/2022 Telephone Cardiology at [facility] Alex Lal, [place] [address] Social History Tobacco Use Types Packs/Day Years Used Date Smoking Tobacco: Former Cigarettes Quit : 03/17/1986 Smokeless Tobacco: Never Alcohol Use Standard Drinks/Week Comments Yes 0 (1 standard drink = 0.6 oz pure alcoho l) Sex Assigned at Date Recorded Not on file documented as of this encounter Miscellaneous Notes Telephone Encounter - Alex Lal RN - 03/02/2022 4:16 PM EDT Appreciate call from Mr. Pendleton. Pleasant connection. Seeking promised letter for return to work. Reviewed discharge summary dated 02/28/2022 - including instructions contained therein (copied below): Return to work: One week Driving: No driving for 48 hours after cath Patient will hand carry his discharge instructions to his employer (at his preference) next week andsee if this is sufficient to meet his employer's requirements. Commits to calling this office with any need, concern, or question. Voiced appreciation for today's timely return call and Nurse review. Mainor Lal RNrefrigeration lead Team Nurse [facility] documented in this encounter Plan of Treatment Not on filedocumented as of this encounter Visit Diagnoses Not on filedocumented in this encounter Care Teams Family Dinner Service Specialist Relationship Specialty Start Date End Date Navin Souza MD PCP - General Family Medicine 02/19/22 [address] [place] [address] documented as of this encounter
--- OUTSIDE RECORDS SUMMARY | 2022-08-22 10:00 | XMS_ITS | Encounter Summary ---
:1950 Author Organization [facility] [place] [address] Care Team Providers Name Role Phone Navin Souza MD Primary Care Provider Reason for Referral Diagnostic Test (Routine) - Closed Specialty Diagnoses / Procedures Referred By Contact Refer red To Contact Radiology Diagnoses Cholecystitis Agustin Monae MD [facility] Interventionl Rad Procedures IR Biliary Tube Check/Change/Remove [facility] [place] [address] [place] [address] Referral ID Status Reason Start Date Expiration Date Visits V isits Requested Authorized [id number] Closed Specialty 04/11/2022 10/12/2023 1 1 Service Requested Reason for Visit Auth/Cert Specialty Diagnoses / Procedures Referred By Contact Refer red To Contact Diagnoses Cholecystitis cholecystitis [place] [address] Referral ID Status Reason Start Date Expiration Date Visits Requ ested Visits Authorized [id number] 1 1 Encounter Details Date Type Department Care Team Description 04/09/2022 - Hospital Encounter 4 Arabella Lewis MD [facility] [place] [address] Cholecystitis; 04/11/2022 [facility] Lois Metz MD [facility] [place] [address] Acute systolic congestive heart failure [facility] [place] [address] Social History Tobacco Use Types Packs/Day Years Used Date Smoking Tobacco: Former Cigarettes Quit : 03/17/1986 Smokeless Tobacco: Never Alcohol Use Standard Drinks/Week Comments Yes 0 (1 standard drink = 0.6 oz pure alcoho l) Sex Assigned at Date Recorded Not on file documented as of this encounter Last Filed Vital Signs Vital Sign Reading Time Taken Comments Blood Pressure 129/80 04/11/2022 11:25 AM EDT Pulse 78 04/10/2022 1:35 PM EDT Temperature 36.8 ??C (98.2 ??F) 04/11/2022 11:25 AM EDT Respiratory Rate 16 04/11/2022 11:25 AM EDT Oxygen Saturation 95% 04/11/2022 11:25 AM EDT Inhaled Oxygen Concentration - - Weight 106.4 kg (234 lb 9.1 oz) 04/11/2022 4:25 AM EDT Height 193 cm (6' 3.98) 04/09/2022 11:00 AM EDT Body Mass Index 28.56 04/09/2022 11:00 AM EDT documented in this encounter Discharge Summaries Lois Metz MD - 04/11/2022 1:31 PM EDT Images from the original note were not included. General Surgery Discharge Summary Name: Gillian Branch Date of : 1950 Attending: ARABELLA HEREDIA ALEXANDRA Date of Admission: 04/09/2022 Date of Discharge: 04/11/22 Reason for admission: Post operative care following: History of Present Illness (from Dr. King's H&P on 04/09/2022): Gillian Branch is a 72 y.o. male with PMH of DM, HTN, GERD and anxiety??with recent NSTEMI (02/19/2022) treated with PCI now on ASA and plavix lifelong and new HFrEF (LVEF 17% on last echo) who presented to an OSH initially on 04/08/22 with concern of an acute coronary problem as he had epigastric pain that was unrelieved with nitroglycerin. While at the OSH, his pain radiated to his RUQ and he became febrile. There he underwent CT scan which was concerning for acute cholecystitis. Given his recent cardiacevent and PCI he was transferred to [facility] for further care and evaluation. He did receive antibioticsat the outside institution but feels more tenderness in his RUQ this morning despite this. His last bowel movement was three days ago which is atypical for him. He last ate something at 12pm on 04/08. He denies any chest pain, shortness of breath, dizziness, fever, nausea or vomiting Hospital Course Patient was admitted to the acute care surgery service for further care of his acute cholecystitis. He was made NPO, started on zosyn and started on IVFs at a slow rate given his cardiac history. Cardiology was consulted in the setting of his recent stent placement with dual anti-platelet therapy (DAPT) and reduced ejection fraction. A repeat echocardiogram was performed and showed an LVEF of 45% with mild global hypokinesis. Given the patients cardiac history with recent stent placement and need for DAPT, cardiology favored a percutaneous cholecystostomy tube placement and to wait at least 3 months following stent placement prior to stopping DAPT. Interventional Radiology was consulted and placeda percutaneous cholecystostomy tube (PTC) on 04/10/2022 without complication. The patient was startedon a CLD following the procedure and continued on zosyn for antibiotics. The morning of 04/11/2022, the patient's white blood count had downtrended to 6.7 from 11.3 and antibiotics were stopped. Prior to discharge on 04/11/22 or hospital day 2, patient's pain was well controlled with oral pain medications, patient was voiding without difficulty, and PTC was appropriately draining. Patient was having regular bowel movements, and tolerating a Regular diet. Vitals were within normal limits and patient was determined medically ready for discharge to home. Of note, patient is leaving soon to go on a multi-week vacation to [place]. The patient understands how to flush his PCT drain and was given the supplies to do so. The patient understands that should his PCT stop flushing or have a significant change in the quality or quantity of the output, he becomesfeverish, has pain near the drain, experiences chest pain or shortness of breath that he should present to the nearest hospital. He knows to bring his discharge paperwork with him on his trip. We will arrange follow-up once he returns regarding gallbladder removal. Vital Signs Last value Range last 24hrs Temperature Temp: 36.8 ??C (98.2 ??F) Temp: [36.5 ??C (97.7 ??F)-37.3 ??C (99.1 ??F)] Heart Rate Heart Rate: 78 Heart Rate: [78] Blood Pressure BP: 129/80 BP: (119-129)/(58-80) Respiratory Rate Resp: 16 Resp: [16-20] SpO2 SpO2: 95 % SpO2: [93 %-98 %] Physical Exam: General: Resting comfortably in no acute distress, Alert and oriented x3 HEENT: Normocephalic, atraumatic CV: Regular rate Pulm: Normal work of breathing GI: Soft, nondistended, mildy tender to palpation in RUQ, no rebound tenderness or guarding, PTC in RUQ that is draining red serosanguinous output MSK: Warm and well-perfused, no peripheral edema Neuro: moving all four extremities spontaneously, no focal deficits noted ?? Pertinent Lab Data: Recent Labs 04/11/22 0613 04/10/22 1055 04/09/22 1123 WBC 6.7 11.3* 14.2* HGB 13.4* 13.5* 15.0 HCT 38.8* 39.0* 43.8 PLATELET 135* 145 129* Recent Labs 04/11/22 0613 04/10/22 1055 04/10/22 0605 04/09/22 1123 NA 134* -- 134* 136 K 3.6 3.5 Not Perf 4.3 CL 99 -- 96* 97* CO2 25 -- 26 26 BUN 15 -- 24* 24* CREATININE 0.63* -- 1.01 1.09 GLUCOSE 164 -- 124 178 CALCIUM 8.3* -- 8.6 8.6 MAGNESIUM 0.88 -- 0.91 0.78 PHOS 2.3* -- 2.2* 2.9 Medications: Your Medications UNREVIEWED medications - Discuss With Your Provider Dose Details aspirin EC 81 mg Tbec Take 1 tablet by mouth daily. 81 mg Quantity: 90 tablet Refills: 3 atorvastatin 80 mg Tab Commonly known as: Lipitor Take 1 tablet by mouth every evening. 80 mg Quantity: 90 tablet Refills: 3 Bydureon BCise 2 mg/0.85 mL Atin Generic drug: exenatide Refills: 0 clopidogreL 75 mg Tab Commonly known as: Plavix Take 1 tablet by mouth daily. 75 mg Quantity: 90 tablet Refills: 3 empagliflozin 10 mg Tab Commonly known as: Jardiance Take 1 tablet by mouth daily. 10 mg Quantity: 30 tablet Refills: 11 escitalopram 10 mg Tab Commonly known as: Lexapro Take 10 mg by mouth daily. 10 mg Refills: 0 furosemide 20 mg Tab Commonly known as: Lasix Take 1 tablet by mouth daily. 20 mg Quantity: 90 tablet Refills: 3 gabapentin 300 mg Cap Commonly known as: [...] by mouth daily. 50 mg Refills: 0 nitroGLYcerin 0.4 mg Subl Commonly known as: Nitrostat Place 1 tablet under the tongue every 5 minutes as needed for Chest pain. 0.4 mg Quantity: 30 tablet Refills: 0 RABEprazole 20 mg Tbec Commonly known as: ACIPHEX Take 20 mg by mouth daily. 20 mg Refills: 0 spironolactone 25 mg Tab Commonly known as: Aldactone Take 0.5 tablets by mouth daily. 12.5 mg Quantity: 90 tablet Refills: 1 Allergies: Allergies Allergen Reactions ??? Corticosteroids (Glucocorticoids) Rash Imaging: Echocardiogram Transthoracic Result Date: 04/09/2022 Echocardiogram Report Name: GILLIAN BRANCH Study Date: 04/09/2022 12:50 PMBP: 109/62 mmHg Patient Location: [facility]^408^A : 1950 Height: 193 cm Account: [id number] Age: 72 yrs Weight: 101 kg Gender: Male BSA: 2.3 m2 Ordering Physician: ARABELLA HEREDIA Referring Physician: VERONICA PURCELL Performed By: ABBY Dejesus Reason For Study: Acute systolic congestive heart failure Exam Location: [facility]. Interpretation Summary Limited study to assess LV function. The LV is moderately dilated with mildly reduced systolic function. The estimated LVEF is 45% with mild global hypokinesis. Normal RV size and function. There is no hemodynamically significant valvular disease. Impression: When compared to previous echocardiogram from 02/26/2022, there has been an improvement in global and regional LV systolic function. P rocedure Limited - 86604. Doppler - 77277. Color Doppler - 13300. Satisfactory quality. There is normal sinus rhythm. Left Ventricle Left ventricle is moderately dilated. A false tendon is identified. Left ventricular systolic function is moderately reduced. Left ventricular ejection fraction is estimated visually at 30% - 35%. Moderate global hypokinesis. Right Ventricle The right ventricle is of normal size. Right ventricular systolic function is normal. Aortic Valve There is no aortic stenosis. There is no aortic regurgitation. Mitral Valve There is no mitral stenosis. There is trace mitral regurgitation. Tricuspid Valve There is no tricuspid stenosis. There is trace tricuspid regurgitation. Pericardium/Pleural There is no pericardial effusion. Epicardial fat is present. Hemodynamics Pulmonaryartery hypertension could not be assessed due to inadequate tricuspid regurgitation jet. 2D Measurements Volumes TAPSE_phl: 1.8 cm EDV Biplane: 195.5 ml EDV Biplane Index: 84.3 ESV Biplane: 108.1 ml ESV Biplane Index: 46.6 I WMSI = 2.00 % Normal = 0 Segments Size X - Cannot 2 - 4 - 1-2 small Interpret1 - Normal Hypokinetic 3 - Akinetic Dyskinetic 3-5 moderate 5 - 6-14 large Aneurysmal 15-16 diffuse _ Cholecystostomy Tube Placement Result Date: 04/10/2022 R Procedure Note Procedure: Percutaneous cholecystostomy tube placement History/indication: 72 yr old M patient w/ diabetes, hypertension, and recent NSTEMI on 02/19 and new heart failure with EF of 17% status post PCI; now on aspirin and Plavix. Patient presented with right upper quadrant pain and fevers; CT demonstrated acute cholecystitis. He is referred for cholecystostomy catheter placement as an alternative to surgery. Technique: After obtaining informed consent, the RUQ was prepped and draped in a sterile fashion. 1% lidocaine was used as local anesthesia. The patient received split doses of intravenous fentanyl and versed from the IR nurse while pulse, pressure, end tidal CO2 parameters and oxygen saturation were continuously monitored. A 21 ga needle was directed toward the GB lumen under US guidance. There was the prompt return of thick, sanguinous green bile. A 0.018 wire was coiled in the gallbladder lumen under fluoroscopic guidance. Over a 0.035 Amplatz wire, an 8.5 Fr APD locking lo op drain was advanced. The locking loop was formed and the drain connected to bag drainage. The catheter was secured at the skin with a 2-0 nylon suture. Complications: None immediate; EBL=2 cc Medications: 1% lidocaine (<10 cc); versed 2 mg; fentanyl 100 mcg Contrast: 5 cc non-ionic/omnipaque Fluoroscopy time: 0.8 minutes Impression: US/fluoroscopic guided percutaneous cholecystostomy tube placement as extolled above. Attending: Michele Ching MD I was present during the intraservice time as documented by the IR Nurse. Outpatient Services/Studies: IR Biliary Tube Check/Change/Remove Standing Status: Future Standing Exp. Date: 11/24/22 Question Response Notes Where will study be performed? [facility] Radiology [120] Is the patient on anticoagulant / antiplatelet therapy ? No Reason for exam and clinical history: Recent NSTEMI with EF 17% with acute cholecytitis s/p oneyda tube on 03/31 for check #1 Instructions Given to Patient at Discharge: There are no outpatient Patient Instructions on file for this admission. General Instructions INTERVENTIONAL RADIOLOGY DRAIN CARE INSTRUCTIONS Drains help [...] your doctor or nurse during business hours. ??? No drainage or sudden decrease in amount of drainage- This may be due to a plug in the drain. Please notify your doctor or nurse during business hours. ??? The tube accidentally falls out- If this happens, place a dry gauze dressing over the drain siteand notify your doctor or nurse during business hours. ??? Increased redness, swelling, or heat around the [...] touch the measuring cup or anyother surface. 1. 2. Use one hand to squeeze all of the air from the drain. With the drain still squeezed, use your other hand to replace the top. This creates the suction necessary to remove the fluids from your body. 3. Pin the drain back on your clothing to avoid pulling it out accidently. 4. Wash your hands again. Remember to wash your hands before and after the procedure to reduce the risk of infection. Flushing the Drain: Your doctor may [...] is during regular office hours, please call [phone]. If it is after regular office hours, oron weekends or holidays, please call [phone] and ask to speak to the Parts Expediter on callfor Interventional Radiology. XX You have received medication during your procedure to help lessen anxiety and keep you comfortable. These medications affect judgement and reaction time. We recommend that you do not drive, operateequipment, sign any important documents, or smoke unattended [...] Total Amount (per drain; in 24 hours) INTERVENTIONAL RADIOLOGY DRAIN CARE INSTRUCTIONS How do I care for the drains [...] problems may I have with my drain? No drainage or sudden decrease in amount of drainage- This may be due to a plug in the drain. Please notify your doctor or nurse during business hours. ??? The tube accidentally falls out- If this happens, place a dry gauze dressing over the drain siteand notify your doctor or nurse during business hours. ??? Increased redness, swelling, or heat around the [...] tubing. 2. Unscrew the tubing with the bag attached from stopcock. Make sure you keep everything clean. 3. Attach the syringe with sterile saline to the stopcock. 4. Re-attach the tubing with the bag to the stopcock. 5. Invert the bag and pull open the plug. 6. Have the plastic measuring cup from the hospital ready to collect and measure the drainage. Please measure the output at the same time every 24 hours and record the amount. 7. Turn the drain upside down and squeeze the contents of the bulb into the measuring cup. Be sure to empty the bag as completely as possible. Empty contents of the bag into the toilet. 8. Use the drain output log chart to record the amount of drainage twice a day or any time the bag is full. Record the total for 24 hours for each drain you have. 9. If you have more than one drain, remember to record the drainage from each drain separately. 10. To prevent infection, do not let the stopper or top of the bottle touch the measuring cup or anyother surface. Always put a civil preparedness coordinator on the end to keep clean. 11. If you drainage bags starts to have an odor, you can clean the bag after removing it from the tube. Turn the stopcock to off. Put on a civil preparedness coordinator to the end of the stopcock to keep clean. To clean thebag, fill it with 2 parts vinegar to 3 parts water, and let it stand for 20 minutes. Then empty it out, and let it air dry. Reattach to drain and open the stopcock. When to call the Interventional Radiology Department: Please call with any questions or concerns. Ifit is during regular office hours, please call [phone]. If it is after regular office hours, oron weekends or holidays, please call [phone] and ask to speak to the Parts Expediter on callfor Interventional Radiology. XX You have received medication during your procedure to help lessen anxiety and keep you comfortable. These medications affect judgement and reaction time. We recommend that you do not drive, operateequipment, sign any important documents, or smoke unattended [...] occurs, please contact your M. D. Revised 10/17/19 Drainage Record NAME: Date of Surgery: Date: Time: If more than one drain, which one: Drainage Amount (per drain) Total Amount (per drain; in 24 hours) Future Appointments and Orders Future Appointments and Orders Future Appointments Provider Department Dept Phone 05/25/2022 2:10 PM [facility] IR ROOM 1 Radiology at [facility] Arrive at: [facility] RADIOLOGY [phone] Please expect a call from a radiology nurse within 3 days of your exam, you will need to follow theinstructions given at that time. Future Orders Complete By Expires IR Biliary Tube Check/Change/Remove [[id number] Custom] 05/25/2022 11/24/2022 Process Instructions: Scheduling Instructions: Comments: Questions: Where will study be performed?: [facility] Radiology Is the patient on anticoagulant / antiplatelet therapy ?: No Reason for exam and clinical history: Recent NSTEMI with EF 17% with acute cholecytitis s/p oneyda tube on 03/31 for check #1 Clinical information / regalado questions for radiologist: Exam/Procedure requested: What labs need to be collected during imaging study?: Does patient require sedation?: GA rationale: Requested Time: Date of injury if applicable: You will be contacted by the general surgery department to schedule a follow-up visit following yourreturn from [place]. Should your PCT stop flushing or have a significant change in the quality or quantity of the output,becomes feverish, have pain near the drain, experience chest pain or shortness of breath please present to the nearest hospital. Please bring his discharge paperwork with him on his trip. Signed: Fanta Tanner MD General Surgery [facility] pager [phone] [facility] Physician: Navin Souza MD [address] / [facility] [id number] Attending Addendum I have seen and examined the patient, I have reviewed the vitals, labs and pertinent imaging. I havediscussed the documentation above and agree, with the following comments: Doing well today and very eager to leave. About to embark on a 40 day trip throughout [place] - he iswell aware that he needs to care for the tube while gone and if he has any symptoms or problems he needs to promptly present to a local hospital. During his stay we treated him for his chronic heart failure and continued management of his recent PCI, he had no acute cardiac exacerbation during his stay. Lois Metz MD [id number] documented in this encounter Discharge Instructions Discharge InstructionsBj Vitale RN - 04/10/2022 1:39 PM EDT Images from the original note were not included. INTERVENTIONAL RADIOLOGY DRAIN CARE INSTRUCTIONS Drains help [...] is during regular office hours, please call [phone]. If it is after regular office hours, oron weekends or holidays, please call [phone] and ask to speak to the Parts Expediter on callfor Interventional Radiology. XX You have received medication during your procedure to help lessen anxiety and keep you comfortable. These medications affect judgement and reaction time. We recommend that you do not drive, operateequipment, sign any important documents, or smoke unattended [...] Total Amount (per drain; in 24 hours) INTERVENTIONAL RADIOLOGY DRAIN CARE INSTRUCTIONS How do I care for the drains [...] problems may I have with my drain? No drainage or sudden decrease in amount [...] tubing. 2. Unscrew the tubing with the bag attached from stopcock. Make sure you keep everything clean. 3. Attach the syringe with sterile saline to the stopcock. 4. Re-attach the tubing with the bag to the stopcock. 5. Invert the bag and pull open the plug. 6. Have the plastic measuring cup from the hospital ready to collect and measure the drainage. Please measure the output at the same time every 24 hours and record the amount. 7. Turn the drain upside down and squeeze the contents of the bulb into the measuring cup. Be sure to empty the bag as completely as possible. Empty contents of the bag into the toilet. 8. Use the drain output log chart to record the amount of drainage twice a day or any time the bag is full. Record the total for 24 hours for each drain you have. 9. If you have more than one drain, remember to record the drainage from each drain separately. 10. To prevent infection, do not let the stopper or top of the bottle touch the measuring cup or anyother surface. Always put a civil preparedness coordinator on the end to keep clean. 11. If you drainage bags starts to have an odor, you can clean the bag after removing it from the tube. Turn the stopcock to off. Put on a civil preparedness coordinator to the end of the stopcock to keep clean. To clean thebag, fill it with 2 parts vinegar to 3 parts water, and let it stand for 20 minutes. Then empty it out, and let it air dry. Reattach to drain and open the stopcock. When to call the Interventional Radiology Department: Please call with any questions or concerns. Ifit is during regular office hours, please call [phone]. If it is after regular office hours, oron weekends or holidays, please call [phone] and ask to speak to the Parts Expediter on callfor Interventional Radiology. XX You have received medication during your procedure to help lessen anxiety and keep you comfortable. These medications affect judgement and reaction time. We recommend that you do not drive, operateequipment, sign any important documents, or smoke unattended [...] Total Amount (per drain; in 24 hours) Patient InstructionsFanta Tanner MD - 04/11/2022 2:04 PM EDT Discharge Instructions You were were admitted and treated for the following diagnosis: acute cholecystitis CALL YOUR PHYSICIAN IF: You have a fever greater than 101F You have diarrhea or vomiting for >24 hours, or stop having bowel movements and passing flatus You have worsening pain, not controlled with your pain medication. You develop redness, swelling, or new drainage from your wounds Follow up: Future Appointments Date Time Provider Department Center 05/25/2022 2:10 PM [facility] IR ROOM [address] [facility] Rad You will be contacted by the general surgery department shortly to schedule a return visit to discuss further management once you return from [place]. Pain Medication Non-steroidal anti-inflammatories (NSAIDS) such as aspirin, Aleve and ibuprofen (Advil, Motrin) are medications that reduce pain and inflammation. To reduce your chance of side effects, it is recommended that you use Tylenol as needed for pain andthen NSAIDs and use narcotics as the last resort. Alternative means of pain relief such as rest and relaxation, positioning, as well as decreasing stimulants such as coffee, tea, soft drinks, and nicotine may also help to alleviate pain. If you continue to experience significant pain 4-5 days after your discharge, it may be necessary rpiya re-evaluated by your physician. Driving Restrictions: - No driving if you are too sore to enter or exit your vehicle comfortably, or if you are too sore to easily check your blind spot. No driving while using prescription pain medications Activities: - Increase your activity slowly. If it hurts don't do it, but try again the following day. - You may tire easily, so frequent naps may be necessary.. - You may take a shower but [...] 1. You will have follow-up appointments at [facility] as indicated in the ???Future Appointments and Orders?? section of your discharge summary. 2. If you do not have a scheduled follow-up appointment listed at the time of discharge, you will benotified of your scheduled appointment on the next business day. Please call [phone] if you do not hear from us by that time, as your timely follow-up is very important to us. Your care was managed by the Trauma and Acute Care Surgery Team at [facility]. If you have any questions or concerns, please feel free to contact us. Provider Contact Information: General Surgery: [facility] (after business hours): CC: Acute cholecystitis status-post percutaneous cholecystostomy tube placement Primary Care Physician: Navin Souza MD AttachmentsThe following attachments cannot be sent through Care Everywhere. Acute Cholecystitis: General Info (Persian)documented in this encounter Medications at Time of [...] mg Take 1 mg by mouth 0 03/0 12/2021 Tablet 2 times daily as needed. losartan [...] documented as of this encounter Progress Notes Fanta Tanner MD - 04/11/2022 1:53 PM EDT ID/MECHANISM OF INJURY: Gillian Branch is a 72 y.o. male S/p percutaneous cholecystostomy tube placement for acute cholecystitis OR CASE INFORMATION: N/A (PCT w/ IR ) FOLLOW-UP NEEDED: Does pt need to f-u with surgeon or [facility]ER (please indicate reason if attending provider): Attending - Dr. John How soon should ACS f/u be? Once the patient returns from [place] for further management of his gallbladder. Does patient need imaging prior to ACS f/u? No Are CT/MRI Safety questions complete (if needed)? No Does patient have nestor/sutures? When should they be removed? What service is responsible? No Does patient need labs with TACS f/u? No Follow-up with other services? Yes, has appointment with interventional radiology Advise of Service and needs. Imaging orders entered: No Radiology Safety questions done for MRI/CT? N/A New or current ostomy? Ostomy nurse shared visit No Mobility concerns: Fully ambulatory Wound vac (requires 60min clinic visit) No On vent? If Yes - Needs to have someone from facility and supplies. No On Dialysis: No INCIDENTAL FINDINGS Incidental Findings (yes/no): No OPIOID CONSENT/NARCOTIC AGREEMENTS Current Month Narcotic Consent? N/A You will not be sent home on narcotics D/c to: Home PCP Name: MD Fanta Pablo MD 04/11/2022 Agustin Monae MD - 04/11/2022 7:01 AM EDT Images from the original note were not included. INTERVENTIONAL RADIOLOGY Inpatient Progress Note Admitted 04/09/2022 Procedure(s): Cholecystostomy catheter placement Post-procedure day: #1 Time of patient encounter: 0650 24 Hour Events: There were no acute overnight events. Last Value 24 Hour Range Temperature 36.5 ??C (97.7 ??F) Temp: [36.3 ??C (97.3 ??F)-37.3 ??C (99.1 ??F)] Heart Rate 78 Heart Rate: [75-81] Blood Pressure 122/75 BP: (113-125)/(58-76) Respiratory Rate 16 Resp: [14-27] SpO2 97 % SpO2: [93 %-100 %] Physical Exam GEN No distress, A&O CARDS Acyanotic ABD Tenderness adjacent to cholecystostomy drain. Drains/Tubes: Cholecystostomy drain (placed 04/10): In place without evidence of change in position and to bag drainage. No leakage around drain. Skin site clean and without signs of infection. Dressing C/D/I. The drain was forward flushed with saline without evidence of occlusion. Last 24hr output: 200 mL bilious Labs: Reviewed. Micro: acute cholecystitis w/ recent history of stent placement on 02/28 on DAPT therefore percutatneous oneyda over lap oneyda. ?? 0 Result Notes Component 1 d ago Gram Stain ??Abnormal?? Few Neutrophils Few Gram Positive Rods Organism Gram Positive Rods??Abnormal?? Imaging: Assessment: 72 y.o. male with history of DM, hypertension, recent NSTEMI on aspirin and Plavix with a EF of 17% presenting with acute cholecystitis status post cholecystostomy catheter placement. Decreased white count this morning with resolution of fevers. Plan: Follow-up drain check in 6 weeks, order in eDH and IR home health scheduler notified. IR will sign off, please call with questions Lois Metz MD - 04/10/2022 8:59 PM EDT Acute Care Surgery Daily Progress Note ID:72 y.o. Male with PMH of DM, HTN, GERD and anxiety??with recent NSTEMI (02/19/2022) treated with PCI now on ASA and plavix lifelong and new HFrEF (LVEF 17% on last echo) who transferred from outside hospital for management of acute cholecystitis. Interval Events: - No acute events overnight - NPO in preparation for IR PCT - WBC 11.3 (14.2) - Cardiology consulted 04/10, recs appreciated Current Medications: ??? sodium chloride 0.9 % (flush) 5 mL Intravenous BID ??? lidocaine 10 mg Subcutaneous Once ??? escitalopram 10 mg Oral Daily ??? gabapentin 300 mg Oral TID ??? losartan 50 mg Oral Daily ??? metoprolol succinate XL 50 mg Oral Daily ??? pantoprazole EC 20 mg Oral Daily ??? spironolactone 12.5 mg Oral Daily ??? sodium chloride 0.9 % (flush) 5 mL Intravenous BID ??? enoxaparin 40 mg Subcutaneous Nightly ??? docusate sodium 100 mg Oral BID ??? piperacillin-tazobactam 3.375 g Intravenous Q8H ??? insulin lispro 1-4 Units Subcutaneous Q4H ERIC ??? aspirin 81 mg Oral Daily ??? clopidogreL 75 mg Oral Daily ??? melatonin 3 mg Oral Nightly Vital Signs: VITALS (24hr Range): Temp Temp: [36.3 ??C (97.3 ??F)-37.6 ??C (99.7 ??F)] , HR Heart Rate: [75-81] , BP BP: (108-125)/(58-76) , RR Resp: [14-27] , SpO2 SpO2: [90 %-100 %] I/O: Intake/Output Summary (Last 24 hours) at 04/10/20222058 Last data filed at 04/10/20222019 Gross per 24 hour Intake 1825.83 ml Output 1775 ml Net 50.83 ml Physical Exam: General: Resting comfortably in no acute distress, Alert and oriented x3 HEENT: Normocephalic, atraumatic CV: Regular rate Pulm: Normal work of breathing GI: Soft, nondistended, tender to palpation in RUQ, no rebound tenderness or guarding MSK: Warm and well-perfused, no peripheral edema Neuro: moving all four extremities spontaneously, no focal deficits noted Labs: Recent Labs 04/10/22 1055 04/09/22 1123 WBC 11.3* 14.2* HGB 13.5* 15.0 HCT 39.0* 43.8 PLATELET 145 129* Recent Labs 04/10/22 1055 04/10/22 0605 04/09/22 1123 NA -- 134* 136 K 3.5 Not Perf 4.3 CL -- 96* 97* CO2 -- 26 26 BUN -- 24* 24* CREATININE -- 1.01 1.09 GLUCOSE -- 124 178 CALCIUM -- 8.6 8.6 MAGNESIUM -- 0.91 0.78 PHOS -- 2.2* 2.9 Imaging: CT chest/abdomen/pelvis 04/08/2022: - Imaging consistent with acute cholecystitis with distended gallbladder, wall thickening, and surrounding fat stranding Assessment: Gillian Branch is a 72yo male with PMH of DM, HTN, GERD and anxiety??with recent NSTEMI (02/19/2022) treated with PCI now on ASA and plavix lifelong and new HFrEF (LVEF 17% on last echo) [facility]. He was started on Zosyn 04/09/22. Cardiology was consulted yesterday given Mr. Branch's extensive cardiac history. They deemed him high risk for surgery and strongly favored minimally invasive perc choletube with continuation of aspirin and plavix in the setting of recent stent placement. He went to today for PCT placement. He tolerated the procedure well. Plan: NEURO: - Pain control: PRN Tylenol 975mg q8hrs - Home Gabapentin TID Psych: - Home Lexapro 10mg PO - Melatonin Cards: - Consulted cardiology for risk stratification and management, recs appreciated - Metoprolol 50mg PO - Losartan 50mg - Home Aspirin 81mg - Home Plavix 75mg Pulm: - No active interventions, CTM FEN/: - F: LR 50mL/hr - E: replete as needed - N: CLD - Spironolactone 12.5mg - Furosemide 40mg IV - Daily weights - Strict I/Os GI: - IR placed PCT - Advanced to clear liquid diet - Miralax, Colace - Zofran PRN ID: - Zosyn (04/09-04/11), reassess need for continued antibiotics on 04/11 Endo: - ISS Heme: - See prophylaxis, No other active interventions Prophylaxis: - DVT: SCDs - GI: PPI Dispo: Floor CODE STATUS: Full Code Guillermo Linton, MS4 04/10/2022 Acute Care Surgery Pager [phone] A medical student assisted me in the documentation of this note. I personally saw and evaluated the patient, reviewed all applicable documented studies, and diagnostic images. The assessment and plan were formulated with the care team at the time of the visit and in my presence. I have made edits to the above note and agree with the details above. Jennifer Lockett MD PGY-1, General Surgery 04/11/22 Attending Addendum I have seen and examined the patient, I have reviewed the vitals, labs and pertinent imaging. I havediscussed the documentation above and agree, with the following comments: Perc oneyda tube placed today, he feels well post procedure. Will closely monitor output as it is somewhat bloody at this time. Continuing antiplt therapy given recent stents. He is eager to progress tostanton as he plans to go to [place] next week. Lois Metz MD [phone] Bj Vitale RN - 04/10/2022 12:55 PM EDT ANGIO NURSING DATABASE Name: GILLIAN BRANCH Date of : 1950 AGE: 72 y.o. Address: [address] [place] [address] (home) Mobile: Telephone Information: Referring Provider: Veronica Purcell REASON FOR VISIT: Order Questions Answers Reason for exam and clinical history: acute cholecystitis w/ recent history of stent placement on 02/28 on DAPT therefore percutatneous oneyda over lap oneyda Exam/Procedure requested: percutaneous cholecystostomy tube placement Is the patient on anticoagulant / antiplatelet therapy ? Clopidogrel,Aspirin Does patient require sedation? IV Please ensure a History and Physical exam is completed within 30 days of the Radiology Procedure OK Requested Date 04/10/22 Is the patient taking any anticoagulants and/or antiplatelet meds? Yes Is patient awake, alert, and consentable? Yes Does patient need assist to stand? No Does Patient have any mobility limitations (e.g. spinal precautions) No Does patient require constant supervision? No Is patient over 450 lbs (200 kg) No Does patient have a pacemaker? No Does patient have a Chest Tube? No Is there a language / communication barrier? No Plan Planned procedure: Cholecystostomy catheter placement (04/10/22823) Labs to be performed day of procedure: No labs (04/10/22823) Sedation: Moderate (Conscious sedation) (04/10/22823) Contrast: No contrast (04/10/22823) Additional medications for procedure: Lidocaine (04/10/22823) Planned access site: Right upper quadrant (04/10/22823) Position: Supine (04/10/22823) Consent: Pending (04/10/22823) Medications to discontinue (and days held): None (04/10/22823) Case Urgency:: D- Intervention within 24 hrs (04/10/22823) Allergies Allergen Reactions ??? Corticosteroids (Glucocorticoids) Rash Pertinent PMH: Patient Active Problem List Diagnosis Code ??? NSTEMI (non-ST elevated myocardial infarction) I21.4 ??? Acute systolic congestive heart failure I50.21 ??? Cholecystitis K81.9 Pertinent PSH: History reviewed. No pertinent surgical history. Date/Procedure Meds given/comments None prior 04/10/2022 Cholecystostomy tube placement Fentanyl 100mcg IV Midazolam 2mg IV 1255 to procedure room 1 via stretcher. Onto table supine. All monitors, O2, safety strap in place. Meds per protocol. Laboratory Results: Lab Results Component Value Date CREATININE 1.01 04/10/2022 Lab Results Component Value Date K Not Perf 04/10/2022 Lab Results Component Value Date PLATELET 129 (L) 04/09/2022 Agustin Monae MD - 04/10/2022 12:32 PM EDT INTERVENTIONAL RADIOLOGY FOCUSED H&P: Procedure: Planned procedure: Cholecystostomy catheter placement The patient's history and physical exam have been reviewed and completed. There has been no intervalchange from that of the pre-operative history and physical exam done within the last 30 days. Physical Exam: Cardiovascular: Regular, Normal Pulmonary: Breath sounds clear to auscultation The planned procedure (and sedation plan if appropriate) , its benefits and risks, and alternatives were discussed with the patient. The patient consented to the procedure. PRE-SEDATION ASSESSMENT: Sedation Plan: moderate (conscious sedation) ASA: 2: Patient with mild systemic disease Mallampati: III: only the base of the uvula can be seen Current medications reviewed: Yes Allergies reviewed: Yes Renita Pool RN - 04/09/2022 4:27 PM EDT 0900 patient admitted to [facility] from OSH where he presented with CP/SOB RUQ pain, febrile. CT scan concerning for acute cholecystitis. Pt had recent cardiac event of 02/19/22 NSTEMI, treated with PCI andnow on Aspirin and Plavix, see MD note for more details. Patient arrived on stretcher via ambulance, A&Ox4 pleasant and cooperative. Patient c/o of minorpain CP/epigastric region and discomfort with palpation on R Flank. VSS 36.6, 109/62, HR 91, on 2L SpO2 95% NC. Pt denied SOB/N/V. HRR,Lungs CTAB, +Hypo BS, Abd round/soft, tender to palpation on R. Ptvoiding, LBM 7/24, PPP, R#20 L#22 LR@50 started, pt SBA-Indepenent with mobility. Pt oriented to room, call light in reach. documented in this encounter H&P Notes Agustin Monae MD - 04/10/2022 8:24 AM EDT Images from the original note were not included. INTERVENTIONAL RADIOLOGY FOCUSED H&P and PRE-PROCEDURE NOTE: PCP: Navin Souza MD Referring Provider: Veronica Purcell Planned Procedure: Planned procedure: Cholecystostomy catheter placement Procedure Indication: Cholecystitis Procedure request received through Interventional Radiology eDH order queue. There are no answered order specific questions. Presenting Diagnosis/ Complaint: Gillian Branch is a 72 y.o. male with history of DM, hypertension, and recent NSTEMI on 02/19 and new heart failure with EF of 17% status post PCI now on aspirin and Plavix. Patient presented with right upper quadrant pain and fevers with CT demonstrating acute cholecystitis, patient transferred to for higher level of care. Giving cardiac history, patient referred for cholecystostomy catheter placement as an alternative to surgery. Past Medical/Surgical History: Patient Active Problem List Diagnosis Code ??? NSTEMI (non-ST elevated myocardial infarction) I21.4 ??? Acute systolic congestive heart failure I50.21 ??? Cholecystitis K81.9 Past Medical History: Diagnosis Date ??? Anxiety ??? Diabetes mellitus ??? GERD (gastroesophageal reflux disease) ??? HLD (hyperlipidemia) ??? Hypertension ??? NSTEMI (non-ST elevated myocardial infarction) History reviewed. No pertinent surgical history. Medications: No current facility-administered medications on file prior to encounter. Current Outpatient Medications on File Prior to Encounter Medication Sig Dispense Refill ??? empagliflozin (Jardiance) 10 mg Tablet Take [...] (E.C.) Take 20 mg by mouth daily. Allergies: Corticosteroids (glucocorticoids) Social History and Habits: Social History Socioeconomic History ??? Marital status: Spouse name: Not on file ??? Number of children: Not on file ??? Years of education: Not on file ??? Highest education level: Not on file Occupational History ??? Not on file Tobacco Use ??? Smoking status: Former Smoker Types: Cigarettes Quit date: 03/17/1986 Years since quittin.0 ??? Smokeless tobacco: Never Used Substance and [...] Labs: Lab Results Component Value Date WBC 14.2 (H) 04/09/2022 ANC 12.06 (H) 04/09/2022 HCT 43.8 04/09/2022 PLATELET 129 (L) 04/09/2022 BUN 24 (H) 04/10/2022 CREATININE 1.01 04/10/2022 ALKPHOS 63 04/10/2022 AST Not Perf 04/10/2022 ALBUMIN 3.5 04/10/2022 BILIDIR Not Perf 04/10/2022 BILITOT 1.1 04/10/2022 ALT Not Perf 04/10/2022 PROT 6.2 04/10/2022 K Not Perf 04/10/2022 Imaging: Physical Exam: Pending (to be performed in angio the day of procedure) ASA: Pending (to be assessed in angio the day of procedure) Mallampati Class: Pending (to be assessed in angio the day of procedure) Assessment: 72 y.o. male with history of recent NSTEMI and newly diagnosed heart failure with findings suspicious for acute cholecystitis on CT, referred for cholecystostomy placement. Patient on Zosyn. Plan: Planned procedure: Cholecystostomy catheter placement Labs to be performed day of procedure: No labs Sedation: Moderate (Conscious sedation) Contrast: No contrast Additional medications for procedure: Lidocaine Planned access site: Right upper quadrant Position: Supine Consent: Pending Medications to discontinue (and days held): None Case Urgency:: D- Intervention within 24 hrs 04/10/2022 Homero John MD - 04/09/2022 10:43 AM EDT [facility] Department of Surgery Inpatient History and Physical History of Present Illness: Gillian Branch is a 72 y.o. male with PMH of DM, HTN, GERD and anxiety??withrecent NSTEMI (02/19/2022) treated with PCI now on ASA and plavix lifelong and new HFrEF (LVEF 17% on last echo) who presented to an OSH initially on 04/08/22 with concern of an acute coronary problem as he had epigastric pain that was unrelieved with nitroglycerin. While at the OSH, his pain radiated tohis RUQ and he became febrile. There he underwent CT scan which was concerning for acute cholecystitis. Given his recent cardiac event and PCI he was transferred to [facility] for further care and evaluation. He did receive antibiotics at the outside institution but feels more tenderness in his RUQ this morning despite this.His last bowel movement was three days ago which is atypical for him. He last ate something at 12pm on 04/08. He denies any chest pain, shortness of breath, dizziness, fever, nausea or vomiting. Of note he also has a planned trip to [place] starting next Saturday for 40 days. At this time we will further evaluate treatment for his acute cholecystitis prior to making recommendations on whetheror not he should cancel this trip. PMH/PSH: Past Medical History: Diagnosis Date ??? Anxiety ??? Diabetes mellitus ??? GERD (gastroesophageal reflux disease) ??? HLD (hyperlipidemia) ??? Hypertension History reviewed. No pertinent surgical history. Bilateral knee replacement and back surgery for a ruptured disk. Medications No current facility-administered medications on file prior to encounter. Current Outpatient Medications on File Prior to Encounter Medication Sig Dispense Refill ??? empagliflozin (Jardiance) 10 mg Tablet Take [...] (E.C.) Take 20 mg by mouth daily. Allergies Allergies Allergen Reactions ??? Corticosteroids (Glucocorticoids) Rash Family History: No family history on file. Social History: Social History Socioeconomic History ??? Marital status: Spouse name: Not on file ??? Number of children: Not on file ??? Years of education: Not on file ??? Highest education level: Not on file Occupational History ??? Not on file Tobacco Use ??? Smoking status: Former Smoker Types: Cigarettes Quit date: 03/17/1986 Years since quittin.0 ??? Smokeless tobacco: Never Used Substance and [...] on file Housing Stability: Not on file Review of Systems: As stated above, otherwise ten system review negative Physical Exam: Temp: [36.6 ??C (97.88 ??F)] Heart Rate: -- Resp: -- BP: (109)/(62) SpO2: [95 %] Heart Rate from SpO2: [91 bpm] Gen: NAD, A0x3 HEENT: ADELIA, MMM CVS: RRR on monitor Pulm: Breathing comfortably on 2LNC GI: Soft, non-distended, tender to palpation in RUQ, no rebound tenderness or guarding MSK: WWP, no edema Neuro: moving all 4 extremities spontaneously, nonfocal Data independently reviewed: No results found for this or any previous visit (from the past 24 hour(s)). Imaging: CT chest/abdomen/pelvis 04/08/2022: - Imaging consistent with acute cholecystitis with distended gallbladder, wall thickening, and surrounding fat stranding Impression: Gillian Branch is a 72 y.o. male with PMH of DM, HTN, GERD and anxiety??with recent NSTEMI (02/19/2022) treated with PCI now on ASA and plavix lifelong and new HFrEF (LVEF 17% on last echo) who presented with acute cholecystitis. Given his recent cardiac event, PCI and new reduced EF will discuss with cardiology whether or not he would be able to undergo a laparoscopic cholecystectomy possible open vs receive a perc oneyda tube and defer surgical management till he is further away from his NSEMI. Although antibiotics alone can sometimes treat cholecystitis he seems to have worsening pain despite this treatment meaning he will likely need further intervention. Recommendation: - Admit to ACS, floor status, full code - Will obtain CBC, CMP, Mg, Phos. Pro BNP, troponin and baseline EKG now Neuro: Pain control with tylenol, home Lexapro, home gabapentin Cards: Cardiology consult for recent PCI, reduced EF to determine risk stratification for perc choletube vs lap/possible open oneyda, will obtain new Echo today, continue ASA, Plavix for recent PCI, home antihypertensives Pulm: wean O2 as tolerated GI/ FEN: NPO, LR @ 50, stool softeners : voiding independently will continue to monitor ID: IV Zosyn for acute cholecystitis Endo: ISS Heme: SCDs, lovenox Dispo: Floor status, full code Karina Asif MD 04/09/2022 Acute Care Surgery pager [phone] SURGICAL ATTENDING NOTE: Pt seen and examined with the resident staff on the brush and I agree with the above note and plan with the following additions/modifications. In brief patient is a very pleasant 72-year-old gentleman transferred to [facility] for consideration of cholecystectomy. Patient's past medical history notable for diabetes hypertension and more recently an NSTEMI for which he underwent PCI and is now on lifelong Plavix and aspirin. He also was noted to have an ejection fraction at his last admission of 17%. Patient began having pain on 08 April which was epigastric in nature which islocalized to the right upper quadrant. At an outside facility he was evaluated with a CT scan which was consistent with acute cholecystitis for which the surgeon at the outside facility was willing to perform a cholecystectomy but patient's family requested transfer to [facility] for further evaluation. On arrival here he was alert and oriented no acute distress. He was afebrile with stable vitals. His exam was notable for markedly tender right upper quadrant with a Kern sign. White count was 11,000. Outside imaging was personally reviewed. A/P: 72-year-old gentleman with recent NSTEMI and poor ejection fraction now with acute cholecystitis given his history, exam and imaging studies. At this point time we will keep patient on antibiotics and have cardiology evaluate him for preoperative risk stratification. I suspect given his ejection fraction of 17% at his last admission that his cardiac risk factors are quite high. There is no need for acute intervention today and we can wait for medicine to evaluate. Should they decide that he is too risky of a candidate at this point time we can consider placing a percutaneous cholecystostomy tube. More to follow following his cardiology evaluation. Otherwise as noted above. documented in this encounter Miscellaneous Notes Care Management Discharge - Sarina Hogan RN - 04/11/2022 2:35 PM EDT CARE MANAGEMENT FINAL DISCHARGE NOTE Chart reviewed, care reviewed with primary team and at interdisciplinary rounds. Patient is medically ready for discharge to Home with no discharge needs. Needs for Transition of Care: Plan for discharge is: Home w/o Services Outpatient Agency/Support Group Needs: None Transportation: family or friend will provide Functional status prior to admission: Independent Home Environment: Others in the home: pet(s). Current Living Arrangements: home/apartment/condo. Accessibility Concerns:4 stairs to enter home and a full flight to bedroom. Current Functional Ability: Assistive Person DME used at home: none Patient is insured through: Primary Insurance: MEDICARE Payor: MEDICARE / Plan: MEDICARE PART A & B / Product Type: *No Product type* / Secondary Insurance: FOR LIFE Prescription Coverage: Yes () This plan was formulated with input from patient, and team. All are in agreement with plan. Sarina Hogan RN, BSN Case Management Plan of Care - Noris Cason RN - 04/11/2022 12:35 PM EDTSummary: plan of care OUTCOME EVALUATION NOTE: OUTCOME SUMMARY: PT A&O x 4. VSS on room air. LS clear, HRR. Denies CP and SOB. ABD soft w/ TTP in RUQ above incision site. Oneyda drain CDI. Continued sanginous output in collection bag- aware. Drain teaching done at 1130. Pt verbalizes understanding. Saline flushes, alcohol pads and collection container given to patient for discharge. Voiding in urinal. No BM this shift. Pt tolerating regular diet. @1300 PT able to demonstrate proper drain care. Pt asks appropriate questions. Discharge f/u apt rescheduled w/ IR staff for SaturdayMay 28- PT aware. @1545 Discharge paperwork reviewed with patient. Pt discharged to home via wheelchair. Personal belongings including black duffle bag sent home w/ patient. Per MD order Pt to flush drain x1 a day. PLAN MOVING FORWARD: Discharge planning Drain care I&O, VS, Fingersticks Encourage independence Initial Assessments - Sarina Hogan RN - 04/10/2022 3:18 PM EDT Office of Care Management Initial Assessment Sarina Hogan RN reviewed record and discussed patient with Care Team. Patient present to hospital with epigastric pain. - Imaging consistent with acute cholecystitis with distended gallbladder, wall thickening, and surrounding fat stranding. Patient to IR for drain placement today. Source of Information: Team, bedside nurse, medical record, and Patient Introduced self/reviewed role; services accepted. Reason for Hospitalization: Cholecystis Covid Vaccination Status: 1st, 2nd & booster (J&J x3) Last COVID test: Lab Results Component Value Date COVID19 Not Detected 02/23/2022 [id number] Not Detected 02/20/2022 Past medical History: Past Medical History: Diagnosis Date ??? Anxiety ??? Diabetes mellitus ??? GERD (gastroesophageal reflux disease) ??? HLD (hyperlipidemia) ??? Hypertension ??? NSTEMI (non-ST elevated myocardial infarction) Hospitalizations Within the Past 30 Days: no previous admission in last 30 days Current Decision-Making Capacity: Self If AD's have not been completed the following surrogate would be surrogate decision maker per [place] surrogate decision making law. (Only good for 180 days) Any patient receiving care in [place] must abide by [place] law. The hierarchy for surrogate decision making is: (a) Patient???s spouse, or civil union partner or common law spouse unless there is a divorce proceeding, separation agreement, or restraining order limiting that person???s relationship with the patient. (b) Any adult son or daughter of the patient. (c) Either parent of the patient. (d) Any adult brother or sister of the patient. (e) Any adult grandchild of the patient. (f) Any grandparent of the patient. (g) Any adult aunt, uncle, niece, or nephew of the patient. (h) A close friend of the patient. (i) The agent with financial power of patent attorney or a conservator appointed in accordance with RSA 464-A. (j) The guardian of the patient???s estate. Advance Care Planning: Attempt Cardiopulmonary Resuscitation - Inpatient <no information> -Advanced Directive: No, declines Current Coping/Education/Information Needs: coping fine Current Functional Ability: Assistive Person Functional Status Prior to Admission: Independent Prior ADLs & IADLs: Independent with all ADLs & IADLs Home Environment: Others in the home: pet(s). Current Living Arrangements: home/apartment/condo. Accessibility Concerns:4 stairs to enter home and a full flight to bedroom. Resource / Environmental Concerns: Resource/Environmental Concerns: none Current DME: none Home Address listed as: [address] [place] [id number] Social & Family Supports: Extended Emergency Contact Information Primary Emergency Contact: JOSE LUIS BRANCH Address: [address] [place] [id number] [place] [address] Mobile Relation: Child Current Care Provided by: self Provides Primary Care For: no one, unable/limited ability to care for self Caregiver if needed: child(chuckie), adult Quality of Family relationships: helpful, involved Community Resources being provided currently: none Behavioral Health History: denied Substance Use/Abuse listed: Social History Tobacco Use Smoking Status Former Smoker ??? Types: Cigarettes ??? Quit date: 03/17/1986 ??? Years since quittin.0 Smokeless Tobacco Never Used In the past year have you used an illegal drug or used a prescription medication for non-medical reasons?: No 0 No problems reported 1-2 Low level 3-5 Moderate level 6-8 Substantial level 9- 10 Severe level In the past year have you had 5 or more drinks a day containing alcohol?: Yes Audit Score (Male): 7 0 to 7 points: Low risk 8 to 15 points: Medium risk 16 to 19 points: High risk 20 to 40 points: Addiction likely Other Pertinent/Service Specific Information: n/a Health/Prescription Coverage: Primary Insurance: MEDICARE Payor: MEDICARE / Plan: MEDICARE PART A & B / Product Type: *No Product type* / Secondary Insurance: FOR LIFE Secondary Insurance? (Only Medicare A&B): Yes () ; Prescription Coverage: Yes () Preferred Pharmacy: [id number] - [place], [place] - [address] [address] [facility] - [place], [place] - [address] [facility] [address] [facility] [address] [facility] - [place], [place] - [address] [facility] [address] [facility] [address] [facility] [address] Status: Patient is a : Yes Are you enrolled in the [place] for your healthcare?: Yes Are you here under your VA benefit?: No Primary Care Provider: Navin Souza MD [phone] Patient/Caregiver Goals of Treatment: get procedure done Potential Needs for Transition of Care: none Agency Referrals: Patient declined Homecare Transportation: no concerns Transportation Anticipated: family or friend will provide Concerns to be Addressed: denies needs/concerns at this time, patient refuses services Assessment: Patient is admitted to ACS service for Cholecystitis Plan: Patient went to I/R for placement of drain. Patient declined homecare services and will discharge home when medically ready. A member of the Care Management team will continue to monitor progress, follow for continuity of care and assist with transition of care planning. Sarina Hogan RN, BSN Case Management Plan of Care - Noris Cason RN - 04/10/2022 2:46 PM EDTSummary: plan of care Pt A& O x 4. VSS on room air. Pain denied. Denies nausea, dizziness, CP or SOB. Pt requests to get rest and not be bothered until later. Cardiology office contacted to cancel apt as he is inpatient. ABD is mildly distended bowelsounds hypoactive. Voids using urinal. IVMF infusing at 50ml/hr @1230 Pt to IR for oneyda drain placement. Pt returned from IR at 1430- Alert and oriented x 4. VSS pain denied. Right oneyda drain with sanguinous output. Dressing D&I. Diet advanced to Clear liquids. Request for Do not disturb from 10p-5am requested per pt's request. @1520 Pt developed shakes stating he felt cold. Temp check 98.7. Room thermostat adjusted and warm blanket given. PT denies nausea, pain, diaphoresis, chest pain or sob. MD aware @1630 Rigors resolved. Pt resting comfortably. Tolerating clear liquids. Bed in low position, call mcallister witin reach. Consult Note - Rajinder Terry MD - 04/09/2022 11:58 AM EDT Inpatient Cardiology - Initial Consultation Date of Consultation: 04/09/2022 Admit Date: 04/09/2022 Reason for Consult: We are seeing Gillian Branch at the request of Arabella Heredia MD for the evaluationof perioperative risk stratification. I have reviewed the available records, interviewed, and examined the patient. HPI: Gillian Branch is a 72 year old man with PMH significant for diabetes, hypertension, alcohol use, coronary artery disease status post PCI for NSTEMI in February 2022, heart failure with severely reduced ejection fraction, who presented to OSH with right upper quadrant pain and fever. He also had lower sternalpain in addition to the right upper quadrant pain. He was transferred to [facility] and is admitted under the surgical service with acute cholecystitis. Primary team is planning to intervene with either a percutaneous oneyda tube versus laparoscopic cholecystectomy in setting of failure of antibiotic treatment. The latter would per primary surgical team require holding plavix temporarily postoperatively. Regarding his NSTEMI, Mr. Branch underwent cardiac catheterization in mid February with WARP TYING MACHINE KNOTTER of proximal LAD (collateralized by RCA), with cardiac MRI performed at that time showing viability in base to mid anterior, anterolateral, and anteroseptal territory. He was also found to have a laminar thrombus in the distal anterior left ventricle which subsequent transthoracic echocardiogram did not demonstrate.PCI of the LAD WARP TYING MACHINE KNOTTER lesion was performed on 02/27/22, with angioplasty of ostial diag 1, ostial diag 2, and ostial ramus, as well as thrombectomy of the LCX; he required Integrilin at that time. He was discharged on lasix 20mg PO, metoprolol succinate, losartan 50mg q24h, spironolactone 12.5mg q24h, atorvastatin 80mg q24h. At this time, Mr. Branch reports that he is feeling generally well, and his lower sternal pain is significantly improved. He has been working with cardiac rehab and has not noticed any chest discomfort or dyspnea while exerting himself after his ACS event. He is concerned regarding his upcoming cruise trip and the possibility that it may be unable to occur. Review of Systems: 10 point review of systems completed, pertinent findings are noted in the HPI. Past Medical History Past Medical History: Diagnosis Date ??? Anxiety ??? Diabetes mellitus ??? GERD (gastroesophageal reflux disease) ??? HLD (hyperlipidemia) ??? Hypertension ??? NSTEMI (non-ST elevated myocardial infarction) Outpt Meds: No current facility-administered medications on file prior to encounter. Current Outpatient Medications on File Prior to Encounter Medication Sig Dispense Refill ??? empagliflozin (Jardiance) 10 mg Tablet Take [...] (E.C.) Take 20 mg by mouth daily. Inpatient Meds: Scheduled Meds: ??? escitalopram 10 mg Oral Daily ??? gabapentin 300 mg Oral TID ??? losartan 50 mg Oral Daily ??? metoprolol succinate XL 50 mg Oral Daily ??? pantoprazole EC 20 mg Oral Daily ??? spironolactone 12.5 mg Oral Daily ??? sodium chloride 0.9 % (flush) 5 mL Intravenous BID ??? enoxaparin 40 mg Subcutaneous Nightly ??? docusate sodium 100 mg Oral BID ??? piperacillin-tazobactam 3.375 g Intravenous Q8H Continuous Infusions: ??? lactated Ringers 50 mL/hr (04/09/22 1147) PRN Meds:.sodium chloride 0.9 % (flush), lidocaine, polyethylene glycoL, bisacodyl EC, acetaminophen, ondansetron Allergies: Allergies Allergen Reactions ??? Corticosteroids (Glucocorticoids) Rash Family and Social Hx: No family history on file. Social History Socioeconomic History ??? Marital status: Spouse name: Not on file ??? Number of children: Not on file ??? Years of education: Not on file ??? Highest education level: Not on file Occupational History ??? Not on file Tobacco Use ??? Smoking status: Former Smoker Types: Cigarettes Quit date: 03/17/1986 Years since quittin.0 ??? Smokeless tobacco: Never Used Substance and [...] on file Housing Stability: Not on file Vitals: Last value Range last 24 hrs Temperature Temp: 36.6 ??C (97.88 ??F) Temp: [36.6 ??C (97.88 ??F)] Heart Rate Heart Rate: -- Blood Pressure BP: 109/62 BP: (109)/(62) Respiratory Rate Resp: -- SpO2 SpO2: 95 % SpO2: [95 %] I's and O's: No intake or output data in the 24 hours ending 04/09/22 1158 Weights: Patient Vitals for the past 168 hrs: Weight 04/09/22 1100 107.1 kg (236 lb 1.8 oz) Examination: General: Pleasant male in no acute distress Cardiac: Regular rate and rhythm, S1/S2 auscultated. No murmurs, rubs, or gallops appreciated Respiratory: No increased work of breathing, bibasilar crackles bilaterally Extremities: Warm and well perfused Neuro: Alert and oriented, no gross focal defects Skin: Warm, dry Psych: Normal affect Labs: CBC: Recent Labs 02/28/2233402/27/2233602/26/22 0355 WBC 6.1 6.2 4.8 HGB 15.0 16.6* 16.5 PLATELET 167 178 173 Chemistry: Recent Labs 02/28/22 03302/27/22 0337 02/26/22 0355 NA 135 135 137 K 4.3 4.0 4.0 CL 102 100 104 CO2 24 23 22 BUN 15 17 14 CREATININE 0.89 0.72* 0.75* Recent Labs 02/28/22 03302/27/22 0337 02/26/22 0355 CALCIUM 9.0 9.2 9.4 MAGNESIUM 0.79 0.80 0.79 LFT's: No results for input(s): BILITOT, BILIDIR, ALBUMIN, ALKPHOS, ALT, AST in the last 7068 hours. Coags: No results for input(s): PT, INR, PTT, FIBRINOGEN, DDIMER in the last 168 hours. Invalid input(s): THROMBIN TIME Cardiac enzymes: Recent Labs 02/21/22 0904 02/21/22 0254 02/20/222031 TROPONINT 0.01* 0.02* <0.01 Cardiac catheterization 02/27/22 Coronary Angiography: Dominance: Right Left Main There [...] of the ostial segment of the ramus. Conclusions: * Significant stenosis of the left [...] Dual Antiplatelet (DAPT) Recommendations above * Successful WARP TYING MACHINE KNOTTER PCI of the LAD with preservation of all side branches. Echocardiogram 02/21/22: 1. The left ventricle is severely dilated [...] There is no prior study for comparison. Echocardiogram 02/26/22: Interpretation Summary Limited study to assess for LV thrombus. There is no evidence of LV thrombus on this study. Left ventricular systolic function is severely reduced. Left ventricular ejection fraction is estimated visually at 20%. Assessment: Gillian Branch is a 72 y.o. male admitted to [facility] surgical service with acute cholecystitis. His case iscomplicated by severe cardiomyopathy as well as severe multivessel coronary artery disease with recent stent placement. In the setting of these, cardiology service recommendations are requested with respect to his cholecystitis management. Would strongly prefer longer lag time between surgery requiring plavix hold and his stent placement if possible, though if his clinical condition changes to preclude this, would continue plavix for as long as feasibly possible in the perioperative period. Recommendations: 1. Perioperative risk stratification - Given recent UT with multiple stented lesions, as well as significant left main stenosis, will hold on using conventional perioperative risk calculators as these do not apply to this individual patient - Mr. Branch is high risk for surgery, though his risk profile will certainly improve further out from stenting. Given the above, with necessity of holding plavix postoperatively, would strongly favor minimally invasive perc oneyda tube from a cardiac standpoint if at all feasible, as further time out from stenting will decrease risk of thrombosis during period of plavix hold - Please obtain EKG - Continue with aspirin and plavix in setting of recent stent placement - please ensure that these are ordered in time with his prior dosing to avoid missing dose - Continue with GDMT for severe cardiomyopathy, including perioperative continuation of beta ciara - Recommend initiation of high intensity statin unless strongly contraindicated, no LFTs found - Strict I/O, daily weight, check CXR. BNP lower than prior. He does appear volume overloaded on exam, would recommend adding to his home lasix for goal net negative 1L per day over the next few days. Can utilize lasix 40mg IV to start and titrate according to I/O and daily weight Case to be staffed with Dr. Chang, recommendations not final until signed by attending Rajinder Terry MD 04/09/2022 Associated attestation - Andie Chang MD - 04/09/2022 3:08 PM EDT Cardiology Attending Addendum: I was the attending community health promoter for this clinical encounter. For the purposes of billing, I was directly involved in the evaluation and clinical decision making and agree with the plan of care, with any additions/exceptions/emphases as noted below. Please see the note by Dr. Terry for full details, in brief: 72yoM w/ known ASCVD s/p recent NSTEMI with extensive/complex PCI involving the entire left coronarysystem (ostial and prox LAD, D1, D2, Ramus and LCX which was unfortunately jailed) with multiple DESplaced on 02/28/22. Intraprocedurally, his course was complicated by thrombus formation in the LCX requiring acute thrombectomy and eptifibatide gtt. He now presents with epigastric/RUQ pain, subsequentfever and imaging evaluation concerning for acute cholecystitis. In the setting of recent UT and severely reduced LVEF, the patient is at high risk of cardiac taco-operative complications. He appears compensated from the perspective of chronic HFrEF, and his LVEF may have improved post revasc and withmedical management so agree with re-evaluation by TTE. The more difficult issue is his DAPT. He had an extensive and complex intervention and the development of intraprocedural coronary thrombus heralds a likely higher risk of stent thrombosis. Interruption to his DAPT before 3 months, even for a brief period, would not be recommended unless absolutely necessary. From the cardiac perspective, we would recommend pursuing treatment options that would allow uninterrupted administration of DAPT until hehas completed 3 months. At that point, a brief hold could be considered. Should interruption of his DAPT be absolutely necessary, we would certainly be available to assist with taco- operative monitoring and management of cardiac complications. Recommendations discussed with the patient and his family at the bedside this afternoon. Thank you for involving us in the care of this patient. Please contact us with any additional questions or concerns. Andie Chang MD Cardiovascular Medicine Personal Pager #[phone] 04/09/2022 2:54 PM documented in this encounter Plan of Treatment Not on filedocumented as of this encounter Procedures Procedure Name Priority Date/Time Associated Diagnosis Comme nts POCT GLUCOSE Routine 04/11/2022 11:26 Results for this AM EDT procedure are i n the results section. POCT GLUCOSE Routine 04/11/2022 7:50 Results for this AM EDT procedure are i n the results section. HEMOGRAM Routine 04/11/2022 6:13 Results for this AM EDT procedure are i n the results section. DIFFERENTIAL, AUTOMATED Routine 04/11/2022 6:13 R esults for this AM EDT procedure are i n the results section. HC CBC,PLT & AUTO DIFF Routine 04/11/2022 6:13 AM EDT HC PHOSPHORUS, SERUM Routine 04/11/2022 6:13 Resu lts for this AM EDT procedure are i n the results section. HC MAGNESIUM, SERUM Routine 04/11/2022 6:13 Resul ts for this AM EDT procedure are i n the results section. BASIC METABOLIC PANEL Routine 04/11/2022 6:13 Res ults for this (NON-FASTING) AM EDT procedure are in the results section. POCT GLUCOSE Routine 04/11/2022 4:11 Results for this AM EDT procedure are i n the results section. POCT GLUCOSE Routine 04/10/2022 8:03 Results for this PM EDT procedure are i n the results section. POCT GLUCOSE Routine 04/10/2022 2:33 Results for this PM EDT procedure are i n the results section. IR CHOLECYSTOSTOMY TUBE STAT 04/10/2022 1:50 R esults for this PLACEMENT PM EDT procedure are i n the results section. ANAEROBIC CULTURE Routine 04/10/2022 1:29 Results for this PM EDT procedure are i n the results section. HC BODY FLUID CULTURE Routine 04/10/2022 1:29 PM EDT BODY FLUID CULTURE, Routine 04/10/2022 1:29 Resul ts for this AEROBIC PM EDT procedure are i n the results section. POCT GLUCOSE Routine 04/10/2022 12:28 Results for this PM EDT procedure are i n the results section. HEMOGRAM Routine 04/10/2022 10:55 Results for this AM EDT procedure are i n the results section. DIFFERENTIAL, AUTOMATED Routine 04/10/2022 10:55 Results for this AM EDT procedure are i n the results section. HC CBC,PLT & AUTO DIFF Routine 04/10/2022 10:55 AM EDT HC POTASSIUM Routine 04/10/2022 10:55 Results for this AM EDT procedure are i n the results section. HEPATIC FUNCTION PANEL Routine 04/10/2022 10:55 R esults for this AM EDT procedure are i n the results section. POCT GLUCOSE Routine 04/10/2022 8:54 Results for this AM EDT procedure are i n the results section. HC PHOSPHORUS, SERUM Routine 04/10/2022 6:05 Resu lts for this AM EDT procedure are i n the results section. HC PROBNP Routine 04/10/2022 6:05 Results for this AM EDT procedure are i n the results section. HC MAGNESIUM, SERUM Routine 04/10/2022 6:05 Resul ts for this AM EDT procedure are i n the results section. HEPATIC FUNCTION PANEL Routine 04/10/2022 6:05 Re sults for this AM EDT procedure are i n the results section. BASIC METABOLIC PANEL Routine 04/10/2022 6:05 Res ults for this (NON-FASTING) AM EDT procedure are in the results section. POCT GLUCOSE Routine 04/10/2022 3:39 Results for this AM EDT procedure are i n the results section. POCT GLUCOSE Routine 04/10/2022 12:00 Results for this AM EDT procedure are i n the results section. POCT GLUCOSE Routine 04/09/2022 7:37 Results for this PM EDT procedure are i n the results section. POCT GLUCOSE Routine 04/09/2022 4:50 Results for this PM EDT procedure are i n the results section. ECHOCARDIOGRAM LMTD W/O Routine 04/09/2022 2:16 Acute systolic Results for this CON W LMTD SPEC DOPP, PM EDT congestive heart pr ocedure are in COLOR DOPP failure the results section. EKG 12-LEAD Routine 04/09/2022 12:25 Cholecystitis Results fo r this PM EDT procedure are i n the results section. POCT GLUCOSE Routine 04/09/2022 12:13 Results for this PM EDT procedure are i n the results section. DIFFERENTIAL, MANUAL STAT 04/09/2022 11:23 Res ults for this AM EDT procedure are i n the results section. HEMOGRAM STAT 04/09/2022 11:23 Results for this AM EDT procedure are i n the results section. HC VENIPUNCTURE STAT 04/09/2022 11:23 AM EDT HC TROPONIN T STAT 04/09/2022 11:23 Results fo r this AM EDT procedure are i n the results section. HC PHOSPHORUS, SERUM STAT 04/09/2022 11:23 Res ults for this AM EDT procedure are i n the results section. HC PROBNP STAT 04/09/2022 11:23 Results for this AM EDT procedure are i n the results section. HC MAGNESIUM, SERUM STAT 04/09/2022 11:23 Resu lts for this AM EDT procedure are i n the results section. COMPREHENSIVE METABOLIC STAT 04/09/2022 11:23 Results for this PANEL (NON-FASTING) AM EDT procedur e are in the [...] catheter was then exchanged for a 8.5 German Candelaria-Joaquin catheter over an 0.035 Amplatz wire. [...] ct identified. ? ? Exchange for 10 German Candelaria-Joaquin catheter, positioned within the gallbladder lumen Impression: 1) Obstructed cystic duct. 2) Cholecystostomy catheter exchanged fo r 10 German Candelaria-Joaquin. Plan: - To angio recovery, may discharge when criteria met - Routine cholecystostomy catheter evalu ation in 2 months (placeholder), order placed and IR home health scheduler notified. Resident/Fellow: Toby Eaton MD [facility] Attending: Dr. Ching Lois Metz MD IMG IR ORDERABLES (ABNORMAL) POCT Glucose (04/11/2022 11:26 AM EDT) athologist Signature POC Glucose 230 (H) 65 - [facility] mg/dL [facility] Comment: Supplemental ranges: <140 mg/dL before meals <180 mg/dL all other times of the day Specimen Anatomical Collection Method Collection Time Receive d Time (Source) Location / / Volume Laterality Blood 04/11/2022 11:26 04/11/2022 AM EDT 11:26 AM EDT Lois Metz MD POINT OF CARE TEST ORDERABLE S Performing Organization Address City/State/[place] [address] POCT Glucose (04/11/2022 7:50 AM EDT) athologist Signature POC Glucose 129 65 - 199 [facility] mg/dL [facility] Comment: Supplemental ranges: <140 mg/dL before meals <180 mg/dL all other times of the day Specimen Anatomical Collection Method Collection Time Receive d Time (Source) Location / / Volume Laterality Blood 04/11/2022 7:50 AM 7:50 EDT AM EDT Lois Metz MD POINT OF CARE TEST ORDERABLE S Performing Organization Address City/State/[place] [address] [facility] [address] (ABNORMAL) Differential, Automated (04/11/2022 6:13 AM EDT) [facility] Method Time Signature Neutrophils % 80.8 % [facility] Neutr Abs (ANC) 5.38 1.70 - [facility] 6.10 [facility] x10(3)/[facility] LABORATORY Lymphocytes % 10.8 % [facility] Lymphocytes Abs 0.7 (L) 0.9 - 3.2 [facility] x10(3)/[facility] LABORATORY Monocytes % 5.5 % [facility] Monocyte Abs 0.4 0.3 - 0.9 [facility] x10(3)/[facility] LABORATORY Eosinophils % 2.2 % [facility] Eosinophils Abs 0.2 0.0 - 0.4 [facility] x10(3)/[facility] LABORATORY Basophils % 0.3 % [facility] LABORATORY Basophils Abs 0.0 0.0 - 0.1 [facility] x10(3)/[facility] LABORATORY Immature Gran % 0.40 % [facility] LABORATORY Comment: Immature granulocytes(IG's)percentage an d absolute count will include metamyelocytes, myelocytes, and promyelo cytes. Blood smears from CBCs yielding IG's will be scanned manually for concor dance. If this scan disagrees with the automated IG or if promyelocytes are not ed, a manual differential will be performed. Julianna Gran Abs 0.03 0.00 - 0.04 x10(3)/[facility] MAR Y [facility] LABORATORY Specimen Anatomical Collection Method Collection Time Receive d Time (Source) Location / / Volume Laterality Blood 04/11/2022 6:13 AM 6:31 EDT AM EDT Resulting Agency Comment Spec In Lab Karina Asif MD HEMATOLOGY ORDERABLES Performing Organization Address City/[facility]/[place] [address] (ABNORMAL) Hemogram (04/11/2022 6:13 AM EDT) Analysis Performed At Patho logist Time Signature WBC 6.7 4.0 - 9.5 [facility] x[facility](3[facility] LABORATORY RBC 4.22 (L) 4.58 - JE MCCANNJEFFERY 5.54 [facility] x10(6)/[facility] LABORATORY Hemoglobin 13.4 (L) 13.7 - [facility] 16.5 g/dL [facility] LABORATORY Hematocrit 38.8 (L) 40.5 - [facility] 48.5 % [facility] LABORATORY MCV 91.9 82.9 - [facility] 93.1 [facility] LABORATORY MCH 31.8 27.5 - [facility] 32.1 pg [facility] LABORATORY MCHC 34.5 32.0 - [facility] 35.7 g/dL [facility] LABORATORY Platelets 135 (L) 145 - 357 [facility] x10(3)/[facility] LABORATORY RDWSD 42.7 36.0 - [facility] 45.0 [facility] LABORATORY RDWCV 12.6 11.4 - [facility] 13.8 % [facility] LABORATORY MPV 11.6 7.6 - 12.9 [facility] LABORATORY nRBC % Auto 0.0 % [facility] LABORATORY nRBC Abs Auto 0.000 0.000 - [facility] 0.000 [facility] x10(3)/[facility] LABORATORY Specimen Anatomical Collection Method Collection Time Receive d Time (Source) Location / / Volume Laterality Blood 04/11/2022 6:13 AM 2 6:31 EDT AM EDT Resulting Agency Comment Spec In Lab Karina Asif MD HEMATOLOGY ORDERABLES Performing Organization Address City/State/[place] [address] (ABNORMAL) Phosphorus (04/11/2022 6:13 AM EDT) P athologist Signature Phosphorus 2.3 (L) 2.5 - 4.5 [facility] mg/dL [facility] LABORATORY Specimen Anatomical Collection Method Collection Time Receive d Time (Source) Location / / Volume Laterality Blood 04/11/2022 6:13 AM 2 6:31 EDT AM EDT Resulting Agency Comment Spec In Lab Lois Metz MD CHEMISTRY ORDERABLES Performing Organization Address City/[facility]/ZIP Code Phon e Number [address] Magnesium (04/11/2022 6:13 AM EDT) athologist Signature Magnesium 0.88 0.69 - 1.07 [facility] mmol/L [facility] LABORATORY Specimen Anatomical Collection Method Collection Time Receive d Time (Source) Location / / Volume Laterality Blood 04/11/2022 6:13 AM 2 6:31 EDT AM EDT Resulting Agency Comment Spec In Lab Lois Metz MD CHEMISTRY ORDERABLES Performing Organization Address City/[facility] [place] [address] (ABNORMAL) Basic Metabolic Panel (non-fasting) (04/11/2022 6:13 AM EDT) athologist Signature Glucose Lvl 164 65 - 199 [facility] mg/dL [facility] LABORATORY Comment: Diabetes: >=200 mg/dL plus symp toms BUN 15 10 - 20 mg/dL [facility] LABORATORY Creatinine 0.63 (L) 0.80 - 1.50 mg/dL [facility] LABORATORY Sodium 134 (L) 135 - 145 mmol/L [facility] LABORATORY Potassium 3.6 3.5 - 5.0 mmol/L [facility] LABORATORY Comment: Please note: ??Patients with WBC >100,00 0 may have falsely elevated Potassium levels. ??For accurate Potassium quantif ication in these patients send serum separator tube (gold top) for subsequent determinations. ??Contact the Clinical Chemistry Laboratory if there are any qu estions. Chloride 99 98 - 107 mmol/L [facility] LABORATORY CO2 25 22 - 31 mmol/L [facility] LABORATORY Anion Gap 10 5 - 15 mmol/L [facility] LABORATORY Calcium 8.3 (L) 8.5 - 10.5 mg/dL [facility] LABORATORY Estimated GFR 102 >=60 mL/min/1.73 m?? [facility] LABORATORY Comment: This patient's estimated [...] (Source) Location / / Volume Laterality Blood 04/11/2022 6:13 AM 2 6:31 EDT AM EDT Resulting Agency Comment Spec In Lab Lois Metz MD CHEMISTRY ORDERABLES Performing Organization Address City/State/[place] [address] POCT Glucose (04/11/2022 4:11 AM EDT) athologist Signature POC Glucose 125 65 - 199 [facility] mg/dL [facility] LABORATORY Comment: Supplemental ranges: <140 mg/dL before meals <180 mg/dL all other times of the day Specimen Anatomical Collection Method Collection Time Receive d Time (Source) Location / / Volume Laterality Blood 04/11/2022 4:11 AM 2 4:11 EDT AM EDT Lois Metz MD POINT OF CARE TEST ORDERABLE S Performing Organization Address City/State/[place] [address] (ABNORMAL) POCT Glucose (04/10/2022 8:03 PM EDT) athologist Signature POC Glucose 227 (H) 65 - 199 [facility] mg/dL [facility] LABORATORY Comment: Supplemental ranges: <140 mg/dL before meals <180 mg/dL all other times of the day Specimen Anatomical Collection Method Collection Time Receive d Time (Source) Location / / Volume Laterality Blood 04/10/2022 8:03 PM 2 8:03 EDT PM EDT Lois Metz MD POINT OF CARE TEST ORDERABLE S Performing Organization Address City/State/[place] [address] POCT Glucose (04/10/2022 2:33 PM EDT) P athologist Signature POC Glucose 118 65 - 199 [facility] mg/dL [facility] LABORATORY Comment: Supplemental ranges: <140 mg/dL before meals <180 mg/dL all other times of the day Specimen Anatomical Collection Method Collection Time Receive d Time (Source) Location / / Volume Laterality Blood 04/10/2022 2:33 PM 2 2:33 EDT PM EDT Arabella Heredia MD POINT OF CARE TEST ORDERABLE S Performing Organization Address City/State/[place] [address] IR Cholecystostomy Tube Placement (04/10/2022 1:50 PM EDT) Anatomical Region Laterality Modality X-Ray Angiography Specimen (Source) Anatomical Location Collection Method / Collectio n Time Received Time / Laterality Volume Narrative 04/10/2022 1:51 PM EDT R Procedure Note Procedure: ?? Percutaneous cholecystosto my tube placement History/indication: ?72 yr old M pat ient w/ diabetes, hypertension, and recent NSTEMI on 02/19 and new heart failu re with EF of 17% status post PCI; now on aspirin and Plavix. ??Patient pre sented with right upper quadrant pain and fevers; CT demonstrated acute c holecystitis. He is referred for cholecystostomy catheter placement as an alternative to surgery. Technique: After obtaining informed cons ent, the RUQ was prepped and draped in a sterile fashion. 1% lidocain e was used as local anesthesia. The patient received split doses of intr avenous fentanyl and versed from the IR nurse while pulse, pressure, end tidal CO2 parameters and oxygen saturation were continuously monitored. A 21 ga ??needle was directed toward th e GB lumen under US guidance. There was the prompt return of thick, rosita us green bile. A 0.018 wire was coiled in the gallbladder lumen under fl uoroscopic guidance. Over a 0.035 Amplatz wire, an 8.5 Fr APD locking loop drain was advanced. The locking loop was formed and the drain connected to bag drainage. The catheter was secured at the skin with a 2-0 nylon sut ure. Complications: ?None immediate; ??EB L=2 cc Medications: ??1% lidocaine (<10 cc); ve rsed 2 mg; fentanyl 100 mcg Contrast: ?? 5 cc non-ionic/omnipaque Fluoroscopy time: ??0.8 minutes Impression: ?US/fluoroscopic guid ed percutaneous cholecystostomy tube placement as extolled above. Attending: ?Michele Ching MD ? I was present during the intraservice t leonardo as documented by the IR Nurse. Arabella Heredia MD IMG IR ORDERABLES (ABNORMAL) Anaerobic Culture (04/10/2022 1:29 PM EDT) [facility] Labs Method Time Signature Anaerobic Few Clostridium JE Culture perfringens (A) [facility] LABORATORY Organism Clostridium JE perfringens (A) [facility] LABORATORY Specimen Anatomical Collection Method Collection Time Receive d Time (Source) Location / / Volume Laterality Fluid 04/10/2022 1:29 PM 2 2:08 EDT PM EDT Comment: acute cholecystitis w/ recent h istory of stent placement on 02/28 on DAPT therefore percutatneous oneyda over lap c hole. Resulting Agency Comment Spec In Lab Fanta Tanner MD MICROBIOLOGY - GENERAL ORDER ROSEY Performing Organization Address City/State/[place] [address] (ABNORMAL) Body Fluid Culture, Aerobic (04/10/2022 1:29 PM EDT) Component Value Ref Test Analysis Performed At [employer] Range Method Time Signature Body Fluid Rare Haemophilus parainfluen sunshine : Beta-lactamase result predicts organism is JE Culture susceptible to ampicillin and penicillin. JEFFERY (A) [facility] LABORATORY Gram Stain Few Neutrophils JE Few Gram Positive Rods [facility] (A) [facility] LABORATORY Organism Haemophilus JE parainfluenzae SILER () [facility] LABORATORY Specimen Anatomical Collection Method Collection Time Receive d Time (Source) Location / / Volume Laterality Fluid 04/10/2022 1:29 PM 2:08 EDT PM EDT Comment: acute cholecystitis w/ recent h istory of stent placement on 02/28 on DAPT therefore percutatneous oneyda over lap c hole. Resulting Agency Comment Spec In Lab Fanta Tanner MD MICROBIOLOGY - GENERAL ORDER ROSEY Performing Organization Address City/State/ZIP Code Phon e Number [address] POCT Glucose (04/10/2022 12:28 PM EDT) athologist Signature POC Glucose 129 65 - 199 [facility] mg/dL [facility] LABORATORY Comment: Supplemental ranges: <140 mg/dL before meals <180 mg/dL all other times of the day Specimen Anatomical Collection Method Collection Time Receive d Time (Source) Location / / Volume Laterality Blood 04/10/2022 12:28 04/10/2022 PM EDT 12:28 PM EDT Arabella Heredia MD POINT OF CARE TEST ORDERABLE S Performing Organization Address City/State/[place] [address] (ABNORMAL) Differential, Automated (04/10/2022 10:55 AM EDT) [facility] gist Method Time Signature Neutrophils % 89.1 % [facility] LABORATORY Neutr Abs (ANC) 10.11 (H) 1.70 - [facility] 6.10 [facility] x10(3)/[facility] L LABORATORY Lymphocytes % 5.0 % [facility] LABORATORY Lymphocytes Abs 0.6 (L) 0.9 - 3.2 [facility] x10(3)/[facility] LABORATORY Monocytes % 3.5 % [facility] LABORATORY Monocyte Abs 0.4 0.3 - 0.9 [facility] x10(3)/[facility] LABORATORY Eosinophils % 0.4 % [facility] LABORATORY Eosinophils Abs 0.0 0.0 - 0.4 [facility] x10(3)/[facility] LABORATORY Basophils % 0.3 % [facility] LABORATORY Basophils Abs 0.0 0.0 - 0.1 [facility] x10(3)/[facility] LABORATORY Immature Gran % 1.70 % [facility] LABORATORY Comment: Immature granulocytes(IG's)percentage an d absolute count will include metamyelocytes, myelocytes, and promyelo cytes. Blood smears from CBCs yielding IG's will be scanned manually for concor dance. If this scan disagrees with the automated IG or if promyelocytes are not ed, a manual differential will be performed. Julianna Gran Abs 0.19 (H) 0.00 - 0.04 x10(3)/[facility] LABORATORY Specimen Anatomical Collection Method Collection Time Receive d Time (Source) Location / / Volume Laterality Blood 04/10/2022 10:55 04/10/2022 AM EDT 11:01 AM EDT Resulting Agency Comment Spec In Lab Jennifer Lockett MD HEMATOLOGY ORDERABLES Performing Organization Address City/State/ZIP Code Phon e Number [place] [id number] HOSPITAL LABORATORY Drive (ABNORMAL) Hemogram (04/10/2022 10:55 AM EDT) Analysis Performed At Patho logist Time Signature WBC 11.3 (H) 4.0 - 9.5 [facility] x10(3)/[facility] LABORATORY RBC 4.18 (L) 4.58 - [facility] 5.54 [facility] x10(6)/[facility] LABORATORY Hemoglobin 13.5 (L) 13.7 - [facility] 16.[facility] g/dL [facility] LABORATORY Hematocrit 39.0 (L) 40.5 - [facility] 48.5 % [facility] LABORATORY MCV 93.3 (H) 82.9 - [facility] 93.1 fL [facility] LABORATORY MCH 32.3 (H) 27.5 - [facility] 32.1 [facility] LABORATORY MCHC 34.6 32.0 - JE GIL 35.7 g/dL [facility] LABORATORY Platelets 145 145 - 357 JE JEFFERY x10(3)/[facility] LABORATORY RDWSD 44.4 36.0 - JE GIL 45.0 [facility] LABORATORY RDWCV 12.9 11.4 - JE GIL 13.8 % [facility] LABORATORY MPV 11.0 7.6 - 12.9 JE GIL [facility] LABORATORY nRBC % Auto 0.0 % [facility] LABORATORY nRBC Abs Auto 0.000 0.000 - JE GIL 0.000 [facility] x10(3)/[facility] LABORATORY Specimen Anatomical Collection Method Collection Time Receive d Time (Source) Location / / Volume Laterality Blood 04/10/2022 10:55 04/10/2022 AM EDT 11:01 AM EDT Resulting Agency Comment Spec In Lab Jennifer Lockett MD HEMATOLOGY ORDERABLES Performing Organization Address City/[facility]/[place] [address] Potassium (04/10/2022 10:55 AM EDT) P athologist Signature Potassium 3.5 3.5 - 5.0 [facility] mmol/L [facility] LABORATORY Comment: Please note: ??Patients with WBC >100,00 0 may have falsely elevated Potassium levels. ??For accurate Potassium quantif ication in these patients send serum separator tube (gold top) for subsequent determinations. ??Contact the Clinical Chemistry Laboratory if there are any qu estions. Specimen Anatomical Collection Method Collection Time Receive d Time (Source) Location / / Volume Laterality Blood 04/10/2022 10:55 04/10/2022 AM EDT 11:01 AM EDT Resulting Agency Comment Spec In Lab Arabella Heredia MD CHEMISTRY ORDERABLES Performing Organization Address City/[facility]/ZIP Code Phon e Number [address] (ABNORMAL) Hepatic Function Panel (04/10/2022 10:55 AM EDT) P athologist Signature Total Protein 6.0 (L) 6.1 - 8.0 [facility] g/dL [facility] LABORATORY Albumin 2.9 (L) 3.2 - 5.2 JE JEFF[place] g/dL [facility] LABORATORY AST 11 0 - 39 [facility] JEFF[place] unit/L [facility] LABORATORY ALT 11 0 - 55 [facility] JEFF[place] unit/L [facility] LABORATORY Alk Phos 61 40 - 130 [facility] [place] unit/L [facility] LABORATORY Total 1.0 0.2 - 1.3 JE [place] Bilirubin mg/dL [facility] LABORATORY Bili, Direct 0.3 0.0 - 0.3 [facility] [place] mg/dL [facility] LABORATORY Specimen Anatomical Collection Method Collection Time Receive d Time (Source) Location / / Volume Laterality Blood 04/10/2022 10:55 04/10/2022 AM EDT 11:01 AM EDT Resulting Agency Comment Spec In Lab Arabella Heredia MD CHEMISTRY ORDERABLES Performing Organization Address City/[facility]/ZIP Code Phon e Number [address] POCT Glucose (04/10/2022 8:54 AM EDT) P athologist Signature POC Glucose 131 65 - 199 [facility] mg/dL [facility] LABORATORY Comment: Supplemental ranges: <140 mg/dL before meals <180 mg/dL all other times of the day Specimen Anatomical Collection Method Collection Time Receive d Time (Source) Location / / Volume Laterality Blood 04/10/2022 8:54 AM 8:54 EDT AM EDT Arabella Hereida MD POINT OF CARE TEST ORDERABLE S Performing Organization Address City/[facility]/ZIP Code Phon e Number [address] Hepatic Function Panel (04/10/2022 6:05 AM EDT) Analysis Performed At Patho logist Time Signature Total Protein 6.2 6.1 - 8.0 JE [place] g/dL [facility] LABORATORY Albumin 3.5 3.2 - 5.2 [facility] JEFFERY g/dL [facility] LABORATORY AST Not Perf 0 - 39 [facility] LABORATORY Comment: Unable to quantitate due to sample hemol ysis. ??Sample redraw suggested. Called by: RAOUL, Read back by: Sania mosqueda, Date/Time:04/10/22 07:20. ALT Not Perf 0 - 55 [facility] LABORATORY Comment: Unable to quantitate due to sample hemol ysis. ??Sample redraw suggested. Called by: RAOUL, Read back by: Sania mosqueda, Date/Time:04/10/22 07:20. Alk Phos 63 40 - 130 unit/L [facility] LABORATORY Total Bilirubin 1.1 0.2 - 1.3 mg/dL [facility] LABORATORY Bili, Direct Not Perf 0.0 - 0.3 [facility] LABORATORY Comment: Unable to quantitate due to sample hemol ysis. ??Sample redraw suggested. Called by: RAOUL, Read back by: Sania mosqueda, Date/Time:04/10/22 07:20. Specimen Anatomical Collection Method Collection Time Receive d Time (Source) Location / / Volume Laterality Blood 04/10/2022 6:05 AM 2 6:12 EDT AM EDT Resulting Agency Comment Spec In Lab Arabella Heredia MD CHEMISTRY ORDERABLES Performing Organization Address City/State/ZIP Code Phon e Number [address] (ABNORMAL) pro-Brain Natriuretic Peptide (04/10/2022 6:05 AM EDT) P athologist Signature ProBNP 2,214 (H) <=124 [facility] pg/mL [facility] LABORATORY Specimen Anatomical Collection Method Collection Time Receive d Time (Source) Location / / Volume Laterality Blood 04/10/2022 6:05 AM 2 6:12 EDT AM EDT Resulting Agency Comment Spec In Lab Arabella Heredia MD CHEMISTRY ORDERABLES Performing Organization Address City/[facility]/ZIP Code Phon e Number [address] (ABNORMAL) Phosphorus (04/10/2022 6:05 AM EDT) P athologist Signature Phosphorus 2.2 (L) 2.5 - 4.5 [facility] mg/dL [facility] LABORATORY Specimen Anatomical Collection Method Collection Time Receive d Time (Source) Location / / Volume Laterality Blood 04/10/2022 6:05 AM 2 6:12 EDT AM EDT Resulting Agency Comment Spec In Lab Arabella Heredia MD CHEMISTRY ORDERABLES Performing Organization Address City/[facility]/ZIP Code Phon e Number [address] Magnesium (04/10/2022 6:05 AM EDT) athologist Signature Magnesium 0.91 0.69 - 1.07 [facility] mmol/L [facility] LABORATORY Specimen Anatomical Collection Method Collection Time Receive d Time (Source) Location / / Volume Laterality Blood 04/10/2022 6:05 AM 2 6:12 EDT AM EDT Resulting Agency Comment Spec In Lab Arabella Heredia MD CHEMISTRY ORDERABLES Performing Organization Address City/[facility]/ZIP [facility] [place] [address] (ABNORMAL) Basic Metabolic Panel (non-fasting) (04/10/2022 6:05 AM EDT) athologist Signature Glucose Lvl 124 65 - 199 [facility] mg/dL [facility] LABORATORY Comment: Diabetes: >=200 mg/dL plus symp toms BUN 24 (H) 10 - 20 mg/dL [facility] LABORATORY Creatinine 1.01 0.80 - 1.50 mg/dL [facility] LABORATORY Sodium 134 (L) 135 - 145 mmol/L [facility] LABORATORY Potassium Not Perf 3.5 - 5.0 [facility] LABORATORY Comment: Unable to quantitate due to sample hemol ysis. ??Sample redraw suggested. Called by: , Read back by: Sania mosqueda, Date/Time:04/10/22 07:20. Please note: ??Patients with WBC >100,00 0 may have falsely elevated Potassium levels. ??For accurate Potassium quantif ication in these patients send serum separator tube (gold top) for subsequent determinations. ??Contact the Clinical Chemistry Laboratory if there are any qu estions. Chloride 96 (L) 98 - 107 mmol/L [facility] LABORATORY CO2 26 22 - 31 mmol/L [facility] LABORATORY Anion Gap 12 5 - 15 mmol/L [facility] LABORATORY Calcium 8.6 8.5 - 10.5 mg/dL [facility] LABORATORY Estimated GFR 80 >=60 mL/min/1.73 m?? [facility] LABORATORY Comment: This patient's estimated [...] (Source) Location / / Volume Laterality Blood 04/10/2022 6:05 AM 2 6:12 EDT AM EDT Resulting Agency Comment Spec In Lab Arabella Heredia MD CHEMISTRY ORDERABLES Performing Organization Address City/State/ZIP Code Phon e Number [address] POCT Glucose (04/10/2022 3:39 AM EDT) P athologist Signature POC Glucose 133 65 - 199 [facility] mg/dL [facility] LABORATORY Comment: Supplemental ranges: <140 mg/dL before meals <180 mg/dL all other times of the day Specimen Anatomical Collection Method Collection Time Receive d Time (Source) Location / / Volume Laterality Blood 04/10/2022 3:39 AM 2 3:39 EDT AM EDT Arabella Heredia MD POINT OF CARE TEST ORDERABLE S Performing Organization Address City/State/[place] [address] POCT Glucose (04/10/2022 12:00 AM EDT) athologist Signature POC Glucose 132 65 - 199 [facility] [place] mg/dL [facility] LABORATORY Comment: Supplemental ranges: <140 mg/dL before meals <180 mg/dL all other times of the day Specimen (Source) Anatomical Collection Method Collection Time Re ceived Time Location / / Volume Laterality Blood 04/10/2022 04/10/2022 12:0 0 AM EDT Arabella Heredia MD POINT OF CARE TEST ORDERABLE S Performing Organization Address City/State/ZIP Code Phon e Number [address] POCT Glucose (04/09/2022 7:37 PM EDT) athologist Signature POC Glucose 117 65 - 199 [facility] [place] mg/dL [facility] LABORATORY Comment: Supplemental ranges: <140 mg/dL before meals <180 mg/dL all other times of the day Specimen Anatomical Collection Method Collection Time Receive d Time (Source) Location / / Volume Laterality Blood 04/09/2022 7:37 PM 2 7:37 EDT PM EDT Arabella Heredia MD POINT OF CARE TEST ORDERABLE S Performing Organization Address City/[facility]/ZIP Code Phon e Number [address] POCT Glucose (04/09/2022 4:50 PM EDT) athologist Signature POC Glucose 140 65 - 199 [facility] mg/dL [facility] LABORATORY Comment: Supplemental ranges: <140 mg/dL before meals <180 mg/dL all other times of the day Specimen Anatomical Collection Method Collection Time Receive d Time (Source) Location / / Volume Laterality Blood 04/09/2022 4:50 PM 2 4:50 EDT PM EDT Arabella Heredia MD POINT OF CARE TEST ORDERABLE S Performing Organization Address City/State/[place] [address] ECHOCARDIOGRAM LMTD W/O CON W LMTD SPEC DOPP, COLOR DOPP (04/09/2022 2:16 PM EDT) P athologist Signature EF 45 HEARTLAB SYSTEM Anatomical Region Laterality Modality Cardiac Other Specimen (Source) Anatomical Collection Method Collection Time Re ceived Time Location / / Volume Laterality 04/09/2022 12:50 PM EDT Narrative 04/09/2022 3:20 PM EDT ? Echocardiogram Report Name: GILLIAN BRANCH ? Study Date: 04/09/2022 12:50 PMBP: 109/62 mmHg ? [facility] 1950 ? Height: 193 cm ? Account: [id number] Age: 72 yrs ? Weight: 101 kg Gender: Male ?BSA: 2.3 m2 Ordering Physician: ARABELLA HEREDIA Referring Physician: MARLI PURCELL Performed By: ABBY Dejesus Reason For Study: Acute systolic congest ashley heart failure Exam Location[place] [facility] [place] Interpretation Summary Limited study to assess LV function. The LV is moderately dilated with mildly reduced systolic function. The estimated LVEF is 45% with mild global hypokinesis . Normal RV size and function. There is no hemodynamically significant valvular disease. Impression: When compared to previous ec hocardiogram from 02/26/2022, there has been an improvement in global and region al LV systolic function. Procedure Limited - 48446. Doppler - 37931. Color Doppler - 91799. Satisfactory quality. There is normal sinus rhythm. Left Ventricle Left ventricle is moderately dilated. A false tendon is identified. Left ventricular systolic function is moderat miroslava reduced. Left ventricular ejection fraction is estimated visually at 30% - 35%. Moderate global hypokinesis. Right Ventricle The right ventricle is of normal size. R ight ventricular systolic function is normal. Aortic Valve There is no aortic stenosis. There is no aortic regurgitation. Mitral Valve There is no mitral stenosis. There is tr darcy mitral regurgitation. Tricuspid Valve There is no tricuspid stenosis. There is trace tricuspid regurgitation. Pericardium/Pleural There is no pericardial effusion. Epicar dial fat is present. Hemodynamics Pulmonary artery hypertension could not be assessed due to inadequate tricuspid regurgitation jet. ? 2D Measurements ? Volumes ?T APSE_phl: 1.8 cm ?EDV Biplane: 195.5 ml ? EDV Biplane Index: 84.3 ? ESV Biplane: 108.1 ml ? ESV Biplane Index: 46.6 I ?WMSI = 2.00 ? % Normal = 0 ?Segments ??Size X - Cannot ?2 - ?4 - ?1-2 ? small Interpret ?1 - Normal ?? Hypokinetic 3 - Akinetic Dyskinetic ?? 3-5 ? moderate 5 - ? 6-14 ?large Aneurysmal ?15-16 ?? diffuse Procedure Note Grant Aguilar MD - 04/09/2022Forma tting of this note might be different from the original. Echocardiogram Report Name: GILLIAN BRANCH Study Date: 04/09/2022 12:50 PMBP: 109/62 mmHg Patient Location: 4WST^4 08^A : 1950 Height: 193 cm Account: [id number] Age: 72 yrs Weight: 101 kg Gender: Male BSA: 2.3 m2 Ordering Physician: ARABELLA HEREDIA Referring Physician: MARLI PURCELL Performed By: ABBY Dejesus Reason For Study: Acute systolic congest ashley heart failure Exam Location: [facility] [place]. Interpretation Summary Limited study to assess LV function. The LV is moderately dilated with mildly reduced systolic function. The estimated LVEF is 45% with mild global hypokinesis . Normal RV size and function. There is no hemodynamically significant valvular disease. Impression: When compared to previous ec hocardiogram from 02/26/2022, there has been an improvement in global and region al LV systolic function. Procedure Limited - 24066. Doppler - 56299. Color Doppler - 02631. Satisfactory quality. There is normal sinus rhythm. Left Ventricle Left ventricle is moderately dilated. A false tendon is identified. Left ventricular systolic function is moderat miroslava reduced. Left ventricular ejection fraction is estimated visually at 30% - 35%. Moderate global hypokinesis. Right Ventricle The right ventricle is of normal size. R ight ventricular systolic function is normal. Aortic Valve There is no aortic stenosis. There is no aortic regurgitation. Mitral Valve There is no mitral stenosis. There is tr darcy mitral regurgitation. Tricuspid Valve There is no tricuspid stenosis. There is trace tricuspid regurgitation. Pericardium/Pleural There is no pericardial effusion. Epicar dial fat is present. Hemodynamics Pulmonary artery hypertension could not be assessed due to inadequate tricuspid regurgitation jet. 2D Measurements Volumes TAPSE_phl: 1.8 cm EDV Biplane: 195.5 ml EDV Biplane Index: 84.3 ESV Biplane: 108.1 ml ESV Biplane Index: 46.6 I WMSI = 2.00 % Normal = 0 Segments Size X - Cannot 2 - 4 - 1-2 small Interpret 1 - Normal Hypokinetic 3 - Devyn netic Dyskinetic 3-5 moderate 5 - 6-14 large Aneurysmal 15-16 diffuse Arabella Heredia MD ECHO ORDERABLES EKG 12 Lead (04/09/2022 12:25 PM EDT) Component Value Ref Range Test Analysis Performed Pathologis t Method Time At Signature Ventricular rate 87 BPM MUSE SYSTEM Atrial Rate 87 BPM MUSE SYSTEM P-R Interval 172 ms MUSE SYSTEM QRS Duration 122 ms MUSE SYSTEM Q-T Interval 340 ms MUSE SYSTEM QTC Calculated 409 ms MUSE SYSTEM (Bezet) Calculated P [place] 47 degrees MUSE SYSTEM Calculated R [place] 43 degrees MUSE SYSTEM Calculated T [place] 75 degrees MUSE SYSTEM INTERPRETATION Normal sinus rhythm MUSE SYSTEM Cannot rule out Septal infarct (cited on or before 09-Apr-20) Abnormal ECG When compared with ECG of 28-FEB-2022 06:15, Nonspecific T wave abnormality no longer evident in Inferior leads Confirmed by MD ANETTE, OXANA ([id number]) on 04/09/2022 5:25:18 PM Specimen Anatomical Collection Method Collection Time Receive d Time (Source) Location / / Volume Laterality 04/09/2022 12:25 04/09/2022 5:25 PM EDT PM EDT Arabella Heredia MD ECG ORDERABLES Performing Organization Address City/State/ZIP Code Phon e Number MUSE SYSTEM POCT Glucose (04/09/2022 12:13 PM EDT) athologist Signature POC Glucose 162 65 - 199 [facility] mg/dL [facility] Comment: Supplemental ranges: <140 mg/dL before meals <180 mg/dL all other times of the day Specimen Anatomical Collection Method Collection Time Receive d Time (Source) Location / / Volume Laterality Blood 04/09/2022 12:13 04/09/2022 PM EDT 12:13 PM EDT Arabella Heredia MD POINT OF CARE TEST ORDERABLE S Performing Organization Address City/State/[place] [address] (ABNORMAL) Differential, Manual (04/09/2022 11:23 AM EDT) Patholo gist Method Time Signature Neutrophil % 85 % [facility] Lymphocyte % 10 % [facility] Monocyte % 4 % [facility] Metamyelo % 1 % [facility] Neutrophil Abs 12.1 (H) 1.7 - 6.1 [facility] x10(3)/[facility] LABORATORY Neutr Abs (ANC) 12.06 (H) 1.70 - [facility] 6.10 [facility] x10(3)/[facility] LABORATORY Lymphocyte Abs 1.4 0.9 - 3.2 [facility] x10(3)/[facility] LABORATORY Monocyte Abs 0.6 0.3 - 0.9 [facility] x10(3)/[facility] LABORATORY Metamyelo Abs 0.1 (H) 0.0 - 0.0 [facility] x10(3)/[facility] LABORATORY Tot Diff Cell 100 [facility] Estimate Decreased [facility] RBC Morphology Normal [facility] Dohle Bodies Present [facility] Platelet Clumps Present [facility] Specimen Anatomical Collection Method Collection Time Receive d Time (Source) Location / / Volume Laterality Blood 04/09/2022 11:23 04/09/2022 AM EDT 11:35 AM EDT Resulting Agency Comment Spec In Lab Karina Asif MD HEMATOLOGY ORDERABLES Performing Organization Address City/State/[place] [address] (ABNORMAL) Hemogram (04/09/2022 11:23 AM EDT) Analysis Performed At Patho logist Time Signature WBC 14.2 (H) 4.0 - 9.5 [facility] x10(3)/[facility] LABORATORY RBC 4.70 4.58 - [facility] 5.54 [facility] x10(6)/[facility] LABORATORY Hemoglobin 15.0 13.7 - [facility] 16.5 g/dL [facility] Hematocrit 43.8 40.5 - [facility] 48.[facility] % [facility] MCV 93.2 (H) 82.9 - [facility] 93.1 fL [facility] MCH 31.9 27.5 - [facility] 32.1 pg [facility] MCHC 34.2 32.0 - [facility] 35.7 g/dL [facility] Platelets 129 (L) 145 - 357 [facility] [place] x10(3)/[facility] LABORATORY RDWSD 44.6 36.0 - [facility] [place] 45.0 [facility] LABORATORY RDWCV 13.0 11.4 - [facility] [place] 13.8 % [facility] MPV 11.4 7.6 - 12.9 [facility] [place] [facility] LABORATORY nRBC % Auto 0.0 % [facility] nRBC Abs Auto 0.000 0.000 - [place] 0.000 [facility] x10(3)/[facility] LABORATORY Specimen Anatomical Collection Method Collection Time Receive d Time (Source) Location / / Volume Laterality Blood 04/09/2022 11:23 04/09/2022 AM EDT 11:35 AM EDT Resulting Agency Comment Spec In Lab Karina Asif MD HEMATOLOGY ORDERABLES Performing Organization Address City/State/[place] [address] Troponin (04/09/2022 11:23 AM EDT) P athologist Signature Troponin-T <0.01 0.00 - 0.00 [facility] [place] ng/mL [facility] Comment: The 99th percentile for Troponin T is le ss than 0.01 ng/mL, any detectable cTnT concentration using this assay should be considered elevated. According to the third universal definit ion of myocardial infarction the following criteria with a clinical prese ntation consistent with acute myocardial ischemia meets the diagnosis for a myocardial infarction ([place]). Detection of a rise and/or fall of [...] additional sample may be indicated. Reference: Third [place] Definition of Myocardial Infarction. Journal of the [place] [employer] 2012;60:1581-98 Specimen Anatomical Collection Method Collection Time Receive d Time (Source) Location / / Volume Laterality Blood 04/09/2022 11:23 04/09/2022 AM EDT 11:35 AM EDT Resulting Agency Comment Spec In Lab Arabella Heredia MD CHEMISTRY ORDERABLES Performing Organization Address City/[facility]/[place] [address] (ABNORMAL) pro-Brain Natriuretic Peptide (04/09/2022 11:23 AM EDT) P athologist Signature ProBNP 3,680 (H) <=124 [facility] Specimen Anatomical Collection Method Collection Time Receive d Time (Source) Location / / Volume Laterality Blood 04/09/2022 11:23 04/09/2022 AM EDT 11:35 AM EDT Resulting Agency Comment Spec In Lab Arabella Heredia MD CHEMISTRY ORDERABLES Performing Organization Address City/[facility]/[place] [address] (ABNORMAL) Comprehensive metabolic panel (non-fasting) (04/09/2022 11:23 AM EDT) P athologist Signature Glucose Lvl 178 65 - 199 [facility] mg/dL [facility] Comment: Diabetes: >=200 mg/dL plus symp toms BUN 24 (H) 10 - 20 mg/dL [facility] Creatinine 1.09 0.80 - 1.50 mg/dL [facility] Sodium 136 135 - 145 mmol/L [facility] Potassium 4.3 3.5 - 5.0 mmol/L [facility] Comment: Please note: ??Patients with WBC >100,00 0 may have falsely elevated Potassium levels. ??For accurate Potassium quantif ication in these patients send serum separator tube (gold top) for subsequent determinations. ??Contact the Clinical Chemistry Laboratory if there are any qu estions. Chloride 97 (L) 98 - 107 mmol/L [facility] CO2 26 22 - 31 mmol/L [facility] Anion Gap 13 5 - 15 mmol/L [facility] Calcium 8.6 8.5 - 10.5 mg/dL [facility] Total Protein 6.2 6.1 - 8.0 g/dL [facility] Albumin 3.6 3.2 - 5.2 g/dL [facility] AST 12 0 - 39 unit/L [facility] ALT 15 0 - 55 unit/L [facility] Alk Phos 55 40 - 130 unit/L [facility] Total Bilirubin 1.3 0.2 - 1.3 mg/dL [facility] Estimated GFR 73 >=60 mL/min/1.73 m?? [facility] Comment: This patient's estimated [...] (Source) Location / / Volume Laterality Blood 04/09/2022 11:23 04/09/2022 AM EDT 11:35 AM EDT Resulting Agency Comment Spec In Lab Arabella Heredia MD CHEMISTRY ORDERABLES Performing Organization Address City/State/[place] [address] Phosphorus (04/09/2022 11:23 AM EDT) P athologist Signature Phosphorus 2.9 2.5 - 4.5 [place] mg/dL [facility] Specimen Anatomical Collection Method Collection Time Receive d Time (Source) Location / / Volume Laterality Blood 04/09/2022 11:23 04/09/2022 AM EDT 11:35 AM EDT Resulting Agency Comment Spec In Lab Arabella Heredia MD CHEMISTRY ORDERABLES Performing Organization Address City/[facility]/ZIP Code Phon e Number [address] Magnesium (04/09/2022 11:23 AM EDT) athologist Signature Magnesium 0.78 0.69 - 1.07 [place] mmol/L [facility] Specimen Anatomical Collection Method Collection Time Receive d Time (Source) Location / / Volume Laterality Blood 04/09/2022 11:23 04/09/2022 AM EDT 11:35 AM EDT Resulting Agency Comment Spec In Lab Arabella Heredia MD CHEMISTRY ORDERABLES Performing Organization Address City/[facility]/ZIP [facility] [place] [address] documented in this encounter Visit Diagnoses Diagnosis Cholecystitis Cholecystitis, unspecified Acute systolic congestive heart failure Acute systolic heart failure Cholecystitis Cholecystitis, unspecified Cholecystitis Cholecystitis, unspecified Acute systolic congestive heart failure Acute systolic heart failure documented in this encounter Admitting Diagnoses Diagnosis Cholecystitis Cholecystitis, unspecified documented in this encounter Administered Medications Inactive Administered Medications - up to 3 most recent administrations Medication Order MAR Action Action Date Dose Rate Site acetaminophen (Tylenol) tablet 975 Given 04/10/2022 5:04 PM EDT 975 mg mg 975 mg, Oral, EVERY 8 HOURS PRN, Starting on Sat04/09/22 at 1053, Until Sat04/11/22 at 1808, Pain, Maximum dose of acetaminophen is 4000 mg from all sources in 24 hours. When ordered for pain, acetaminophen should be given even when other ordered pain medications are indicated. , Routine aspirin chewable tablet 81 mg Given 04/11/2022 8:44 AM EDT 81 mg 81 mg, Oral, DAILY, First dose (after last modification) on Sat04/09/22 at 1500, Until Discontinued, Routine Given 04/10/2022 9:59 AM EDT 81 mg Given 04/09/2022 3:09 PM EDT 81 mg bisacodyl EC (Dulcolax) tablet 10 mg 10 mg, Oral, 2 TIMES DAILY PRN, Starting on Sat04/09/22 at 1052, Until Sat04/11/22 at 1808, Constipation, DO NOT CRUSH OR OPEN Admini ster if no bowel movement within 48 hours to achieve: (1) One netta l movement at least every 48 hours, AND (2) without straining. If multiple PRN bowel medications o rdered, start with polyethylene glycol, then lactulose, then oral bisacod yl, then bisacodyl suppository, then magnesium citrate, the n tap water enema. Multiple medications may be given concomitantly for constipation., Routine clopidogreL (Plavix) tablet 75 mg Given 04/11/2022 8:44 AM EDT 75 mg 75 mg, Oral, DAILY, First dose (after last modification) on Sat04/09/22 at 1500, Until Discontinued, Routine Given 04/10/2022 9:59 AM EDT 75 mg Given 04/09/2022 3:09 PM EDT 75 mg dextrose 10% infusion 250 mL, at 1,000 mL/hr, Intravenous, GONZALO RY 30 MIN PRN, Starting on Sat04/09/22 at 1212, Until Sat04/11/22 at 1808, For BG 50-70 mg/dL: Oral treatment preferred: [...] for the duration of the active insulin. docusate sodium (Colace) capsule 100 mg Given 04/10/2022 8:13 PM EDT 100 mg 100 mg, Oral, 2 TIMES DAILY, First dose on Sat04/09/22 at 1145, Until Discontinued, Routine Given 04/09/2022 8:13 PM EDT 100 mg Given 04/09/2022 12:09 PM EDT 100 mg enoxaparin (Lovenox) (40 mg/0.4 mL) Given 04/10/2022 8:13 PM EDT 40 mg subcutaneous injection 40 mg 40 mg, Subcutaneous, NIGHTLY, First dose on Sat04/09/22 at 2100, Until Discontinued, Routine Given 04/09/2022 8:13 PM EDT 40 mg escitalopram (Lexapro) tablet 10 mg Given 04/11/2022 8:44 AM EDT 10 mg 10 mg, Oral, DAILY, First dose on Sat04/09/22 at 1130, Until Discontinued, Routine Given 04/10/2022 9:59 AM EDT 10 mg fentaNYL (pf) (50 mcg/mL) multi-dose Given 04/10/2022 1:15 PM ED T 50 mcg injection 25-50 mcg 25-50 mcg, Intravenous, EVERY 3 MIN PRN, Starting on Sat04/10/22 at 1221, Until Sat04/11/22 at 1808, Pain, per unit protocol, - Start dose [...] and verbal order., Angio/IR (Intra-Procedure), Routine Given 04/10/2022 1:10 PM EDT 50 mcg flumazeniL (Romazicon) (0.1 mg/mL) injec tion 0.2 mg 0.2 mg, Intravenous, EVERY 2 MIN PRN, 5 doses, Startin g on Sat04/10/22 at 1221, Until Sat04/11/22 at 1808, for respiratory rate less t acuna 8, SpO2 less than 90% despite supplement O2, or patient unable to arouse., Give every 2 minutes IV PRN for total of 5 doses for respiratory rat e less than 8, SpO2 less than 90% despite supplement O2, or patient unable to arou se. , Angio/IR (Intra-Procedure), Routine flumazeniL (Romazicon) (0.1 mg/mL) injec tion 0.2 mg 0.2 mg, Intravenous, EVERY 2 MIN PRN, 5 doses, Startin g on Sat04/10/22 at 1227, Until Sat04/11/22 at 1808, for respiratory rate less t acuna 8, SpO2 less than 90% despite supplement O2, or patient unable to arouse., Give every 2 minutes IV PRN for total of 5 doses for respiratory rat e less than 8, SpO2 less than 90% despite supplement O2, or patient unable to arou se. , Angio/IR (Intra-Procedure), Routine furosemide (Lasix) (10 mg/mL) injection 40 mg Given 04/09/2022 8:12 PM EDT 40 mg 40 mg, Intravenous, ONCE, 1 dose, On Sat04/09/22 at 2015 gabapentin (Neurontin) capsule 300 mg Given 04/11/2022 8:44 AM EDT 300 mg 300 mg, Oral, 3 TIMES DAILY, First dose on Sat04/09/22 at 1130, Until Discontinued, Routine Given 04/10/2022 8:13 PM EDT 300 mg Given 04/10/2022 9:59 AM EDT 300 mg glucagon (Glucagen) (1 mg/mL) injection solution 1 mg 1 mg, Intramuscular, EVERY 30 MIN PRN, S tarting on Sat04/09/22 at 1212, Until Sat04/11/22 at 1808, Low blood sugar, For BG 50-70 mg/dL: [...] Buccal, EVERY 30 MIN PRN, Starting on Sat04/09/22 at 1212, Until Sat04/11/22 at 1808, Low blood sug ar, For BG 50-70 mg/dL: Oral treatment preferred: [...] grams.), Routine insulin lispro (HumaLOG;Admelog) (100 Given 04/11/2022 11:35 AM EDT 2 Units unit/mL) subcutaneous injection vial 1-4 Units 1-4 Units, Subcutaneous, EVERY 4 HOURS SCHEDULED, First dose on Sat04/09/22 at 1300, Until Discontinued, CORRECTION BOLUS [1-4 Units] Sensitive [...] 240 mg/dL in 2 hours., Routine Given 04/10/2022 8:15 PM EDT 2 Units Given 04/09/2022 12:30 PM EDT 1 Units lactated ringers infusion New Bag 04/11/2022 4:21 AM EDT 50 mL/hr 50 mL/hr 50 mL/hr, Intravenous, CONTINUOUS, Starting on Sat04/09/22 at 1145, Until Sat04/11/22 at 0535 New Bag 04/10/2022 10:02 AM EDT 50 mL/hr 50 mL/hr New Bag 04/09/2022 11:47 AM EDT 50 mL/hr 50 mL/hr lidocaine (Xylocaine) 1% (10 mg/mL) inje ction 3 mg 3 mg (0.3 mL), Subcutaneous, ONCE PRN, 1 dose, Startin g on Sat04/09/22 at 1050, Until Sat04/11/22 at 1808, for discomfort with PIV ins ertion, Routine lidocaine (Xylocaine) 1% (10 mg/mL) inje ction 3 mg 3 mg (0.3 mL), Subcutaneous, ONCE PRN, 1 dose, Startin g on Sat04/10/22 at 1221, Until Sat04/11/22 at 1808, for discomfort with PIV ins ertion, Angio/IR (Day of Procedure), Routine losartan (Cozaar) tablet 50 mg Given 04/11/2022 8:44 AM EDT 50 mg 50 mg, Oral, DAILY, First dose on Sat04/09/22 at 1130, Until Discontinued, Routine Given 04/10/2022 9:59 AM EDT 50 mg melatonin tablet 3 mg Given 04/10/2022 8:13 PM EDT 3 mg 3 mg, Oral, NIGHTLY, First dose on Sat04/09/22 at 2100, Until Discontinued, Routine Given 04/09/2022 8:13 PM EDT 3 mg metoprolol succinate XL (Toprol-XL) tablet 50 Given 8:44 AM EDT 50 mg mg 50 mg, Oral, DAILY, First dose on Sat04/09/22 at 1130, Until Discontinued, DO NOT CRUSH OR OPEN, Routine Given 04/10/2022 9:58 AM EDT 50 mg midazolam (pf) (Versed) (1 mg/mL) multi-dose Given 04/10/2022 1: 15 PM EDT 1 mg injection 0.5-1 mg 0.5-1 mg, Intravenous, EVERY 3 MIN PRN, Starting on Sat04/10/22 at 1227, Until Sat04/11/22 at 1808, Sleep, - Start dose; 1 mg (Reduce dose to 0.5 mg if history of sedation sensitivity). - Titration dose: 0.5 mg - 1 mg (based on patient response) every 3 minutes PRN to obtain RASS score of -3. Maximum dose: 1 mg per dose, 5 mg/hour. For use in Interventional Radiology (IR) only for procedural sedation with direct provider supervision and verbal order., Angio/IR (Intra-Procedure), Routine Given 04/10/2022 1:10 PM EDT 1 mg naloxone (NARCAN) injection 1 mg/mL 0.1 mg 0.1 mg, Intravenous, EVERY 2 MIN PRN, St arting on Sat04/10/22 at 1221, Until Sat04/11/22 at 1808, Opioid Reversal, Give e very 2 minutes PRN for opioid reversal, for respiratory rate less than 8 per minute, SpO2 less than 90% despite supplement O2, or patient unable to arouse. Maximum dose of 0.8 mg in tra-procedure., Angio/IR (Intra-Procedure), Routine ondansetron (pf) (Zofran) (2 mg/mL) inje ction 4 mg 4 mg, Intravenous, EVERY 8 HOURS PRN, St arting on Sat04/09/22 at 1053, Until Sat04/11/22 at 1808, Nausea pantoprazole EC (Protonix) tablet 20 mg Given 04/11/2022 8:44 AM EDT 20 mg 20 mg, Oral, DAILY, First dose on Sat04/09/22 at 1130, Until Discontinued, Do not crush or chew Given 04/10/2022 9:59 AM EDT 20 mg piperacillin-tazobactam (Zosyn) New Bag 04/11/2022 4:16 AM 3.375 g 12.5 mL/hr 3.375 g vial attach to sodium EDT chloride 0.9% 50 mL Mini-Bag Plus 3.375 g, Intravenous, EVERY 8 HOURS, First dose on Sat04/09/22 at 1200, Until Discontinued, Administer over 4 Hours, Warning Vesicant/Irritant Medication Do not administer or Y-site with lactated ringers., Indication for (Active or Suspected): GI/Intra-abdominal New Bag 04/10/2022 8:13 PM EDT 3.375 g 12.5 mL/hr New Bag 04/10/2022 2:39 PM EDT 3.375 g 12.5 mL/hr polyethylene glycoL (Miralax) packet 17 g 17 g, Oral, DAILY PRN, Starting on Sat at 1052, Until Sat04/11/22 at 1808, Constipation, Administer if no bowel mov ement within 48 hours to achieve: (1) One bowel movement at least every 48 hours, AND (2) without straining. If multiple PRN bowel medications ordered, start with polyethylene gly col, then lactulose, then oral bisacodyl, then bisacodyl supposito ry, then magnesium citrate, then tap water enema. Multiple medications may be given concomitantly for constipation., Routine rosuvastatin (Crestor) tablet 10 mg 10 mg, Oral, EVERY EVENING, First dose o n Sat04/11/22 at 1700, Until Discontinued, Routine sodium chloride 0.9 % (flush) (BD PosiFl us Normal Saline 0.9) flush 10 mL 10 mL, Intravenous, DAILY PRN, Starting on Sat04/10/22 at 1221, Until Sat04/11/22 at 1808, For use when accessing Implantable Port, Barbara o/IR (Day of Procedure), Routine sodium chloride 0.9 % (flush) (BD PosiFlush Given 04/11/2022 8:4 5 AM EDT 5 mLs Normal Saline 0.9) flush 5 mL 5 mL, Intravenous, 2 TIMES DAILY, First dose on Sat04/09/22 at 1145, Until Discontinued, Routine Given 04/10/2022 8:20 PM EDT 10 mLs Given 04/10/2022 10:00 AM EDT 5 mLs sodium chloride 0.9 % (flush) (BD PosiFlush Given 04/11/2022 8:4 4 AM EDT 5 mLs Normal Saline 0.9) flush 5 mL 5 mL, Intravenous, 2 TIMES DAILY, First dose on Sat04/10/22 at 1315, Until Discontinued, Angio/IR (Day of Procedure), Routine Given 04/10/2022 8:20 PM EDT 10 mLs sodium chloride 0.9 % (flush) (BD PosiFl ush Normal Saline 0.9) flush 5-20 mL 5-20 mL, Intravenous, EVERY 1 MIN PRN, S tarting on Sat04/09/22 at 1050, Until Sat04/11/22 at 1808, flush, Flush pertains t o all indwelling lines. Flush per protocol found in the job aid using the link [employer] on this medication record., Routine sodium chloride 0.9 % (flush) (BD PosiFl ush Normal Saline 0.9) flush 5-20 mL 5-20 mL, Intravenous, EVERY 1 MIN PRN, S tarting on Sat04/10/22 at 1221, Until Sat04/11/22 at 1808, flush, Flush pertains t o all indwelling lines. Flush per protocol found in the job aid using the link [employer] on this medication record., Angio/IR (Day of Procedure), Routine spironolactone (Aldactone) tablet 12.5 m g Given 04/11/2022 8:43 AM EDT 12.5 mg 12.5 mg, Oral, DAILY, First dose on Sat04/09/22 at 1130, Until Discontinued, DO NOT SPLIT, CRUSH OR OPEN, Routine Given 04/10/2022 10:01 AM EDT 12.5 mg documented in this encounter Active and Recently Administered Medications Times are shown in EDT. Scheduled Medication Order 04/09/2022 04/10/2022 04/11/2022 aspirin chewable tablet 81 mg 1509 (Given - Provider: Renita Pool RN) 0959 (Given - Provider: Noris Cason RN) 0844 (Given - Provider: Noris Cason RN) 81 mg, Oral, DAILY, First dose (after la st modification) on Sat04/09/22 at 1500, Until Discontinued, Routine clopidogreL (Plavix) tablet 75 mg 1509 (Given - Provider: Ben Pool RN) 0959 (Given - Provider: Noris Cason RN) 0844 (Given - Provider: Noris Cason RN) 75 mg, Oral, DAILY, First dose (after la st modification) on Sat04/09/22 at 1500, Until Discontinued, Routine docusate sodium (Colace) capsule 100 mg 1209 (Given - Provider: Renita Pool RN)2012 (Given - Provider: Kale Gongora RN) 0958 (Hold - Provider: Noris Cason RN - Reason: Patient/family refused)2012 (Given - Provider: Kale Gongora RN) 0900 (Not Given - Provider: Noris lew RN - Reason: See comment) 100 mg, Oral, 2 TIMES DAILY, First dose on Sat04/09/22 at 1145, Until Discontinued, Routine enoxaparin (Lovenox) (40 mg/0.4 mL) subcutaneous injec tion 40 mg 2012 (Given - Provider: Kale Gongora RN) 2012 (Given - Provider: Kale Gongora RN) 40 mg, Subcutaneous, NIGHTLY, First dose on Sat04/09/22 at 2100, Until Discontinued, Routine escitalopram (Lexapro) tablet 10 mg 1130 (Not Given - Provider: Renita Pool RN - Reason: See comment - Comment: pt was given meds at [facility] prior to transfer - but unknown what they were.) 0959 (Given - Provider: Noris Cason RN) 0844 (Given - Provider: Noris Casno RN) 10 mg, Oral, DAILY, First dose on Sat at 1130, Until Discontinued, Routine furosemide (Lasix) (10 mg/mL) injection 40 mg (COMPLET ED) 2011 (Given - Provider: Kale Gongora RN) 40 mg, Intravenous, ONCE, 1 dose, On Sat04/09/22 at 2015 gabapentin (Neurontin) capsule 300 mg 1211 (Not Given - Provider: Renita Pool RN - Reason: See comment - Comment: med due at 1500, will wait and stay on schedule.)1509 (Given - Provider: Renita Pool RN)2012 (Given - Provider: Kale Gongora RN) 0959 (Given - Provider: Noris Cason, LONA)1500 (Not Given - Provider: Noris Cason RN - Reason: Patient/family refused - Comment: AM dose given late per PTs request. Doesnt want to take it right now)2012 (Given - Provider: Kale Gongora RN) 0844 (Given - Provider: Noris Cason RN)1500 (Due) 300 mg, Oral, 3 TIMES DAILY, First dose on Sat04/09/22 at 1130, Until Discontinued, Routine insulin lispro (HumaLOG;Admelog) (100 un it/mL) subcutaneous injection vial 1-4 Units(Linked Group 1) 1230 (Given - Provider: Renita Pool RN)1600 (Not Given - Provider: Renita Pool RN - Reason: Order parameters not met)2000 (Not Given - Provider: Kale Gongora RN - Reason: Contraindicated) 0000 (Not Given - Provider: Kale Gongora RN - Reason: Contraindicated)0400 (Hold - Provider: Kale Gongora RN - Reason: Contraindicated)0800 (Not Given - Provider: Noris Cason RN - Reason: Order parameters not met) 0000 (Hold - Provider: Kale Gongora RN - Reason: Contraindicated)0400 (Not Given - Provider: Kale Gongora RN - Reason: Contraindicated)0800 (Not Given - Provider: Noris Cason RN - Reason: Order parameters not met) 1-4 Units, Subcutaneous, EVERY 4 HOURS S CHEDULED, First dose on Sat04/09/22 at 1300, Until Discontinued, CORRECTION BOLUS [1-4 Units] Sensitive Sliding Scale (BG in mg/dL): Correction factor 40 (1 u 1200 (N ot Given - Provider: Noris Cason RN - Reason: Order parameters not met)1600 (Not Given - Provider: Noris Cason RN - Reason: Order parameters not met)2014 (Given - Provider: Kale Gongora, LONA) 1135 (Given - Provider: Noris Cason RN)1600 (Due) nit of insulin is expected to drop the g lucose 40 mg/dL) BG 160 - 200 Give 1 unit BG 201 - 240 Give 2 units BG 241 - 280 Give 3 units BG greater than 280, give 4 units and recheck BG in 2 hours. - If re check BG is LESS than 280, give no insul in and resume schedule - If recheck BG is GREATER than 280, give 4 units and repeat BG in 2 hours (no more than 3 times) & call for new insulin orders. DO NOT hold if NPO, unless specifically direct ed to do so by written order. Per Blood Glucose Monitoring Policy, re-check a BG of > 240 mg/dL in 2 hours., Routine lidocaine (Xylocaine) 1% (10 mg/mL) injection 10 mg 1315 (Not Given - Provider: Noris Cason RN - Reason: See comment) 10 mg, Subcutaneous, ONCE, 1 dose, On 04/10/22 at 1315, For use in Interventional Radiology (IR) only for procedure with direct provider supervision and verbal order., Angio/IR (Intra-Procedure), Routine losartan (Cozaar) tablet 50 mg 1130 (Not Given - Provi ralf: Renita Pool RN - Reason: Contraindicated - Comment: pt unable to inform RN which meds he received this am.) 0959 (Given - Provider: Noris Cason RN) 0844 (Giv en - Provider: Noris Cason RN) 50 mg, Oral, DAILY, First dose on Sat at 1130, Until Discontinued, Routine melatonin tablet 3 mg 2012 (Given - Provider: Kale Gongora, LONA) 2012 (Given - Provider: Kale Gongora RN) 3 mg, Oral, NIGHTLY, First dose on Sat at 2100, Until Discontinued, Routine metoprolol succinate XL (Toprol-XL) tablet 50 mg 1130 (Not Given - Provider: Renita Pool RN - Reason: Contraindicated) 0958 (Given - Provider: Noris Cason RN) 0844 (Given - Provider: Noris Cason RN) 50 mg, Oral, DAILY, First dose on Sat at 1130, Until Discontinued, DO NOT CRUSH OR OPEN, Routine pantoprazole EC (Protonix) tablet 20 mg 1130 (Not Give n - Provider: Renita Pool RN - Reason: Contraindicated) 0959 (Given - Provider: Noris Cason RN) 0844 (Given - Provider: Noris Cason RN) 20 mg, Oral, DAILY, First dose on Sat at 1130, Until Discontinued, Do not crush or chew piperacillin-tazobactam (Zosyn) 3.375 g vial attach to sodium chloride 0.9% 50 mL Mini-Bag Plus (CANCELED) 1201 (New Bag - Provider: Renita gonzales RN)1601 (Stopped - Provider: Renita Pool RN)2012 (New Bag - Provider: Kale Gongora RN) 0013 (Stopped - Provider: Kale Gongora RN)0336 (New Bag - Provider: Kale Gongora RN)0736 (Stopped - Provider: Noris Cason RN)1439 (New Bag - Provider: Noris Cason RN)1839 (Stopped - Provider: Noris Cason RN) 0013 (Stopped - Provider: Kale Gongora RN)0416 (New Bag - Provider: Kale Gongora RN)0816 (Stopped - Provider: Noris Cason RN) 3.375 g, Intravenous, EVERY 8 HOURS, Fir st dose on Sat04/09/22 at 1200, Until Discontinued, Administer over 4 Hours, Warning Vesicant/Irritant Medication Do not administer or Y-site with lactated 2012 (New Bag - Provider: Kale Gongora RN) ringers., Indication for (Active or Suspected): GI/Intra-abdomin al rosuvastatin (Crestor) tablet 10 mg 10 mg, Oral, EVERY EVENING, First dose o n Sat04/11/22 at 1700, Until Discontinued, Routine sodium chloride 0.9 % (flush) (BD PosiFlush Normal Jose ine 0.9) flush 5 mL 1208 (Given - Provider: Renita Pool RN)2012 (Given - Provider: Kale Gongora, LONA) 1000 (Given - Provider: Noris Cason RN)2019 (Given - Provider: Kale Gongora RN) 0845 (Given - Provider: Noris Cason RN) 5 mL, Intravenous, 2 TIMES DAILY, First dose on Sat04/09/22 at 1145, Until Discontinued, Routine sodium chloride 0.9 % (flush) (BD PosiFlush Normal Saline 0. 9) flush 5 mL 1315 (Not Given - Provider: Noris Cason RN - Reason: See comment)2019 (Given - Provider: Kale Gongora RN) 0844 (Given - Provider: Noris Cason RN) 5 mL, Intravenous, 2 TIMES DAILY, First dose on Sat04/10/22 at 1315, Until Discontinued, Angio/IR (Day of Procedure), Routine spironolactone (Aldactone) tablet 12.5 mg 1130 (Not Gi michelle - Provider: Renita Pool RN - Reason: Contraindicated - Comment: pt given meds this am but not clear which meds he took.) 1001 (Given - Provider: Noris Cason RN) 0843 (Given - Provider: Noris Cason RN) 12.5 mg, Oral, DAILY, First dose on Sat04/09/22 at 1130, Until Discontinued, DO NOT SPLIT, CRUSH OR OPEN, Routine Continuous Medication Order 04/09/2022 04/10/2022 04/11/2022 lactated ringers infusion (CANCELED) 1147 (New Bag - P rovider: Renita Pool RN) 1002 (New Bag - Provider: Noris Cason RN) 0421 (N ew Bag - Provider: Kale Gongora RN)0535 (Stopped - Provider: Kale Gongora RN) 50 mL/hr, Intravenous, CONTINUOUS, Start ing on Sat04/09/22 at 1145, Until Sat04/11/22 at 0535 PRN Medication Order 04/09/2022 04/10/2022 04/11/2022 acetaminophen (Tylenol) tablet 975 mg 17 04 (Given - Provider: Noris Cason RN) 975 mg, Oral, EVERY 8 HOURS PRN, Startin g on Sat04/09/22 at 1053, Until Sat04/11/22 at 1808, Pain, Maximum dose of acetaminophen is 4000 mg from all sources in 24 hours. When ordered for pain, acetamino phen should be given even when other ord ered pain medications are indicated. , Routine bisacodyl EC (Dulcolax) tablet 10 mg 10 mg, Oral, 2 TIMES DAILY PRN, Starting on Sat04/09/22 at 1052, Until Sat04/11/22 at 1808, Constipation, DO NOT CRUSH OR OPEN Administer if no bowel movement within 48 hours to achieve: (1) One bow el movement at least every 48 hours, AND (2) without straining. If multiple PRN bowel medications ordered, start with polyethylene glycol, then lactulose, then oral bisacodyl, then bisacodyl suppository , then magnesium citrate, then tap water enema. Multiple medications may be given concomitantly for constipation., Routine dextrose 10% infusion(Linked Group 2) 250 mL, at 1,000 mL/hr, Intravenous, GONZALO RY 30 MIN PRN, Starting on Sat04/09/22 at 1212, Until Sat04/11/22 at 1808, For BG 50-70 mg/dL: Oral treatment preferred: [...] for the duration of the active insulin. fentaNYL (pf) (50 mcg/mL) multi-dose injection 25-50 mcg 1310 (Given - Provider: Bj Vitale RN)1315 (Given - Provider: Bj Vitale RN) 25-50 mcg, Intravenous, EVERY 3 MIN PRN, Starting on Sat04/10/22 at 1221, Until Sat04/11/22 at 1808, Pain, per unit protocol, - Start dose 50 mcg (reduce dose to 25 mcg if history of sedation sensitivit y). - Titration dose 25-50 mcg IV, (base d on patient response) every 3 minutes PRN, to maintain procedural pain less than 2 per pain Scale. Maximum dose: 50 mcg/dose, 250 mcg/hour For use in Interventio nal Radiology (IR) only for procedural s edation with direct provider supervision and verbal order., Angio/IR (Intra-Procedure), Routine flumazeniL (Romazicon) (0.1 mg/mL) injection 0.2 mg 0.2 mg, Intravenous, EVERY 2 MIN PRN, 5 doses, Starting on Sat04/10/22 at 1221, Until Sat04/11/22 at 1808, for respiratory rate less than 8, SpO2 less than 90% despite supplement O2, or patient unable t o arouse., Give every 2 minutes IV PRN f or total of 5 doses for respiratory rate less than 8, SpO2 less than 90% despite supplement O2, or patient unable to arouse. , Angio/IR (Intra-Procedure), Routine flumazeniL (Romazicon) (0.1 mg/mL) injection 0.2 mg 0.2 mg, Intravenous, EVERY 2 MIN PRN, 5 doses, Starting on Sat04/10/22 at 1227, Until Sat04/11/22 at 1808, for respiratory rate less than 8, SpO2 less than 90% despite supplement O2, or patient unable t o arouse., Give every 2 minutes IV PRN f or total of 5 doses for respiratory rate less than 8, SpO2 less than 90% despite supplement O2, or patient unable to arouse. , Angio/IR (Intra-Procedure), Routine glucagon (Glucagen) (1 mg/mL) injection solution 1 mg(Linked Marnie up 2) 1 mg, Intramuscular, EVERY 30 MIN PRN, S tarting on Sat04/09/22 at 1212, Until Sat04/11/22 at 1808, Low blood sugar, For BG 50-70 mg/dL: Oral treatment preferred: If able to drink, give 120 mL Juice o r Regular (not diet) soda OR If NPO, giv e 15 gram glucose 40% oral gel massaged [...] gel massaged in buccal mucosa OR if unconsc ious or uncooperative, give 25 gram (250 mL) Dextrose 10% IV over 15 minutes per protocol OR, if no IV access, 1 mg Glucagon IM. Recheck BG in 30 minutes. May r epeat juice/soda, gel, dextrose or gluca verona once per episode. For persistent hypoglycemia, consider longer-acting treatment for the duration of the active insulin., Routine glucose (Glutose) 40% oral geL(Linked Group 2) 15-30 g of glucose, Buccal, EVERY 30 MIN PRN, Starting on Sat04/09/22 at 1212, Until Sat04/11/22 at 1808, Low blood sugar, For BG 50-70 mg/dL: Oral treatment preferred: If able to drink, give 120 mL Juice or Regular (not diet) soda OR If N PO, give 15 gram glucose 40% oral gel massaged into buccal mucosa OR if unconscious or uncooperative, give 25 gram (250 mL) Dextrose 10% IV over 15 minutes per pr otocol OR, if no IV access, 1 mg Glucago n IM. For BG less than 50 mg/dL: Oral treatment preferred: If able to drink, give 240 mL Juice or Regular (not diet) soda OR If NPO, give 30 gram glucose 40% o ral gel massaged in buccal mucosa OR if unconscious or uncooperative, give 25 gram (250 mL) Dextrose 10% IV over 15 minutes per protocol OR, if no IV access, 1 mg Glucagon IM. Recheck BG in 30 minutes . May repeat juice/soda, gel, dextrose o r glucagon once per episode. For persistent hypoglycemia, consider longer-acting treatment for the duration of the active insulin. 1 tube of Glutose-15 contain s 15 grams of glucose (net weight of tube = 37.5 grams.), Routin e lidocaine (Xylocaine) 1% (10 mg/mL) injection 3 mg 3 mg (0.3 mL), Subcutaneous, ONCE PRN, 1 dose, Starting on Sat04/09/22 at 1050, Until Sat04/11/22 at 1808, for discomfort with PIV insertion, Routine lidocaine (Xylocaine) 1% (10 mg/mL) injection 3 mg 3 mg (0.3 mL), Subcutaneous, ONCE PRN, 1 dose, Starting on Sat04/10/22 at 1221, Until Sat04/11/22 at 1808, for discomfort with PIV insertion, Angio/IR (Day of Procedure), Routine midazolam (pf) (Versed) (1 mg/mL) multi-dose injection 0.5-1 mg 1310 (Given - Provider: Bj Vitale RN)1315 (Given - Provider: Bj Vitale RN) 0.5-1 mg, Intravenous, EVERY 3 MIN PRN, Starting on Sat04/10/22 at 1227, Until Sat04/11/22 at 1808, Sleep, - Start dose; 1 mg (Reduce dose to 0.5 mg if history of sedation sensitivity). - Titration dose : 0.5 mg - 1 mg (based on patient respon se) every 3 minutes PRN to obtain RASS score of -3. Maximum dose: 1 mg per dose, 5 mg/hour. For use in Interventional Radiology (IR) only for procedural sedation with direct provider supervision and loreto bal order., Angio/IR (Intra-Procedure), Routine naloxone (NARCAN) injection 1 mg/mL 0.1 mg 0.1 mg, Intravenous, EVERY 2 MIN PRN, St arting on Sat04/10/22 at 1221, Until Sat04/11/22 at 1808, Opioid Reversal, Give every 2 minutes PRN for opioid reversal, for respiratory rate less than 8 per uzma te, SpO2 less than 90% despite supplemen t O2, or patient unable to arouse. Maximum dose of 0.8 mg intra-procedure., Angio/IR (Intra-Procedure), Routine ondansetron (pf) (Zofran) (2 mg/mL) injection 4 mg 4 mg, Intravenous, EVERY 8 [address] PRN, St arting on Sat04/09/22 at 1053, Until Sat04/11/22 at 1808, Nausea polyethylene glycoL (Miralax) packet 17 g 17 g, Oral, DAILY PRN, Starting on Sat at 1052, Until Sat04/11/22 at 180, Constipation, Administer if no bowel movement within 48 hours to achieve: (1) One bowel movement at least every 48 hour s, AND (2) without straining. If multipl e PRN bowel medications ordered, start with polyethylene glycol, then lactulose, then oral bisacodyl, then bisacodyl suppository, then magnesium citrate, then tap water enema. Multiple medications may b e given concomitantly for constipation., Routine sodium chloride 0.9 % (flush) (BD PosiFlush Normal Saline 0.9) f lush 10 mL 10 mL, Intravenous, DAILY PRN, Starting on Sat04/10/22 at 1221, Until Sat04/11/22 at 1808, For use when accessing Implantable Port, Angio/IR (Day of Procedure), Routine sodium chloride 0.9 % (flush) (BD PosiFlush Normal Saline 0.9) f lush 5-20 mL 5-20 mL, Intravenous, EVERY 1 MIN PRN, S tarting on Sat04/09/22 at 1050, Until Sat04/11/22 at 1808, flush, Flush pertains to all indwelling lines. Flush per protocol found in the job aid using the link provided on this medication record., Routine sodium chloride 0.9 % (flush) (BD PosiFlush Normal Saline 0.9) f lush 5-20 mL 5-20 mL, Intravenous, EVERY 1 MIN PRN, S tarting on Sat04/10/22 at 1221, Until Sat04/11/22 at 1808, flush, Flush pertains to all indwelling lines. Flush per protocol found in the job aid using the link p rovided on this medication record., Angio/IR (Day of Procedure), Routine Linked Groups Order Group 1: POCT Fingerstick Glucose (CANCELED) Routine, EVERY 4 HOURS, First occurrence on Sat04/09/22 at 1215, Until Specified
Consider choosing EVERY 4 HOURS as frequency for: - Type 1 Diabetes - At least 24 hours after coming off an insu tete drip - At least 24 hours after admis silvino for DKA - Hypoglycemia unawareness - Patients who are otherwise unstable Select the same frequency for the correction bolus insulin order And insulin lispro (HumaLOG;Admelog) (100 unit/mL) subcutaneous injection vial 1-4 UnitsJump to med 1-4 Units, Subcutaneous, EVERY 4 HOURS S CHEDULED, First dose on Sat04/09/22 at 1300, Until Discontinued
CORRECTION BOLUS [1-4 Units] Sensitive Sliding Scale (BG in mg/dL): Correcti on factor 40 (1 unit of insulin is expec mick to drop the glucose 40 mg/dL) BG 160 - 200 Give 1 unit BG 201 - 240 Give 2 units BG 241 - 280 Give 3 units BG greater than 280, give 4 units and re check BG in 2 hours. - If recheck BG is LESS than 280, give no insulin and resume schedule - If recheck BG is GREATER than 280, give 4 units an d repeat BG in 2 hours (no more than 3 t imes) & call for new insulin orders. DO NOT hold if NPO, unless specifically directed to do so by written order.&am p;nbsp; Per Blood Gluco se Monitoring Policy, re-check a BG of > 240 mg/dL in 2 hours.
Routine Group 2: glucose (Glutose) 40% oral geLJump to med 15-30 g of glucose, Buccal, EVERY 30 MIN PRN, Starting on Sat04/09/22 at 1212, Until Sat04/11/22 at 1808, Low blood sugar
For BG 50-70 mg/dL: &nbs p;Oral treatment preferred: If able to d rink, give 120 mL Juice or Regular (not diet) soda OR If NPO, give 15 gram glucose 40% oral gel massaged into buccal mucosa OR if unconscious or uncooperative, gi ve 25 gram (250 mL) Dextrose 10% IV over 15 minutes per protocol OR, if no IV access, 1 mg Glucagon IM. For BG less than 50 mg/dL: Oral treatment pre ferred: If able to drink, give 240 mL Ju ice or Regular (not diet) soda OR If NPO, give 30 gram glucose 40% oral gel massaged in buccal mucosa OR if unconscious or uncooperative, give 25 gram (250 mL) De xtrose 10% IV over 15 minutes per protoc ol OR, if no IV access, 1 mg Glucagon IM. Recheck BG in 30 minutes. May repeat juice/soda, gel, dextrose or glucagon once per episode.&nb sp; For persistent hypoglycemia, consider longer-acting treatment for the duration of the active insulin. 1 tube of Glutose-15 contains 15 grams of glucose (net weight of tube = 37.5 grams.)
Routine Or dextrose 10% infusionJump to med 250 mL, at 1,000 mL/hr, Intravenous, GONZALO RY 30 MIN PRN, Starting on Sat04/09/22 at 1212, Until Sat04/11/22 at 1808
For BG 50-70 mg/dL: Oral t reatment [...] episode. & nbsp; For persistent hypoglycemia, con control systems drafting officer longer-acting treatment for the duration of the active insulin.
Or glucagon (Glucagen) (1 mg/mL) injection solution 1 mgJump to med 1 mg, Intramuscular, EVERY 30 MIN PRN, S tarting on Sat04/09/22 at 1212, Until Sat04/11/22 at 1808, Low blood sugar
For BG 50-70 mg/dL: Oral treatment preferred: If able to drink, g ashley 120 mL Juice or Regular (not diet) soda OR If NPO, give 15 gram glucose 40% oral gel massaged into buccal mucosa OR if unconscious or uncooperative, give 25 g nika (250 mL) Dextrose 10% IV over 15 min utes per protocol OR, if no IV access, [...] gel, dextrose or glucagon once per episode. &amp ;nbsp; For persistent hypoglycemia, co nsider longer-acting treatment for the duration of the active insulin.
Routine documented in this encounter Care Teams Shoe Ironer Relationship Specialty Start Date End Date Navin Souza MD PCP - General Family Medicine 02/19/22 [address] [place] [address] documented as of this encounter
--- OUTSIDE RECORDS SUMMARY | 2022-08-22 10:01 | XMS_ITS | Encounter Summary ---
:1950 [place] [address] Care Team Providers Name Role Phone Navin Souza MD Primary Care Provider Reason for Visit Auth/Cert Specialty Diagnoses / Procedures Referred By Contact Refer red To Contact Diagnoses NSTEMI (non-ST elevated myocardial infarction) nstemi Elmer Fiore MD [facility] [place] [address] Referral ID Status Reason Start Date Expiration Date Visits Requ ested Visits Authorized [id number] 1 1 Encounter Details Date Type Department Care Team Description 02/27/2022 Surgery Building Drafter Jose Luis Santiago , CARDIAC CATHETERIZATION [facility] [place] [address] CARDIOLOGY [phone] [place] [id number] (Wo rk) Social History Tobacco Use Types Packs/Day Years Used Date Smoking Tobacco: Former Cigarettes Quit : 03/17/1986 Smokeless Tobacco: Never Alcohol Use Standard Drinks/Week Comments Yes 0 (1 standard drink = 0.6 oz pure alcoho l) Sex Assigned at Date Recorded Not on file documented as of this encounter Last Filed Vital Signs Vital Sign Reading Time Taken Comments Blood Pressure 105/70 02/27/2022 9:42 AM EDT Pulse 71 02/27/2022 9:42 AM EDT Temperature 36.8 ??C (98.2 ??F) 02/27/2022 7:52 AM EDT Respiratory Rate 16 02/27/2022 9:42 AM EDT Oxygen Saturation 98% 02/27/2022 9:37 AM EDT Inhaled Oxygen Concentration - - [...] Gillian Branch Patient Age: 71 y.o. Language: Ukrainian Race: White Ethnicity: Not nor Admit date: [...] and apical WMA's ?? S/p LHC with RECORD RETRIEVAL SPECIALIST of the proximal LAD found ?? Viability study was positive except for the apex; LAD RECORD RETRIEVAL SPECIALIST intervention was done on 02/27/2022 ?? Continue [...] Mills MD Zerina Dulas, PA-C Janette Stender, TEST CAR DRIVER Cardiovascular Medicine [phone] Discharge Diagnoses (Hospital Problems) and Secondary Diagnoses [...] 8 Fr EBU 3.5 guide utilizing an [place] [employer]. The final outcome was defined as [...] may require modification of this regimen. Consult [facility] Interventional Cardiology for questions. This patient has [...] against any medical treatment. Consult http://tools.acc.org/DAPTriskapp/#!/content/calculator/ or [facility] Interventional Cardiology for questions Conclusions: * Significant [...] Dual Antiplatelet (DAPT) Recommendations above * Successful RECORD RETRIEVAL SPECIALIST PCI of the LAD with preservation of all side branches. Cardiac catheterization 02/21/2022 Conclusions: ?* Two vessel coronary artery disease (LAD and LCX) ?* Consider viability testing and cardiac surgery consult. Anatomy is ?favorable for RECORD RETRIEVAL SPECIALIST PCI. TTE 02/21/22 Interpretation Summary 1. The [...] DM, HTN, GERD, anxiety who presented to [facility] with symptomshe thought was a panic [...] DM, HTN, GERD and anxiety?who presented to [facility] with symptoms he thought was an anxiety attack. He woke up around 3 AM on 02/19/22 with chest tightness and SOB. Ruled in for NSTEMI. Bedside echo at the OSH showed EF of ~35% with apical WMA's. EKG showed sinus rhythm with poor R wave progression and intraventricular conduction delay. [facility] further evaluation and management. Formal TTE at [facility] showed EF of 17% and apical WMA's. Troponin at [facility] <0.01 -> 0.02. Decision was made to pursue ischemic evaluation via [facility] on02/21/2022 which showed RECORD RETRIEVAL SPECIALIST of his proximal LAD. Access was via right radial artery. A cardiac MRI was done to assess for viability, based on these results the plan will be to proceed with planned PCI ofthe RECORD RETRIEVAL SPECIALIST of the LAD. The patient returned to the skilled labor on 02/27/22 at which time the RECORD RETRIEVAL SPECIALIST of the LADwas stented successfully with preservation [...] attack. A heart attack (myocardial infarction, or OK) occurs when one or more of the [...] of one year. After this time, your soap press feeder will determine if you need to continue [...] away. Stay on the phone. The emergency rope twisting machine operator will tell you what to do. [...] of 8A-5PM please call the Cardiology Clinic [phone] to speak with a nurse. All other hours please call the Hospital [facility] Mechan[facility] [phone] and ask to speak to the industrial retrofit designer on-call. Return to work: One week Driving: No driving for 48 hours after cath Follow up Appointments: Doctor Where Phone # Date Time PCP Navin Souza MD [address] [place] [phone] 03/05/2022 11:[address] Schaeffer and fellow Dr. Lou [facility] Cardiology [facility] [phone] 04/10/2022 Echo at 8:00 AM Appointment at 10:00 AM Home oxygen therapy: N/A Arrangements for VNA/home care: N/A General Instructions Future Appointments and Orders Future Appointments and Orders Future Appointments Provider Department Dept Phone 04/10/2022 8:00 AM ECHO REGULAR Non-Invasive Cardiology Lab [facility] Arrive at: Base Cloth Inspector Area [phone] 04/10/2022 10:00 AM Mike Lou MD; Ben Schaeffer MD Cardiology at [facility] Arrive at: Base Cloth Inspector Area [phone] Future Orders Complete By Expires Echocardiogram Transthoracic [98465 CPT(R)] 02/28/2022 08/30/2022 Process Instructions: Scheduling Instructions: Comments: Questions: Where will study be performed?: [facility] Is a Bubble Study requested?: Does the patient have Congenital Heart Disease?: Does patient require sedation?: GA rationale: Referral to Cardiac Rehab [GFK707 Custom] As directed Process Instructions: If no progress note charted, please enter Clinical details in comments. Scheduling Instructions: Questions: My question or request is: NSTEMI. Cardiac rehab at [facility]. Discharge References/Attachments None Ramirez Najera PA-C 02/28/2022 documented in this encounter Discharge Instructions Discharge InstructionsRamirez Najera PA - 02/22/2022 2:21 PM EDT Patient InstructionsRamirez Najera PA - 02/27/2022 3:26 PM EDT Heart attack You were hospitalized for treatment of your heart attack. A heart attack (myocardial infarction, or OK) occurs when one or more of the [...] of one year. After this time, your soap press feeder will determine if you need to continue [...] away. Stay on the phone. The emergency rope twisting machine operator will tell you what to do. [...] of 8A-5PM please call the Cardiology Clinic [phone] to speak with a nurse. All other hours please call the Hospital [facility] [phone] and ask to speak to the industrial retrofit designer on-call. Return to work: One week Driving: No driving for 48 hours after cath Follow up Appointments: Doctor Where Phone # Date Time PCP Navin Souza MD [address] [place] [address] [phone] 03/05/2022 11:[address] Schaeffer and fellow Dr. Lou [facility] Cardiology 4A Clinic [phone] 04/10/2022 Echo at 8:00 AM Appointment at [...] (Jardiance) Take 1 tablet by 30 tablet 02/1403/02/2022 10 mg Tablet mouth daily. exenatide [...] Progress Note Patient Name: Gillian Branch Service: MOLD ENGRAVER / PA Responsible Attending: Ben Schaeffer MD Reason for continued hospitalization: NSTEMI New HFrEF - LVEF ~17 % S/p repeat LHC with PCI of RECORD RETRIEVAL SPECIALIST of LAD 02/27 Active Problems: Active Hospital Problems Diagnosis ??? NSTEMI (non-ST elevated myocardial infarction) ??? Acute systolic congestive heart failure Resolved Hospital Problems No resolved problems to display. Interval History: Patient did well overnight with no chest pain or shortness of breath. Underwent repeat LHC yestrerday w/ PCI of RECORD RETRIEVAL SPECIALIST. Discharge today. Review of Systems: Review of [...] last 168 hours. Recent Labs 02/28/2233402/27/2233602/26/22 0355 NA 135 135 137 K 4.3 4.0 4.0 CL 102 100 104 CO2 24 23 22 BUN 15 17 14 CREATININE 0.89 0.72* 0.75* No results for input(s): AST, ALT, ALKPHOS, BILITOT, BILIDIR in the last 168 hours. Recent Labs 02/28/2233402/27/227 02/26/22 0355 CALCIUM 9.0 9.2 9.4 MAGNESIUM [...] Dual Antiplatelet (DAPT) Recommendations above * Successful RECORD RETRIEVAL SPECIALIST PCI of the LAD with preservation of [...] cardiac surgery consult. Anatomy is favorable for RECORD RETRIEVAL SPECIALIST PCI. Cardiac MRI: 02/22/22 IMPRESSION Severe dilatation [...] HTN, GERD and anxiety [facility] [...] concerning for ischemic cardiomyopathy. Cardiac catheterization shows RECORD RETRIEVAL SPECIALIST of proximal LAD with collaterals from the [...] repeat catheterization on02/27 at which time successful RECORD RETRIEVAL SPECIALIST PCI of LAD was performed, along with angioplasty of oD1, oD2, and o Ramus lesions. Thrombectomy was also performed on the LCx and Integrilin was utilized. Patient is doing well and is medically ready for discharge. . Plan: # NSTEMI # ASCVD TTE w/ LVEF 17% S/p ASA 325 mg and Plavix 300 mg loads S/p C with successful PCI RECORD RETRIEVAL SPECIALIST of LAD and thrombectomy Continue daily aspirin [...] MD Ramirez Mistry PA-C 02/28/2022 Pager #: [phone] Cardiovascular Attending Note I shared this visit [...] Progress Note Patient Name: Gillian Branch Service: MOLD ENGRAVER / PA Responsible Attending: Ben Schaeffer MD Reason for continued hospitalization: NSTEMI New HFrEF - LVEF ~17 % S/p repeat LHC with PCI of RECORD RETRIEVAL SPECIALIST of LAD 02/27 Active Problems: Active Hospital Problems Diagnosis ??? NSTEMI (non-ST elevated myocardial infarction) ??? Acute systolic congestive heart failure Resolved Hospital Problems No resolved problems to display. Interval History: Patient did well overnight with no chest pain or shortness of breath. Underwent repeat LHC today for PCI of his RECORD RETRIEVAL SPECIALIST. On bed rest until 5:30 PM. Review of Systems: Review of Systems Respiratory: Negative for shortness of breath. Cardiovascular: Negative for chest pain. All other systems reviewed and are negative. Telemetry: HR: 50-70s sinus bradycardia, sinus rhythm with rare PVC Meds: Scheduled Meds: ??? [NOV Hold] senna-docusate 2 tablet Oral Daily ??? [NOV Hold] lidocaine 1 patch Transdermal Q24H And ??? [NOV Hold] lidocaine 1 patch Transdermal Q24H ??? [NOV Hold] heparin (porcine) 5,000 Units Subcutaneous 2 times per day ??? [NOV Hold] insulin glargine (Lantus;Semglee) (100 unit/mL) subcutaneous injection 10 Units Subcutaneous Nightly ??? [NOV Hold] insulin lispro 0-8 Units Subcutaneous TID WC ? ? [NOV Hold] insulin lispro 1-4 Units Subcutaneous 4 Times Daily AC & HS ??? [NOV Hold] clopidogreL 75 mg Oral Daily ??? [NOV Hold] metoprolol tartrate 25 mg Oral Q6H [...] cardiac surgery consult. Anatomy is favorable for RECORD RETRIEVAL SPECIALIST PCI. Cardiac MRI: 02/22/22 IMPRESSION Severe dilatation [...] HTN, GERD and anxiety [facility] [...] concerning for ischemic cardiomyopathy. Cardiac catheterization shows RECORD RETRIEVAL SPECIALIST of proximal LAD with collaterals from the RCA. Cardiac MRI shows some viability in the basilar to mid anterior, anterolateral and anteroseptal bowers. Unlikely to be viable distal anterior wall and anterior aspect of the apex. After discussion, plan for PCI of the RECORD RETRIEVAL SPECIALIST of the LADplus or minus IABP support on Tuesday 02/27. . After further review of the cardiac MRI, the LV thrombus appears pinpoint and IV heparin was stopped. Plan: # NSTEMI # ASCVD TTE w/ LVEF 17% S/p ASA 325 mg and Plavix 300 mg loads Continue daily aspirin, restarted plavix dosing Continue metoprolol 25 mg q6 hrs Continue atorvastatin 40 mg nighty RECORD RETRIEVAL SPECIALIST of LAD found; PCI to RECORD RETRIEVAL SPECIALIST done 02/27 # New HFrEF # Ischemic [...] MD Ramirez Mistry PA-C 02/27/2022 Pager #: [phone] Cardiovascular Attending Note I shared this visit with Zerina Dulas, PA-C. I performed and supplemented the history, [...] Progress Note Patient Name: Gillian Branch Service: MOLD ENGRAVER / PA Responsible Attending: Ben Schaeffer MD Reason for continued hospitalization: NSTEMI New HFrEF - LVEF ~17 % RECORD RETRIEVAL SPECIALIST of LAD seen on cardiac cath, planned PCI for Monday 02/26 Active Problems: Active Hospital Problems Diagnosis ??? NSTEMI (non-ST elevated myocardial infarction) ??? Acute systolic congestive heart failure Resolved Hospital Problems No resolved problems to display. Interval History: Patient did well overnight with no chest pain or shortness of breath. Aware of theplan for PCI of his RECORD RETRIEVAL SPECIALIST today. Review of Systems: Review of Systems [...] Comments: Recent Labs 02/26/22 0355 02/24/225 02/23/22 035 WBC 4.8 6.4 4.9 HGB 16.5 16.0 16.5 HCT 48.1 47.2 48.2 PLATELET 173 167 156 No results for input(s): INR in the last 168 hours. Recent Labs 02/26/22 0355 02/24/225 02/23/22 035 NA 137 136 136 K 4.0 3.8 3.9 CL 104 101 102 CO2 22 24 23 BUN 14 14 11 CREATININE 0.75* 0.79* 0.72* No results for input(s): AST, ALT, ALKPHOS, BILITOT, BILIDIR in the last 168 hours. Recent Labs 02/26/22 0355 02/24/225 02/23/22 035 CALCIUM 9.4 9.2 9.4 MAGNESIUM 0.79 -- -- Recent Labs 02/21/22 0904 02/21/22 0254 02/20/222 TROPONINT 0.01* 0.02* <0.01 Pertinent Radiographic/Diagnostic Results: [...] cardiac surgery consult. Anatomy is favorable for RECORD RETRIEVAL SPECIALIST PCI. Cardiac MRI: 02/22/22 IMPRESSION Severe dilatation [...] HTN, GERD and anxiety [facility] [...] concerning for ischemic cardiomyopathy. Cardiac catheterization shows RECORD RETRIEVAL SPECIALIST of proximal LAD with collaterals from the RCA. Cardiac MRI shows some viability in the basilar to mid anterior, anterolateral and anteroseptal bowers. Unlikely to be viable distal anterior wall and anterior aspect of the apex. An unexpected finding on cMR of a 14 mm laminar thrombus in the anterior distal aspect of the left ventricle. After discussion, plan for PCI of the RECORD RETRIEVAL SPECIALIST of the LAD plus or minus IABP [...] q6 hrs Continue atorvastatin 40 mg nighty RECORD RETRIEVAL SPECIALIST of LAD found; NPO for staged PCI [...] MD Ramirez Mistry PA-C 02/26/2022 Pager #: [phone] Cardiovascular Attending Note I shared this visit [...] the patient's questions. Ben Schaeffer M.D. Oliver Barroso APRN - 02/25/2022 8:45 AM EDT Images from the original note were not included. Inpatient Cardiology Progress Note Patient Name: Gillian Branch Service: MOLD ENGRAVER / PA Responsible Attending: Ben Schaeffer MD Reason for continued hospitalization: NSTEMI New HFrEF - LVEF ~17 % RECORD RETRIEVAL SPECIALIST of LAD seen on cardiac cath, planned PCI for Saturday after review of the cardiac MRI Active Problems: Active Hospital Problems Diagnosis ??? NSTEMI (non-ST elevated myocardial infarction) ??? Acute systolic congestive heart failure Resolved Hospital Problems No resolved problems to display. Interval History: Patient did well overnight with no chest pain or shortness of breath. Aware of theplan for PCI of his RECORD RETRIEVAL SPECIALIST LAD on Saturday. Dr. Schaeffer's examination of [...] 0409 106.1 kg (233 lb 14.5 oz) 02/20/221957 106.9 kg (235 lb 10.8 oz) Intake/Output [...] Behavior normal. Lab Comments: Recent Labs 02/24/2231402/23/222 02/22/2233 WBC 6.4 4.9 5.8 HGB 16.0 16.5 [...] in the last 168 hours. Recent Labs 02/24/22 0315 02/23/22 0352 02/22/22 0633 CALCIUM 9.2 9.4 9.2 [...] cardiac surgery consult. Anatomy is favorable for RECORD RETRIEVAL SPECIALIST PCI. Cardiac MRI: 02/22/22 IMPRESSION Severe dilatation [...] HTN, GERD and anxiety [facility] [...] concerning for ischemic cardiomyopathy. Cardiac catheterization shows RECORD RETRIEVAL SPECIALIST of proximal LAD with collaterals from the RCA. Cardiac MRI shows some viability in the basilar to mid anterior, anterolateral and anteroseptal bowers. Unlikely to be viable distal anterior wall and anterior aspect of the apex. After discussion, plan for PCI of the RECORD RETRIEVAL SPECIALIST of the LADplus or minus IABP support on Saturday. After further review of the cardiac MRI we will plan to stop IV heparin. Plan: # NSTEMI TTE w/ LVEF 17% S/p ASA 325 mg and Plavix 300 mg loads Continue daily aspirin, restarted plavix dosing Continue metoprolol 25 mg q6 hrs Continue atorvastatin 40 mg nighty RECORD RETRIEVAL SPECIALIST of LAD found, planned PCI on Saturday [...] Discussed with MD Oliver Mistry APRN Pager [phone] 02/25/2022 Ben Schaeffer MD - 02/24/2022 11:02 AM EDT Images from the original note were not included. Inpatient Cardiology Progress Note Patient Name: Gillian Branch Service: MOLD ENGRAVER / PA Responsible Attending: Ben Schaeffer MD Reason for continued hospitalization: NSTEMI New HFrEF - LVEF ~17 % RECORD RETRIEVAL SPECIALIST of LAD seen on cardiac cath, planned PCI for Saturday after review of the cardiac MRI Active Problems: Active Hospital Problems Diagnosis ??? NSTEMI (non-ST elevated myocardial infarction) ??? Acute systolic congestive heart failure Resolved Hospital Problems No resolved problems to display. Interval History: Patient did well overnight with no chest pain or shortness of breath. Aware of theplan for PCI of his RECORD RETRIEVAL SPECIALIST LAD on Saturday. Dr. Schaeffer's examination of [...] Behavior: Behavior normal. Lab Comments: Recent Labs 02/24/2231402/23/22 0352 02/22/22 0633 WBC 6.4 4.9 5.8 HGB [...] cardiac surgery consult. Anatomy is favorable for RECORD RETRIEVAL SPECIALIST PCI. Cardiac MRI: 02/22/22 IMPRESSION Severe dilatation [...] HTN, GERD and anxiety [facility] [...] concerning for ischemic cardiomyopathy. Cardiac catheterization shows RECORD RETRIEVAL SPECIALIST of proximal LAD with collaterals from the RCA. Cardiac MRI shows some viability in the basilar to mid anterior, anterolateral and anteroseptal bowers. Unlikely to be viable distal anterior wall and anterior aspect of the apex. After discussion, plan for PCI of the RECORD RETRIEVAL SPECIALIST of the LADplus or minus IABP support on Saturday. After further review of the cardiac MRI we will plan to stop IV heparin. Plan: # NSTEMI TTE w/ LVEF 17% S/p ASA 325 mg and Plavix 300 mg loads Continue daily aspirin, restarted plavix dosing Continue metoprolol 25 mg q6 hrs Continue atorvastatin 40 mg nighty RECORD RETRIEVAL SPECIALIST of LAD found, planned PCI on Saturday [...] Discussed with MD Oliver Mistry APRN Pager [phone] 02/24/2022 Cardiovascular Attending Note I shared this visit with Oliver Barroso APRN. I performed and supplemented the history, [...] Progress Note Patient Name: Gillian Branch Service: MOLD ENGRAVER / PA Responsible Attending: Ben Schaeffer MD Reason for continued hospitalization: NSTEMI New HFrEF - LVEF ~17 % RECORD RETRIEVAL SPECIALIST of LAD seen on cardiac cath, planned [...] cardiac surgery consult. Anatomy is favorable for RECORD RETRIEVAL SPECIALIST PCI. Cardiac MRI: 02/22/22 IMPRESSION Severe dilatation [...] HTN, GERD and anxiety [facility] [...] concerning for ischemic cardiomyopathy. Cardiac catheterization shows RECORD RETRIEVAL SPECIALIST of proximal LAD with collaterals from the RCA. Cardiac MRI shows some viability in the basilar to mid anterior, anterolateral and anteroseptal bowers. Unlikely to be viable distal anterior wall and anterior aspect of the apex. After discussion, plan for PCI of the RECORD RETRIEVAL SPECIALIST of the LADplus or minus IABP support on Saturday. Will continue IV heparin. Restart Plavix dosing. Plan: # NSTEMI TTE w/ LVEF 17% S/p ASA 325 mg and Plavix 300 mg loads Continue daily aspirin, restarted plavix dosing Continue IV heparin Continue metoprolol 25 mg q6 hrs Continue atorvastatin 40 mg nighty RECORD RETRIEVAL SPECIALIST of LAD found, planned PCI on Saturday [...] Discussed with MD Oliver Mistry APRN Pager [phone] 02/23/2022 Cardiovascular Attending Note I shared this visit with Oliver Barroso APRN. I performed and supplemented the history, [...] Progress Note Patient Name: Gillian Branch Service: MOLD ENGRAVER / PA Responsible Attending: Elmer Fiore MD Reason for continued hospitalization: NSTEMI New HFrEF - LVEF ~17 % RECORD RETRIEVAL SPECIALIST of LAD seen on cardiac cath Active Problems: Active Hospital Problems Diagnosis ??? NSTEMI (non-ST elevated myocardial infarction) ??? Acute systolic congestive heart failure Resolved Hospital Problems No resolved problems to display. Interval History: Patient with cardiac cath yesterday that found RECORD RETRIEVAL SPECIALIST of the LAD. Options for revascularization reviewed. [...] Behavior: Behavior normal. Lab Comments: Recent Labs 02/22/2263202/21/22 0254 02/20/222031 WBC 5.8 6.4 6.0 HGB 16.1 16.1 16.4 HCT 47.2 47.3 47.6 PLATELET 169 173 157 No results for input(s): INR in the last 168 hours. Recent Labs 02/22/2233 02/21/22 0254 02/20/222031 NA 136 137 137 K 4.4 4.0 4.0 CL 102 102 101 CO2 23 24 24 BUN 13 20 20 CREATININE 0.74* 0.80 0.85 No results for input(s): AST, ALT, ALKPHOS, BILITOT, BILIDIR in the last 168 hours. Recent Labs 02/22/22 0633 02/21/22 0254 02/20/222031 CALCIUM 9.2 9.1 9.3 Recent Labs 02/21/22 [...] cardiac surgery consult. Anatomy is favorable for RECORD RETRIEVAL SPECIALIST PCI. Assessment: Gillian Branch is a 71 y.o. male with PMH of DM, HTN, GERD and anxiety [facility] [...] concerning for ischemic cardiomyopathy. Cardiac catheterization shows RECORD RETRIEVAL SPECIALIST of proximal LAD with collaterals from the [...] q6 hrs Continue atorvastatin 40 mg nighty RECORD RETRIEVAL SPECIALIST of LAD found, will get cardiac MRI [...] Heparin gtt Discussed with Elmer Fiore MD Oliver Jeanmarie, TEST CAR DRIVER Pager [phone] 02/22/2022 Cardiology Staff I shared this visit with Ms. Barroso. My role was to review the history, exam, laboratory, and imaging and to formulate the assessment and plan. I performed the medical decision making. In brief, patient with advanced cardiomyopathy and stable ischemic heart disease, now status post adequate diruesis for HF. Cath with LAD RECORD RETRIEVAL SPECIALIST. TTE with LVEF 20%, dense apical akinesis. Would be challenging PCI and CABG also an option. Should get viability assessment prior. For cardiac MR tomorrow. Advance GDMT HFrEF theapies and transition to PO diuretic. Elmer Fiore MD, MARLENY, FACC, FACP, FASE Cardiovascular Medicine Noel Lerner - 02/21/2022 10:07 AM EDT Inpatient Cardiology Progress Note Patient Name: Gillian Branch Service: MOLD ENGRAVER / PA Responsible Attending: Elmer Fiore MD [...] Thought content normal. Lab Comments: Recent Labs 02/21/2225302/20/222031 WBC [...] DM, HTN, GERD, anxiety who presented to [facility] with symptoms he thought was a [...] Progress Note Patient Name: Gillian Branch Service: MOLD ENGRAVER / PA Responsible Attending: Elmer Fiore MD [...] Behavior: Behavior normal. Lab Comments: Recent Labs 02/21/22 02502/20/222031 WBC 6.4 6.0 HGB 16.1 16.4 HCT 47.3 47.6 PLATELET 173 157 No results for input(s): INR in the last 168 hours. Recent Labs 02/21/22 02502/20/222031 NA 137 137 K 4.0 4.0 CL 102 101 CO2 24 24 BUN 20 20 CREATININE 0.80 0.85 No results for input(s): AST, ALT, ALKPHOS, BILITOT, BILIDIR in the last 168 hours. Recent Labs 02/21/22 0254 02/20/222031 CALCIUM 9.1 9.3 Recent Labs 02/21/2225302/20/222031 TROPONINT [...] HTN, GERD and anxiety [facility] [...] MD Ramirez Siddiqi PA-C 02/21/2022 Pager #: [phone] Cardiology Staff I shared this visit with [...] Souza MD Presenting Diagnosis/Chief Complaint: NSTEMI/Transferred from [facility] hospital for further management History of Present Illness: Gillian Branch is a 71 y.o. male with PMH of DM, HTN, GERD, anxiety who presented to [facility] with symptoms he thought was a [...] B/L, no calf tenderness, swelling, or erythema. Neuro/ACTIVITIES OFFICER: AAO x 3, No gross motor deficits. [...] HTN, GERD and anxiety who presented to [facility] with symptoms he thought was panic [...] drip Tisha Coleman MD 02/21/2022 Pager # [phone] documented in this encounter Miscellaneous Notes Consult [...] for home exercise. 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 He is physically active most of the day and averages 5-14K steps per day on his pedometer. Phase II Referral: Participation in the outpatient cardiac rehabilitation program at [facility] was discussed. Patient agrees to a [...] tele. See scanned docs. Pt left floor [id number] for skilled labor, son stayed at bedside. Arrival from skilled labor, pt has bilateral groin sites, CDI. R [...] from the original note were not included. [facility] Dr. Rothman, [place] [id number] Inpatient CHIP/RECORD RETRIEVAL SPECIALIST Interventional Cardiology Consult Note Referring Provider: Channing Alfaro, [address] [place] [address] Reason for Consultation: Management of ostial LAD RECORD RETRIEVAL SPECIALIST Past Cardiac History and Relevant Comorbidities: DM [...] disease. He presented initially on 02/19 to [facility] with the feeling of a panic attack, that in retrospect was likely PND/orthopnea. Troponin was positive and ECG showed anterior Q waves. He was transferred to [facility] for further management. TTE showed EF of 20% with LAD WMA's. He denies any chest pain throughout any of this. Subsequent coronary angiography demonstrated a flushoccluded LAD collateralized by RCA septal and epicardial collaterals. CMR demonstrated apical scar with a partially viable anterior wall. Cardiac surgery and CHIP/RECORD RETRIEVAL SPECIALIST services were consulted. He describes no prior history of angina or prior OK. 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 He denies angina in his day to [...] 10 Units, 10 Units, Subcutaneous, Nightly, Oliver Barroso, TEST CAR DRIVER ??? insulin lispro (HumaLOG;Admelog) (100 unit/mL) subcutaneous injection vial 0-8 Units, 0-8 Units,Subcutaneous, TID WC, Oliver Barroso, TEST CAR DRIVER ? ? POCT Fingerstick Glucose, , , 4x Daily AC & HS AND insulin lispro (HumaLOG;Admelog) (100unit/mL) subcutaneous injection vial 1-4 Units, 1-4 Units, Subcutaneous, 4 Times Daily AC & HS, Oliver Barroso, TEST CAR DRIVER, 6 Units at 02/23/22 1246 ??? clopidogreL (Plavix) tablet 75 mg, 75 mg, Oral, Daily, Oliver Barroso, TEST CAR DRIVER, 75 mg at 02/23/22 1323 ??? metoprolol tartrate (Lopressor) tablet 25 mg, 25 mg, Oral, Q6H ERIC, Oliver Barroso, TEST CAR DRIVER, 25mg at 02/23/22 1246 ??? spironolactone (Aldactone) tablet 12.5 mg, 12.5 mg, Oral, Daily, Oliver Barroso, TEST CAR DRIVER, 12.5 mg at 02/23/22 0906 ??? furosemide (Lasix) tablet 20 mg, 20 mg, Oral, Daily, Ramirez Najera PA, 20 mg at 02/23/22 09 ??? atorvastatin (Lipitor) tablet 40 mg, 40 [...] PRN, Tisha Coleman MD, 1 mg at 02/22/222217 ??? thiamine (Vitamin B1) tablet 100 mg, 100 mg, Oral, Daily, Tisha Coleman MD, 100 mg at 02/23/22904 ??? folic acid (Folvite) tablet 1,000 mcg, 1,000 mcg, Oral, Daily, Tisha Coleman MD, 1,000 mcg at 02/23/22 0904 ??? multivitamin with minerals (Thera M) tablet 1 tablet, 1 tablet, Oral, Daily, Tisha Coleman MD, 1tablet at 02/23/22 0904 ROS: As per HPI, otherwise review of [...] assessment): ECG 02/20/2022: Normal sinus rhythm, anteroseptal OK TTE: Severely dilated and dysfunctional LV, EF 19%, RV normal, valves normal CMRI: EF 22%, distal anterior wall and apex scar, viable basilar and mid anterior wall, laminar thrombus in the LV Cath: RECORD RETRIEVAL SPECIALIST of the LAD, collaterals from RCA Labs [...] 11 13 20 CREATININE 0.72* 0.74* 0.80 RECORD RETRIEVAL SPECIALIST Scoring: J-RECORD RETRIEVAL SPECIALIST Score: 2 A/P: Gillian Branch is a 71 y.o. male who presents for evaluation for complex / high risk intervention of the LAD. CAD with RECORD RETRIEVAL SPECIALIST of the LAD: We had an extensive discussion surrounding the risks/benefits of RECORD RETRIEVAL SPECIALIST PCI and the higher risk nature of the procedure. Based on a J-RECORD RETRIEVAL SPECIALIST score of 2, this is a High complexity lesion and based on Progress RECORD RETRIEVAL SPECIALIST score, there is a 80% chance of success and a 2-4% chance of a major com plication. We discussed that RECORD RETRIEVAL SPECIALIST PCI performed in the setting of myocardial recovery is reasonable for symptom improvement, and that studies supporting LV functional recovery following revascularization of hibernating myocardium have had mixed results. I discussed the case with my colleagues from [facility] who agreed with an antegrade approach in [...] preserve potential surgical options. 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 Mobile Relation: Child Current Care Provided by: self Provides Primary Care For: pet(s) (2 cats) Caregiver if needed: child(chuckie), adult Quality of Family relationships: helpful, involved, supportive Community Resources being provided currently: none (Referral in to [facility] for counseling to address panic attacks/anxiety) Behavioral Health History: Hx of anxiety and depression. Most recently experiencing panic attacks since having back surgery several months ago. Has referral out to [facility] for counseling; waiting to hear back from [...] Coverage: Yes Preferred Pharmacy: No Pharmacies Listed [place] Status: Patient is a : Yes Are you enrolled in the [place] for [place]?: No Primary Care Provider: Navin Souza MD [phone] Patient/Caregiver Goals of Treatment: Pt eager to recover and return home. Hoping to get a handle onpanic attacks. Potential Needs for Transition of Care: none Agency Referrals: Not Applicable Transportation: no concerns Transportation Anticipated: family or friend will provide Concerns to be Addressed: denies needs/concerns at this time Assessment: Patient is admitted to Cardiology service for NSTEMI Plan: Pt to follow up with [facility] for counseling; otherwise, pt denies needs or concerns. Pt is aware that treatment team and care management team are available for needs and concerns. A member of the Care Management team will continue to monitor progress, follow for continuity of care and assist with transition of care planning. VIVIEN Ramesh, ENROLLMENT MANAGEMENT MANAGER [place] Office of Care Management [phone] Plan of Care - Tisha Coleman MD [...] further details. Tisha Coleman MD 02/20/2022 Pager [phone] documented in this encounter Plan of Treatment [...] Signature POC Glucose 179 65 - 199 [place] mg/dL [facility] Comment: Supplemental ranges: <140 mg/dL before meals <180 mg/dL all other times of the day Specimen Anatomical Collection Method Collection Time Receive d Time (Source) Location / / Volume Laterality Blood 02/28/2022 11:39 02/28/2022 AM EDT 11:39 AM EDT Ben Schaeffer MD POINT OF CARE TEST ORDERABLE S Performing Organization Address City/State/[place] [address] POCT Glucose (02/28/2022 7:54 AM EDT) athologist Signature POC Glucose 160 65 - 199 [place] mg/dL [facility] Comment: Supplemental ranges: <140 mg/dL before meals <180 mg/dL all other times of the day Specimen Anatomical Collection Method Collection Time Receive d Time (Source) Location / / Volume Laterality Blood 02/28/2022 7:54 AM 7:54 EDT AM EDT Ben Schaeffer MD POINT OF CARE TEST ORDERABLE S Performing Organization Address City/State/[place] [address] (ABNORMAL) Parasite Identification Tick (02/28/2022 7:15 AM EDT) Component Value Ref Test Analysis Performed At [facility] gist Range Method Time Signature Parasite Specimen CAR[place] Identification submitted for [facility] Derm[facility] species (A) Organism Dermacentor [place] species (A) [facility] Specimen Anatomical Collection Method Collection Time Receive d Time (Source) Location / / Volume Laterality Tick 02/28/2022 7:15 AM 2 9:13 EDT AM EDT Resulting Agency Comment Spec In Lab Robert Delarosa MD MICROBIOLOGY - GENERAL ORDER ROSEY Performing Organization Address City/[facility]/ZIP Code Phon e Number [place] [phone] EKG 12 Lead (02/28/2022 6:15 AM EDT) Component Value Ref Range Test Analysis Performed Pathologis t Method Time At Signature Ventricular rate 68 BPM MUSE SYSTEM Atrial Rate 68 BPM MUSE SYSTEM P-R Interval 178 ms MUSE SYSTEM QRS Duration 114 ms MUSE SYSTEM Q-T Interval 424 ms MUSE SYSTEM QTC Calculated 450 ms MUSE SYSTEM (Bezet) Calculated P Hosmer 60 degrees MUSE SYSTEM Calculated R Hosmer -36 degrees MUSE SYSTEM Calculated T Hosmer 122 degrees MUSE SYSTEM INTERPRETATION Normal sinus [...] int erpretation Confirmed by fellow Wesley Almonte ([id number]) on 02/28/2022 5:20:07 PM Confirmed by MD Chang Danette ([id number]) on 03/01/2022 8:27:08 AM Specimen Anatomical Collection Method Collection Time Receive d Time (Source) Location / / Volume Laterality 02/28/2022 6:15 AM 2 8:27 EDT AM EDT Oliver Barroso APRN ECG ORDERABLES Performing Organization Address City/[facility]/ZIP Code Phon e Number MUSE SYSTEM Differential, Automated (02/28/2022 3:35 AM EDT) P athologist Signature Neutrophils % 67.6 % [facility] Neutr Abs (ANC) 4.15 1.70 - [facility] 6.10 [facility] x10(3)/[facility] LABORATORY Lymphocytes % 16.4 % [facility] Lymphocytes Abs 1.0 0.9 - 3.2 [facility] x10(3)/[facility] LABORATORY Monocytes % 12.4 % [facility] Monocyte Abs 0.8 0.3 - 0.9 [facility] x10(3)/[facility] LABORATORY Eosinophils % 2.8 % [facility] Eosinophils Abs 0.2 0.0 - 0.4 [facility] x10(3)/[facility] LABORATORY Basophils % 0.5 % [facility] Basophils Abs 0.0 0.0 - 0.1 [facility] x10(3)/[facility] LABORATORY Immature Gran % 0.30 % [facility] [...] Julianna Gran Abs 0.02 0.00 - 0.04 x10(3)/[facility] MAR Y [facility] LAB[facility] Specimen Anatomical Collection Method Collection Time Receive d Time (Source) Location / / Volume Laterality Blood 02/28/2022 3:35 AM 2 4:14 EDT AM EDT Resulting Agency Comment Spec In Lab Oliver Barroso APRN HEMATOLOGY ORDERABLES Performing Organization Address City/State/[place] [address] (ABNORMAL) Hemogram (02/28/2022 3:35 AM EDT) Analysis Performed At Patho logist Time Signature WBC 6.1 4.0 - 9.5 [facility] x10(3)/[facility] LABORATORY RBC 4.62 4.58 - [facility] 5.54 [facility] x10(6)/[facility] LABORATORY Hemoglobin 15.0 13.7 - [facility] 16.5 g/dL [facility] Hematocrit 43.1 40.5 - [facility] 48.5 % [facility] MCV 93.3 (H) 82.9 - [facility] 93.1 [facility] LABORATORY MCH 32.5 (H) 27.5 - [place] 32.1 pg [facility] MCHC 34.8 32.0 - [place] 35.7 g/dL [facility] Platelets 167 145 - 357 [place] x10(3)/[facility] LABORATORY RDWSD 42.9 36.0 - [place] 45.0 [facility] LABORATORY RDWCV 12.4 11.4 - [place] 13.8 % [facility] MPV 12.0 7.6 - 12.9 [place] [facility] LABORATORY nRBC % Auto 0.0 % [facility] nRBC Abs Auto 0.000 0.000 - [place] 0.000 [facility] x10(3)/[facility] LABORATORY Specimen Anatomical Collection Method Collection Time Receive d Time (Source) Location / / Volume Laterality Blood 02/28/2022 3:35 AM 2 4:14 EDT AM EDT Resulting Agency Comment Spec In Lab Oliver Barroso APRN HEMATOLOGY ORDERABLES Performing Organization Address City/State/[place] [address] Magnesium (02/28/2022 3:35 AM EDT) P athologist Signature Magnesium 0.79 0.69 - 1.07 [facility] [place] mmol/L [facility] Specimen Anatomical Collection Method Collection Time Receive d Time (Source) Location / / Volume Laterality Blood 02/28/2022 3:35 AM 2 4:14 EDT AM EDT Resulting Agency Comment Spec In Lab Oliver Barroso APRN CHEMISTRY ORDERABLES Performing Organization Address City/[facility]/[place] [address] (ABNORMAL) BMP w/fasting Glucose (02/28/2022 3:35 AM EDT) P athologist Signature Glucose 119 (H) 65 - 99 [facility] [place] Fasting mg/dL [facility] Comment: ?Fasting* Glucose Interpretive C [...] 2009 BUN 15 10 - 20 mg/dL [facility] Creatinine 0.89 0.80 - 1.50 mg/dL [facility] Sodium 135 135 - 145 mmol/L [facility] Potassium 4.3 3.5 - 5.0 mmol/L [facility] Comment: Please note: ??Patients with WBC [...] Anion Gap 9 5 - 15 mmol/L [facility] Calcium 9.0 8.5 - 10.5 mg/dL [facility] Estimated GFR 93 >=60 mL/min/1.73 m?? [...] Resulting Agency Comment Spec In Lab Oliver Barroso TEST CAR DRIVER CHEMISTRY ORDERABLES Performing Organization Address City/[facility]/[place] [address] POCT Glucose (02/27/2022 8:50 PM EDT) athologist Signature POC Glucose 140 65 - 199 [facility] mg/dL [facility] Comment: Supplemental ranges: <140 mg/dL before meals <180 mg/dL all other times of the day Specimen Anatomical Collection Method Collection Time Receive d Time (Source) Location / / Volume Laterality Blood 02/27/2022 8:50 PM 2 8:50 EDT PM EDT Ben Schaeffer MD POINT OF CARE TEST ORDERABLE S Performing Organization Address City/[facility]/[place] [address] (ABNORMAL) POCT Glucose (02/27/2022 4:07 PM EDT) athologist Signature POC Glucose 210 (H) 65 - 199 [facility] mg/dL [facility] Comment: Supplemental ranges: <140 mg/dL before meals <180 mg/dL all other times of the day Specimen Anatomical Collection Method Collection Time Receive d Time (Source) Location / / Volume Laterality Blood 02/27/2022 4:07 PM 2 4:07 EDT PM EDT Ben Schaeffer MD POINT OF CARE TEST ORDERABLE S Performing Organization Address City/[facility]/[place] [address] EKG 12 Lead (02/27/2022 1:34 PM EDT) Component Value Ref Range Test Analysis Performed Pathologis t Method Time At Signature Ventricular rate 76 BPM MUSE SYSTEM Atrial Rate 76 BPM MUSE SYSTEM P-R Interval 188 ms MUSE SYSTEM QRS Duration 124 ms MUSE SYSTEM Q-T Interval 430 ms MUSE SYSTEM QTC Calculated 483 ms MUSE SYSTEM (Bezet) Calculated P Hosmer 53 degrees MUSE SYSTEM Calculated R Hosmer -38 degrees MUSE SYSTEM Calculated T Hosmer 107 degrees MUSE SYSTEM INTERPRETATION Normal sinus rhythm MUSE SYSTEM Left axis deviation Minimal voltage criteria for LVH, may be normal variant ( Stratton product ) Abnormal ECG When compared with [...] Laterality Volume Narrative 02/27/2022 5:24 PM EDT ?[facility] ? Cardiac Cathete rization/Intervention Report ? Patient Name: Gillian Branch ? Procedure Date: 02/27/2022 ? A #: [id number] ? Primary Physician: Jose Luis Lopez ? Case #: [id number] ? File Name: [id number] ? Catheterization Order Number: [id number] ? [facility] ? Final Report [place], [place] ? Patient Name: ? Gillian Jose Carlos ? ID#: ?[id number] ? : ?1950 ? Procedure Date: ? February 27, 2022 ?Case #: ? [id number] ? Room: ? 6 ? Case Physician: ? Jose Luis Mcmullen n, M.D. ? Start: ?08:20 ?Fellow: ? Rudy Leyva G acad, M.D. ?Admission: ??02/20/2022 ? Discharge: [...] was designated as ASA Class IV. ?The [facility] clinical frailty scale is 4: Vulnerable. ? [...] procedure was Urgent. The indication for ?the skilled labor visit is ACS great er than 24 [...] 8 Fr. EBU 3.5 ? guide. ??A iwl ounted 3.50 x 22 mm Resolute ALONZO [...] 8 Fr. EBU 3.5 ? guide. ??The le silvino was predilated with a 2.50mm NC EUPHORA [...] may require ?modification of this regimen. C onsult [facility] Interventional Cardiology for ?questions. ?This patient has [...] any medical treatment. Consult ?http://tools.acc.org/DAPTriskap p/#!/content/calculator/ or [facility] ?Interventional Cardiology for q uestions ? Conclusions: [...] Dual Antiplatelet (DAPT) Recommendations above ?* Successful RECORD RETRIEVAL SPECIALIST PCI of the LAD with preservation of all side branches. ? Complications/Events: ?The patient had no complication s during these procedures. ? Comments: ?Challenging case of a 66 y/o ma n with a newly dx'ed ischemic ?cardiomyopathy presenting with partially viable LAD territory myocardium ?and an ostial LAD RECORD RETRIEVAL SPECIALIST. MCS was utilized using an IABP given EF of 19% and ?anticipated unprotected LM PCI. Given LV thrombus, impella could not be ?utilized and therefore this was a planned antegrade only case. Initial ?attempts to wire the vessel wit h a pilot manager 200 were unsuccessful. The wire ?was continually [...] advanced into the D1 (supported ?by a NicOx flex microcather), a nd redirected intraplaque. After [...] ?protection/thrombectomy-coronary, access site angiography, IABP insertion ?in skilled labor, IVUS # coronary, diamond oplasty-coronary, vascular closure ?device, IABP removal in skilled labor a nd transthoracic echo . ? Jose Luis S Jessica, M.D. ? Electronically Signed by: Jose Luis So in, M.D. ? Report Finalized: 02/27/2022 ??17:17 ? Report Last Ammended: 04/02/2022 ??15:16 ? Procedure Note Jose Luis Lopez MD - 04/02/2022Format ting of this note might be different from the original. [facility] Cardiac Catheterization/Intervention Re port Patient Name: Gillian Branch Procedure Date: 02/27/2022 A #: [id number] Primary Physician: Jose Luis Lopez Case #: [id number] File Name: [id number] Catheterization Order Number: [id number] [facility] Final Report [place], [place] Patient Name: Gillian Branch ID#: [id number] : 1950 Procedure Date: February 27, 2022 [...] was designated as ASA Class IV. The [facility] clinical frailty scale is 4: V [...] e was Urgent. The indication for the skilled labor visit is ACS greater than 24 hrs [...] this intervention was 20%. The final TI OK flow was 3. Left Circumflex Artery Proximal [...] 8 Fr EBU 3.5 guide utilizing an [place] [employer]. The final outcome was defined as [...] require modification of this regimen. Consult D [facility] Interventional Cardiology for questions. This patient has [...] any medical treatment. Consult http://tools.acc.org/DAPTriskapp/#!/con tent/calculator/ or [facility] Interventional Cardiology for questions Conclusions: * Significant [...] Antiplatelet (DAPT) Recommen dations above * Successful RECORD RETRIEVAL SPECIALIST PCI of the LAD with pr eservation of all side branches. Complications/Events: The patient had no complications during these procedures. Comments: Challenging case of a 66 y/o man with a newly dx'ed ischemic cardiomyopathy presenting with partiall y viable LAD territory myocardium and an ostial LAD RECORD RETRIEVAL SPECIALIST. MCS was utilized using an IABP given EF of 19% and anticipated unprotected LM PCI. Given L V thrombus, impella could not be utilized and therefore this was a plann ed antegrade only case. Initial attempts to wire the vessel with a bronwyn t 200 were unsuccessful. The wire was [...] e coronary angiography, left heart catheterization, stent insertion-delgadillo ry, embolic protection/thrombectomy-coronary, acces s site angiography, IABP insertion in skilled labor, IVUS # coronary, angioplas ty-coronary, vascular closure device, IABP removal in skilled labor and tr ansthoracic echo . Jose Luis Lopez M.D. Electronically Signed by: Jose Luis velázquez M.D. Report Finalized: 02/27/2022 17:17 Report Last Ammended: 04/02/2022 15:16 Jose Luis Lopez MD CARDIAC CATH ORDERABLES POCT Glucose (02/27/2022 7:49 AM EDT) athologist Signature POC Glucose 161 65 - 199 [facility] mg/dL [facility] Comment: Supplemental ranges: <140 mg/dL before meals <180 mg/dL all other times of the day Specimen Anatomical Collection Method Collection Time Receive d Time (Source) Location / / Volume Laterality Blood 02/27/2022 7:49 AM 2 7:49 EDT AM EDT Ben Schaeffer MD POINT OF CARE TEST ORDERABLE S Performing Organization Address City/State/ZIP Code Phon e Number [place] [phone] LAB[address] Drive EKG 12 Lead (02/27/2022 6:12 AM EDT) Component Value Ref Range Test Analysis Performed Pathologis t Method Time At Signature Ventricular rate 73 BPM MUSE SYSTEM Atrial Rate 73 BPM MUSE SYSTEM P-R Interval 184 ms MUSE SYSTEM QRS Duration 122 ms MUSE SYSTEM Q-T Interval 428 ms MUSE SYSTEM QTC Calculated 471 ms MUSE SYSTEM (Bezet) Calculated P Hosmer 61 degrees MUSE SYSTEM Calculated R Hosmer -46 degrees MUSE SYSTEM Calculated T Hosmer 126 degrees MUSE SYSTEM INTERPRETATION Normal sinus [...] / / Volume Laterality 02/27/2022 6:12 AM 2 8:12 EDT AM EDT Oliver Barroso APRN ECG ORDERABLES Performing Organization Address City/State/ZIP Code Phon e Number MUSE SYSTEM Differential, Automated (02/27/2022 3:37 AM EDT) P athologist Signature Neutrophils % 62.3 % [facility] Neutr Abs (ANC) 3.89 1.70 - [facility] 6.10 [facility] x10(3)/[facility] LABORATORY Lymphocytes % 21.8 % [facility] Lymphocytes Abs 1.4 0.9 - 3.2 [facility] x10(3)/[facility] LABORATORY Monocytes % 11.7 % [facility] Monocyte Abs 0.7 0.3 - 0.9 [facility] x10(3)/[facility] [facility] LABORATORY Eosinophils % 3.4 % [facility] LABORATORY Eosinophils Abs 0.2 0.0 - 0.4 [facility] x10(3)/[facility] LABORATORY Basophils % 0.6 % [facility] LABORATORY Basophils Abs 0.0 0.0 - 0.1 [facility] x10(3)/[facility] LABORATORY Immature Gran % 0.20 % [facility]ITY [...] Julianna Gran Abs 0.01 0.00 - 0.04 x10(3)/[facility] LABORATORY Specimen Anatomical Collection Method Collection Time Receive d Time (Source) Location / / Volume Laterality Blood 02/27/2022 3:37 AM 4:01 EDT AM EDT Resulting Agency Comment Spec In Lab Oliver Barroso TEST CAR DRIVER HEMATOLOGY ORDERABLES Performing Organization Address City/State/[place] [address] (ABNORMAL) Hemogram (02/27/2022 3:37 AM EDT) Analysis Performed At Patho logist Time Signature WBC 6.2 4.0 - 9.5 [facility] x10(3)/[facility] LABORATORY RBC 5.32 4.58 - [facility] 5.54 [facility] x10(6)/[facility] LABORATORY Hemoglobin 16.6 (H) 13.7 - [facility]/dL [facility] LABORATORY Hematocrit 48.5 40.5 - [facility] 48.5 % [facility] LABORATORY MCV 91.2 82.9 - [facility] 93.1 fL [facility] LABORATORY MCH 31.2 27.5 - [facility] 32.1 pg [facility] LABORATORY MCHC 34.2 32.0 - [facility] 35.7 g/dL [facility] LABORATORY Platelets 178 145 - 357 [place] x10(3)/[facility] LABORATORY RDWSD 42.0 36.0 - [place] 45.0 [facility] LABORATORY RDWCV 12.5 11.4 - [place] 13.8 % [facility] LABORATORY MPV 12.2 7.6 - 12.9 [place] [facility] LABORATORY nRBC % Auto 0.0 % [facility] LABORATORY nRBC Abs Auto 0.000 0.000 - [place] 0.000 [facility] x10(3)/[facility] LABORATORY Specimen Anatomical Collection Method Collection Time Receive d Time (Source) Location / / Volume Laterality Blood 02/27/2022 3:37 AM 2 4:01 EDT AM EDT Resulting Agency Comment Spec In Lab Oliver Barroso TEST CAR DRIVER HEMATOLOGY ORDERABLES Performing Organization Address City/[facility]/ZIP Code Phon e Number [address] Magnesium (02/27/2022 3:37 AM EDT) athologist Signature Magnesium 0.80 0.69 - 1.07 [facility] [place] mmol/L [facility] LABORATORY Specimen Anatomical Collection Method Collection Time Receive d Time (Source) Location / / Volume Laterality Blood 02/27/2022 3:37 AM 2 4:01 EDT AM EDT Resulting Agency Comment Spec In Lab Oliver Diane Jeanmarie HOPPERN CHEMISTRY ORDERABLES Performing Organization Address City/[facility]/[place] [address] (ABNORMAL) BMP w/fasting Glucose (02/27/2022 3:37 AM EDT) P athologist Signature Glucose 152 (H) 65 - 99 [facility] [place] Fasting mg/dL [facility] LABORATORY Comment: ?Fasting* Glucose Interpretive C [...] 2009 BUN 17 10 - 20 mg/dL [facility] LABORATORY Creatinine 0.72 (L) 0.80 - 1.50 mg/dL [facility] LABORATORY Sodium 135 135 - 145 mmol/L [facility] LABORATORY Potassium 4.0 3.5 - 5.0 mmol/L [facility] LABORATORY Comment: Please note: ??Patients with WBC [...] Anion Gap 12 5 - 15 mmol/L [facility] LABORATORY Calcium 9.2 8.5 - 10.5 mg/dL [facility] LABORATORY Estimated GFR 95 >=60 mL/min/1.73 m?? [...] EDT Resulting Agency Comment Spec In Lab Oliverlester Barroso APRN CHEMISTRY ORDERABLES Performing Organization Address City/[facility]/[place] [address] POCT Glucose (02/26/2022 9:14 PM EDT) athologist Signature POC Glucose 152 65 - 199 [facility] [place] mg/dL [facility] LABORATORY Comment: Supplemental ranges: <140 mg/dL before meals <180 mg/dL all other times of the day Specimen Anatomical Collection Method Collection Time Receive d Time (Source) Location / / Volume Laterality Blood 02/26/2022 9:14 PM 2 9:14 EDT PM EDT Ben Schaeffer MD POINT OF CARE TEST ORDERABLE S Performing Organization Address City/[facility]/[place] [address] POCT Glucose (02/26/2022 4:42 PM EDT) athologist Signature POC Glucose 146 65 - 199 [facility] mg/dL [facility] LABORATORY Comment: Supplemental ranges: <140 mg/dL before meals <180 mg/dL all other times of the day Specimen Anatomical Collection Method Collection Time Receive d Time (Source) Location / / Volume Laterality Blood 02/26/2022 4:42 PM 2 4:42 EDT PM EDT Ben Schaeffer MD POINT OF CARE TEST ORDERABLE S Performing Organization Address City/State/[place] [address] POCT Glucose (02/26/2022 11:30 AM EDT) athologist Signature POC Glucose 178 65 - 199 [facility] [place] mg/dL [facility] LABORATORY Comment: Supplemental ranges: <140 mg/dL before meals <180 mg/dL all other times of the day Specimen Anatomical Collection Method Collection Time Receive d Time (Source) Location / / Volume Laterality Blood 02/26/2022 11:30 02/26/2022 AM EDT 11:30 AM EDT Ben Schaeffer MD POINT OF CARE TEST ORDERABLE S Performing Organization Address City/State/ZIP Code [place] [address] ECHOCARDIOGRAM LIMITED W CONTRAST W COLOR DOPP (02/26/2022 7:49 AM EDT) Anatomical Region Laterality Modality Cardiac Other Specimen (Source) Anatomical Collection Method Collection Time Re ceived Time Location / / Volume Laterality 02/26/2022 7:18 AM EDT Narrative 02/26/2022 9:46 AM EDT ?[facility] ?[address] ? [place], [place] [address] ?Voice: ?Fax: ? Echocardiogram Report Name: GILLIAN BRANCH ?Study Date: 02/26/2022 07:18 AM ?BP: 119/71 mmHg ?Patient Lo cation: ICCU^442^B : 1950 ?Height: 76 in ?Account: [id number] Age: 71 yrs ?Weight: 229 lb Gender: Male ? BSA : 2.3 m2 Ordering Physician: OLIVER BARROSO Referring Physician: CHANNING ALFARO Performed By: ABBY Dejesus Reason For Study: NSTEMI Interpretation Summary Limited study to assess for LV thrombus. There is no evidence of LV thrombus on t his study. Left ventricular systolic function is se verely reduced. Left ventricular ejection fraction is estimated visually at 20%. Procedure Limited - 56982. Color Doppler - 06622. Image enhancement Definity was used for left [...] note might be different from the original. [place] [address] [place] [address] Voice: Fax: Echocardiogram Report Name: GILLIAN BRANCH Study Date: 02/26/2022 07:18 AM BP: 119/71 mmHg Patient Location: [facility] 42^ : 1950 Height: 76 in Account: 1 [id number] Age: 71 yrs Weight: 229 lb Gender: Male BSA: 2.3 m2 Ordering Physician: OLIVER BARROSO Referring Physician: CHANNING ALFARO Performed By: ABBY Dejesus Reason For Study: NSTEMI Interpretation Summary Limited study to assess for LV thrombus. There is no evidence of LV thrombus on t his study. Left ventricular systolic function is se verely reduced. Left ventricular ejection fraction is estimated visually at 20%. Procedure Limited - 34953. Color Doppler - 47000. Image enhancement Definity was used for left [...] - 6-14 large Aneurysmal 15-16 diffuse Oliver Barroso APRN ECHO ORDERABLES POCT Glucose (02/26/2022 7:23 AM EDT) athologist Signature POC Glucose 147 65 - 199 [facility] mg/dL [facility] LABORATORY Comment: Supplemental ranges: <140 mg/dL before meals <180 mg/dL all other times of the day Specimen Anatomical Collection Method Collection Time Receive d Time (Source) Location / / Volume Laterality Blood 02/26/2022 7:23 AM 7:23 EDT AM EDT Ben Schaeffer MD POINT OF CARE TEST ORDERABLE S Performing Organization Address City/State/[place] [address] EKG 12 Lead (02/26/2022 6:06 AM EDT) Component Value Ref Range Test Analysis Performed Pathologis t Method Time At Signature Ventricular rate 62 BPM MUSE SYSTEM Atrial Rate 62 BPM MUSE SYSTEM P-R Interval 184 ms MUSE SYSTEM QRS Duration 122 ms MUSE SYSTEM Q-T Interval 448 ms MUSE SYSTEM QTC Calculated 454 ms MUSE SYSTEM (Bezet) Calculated P Hosmer 52 degrees MUSE SYSTEM Calculated R Hosmer -43 degrees MUSE SYSTEM Calculated T Hosmer 144 degrees MUSE SYSTEM INTERPRETATION Normal sinus rhythm MUSE SYSTEM Left axis deviation Left ventricular hypertrophy with QRS widening a nd repolarization abnormality Cannot rule out Septal infarct (cited on or before 21-Feb-20) Abnormal ECG When compared with ECG of 25-FEB-2022 06:18, No significant change was found Confirmed by MD Chang Danette ([id number]) on 02/26/2022 5:18:36 PM Specimen Anatomical Collection Method Collection Time Receive d Time (Source) Location / / Volume Laterality 02/26/2022 6:06 AM 2 5:18 EDT PM EDT Oliver Barroso TEST CAR DRIVER ECG ORDERABLES Performing Organization Address City/State/ZIP Code Phon e Number MUSE SYSTEM Differential, Automated (02/26/2022 3:55 AM EDT) P athologist Signature Neutrophils % 54.3 % [facility] LABORATORY Neutr Abs (ANC) 2.61 1.70 - [facility] 6.10 [facility] x10(3)[facility] LABORATORY Lymphocytes % 29.8 % [facility] LABORATORY Lymphocytes Abs 1.4 0.9 - 3.2 [facility] x10(3)/[facility] LABORATORY Monocytes % 11.3 % [facility] LABORATORY Monocyte Abs 0.5 0.3 - 0.9 [facility] x10(3)/[facility] LABORATORY Eosinophils % 4.0 % [facility] LABORATORY Eosinophils Abs 0.2 0.0 - 0.4 [facility] x10(3)/[facility] LABORATORY Basophils % 0.4 % [facility] LABORATORY Basophils Abs 0.0 0.0 - 0.1 [facility] x10(3)/[facility] LABORATORY Immature Gran % 0.20 % [facility] LABORATORY Comment: Immature granulocytes(IG's)percentage an d absolute count will include metamyelocytes, myelocytes, and promyelo cytes. Blood smears from CBCs yielding IG's will be scanned manually for alfa gonsalez. If this scan disagrees with the automated IG or if promyelocytes are not ed, a manual differential will be performed. Julianna Gran Abs 0.01 0.00 - 0.04 x10(3)/[facility] Y [facility] LABORATORY Specimen Anatomical Collection Method Collection Time Receive d Time (Source) Location / / Volume Laterality Blood 02/26/2022 3:55 AM 2 4:09 EDT AM EDT Resulting Agency Comment Spec In Lab Oliver Barroso TEST CAR DRIVER HEMATOLOGY ORDERABLES Performing Organization Address City/State/[place] [address] Hemogram (02/26/2022 3:55 AM EDT) P athologist Signature WBC 4.8 4.0 - 9.5 [facility] [employer] x10(3)/[facility] LABORATORY RBC 5.24 4.58 - [place] 5.54 [facility] x10(6)/[facility] LABORATORY Hemoglobin 16.5 13.7 - [facility] [place] 16.5 g/dL [facility] LABORATORY Hematocrit 48.1 40.5 - [facility] [place] 48.5 % [facility] LABORATORY MCV 91.8 82.9 - [facility] [place] 93.1 [facility] LABORATORY MCH 31.5 27.5 - [place] 32.1 pg [facility] LABORATORY MCHC 34.3 32.0 - [place] 35.7 g/dL [facility] LABORATORY Platelets 173 145 - 357 [facility] x10(3)/[facility] LABORATORY RDWSD 42.4 36.0 - [place] [employer] 45.0 [facility] LABORATORY RDWCV 12.5 11.4 - [place] [employer] 13.8 % [facility] LABORATORY MPV 12.2 7.6 - 12.9 [facility] [employer] [facility] LABORATORY nRBC % Auto 0.0 % [facility] LABORATORY nRBC Abs Auto 0.000 0.000 - [facility] [employer] 0.000 [facility] x10(3)/[facility] LABORATORY Specimen Anatomical Collection Method Collection Time Receive d Time (Source) Location / / Volume Laterality Blood 02/26/2022 3:55 AM 4:09 EDT AM EDT Resulting Agency Comment Spec In Lab Oliver Barroso TEST CAR DRIVER HEMATOLOGY ORDERABLES Performing Organization Address City/State/[place] [address] Magnesium (02/26/2022 3:55 AM EDT) P athologist Signature Magnesium 0.79 0.69 - 1.07 [facility] mmol/L [facility] LABORATORY Specimen Anatomical Collection Method Collection Time Receive d Time (Source) Location / / Volume Laterality Blood 02/26/2022 3:55 AM 2 4:09 EDT AM EDT Resulting Agency Comment Spec In Lab Oliver Barroso RENETTA CHEMISTRY ORDERABLES Performing Organization Address City/State/[place] [address] (ABNORMAL) BMP w/fasting Glucose (02/26/2022 3:55 AM EDT) P athologist Signature Glucose 144 (H) 65 - 99 [facility] Fasting mg/dL [facility] LABORATORY Comment: ?Fasting* Glucose Interpretive C [...] 2009 BUN 14 10 - 20 mg/dL [facility] LABORATORY Creatinine 0.75 (L) 0.80 - 1.50 mg/dL [facility] LABORATORY Sodium 137 135 - 145 mmol/L [facility] LABORATORY Potassium 4.0 3.5 - 5.0 mmol/L [facility] LABORATORY Comment: Please note: ??Patients with WBC [...] Anion Gap 11 5 - 15 mmol/L [facility] LABORATORY Calcium 9.4 8.5 - 10.5 mg/dL [facility] LABORATORY Estimated GFR 94 >=60 mL/min/1.73 m?? [...] Resulting Agency Comment Spec In Lab Oliver Barroso APRN CHEMISTRY ORDERABLES Performing Organization Address City/State/ZIP Code Phon e Number [address] POCT Glucose (02/25/2022 9:05 PM EDT) P athologist Signature POC Glucose 126 65 - 199 [facility] mg/dL [facility] LABORATORY Comment: Supplemental ranges: <140 mg/dL before meals <180 mg/dL all other times of the day Specimen Anatomical Collection Method Collection Time Receive d Time (Source) Location / / Volume Laterality Blood 02/25/2022 9:05 PM 2 9:05 EDT PM EDT Ben Schaeffer MD POINT OF CARE TEST ORDERABLE S Performing Organization Address City/State/[place] [address] POCT Glucose (02/25/2022 3:21 PM EDT) athologist Signature POC Glucose 125 65 - 199 [place] mg/dL [facility] LABORATORY Comment: Supplemental ranges: <140 mg/dL before meals <180 mg/dL all other times of the day Specimen Anatomical Collection Method Collection Time Receive d Time (Source) Location / / Volume Laterality Blood 02/25/2022 3:21 PM 2 3:21 EDT PM EDT Ben Schaeffer MD POINT OF CARE TEST ORDERABLE S Performing Organization Address City/State/ZIP Code Phon e Number [address] POCT Glucose (02/25/2022 11:26 AM EDT) athologist Signature POC Glucose 150 65 - 199 [place] mg/dL [facility] LABORATORY Comment: Supplemental ranges: <140 mg/dL before meals <180 mg/dL all other times of the day Specimen Anatomical Collection Method Collection Time Receive d Time (Source) Location / / Volume Laterality Blood 02/25/2022 11:26 02/25/2022 AM EDT 11:26 AM EDT Ben Schaeffer MD POINT OF CARE TEST ORDERABLE S Performing Organization Address City/State/[place] [address] POCT Glucose (02/25/2022 7:21 AM EDT) athologist Signature POC Glucose 144 65 - 199 [place] mg/dL [facility] LABORATORY Comment: Supplemental ranges: <140 mg/dL before meals <180 mg/dL all other times of the day Specimen Anatomical Collection Method Collection Time Receive d Time (Source) Location / / Volume Laterality Blood 02/25/2022 7:21 AM 2 7:21 EDT AM EDT Ben Schaeffer MD POINT OF CARE TEST ORDERABLE S Performing Organization Address City/State/[place] [address] EKG 12 Lead (02/25/2022 6:18 AM EDT) Component Value Ref Range Test Analysis Performed Pathologis t Method Time At Signature Ventricular rate 61 BPM MUSE SYSTEM Atrial Rate 61 BPM MUSE SYSTEM P-R Interval 184 ms MUSE SYSTEM QRS Duration 120 ms MUSE SYSTEM Q-T Interval 458 ms MUSE SYSTEM QTC Calculated 461 ms MUSE SYSTEM (Bezet) Calculated P Hosmer 38 degrees MUSE SYSTEM Calculated R Hosmer -44 degrees MUSE SYSTEM Calculated T Hosmer -150 degrees MUSE SYSTEM INTERPRETATION Normal sinus rhythm MUSE SYSTEM Left axis deviation Left ventricular hypertrophy with QRS widening ( R in aVL , Stratton product ) Cannot rule out Septal infarct (cited on or before 21-Feb-20) Abnormal ECG When compared with ECG of 23-FEB-2022 06:04, (unconfirmed) No significant change was found Confirmed by MD ANALIA, BEN ([id number]) on 02/25/2022 11:51:31 A M Specimen Anatomical Collection Method Collection Time Receive d Time (Source) Location / / Volume Laterality 02/25/2022 6:18 AM 2 EDT 11:51 AM EDT Oliver Barroso APRN ECG ORDERABLES Performing Organization Address City/State/ZIP Code Phon e Number MUSE SYSTEM POCT Glucose (02/24/2022 8:47 PM EDT) athologist Signature POC Glucose 155 65 - 199 [facility] mg/dL [facility] LABORATORY Comment: Supplemental ranges: <140 mg/dL before meals <180 mg/dL all other times of the day Specimen Anatomical Collection Method Collection Time Receive d Time (Source) Location / / Volume Laterality Blood 02/24/2022 8:47 PM 2 8:47 EDT PM EDT Ben Schaeffer MD POINT OF CARE TEST ORDERABLE S Performing Organization Address City/State/[place] [address] POCT Glucose (02/24/2022 4:06 PM EDT) athologist Signature POC Glucose 92 65 - 199 [facility] LABORATORY Comment: Supplemental ranges: <140 mg/dL before meals <180 mg/dL all other times of the day Specimen Anatomical Collection Method Collection Time Receive d Time (Source) Location / / Volume Laterality Blood 02/24/2022 4:06 PM 2 4:06 EDT PM EDT Ben Schaeffer MD POINT OF CARE TEST ORDERABLE S Performing Organization Address City/State/ZIP Code Phon e Number [address] POCT Glucose (02/24/2022 11:27 AM EDT) P athologist Signature POC Glucose 186 65 - 199 [place] [facility] mg/dL [facility] LABORATORY Comment: Supplemental ranges: <140 mg/dL before meals <180 mg/dL all other times of the day Specimen Anatomical Collection Method Collection Time Receive d Time (Source) Location / / Volume Laterality Blood 02/24/2022 11:27 02/24/2022 AM EDT 11:27 AM EDT Ben Schaeffer MD POINT OF CARE TEST ORDERABLE S Performing Organization Address City/State/ZIP Code Phon e Number [address] POCT Glucose (02/24/2022 8:49 AM EDT) athologist Signature POC Glucose 148 65 - 199 [place] mg/dL [facility] LABORATORY Comment: Supplemental ranges: <140 mg/dL before meals <180 mg/dL all other times of the day Specimen Anatomical Collection Method Collection Time Receive d Time (Source) Location / / Volume Laterality Blood 02/24/2022 8:49 AM 2 8:49 EDT AM EDT Ben Schaeffer MD POINT OF CARE TEST ORDERABLE S Performing Organization Address City/State/[place] [address] POCT Glucose (02/24/2022 7:29 AM EDT) P athologist Signature POC Glucose 148 65 - 199 [place] mg/dL [facility] LABORATORY Comment: Supplemental ranges: <140 mg/dL before meals <180 mg/dL all other times of the day Specimen Anatomical Collection Method Collection Time Receive d Time (Source) Location / / Volume Laterality Blood 02/24/2022 7:29 AM 2 7:29 EDT AM EDT Ben Schaeffer MD POINT OF CARE TEST ORDERABLE S Performing Organization Address City/State/ZIP Code Phon e Number [address] Differential, Automated (02/24/2022 3:15 AM EDT) P athologist Signature Neutrophils % 63.5 % [facility] LABORATORY Neutr Abs (ANC) 4.04 1.70 - [facility] 6.10 [facility] x10(3)/[facility] LABORATORY Lymphocytes % 24.3 % [facility] LABORATORY Lymphocytes Abs 1.6 0.9 - 3.2 [facility] x10(3)/[facility] LABORATORY Monocytes % 8.9 % [facility] LABORATORY Monocyte Abs 0.6 0.3 - 0.9 [facility] x10(3)/[facility] LABORATORY Eosinophils % 2.8 % [facility] LABORATORY Eosinophils Abs 0.2 0.0 - 0.4 [facility] x10(3)/[facility] LABORATORY Basophils % 0.3 % [facility] LABORATORY Basophils Abs 0.0 0.0 - 0.1 [facility] x10(3)/[facility] LABORATORY Immature Gran % 0.20 % UNIVERSITY [...] Julianna Gran Abs 0.01 0.00 - 0.04 x10(3)/[facility] MAR Y [facility] LABORATORY Specimen Anatomical Collection Method Collection Time Receive d Time (Source) Location / / Volume Laterality Blood 02/24/2022 3:15 AM 3:39 EDT AM EDT Resulting Agency Comment Spec In Lab Tisha Coleman MD HEMATOLOGY ORDERABLES Performing Organization Address City/[facility]/ZIP Code Phon e Number [address] Hemogram (02/24/2022 3:15 AM EDT) athologist Signature WBC 6.4 4.0 - 9.5 [facility] x10(3)/[facility] LABORATORY RBC 5.15 4.58 - [place] 5.54 [facility] x10(6)/[facility] LABORATORY Hemoglobin 16.0 13.7 - [facility] g/dL [facility] LABORATORY Hematocrit 47.2 40.5 - [facility] 48.5 % [facility] LABORATORY MCV 91.7 82.9 - [facility] 93.1 [facility] LABORATORY MCH 31.1 27.5 - [place] 32.1 pg [facility] LABORATORY MCHC 33.9 32.0 - [facility] 35.7 g/dL [facility] LABORATORY Platelets 167 145 - 357 [facility] x10(3)/[facility] LABORATORY RDWSD 42.5 36.0 - [facility] 45.0 [facility] LABORATORY RDWCV 12.5 11.4 - [facility] 13.8 % [facility] LABORATORY MPV 12.2 7.6 - 12.9 [facility] LABORATORY nRBC % Auto 0.0 % [facility] LABORATORY nRBC Abs Auto 0.000 0.000 - [facility] 0.000 [facility] x10(3)/[facility] LABORATORY Specimen Anatomical Collection Method Collection Time Receive d Time (Source) Location / / Volume Laterality Blood 02/24/2022 3:15 AM 2 3:39 EDT AM EDT Resulting Agency Comment Spec In Lab Tisha Coleman MD HEMATOLOGY ORDERABLES Performing Organization Address City/State/ZIP Code Phon e Number [place] [id number] Heparin (unfractionated) Level (02/24/2022 3:15 AM EDT) athologist Signature Heparin UFH 0.41 IU/mL [facility] LABORATORY Comment: Heparin (anti-Xa) levels should be [...] Organization Address City/State/[place] [address] (ABNORMAL) BMP w/fasting Glucose (02/24/2022 3:15 AM EDT) athologist Signature Glucose 155 (H) 65 - 99 [facility] Fasting mg/dL [facility] LABORATORY Comment: ?Fasting* Glucose Interpretive C [...] 2009 BUN 14 10 - 20 mg/dL [facility] LABORATORY Creatinine 0.79 (L) 0.80 - 1.50 mg/dL [facility] LABORATORY Sodium 136 135 - 145 mmol/L [facility] LABORATORY Potassium 3.8 3.5 - 5.0 mmol/L [facility] LABORATORY Comment: Please note: ??Patients with WBC [...] Anion Gap 11 5 - 15 mmol/L [facility] LABORATORY Calcium 9.2 8.5 - 10.5 mg/dL [facility] LABORATORY Estimated GFR 92 >=60 mL/min/1.73 m?? [...] Organization Address City/State/[place] [address] POCT Glucose (02/23/2022 8:48 PM EDT) P athologist Signature POC Glucose 144 65 - 199 [facility] mg/dL [facility] LABORATORY Comment: Supplemental ranges: <140 mg/dL before meals <180 mg/dL all other times of the day Specimen Anatomical Collection Method Collection Time Receive d Time (Source) Location / / Volume Laterality Blood 02/23/2022 8:48 PM 2 8:48 EDT PM EDT Ben Schaeffer MD POINT OF CARE TEST ORDERABLE S Performing Organization Address City/State/ZIP Code Phon e Number [address] POCT Glucose (02/23/2022 4:22 PM EDT) athologist Signature POC Glucose 139 65 - 199 [place] mg/dL [facility] LABORATORY Comment: Supplemental ranges: <140 mg/dL before meals <180 mg/dL all other times of the day Specimen Anatomical Collection Method Collection Time Receive d Time (Source) Location / / Volume Laterality Blood 02/23/2022 4:22 PM 2 4:22 EDT PM EDT Ben Schaeffer MD POINT OF CARE TEST ORDERABLE S Performing Organization Address City/[facility]/[place] [address] (ABNORMAL) POCT Glucose (02/23/2022 12:30 PM EDT) P athologist Signature POC Glucose 235 (H) 65 - 199 [place] mg/dL [facility] LABORATORY Comment: Supplemental ranges: <140 mg/dL before meals <180 mg/dL all other times of the day Specimen Anatomical Collection Method Collection Time Receive d Time (Source) Location / / Volume Laterality Blood 02/23/2022 12:30 02/23/2022 PM EDT 12:30 PM EDT Ben Schaeffer MD POINT OF CARE TEST ORDERABLE S Performing Organization Address City/State/[place] [address] COVID-19 PCR (02/23/2022 11:29 AM EDT) [facility] Method Time Signature SARS-CoV-2 Not Detected Not Detected [facility] RNA [facility] LABORATORY Comment: This result should be [...] diagnosis of COVID-19 is performed using the [employer] Natalio varghese JANINE S-CoV-2 Assay as authorized by the FDA Emergency Use Authorization (EUA). This EUA assay is intended for In-vitro Diagnostic (IVD) use with respiratory sp ecimens such as nasopharyngeal swabs collected from individuals during the ac [place] phase of infection. This assay is performed based on the instructions for use provided by [employer] and additional guidance provided by CDC and FDA. Testing is performed in the Clinical Genomics and Advanced Technolog y Laboratory within the Department of Pathology and Laboratory Medicine at [facility], certified under the Clinical Laboratory Improvement [...] required or requested by public health a [facility]ant hospital, positive specimens may be sent for additional [...] fact sheets at the following FDA website: https://www.fda.gov/medical-devices/pdvaxgtamtl-hgdjtgz-1921-cvhoh-05-nghkdbeyc- qsu-ogobzjiwlbyzql-vbzhonn-devices/ojvhj-dfocigxnopq-jlaw SARS-Cov-2 RNA Source MOLD ENGRAVER Swab [facility] LABORATORY Specimen (Source) Anatomical Collection Method Collection Time Re ceived Time Location / / Volume Laterality Nasopharyngeal Swab 02/23/2022 11:29 06 AM EDT 8:12 PM EDT Comment: Symptoms->Surveillance Resulting Agency Comment Spec In Lab Ben Schaeffer MD MICROBIOLOGY - GENERAL ORDER ROSEY Performing Organization Address City/[facility]/ZIP Code Phon e Number [address] POCT Glucose (02/23/2022 7:48 AM EDT) P athologist Signature POC Glucose 190 65 - 199 [facility] mg/dL [facility] LABORATORY Comment: Supplemental ranges: <140 mg/dL before meals <180 mg/dL all other times of the day Specimen Anatomical Collection Method Collection Time Receive d Time (Source) Location / / Volume Laterality Blood 02/23/2022 7:48 AM 7:48 EDT AM EDT Ben Schaeffer MD POINT OF CARE TEST ORDERABLE S Performing Organization Address City/[facility]/[place] [address] EKG 12 Lead (02/23/2022 6:04 AM EDT) Component Value Ref Range Test Analysis Performed Pathologis t Method Time At Signature Ventricular rate 64 BPM MUSE SYSTEM Atrial Rate 64 BPM MUSE SYSTEM P-R Interval 186 ms MUSE SYSTEM QRS Duration 116 ms MUSE SYSTEM Q-T Interval 444 ms MUSE SYSTEM QTC Calculated 458 ms MUSE SYSTEM (Bezet) Calculated P Hosmer 58 degrees MUSE SYSTEM Calculated R Hosmer -42 degrees MUSE SYSTEM Calculated T Hosmer -157 degrees MUSE SYSTEM INTERPRETATION Normal sinus rhythm MUSE SYSTEM Left axis deviation Minimal voltage criteria for LVH, may be normal variant ( Arden product ) T wave abnormality, consider lateral ischemia Abnormal ECG When compared with ECG of 20-FEB-2022 19:50, no significant change Confirmed by Liz Davalos ([email or web address]) on 02/26/2022 8:44:48 A M Specimen Anatomical Collection Method Collection Time Receive d Time (Source) Location / / Volume Laterality 02/23/2022 6:04 AM 8:44 EDT AM EDT Oliverlester Barroso TEST CAR DRIVER ECG ORDERABLES Performing Organization Address City/State/ZIP Code Phon e Number MUSE SYSTEM Differential, Automated (02/23/2022 3:52 AM EDT) athologist Signature Neutrophils % 53.9 % [facility] LABORATORY Neutr Abs (ANC) 2.62 1.70 - [facility] 6.10 [facility] x10(3)[facility] LABORATORY Lymphocytes % 31.5 % [facility] Lymphocytes Abs 1.5 0.9 - 3.2 [facility] x10(3)/[facility] LABORATORY Monocytes % 10.1 % [facility] Monocyte Abs 0.5 0.3 - 0.9 [facility] x10(3)/[facility] LABORATORY Eosinophils % 3.7 % [facility] LABORATORY Eosinophils Abs 0.2 0.0 - 0.4 [facility] x10(3)[facility] LABORATORY Basophils % 0.4 % [facility] LABORATORY Basophils Abs 0.0 0.0 - 0.1 [facility] x10(3)/[facility] LABORATORY Immature Gran % 0.40 % [facility] [...] Julianna Gran Abs 0.02 0.00 - 0.04 x10(3)/[facility] MAR Y [facility] LABORATORY Specimen Anatomical Collection Method Collection Time Receive d Time (Source) Location / / Volume Laterality Blood 02/23/2022 3:52 AM 2 4:28 EDT AM EDT Resulting Agency Comment Spec In Lab Tisha Coleman MD HEMATOLOGY ORDERABLES Performing Organization Address City/State/[place] [address] (ABNORMAL) Hemogram (02/23/2022 3:52 AM EDT) Analysis Performed At Patho logist Time Signature WBC 4.9 4.0 - 9.5 [facility](3[facility] LABORATORY RBC 5.15 4.58 - [place] 5.54 [facility] x10(6)/[facility] LABORATORY Hemoglobin 16.5 13.7 - [facility] 16.5 g/dL [facility] LABORATORY Hematocrit 48.2 40.5 - [facility] 48.5 % [facility] LABORATORY MCV 93.6 (H) 82.9 - [facility] [place] 93.1 [facility] LABORATORY MCH 32.0 27.5 - [place] 32.1 pg [facility] LABORATORY MCHC 34.2 32.0 - [place] 35.7 g/dL [facility] LABORATORY Platelets 156 145 - 357 [facility] x10(3)/[facility] LABORATORY RDWSD 43.8 36.0 - [facility] [place]IO 45.0 [facility] LABORATORY RDWCV 12.6 11.4 - [facility] [place] 13.8 % [facility] LABORATORY MPV 12.2 7.6 - 12.9 [facility] [employer] [facility] LABORATORY nRBC % Auto 0.0 % [facility] LABORATORY nRBC Abs Auto 0.000 0.000 - [facility] [place] 0.000 [facility] x10(3)/[facility] LABORATORY Specimen Anatomical Collection Method Collection Time Receive d Time (Source) Location / / Volume Laterality Blood 02/23/2022 3:52 AM 2 4:28 EDT AM EDT Resulting Agency Comment Spec In Lab Tisha Coleman MD HEMATOLOGY ORDERABLES Performing Organization Address City/State/[place] [address] Heparin (unfractionated) Level (02/23/2022 3:52 AM EDT) athologist Signature Heparin UFH 0.54 IU/mL [facility] LABORATORY Comment: Heparin (anti-Xa) levels should be [...] Organization Address City/State/ZIP Code Phon e Number [address] (ABNORMAL) BMP w/fasting Glucose (02/23/2022 3:52 AM EDT) athologist Signature Glucose 172 (H) 65 - 99 [facility] Fasting mg/dL [facility] LABORATORY Comment: ?Fasting* Glucose Interpretive C [...] 2009 BUN 11 10 - 20 mg/dL [facility] LABORATORY Creatinine 0.72 (L) 0.80 - 1.50 mg/dL [facility] LABORATORY Sodium 136 135 - 145 mmol/L [facility] LABORATORY Potassium 3.9 3.5 - 5.0 mmol/L [facility] LABORATORY Comment: Please note: ??Patients with WBC [...] Anion Gap 11 5 - 15 mmol/L [facility] LABORATORY Calcium 9.4 8.5 - 10.5 mg/dL [facility] LABORATORY Estimated GFR 95 >=60 mL/min/1.73 m?? [...] Organization Address City/State/[place] [address] (ABNORMAL) POCT Glucose (02/22/2022 8:23 PM EDT) athologist Signature POC Glucose 207 (H) 65 - 199 [facility] [place] mg/dL [facility] LABORATORY Comment: Supplemental ranges: <140 mg/dL before meals <180 mg/dL all other times of the day Specimen Anatomical Collection Method Collection Time Receive d Time (Source) Location / / Volume Laterality Blood 02/22/2022 8:23 PM 2 8:23 EDT PM EDT Elmer Fiore MD POINT OF CARE TEST ORDERABLE S Performing Organization Address City/State/[place] [address] (ABNORMAL) POCT Glucose (02/22/2022 4:18 PM EDT) athologist Signature POC Glucose 221 (H) 65 - 199 [facility] mg/dL [facility] LABORATORY Comment: Supplemental ranges: <140 mg/dL before meals <180 mg/dL all other times of the day Specimen Anatomical Collection Method Collection Time Receive d Time (Source) Location / / Volume Laterality Blood 02/22/2022 4:18 PM 2 4:18 EDT PM EDT Elmer Fiore MD POINT OF CARE TEST ORDERABLE S Performing Organization Address City/State/[place] [address] Heparin (unfractionated) Level (02/22/2022 2:13 PM EDT) athologist Signature Heparin UFH 0.34 IU/mL [facility] LABORATORY Comment: Heparin (anti-Xa) levels should be [...] / Volume Laterality Blood 02/22/2022 2:13 PM 2:18 EDT PM EDT Resulting Agency Comment Spec In Lab Tisha Coleman MD HEMATOLOGY ORDERABLES Performing Organization Address City/State/ZIP Code Phon e Number [place] [id number] (ABNORMAL) MRI Cardiac Morphology [...] who have questions please contact the health career development director that requested your imaging first. ? 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 TECHNIQUE: Axial HASTE without contrast. Short and long axis cine steady-state fr ee precession without contrast. ?? Short and long axis rest perfusion and d elayed enhancement after intravenous administration of 42 cc of Dotarem Post-processing performed on an [employer] computer workstation. Patient's calculated body surface area: [...] myocardium. Resulting Agency Comment Unexpected Finding Oliver Diane Charlesralf RENET[facility] IMG MRI ORDERABLES (ABNORMAL) POCT Glucose (02/22/2022 11:26 AM EDT) athologist Signature POC Glucose 204 (H) 65 - 199 [facility] mg/dL [facility] LABORATORY Comment: Supplemental ranges: <140 mg/dL before meals <180 mg/dL all other times of the day Specimen Anatomical Collection Method Collection Time Receive d Time (Source) Location / / Volume Laterality Blood 02/22/2022 11:26 02/22/2022 AM EDT 11:26 AM EDT Elmer Fiore MD POINT OF CARE TEST ORDERABLE S Performing Organization Address City/State/[place] [address] POCT Glucose (02/22/2022 7:33 AM EDT) athologist Signature POC Glucose 182 65 - 199 [facility] mg/dL [facility] LABORATORY Comment: Supplemental ranges: <140 mg/dL before meals <180 mg/dL all other times of the day Specimen Anatomical Collection Method Collection Time Receive d Time (Source) Location / / Volume Laterality Blood 02/22/2022 7:33 AM 7:33 EDT AM EDT Elmer Fiore MD POINT OF CARE TEST ORDERABLE S Performing Organization Address City/State/[place] [address] Heparin (unfractionated) Level (02/22/2022 6:33 AM EDT) athologist Signature Heparin UFH 0.36 IU/mL [facility] LABORATORY Comment: Heparin (anti-Xa) levels should be [...] Organization Address City/State/[place] [address] Differential, Automated (02/22/2022 6:33 AM EDT) P athologist Signature Neutrophils % 57.8 % [facility] LABORATORY Neutr Abs (ANC) 3.35 1.70 - [facility] 6.10 [facility] x10(3)[facility] LABORATORY Lymphocytes % 25.5 % [facility] LABORATORY Lymphocytes Abs 1.5 0.9 - 3.2 [facility] x10(3)[facility] LABORATORY Monocytes % 10.2 % [facility] LABORATORY Monocyte Abs 0.6 0.3 - 0.9 [facility] x10(3)[facility] LABORATORY Eosinophils % 6.0 % [facility] LABORATORY Eosinophils Abs 0.4 0.0 - 0.4 [facility] x10(3)[facility] LABORATORY Basophils % 0.3 % [facility] LABORATORY Basophils Abs 0.0 0.0 - 0.1 [facility] x10(3)[facility] LABORATORY Immature Gran % 0.20 % [...] Julianna Gran Abs 0.01 0.00 - 0.04 x10(3)/[facility] MAR Y [facility] LABORATORY Specimen Anatomical Collection Method Collection Time Receive d Time (Source) Location / / Volume Laterality Blood 02/22/2022 6:33 AM 2 6:49 EDT AM EDT Resulting Agency Comment Spec In Lab Tisha Coleman MD HEMATOLOGY ORDERABLES Performing Organization Address City/State/[place] [address] Hemogram (02/22/2022 6:33 AM EDT) P athologist Signature WBC 5.8 4.0 - 9.5 [facility] x10(3)/[facility] LABORATORY RBC 5.12 4.58 - [facility] 5.54 [facility] x10(6)/[facility] LABORATORY Hemoglobin 16.1 13.7 - [facility] 16.5 g/dL [facility] LABORATORY Hematocrit 47.2 40.5 - [facility] 48.5 % [facility] LABORATORY MCV 92.2 82.9 - [facility] 93.1 [facility] LABORATORY MCH 31.4 27.5 - [facility] 32.1 pg [facility] LABORATORY MCHC 34.1 32.0 - [facility] 35.7 g/dL [facility] Platelets 169 145 - 357 [facility] x10(3)/[facility] RDWSD 42.8 36.0 - [facility] 45.0 [facility] LABORATORY RDWCV 12.5 11.4 - [facility] 13.8 % [facility] LABORATORY MPV 12.0 7.6 - 12.9 [facility] LABORATORY nRBC % Auto 0.0 % [facility] LABORATORY nRBC Abs Auto 0.000 0.000 - [facility] 0.000 [facility] x10(3)/[facility] LABORATORY Specimen Anatomical Collection Method Collection Time Receive d Time (Source) Location / / Volume Laterality Blood 02/22/2022 6:33 AM 2 6:49 EDT AM EDT Resulting Agency Comment Spec In Lab Tisha Coleman MD HEMATOLOGY ORDERABLES Performing Organization Address City/State/[place] [address] (ABNORMAL) BMP w/fasting Glucose (02/22/2022 6:33 AM EDT) P athologist Signature Glucose 186 (H) 65 - 99 [facility] Fasting mg/dL [facility] LABORATORY Comment: ?Fasting* Glucose Interpretive C [...] 2009 BUN 13 10 - 20 mg/dL [facility] LABORATORY Creatinine 0.74 (L) 0.80 - 1.50 mg/dL [facility] LABORATORY Sodium 136 135 - 145 mmol/L [facility] LABORATORY Potassium 4.4 3.5 - 5.0 mmol/L [facility] LABORATORY Comment: Please note: ??Patients with WBC [...] Anion Gap 11 5 - 15 mmol/L [facility] LABORATORY Calcium 9.2 8.5 - 10.5 mg/dL [facility] LABORATORY Estimated GFR 94 >=60 mL/min/1.73 m?? [...] Organization Address City/State/[place] [address] (ABNORMAL) POCT Glucose (02/21/2022 8:15 PM EDT) P athologist Signature POC Glucose 236 (H) 65 - 199 [facility] mg/dL [facility] LABORATORY Comment: Supplemental ranges: <140 mg/dL before meals <180 mg/dL all other times of the day Specimen Anatomical Collection Method Collection Time Receive d Time (Source) Location / / Volume Laterality Blood 02/21/2022 8:15 PM 2 8:15 EDT PM EDT Elmer Fiore MD POINT OF CARE TEST ORDERABLE S Performing Organization Address City/State/[place] [address] CARDIAC CATHETERIZATION (02/21/2022 4:55 PM EDT) Anatomical Region Laterality Modality Other Specimen (Source) Anatomical Location Collection Method / Collectio n Time Received Time / Laterality Volume Narrative 02/21/2022 5:19 PM EDT ?[facility] ? Cardiac Cathete rization/Intervention Report ? Patient Name: Jose Carlos, Gillian ? Procedure Date: 02/21/2022 ? A #: [id number] ? Primary Physician: Jessica, Jose Luis S ? Case #: [id number] ? File Name: [id number] ? Catheterization Order Number: [id number] ? [facility] ? Final Report [place], [place] ? Patient Name: ? Gillian Branch ? ID#: ?[id number] ? : ?1950 ? Procedure Date: ? February 21, 2022 ? Case #: ? [id number] ? Room: ? 1 ? Case Physician: ? Jose Luis jordan M.D. ? Start: ?16:37 ?Fellow: ? Vincent E G acad, M.D. ?Admission: ??02/20/2022 ? Discharge: ??02/28/2022 ? Referring Physician: ??Channing Alfaro M.D. ? Procedures: ?* Coronary Angiography ?* [...] procedure was Urgent. The indication for ?the skilled labor visit is ACS less than or equal [...] cardiac surgery consult. Anatomy is ?favorable for RECORD RETRIEVAL SPECIALIST PCI. ? Complications/Events: ?The patient had no [...] note might be different from the original. [facility] Cardiac Catheterization/Intervention Re port Patient Name: Gillian Branch Procedure Date: 02/21/2022 A #: [id number] Primary Physician: Jose Luis Lopez Case #: [id number] File Name: [id number] Catheterization Order Number: [id number] [facility] Final Report [place], [place] Patient Name: Gillian Branch ID#: [id number] : 1950 Procedure Date: February 21, 2022 Case #: [id number] Room: 1 Case Physician: Aleyda Bolden tart: 16:37 Fellow: Rudy Buhs M.D. Admission : 02/20/2022 Discharge: 02/28/2022 Referring [...] was designated as ASA Class III. The [facility] clinical frailty scale is 4: Vulnerable. [...] e was Urgent. The indication for the skilled labor visit is ACS less than or equal [...] c surgery consult. Anatomy is favorable for RECORD RETRIEVAL SPECIALIST PCI. Complications/Events: The patient had no complications [...] Signature POC Glucose 149 65 - 199 [facility] mg/dL [facility] LABORATORY Comment: Supplemental ranges: <140 mg/dL before meals <180 mg/dL all other times of the day Specimen Anatomical Collection Method Collection Time Receive d Time (Source) Location / / Volume Laterality Blood 02/21/2022 4:10 PM 4:10 EDT PM EDT Elmer Fiore MD POINT OF CARE TEST ORDERABLE S Performing Organization Address City/State/[place] [address] POCT Glucose (02/21/2022 11:35 AM EDT) athologist Signature POC Glucose 178 65 - 199 [facility] mg/dL [facility] LABORATORY Comment: Supplemental ranges: <140 mg/dL before meals <180 mg/dL all other times of the day Specimen Anatomical Collection Method Collection Time Receive d Time (Source) Location / / Volume Laterality Blood 02/21/2022 11:35 02/21/2022 AM EDT 11:35 AM EDT Elmer Foire MD POINT OF CARE TEST ORDERABLE S Performing Organization Address City/State/[place] [address] Heparin (unfractionated) Level (02/21/2022 9:04 AM EDT) athologist Signature Heparin UFH 0.51 IU/mL [facility] LABORATORY Comment: Heparin (anti-Xa) levels should be [...] Organization Address City/State/[place] [address] (ABNORMAL) Troponin (02/21/2022 9:04 AM EDT) athologist Signature Troponin-T 0.01 (H) 0.00 - [facility] 0.00 ng/mL [facility] LABORATORY Comment: The 99th percentile for Troponin T is le ss than 0.01 ng/mL, any detectable cTnT concentration using this assay should be considered elevated. According to the third universal definit ion of myocardial infarction the following criteria with a clinical prese ntation consistent with acute myocardial ischemia meets the diagnosis for a myocardial infarction ([place]). Detection of a rise and/or fall of [...] additional sample may be indicated. Reference: Third [place] Definition of Myocardial Infarction. Journal of the [place] [employer] 2012;60:1581-98 Specimen Anatomical Collection Method Collection Time Receive d Time (Source) Location / / Volume Laterality Blood 02/21/2022 9:04 AM 9:23 EDT AM EDT Resulting Agency Comment Spec In Lab Tisha Coleman MD CHEMISTRY ORDERABLES Performing Organization Address City/State/ZIP Code Phon e Number [facility] [place] [address] ECHOCARDIOGRAM COMPLETE W CONTRAST (02/21/2022 8:16 AM EDT) P athologist Signature EF 17 [facility] Anatomical Region Laterality Modality Cardiac Other Specimen (Source) Anatomical Collection Method Collection Time Re ceived Time Location / / Volume Laterality 02/21/2022 7:12 AM EDT Narrative 02/21/2022 8:52 AM EDT ?[facility] ?[address] ? [place] [address] ?Voice: ?Fax: ? Echocardiogram Report Name: JOSE CARLOS GILLIAN ? Study Date: 02/21/2022 07:12 AMBP: 124/76 mmHg ? Patient Location: ICCU^442^B : 1950 ? Height: 193 cm ? Account: [id number] Age: 71 yrs ? Weight: 106 kg Gender: Male ?BSA: 2.4 m2 Ordering Physician: TISHA COLEMAN Referring Physician: CHANNING ALFARO Performed By: Grace Cabrera RDCS Reason For Study: Non-ST elevation myoca rdial infarction (NSTEMI) Interpreting Fellow: Kannan Medina. Exam Location: [facility]. Interpretation Summary 1. The left ventricle is [...] is no prior study for comparison. Procedure Complete-[id number]. Image enhancement Optiso n was used for [...] diffuse Procedure Note Bj Boyce MD - 02/21/2022Formatti jacinda of this note might be different from the original. [address] [place] [address] Voice: Fax: Echocardiogram Report Name: GILLIAN BRANCH Study Date: 02/21/2022 07:12 AMBP: 124/76 mmHg Patient Location: [facility] 42^B : 1950 Height: 193 cm Account: [id number] Age: 71 yrs Weight: 106 kg Gender: Male BSA: 2.4 m2 Ordering Physician: TISHA COLEMAN Referring Physician: CHANNING ALFARO Performed By: Grace Cabrera RDCS Reason For Study: Non-ST elevation myoca rdial infarction (NSTEMI) Interpreting Fellow: Kannan Medina. Exam Location: [facility]. Interpretation Summary 1. The left ventricle is [...] is no prior study for comparison. Procedure Complete-[id number]. Image enhancement Optiso n was used for [...] POC Glucose 201 (H) 65 - 199 [facility] mg/dL [facility] Comment: Supplemental ranges: <140 mg/dL before meals <180 mg/dL all other times of the day Specimen Anatomical Collection Method Collection Time Receive d Time (Source) Location / / Volume Laterality Blood 02/21/2022 7:31 AM 7:31 EDT AM EDT Elmer Fiore MD POINT OF CARE TEST ORDERABLE S Performing Organization Address City/State/ZIP Code Phon e Number [address] Differential, Automated (02/21/2022 2:54 AM EDT) P athologist Signature Neutrophils % 60.0 % [facility] LABORATORY Neutr Abs (ANC) 3.83 1.70 - [facility] 6.10 [facility] x10(3)/[facility] LABORATORY Lymphocytes % 25.9 % [facility]OR[facility] Lymphocytes Abs 1.6 0.9 - 3.2 [facility] x10(3)/[facility] LABORATORY Monocytes % 8.8 % [facility]OR[facility]ORY Monocyte Abs 0.6 0.3 - 0.9 [facility] x10(3)/[facility] LABORATORY Eosinophils % 4.5 % [facility]OR[facility]ORY Eosinophils Abs 0.3 0.0 - 0.4 [facility] x10(3)/[facility] LABORATORY Basophils % 0.6 % [facility]OR[facility]ORY Basophils Abs 0.0 0.0 - 0.1 [facility] x10(3)/[facility] LABORATORY Immature Gran % 0.20 % UN[facility]ERSITY [...] Julianna Gran Abs 0.01 0.00 - 0.04 x10(3)/[facility] MAR Y [facility] LABORATORY Specimen Anatomical Collection Method Collection Time Receive d Time (Source) Location / / Volume Laterality Blood 02/21/2022 2:54 AM 2 3:09 EDT AM EDT Resulting Agency Comment Spec In Lab Tisha Coleman MD HEMATOLOGY ORDERABLES Performing Organization Address City/State/ZIP Code Phon e Number [place] [phone] HOSPITAL LAB[address]ORY [address] Hemogram (02/21/2022 2:54 AM EDT) athologist Signature WBC 6.4 4.0 - 9.5 [facility](3[facility] LABORATORY RBC 5.09 4.58 - [place] 5.54 [facility] x10(6)/[facility] LABORATORY Hemoglobin 16.1 13.7 - [facility] 16.[facility] g/dL [facility] Hematocrit 47.3 40.5 - [facility] [place] 48.5 % [facility] LABORATORY MCV 92.9 82.9 - [facility] [place] 93.1 [facility] LABORATORY MCH 31.6 27.5 - [place] 32.1 pg [facility]OR[facility] MCHC 34.0 32.0 - [place] 35.7 g/dL [facility]OR[facility] Platelets 173 145 - 357 [facility] x10(3)/[facility] LABORATORY RDWSD 43.3 36.0 - [place] 45.0 [facility] LABORATORY RDWCV 12.6 11.4 - [facility] [place] 13.8 % [facility] LABORATORY MPV 12.1 7.6 - 12.9 [place] [facility] LABORATORY nRBC % Auto 0.0 % [facility] LABORATORY nRBC Abs Auto 0.000 0.000 - [place] 0.000 [facility] x10(3)/[facility] LABORATORY Specimen Anatomical Collection Method Collection Time Receive d Time (Source) Location / / Volume Laterality Blood 02/21/2022 2:54 AM 3:09 EDT AM EDT Resulting Agency Comment Spec In Lab Tisha Coleman MD HEMATOLOGY ORDERABLES Performing Organization Address City/State/[place] [address] Heparin (unfractionated) Level (02/21/2022 2:54 AM EDT) athologist Signature Heparin UFH 0.47 IU/mL [facility] LABORATORY Comment: Heparin (anti-Xa) levels should be [...] Organization Address City/State/[place] [address] (ABNORMAL) BMP w/fasting Glucose (02/21/2022 2:54 AM EDT) athologist Signature Glucose 173 (H) 65 - 99 [facility] Fasting mg/dL [facility] Comment: ?Fasting* Glucose Interpretive C [...] 2009 BUN 20 10 - 20 mg/dL [facility] LABORATORY Creatinine 0.80 0.80 - 1.50 mg/dL [facility] LABORATORY Sodium 137 135 - 145 mmol/L [facility] Potassium 4.0 3.5 - 5.0 mmol/L [facility] Comment: Please note: ??Patients with WBC [...] Anion Gap 11 5 - 15 mmol/L [facility] LABORATORY Calcium 9.1 8.5 - 10.5 mg/dL [facility] Estimated GFR 91 >=60 mL/min/1.73 m?? [...] Organization Address City/State/[place] [address] Triglyceride (02/21/2022 2:54 AM EDT) P athologist Signature Triglycerides 112 mg/dL [facility] Comment: Average Risk/Lower Risk: <150 mg/dL Borderline High Risk: 150-199 mg/dL High Risk: 200-499 mg/dL Very High Risk: >cj=726 mg/dL Specimen Anatomical Collection Method Collection Time Receive d Time (Source) Location / / Volume Laterality Blood 02/21/2022 2:54 AM 2 3:09 EDT AM EDT Resulting Agency Comment Spec In Lab Tisha Coleman MD CHEMISTRY ORDERABLES Performing Organization Address City/State/[place] [address] HDL/Cholesterol Profile (02/21/2022 2:54 AM EDT) athologist Signature Chol, Total 132 mg/dL [facility] Comment: Lower Risk: <200 mg/dL Average Risk: 200-239 mg/dL Higher Risk: >ib=368 mg/dL HDL 54 mg/dL [facility] Comment: Males: ?? Higher Risk: <40 mg/dL Females: ?? Higher Risk: <50 mg/dL Chol/HDL Ratio 2.4 ratio [facility] Chol/HDL Interpretation See Note [facility] LAB[facility] Comment: Lipid management should be guided by a p atient? s ASCVD risk, goals and preferences. ACC/AHA Guidelines recommend high intens ity statin if clinical ASCVD or LDL greater than or equal to 190 mg/dL. http://Cirqle.com/QIU-ZAF-Pbyyiteon Measure LDL if Total Cholesterol minus H DL Cholesterol is greater than 220 mg/dL. Adults aged 40-75 with LDL 70-189 mg/dL should have their 10 year ASCVD risk estimated with the ACC/AHA ASCVD risk es timator http://tools.acc.org/TFSCB-Ener-Saynitpx r/ Statin should be discussed if risk [...] Coleman MD CHEMISTRY ORDERABLES Performing Organization Address City/[facility]/ZIP Code Phon e Number [address] LDL Cholesterol, Direct (02/21/2022 2:54 AM EDT) P athologist Signature LDL Chol 67 mg/dL [facility] LABORATORY Comment: Lowest Risk: <100 mg/dL Lower Risk: 100-129 mg/dL Borderline High Risk: 130-159 mg/dL High Risk: 160-189 mg/dL Very High Risk: >ji=865 mg/dL Specimen Anatomical Collection Method Collection Time Receive d Time (Source) Location / / Volume Laterality Blood 02/21/2022 2:54 AM 2 3:09 EDT AM EDT Resulting Agency Comment Spec In Lab Tisha Coleman MD CHEMISTRY ORDERABLES Performing Organization Address City/[facility]/ZIP Code Phon e Number [address] (ABNORMAL) Hemoglobin A1c (02/21/2022 2:54 AM EDT) Analysis Performed At Patho logist Time Signature Hemoglobin A1C 7.3 (H) 4.3 - 5.6 [facility] LABORATORY Comment: Reference Range: 4.3 - [...] Mellitus, Diabetes Care 2013; 36: Suppl. 1, S67-74 Est Avg Gluc 162 mg/dL [facility] LABORATORY Comment: eAG equivalents for HbA1c [...] into estimated average glucose values. ??Diabetes Care 2008:31(8):3716-1340. Specimen Anatomical Collection Method Collection Time Receive d Time (Source) Location / / Volume Laterality Blood 02/21/2022 2:54 AM 2 3:09 EDT AM EDT Resulting Agency Comment Spec In Lab Tisha Coleman MD CHEMISTRY ORDERABLES Performing Organization Address City/State/ZIP Code Phon e Number [place] [phone] HOSPITAL LAB[address]ORY Drive (ABNORMAL) Troponin (02/21/2022 2:54 AM EDT) athologist Signature Troponin-T 0.02 (H) 0.00 - [place] 0.00 ng/mL [facility] Comment: The 99th percentile for Troponin T is le ss than 0.01 ng/mL, any detectable cTnT concentration using this assay should be considered elevated. According to the third universal definit ion of myocardial infarction the following criteria with a clinical prese ntation consistent with acute myocardial ischemia meets the diagnosis for a myocardial infarction (OK). Detection of a rise and/or fall of [...] additional sample may be indicated. Reference: Third [place] Definition of Myocardial Infarction. Journal of the [place] [employer] 2012;60:1581-98 Specimen Anatomical Collection Method Collection Time Receive d Time (Source) Location / / Volume Laterality Blood 02/21/2022 2:54 AM 2 3:09 EDT AM EDT Resulting Agency Comment Spec In Lab Tisha Coleman MD CHEMISTRY ORDERABLES Performing Organization Address City/[facility]/[place] [address] POCT Glucose (02/21/2022 12:42 AM EDT) athologist Signature POC Glucose 185 65 - 199 [facility] Comment: Supplemental ranges: <140 mg/dL before meals <180 mg/dL all other times of the day Specimen Anatomical Collection Method Collection Time Receive d Time (Source) Location / / Volume Laterality Blood 02/21/2022 12:42 02/21/2022 AM EDT 12:42 AM EDT Elmer Fiore MD POINT OF CARE TEST ORDERABLE S Performing Organization Address City/State/[place] [address] (ABNORMAL) POCT Glucose (02/20/2022 10:41 PM EDT) athologist Signature POC Glucose 344 (H) 65 - 199 [facility] mg/dL [facility] Comment: Supplemental ranges: <140 mg/dL before meals <180 mg/dL all other times of the day Specimen Anatomical Collection Method Collection Time Receive d Time (Source) Location / / Volume Laterality Blood 02/20/2022 10:41 02/20/2022 PM EDT 10:41 PM EDT Elmer Fiore MD POINT OF CARE TEST ORDERABLE S Performing Organization Address City/State/ZIP Code [place] [address] COVID-19 PCR (02/20/2022 9:38 PM EDT) [facility] Method Time Signature SARS-CoV-2 Not Detected Not Detected [place] RNA PCR [facility] LABORATORY Comment: This result should be interpreted in com bination with the clinical observations, patient history and epidem iological information. For testing of asymptomatic individuals, assay performa nce characteristics and clinical utility have not been evaluated. Testing for SARS-CoV-2 (Severe acute respiratory syndrome coronavirus 2, form erly known as 2018 novel coronavirus or 2018-nCoV) to aid in the diagnosis of CO VID-19 is performed using the Simplexa COVID-19 Direct Assay by Bufferjennyfer clark as authorized by the FDA issued Emergency Use Authorization (EUA). This assay is intended for In-vitro Diagnostic (IVD) use with nasopharyngeal swabs collected from individuals meeting the CDC criteria for testing. Th e assay is performed based on the instructions for use and additional guid ance provided by the FDA. Testing is performed in the Microbiology Laboratory within the Department of Pathology and Laboratory Medicine at [facility], certified under the Clinical Laboratory Improvement Amendmen [...] clinical management guidance information are available at [facility] CDC Coronavirus Disease 2019 (COVID-19) webpage under Information fo r Healthcare Professionals (https://www.cdc.gov/coronavirus/2019-nc ov/hcp/index.html). Additional information about this and ot her EUA tests can be found in provider and patient fact sheets at the following FDA website: https://www.fda.gov/medical-devices/owpwshoqyhz-idcedwh-3111-xkdkd-77-wunimvndd- joc-yzsyrsutxpamry-ijycmyp-devices/tkxtu-ljejshydyny-xwjd SARS-CoV-2 Source [employer] [facility] LABOR[facility]ORY Specimen (Source) Anatomical Collection Method Collection Time Re ceived Time Location / / Volume Laterality Nasopharyngeal Swab 02/20/2022 9:38 02/20 PM EDT 10:57 PM EDT Comment: Symptoms->Surveillance Resulting Agency Comment Spec In Lab Tisha Coleman MD MICROBIOLOGY - GENERAL ORDER ROSEY Performing Organization Address City/State/ZIP Code Phon e Number [place] [phone] HOSPITAL LAB[address]ORY Drive Differential, Automated (02/20/2022 8:32 PM EDT) P athologist Signature Neutrophils % 60.0 % [facility]ORATORY Neutr Abs (ANC) 3.61 1.70 - [facility] 6.10 [facility] x10(3)/[facility] LABORATORY Lymphocytes % 26.7 % [facility]ORATORY Lymphocytes Abs 1.6 0.9 - 3.2 [facility] x10(3)/[facility] LABORATORY Monocytes % 8.1 % [facility]ORATORY Monocyte Abs 0.5 0.3 - 0.9 [facility] x10(3)/[facility] LABORATORY Eosinophils % 4.3 % [facility]ORY Eosinophils Abs 0.3 0.0 - 0.4 [facility] x10(3)/[facility] LABORATORY Basophils % 0.7 % [facility] LABORATORY Basophils Abs 0.0 0.0 - 0.1 [facility] x[facility](3[facility] LABORATORY Immature Gran % 0.20 % UNIVERSITY [...] Julianna Gran Abs 0.01 0.00 - 0.04 x10(3)/[facility] MAR Y [facility] LABORATORY Specimen Anatomical Collection Method Collection Time Receive d Time (Source) Location / / Volume Laterality Blood 02/20/2022 8:32 PM 8:40 EDT PM EDT Resulting Agency Comment Spec In Lab Tisha Coleman MD HEMATOLOGY ORDERABLES Performing Organization Address City/State/[place] [address] Hemogram (02/20/2022 8:32 PM EDT) P athologist Signature WBC 6.0 4.0 - 9.5 [facility] x10(3)/[facility] LABORATORY RBC 5.12 4.58 - [facility] ROC[place] 5.54 [facility] x10(6)/[facility] LABORATORY Hemoglobin 16.4 13.7 - [facility] [place] 16.5 g/dL [facility] LABOR[facility]ORY Hematocrit 47.6 40.5 - [facility] [place] 48.5 % [facility] LABORATORY MCV 93.0 82.9 - [facility] [place] 93.1 [facility] LABORATORY MCH 32.0 27.5 - [place] 32.1 pg [facility] LABORATORY MCHC 34.5 32.0 - [facility] [place] 35.7 g/dL [facility] LABORATORY Platelets 157 145 - 357 [facility] x10(3)/[facility] LABORATORY RDWSD 43.7 36.0 - [facility] ROC[place] 45.[address] [facility] RDWCV 12.6 11.4 - [facility] [place] 13.8 % [facility] LABORATORY MPV 12.1 7.6 - 12.9 [facility] [employer] [facility] LABORATORY nRBC % Auto 0.0 % [facility] LABORATORY nRBC Abs Auto 0.000 0.000 - [place] 0.000 [facility] x10(3)/[facility] LABORATORY Specimen Anatomical Collection Method Collection Time Receive d Time (Source) Location / / Volume Laterality Blood 02/20/2022 8:32 PM 2 8:40 EDT PM EDT Resulting Agency Comment Spec In Lab Tisha Coleman MD HEMATOLOGY ORDERABLES Performing Organization Address City/[facility]/[place] [address] (ABNORMAL) pro-Brain Natriuretic Peptide (02/20/2022 8:32 PM EDT) P athologist Signature ProBNP 4,959 (H) <=124 [facility] pg/mL [facility] LABORATORY Specimen Anatomical Collection Method Collection Time Receive d Time (Source) Location / / Volume Laterality Blood 02/20/2022 8:32 PM 2 8:40 EDT PM EDT Resulting Agency Comment Spec In Lab Tisha Coleman MD CHEMISTRY ORDERABLES Performing Organization Address City/[facility] [place] [address] Heparin (unfractionated) Level (02/20/2022 8:32 PM EDT) P athologist Signature Heparin UFH 0.09 IU/mL [facility] LABORATORY Comment: Heparin (anti-Xa) levels should be [...] Coleman MD HEMATOLOGY ORDERABLES Performing Organization Address City/[facility]/[place] [address] Troponin (02/20/2022 8:32 PM EDT) P athologist Signature Troponin-T <0.01 0.00 - 0.00 [facility] ng/mL [facility] Comment: The 99th percentile for Troponin T is le ss than 0.01 ng/mL, any detectable cTnT concentration using this assay should be considered elevated. According to the third universal definit ion of myocardial infarction the following criteria with a clinical prese ntation consistent with acute myocardial ischemia meets the diagnosis for a myocardial infarction (OK). Detection of a rise and/or fall of [...] additional sample may be indicated. Reference: Third [place] Definition of Myocardial Infarction. Journal of the [place] [employer] Cardiology 2012;60:1581-98 Specimen Anatomical Collection Method Collection Time Receive d Time (Source) Location / / Volume Laterality Blood 02/20/2022 8:32 PM 2 8:40 EDT PM EDT Resulting Agency Comment Spec In Lab Tisha Coleman MD CHEMISTRY ORDERABLES Performing Organization Address City/[facility]/[place] [address] (ABNORMAL) BMP w/fasting Glucose (02/20/2022 8:32 PM EDT) athologist Signature Glucose 282 (H) 65 - 99 [facility] Fasting mg/dL [facility] Comment: ?Fasting* Glucose Interpretive C [...] 2009 BUN 20 10 - 20 mg/dL [facility] LABORATORY Creatinine 0.85 0.80 - 1.50 mg/dL [facility] LABORATORY Sodium 137 135 - 145 mmol/L [facility] LABORATORY Potassium 4.0 3.5 - 5.0 mmol/L [facility] LABOR[facility]ORY Comment: Please note: ??Patients with WBC [...] Anion Gap 12 5 - 15 mmol/L [facility] LABORATORY Calcium 9.3 8.5 - 10.5 mg/dL [facility] LABOR[facility]ORY Estimated GFR 89 >=60 mL/min/1.73 m?? [...] Coleman MD CHEMISTRY ORDERABLES Performing Organization Address City/[facility] [place] [address] EKG 12 Lead (02/20/2022 7:50 PM EDT) Component Value Ref Range Test Analysis Performed Pathologis t Method Time At Signature Ventricular rate 80 BPM MUSE SYSTEM Atrial Rate 80 BPM MUSE SYSTEM P-R Interval 170 ms MUSE SYSTEM QRS Duration 112 ms MUSE SYSTEM Q-T Interval 390 ms MUSE SYSTEM QTC Calculated 449 ms MUSE SYSTEM (Bezet) Calculated P Hosmer 52 degrees MUSE SYSTEM Calculated R Hosmer -34 degrees MUSE SYSTEM Calculated T Hosmer -91 degrees MUSE SYSTEM INTERPRETATION Normal sinus [...] / / Volume Laterality 02/20/2022 7:50 PM 7:23 EDT AM EDT Tisha Coleman MD ECG ORDERABLES Performing Organization Address City/[facility] Phon e Number MUSE SYSTEM documented in this encounter Visit Diagnoses Not on filedocumented in this encounter Admitting Diagnoses Diagnosis NSTEMI [...] 02/26/2022 7:16 PM EDT 650 mg aspirin chewable tablet Given 02/27/2022 8:22 AM EDT 325 mg ONCE PRN, Starting on Sat02/27/22 at 0822, Until Sat02/27/22 at 1550, Cath (Intra-Procedure), Routine aspirin EC tablet 81 mg Given 02/28/2022 [...] Given 02/25/2022 5:05 PM EDT 40 mg atropine (0.1 mg/mL) injection Given 02/27/2022 1:00 PM EDT 1 mg ONCE PRN, Starting on Sat02/27/22 at 1300, Until Sat02/27/22 at 1550, Cath (Intra-Procedure), Routine clopidogreL (Plavix) tablet 75 mg Given 02/28/2022 8:52 AM EDT 75 mg 75 mg, Oral, DAILY, First dose on Sat02/23/22 at 1345, Until Discontinued, Routine Given 02/26/2022 8:18 AM EDT 75 mg Given 02/25/2022 8:50 AM EDT 75 mg clopidogreL (Plavix) tablet Given 02/27/2022 11:19 AM EDT 600 mg ONCE PRN, Starting on Sat02/27/22 at 1119, Until Sat02/27/22 at 1550, Intra-Operative (Intra-Procedure), Routine dextrose 10% infusion 250 mL, at 1,000 [...] of the active insulin. eptifibatide (Integrilin) (0.75 New Bag 02/27/2022 10:14 AM 2 mcg/kg/min 16.2 mL/hr mg/mL) IV infusion EDT CONTINUOUS PRN, Starting on Sat02/27/22 at 1014, Until Sat02/27/22 at 1550, Cath (Intra-Procedure) eptifibatide (Integrilin) (2 mg/mL) IV Given 02/27/2022 10:2 5 AM EDT 18,216 mcg injection ONCE PRN, Starting on Sat02/27/22 at 1011, Until Sat02/27/22 at 1550, Cath (Intra-Procedure), Routine Given 02/27/2022 10:11 AM EDT 18,216 mcg escitalopram (Lexapro) tablet 10 mg Given 02/28/2022 8:51 AM EDT 10 mg 10 mg, Oral, DAILY, First dose on Sat02/21/22 at 0900, Until Discontinued, Routine Given 02/26/2022 8:19 AM EDT 10 mg Given 02/25/2022 8:50 AM EDT 10 mg fentaNYL (pf) (50 mcg/mL) multi-dose Given 02/27/2022 11:22 AM E DT 25 mcg injection ONCE PRN, Starting on Sat02/27/22 at 0822, Until Sat02/27/22 at 1550, Cath (Intra-Procedure), Routine Given 02/27/2022 10:57 AM EDT 25 mcg Given 02/27/2022 10:10 AM EDT 25 mcg folic acid (Folvite) tablet 1,000 mcg Given [...] Given 02/27/2022 9:35 PM EDT 300 mg glucagon (Glucagen) (1 mg/mL) [...] 37.5 grams.), Routine heparin (porcine) (1,000 units/mL) Given 02/27/2022 11:50 AM EDT 3,000 Units injection ONCE PRN, Starting on Sat02/27/22 at 0849, Until Sat02/27/22 at 1550, Cath (Intra-Procedure), Routine Given 02/27/2022 10:26 AM EDT 3,000 Units Given 02/27/2022 9:05 AM EDT 3,000 Units heparin (porcine) (5,000 units/1 mL) Given 02/28/2022 8:59 AM ED T 5,000 Units subcutaneous injection 5,000 Units 5,000 Units, Subcutaneous, EVERY 12 HOURS SCHEDULED (2 times per day), First dose on Sat02/24/22 at 2100, Until Discontinued, Routine Given 02/27/2022 9:35 PM EDT 5,000 Units Given 02/26/2022 8:38 PM EDT 5,000 Units insulin glargine-ygfn (Semglee) (100 Given 02/27/2022 9:34 [...] 8 Units insulin lispro (HumaLOG;Admelog) (100 Given 02/28/2022 [...] Given 02/27/2022 9:34 PM EDT 2 Units iohexoL (Omnipaque) (350 mg/mL) solution Given 02/27/2022 1:15 PM EDT 390 mLs ONCE PRN, Starting on Sat02/27/22 at 1315, Until Sat02/27/22 at 1550, Cath (Intra-Procedure), Routine lidocaine (Lidoderm) 5% Patch Applied 02/26/2022 8:37 [...] EDT 50 mg metoprolol tartrate (Lopressor) tablet 2 5 mg Given 02/28/2022 11:47 AM EDT 25 mg 25 mg, Oral, EVERY 6 HOURS SCHEDULED, First dose (after last modification) on Sat02/22/22 at 1200, Until Discontinued, Hold for SBP <90 or HR <60, Routine Given 02/28/2022 6:37 AM EDT 25 mg Given 02/28/2022 12:17 AM EDT 25 mg midazolam (pf) (Versed) (1 mg/mL) multi-dose Given 11:22 AM EDT 1 mg injection ONCE PRN, Starting on Sat02/27/22 at 0823, Until Sat02/27/22 at 1550, Cath (Intra-Procedure), Routine Given 02/27/2022 10:58 AM EDT 1 mg Given 02/27/2022 10:10 AM EDT 1 mg multivitamin with minerals (Thera M) Given [...] Given 02/25/2022 8:51 AM EDT 40 mg polyethylene glycoL (Miralax) packet 17 g 17 g, Oral, DAILY PRN, Starting on Sat at 1700, Until Sat02/28/22 at 1723, Constipation, Routine protamine (10 mg/mL) injection Given 02/27/2022 12:51 PM EDT 1 mg ONCE PRN, Starting on Sat02/27/22 at 1251, Until Sat02/27/22 at 1550, Cath (Intra-Procedure), Routine senna-docusate (Pericolace) 8.6-50 mg per Given [...] Given 02/26/2022 9:58 PM EDT 5 mLs spironolactone (Aldactone) tablet 12.5 m g Given [...] Given 02/25/2022 8:50 AM EDT 100 mg documented in this encounter Active and [...] Prov ider: Rebeca Olivares RN) 0810 ([facility] Hold - Provider: Admin Adt - R andrea: Transfer to a Procedural area)1550 ([facility] Unhold - Provider: Admin Adt)1627 (Given - Provider: Effie Julio RN) 40 mg, Oral, EVERY EVENING, First dose o n Sat02/20/22 at 2230, Until Discontinued, Routine clopidogreL (Plavix) tablet 75 mg 0818 (Given - Provid er: Rebeca Olivares RN) 0810 ([facility] Hold - Provider: Admin Adt - R andrea: Transfer to a Procedural area)0900 (Automatically Held - Provider: Admin Adt)1550 ([facility] Unhold - Provider: Admin Adt) [...] Prov ider: Rebeca Olivares RN) 0810 ([facility] Hold - Provider: Admin Adt - R andrea: Transfer to a Procedural area)0900 (Automatically Held - Provider: Admin Adt)1550 ([facility] Unhold - Provider: Admin Adt) 0851 (Given - Provider: Jamaica Lockwood RN) 10 mg, Oral, DAILY, First dose on 05/07 at 0900, Until Discontinued, Routine folic acid (Folvite) tablet 1,000 mcg 0818 (Given - Pr ovider: Rebeca Olivares RN) 0810 ([facility] Hold - Provider: Admin Adt - R andrea: Transfer to a Procedural area)0900 (Automatically Held - Provider: Admin Adt)1550 ([facility] Unhold - Provider: Admin Adt) 0852 (Given - Provider: Jamaica Lockwood RN) 1,000 mcg, Oral, DAILY, First dose on 02/21/22 at 0900, Until Discontinued, Routine furosemide (Lasix) tablet 20 mg 0818 (Given - Provider: Unique Olivares RN) 0810 ([facility] Hold - Provider: Admin Adt - Reason: Transfer to a Procedural area)0900 (Automatically Held - Provider: Admin Adt)1550 ([facility] Unhold - Provider: Admin Adt) 0852 (Given - Provider: Jamaica Lockwood RN) 20 mg, Oral, DAILY, First dose on 05/07 at 0930, Until Discontinued, Routine gabapentin (Neurontin) capsule 300 mg 0817 (Given - Pr ovider: Rebeca Olivares RN)1523 (Given - Provider: Rebeca Olivares RN)203 (Given - Provider: Bria Eaton RN) 0810 ([facility] Hold - Provider: Admin Adt - R andrea: Transfer to a Procedural area)0900 (Automatically Held - Provider: Admin Adt)1500 (Automatically Held - Provider: Admin Adt)1550 ([facility] Unhold - Provider: Admin Adt) [...] Units 0816 (Given - Provider: Rebeca Olivares RN)203 (Given - Provider: Bria Eaton, LONA) 0810 ([facility] Hold - Provider: Admin Adt - R andrea: Transfer to a Procedural area)0900 (Automatically Held - Provider: Admin Adt)1550 ([facility] Unhold - Provider: Admin Adt)2135 (Given - Provider: Bria Eaton, LONA) 0859 (Given - Provider: Jamaica Lockwood RN) 5,000 Units, Subcutaneous, EVERY 12 HOUR S SCHEDULED (2 times per day), First dose on Sat02/24/22 at 2100, Until Discontinued, Routine insulin glargine-ygfn (Semglee) (100 uni t/mL) subcutaneous injection vial 10 Units 2158 (Given - Provider: Bria Eaton RN) 0810 ([facility] Hold - Provider: Admin Adt - Reason: Transfer to a Procedural area)1550 ([facility] Unhold - Provider: Admin Adt)2134 (Given - Provider: Bria Eaton RN) 10 Units, Subcutaneous, NIGHTLY, First d ose [...] Julio RN - Reason: 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 - 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)0810 ([facility] Hold - Provider: Admin Adt - Reason: Transfer to a Procedural area)1200 (Automatically Held - Provider: Admin Adt)1550 ([facility] Unhold - Provider: Admin Adt) 0857 (Given - Provider: Jamaica Lockwood, LONA)1239 (Given - Provider: Jamaica Lockwood RN) 0-8 [...] Comment: 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)0810 ([facility] Hold - Provider: Admin Adt - Reason: Transfer to a Procedural area)1130 (Automatically Held - Provider: Admin Adt) 1-4 Units, Subcutaneous, 4 TIMES DAILY B EFORE MEALS & NIGHTLY, First dose (after last modification) on Sat02/23/22 at 1130, Until Discontinued, Moderate BG 140 - 160 Give 2 units BG 161 - 200 Give 4 2158 (Given - Provider: Bria Eaton RN) 1550 ([facility] Unhold - Provider: Admin Adt) units BG [...] Procedural area)1550 ([facility] Unhold - Provider: Admin Adt)2100 (Not Given - Provider: Bria Eaton, LONA - Reason: Patient/family refused) 1 patch, Transdermal, [...] Adt) 0900 (Patch Removed - Provider: Jamaica Lockwood, RN) Transdermal, EVERY 24 HOURS, First dose on Sat02/27/22 at 0900, Until Discontinued, Remove lidocaine 5% patch losartan (Cozaar) tablet 50 mg 0819 (Given - Provider: Lou Olivares, LONA) 0810 ([facility] Hold - Provider: Admin Adt - Reason: Transfer to a Procedural area)0900 (Automatically Held - Provider: Admin Adt)1550 ([facility] Unhold - Provider: Admin Adt) 0852 (Given - Provider: Jamaica Lockwood, LONA) 50 mg, Oral, DAILY, First dose on 05/07 at 0900, Until Discontinued, Routine metoprolol tartrate (Lopressor) tablet 25 mg 0535 (Giv en - Provider: Carmina Castillo RN)1203 (Given - Provider: Rebeca Olivares RN)1716 (Given - Provider: Rebeca Olivares RN)2356 (Given - Provider: Bria Eaton RN) 0638 (Given - Provider: Bria Eaton RN)0810 ([facility] Hold - Provider: Admin Adt - Reason: Transfer to a Procedural area)1200 (Automatically Held - Provider: Admin Adt)1550 ([facility] Unhold - Provider: Admin Adt)1736 (Given - Provider: Effie Julio RN) 0017 (Given - Provider: Bria Eaton, LONA)0637 (Given - Provider: Bria Eaton, LONA)1147 (Given - Provider: Jamaica Lockwood, LONA) 25 mg, Oral, EVERY 6 HOURS SCHEDULED, Fi rst dose (after last modification) on Sat02/22/22 at 1200, Until Discontinued, Hold for SBP <90 or HR <60, Routine multivitamin with minerals (Thera M) tablet 1 tablet 0 819 (Given - Provider: Rebeca Olivares RN) 0810 ([facility] Hold - Provider: Admin Adt - R andrea: Transfer to a Procedural area)0900 (Automatically Held - Provider: Admin Adt)1550 ([facility] Unhold - Provider: Admin Adt) 1146 (Given - Provider: Jamaica Lockwood, LONA) 1 tablet, Oral, DAILY, First dose on Sat02/21/22 at 0900, Until Discontinued, Routine pantoprazole EC (Protonix) tablet 40 mg 0818 (Given - Provider: Rebeca Olivares, LONA) 0810 ([facility] Hold - Provider: Admin Adt - R andrea: Transfer to a Procedural area)0900 (Automatically Held - Provider: Admin Adt)1550 ([facility] Unhold - Provider: Admin Adt) 0852 (Given - Provider: Jamaica Lockwood, RN) 40 mg, Oral, DAILY, First dose (after la st modification) on Sat02/21/22 at 0900, Until Discontinued, DO NOT CRUSH OR OPEN senna-docusate (Pericolace) 8.6-50 mg per tablet 2 tab let 1914 (Given - Provider: Rebeca Olivares RN) 0810 ([facility] Hold - Provider: Admin Adt - R andrea: Transfer to a Procedural area)0900 (Automatically Held - Provider: Admin Adt)1550 ([facility] Unhold - Provider: Admin Adt) 0900 (Not Given - Provider: Jamaica Lockwood, LONA - Reason: Patient/family refused) 2 tablet, Oral, DAILY, First dose on Sat02/26/22 at 1800, Until Discontinued, Routine sodium chloride 0.9 % (flush) (BD PosiFlush Normal Jose ine 0.9) flush 5 mL 0823 (Given - Provider: Rebeca Olivares RN)2158 (Given - Provider: Bria Eaton, LONA) 0810 ([facility] Hold - Provider: Admin Adt - R andrea: Transfer to a Procedural area)0900 (Automatically Held - Provider: Admin Adt)1550 ([facility] Unhold - Provider: Admin Adt)2136 (Given - Provider: Bria Eaton, LONA) 0841 (Given - Provider: Jamaica Lockwood, RN) 5 mL, Intravenous, 2 TIMES DAILY, First dose on Sat02/20/22 at 2230, Until Discontinued, Routine spironolactone (Aldactone) tablet 12.5 mg 0817 (Given - Provider: Rebeca Olivares RN) 0810 ([facility] Hold - Provider: Admin Adt - R andrea: Transfer to a Procedural area)0900 (Automatically Held - Provider: Admin Adt)1550 ([facility] Unhold - Provider: Admin Adt) 0851 (Given - Provider: Jamaica Lockwood RN) 12.5 mg, Oral, DAILY, First dose on Sat02/22/22 at 0900, Until Discontinued, DO NOT SPLIT, CRUSH OR OPEN, Routine thiamine (Vitamin B1) tablet 100 mg 0817 (Given - Prov ider: Rebeca Olivares, LONA) 0810 ([facility] Hold - Provider: Admin Adt - R andrea: Transfer to a Procedural area)0900 (Automatically Held - Provider: Admin Adt)1550 ([facility] Unhold - Provider: Admin Adt) 0852 (Given - Provider: Jamaica Lockwood RN) 100 mg, Oral, DAILY, First dose on Sat at 0900, Until Discontinued, Routine Continuous Medication Order 02/26/2022 02/27/2022 02/28/2022 sodium chloride 0.9% infusion () 1510 (New Bag - Provider: Chantell Eaton RN) 100 mL/hr, Intravenous, CONTINUOUS, Star ting on [...] Provider: Admin Adt)1707 (Given - Provider: Effie Julio RN)2135 (Given - Provider: Bria Eaton RN) 650 mg, Oral, EVERY 4 HOURS PRN, [...] Hadley Morales RN)1025 (Given - Provider: Hadley Morales RN) ONCE PRN, Starting on Sat02/27/22 at 101 1, Until Sat02/27/22 at 1550, Cath (Intra-Procedure), Routine fentaNYL (pf) (50 mcg/mL) multi-dose injection (CANCELED) 0822 (Given - Provider: Hadley Morales, LONA)0835 (Given - Provider: Hadley Morales RN)0913 (Given - Provider: Hadley Morales RN)1010 (Given - Provider: Hadley Morales RN)1057 (Given - Provider: Hadley Morales RN) ONCE [...] area)1550 ([facility] Unhold - Provider: Admin Adt) 15-30 g of glucose, Buccal, EVERY 30 MIN PRN, Starting on Sat02/20/22 at 2137, Until Sat02/28/22 at 1723, Low blood sugar, For BG 50-70 mg/dL: Oral treatment preferred: If able to drink, give 120 mL J uice or Regular (not diet) soda OR If MOLD ENGRAVER O, give 15 gram glucose 40% oral [...] Hadley Morales RN)0905 (Given - Provider: Hadley Morales, LONA)1026 (Given - Provider: Hadley Morlaes RN)1150 (Given - Provider: Hadley Morales RN) [...] 1 mg 2254 (Given - Provider: Bria Eaton RN) 0810 ([facility] Hold - Provider: Admin Adt - Reason: Transfer to a Procedural area)1550 ([facility] Unhold - Provider: Admin Adt)2135 (Given - Provider: Bria Eaton RN) 1 mg, Oral, EVERY 4 HOURS PRN, Starting on Sat02/20/22 at 2221, Until Sat02/28/22 at 1723, Anxiety, Withdrawal, Routine midazolam (pf) (Versed) (1 mg/mL) multi-dose injection (CANC ELED) 0823 (Given - Provider: Hadley Morales RN)0835 (Given - Provider: Hadley Morales RN)0913 (Given - Provider: Hadley Morales, LONA)1010 (Given - Provider: Hadley Morales, LONA)1058 (Given - Provider: Hadley Morales RN) ONCE PRN, Starting on Sat02/27/22 at 082 3, Until Sat02/27/22 at 1550, Cath (Intra-Procedure), Routine 1122 (Given - Provider: Hadley Morales RN) nitroGLYcerin (Nitrostat) disintegrating tablet 0.4 mg 0810 ([facility] Hold - Provider: Admin Adt - Reason: Transfer to a Procedural area)1550 ([facility] Unhold - Provider: Admin Adt) 0.4 mg, [...] area)1550 ([facility] Unhold - Provider: Admin Adt) 17 g, [...] area)1550 ([facility] Unhold - Provider: Admin Adt) 5-20 mL, [...] 30 MIN PRN, Starting on Sat02/20/22 at 213, Until Sat02/28/22 at 1723
For BG 50-70 [...] episode. & nbsp; For persistent hypoglycemia, con aircraft electrical systems specialist longer-acting treatment for the duration of the active insulin.
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
--- OUTSIDE RECORDS SUMMARY | 2022-08-22 10:02 | XMS_ITS | Encounter Summary ---
:1950 Author Organization [facility] [place] [address] Care Team Providers Name Role Phone Navin Souza MD Primary Care Provider Encounter Details Date Type Department Care Team Description 02/19/2022 [place] [id number] Social History Tobacco Use Types Packs/Day Years Used Date Smoking Tobacco: Never Assessed Sex Assigned at Date Recorded Not on file documented as of this encounter Plan of Treatment Not on filedocumented as of this encounter Procedures Procedure Name Priority Date/Time Associated Diagnosis Comme nts ECG SCAN Routine 02/19/2022 Results for thi s procedure are in the resu lts section. ECG SCAN Routine 02/19/2022 Results for thi s procedure are in the resu lts section. documented in this encounter Results Scan Doc: ECG (02/19/2022) Narrative This result has an attachment that is no t available. Historical Provider MEDIA MGR SCAN EXT ORDR/RSLT Scan Doc: ECG (02/19/2022) Narrative This result has an attachment that is no t available. 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
--- OUTSIDE RECORDS SUMMARY | 2022-08-22 10:02 | XMS_ITS | Encounter Summary ---
:1950 [place] [address] Care Team Providers Name Role Phone Navin Souza MD Primary Care Provider Reason for Visit Auth/Cert Specialty Diagnoses / Procedures Referred By Contact Refer red To Contact Diagnoses NSTEMI (non-ST elevated myocardial infarction) nstemi Elmer Fiore MD [facility] [place] [address] Referral ID Status Reason Start Date Expiration Date Visits Requ ested Visits Authorized [id number] 1 1 Encounter Details Date Type Department Care Team Description 02/21/2022 Surgery Lockmaker Jose Luis Santiago , CARDIAC CATHETERIZATION [facility] [place] [place] [address] CARDIOLOGY [phone] [place] [id number] (Wo rk) Social History Tobacco Use Types Packs/Day Years Used Date Smoking Tobacco: Former Cigarettes Quit : 03/17/1986 Smokeless Tobacco: Never Alcohol Use Standard Drinks/Week Comments Yes 0 (1 standard drink = 0.6 oz pure alcoho l) Sex Assigned at Date Recorded Not on file documented as of this encounter Last Filed Vital Signs Vital Sign Reading Time Taken Comments Blood Pressure 113/79 02/21/2022 8:49 AM EDT Pulse 71 02/21/2022 4:09 AM EDT Temperature 36.6 ??C (97.9 ??F) 02/21/2022 8:49 AM EDT Respiratory Rate 20 02/21/2022 8:49 AM EDT Oxygen Saturation 94% 02/21/2022 8:49 AM EDT Inhaled Oxygen Concentration - - Weight 106.1 kg (233 lb 14.5 oz) 02/21/2022 4:09 AM EDT Height 193 cm (6' 4) 02/20/2022 7:58 PM EDT Body Mass Index 27.16 02/20/2022 7:58 PM EDT documented in this encounter Discharge Summaries Ramirez Najera PA - 02/28/2022 2:58 PM EDT Images from the original note were not included. Discharge Summary Patient Name: Gillian Branch Patient Age: 71 y.o. Language: Barbadian Race: White Ethnicity: Not nor Admit date: [...] and apical WMA's ?? S/p LHC with FLIGHT LINE SERVICE ATTENDANT of the proximal LAD found ?? Viability study was positive except for the apex; LAD FLIGHT LINE SERVICE ATTENDANT intervention was done on 02/27/2022 ?? 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 The final outcome was defined as [...] may require modification of this regimen. Consult [facility] Interventional Cardiology for questions. This patient has [...] against any medical treatment. Consult http://tools.acc.org/DAPTriskapp/#!/content/calculator/ or [facility] Interventional Cardiology for questions Conclusions: * Significant [...] Dual Antiplatelet (DAPT) Recommendations above * Successful FLIGHT LINE SERVICE ATTENDANT PCI of the LAD with preservation of all side branches. Cardiac catheterization 02/21/2022 Conclusions: ?* Two vessel coronary artery disease (LAD and LCX) ?* Consider viability testing and cardiac surgery consult. 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 TTE 02/21/22 Interpretation Summary 1. The [...] DM, HTN, GERD, anxiety who presented to [facility] with symptomshe thought was a panic [...] DM, HTN, GERD and anxiety?who presented to [facility] with symptoms he thought was an anxiety attack. He woke up around 3 AM on 02/19/22 with chest tightness and SOB. Ruled in for NSTEMI. Bedside echo at the OSH showed EF of ~35% with apical WMA's. EKG showed sinus rhythm with poor R wave progression and intraventricular conduction delay. [facility] for further evaluation and management. Formal TTE at [facility] showed EF of 17% and apical WMA's. Troponin at [facility] <0.01 -> 0.02. Decision was made to pursue ischemic evaluation via [facility] on02/21/2022 which showed FLIGHT LINE SERVICE ATTENDANT of his proximal LAD. Access was via right radial artery. A cardiac MRI was done to assess for viability, based on these results the plan will be to proceed with planned PCI ofthe FLIGHT LINE SERVICE ATTENDANT of the LAD. The patient returned to the director of cardiac cath lab on 02/27/22 at which time the FLIGHT LINE SERVICE ATTENDANT of the LADwas stented successfully with preservation [...] attack. A heart attack (myocardial infarction, or OR) occurs when one or more of the [...] of one year. After this time, your artificial breast fabricator will determine if you need to continue [...] away. Stay on the phone. The emergency reciprocating drill operator will tell you what to do. [...] of 8A-5PM please call the Cardiology Clinic [phone] to speak with a nurse. All other hours please call the Hospital Physician Asst [phone] and ask to speak to the manager valuation on-call. Return to work: One week Driving: No driving for 48 hours after cath Follow up Appointments: Doctor Where Phone # Date Time PCP Navin Souza MD [address] [place] [phone] 03/05/2022 11:[address] Schaeffer and fellow Dr. Lou [facility] Cardiology [facility] Clinic [phone] 04/10/2022 Echo at 8:00 AM Appointment at 10:00 AM Home oxygen therapy: N/A Arrangements for VNA/home care: N/A General Instructions Future Appointments and Orders Future Appointments and Orders Future Appointments Provider Department Dept Phone 04/10/2022 8:00 AM ECHO REGULAR Non-Invasive Cardiology Lab [facility] Arrive at: Online User Experience Strategist Area [phone] 04/10/2022 10:00 AM Mike Lou MD; Ben Schaeffer MD Cardiology at [facility] Arrive at: Online User Experience Strategist Area [phone] Future Orders Complete By Expires Echocardiogram Transthoracic [74584 CPT(R)] 02/28/2022 08/30/2022 Process Instructions: Scheduling Instructions: Comments: Questions: Where will study be performed?: [facility] Is a Bubble Study requested?: Does the patient have Congenital Heart Disease?: Does patient require sedation?: GA rationale: Referral to Cardiac Rehab [WII523 Custom] As directed Process Instructions: If no progress note charted, please enter Clinical details in comments. Scheduling Instructions: Questions: My question or request is: NSTEMI. Cardiac rehab at [facility]. Discharge References/Attachments None Ramirez Najera PA-C 02/28/2022 documented in this encounter Discharge Instructions Discharge InstructionsRamirez Najera PA - 02/22/2022 2:21 PM EDT Patient InstructionsRamirez Najera PA - 02/27/2022 3:26 PM EDT Heart attack You were hospitalized for treatment of your heart attack. A heart attack (myocardial infarction, or OR) occurs when one or more of the [...] of one year. After this time, your artificial breast fabricator will determine if you need to continue [...] away. Stay on the phone. The emergency reciprocating drill operator will tell you what to do. [...] of 8A-5PM please call the Cardiology Clinic [phone] to speak with a nurse. All other hours please call the Hospital Physician Asst [phone] and ask to speak to the manager valuation on-call. Return to work: One week Driving: No driving for 48 hours after cath Follow up Appointments: Doctor Where Phone # Date Time PCP Navin Souza MD [address] [place] [phone] 03/05/2022 11:[address] Schaeffer and fellow Dr. Lou [facility] Cardiology 4A Clinic [phone] 04/10/2022 Echo at 8:00 AM Appointment at [...] Progress Note Patient Name: Gillian Branch Service: TIN WORKER / PA Responsible Attending: Ben Schaeffer MD Reason for continued hospitalization: NSTEMI New HFrEF - LVEF ~17 % S/p repeat LHC with PCI of FLIGHT LINE SERVICE ATTENDANT of LAD 02/27 Active Problems: Active Hospital Problems Diagnosis ??? NSTEMI (non-ST elevated myocardial infarction) ??? Acute systolic congestive heart failure Resolved Hospital Problems No resolved problems to display. Interval History: Patient did well overnight with no chest pain or shortness of breath. Underwent repeat LHC yestrerday w/ PCI of FLIGHT LINE SERVICE ATTENDANT. Discharge today. Review of Systems: Review of [...] Dual Antiplatelet (DAPT) Recommendations above * Successful FLIGHT LINE SERVICE ATTENDANT PCI of the LAD with preservation of [...] cardiac surgery consult. Anatomy is favorable for FLIGHT LINE SERVICE ATTENDANT PCI. Cardiac MRI: 02/22/22 IMPRESSION Severe dilatation [...] HTN, GERD and anxiety [facility] [...] concerning for ischemic cardiomyopathy. Cardiac catheterization shows FLIGHT LINE SERVICE ATTENDANT of proximal LAD with collaterals from the [...] repeat catheterization on02/27 at which time successful FLIGHT LINE SERVICE ATTENDANT PCI of LAD was performed, along with angioplasty of oD1, oD2, and o Ramus lesions. Thrombectomy was also performed on the LCx and Integrilin was utilized. Patient is doing well and is medically ready for discharge. . Plan: # NSTEMI # ASCVD TTE w/ LVEF 17% S/p ASA 325 mg and Plavix 300 mg loads S/p C with successful PCI FLIGHT LINE SERVICE ATTENDANT of LAD and thrombectomy Continue daily aspirin [...] MD Ramirez Mistry PA-C 02/28/2022 Pager #: [phone] Cardiovascular Attending Note I shared this visit [...] Progress Note Patient Name: Gillian Branch Service: TIN WORKER / PA Responsible Attending: Ben Schaeffer MD Reason for continued hospitalization: NSTEMI New HFrEF - LVEF ~17 % S/p repeat LHC with PCI of FLIGHT LINE SERVICE ATTENDANT of LAD 02/27 Active Problems: Active Hospital Problems Diagnosis ??? NSTEMI (non-ST elevated myocardial infarction) ??? Acute systolic congestive heart failure Resolved Hospital Problems No resolved problems to display. Interval History: Patient did well overnight with no chest pain or shortness of breath. Underwent repeat LHC today for PCI of his FLIGHT LINE SERVICE ATTENDANT. On bed rest until 5:30 PM. Review [...] cardiac surgery consult. Anatomy is favorable for FLIGHT LINE SERVICE ATTENDANT PCI. Cardiac MRI: 02/22/22 IMPRESSION Severe dilatation [...] HTN, GERD and anxiety [facility] [...] concerning for ischemic cardiomyopathy. Cardiac catheterization shows FLIGHT LINE SERVICE ATTENDANT of proximal LAD with collaterals from the RCA. Cardiac MRI shows some viability in the basilar to mid anterior, anterolateral and anteroseptal bowers. Unlikely to be viable distal anterior wall and anterior aspect of the apex. After discussion, plan for PCI of the FLIGHT LINE SERVICE ATTENDANT of the LADplus or minus IABP support on Tuesday 02/27. . After further review of the cardiac MRI, the LV thrombus appears pinpoint and IV heparin was stopped. Plan: # NSTEMI # ASCVD TTE w/ LVEF 17% S/p ASA 325 mg and Plavix 300 mg loads Continue daily aspirin, restarted plavix dosing Continue metoprolol 25 mg q6 hrs Continue atorvastatin 40 mg nighty FLIGHT LINE SERVICE ATTENDANT of LAD found; PCI to FLIGHT LINE SERVICE ATTENDANT done 02/27 # New HFrEF # Ischemic [...] MD Ramirez Mistry PA-C 02/27/2022 Pager #: [phone] Cardiovascular Attending Note I shared this visit [...] Progress Note Patient Name: Gillian Branch Service: TIN WORKER / PA Responsible Attending: Ben Schaeffer MD Reason for continued hospitalization: NSTEMI New HFrEF - LVEF ~17 % FLIGHT LINE SERVICE ATTENDANT of LAD seen on cardiac cath, planned PCI for Monday 02/26 Active Problems: Active Hospital Problems Diagnosis ??? NSTEMI (non-ST elevated myocardial infarction) ??? Acute systolic congestive heart failure Resolved Hospital Problems No resolved problems to display. Interval History: Patient did well overnight with no chest pain or shortness of breath. Aware of theplan for PCI of his FLIGHT LINE SERVICE ATTENDANT today. Review of Systems: Review of Systems [...] cardiac surgery consult. Anatomy is favorable for FLIGHT LINE SERVICE ATTENDANT PCI. Cardiac MRI: 02/22/22 IMPRESSION Severe dilatation [...] HTN, GERD and anxiety [facility] [...] concerning for ischemic cardiomyopathy. Cardiac catheterization shows FLIGHT LINE SERVICE ATTENDANT of proximal LAD with collaterals from the RCA. Cardiac MRI shows some viability in the basilar to mid anterior, anterolateral and anteroseptal bowers. Unlikely to be viable distal anterior wall and anterior aspect of the apex. An unexpected finding on cMR of a 14 mm laminar thrombus in the anterior distal aspect of the left ventricle. After discussion, plan for PCI of the FLIGHT LINE SERVICE ATTENDANT of the LAD plus or minus IABP [...] q6 hrs Continue atorvastatin 40 mg nighty FLIGHT LINE SERVICE ATTENDANT of LAD found; NPO for staged PCI [...] MD Ramirez Mistry PA-C 02/26/2022 Pager #: [phone] Cardiovascular Attending Note I shared this visit [...] Progress Note Patient Name: Gillian Branch Service: TIN WORKER / PA Responsible Attending: Ben Schaeffer MD Reason for continued hospitalization: NSTEMI New HFrEF - LVEF ~17 % FLIGHT LINE SERVICE ATTENDANT of LAD seen on cardiac cath, planned PCI for Saturday after review of the cardiac MRI Active Problems: Active Hospital Problems Diagnosis ??? NSTEMI (non-ST elevated myocardial infarction) ??? Acute systolic congestive heart failure Resolved Hospital Problems No resolved problems to display. Interval History: Patient did well overnight with no chest pain or shortness of breath. Aware of theplan for PCI of his FLIGHT LINE SERVICE ATTENDANT LAD on Saturday. Dr. Schaeffer's examination of [...] cardiac surgery consult. Anatomy is favorable for FLIGHT LINE SERVICE ATTENDANT PCI. Cardiac MRI: 02/22/22 IMPRESSION Severe dilatation [...] HTN, GERD and anxiety [facility] [...] concerning for ischemic cardiomyopathy. Cardiac catheterization shows FLIGHT LINE SERVICE ATTENDANT of proximal LAD with collaterals from the RCA. Cardiac MRI shows some viability in the basilar to mid anterior, anterolateral and anteroseptal bowers. Unlikely to be viable distal anterior wall and anterior aspect of the apex. After discussion, plan for PCI of the FLIGHT LINE SERVICE ATTENDANT of the LADplus or minus IABP support on Saturday. After further review of the cardiac MRI we will plan to stop IV heparin. Plan: # NSTEMI TTE w/ LVEF 17% S/p ASA 325 mg and Plavix 300 mg loads Continue daily aspirin, restarted plavix dosing Continue metoprolol 25 mg q6 hrs Continue atorvastatin 40 mg nighty FLIGHT LINE SERVICE ATTENDANT of LAD found, planned PCI on Saturday [...] Discussed with MD Oliver Mistry APRN Pager [phone] 02/25/2022 Ben Schaeffer MD - 02/24/2022 11:02 AM EDT Images from the original note were not included. Inpatient Cardiology Progress Note Patient Name: Gillian Branch Service: TIN WORKER / PA Responsible Attending: Ben Schaeffer MD Reason for continued hospitalization: NSTEMI New HFrEF - LVEF ~17 % FLIGHT LINE SERVICE ATTENDANT of LAD seen on cardiac cath, planned PCI for Saturday after review of the cardiac MRI Active Problems: Active Hospital Problems Diagnosis ??? NSTEMI (non-ST elevated myocardial infarction) ??? Acute systolic congestive heart failure Resolved Hospital Problems No resolved problems to display. Interval History: Patient did well overnight with no chest pain or shortness of breath. Aware of theplan for PCI of his FLIGHT LINE SERVICE ATTENDANT LAD on Saturday. Dr. Schaeffer's examination of [...] cardiac surgery consult. Anatomy is favorable for FLIGHT LINE SERVICE ATTENDANT PCI. Cardiac MRI: 02/22/22 IMPRESSION Severe dilatation [...] HTN, GERD and anxiety [facility] [...] concerning for ischemic cardiomyopathy. Cardiac catheterization shows FLIGHT LINE SERVICE ATTENDANT of proximal LAD with collaterals from the RCA. Cardiac MRI shows some viability in the basilar to mid anterior, anterolateral and anteroseptal bowers. Unlikely to be viable distal anterior wall and anterior aspect of the apex. After discussion, plan for PCI of the FLIGHT LINE SERVICE ATTENDANT of the LADplus or minus IABP support on Saturday. After further review of the cardiac MRI we will plan to stop IV heparin. Plan: # NSTEMI TTE w/ LVEF 17% S/p ASA 325 mg and Plavix 300 mg loads Continue daily aspirin, restarted plavix dosing Continue metoprolol 25 mg q6 hrs Continue atorvastatin 40 mg nighty FLIGHT LINE SERVICE ATTENDANT of LAD found, planned PCI on Saturday [...] Discussed with MD Oliver Mistry APRN Pager [phone] 02/24/2022 Cardiovascular Attending Note I shared this [...] Progress Note Patient Name: Gillian Branch Service: TIN WORKER / PA Responsible Attending: Ben Schaeffer MD Reason for continued hospitalization: NSTEMI New HFrEF - LVEF ~17 % FLIGHT LINE SERVICE ATTENDANT of LAD seen on cardiac cath, planned [...] cardiac surgery consult. Anatomy is favorable for FLIGHT LINE SERVICE ATTENDANT PCI. Cardiac MRI: 02/22/22 IMPRESSION Severe dilatation [...] HTN, GERD and anxiety [facility] [...] concerning for ischemic cardiomyopathy. Cardiac catheterization shows FLIGHT LINE SERVICE ATTENDANT of proximal LAD with collaterals from the RCA. Cardiac MRI shows some viability in the basilar to mid anterior, anterolateral and anteroseptal bowers. Unlikely to be viable distal anterior wall and anterior aspect of the apex. After discussion, plan for PCI of the FLIGHT LINE SERVICE ATTENDANT of the LADplus or minus IABP support on Saturday. Will continue IV heparin. Restart Plavix dosing. Plan: # NSTEMI TTE w/ LVEF 17% S/p ASA 325 mg and Plavix 300 mg loads Continue daily aspirin, restarted plavix dosing Continue IV heparin Continue metoprolol 25 mg q6 hrs Continue atorvastatin 40 mg nighty FLIGHT LINE SERVICE ATTENDANT of LAD found, planned PCI on Saturday [...] Discussed with MD Oliver Mistry APRN Pager [phone] 02/23/2022 Cardiovascular Attending Note I shared this visit with Oilver Murry APRN. I performed and supplemented the [...] Progress Note Patient Name: Gillian Branch Service: TIN WORKER / PA Responsible Attending: Elmer Fiore MD Reason for continued hospitalization: NSTEMI New HFrEF - LVEF ~17 % FLIGHT LINE SERVICE ATTENDANT of LAD seen on cardiac cath Active Problems: Active Hospital Problems Diagnosis ??? NSTEMI (non-ST elevated myocardial infarction) ??? Acute systolic congestive heart failure Resolved Hospital Problems No resolved problems to display. Interval History: Patient with cardiac cath yesterday that found FLIGHT LINE SERVICE ATTENDANT of the LAD. Options for revascularization reviewed. [...] cardiac surgery consult. Anatomy is favorable for FLIGHT LINE SERVICE ATTENDANT PCI. Assessment: Gillian Branch is a 71 y.o. male with PMH of DM, HTN, GERD and anxiety [facility] [...] concerning for ischemic cardiomyopathy. Cardiac catheterization shows FLIGHT LINE SERVICE ATTENDANT of proximal LAD with collaterals from the [...] q6 hrs Continue atorvastatin 40 mg nighty FLIGHT LINE SERVICE ATTENDANT of LAD found, will get cardiac MRI [...] Discussed with Elmer Fiore MD Oliver Jeanmarie, HEALTH CARE SANITARY TECHNICIAN Pager [phone] 02/22/2022 Cardiology Staff I shared this visit with Ms. Murry. My role was to review the history, exam, laboratory, and imaging and to formulate the assessment and plan. I performed the medical decision making. In brief, patient with advanced cardiomyopathy and stable ischemic heart disease, now status post adequate diruesis for HF. Cath with LAD FLIGHT LINE SERVICE ATTENDANT. TTE with LVEF 20%, dense apical akinesis. Would be challenging PCI and CABG also an option. Should get viability assessment prior. For cardiac MR tomorrow. Advance GDMT HFrEF theapies and transition to PO diuretic. Elmer Fiore MD, MARLENY, FACC, FACP, FASE Cardiovascular Medicine Noel Lerner - 02/21/2022 10:07 AM EDT Inpatient Cardiology Progress Note Patient Name: Gillian Branch Service: TIN WORKER / PA Responsible Attending: Elmer Fiore MD [...] DM, HTN, GERD, anxiety who presented to [facility] with symptoms he thought was a [...] Progress Note Patient Name: Gillian Branch Service: TIN WORKER / PA Responsible Attending: Elmer Fiore MD [...] HTN, GERD and anxiety who [facility] [...] MD Ramirez Siddiqi PA-C 02/21/2022 Pager #: [phone] Cardiology Staff I shared this visit with [...] Souza MD Presenting Diagnosis/Chief Complaint: NSTEMI/Transferred from [facility] hospital for further management History of Present Illness: Gillian Branch is a 71 y.o. male with PMH of DM, HTN, GERD, anxiety who presented to [facility] with symptoms he thought was a [...] B/L, no calf tenderness, swelling, or erythema. 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 [...] HTN, GERD and anxiety who presented to [facility] with symptoms he thought was panic [...] drip Tisha Coleman MD 02/21/2022 Pager # [phone] documented in this encounter Miscellaneous Notes Consult [...] for home exercise. 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 He is physically active most of the day and averages 5-14K steps per day on his pedometer. Phase II Referral: Participation in the outpatient cardiac rehabilitation program at [facility] was discussed. Patient agrees to a [...] tele. See scanned docs. Pt left floor [id number] for director of cardiac cath lab, son stayed at bedside. Arrival from director of cardiac cath lab, pt has bilateral groin sites, CDI. R [...] from the original note were not included. [facility] [address]. Rothman, [place] [phone] Inpatient CHIP/FLIGHT LINE SERVICE ATTENDANT Interventional Cardiology Consult Note Referring Provider: Channing Gee, [address] [place] [address] Reason for Consultation: Management of ostial LAD FLIGHT LINE SERVICE ATTENDANT Past Cardiac History and Relevant Comorbidities: DM [...] disease. He presented initially on 02/19 to [facility] with the feeling of a panic attack, that in retrospect was likely PND/orthopnea. Troponin was positive and ECG showed anterior Q waves. He was transferred to [facility] for further management. TTE showed EF of 20% with LAD WMA's. He denies any chest pain throughout any of this. Subsequent coronary angiography demonstrated a flushoccluded LAD collateralized by RCA septal and epicardial collaterals. CMR demonstrated apical scar with a partially viable anterior wall. Cardiac surgery and CHIP/FLIGHT LINE SERVICE ATTENDANT services were consulted. He describes no prior history of angina or prior OR. 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 He denies angina in his day to [...] 10 Units, 10 Units, Subcutaneous, Nightly, Oliver Murry, HEALTH CARE SANITARY TECHNICIAN ??? insulin lispro (HumaLOG;Admelog) (100 unit/mL) subcutaneous injection vial 0-8 Units, 0-8 Units,Subcutaneous, TID WC, Oliver Murry, HEALTH CARE SANITARY TECHNICIAN ? ? POCT Fingerstick Glucose, , , 4x Daily AC & HS AND insulin lispro (HumaLOG;Admelog) (100unit/mL) subcutaneous injection vial 1-4 Units, 1-4 Units, Subcutaneous, 4 Times Daily AC & HS, Oliver Murry, HEALTH CARE SANITARY TECHNICIAN, 6 Units at 02/23/22 1246 ??? clopidogreL (Plavix) tablet 75 mg, 75 mg, Oral, Daily, Oliver Murry, HEALTH CARE SANITARY TECHNICIAN, 75 mg at 02/23/22 1323 ??? metoprolol tartrate (Lopressor) tablet 25 mg, 25 mg, Oral, Q6H ERIC, Oliver Murry, HEALTH CARE SANITARY TECHNICIAN, 25mg at 02/23/22 1246 ??? spironolactone (Aldactone) tablet 12.5 mg, 12.5 mg, Oral, Daily, Oliver Murry, HEALTH CARE SANITARY TECHNICIAN, 12.5 mg at 02/23/22 0906 ??? furosemide [...] assessment): ECG 02/20/2022: Normal sinus rhythm, anteroseptal OR TTE: Severely dilated and dysfunctional LV, EF 19%, RV normal, valves normal CMRI: EF 22%, distal anterior wall and apex scar, viable basilar and mid anterior wall, laminar thrombus in the LV Cath: FLIGHT LINE SERVICE ATTENDANT of the LAD, collaterals from [facility] [...] 11 13 20 CREATININE 0.72* 0.74* 0.80 FLIGHT LINE SERVICE ATTENDANT Scoring: J-FLIGHT LINE SERVICE ATTENDANT Score: 2 A/P: Gillian Branch is a 71 y.o. male who presents for evaluation for complex / high risk intervention of the LAD. CAD with FLIGHT LINE SERVICE ATTENDANT of the LAD: We had an extensive discussion surrounding the risks/benefits of FLIGHT LINE SERVICE ATTENDANT PCI and the higher risk nature of the procedure. Based on a J-FLIGHT LINE SERVICE ATTENDANT score of 2, this is a High complexity lesion and based on Progress FLIGHT LINE SERVICE ATTENDANT score, there is a 80% chance of success and a 2-4% chance of a major com plication. We discussed that FLIGHT LINE SERVICE ATTENDANT PCI performed in the setting of myocardial recovery is reasonable for symptom improvement, and that studies supporting LV functional recovery following revascularization of hibernating myocardium have had mixed results. I discussed the case with my colleagues from [facility] who agreed with an antegrade approach [...] preserve potential surgical options. 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 Has referral out to [facility] for counseling; waiting to hear back from [...] Coverage: Yes Preferred Pharmacy: No Pharmacies Listed [place] Status: Patient is a : Yes Are you enrolled in the [place] for your [place]?: No Primary Care Provider: Navin Souza MD [phone] Patient/Caregiver Goals of Treatment: Pt eager to recover and return home. Hoping to get a handle onpanic attacks. Potential Needs for Transition of Care: none Agency Referrals: Not Applicable Transportation: no concerns Transportation Anticipated: family or friend will provide Concerns to be Addressed: denies needs/concerns at this time Assessment: Patient is admitted to Cardiology service for NSTEMI Plan: Pt to follow up with [facility] for counseling; otherwise, pt denies needs or concerns. Pt is aware that treatment team and care management team are available for needs and concerns. A member of the Care Management team will continue to monitor progress, follow for continuity of care and assist with transition of care planning. VIVIEN Ramesh, GREENS CUTTER Service Delivery Manager Office of Care Management [phone] Plan of Care - Tisha Coleman MD [...] further details. Tisha Coleman MD 02/20/2022 Pager [phone] documented in this encounter Plan of Treatment [...] 179 65 - 199 [place] mg/dL [facility] Comment: Supplemental ranges: <140 mg/dL before meals <180 mg/dL all other times of the day Specimen Anatomical Collection Method Collection Time Receive d Time (Source) Location / / Volume Laterality Blood 02/28/2022 11:39 02/28/2022 AM EDT 11:39 AM EDT Ben Schaeffer MD POINT OF CARE TEST ORDERABLE S Performing Organization Address City/State/[place] [address] POCT Glucose (02/28/2022 7:54 AM EDT) athologist Signature POC Glucose 160 65 - 199 [place] mg/dL [facility] Comment: Supplemental ranges: <140 mg/dL before meals <180 mg/dL all other times of the day Specimen Anatomical Collection Method Collection Time Receive d Time (Source) Location / / Volume Laterality Blood 02/28/2022 7:54 AM 7:54 EDT AM EDT Ben Schafefer MD POINT OF CARE TEST ORDERABLE S Performing Organization Address City/State/[place] [address] (ABNORMAL) Parasite Identification Tick (02/28/2022 7:15 AM EDT) Component Value Ref Test Analysis Performed At [facility] gist Range Method Time Signature Parasite Specimen CAR[place] Identification submitted for [facility] identified as: [facility] Dermacentor LABORATORY species (A) Organism Dermacentor [place] species (A) [facility] Specimen Anatomical Collection Method Collection Time Receive d Time (Source) Location / / Volume Laterality Tick 02/28/2022 7:15 AM 2 9:13 EDT AM EDT Resulting Agency Comment Spec In Lab Robert Delarosa MD MICROBIOLOGY - GENERAL ORDER ROSEY Performing Organization Address City/[facility]/ZIP Code Phon e Number [place] [id number] EKG 12 Lead (02/28/2022 6:15 AM EDT) Component Value Ref Range Test Analysis Performed Pathologis t Method Time At Signature Ventricular rate 68 BPM MUSE SYSTEM Atrial Rate 68 BPM MUSE SYSTEM P-R Interval 178 ms MUSE SYSTEM QRS Duration 114 ms MUSE SYSTEM Q-T Interval 424 ms MUSE SYSTEM QTC Calculated 450 ms MUSE SYSTEM (Bezet) Calculated P [place] 60 degrees MUSE SYSTEM Calculated R [place] -36 degrees MUSE SYSTEM Calculated T [place] 122 degrees MUSE SYSTEM INTERPRETATION Normal sinus [...] int erpretation Confirmed by fellow Wesley Almonte ([id number]) on 02/28/2022 5:20:07 PM Confirmed by MD Chang Danette ([id number]) on 03/01/2022 8:27:08 AM Specimen Anatomical Collection Method Collection Time Receive d Time (Source) Location / / Volume Laterality 02/28/2022 6:15 AM 2 8:27 EDT AM EDT Oliver Murry APRN ECG ORDERABLES Performing Organization Address City/[facility]/ZIP Code Phon e Number MUSE SYSTEM Differential, Automated (02/28/2022 3:35 AM EDT) P athologist Signature Neutrophils % 67.6 % [facility] Neutr Abs (ANC) 4.15 1.70 - [facility] 6.10 [facility] x10(3)/[facility] LABORATORY Lymphocytes % 16.4 % [facility] Lymphocytes Abs 1.0 0.9 - 3.2 [facility] x10(3)/[facility] LABORATORY Monocytes % 12.4 % [facility] Monocyte Abs 0.8 0.3 - 0.9 [facility] x10(3)/[facility] LABORATORY Eosinophils % 2.8 % [facility] Eosinophils Abs 0.2 0.0 - 0.4 [facility] x10(3)/[facility] LABORATORY Basophils % 0.5 % [facility] Basophils Abs 0.0 0.0 - 0.1 [facility] x10(3)/[facility] LABORATORY Immature Gran % 0.30 % [facility] Comment: Immature granulocytes(IG's)percentage an d absolute count will include metamyelocytes, myelocytes, and promyelo cytes. Blood smears from CBCs yielding IG's will be scanned manually for concor dance. If this scan disagrees with the automated IG or if promyelocytes are not ed, a manual differential will be performed. Julianna Gran Abs 0.02 0.00 - 0.04 x10(3)/[facility] MAR Y [facility] Specimen Anatomical Collection Method Collection Time Receive d Time (Source) Location / / Volume Laterality Blood 02/28/2022 3:35 AM 2 4:14 EDT AM EDT Resulting Agency Comment Spec In Lab Oliver Murry APRN HEMATOLOGY ORDERABLES Performing Organization Address City/State/ZIP [place] [address] (ABNORMAL) Hemogram (02/28/2022 3:35 AM EDT) Analysis Performed At Patho logist Time Signature WBC 6.1 4.0 - 9.5 [facility] x10(3)/[facility] LABORATORY RBC 4.62 4.58 - [facility] 5.54 [facility] x10(6)/[facility] LABORATORY Hemoglobin 15.0 13.7 - [facility] 16.5 g/dL [facility] Hematocrit 43.1 40.5 - [facility] 48.5 % [facility] MCV 93.3 (H) 82.9 - [facility] 93.1 [facility] LABORATORY MCH 32.5 (H) 27.5 - [place] 32.1 pg [facility] MCHC 34.8 32.0 - [place] 35.7 g/dL [facility] Platelets 167 145 - 357 [place] x10(3)/[facility] LABORATORY RDWSD 42.9 36.0 - [place] 45.0 [facility] LABORATORY RDWCV 12.4 11.4 - [place] 13.8 % [facility] MPV 12.0 7.6 - 12.9 [place] [facility] LABORATORY nRBC % Auto 0.0 % [facility] nRBC Abs Auto 0.000 0.000 - [place] 0.000 [facility] x10(3)/[facility] LABORATORY Specimen Anatomical Collection Method Collection Time Receive d Time (Source) Location / / Volume Laterality Blood 02/28/2022 3:35 AM 2 4:14 EDT AM EDT Resulting Agency Comment Spec In Lab Oliver Murry APRN HEMATOLOGY ORDERABLES Performing Organization Address City/State/[place] [address] Magnesium (02/28/2022 3:35 AM EDT) P athologist Signature Magnesium 0.79 0.69 - 1.07 [facility] [place] mmol/L [facility] Specimen Anatomical Collection Method Collection Time Receive d Time (Source) Location / / Volume Laterality Blood 02/28/2022 3:35 AM 2 4:14 EDT AM EDT Resulting Agency Comment Spec In Lab Oliver Murry APRN CHEMISTRY ORDERABLES Performing Organization Address City/[facility]/[place] [address] (ABNORMAL) BMP w/fasting Glucose (02/28/2022 3:35 AM EDT) P athologist Signature Glucose 119 (H) 65 - 99 [facility] [place] Fasting mg/dL [facility] Comment: ?Fasting* Glucose Interpretive C [...] of Diabetes Mellitus, Position Statement from the [employer]. ??Diabete s Care, Volume 33, Supplement 1, Sep 2009 BUN 15 10 - 20 mg/dL [facility] Creatinine 0.89 0.80 - 1.50 mg/dL [facility] Sodium 135 135 - 145 mmol/L [facility] Potassium 4.3 3.5 - 5.0 mmol/L [facility] Comment: Please note: ??Patients with WBC >100,00 0 may have falsely elevated Potassium levels. ??For accurate Potassium quantif ication in these patients send serum separator tube (gold top) for subsequent determinations. ??Contact the Clinical Chemistry Laboratory if there are any qu estions. Chloride 102 98 - 107 mmol/L [facility] CO2 24 22 - 31 mmol/L [facility] Anion Gap 9 5 - 15 mmol/L [facility] Calcium 9.0 8.5 - 10.5 mg/dL [facility] Estimated GFR 93 >=60 mL/min/1.73 m?? [facility] Comment: This patient's estimated GFR was [...] Agency Comment Spec In Lab Oliver Murry HEALTH CARE SANITARY TECHNICIAN CHEMISTRY ORDERABLES Performing Organization Address City/[facility]/[place] [address] POCT Glucose (02/27/2022 8:50 PM EDT) athologist Signature POC Glucose 140 65 - 199 [facility] Comment: Supplemental ranges: <140 mg/dL before meals <180 mg/dL all other times of the day Specimen Anatomical Collection Method Collection Time Receive d Time (Source) Location / / Volume Laterality Blood 02/27/2022 8:50 PM 2 8:50 EDT PM EDT Ben Schaeffer MD POINT OF CARE TEST ORDERABLE S Performing Organization Address City/[facility]/[place] [address] (ABNORMAL) POCT Glucose (02/27/2022 4:07 PM EDT) athologist Signature POC Glucose 210 (H) 65 - 199 [facility] Comment: Supplemental ranges: <140 mg/dL before meals <180 mg/dL all other times of the day Specimen Anatomical Collection Method Collection Time Receive d Time (Source) Location / / Volume Laterality Blood 02/27/2022 4:07 PM 2 4:07 EDT PM EDT Ben Schaeffer MD POINT OF CARE TEST ORDERABLE S Performing Organization Address City/[facility]/[place] [address] EKG 12 Lead (02/27/2022 1:34 PM EDT) Component Value Ref Range Test Analysis Performed Pathologis t Method Time At Signature Ventricular rate 76 BPM MUSE SYSTEM Atrial Rate 76 BPM MUSE SYSTEM P-R Interval 188 ms MUSE SYSTEM QRS Duration 124 ms MUSE SYSTEM Q-T Interval 430 ms MUSE SYSTEM QTC Calculated 483 ms MUSE SYSTEM (Bezet) Calculated P [place] 53 degrees MUSE SYSTEM Calculated R [place] -38 degrees MUSE SYSTEM Calculated T [place] 107 degrees MUSE SYSTEM INTERPRETATION Normal sinus rhythm MUSE SYSTEM Left axis deviation Minimal voltage criteria for LVH, may be normal variant ( Stehekin product ) Abnormal ECG When compared with [...] Laterality Volume Narrative 02/27/2022 5:24 PM EDT ?[facility] ? Cardiac Cathete rization/Intervention Report ? Patient Name: Gillian Branch ? Procedure Date: 02/27/2022 ? A #: [id number] ? Primary Physician: Jose Luis Lopez ? Case #: [id number] ? File Name: [id number] ? Catheterization Order Number: [id number] ? [facility] ? Final Report [place], [place] ? Patient Name: ? Gillian Jose Carlos ? ID#: ?[id number] ? : ?1950 ? Procedure Date: ? [...] was designated as ASA Class IV. ?The [facility] clinical frailty scale is 4: Vulnerable. [...] procedure was Urgent. The indication for ?the director of cardiac cath lab visit is ACS great er than 24 [...] require ?modification of this regimen. C onsult [facility] Interventional Cardiology for ?questions. ?This patient has [...] any medical treatment. Consult ?http://tools.acc.org/DAPTriskap p/#!/content/calculator/ or [facility] ?Interventional Cardiology for q uestions ? Conclusions: [...] Dual Antiplatelet (DAPT) Recommendations above ?* Successful FLIGHT LINE SERVICE ATTENDANT PCI of the LAD with preservation of all side branches. ? Complications/Events: ?The patient had no complication s during these procedures. ? Comments: ?Challenging case of a 66 y/o ma n with a newly dx'ed ischemic ?cardiomyopathy presenting with partially viable LAD territory myocardium ?and an ostial LAD FLIGHT LINE SERVICE ATTENDANT. MCS was utilized using an IABP given EF of 19% and ?anticipated unprotected LM PCI. Given LV thrombus, impella could not be ?utilized and therefore this was a planned antegrade only case. Initial ?attempts to wire the vessel wit h a airline pilot flight instructor 200 were unsuccessful. The wire ?was continually [...] advanced into the D1 (supported ?by a [employer] flex microcather), a nd redirected intraplaque. After [...] ?protection/thrombectomy-coronary, access site angiography, IABP insertion ?in director of cardiac cath lab, IVUS # coronary, diamond oplasty-coronary, vascular closure ?device, IABP removal in director of cardiac cath lab a nd transthoracic echo . ? Jose Luis S Jessica, M.D. ? Electronically Signed by: Jose Luis So in, M.D. ? Report Finalized: 02/27/2022 ??17:17 ? Report Last Ammended: 04/02/2022 ??15:16 ? Procedure Note Jose Luis Lopez MD - 04/02/2022Format ting of this note might be different from the original. [facility] Cardiac Catheterization/Intervention Re port Patient Name: Gillian Branch Procedure Date: 02/27/2022 A #: [id number] Primary Physician: Jose Luis Lopez Case #: [id number] File Name: [id number] Catheterization Order Number: [id number] [facility] Final Report [place], [place] Patient Name: Gillian Branch ID#: [id number] : 1950 Procedure Date: February 27, 2022 [...] was designated as ASA Class IV. The [facility] clinical frailty scale is 4: V [...] e was Urgent. The indication for the director of cardiac cath lab visit is ACS greater than 24 hrs [...] this intervention was 20%. The final TI OR flow was 3. Left Circumflex Artery Proximal [...] 8 Fr EBU 3.5 guide utilizing an [employer]. The final outcome was defined as [...] require modification of this regimen. Consult [facility] Interventional Cardiology for questions. This patient has [...] any medical treatment. Consult http://tools.acc.org/DAPTriskapp/#!/con tent/calculator/ or [facility] Interventional Cardiology for questions Conclusions: * Significant [...] Antiplatelet (DAPT) Recommen dations above * Successful FLIGHT LINE SERVICE ATTENDANT PCI of the LAD with pr eservation of all side branches. Complications/Events: The patient had no complications during these procedures. Comments: Challenging case of a 66 y/o man with a newly dx'ed ischemic cardiomyopathy presenting with partiall y viable LAD territory myocardium and an ostial LAD FLIGHT LINE SERVICE ATTENDANT. MCS was utilized using an IABP given [...] acces s site angiography, IABP insertion in director of cardiac cath lab, IVUS # coronary, angioplas ty-coronary, vascular closure device, IABP removal in director of cardiac cath lab and tr ansthoracic echo . Jose Luis Lopez M.D. Electronically Signed by: Jose Luis velázquez M.D. Report Finalized: 02/27/2022 17:17 Report Last Ammended: 04/02/2022 15:16 Jose Luis Lopez MD CARDIAC CATH ORDERABLES POCT Glucose (02/27/2022 7:49 AM EDT) athologist Signature POC Glucose 161 65 - 199 [facility] mg/dL [facility] Comment: Supplemental ranges: <140 mg/dL before meals <180 mg/dL all other times of the day Specimen Anatomical Collection Method Collection Time Receive d Time (Source) Location / / Volume Laterality Blood 02/27/2022 7:49 AM 2 7:49 EDT AM EDT Ben Schaeffer MD POINT OF CARE TEST ORDERABLE S Performing Organization Address City/State/ZIP Code Phon e Number [place] [id number]OS[address] LAB[address]ORY Drive EKG 12 Lead (02/27/2022 6:12 AM EDT) Component Value Ref Range Test Analysis Performed Pathologis t Method Time At Signature Ventricular rate 73 BPM MUSE SYSTEM Atrial Rate 73 BPM MUSE SYSTEM P-R Interval 184 ms MUSE SYSTEM QRS Duration 122 ms MUSE SYSTEM Q-T Interval 428 ms MUSE SYSTEM QTC Calculated 471 ms MUSE SYSTEM (Bezet) Calculated P [place] 61 degrees MUSE SYSTEM Calculated R [place] -46 degrees MUSE SYSTEM Calculated T [place] 126 degrees MUSE SYSTEM INTERPRETATION Normal sinus [...] AM 2 8:12 EDT AM EDT Oliver Murry APRN ECG ORDERABLES Performing Organization Address City/State/ZIP Code Phon e Number MUSE SYSTEM Differential, Automated (02/27/2022 3:37 AM EDT) P athologist Signature Neutrophils % 62.3 % [facility] Neutr Abs (ANC) 3.89 1.70 - [facility] 6.10 [facility] x10(3)/[facility] LABORATORY Lymphocytes % 21.8 % [facility] Lymphocytes Abs 1.4 0.9 - 3.2 [facility] x10(3)/[facility] LABORATORY Monocytes % 11.7 % [facility] Monocyte Abs 0.7 0.3 - 0.9 [facility] x10(3)/[facility] LABORATORY Eosinophils % 3.4 % [facility] Eosinophils Abs 0.2 0.0 - 0.4 [facility] x10(3)/[facility] LABORATORY Basophils % 0.6 % [facility] Basophils Abs 0.0 0.0 - 0.1 [facility] x10(3)/[facility] LABORATORY Immature Gran % 0.20 % [facility] Comment: Immature granulocytes(IG's)percentage an d absolute count will include metamyelocytes, myelocytes, and promyelo cytes. Blood smears from CBCs yielding IG's will be scanned manually for concor dance. If this scan disagrees with the automated IG or if promyelocytes are not ed, a manual differential will be performed. Julianna Gran Abs 0.01 0.00 - 0.04 x10(3)/[facility] MAR Y [facility]ORY Specimen Anatomical Collection Method Collection Time Receive d Time (Source) Location / / Volume Laterality Blood 02/27/2022 3:37 AM 4:01 EDT AM EDT Resulting Agency Comment Spec In Lab Oliver Murry HEALTH CARE SANITARY TECHNICIAN HEMATOLOGY ORDERABLES Performing Organization Address City/State/ZIP [place] [address] (ABNORMAL) Hemogram (02/27/2022 3:37 AM EDT) Analysis Performed At Patho logist Time Signature WBC 6.2 4.0 - 9.5 [facility] x10(3)/[facility] LABORATORY RBC 5.32 4.58 - [facility] 5.54 [facility] x10(6)/[facility] LABORATORY Hemoglobin 16.6 (H) 13.7 - [facility] 16.5 g/dL [facility] Hematocrit 48.5 40.5 - [facility] 48.5 % [facility] MCV 91.2 82.9 - [facility] 93.1 fL [facility] MCH 31.2 27.5 - [facility] 32.1 pg [facility] MCHC 34.2 32.0 - [facility] 35.7 g/dL [facility] Platelets 178 145 - 357 [place] x10(3)/[facility] LABORATORY RDWSD 42.0 36.0 - [place] 45.0 [facility] LABORATORY RDWCV 12.5 11.4 - [place] 13.8 % [facility] MPV 12.2 7.6 - 12.9 [place] [facility] LABORATORY nRBC % Auto 0.0 % [facility] nRBC Abs Auto 0.000 0.000 - [place] 0.000 [facility] x10(3)/[facility] LABORATORY Specimen Anatomical Collection Method Collection Time Receive d Time (Source) Location / / Volume Laterality Blood 02/27/2022 3:37 AM 2 4:01 EDT AM EDT Resulting Agency Comment Spec In Lab Oliver Murry HEALTH CARE SANITARY TECHNICIAN HEMATOLOGY ORDERABLES Performing Organization Address City/[facility]/ZIP Code Phon e Number [address] Magnesium (02/27/2022 3:37 AM EDT) athologist Signature Magnesium 0.80 0.69 - 1.07 [facility] [place] mmol/L [facility] Specimen Anatomical Collection Method Collection Time Receive d Time (Source) Location / / Volume Laterality Blood 02/27/2022 3:37 AM 2 4:01 EDT AM EDT Resulting Agency Comment Spec In Lab Oliver Diane Jeanmarie HOPPERN CHEMISTRY ORDERABLES Performing Organization Address City/[facility]/[place] [address] (ABNORMAL) BMP w/fasting Glucose (02/27/2022 3:37 AM EDT) P athologist Signature Glucose 152 (H) 65 - 99 [facility] [place] Fasting mg/dL [facility] Comment: ?Fasting* Glucose Interpretive C [...] of Diabetes Mellitus, Position Statement from the [place] [employer]. ??Diabete s Care, Volume 33, Supplement 1, Sep 2009 BUN 17 10 - 20 mg/dL [facility] Creatinine 0.72 (L) 0.80 - 1.50 mg/dL [facility] Sodium 135 135 - 145 mmol/L [facility] Potassium 4.0 3.5 - 5.0 mmol/L [facility] Comment: Please note: ??Patients with WBC >100,00 0 may have falsely elevated Potassium levels. ??For accurate Potassium quantif ication in these patients send serum separator tube (gold top) for subsequent determinations. ??Contact the Clinical Chemistry Laboratory if there are any qu estions. Chloride 100 98 - 107 mmol/L [facility] CO2 23 22 - 31 mmol/L [facility] Anion Gap 12 5 - 15 mmol/L [facility] Calcium 9.2 8.5 - 10.5 mg/dL [facility] Estimated GFR 95 >=60 mL/min/1.73 m?? [facility] Comment: This patient? s estimated glomerular [...] Resulting Agency Comment Spec In Lab Oliverlester Murry APRN CHEMISTRY ORDERABLES Performing Organization Address City/[facility]/[place] [address] POCT Glucose (02/26/2022 9:14 PM EDT) athologist Signature POC Glucose 152 65 - 199 [facility] [place] mg/dL [facility] Comment: Supplemental ranges: <140 mg/dL before meals <180 mg/dL all other times of the day Specimen Anatomical Collection Method Collection Time Receive d Time (Source) Location / / Volume Laterality Blood 02/26/2022 9:14 PM 2 9:14 EDT PM EDT Ben Schaeffer MD POINT OF CARE TEST ORDERABLE S Performing Organization Address City/[facility]/[place] [address] POCT Glucose (02/26/2022 4:42 PM EDT) athologist Signature POC Glucose 146 65 - 199 [facility] Comment: Supplemental ranges: <140 mg/dL before meals <180 mg/dL all other times of the day Specimen Anatomical Collection Method Collection Time Receive d Time (Source) Location / / Volume Laterality Blood 02/26/2022 4:42 PM 2 4:42 EDT PM EDT Ben Schaeffer MD POINT OF CARE TEST ORDERABLE S Performing Organization Address City/State/[place] [address] POCT Glucose (02/26/2022 11:30 AM EDT) athologist Signature POC Glucose 178 65 - 199 [facility] [place] mg/dL [facility] Comment: Supplemental ranges: <140 mg/dL before meals <180 mg/dL all other times of the day Specimen Anatomical Collection Method Collection Time Receive d Time (Source) Location / / Volume Laterality Blood 02/26/2022 11:30 02/26/2022 AM EDT 11:30 AM EDT Ben Schaeffer MD POINT OF CARE TEST ORDERABLE S Performing Organization Address City/State/ZIP [place] [address] ECHOCARDIOGRAM LIMITED W CONTRAST W COLOR DOPP (02/26/2022 7:49 AM EDT) Anatomical Region Laterality Modality Cardiac Other Specimen (Source) Anatomical Collection Method Collection Time Re ceived Time Location / / Volume Laterality 02/26/2022 7:18 AM EDT Narrative 02/26/2022 9:46 AM EDT ?[facility] ?[address] ? [place], [place] [address] ?Voice: ?Fax: ? Echocardiogram Report Name: GILLIAN BRANCH ?Study Date: 02/26/2022 07:18 AM ?BP: 119/71 mmHg ?Patient Lo cation: ICCU^442^B : 1950 ?Height: 76 in ?Account: [id number] Age: 71 yrs ?Weight: 229 lb Gender: [...] estimated visually at 20%. Procedure Limited - 81042. Color Doppler - 70200. Image enhancement Definity was used for left [...] note might be different from the original. [place] [address] [place] [address] Voice: Fax: Echocardiogram Report Name: GILLIAN BRANCH Study Date: 02/26/2022 07:18 AM BP: 119/71 mmHg Patient Location: [facility] 42^ : 1950 Height: 76 in Account: [id number] Age: 71 yrs Weight: 229 lb Gender: [...] estimated visually at 20%. Procedure Limited - 10478. Color Doppler - 47377. Image enhancement Definity was used for left [...] Signature POC Glucose 147 65 - 199 [facility] mg/dL [facility] Comment: Supplemental ranges: <140 mg/dL before meals <180 mg/dL all other times of the day Specimen Anatomical Collection Method Collection Time Receive d Time (Source) Location / / Volume Laterality Blood 02/26/2022 7:23 AM 7:23 EDT AM EDT Ben Schaeffer MD POINT OF CARE TEST ORDERABLE S Performing Organization Address City/State/ZIP [place] [address] EKG 12 Lead (02/26/2022 6:06 AM EDT) Component Value Ref Range Test Analysis Performed Pathologis t Method Time At Signature Ventricular rate 62 BPM MUSE SYSTEM Atrial Rate 62 BPM MUSE SYSTEM P-R Interval 184 ms MUSE SYSTEM QRS Duration 122 ms MUSE SYSTEM Q-T Interval 448 ms MUSE SYSTEM QTC Calculated 454 ms MUSE SYSTEM (Bezet) Calculated P [place] 52 degrees MUSE SYSTEM Calculated R [place] -43 degrees MUSE SYSTEM Calculated T [place] 144 degrees MUSE SYSTEM INTERPRETATION Normal sinus rhythm MUSE SYSTEM Left axis deviation Left ventricular hypertrophy with QRS widening a nd repolarization abnormality Cannot rule out Septal infarct (cited on or before 21-Feb-20) Abnormal ECG When compared with ECG of 25-FEB-2022 06:18, No significant change was found Confirmed by MD Chang Danette ([id number]) on 02/26/2022 5:18:36 PM Specimen Anatomical Collection Method Collection Time Receive d Time (Source) Location / / Volume Laterality 02/26/2022 6:06 AM 2 5:18 EDT PM EDT Oliver Murry HEALTH CARE SANITARY TECHNICIAN ECG ORDERABLES Performing Organization Address City/State/ZIP Code Phon e Number MUSE SYSTEM Differential, Automated (02/26/2022 3:55 AM EDT) P athologist Signature Neutrophils % 54.3 % [facility] Neutr Abs (ANC) 2.61 1.70 - [facility] 6.10 [facility] x10(3)[facility] LABORATORY Lymphocytes % 29.8 % [facility] Lymphocytes Abs 1.4 0.9 - 3.2 [facility] x10(3)/[facility] LABORATORY Monocytes % 11.3 % [facility] Monocyte Abs 0.5 0.3 - 0.9 [facility] x10(3)/[facility] LABORATORY Eosinophils % 4.0 % [facility] Eosinophils Abs 0.2 0.0 - 0.4 [facility] x10(3)/[facility] LABORATORY Basophils % 0.4 % [facility] Basophils Abs 0.0 0.0 - 0.1 [facility] x10(3)/[facility] LABORATORY Immature Gran % 0.20 % [facility] Comment: Immature granulocytes(IG's)percentage an d absolute count will include metamyelocytes, myelocytes, and promyelo cytes. Blood smears from CBCs yielding IG's will be scanned manually for alfa gonsalez. If this scan disagrees with the automated IG or if promyelocytes are not ed, a manual differential will be performed. Julianna Gran Abs 0.01 0.00 - 0.04 x10(3)/[facility] Y [facility] Specimen Anatomical Collection Method Collection Time Receive d Time (Source) Location / / Volume Laterality Blood 02/26/2022 3:55 AM 2 4:09 EDT AM EDT Resulting Agency Comment Spec In Lab Oliver Murry HEALTH CARE SANITARY TECHNICIAN HEMATOLOGY ORDERABLES Performing Organization Address City/State/ZIP [place] [address] Hemogram (02/26/2022 3:55 AM EDT) P athologist Signature WBC 4.8 4.0 - 9.5 [facility] [employer] x10(3)/[facility] LABORATORY RBC 5.24 4.58 - [place] 5.54 [facility] x10(6)/[facility] LABORATORY Hemoglobin 16.5 13.7 - [facility] [place] 16.5 g/dL [facility] Hematocrit 48.1 40.5 - [facility] [place] 48.5 % [facility] MCV 91.8 82.9 - [facility] [place] 93.1 [facility] LABORATORY MCH 31.5 27.5 - [place] 32.1 pg [facility] MCHC 34.3 32.0 - [place] 35.7 g/dL [facility] Platelets 173 145 - 357 [facility] x10(3)/[facility] LABORATORY RDWSD 42.4 36.0 - [place] [employer] 45.0 [facility] LABORATORY RDWCV 12.5 11.4 - [place] [facility] 13.8 % [facility] MPV 12.2 7.6 - 12.9 [facility] [employer] [facility] LABORATORY nRBC % Auto 0.0 % [facility] nRBC Abs Auto 0.000 0.000 - [facility] [employer] 0.000 [facility] x10(3)/[facility] LABORATORY Specimen Anatomical Collection Method Collection Time Receive d Time (Source) Location / / Volume Laterality Blood 02/26/2022 3:55 AM 4:09 EDT AM EDT Resulting Agency Comment Spec In Lab Oliver Murry HEALTH CARE SANITARY TECHNICIAN HEMATOLOGY ORDERABLES Performing Organization Address City/State/ZIP [place] [address] [facility] LABORATORY Drive Magnesium (02/26/2022 3:55 AM EDT) P athologist Signature Magnesium 0.79 0.69 - 1.07 [facility] mmol/L [facility] Specimen Anatomical Collection Method Collection Time Receive d Time (Source) Location / / Volume Laterality Blood 02/26/2022 3:55 AM 2 4:09 EDT AM EDT Resulting Agency Comment Spec In Lab Oliver Murry RENETTA CHEMISTRY ORDERABLES Performing Organization Address City/State/ZIP [place] [address] (ABNORMAL) BMP w/fasting Glucose (02/26/2022 3:55 AM EDT) P athologist Signature Glucose 144 (H) 65 - 99 [facility] Fasting mg/dL [facility] Comment: ?Fasting* Glucose Interpretive C [...] of Diabetes Mellitus, Position Statement from the [employer]. ??Diabete s Care, Volume 33, Supplement 1, Sep 2009 BUN 14 10 - 20 mg/dL [facility] Creatinine 0.75 (L) 0.80 - 1.50 mg/dL [facility] Sodium 137 135 - 145 mmol/L [facility] Potassium 4.0 3.5 - 5.0 mmol/L [facility] Comment: Please note: ??Patients with WBC >100,00 0 may have falsely elevated Potassium levels. ??For accurate Potassium quantif ication in these patients send serum separator tube (gold top) for subsequent determinations. ??Contact the Clinical Chemistry Laboratory if there are any qu estions. Chloride 104 98 - 107 mmol/L [facility] CO2 22 22 - 31 mmol/L [facility] Anion Gap 11 5 - 15 mmol/L [facility] Calcium 9.4 8.5 - 10.5 mg/dL [facility] Estimated GFR 94 >=60 mL/min/1.73 m?? [facility] Comment: This patient? s estimated glomerular [...] Organization Address City/State/ZIP Code Phon e Number [address] POCT Glucose (02/25/2022 9:05 PM EDT) P athologist Signature POC Glucose 126 65 - 199 [facility] mg/dL [facility] Comment: Supplemental ranges: <140 mg/dL before meals <180 mg/dL all other times of the day Specimen Anatomical Collection Method Collection Time Receive d Time (Source) Location / / Volume Laterality Blood 02/25/2022 9:05 PM 2 9:05 EDT PM EDT Ben Schaeffer MD POINT OF CARE TEST ORDERABLE S Performing Organization Address City/State/[place] [address] POCT Glucose (02/25/2022 3:21 PM EDT) athologist Signature POC Glucose 125 65 - 199 [place] mg/dL [facility] Comment: Supplemental ranges: <140 mg/dL before meals <180 mg/dL all other times of the day Specimen Anatomical Collection Method Collection Time Receive d Time (Source) Location / / Volume Laterality Blood 02/25/2022 3:21 PM 2 3:21 EDT PM EDT Ben Schaeffer MD POINT OF CARE TEST ORDERABLE S Performing Organization Address City/State/ZIP Code Phon e Number [address] POCT Glucose (02/25/2022 11:26 AM EDT) athologist Signature POC Glucose 150 65 - 199 [place] mg/dL [facility] Comment: Supplemental ranges: <140 mg/dL before meals <180 mg/dL all other times of the day Specimen Anatomical Collection Method Collection Time Receive d Time (Source) Location / / Volume Laterality Blood 02/25/2022 11:26 02/25/2022 AM EDT 11:26 AM EDT Ben Schaeffer MD POINT OF CARE TEST ORDERABLE S Performing Organization Address City/State/[place] [address] POCT Glucose (02/25/2022 7:21 AM EDT) athologist Signature POC Glucose 144 65 - 199 [place] mg/dL [facility] Comment: Supplemental ranges: <140 mg/dL before meals <180 mg/dL all other times of the day Specimen Anatomical Collection Method Collection Time Receive d Time (Source) Location / / Volume Laterality Blood 02/25/2022 7:21 AM 2 7:21 EDT AM EDT Ben Schaeffer MD POINT OF CARE TEST ORDERABLE S Performing Organization Address City/State/[place] [address] EKG 12 Lead (02/25/2022 6:18 AM EDT) Component Value Ref Range Test Analysis Performed Pathologis t Method Time At Signature Ventricular rate 61 BPM MUSE SYSTEM Atrial Rate 61 BPM MUSE SYSTEM P-R Interval 184 ms MUSE SYSTEM QRS Duration 120 ms MUSE SYSTEM Q-T Interval 458 ms MUSE SYSTEM QTC Calculated 461 ms MUSE SYSTEM (Bezet) Calculated P [place] 38 degrees MUSE SYSTEM Calculated R [place] -44 degrees MUSE SYSTEM Calculated T [place] -150 degrees MUSE SYSTEM INTERPRETATION Normal sinus rhythm MUSE SYSTEM Left axis deviation Left ventricular hypertrophy with QRS widening ( R in aVL , Stehekin product ) Cannot rule out Septal infarct (cited on or before 21-Feb-20) Abnormal ECG When compared with ECG of 23-FEB-2022 06:04, (unconfirmed) No significant change was found Confirmed by MD ANALIA, BEN ([id number]) on 02/25/2022 11:51:31 A M Specimen Anatomical Collection Method Collection Time Receive d Time (Source) Location / / Volume Laterality 02/25/2022 6:18 AM 2 EDT 11:51 AM EDT Oliver Murry APRN ECG ORDERABLES Performing Organization Address City/State/ZIP Code Phon e Number MUSE SYSTEM POCT Glucose (02/24/2022 8:47 PM EDT) athologist Signature POC Glucose 155 65 - 199 [facility] mg/dL [facility] Comment: Supplemental ranges: <140 mg/dL before meals <180 mg/dL all other times of the day Specimen Anatomical Collection Method Collection Time Receive d Time (Source) Location / / Volume Laterality Blood 02/24/2022 8:47 PM 2 8:47 EDT PM EDT Ben Schaeffer MD POINT OF CARE TEST ORDERABLE S Performing Organization Address City/State/ZIP [place] [address] POCT Glucose (02/24/2022 4:06 PM EDT) athologist Signature POC Glucose 92 65 - 199 [facility] mg/dL [facility] Comment: Supplemental ranges: <140 mg/dL before meals <180 mg/dL all other times of the day Specimen Anatomical Collection Method Collection Time Receive d Time (Source) Location / / Volume Laterality Blood 02/24/2022 4:06 PM 2 4:06 EDT PM EDT Ben Schaeffer MD POINT OF CARE TEST ORDERABLE S Performing Organization Address City/State/ZIP Code Phon e Number [address] POCT Glucose (02/24/2022 11:27 AM EDT) P athologist Signature POC Glucose 186 65 - 199 [facility] mg/dL [facility] Comment: Supplemental ranges: <140 mg/dL before meals <180 mg/dL all other times of the day Specimen Anatomical Collection Method Collection Time Receive d Time (Source) Location / / Volume Laterality Blood 02/24/2022 11:27 02/24/2022 AM EDT 11:27 AM EDT Ben Schaeffer MD POINT OF CARE TEST ORDERABLE S Performing Organization Address City/State/ZIP Code Phon e Number [address] POCT Glucose (02/24/2022 8:49 AM EDT) athologist Signature POC Glucose 148 65 - 199 [place] mg/dL [facility] Comment: Supplemental ranges: <140 mg/dL before meals <180 mg/dL all other times of the day Specimen Anatomical Collection Method Collection Time Receive d Time (Source) Location / / Volume Laterality Blood 02/24/2022 8:49 AM 2 8:49 EDT AM EDT Ben Schaeffer MD POINT OF CARE TEST ORDERABLE S Performing Organization Address City/State/[place] [address] POCT Glucose (02/24/2022 7:29 AM EDT) P athologist Signature POC Glucose 148 65 - 199 [place] mg/dL [facility] Comment: Supplemental ranges: <140 mg/dL before meals <180 mg/dL all other times of the day Specimen Anatomical Collection Method Collection Time Receive d Time (Source) Location / / Volume Laterality Blood 02/24/2022 7:29 AM 2 7:29 EDT AM EDT Ben Schaeffer MD POINT OF CARE TEST ORDERABLE S Performing Organization Address City/State/ZIP Code Phon e Number [address] Differential, Automated (02/24/2022 3:15 AM EDT) P athologist Signature Neutrophils % 63.5 % [facility] Neutr Abs (ANC) 4.04 1.70 - [facility] 6.10 [facility] x10(3)/[facility] LABORATORY Lymphocytes % 24.3 % [facility] Lymphocytes Abs 1.6 0.9 - 3.2 [facility] x10(3)/[facility] LABORATORY Monocytes % 8.9 % [facility] Monocyte Abs 0.6 0.3 - 0.9 [facility] x10(3)/[facility] LABORATORY Eosinophils % 2.8 % [facility] Eosinophils Abs 0.2 0.0 - 0.4 [facility] x10(3)/[facility] LABORATORY Basophils % 0.3 % [facility] Basophils Abs 0.0 0.0 - 0.1 [facility] x10(3)/[facility] LABORATORY Immature Gran % 0.20 % [facility] Comment: Immature granulocytes(IG's)percentage an d absolute count will include metamyelocytes, myelocytes, and promyelo cytes. Blood smears from CBCs yielding IG's will be scanned manually for concor dance. If this scan disagrees with the automated IG or if promyelocytes are not ed, a manual differential will be performed. Julianna Gran Abs 0.01 0.00 - 0.04 x10(3)/[facility] Specimen Anatomical Collection Method Collection Time Receive d Time (Source) Location / / Volume Laterality Blood 02/24/2022 3:15 AM 3:39 EDT AM EDT Resulting Agency Comment Spec In Lab Tisha Coleman MD HEMATOLOGY ORDERABLES Performing Organization Address City/[facility]/ZIP Code Phon e Number [address] Hemogram (02/24/2022 3:15 AM EDT) athologist Signature WBC 6.4 4.0 - 9.5 [facility] x10(3)/[facility] LABORATORY RBC 5.15 4.58 - [place] 5.54 [facility] x10(6)/[facility] LABORATORY Hemoglobin 16.0 13.7 - [facility] 16.5 g/dL [facility] Hematocrit 47.2 40.5 - [facility] 48.5 % [facility] MCV 91.7 82.9 - [facility] 93.1 [facility] LABORATORY MCH 31.1 27.5 - [place] 32.1 pg [facility] MCHC 33.9 32.0 - [facility] 35.[facility] g/dL [facility] Platelets 167 145 - 357 [facility] x10(3)/[facility] LABORATORY RDWSD 42.5 36.0 - [facility] 45.0 [facility] LABORATORY RDWCV 12.5 11.4 - [facility] 13.8 % [facility] MPV 12.2 7.6 - 12.9 [facility] LABORATORY nRBC % Auto 0.0 % [facility] nRBC Abs Auto 0.000 0.000 - [facility] 0.000 [facility] x10(3)/[facility] LABORATORY Specimen Anatomical Collection Method Collection Time Receive d Time (Source) Location / / Volume Laterality Blood 02/24/2022 3:15 AM 2 3:39 EDT AM EDT Resulting Agency Comment Spec In Lab Tisha Coleman MD HEMATOLOGY ORDERABLES Performing Organization Address City/State/ZIP [place] [address] Heparin (unfractionated) Level (02/24/2022 3:15 AM EDT) athologist Signature Heparin UFH 0.41 IU/mL [facility] LABORATORY Comment: Heparin (anti-Xa) levels should be [...] Organization Address City/State/[place] [address] (ABNORMAL) BMP w/fasting Glucose (02/24/2022 3:15 AM EDT) athologist Signature Glucose 155 (H) 65 - 99 [facility] Fasting mg/dL [facility] Comment: ?Fasting* Glucose Interpretive C [...] of Diabetes Mellitus, Position Statement from the [employer]. ??Diabete s Care, Volume 33, Supplement 1, Sep 2009 BUN 14 10 - 20 mg/dL [facility] Creatinine 0.79 (L) 0.80 - 1.50 mg/dL [facility] Sodium 136 135 - 145 mmol/L [facility] Potassium 3.8 3.5 - 5.0 mmol/L [facility] Comment: Please note: ??Patients with WBC >100,00 0 may have falsely elevated Potassium levels. ??For accurate Potassium quantif ication in these patients send serum separator tube (gold top) for subsequent determinations. ??Contact the Clinical Chemistry Laboratory if there are any qu estions. Chloride 101 98 - 107 mmol/L [facility] CO2 24 22 - 31 mmol/L [facility] Anion Gap 11 5 - 15 mmol/L [facility] Calcium 9.2 8.5 - 10.5 mg/dL [facility] Estimated GFR 92 >=60 mL/min/1.73 m?? [facility] Comment: This patient? s estimated glomerular [...] Organization Address City/State/ZIP [place] [address] POCT Glucose (02/23/2022 8:48 PM EDT) P athologist Signature POC Glucose 144 65 - 199 [facility] mg/dL [facility] Comment: Supplemental ranges: <140 mg/dL before meals <180 mg/dL all other times of the day Specimen Anatomical Collection Method Collection Time Receive d Time (Source) Location / / Volume Laterality Blood 02/23/2022 8:48 PM 2 8:48 EDT PM EDT Ben Schaeffer MD POINT OF CARE TEST ORDERABLE S Performing Organization Address City/State/ZIP Code Phon e Number [address] POCT Glucose (02/23/2022 4:22 PM EDT) athologist Signature POC Glucose 139 65 - 199 [place] mg/dL [facility] Comment: Supplemental ranges: <140 mg/dL before meals <180 mg/dL all other times of the day Specimen Anatomical Collection Method Collection Time Receive d Time (Source) Location / / Volume Laterality Blood 02/23/2022 4:22 PM 2 4:22 EDT PM EDT Ben Schaeffer MD POINT OF CARE TEST ORDERABLE S Performing Organization Address City/[facility]/[place] [address] (ABNORMAL) POCT Glucose (02/23/2022 12:30 PM EDT) P athologist Signature POC Glucose 235 (H) 65 - 199 [place] mg/dL [facility] Comment: Supplemental ranges: <140 mg/dL before meals <180 mg/dL all other times of the day Specimen Anatomical Collection Method Collection Time Receive d Time (Source) Location / / Volume Laterality Blood 02/23/2022 12:30 02/23/2022 PM EDT 12:30 PM EDT Ben Schaeffer MD POINT OF CARE TEST ORDERABLE S Performing Organization Address City/State/[place] [address] COVID-19 PCR (02/23/2022 11:29 AM EDT) [facility] Method Time Signature SARS-CoV-2 Not Detected Not Detected [facility] RNA [facility] Comment: This result should be interpreted [...] diagnosis of COVID-19 is performed using the [employer] Natalio varghese JANINE S-CoV-2 Assay as authorized by the FDA Emergency Use Authorization (EUA). This EUA assay is intended for In-vitro Diagnostic (IVD) use with respiratory sp ecimens such as nasopharyngeal swabs collected from individuals during the ac [place] phase of infection. This assay is performed based on the instructions for use provided by [employer] and additional guidance provided by CDC and FDA. Testing is performed in the Clinical Genomics and Advanced Technolog y Laboratory within the Department of Pathology and Laboratory Medicine at [facility], certified under the Clinical Laboratory Improvement Amendments [...] required or requested by public health [facility], positive specimens may be sent for [...] fact sheets at the following FDA website: https://www.fda.gov/medical-devices/mmlgtbajsop-ilxmrik-0215-ekvun-50-olefitfdh- ebe-rbkyyskmbntqqy-rbjndwx-devices/qhqhj-cogfqbtiirj-kusw SARS-Cov-2 RNA Source TIN WORKER Swab [facility] Specimen (Source) Anatomical Collection Method Collection Time Re ceived Time Location / / Volume Laterality Nasopharyngeal Swab 02/23/2022 11:29 06 AM EDT 8:12 PM EDT Comment: Symptoms->Surveillance Resulting Agency Comment Spec In Lab Ben Schaeffer MD MICROBIOLOGY - GENERAL ORDER ROSEY Performing Organization Address City/[facility]/ZIP Code Phon e Number [address] POCT Glucose (02/23/2022 7:48 AM EDT) P athologist Signature POC Glucose 190 65 - 199 [facility] mg/dL [facility] Comment: Supplemental ranges: <140 mg/dL before meals <180 mg/dL all other times of the day Specimen Anatomical Collection Method Collection Time Receive d Time (Source) Location / / Volume Laterality Blood 02/23/2022 7:48 AM 7:48 EDT AM EDT Ben Schaeffer MD POINT OF CARE TEST ORDERABLE S Performing Organization Address City/[facility]/[place] [address] EKG 12 Lead (02/23/2022 6:04 AM EDT) Component Value Ref Range Test Analysis Performed Pathologis t Method Time At Signature Ventricular rate 64 BPM MUSE SYSTEM Atrial Rate 64 BPM MUSE SYSTEM P-R Interval 186 ms MUSE SYSTEM QRS Duration 116 ms MUSE SYSTEM Q-T Interval 444 ms MUSE SYSTEM QTC Calculated 458 ms MUSE SYSTEM (Bezet) Calculated P [place] 58 degrees MUSE SYSTEM Calculated R [place] -42 degrees MUSE SYSTEM Calculated T [place] -157 degrees MUSE SYSTEM INTERPRETATION Normal sinus [...] 6:04 AM 8:44 EDT AM EDT Oliverlester Murry HEALTH CARE SANITARY TECHNICIAN ECG ORDERABLES Performing Organization Address City/State/ZIP Code Phon e Number MUSE SYSTEM Differential, Automated (02/23/2022 3:52 AM EDT) athologist Signature Neutrophils % 53.9 % [facility]ORATORY Neutr Abs (ANC) 2.62 1.70 - [facility] 6.10 [facility] x10(3)[facility] LABORATORY Lymphocytes % 31.5 % [facility] Lymphocytes Abs 1.5 0.9 - 3.2 [facility] x10(3)/[facility] LABORATORY Monocytes % 10.1 % [facility] Monocyte Abs 0.5 0.3 - 0.9 [facility] x10(3)/[facility] LABORATORY Eosinophils % 3.7 % [facility]ATORY Eosinophils Abs 0.2 0.0 - 0.4 [facility] x10(3)[facility] LABORATORY Basophils % 0.4 % [facility] LABORATORY Basophils Abs 0.0 0.0 - 0.1 [facility] x10(3)/[facility] LABORATORY Immature Gran % 0.40 % [facility]ORY Comment: Immature granulocytes(IG's)percentage an d absolute count will include metamyelocytes, myelocytes, and promyelo cytes. Blood smears from CBCs yielding IG's will be scanned manually for concor dance. If this scan disagrees with the automated IG or if promyelocytes are not ed, a manual differential will be performed. Julianna Gran Abs 0.02 0.00 - 0.04 x10(3)/[facility] LABORATORY Specimen Anatomical Collection Method Collection Time Receive d Time (Source) Location / / Volume Laterality Blood 02/23/2022 3:52 AM 2 4:28 EDT AM EDT Resulting Agency Comment Spec In Lab Tisha Coleman MD HEMATOLOGY ORDERABLES Performing Organization Address City/State/ZIP [place] [address] (ABNORMAL) Hemogram (02/23/2022 3:52 AM EDT) Analysis Performed At Patho logist Time Signature WBC 4.9 4.0 - 9.5 [facility] x10(3)/[facility] LABORATORY RBC 5.15 4.58 - [place] 5.54 [facility] x10(6)/[facility] LABORATORY Hemoglobin 16.5 13.7 - [facility] 16.[facility] g/dL [facility] Hematocrit 48.2 40.5 - [facility] 48.5 % [facility] MCV 93.6 (H) 82.9 - [facility] [place] 93.1 [facility] LABORATORY MCH 32.0 27.5 - [place] 32.1 pg [facility] LABORATORY MCHC 34.2 32.0 - [place] 35.7 g/dL [facility] Platelets 156 145 - 357 [facility] x10(3)/[facility] LABORATORY RDWSD 43.8 36.0 - [facility] [place] 45.0 [facility] LABORATORY RDWCV 12.6 11.4 - [facility] [place] 13.8 % [facility] LABORATORY MPV 12.2 7.6 - 12.9 [facility] [employer] [facility] LABORATORY nRBC % Auto 0.0 % [facility] LABORATORY nRBC Abs Auto 0.000 0.000 - [facility] [place] 0.000 [facility] x10(3)/[facility] LABORATORY Specimen Anatomical Collection Method Collection Time Receive d Time (Source) Location / / Volume Laterality Blood 02/23/2022 3:52 AM 2 4:28 EDT AM EDT Resulting Agency Comment Spec In Lab Tisha Coleman MD HEMATOLOGY ORDERABLES Performing Organization Address City/State/ZIP [place] [address] Heparin (unfractionated) Level (02/23/2022 3:52 AM EDT) athologist Signature Heparin UFH 0.54 IU/mL [facility] LABORATORY Comment: Heparin (anti-Xa) levels should be [...] Organization Address City/State/ZIP Code Phon e Number [address] (ABNORMAL) BMP w/fasting Glucose (02/23/2022 3:52 AM EDT) athologist Signature Glucose 172 (H) 65 - 99 [facility] Fasting mg/dL [facility]OR[facility]ORY Comment: ?Fasting* Glucose Interpretive C [...] of Diabetes Mellitus, Position Statement from the [place] [employer]. ??Diabete s Care, Volume 33, Supplement 1, Sep 2009 BUN 11 10 - 20 mg/dL [facility] LABORATORY Creatinine 0.72 (L) 0.80 - 1.50 mg/dL [facility] LABORATORY Sodium 136 135 - 145 mmol/L [facility] Potassium 3.9 3.5 - 5.0 mmol/L [facility] Comment: Please note: ??Patients with WBC >100,00 0 may have falsely elevated Potassium levels. ??For accurate Potassium quantif ication in these patients send serum separator tube (gold top) for subsequent determinations. ??Contact the Clinical Chemistry Laboratory if there are any qu estions. Chloride 102 98 - 107 mmol/L [facility] LABORATORY CO2 23 22 - 31 mmol/L [facility] LABORATORY Anion Gap 11 5 - 15 mmol/L [facility] Calcium 9.4 8.5 - 10.5 mg/dL [facility] Estimated GFR 95 >=60 mL/min/1.73 m?? [facility] Comment: This patient? s estimated glomerular [...] Organization Address City/State/[place] [address] (ABNORMAL) POCT Glucose (02/22/2022 8:23 PM EDT) athologist Signature POC Glucose 207 (H) 65 - 199 [facility] [place] mg/dL [facility] Comment: Supplemental ranges: <140 mg/dL before meals <180 mg/dL all other times of the day Specimen Anatomical Collection Method Collection Time Receive d Time (Source) Location / / Volume Laterality Blood 02/22/2022 8:23 PM 2 8:23 EDT PM EDT Elmer Fiore MD POINT OF CARE TEST ORDERABLE S Performing Organization Address City/State/[place] [address] (ABNORMAL) POCT Glucose (02/22/2022 4:18 PM EDT) athologist Signature POC Glucose 221 (H) 65 - 199 [facility]/dL [facility] Comment: Supplemental ranges: <140 mg/dL before meals <180 mg/dL all other times of the day Specimen Anatomical Collection Method Collection Time Receive d Time (Source) Location / / Volume Laterality Blood 02/22/2022 4:18 PM 2 4:18 EDT PM EDT Elmer Fiore MD POINT OF CARE TEST ORDERABLE S Performing Organization Address City/State/[place] [address] Heparin (unfractionated) Level (02/22/2022 2:13 PM EDT) athologist Signature Heparin UFH 0.34 IU/mL [facility] LABORATORY Comment: Heparin (anti-Xa) levels should be [...] Organization Address City/State/ZIP Code Phon e Number [place] [id number]OS[address] (ABNORMAL) MRI Cardiac Morphology [...] who have questions please contact the health care director that requested your imaging first. ? 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 TECHNIQUE: Axial HASTE without contrast. Short and long axis cine steady-state fr ee precession without contrast. ?? Short and long axis rest perfusion and d elayed enhancement after intravenous administration of 42 cc of Dotarem Post-processing performed on an [id number] computer workstation. Patient's calculated body surface area: [...] con tour and caliber. Non-cardiovascular structures: Trace julis ateral pleural effusion. QUANTITATIVE DATA: LEFT VENTRICLE: [...] POC Glucose 204 (H) 65 - 199 [facility]/dL [facility] Comment: Supplemental ranges: <140 mg/dL before meals <180 mg/dL all other times of the day Specimen Anatomical Collection Method Collection Time Receive d Time (Source) Location / / Volume Laterality Blood 02/22/2022 11:26 02/22/2022 AM EDT 11:26 AM EDT Elmer Fiore MD POINT OF CARE TEST ORDERABLE S Performing Organization Address City/State/[place] [address] POCT Glucose (02/22/2022 7:33 AM EDT) athologist Signature POC Glucose 182 65 - 199 [facility]/dL [facility] Comment: Supplemental ranges: <140 mg/dL before meals <180 mg/dL all other times of the day Specimen Anatomical Collection Method Collection Time Receive d Time (Source) Location / / Volume Laterality Blood 02/22/2022 7:33 AM 7:33 EDT AM EDT Elmer Fiore MD POINT OF CARE TEST ORDERABLE S Performing Organization Address City/State/[place] [address] Heparin (unfractionated) Level (02/22/2022 6:33 AM EDT) athologist Signature Heparin UFH 0.36 IU/mL [facility] LABORATORY Comment: Heparin (anti-Xa) levels should be [...] Organization Address City/State/ZIP [place] [address] Differential, Automated (02/22/2022 6:33 AM EDT) P athologist Signature Neutrophils % 57.8 % [facility] LABORATORY Neutr Abs (ANC) 3.35 1.70 - [facility] 6.10 [facility] x10(3)[facility] LABORATORY Lymphocytes % 25.5 % [facility] LABORATORY Lymphocytes Abs 1.5 0.9 - 3.2 [facility] x10(3)[facility] LABORATORY Monocytes % 10.2 % [facility] LABORATORY Monocyte Abs 0.6 0.3 - 0.9 [facility] x10(3)[facility] LABORATORY Eosinophils % 6.0 % [facility] LABORATORY Eosinophils Abs 0.4 0.0 - 0.4 [facility] x10(3)[facility] LABORATORY Basophils % 0.3 % [facility] LABORATORY Basophils Abs 0.0 0.0 - 0.1 [facility] x10(3)[facility] LABORATORY Immature Gran % 0.20 % [facility]ORATORY Comment: Immature granulocytes(IG's)percentage an d absolute count will include metamyelocytes, myelocytes, and promyelo cytes. Blood smears from CBCs yielding IG's will be scanned manually for concor dance. If this scan disagrees with the automated IG or if promyelocytes are not ed, a manual differential will be performed. Julianna Gran Abs 0.01 0.00 - 0.04 x10(3)/[facility] LABORATORY Specimen Anatomical Collection Method Collection Time Receive d Time (Source) Location / / Volume Laterality Blood 02/22/2022 6:33 AM 2 6:49 EDT AM EDT Resulting Agency Comment Spec In Lab Tisha Coleman MD HEMATOLOGY ORDERABLES Performing Organization Address City/State/Z[place] [address] Hemogram (02/22/2022 6:33 AM EDT) P athologist Signature WBC 5.8 4.0 - 9.5 [facility] x10(3)/[facility] LABORATORY RBC 5.12 4.58 - [facility] 5.54 [facility] x10(6)/[facility] LABORATORY Hemoglobin 16.1 13.7 - [facility] 16.5 g/dL [facility] Hematocrit 47.2 40.5 - [facility] 48.5 % [facility] MCV 92.2 82.9 - [facility] 93.1 [facility] LABORATORY MCH 31.4 27.5 - [facility] 32.1 pg [facility] LABORATORY MCHC 34.1 32.0 - [facility] 35.7 g/dL [facility] Platelets 169 145 - 357 [facility] x10(3)/[facility] RDWSD 42.8 36.0 - [facility] 45.0 [facility] LABORATORY RDWCV 12.5 11.4 - [facility] 13.8 % [facility] LABORATORY MPV 12.0 7.6 - 12.9 [facility] LABORATORY nRBC % Auto 0.0 % [facility] LABORATORY nRBC Abs Auto 0.000 0.000 - [facility] 0.000 [facility] x10(3)/[facility] LABORATORY Specimen Anatomical Collection Method Collection Time Receive d Time (Source) Location / / Volume Laterality Blood 02/22/2022 6:33 AM 2 6:49 EDT AM EDT Resulting Agency Comment Spec In Lab Tisha Coleman MD HEMATOLOGY ORDERABLES Performing Organization Address City/State/ZIP [place] [address] (ABNORMAL) BMP w/fasting Glucose (02/22/2022 6:33 AM EDT) P athologist Signature Glucose 186 (H) 65 - 99 [facility] Fasting mg/dL [facility] LABORATORY Comment: ?Fasting* Glucose Interpretive C [...] of Diabetes Mellitus, Position Statement from the [place] [employer]. ??Diabete s Care, Volume 33, Supplement 1, Sep 2009 BUN 13 10 - 20 mg/dL [facility] LABORAT[facility] Creatinine 0.74 (L) 0.80 - 1.50 mg/dL [facility] LABORATORY Sodium 136 135 - 145 mmol/L [facility] Potassium 4.4 3.5 - 5.0 mmol/L [facility] Comment: Please note: ??Patients with WBC >100,00 0 may have falsely elevated Potassium levels. ??For accurate Potassium quantif ication in these patients send serum separator tube (gold top) for subsequent determinations. ??Contact the Clinical Chemistry Laboratory if there are any qu estions. Chloride 102 98 - 107 mmol/L [facility] LABORATORY CO2 23 22 - 31 mmol/L [facility] LABORATORY Anion Gap 11 5 - 15 mmol/L [facility] Calcium 9.2 8.5 - 10.5 mg/dL [facility] Estimated GFR 94 >=60 mL/min/1.73 m?? [facility] LABOR[facility]ORY Comment: This patient? s estimated glomerular [...] Organization Address City/State/[place] [address] (ABNORMAL) POCT Glucose (02/21/2022 8:15 PM EDT) P athologist Signature POC Glucose 236 (H) 65 - 199 [facility] mg/dL [facility] Comment: Supplemental ranges: <140 mg/dL before meals <180 mg/dL all other times of the day Specimen Anatomical Collection Method Collection Time Receive d Time (Source) Location / / Volume Laterality Blood 02/21/2022 8:15 PM 2 8:15 EDT PM EDT Elmer Fiore MD POINT OF CARE TEST ORDERABLE S Performing Organization Address City/State/[place] [address] CARDIAC CATHETERIZATION (02/21/2022 4:55 PM EDT) Anatomical Region Laterality Modality Other Specimen (Source) Anatomical Location Collection Method / Collectio n Time Received Time / Laterality Volume Narrative 02/21/2022 5:19 PM EDT ?[facility] ? Cardiac Cathete rization/Intervention Report ? Patient Name: Jose Carlos, Gillian ? Procedure Date: 02/21/2022 ? A #: [id number] ? Primary Physician: Jesscia, Jose Luis S ? Case #: [id number] ? File Name: [id number] ? Catheterization Order Number: [id number] ? [facility] ? Final Report [place], [place] ? Patient Name: ? Gillian Branch ? ID#: ?[id number] ? : ?1950 ? Procedure Date: ? February 21, 2022 ? Case #: ? [id number] ? Room: ? 1 ? Case Physician: [...] procedure was Urgent. The indication for ?the director of cardiac cath lab visit is ACS less than or equal [...] cardiac surgery consult. 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 ? Complications/Events: ?The patient had no [...] left ?heart catheterization. ? Jose Luis S Jessiac, M.D. ? Electronically Signed by: Jose Luis So in, M.D. ? Report Finalized: 02/21/2022 ??17:12 ? Report Last Ammended: 03/29/2022 ??14:12 ? Procedure Note Jose Luis Lopez MD - 03/29/2022Format ting of this note might be different from the original. [facility] Cardiac Catheterization/Intervention Re port Patient Name: Gillian Branch Procedure Date: 02/21/2022 A #: [id number] Primary Physician: Jose Luis Lopez Case #: [id number] File Name: [id number] Catheterization Order Number: [id number] [facility] Lab [facility] Final Report [place], [place] Patient Name: Gillian Branch ID#: [id number] : 1950 Procedure Date: February 21, 2022 [...] was designated as ASA Class III. The [facility] clinical frailty scale is 4: Vulnerable. [...] e was Urgent. The indication for the director of cardiac cath lab visit is ACS less than or equal [...] c surgery consult. Anatomy is favorable for FLIGHT LINE SERVICE ATTENDANT PCI. Complications/Events: The patient had no complications [...] Signature POC Glucose 149 65 - 199 [facility] mg/dL [facility] LABORATORY Comment: Supplemental ranges: <140 mg/dL before meals <180 mg/dL all other times of the day Specimen Anatomical Collection Method Collection Time Receive d Time (Source) Location / / Volume Laterality Blood 02/21/2022 4:10 PM 4:10 EDT PM EDT Elmer Fiore MD POINT OF CARE TEST ORDERABLE S Performing Organization Address City/State/ZIP [place] [address] POCT Glucose (02/21/2022 11:35 AM EDT) athologist Signature POC Glucose 178 65 - 199 [facility] mg/dL [facility] LABOR[facility]ORY Comment: Supplemental ranges: <140 mg/dL before meals <180 mg/dL all other times of the day Specimen Anatomical Collection Method Collection Time Receive d Time (Source) Location / / Volume Laterality Blood 02/21/2022 11:35 02/21/2022 AM EDT 11:35 AM EDT Elmer Fiore MD POINT OF CARE TEST ORDERABLE S Performing Organization Address City/State/[place] [address] Heparin (unfractionated) Level (02/21/2022 9:04 AM EDT) athologist Signature Heparin UFH 0.51 IU/mL [facility] LABORATORY Comment: Heparin (anti-Xa) levels should be [...] Organization Address City/State/[place] [address] (ABNORMAL) Troponin (02/21/2022 9:04 AM EDT) athologist Signature Troponin-T 0.01 (H) 0.00 - [facility] 0.00 ng/mL [facility]OR[facility]ORY Comment: The 99th percentile for Troponin T is le ss than 0.01 ng/mL, any detectable cTnT concentration using this assay should be considered elevated. According to the third universal definit ion of myocardial infarction the following criteria with a clinical prese ntation consistent with acute myocardial ischemia meets the diagnosis for a myocardial infarction (OR). Detection of a rise and/or fall of [...] additional sample may be indicated. Reference: Third [place] Definition of Myocardial Infarction. Journal of the [place] College [employer] 2012;60:1581-98 Specimen Anatomical Collection Method Collection Time Receive d Time (Source) Location / / Volume Laterality Blood 02/21/2022 9:04 AM 9:23 EDT AM EDT Resulting Agency Comment Spec In Lab Tisha Coleman MD CHEMISTRY ORDERABLES Performing Organization Address City/State/ZIP Code Phon e Number [facility] [place] [place] [address] ECHOCARDIOGRAM COMPLETE W CONTRAST (02/21/2022 8:16 AM EDT) P athologist Signature EF 17 HEARTLAB SYSTEM Anatomical Region Laterality Modality Cardiac Other Specimen (Source) Anatomical Collection Method Collection Time Re ceived Time Location / / Volume Laterality 02/21/2022 7:12 AM EDT Narrative 02/21/2022 8:52 AM EDT ?[facility] ? [facility] ?[address] ? [place] [address] ?Voice: ?Fax: ? Echocardiogram Report Name: JOSE CARLOS GILLIAN ? Study Date: 02/21/2022 07:12 AMBP: 124/76 mmHg ? Patient Location: ICCU^442^B : 1950 ? Height: 193 cm ? Account: [id number] Age: 71 yrs ? Weight: 106 kg Gender: Male ?BSA: 2.4 m2 Ordering Physician: TISHA COLEMAN Referring Physician: CHANNING GEE Performed By: Grace Cabrera RDCS Reason For Study: Non-ST elevation myoca rdial infarction (NSTEMI) Interpreting Fellow: Kannan Medina. Exam Location: [facility]. Interpretation Summary 1. The left ventricle [...] is no prior study for comparison. Procedure Complete-20385. Image enhancement Optiso n was used for [...] valve mean: 4.1 mmHg MV E max elina: 62.9 cm/sec MV A max elian: 93.9 [...] note might be different from the original. [address] [place] [address] Voice: Fax: Echocardiogram Report Name: GILLIAN BRANCH Study Date: 02/21/2022 07:12 AMBP: 124/76 mmHg Patient Location: [facility] 42^B : 1950 Height: 193 cm Account: [id number] Age: 71 yrs Weight: 106 kg Gender: Male BSA: 2.4 m2 Ordering Physician: TISHA COLEMAN Referring Physician: CHANNING GEE Performed By: Grace Cabrera RDCS Reason For Study: Non-ST elevation myoca rdial infarction (NSTEMI) Interpreting Fellow: Kannan Medina. Exam Location: [facility]. Interpretation Summary 1. The left ventricle [...] is no prior study for comparison. Procedure Complete-[id number]. Image enhancement Optiso n was used for [...] POC Glucose 201 (H) 65 - 199 [facility] mg/dL [facility] Comment: Supplemental ranges: <140 mg/dL before meals <180 mg/dL all other times of the day Specimen Anatomical Collection Method Collection Time Receive d Time (Source) Location / / Volume Laterality Blood 02/21/2022 7:31 AM 7:31 EDT AM EDT Elmer Fiore MD POINT OF CARE TEST ORDERABLE S Performing Organization Address City/State/ZIP Code Phon e Number [address] Differential, Automated (02/21/2022 2:54 AM EDT) P athologist Signature Neutrophils % 60.0 % [facility] LABORATORY Neutr Abs (ANC) 3.83 1.70 - [facility] 6.10 [facility] x10(3)/[facility] LABORATORY Lymphocytes % 25.9 % [facility] HOSPITAL LABORATORY Lymphocytes Abs 1.6 0.9 - 3.2 [facility] x10(3)/[facility] LABORATORY Monocytes % 8.8 % [facility] LABORATORY Monocyte Abs 0.6 0.3 - 0.9 [facility] x10(3)/[facility] LABORATORY Eosinophils % 4.5 % [facility] LABORATORY Eosinophils Abs 0.3 0.0 - 0.4 [facility] x10(3)/[facility] LABORATORY Basophils % 0.6 % [facility] LABORATORY Basophils Abs 0.0 0.0 - 0.1 [facility] x10(3)/[facility] LABORATORY Immature Gran % 0.20 % [facility] LABORATORY Comment: Immature granulocytes(IG's)percentage an d absolute count will include metamyelocytes, myelocytes, and promyelo cytes. Blood smears from CBCs yielding IG's will be scanned manually for concor dance. If this scan disagrees with the automated IG or if promyelocytes are not ed, a manual differential will be performed. Julianna Gran Abs 0.01 0.00 - 0.04 x10(3)/[facility] LABORATORY Specimen Anatomical Collection Method Collection Time Receive d Time (Source) Location / / Volume Laterality Blood 02/21/2022 2:54 AM 2 3:09 EDT AM EDT Resulting Agency Comment Spec In Lab Tisha Coleman MD HEMATOLOGY ORDERABLES Performing Organization Address City/State/ZIP Code Phon e Number [place] [phone] HOSPITAL LABORATORY Drive Hemogram (02/21/2022 2:54 AM EDT) athologist Signature WBC 6.4 4.0 - 9.5 [facility] x10(3)/[facility] LABORATORY RBC 5.09 4.58 - [place] MCCANNROCIO 5.54 [facility] x10(6)/[facility] LABORATORY Hemoglobin 16.1 13.7 - [facility] g/dL [facility] LABORATORY Hematocrit 47.3 40.5 - [facility] ROCIO 48.5 % [facility] LABORATORY MCV 92.9 82.9 - [facility] ROCIO 93.1 [facility] LABORATORY MCH 31.6 27.5 - [place] 32.1 pg [facility] LABORATORY MCHC 34.0 32.0 - [place] 35.7 g/dL [facility] LABORATORY Platelets 173 145 - 357 [facility] x10(3)/[facility] LABORATORY RDWSD 43.3 36.0 - [place] ROC[place] 45.0 [facility] LABORATORY RDWCV 12.6 11.4 - [facility] ROC[place] 13.8 % [facility] LABORATORY MPV 12.1 7.6 - 12.9 [place] [facility] LABORATORY nRBC % Auto 0.0 % [facility] LABORATORY nRBC Abs Auto 0.000 0.000 - [place] ROC[place] 0.000 [facility] x10(3)/[facility] LABORATORY Specimen Anatomical Collection Method Collection Time Receive d Time (Source) Location / / Volume Laterality Blood 02/21/2022 2:54 AM 3:09 EDT AM EDT Resulting Agency Comment Spec In Lab Tisha Coleman MD HEMATOLOGY ORDERABLES Performing Organization Address City/State/Z[place] [address] Heparin (unfractionated) Level (02/21/2022 2:54 AM EDT) athologist Signature Heparin UFH 0.47 IU/mL [facility] LABORATORY Comment: Heparin (anti-Xa) levels should be [...] Organization Address City/State/[place] [address] (ABNORMAL) BMP w/fasting Glucose (02/21/2022 2:54 AM EDT) athologist Signature Glucose 173 (H) 65 - 99 [facility] Fasting mg/dL [facility] LABORATORY Comment: ?Fasting* Glucose Interpretive C [...] of Diabetes Mellitus, Position Statement from the [place] [employer]. ??Diabete s Care, Volume 33, Supplement 1, Sep 2009 BUN 20 10 - 20 mg/dL [facility] LABORATORY Creatinine 0.80 0.80 - 1.50 mg/dL [facility] LABORATORY Sodium 137 135 - 145 mmol/L [facility] LABORATORY Potassium 4.0 3.5 - 5.0 mmol/L [facility] LABORATORY Comment: Please note: ??Patients with WBC >100,00 0 may have falsely elevated Potassium levels. ??For accurate Potassium quantif ication in these patients send serum separator tube (gold top) for subsequent determinations. ??Contact the Clinical Chemistry Laboratory if there are any qu estions. Chloride 102 98 - 107 mmol/L [facility] LABORATORY CO2 24 22 - 31 mmol/L [facility] LABORATORY Anion Gap 11 5 - 15 mmol/L [facility] LABORATORY Calcium 9.1 8.5 - 10.5 mg/dL [facility] LABORATORY Estimated GFR 91 >=60 mL/min/1.73 m?? [facility] LABORATORY Comment: This patient? s estimated glomerular [...] Organization Address City/State/ZIP [place] [address] Triglyceride (02/21/2022 2:54 AM EDT) P athologist Signature Triglycerides 112 mg/dL [facility] LABORATORY Comment: Average Risk/Lower Risk: <150 mg/dL Borderline High Risk: 150-199 mg/dL High Risk: 200-499 mg/dL Very High Risk: >sk=387 mg/dL Specimen Anatomical Collection Method Collection Time Receive d Time (Source) Location / / Volume Laterality Blood 02/21/2022 2:54 AM 2 3:09 EDT AM EDT Resulting Agency Comment Spec In Lab Tisha Coleman MD CHEMISTRY ORDERABLES Performing Organization Address City/State/Z[place] [address] HDL/Cholesterol Profile (02/21/2022 2:54 AM EDT) athologist Signature Chol, Total 132 mg/dL [facility] LABORATORY Comment: Lower Risk: <200 mg/dL Average Risk: 200-239 mg/dL Higher Risk: >vo=463 mg/dL HDL 54 mg/dL [facility] LABORATORY Comment: Males: ?? Higher Risk: <40 mg/dL Females: ?? Higher Risk: <50 mg/dL Chol/HDL Ratio 2.4 ratio [facility] LABORATORY Chol/HDL Interpretation See Note [facility] LABORATORY Comment: Lipid management should be guided by a p atient? s ASCVD risk, goals and preferences. ACC/AHA Guidelines recommend high intens ity statin if clinical ASCVD or LDL greater than or equal to 190 mg/dL. http://[email or web address]/KKB-HIF-Vvwcphhse Measure LDL if Total Cholesterol minus H DL Cholesterol is greater than 220 mg/dL. Adults aged 40-75 with LDL 70-189 mg/dL should have their 10 year ASCVD risk estimated with the ACC/AHA ASCVD risk es timator http://tools.acc.org/QNSJK-Bbbr-Rrfqjmxe r/ Statin should be discussed if risk [...] Coleman MD CHEMISTRY ORDERABLES Performing Organization Address City/[facility]/ZIP Code Phon e Number [address] LDL Cholesterol, Direct (02/21/2022 2:54 AM EDT) P athologist Signature LDL Chol 67 mg/dL [facility] LABORATORY Comment: Lowest Risk: <100 mg/dL Lower Risk: 100-129 mg/dL Borderline High Risk: 130-159 mg/dL High Risk: 160-189 mg/dL Very High Risk: >ud=803 mg/dL Specimen Anatomical Collection Method Collection Time Receive d Time (Source) Location / / Volume Laterality Blood 02/21/2022 2:54 AM 2 3:09 EDT AM EDT Resulting Agency Comment Spec In Lab Tisha Coleman MD CHEMISTRY ORDERABLES Performing Organization Address City/[facility]/ZIP Code Phon e Number [address] (ABNORMAL) Hemoglobin A1c (02/21/2022 2:54 AM EDT) Analysis Performed At Patho logist Time Signature Hemoglobin A1C 7.3 (H) 4.3 - 5.6 [facility] LABORATORY Comment: Reference Range: 4.3 - [...] 1, S67-74 Est Avg Gluc 162 mg/dL [facility] LABORATORY Comment: eAG equivalents for HbA1c [...] into estimated average glucose values. ??Diabetes Care 2008:31(8):4242-6616. Specimen Anatomical Collection Method Collection Time Receive d Time (Source) Location / / Volume Laterality Blood 02/21/2022 2:54 AM 2 3:09 EDT AM EDT Resulting Agency Comment Spec In Lab Tisha Coleman MD CHEMISTRY ORDERABLES Performing Organization Address City/State/ZIP Code Phon e Number [place] [phone] HOSPITAL LABORATORY Drive (ABNORMAL) Troponin (02/21/2022 2:54 AM EDT) athologist Signature Troponin-T 0.02 (H) 0.00 - [place] 0.00 ng/mL [facility] LABORATORY Comment: The 99th percentile for Troponin T is le ss than 0.01 ng/mL, any detectable cTnT concentration using this assay should be considered elevated. According to the third universal definit ion of myocardial infarction the following criteria with a clinical prese ntation consistent with acute myocardial ischemia meets the diagnosis for a myocardial infarction (OR). Detection of a rise and/or fall of [...] additional sample may be indicated. Reference: Third [place] Definition of Myocardial Infarction. Journal of the [place] College [employer] 2012;60:1581-98 Specimen Anatomical Collection Method Collection Time Receive d Time (Source) Location / / Volume Laterality Blood 02/21/2022 2:54 AM 2 3:09 EDT AM EDT Resulting Agency Comment Spec In Lab Tisha Coleman MD CHEMISTRY ORDERABLES Performing Organization Address City/[facility]/[place] [address] POCT Glucose (02/21/2022 12:42 AM EDT) athologist Signature POC Glucose 185 65 - 199 [facility] mg/dL [facility] LABORATORY Comment: Supplemental ranges: <140 mg/dL before meals <180 mg/dL all other times of the day Specimen Anatomical Collection Method Collection Time Receive d Time (Source) Location / / Volume Laterality Blood 02/21/2022 12:42 02/21/2022 AM EDT 12:42 AM EDT Elmer Fiore MD POINT OF CARE TEST ORDERABLE S Performing Organization Address City/State/[place] [address] (ABNORMAL) POCT Glucose (02/20/2022 10:41 PM EDT) athologist Signature POC Glucose 344 (H) 65 - 199 [facility] mg/dL [facility] Comment: Supplemental ranges: <140 mg/dL before meals <180 mg/dL all other times of the day Specimen Anatomical Collection Method Collection Time Receive d Time (Source) Location / / Volume Laterality Blood 02/20/2022 10:41 02/20/2022 PM EDT 10:41 PM EDT Elmer Fiore MD POINT OF CARE TEST ORDERABLE S Performing Organization Address City/State/ZIP Code [place] [address] COVID-19 PCR (02/20/2022 9:38 PM EDT) [facility] Method Time Signature SARS-CoV-2 Not Detected Not Detected [place] RNA PCR [facility] LABORATORY Comment: This result should be interpreted [...] using the Simplexa COVID-19 Direct Assay by [employer] Rewardsjennyfer clark as authorized by the FDA issued [...] Department of Pathology and Laboratory Medicine at [facility], certified under the Clinical Laboratory Improvement Amendmen [...] clinical management guidance information are available at [facility] CDC Coronavirus Disease 2019 (COVID-19) webpage under Information fo r Healthcare Professionals (https://www.cdc.gov/coronavirus/2019-nc ov/hcp/index.html). Additional information about this and ot her EUA tests can be found in provider and patient fact sheets at the following FDA website: https://www.fda.gov/medical-devices/zmjliytcbzf-mxpgnwe-3248-kgyul-90-wvanusygq- fwq-pdwzkzufzztvrz-qehmxgu-devices/gyenb-rjvirhfnzpf-zzyz SARS-CoV-2 Source [employer] [facility] LABORATORY Specimen (Source) Anatomical Collection Method Collection Time Re ceived Time Location / / Volume Laterality Nasopharyngeal Swab 02/20/2022 9:38 02/20 PM EDT 10:57 PM EDT Comment: Symptoms->Surveillance Resulting Agency Comment Spec In Lab Tisha Coleman MD MICROBIOLOGY - GENERAL ORDER ROSEY Performing Organization Address City/State/ZIP Code Phon e Number [place] [phone] HOSPITAL LABORATORY Drive Differential, Automated (02/20/2022 8:32 PM EDT) P athologist Signature Neutrophils % 60.0 % [facility] LABORATORY Neutr Abs (ANC) 3.61 1.70 - [facility] 6.10 [facility] x10(3)/[facility] LABORATORY Lymphocytes % 26.7 % [facility] LABORATORY Lymphocytes Abs 1.6 0.9 - 3.2 [facility] x10(3)/[facility] LABORATORY Monocytes % 8.1 % [facility] LABORATORY Monocyte Abs 0.5 0.3 - 0.9 [facility] x10(3)/[facility] LABORATORY Eosinophils % 4.3 % [facility] LABORATORY Eosinophils Abs 0.3 0.0 - 0.4 [facility] x10(3)/[facility] LABORATORY Basophils % 0.7 % [facility] LABORATORY Basophils Abs 0.0 0.0 - 0.1 [facility] x[facility](3[facility] LABORATORY Immature Gran % 0.20 % [facility] LABORATORY Comment: Immature granulocytes(IG's)percentage an d absolute count will include metamyelocytes, myelocytes, and promyelo cytes. Blood smears from CBCs yielding IG's will be scanned manually for concor dance. If this scan disagrees with the automated IG or if promyelocytes are not ed, a manual differential will be performed. Julianna Gran Abs 0.01 0.00 - 0.04 x10(3)/[facility] MAR Y [facility] LABORATORY Specimen Anatomical Collection Method Collection Time Receive d Time (Source) Location / / Volume Laterality Blood 02/20/2022 8:32 PM 8:40 EDT PM EDT Resulting Agency Comment Spec In Lab Tisha Coleman MD HEMATOLOGY ORDERABLES Performing Organization Address City/State/Z[place] [address] Hemogram (02/20/2022 8:32 PM EDT) P athologist Signature WBC 6.0 4.0 - 9.5 [facility] x10(3)/[facility] LABORATORY RBC 5.12 4.58 - [facility] ROCIO 5.54 [facility] x10(6)/[facility] LABORATORY Hemoglobin 16.4 13.7 - [facility] [place] 16.5 g/dL [facility] LABORATORY Hematocrit 47.6 40.5 - [facility] ROC[place] 48.5 % [facility] LABORATORY MCV 93.0 82.9 - [facility] ROC[place] 93.1 [facility] LABORATORY MCH 32.0 27.5 - [place] 32.1 pg [facility] LABORATORY MCHC 34.5 32.0 - [facility] [place] 35.7 g/dL [facility] LABORATORY Platelets 157 145 - 357 [facility] x10(3)/[facility] LABORATORY RDWSD 43.7 36.0 - [facility] ROC[place] 45.0 [facility] RDWCV 12.6 11.4 - [facility] ROC[place] 13.8 % [facility] LABORATORY MPV 12.1 7.6 - 12.9 [facility] [employer] [facility] LABORATORY nRBC % Auto 0.0 % [facility] LABORATORY nRBC Abs Auto 0.000 0.000 - [place] 0.000 [facility] x10(3)/[facility] LABORATORY Specimen Anatomical Collection Method Collection Time Receive d Time (Source) Location / / Volume Laterality Blood 02/20/2022 8:32 PM 2 8:40 EDT PM EDT Resulting Agency Comment Spec In Lab Tisha Coleman MD HEMATOLOGY ORDERABLES Performing Organization Address City/[facility]/[place] [address] (ABNORMAL) pro-Brain Natriuretic Peptide (02/20/2022 8:32 PM EDT) P athologist Signature ProBNP 4,959 (H) <=124 [facility] pg/mL [facility] LABORATORY Specimen Anatomical Collection Method Collection Time Receive d Time (Source) Location / / Volume Laterality Blood 02/20/2022 8:32 PM 2 8:40 EDT PM EDT Resulting Agency Comment Spec In Lab Tisha Coleman MD CHEMISTRY ORDERABLES Performing Organization Address City/[facility] [place] [address] Heparin (unfractionated) Level (02/20/2022 8:32 PM EDT) P athologist Signature Heparin UFH 0.09 IU/mL [facility] LABORATORY Comment: Heparin (anti-Xa) levels should be deter mined in a plasma sample that has been drawn 6 hours after a dose change to rizawna roximate steady-state for continuous heparin infusions. Indication [...] Coleman MD HEMATOLOGY ORDERABLES Performing Organization Address City/[facility]/[place] [address] Troponin (02/20/2022 8:32 PM EDT) P athologist Signature Troponin-T <0.01 0.00 - 0.00 [facility] ng/mL [facility] LABORATORY Comment: The 99th percentile for Troponin T is le ss than 0.01 ng/mL, any detectable cTnT concentration using this assay should be considered elevated. According to the third universal definit ion of myocardial infarction the following criteria with a clinical prese ntation consistent with acute myocardial ischemia meets the diagnosis for a myocardial infarction (OR). Detection of a rise and/or fall of [...] additional sample may be indicated. Reference: Third [place] Definition of Myocardial Infarction. Journal of the [place] College [employer]iology 2012;60:1581-98 Specimen Anatomical Collection Method Collection Time Receive d Time (Source) Location / / Volume Laterality Blood 02/20/2022 8:32 PM 2 8:40 EDT PM EDT Resulting Agency Comment Spec In Lab Tisha Coleman MD CHEMISTRY ORDERABLES Performing Organization Address City/[facility]/[place] [address] (ABNORMAL) BMP w/fasting Glucose (02/20/2022 8:32 PM EDT) athologist Signature Glucose 282 (H) 65 - 99 [facility] Fasting mg/dL [facility] LABORATORY Comment: ?Fasting* Glucose Interpretive C [...] of Diabetes Mellitus, Position Statement from the [place] Diabetes [employer]. ??Diabete s Care, Volume 33, Supplement 1, Sep 2009 BUN 20 10 - 20 mg/dL [facility] LABORATORY Creatinine 0.85 0.80 - 1.50 mg/dL [facility] LABORATORY Sodium 137 135 - 145 mmol/L [facility] LABORATORY Potassium 4.0 3.5 - 5.0 mmol/L [facility] LABORATORY Comment: Please note: ??Patients with WBC >100,00 0 may have falsely elevated Potassium levels. ??For accurate Potassium quantif ication in these patients send serum separator tube (gold top) for subsequent determinations. ??Contact the Clinical Chemistry Laboratory if there are any qu estions. Chloride 101 98 - 107 mmol/L [facility] LABORATORY CO2 24 22 - 31 mmol/L [facility] LABORATORY Anion Gap 12 5 - 15 mmol/L [facility] LABORATORY Calcium 9.3 8.5 - 10.5 mg/dL [facility] LABOR[facility]ORY Estimated GFR 89 >=60 mL/min/1.73 m?? [facility] LABORATORY Comment: This patient? s estimated glomerular [...] Coleman MD CHEMISTRY ORDERABLES Performing Organization Address City/[facility] [place] [address] EKG 12 Lead (02/20/2022 7:50 PM EDT) Component Value Ref Range Test Analysis Performed Pathologis t Method Time At Signature Ventricular rate 80 BPM MUSE SYSTEM Atrial Rate 80 BPM MUSE SYSTEM P-R Interval 170 ms MUSE SYSTEM QRS Duration 112 ms MUSE SYSTEM Q-T Interval 390 ms MUSE SYSTEM QTC Calculated 449 ms MUSE SYSTEM (Bezet) Calculated P [place] 52 degrees MUSE SYSTEM Calculated R [place] -34 degrees MUSE SYSTEM Calculated T [place] -91 degrees MUSE SYSTEM INTERPRETATION Normal sinus [...] Coleman MD ECG ORDERABLES Performing Organization Address City/[facility] Phon e Number MUSE SYSTEM [...] mg clopidogreL (Plavix) tablet 75 mg Given 02/28/2022 [...] for the duration of the active insulin. escitalopram (Lexapro) tablet 10 mg Given 02/28/2022 8:51 AM EDT 10 mg 10 mg, Oral, DAILY, First dose on Sat02/21/22 at 0900, Until Discontinued, Routine Given 02/26/2022 8:19 AM EDT 10 mg Given 02/25/2022 8:50 AM EDT 10 mg fentaNYL (pf) (50 mcg/mL) multi-dose Given 02/21/2022 4:33 PM ED T 25 mcg injection ONCE PRN, Starting on Sat02/21/22 at 1630, Until Sat02/21/22 at 1722, Cath (Intra-Procedure), Routine Given 02/21/2022 4:30 PM EDT 50 mcg folic acid (Folvite) tablet 1,000 mcg [...] grams.), Routine heparin (porcine) (1,000 units/mL) Given 02/21/2022 4:42 PM EDT 3,500 Units injection ONCE PRN, Starting on Sat02/21/22 at 1642, Until Sat02/21/22 at 1722, Cath (Intra-Procedure), Routine heparin (porcine) (5,000 units/1 mL) Given [...] SCHEDULED, First dose (after last modification) on Tamar 02/22/22 at 1200, Until Discontinued, Hold for SBP <90 or HR <60, Routine Given 02/28/2022 6:37 AM EDT 25 mg Given 02/28/2022 12:17 AM EDT 25 mg midazolam (pf) (Versed) (1 mg/mL) multi-dose Given 02/21/2022 4: 33 PM EDT 1 mg injection ONCE PRN, Starting on Sat02/21/22 at 1630, Until Sat02/21/22 at 1722, Cath (Intra-Procedure), Routine Given 02/21/2022 4:30 PM EDT 1 mg multivitamin with minerals (Thera [...] to 72 hours., Recovery (Recovery-Hospital Unit), Routine nitroGLYcerin 100 mcg/mL intracoronary Given 02/21/2022 4:38 PM EDT 150 mcg dilution ONCE PRN, Starting on Sat02/21/22 at 1638, Until Sat02/21/22 at 1722, Cath (Intra-Procedure), Routine pantoprazole EC (Protonix) tablet 40 mg [...] Given 02/25/2022 8:50 AM EDT 100 mg verapamiL (Isoptin) (2.5 mg/mL) injectio n Given 02/21/2022 4:38 PM EDT 2.5 mg ONCE PRN, Starting on Sat02/21/22 at 1638, Until Sat02/21/22 at 1722, Administer over 2 Minutes, Cath (Intra-Procedure) documented in this encounter Active and Recently Administered Medications Times are shown in EDT. Scheduled Medication Order 02/26/2022 02/27/2022 02/28/2022 aspirin EC tablet 81 mg 0819 (Given - Provider: Rebeca cortes RN) 0810 ([facility] Hold - Provider: Admin Adt - Reason: Transfer to a Procedural area)0900 (Automatically Held - Provider: Admin Adt)1550 ([facility] Unhold - Provider: Admin Adt) 0852 (Given - Provider: Jamaica Lockwood RN) 81 mg, Oral, DAILY, First dose on 05/07 at 0900, Until Discontinued, Routine atorvastatin (Lipitor) tablet 40 mg 1716 (Given - Prov ider: Rebeca Olivares RN) 0810 ([facility] Hold - Provider: Admin Adt - R andrea: Transfer to a Procedural area)1550 ([facility] Unhold - Provider: Admin Adt)1627 (Given - Provider: Effie Julio RN) 40 mg, Oral, EVERY EVENING, First dose o n Sat02/20/22 at 2230, Until Discontinued, Routine clopidogreL (Plavix) tablet 75 mg 0818 (Given - Provid er: Rebeca Olivares RN) 0810 ([facility] Hold - Provider: Admin Adt - R andrea: Transfer to a Procedural area)0900 (Automatically Held - Provider: Admin Adt)1550 ([facility] Unhold - Provider: Admin Adt) [...] - Prov ider: Rebeca Olivares RN) 0810 ([facility] Hold - Provider: Admin Adt - R andrea: Transfer to a Procedural area)0900 (Automatically Held - Provider: Admin Adt)1550 ([facility] Unhold - Provider: Admin Adt) 0851 (Given - Provider: Jamaica Lockwood RN) 10 mg, Oral, DAILY, First dose on 05/07 at 0900, Until Discontinued, Routine folic acid (Folvite) tablet 1,000 mcg 0818 (Given - Pr ovider: Rebeca Olivares RN) 0810 (NOV Hold - Provider: Admin Adt - R andrea: Transfer to a Procedural area)0900 (Automatically Held - Provider: Admin Adt)1550 ([facility] Unhold - Provider: Admin Adt) 0852 (Given - Provider: Jamaica Lockwood RN) 1,000 mcg, Oral, DAILY, First dose on 02/21/22 at 0900, Until Discontinued, Routine furosemide (Lasix) tablet 20 mg 0818 (Given - Provider: Unique Olivares RN) 0810 (NOV Hold - Provider: Admin Adt - Reason: Transfer to a Procedural area)0900 (Automatically Held - Provider: Admin Adt)1550 ([facility] Unhold - Provider: Admin Adt) 0852 (Given - Provider: Jamaica Lockwood RN) 20 mg, Oral, DAILY, First dose on 05/07 at 0930, Until Discontinued, Routine gabapentin (Neurontin) capsule 300 mg 0817 (Given - Pr ovider: Rebeca Olivares RN)1523 (Given - Provider: Rebeca Olivares RN)2038 (Given - Provider: Bria Eaton RN) 0810 ([facility] Hold - Provider: Admin Adt - R andrea: Transfer to a Procedural area)0900 (Automatically Held - Provider: Admin Adt)1500 (Automatically Held - Provider: Admin Adt)1550 ([facility] Unhold - Provider: Admin Adt) 0852 (Given - Provider: Jamaica Lockwood RN)1448 (Given - Provider: Jamaica Lockwood RN) 300 mg, Oral, 3 TIMES DAILY, First dose on Sat02/20/22 at 2230, Until Discontinued, Routine 1602 (Given - Provider: Rubio Zamarripa RN)2135 (Given - Provider: Bria Eaton, LONA) heparin (porcine) (5,000 units/1 mL) subcutaneous inje ction 5,000 Units 0816 (Given - Provider: Rebeca Olivares RN)2038 (Given - Provider: Bria Eaton, LONA) 0810 (MAR Hold - Provider: Admin Adt - R andrea: Transfer to a Procedural area)0900 (Automatically Held - Provider: Admin Adt)1550 (NOV Unhold - Provider: Admin Adt)2135 (Given [...] Julio RN - 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: 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)0810 (NOV Hold - Provider: Admin Adt - [...] Comment: 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)0810 (MAR Hold - Provider: Admin Adt - Reason: Transfer to a Procedural area)1130 (Automatically Held - Provider: Admin Adt) 1-4 Units, Subcutaneous, 4 TIMES DAILY B EFORE MEALS & NIGHTLY, First dose (after last modification) on Sat02/23/22 at 1130, Until Discontinued, Moderate BG 140 - 160 Give 2 units BG 161 - 200 Give 4 2158 (Given - Provider: Bria Eaton, LONA) 1550 (MAR Unhold - Provider: Admin Adt) units BG [...] 2) 2036 (Patch Applied - Provider: Bria Eaton, RN) 0810 (MAR Hold - Provider: Admin [...] area)0900 (Automatically Held - Provider: Admin Adt)1550 ([facility] Unhold - Provider: Admin Adt) 0900 (Patch Removed - Provider: Jamaica Lockwood, RN) Transdermal, EVERY 24 HOURS, First dose on Sat02/27/22 at 0900, Until Discontinued, Remove lidocaine 5% patch losartan (Cozaar) tablet 50 mg 0819 (Given - Provider: Lou Olivares RN) 0810 ([facility] Hold - Provider: Admin Adt - Reason: Transfer to a Procedural area)0900 (Automatically Held - Provider: Admin Adt)1550 ([facility] Unhold - Provider: Admin Adt) 0852 (Given - Provider: Jamaica Lockwood, LONA) 50 mg, Oral, DAILY, First dose on 05/07 at 0900, Until Discontinued, Routine metoprolol tartrate (Lopressor) tablet 25 mg 0535 (Giv en - Provider: Carmina Castillo RN)1203 (Given - Provider: Rebeca Olivares, LONA)1716 (Given - Provider: Rebeca Olivares, LONA)2356 (Given - Provider: Bria Eaton RN) 0638 (Given - Provider: Bria Eaton, RN)0810 ([facility] Hold - Provider: Admin Adt - Reason: Transfer to a Procedural area)1200 (Automatically Held - Provider: Admin Adt)1550 ([facility] Unhold - Provider: Admin Adt)1736 (Given - Provider: Effie Julio RN) 0017 (Given - Provider: Bria Eaton, RN)0637 (Given - Provider: Bria Eaton, RN)1147 (Given - Provider: Jamaica Lockwood, LONA) 25 mg, Oral, EVERY 6 HOURS SCHEDULED, Fi rst dose (after last modification) on Sat02/22/22 at 1200, Until Discontinued, Hold for SBP <90 or HR <60, Routine multivitamin with minerals (Thera M) tablet 1 tablet 0 819 (Given - Provider: Rebeca Olivares RN) 0810 ([facility] Hold - Provider: Admin Adt - R andrea: Transfer to a Procedural area)0900 (Automatically Held - Provider: Admin Adt)1550 ([facility] Unhold - Provider: Admin Adt) 1146 (Given - Provider: Jamaica Lockwood, RN) 1 tablet, Oral, DAILY, First dose on Sat02/21/22 at 0900, Until Discontinued, Routine pantoprazole EC (Protonix) tablet 40 mg 0818 (Given - Provider: Rebeca Olivares RN) 0810 ([facility] Hold - Provider: Admin Adt - R andrea: Transfer to a Procedural area)0900 (Automatically Held - Provider: Admin Adt)1550 ([facility] Unhold - Provider: Admin Adt) 0852 (Given - Provider: Jamaica Lockwood, RN) 40 mg, Oral, DAILY, First dose (after la st modification) on Sat02/21/22 at 0900, Until Discontinued, DO NOT CRUSH OR OPEN senna-docusate (Pericolace) 8.6-50 mg per tablet 2 tab let 1914 (Given - Provider: Rebeca Olivares RN) 0810 ([facility] Hold - Provider: Admin Adt - R andrea: Transfer to a Procedural area)0900 (Automatically Held - Provider: Admin Adt)1550 ([facility] Unhold - Provider: Admin Adt) 0900 (Not Given - Provider: Jamaica Lockwood RN - Reason: Patient/family refused) 2 tablet, Oral, DAILY, First dose on Sat02/26/22 at 1800, Until Discontinued, Routine sodium chloride 0.9 % (flush) (BD PosiFlush Normal Jose ine 0.9) flush 5 mL 0823 (Given - Provider: Rebeca Olivares RN)2158 (Given - Provider: Bria Eaton, RN) 0810 ([facility] Hold - Provider: Admin Adt - R andrea: Transfer to a Procedural area)0900 (Automatically Held - Provider: Admin Adt)1550 ([facility] Unhold - Provider: Admin Adt)2136 (Given - Provider: Bria Eaton, RN) 0841 (Given - Provider: Jamaica Lockwood, RN) 5 mL, Intravenous, 2 TIMES DAILY, First dose on Sat02/20/22 at 2230, Until Discontinued, Routine spironolactone (Aldactone) tablet 12.5 mg 0817 (Given - Provider: Rebeca Olivares RN) 0810 (NOV Hold - Provider: Admin Adt - R andrea: Transfer to a Procedural area)0900 (Automatically Held - Provider: Admin Adt)1550 (NOV Unhold - Provider: Admin Adt) 0851 (Given - Provider: Jamaica Lockwood, LONA) 12.5 mg, Oral, DAILY, First dose on Sat02/22/22 at 0900, Until Discontinued, DO NOT SPLIT, CRUSH OR OPEN, Routine thiamine (Vitamin B1) tablet 100 mg 0817 (Given - Prov ider: Rebeca Olivares RN) 0810 (NOV Hold - [...] indicated. , Routine aspirin chewable tablet (CANCELED) 08 (Given - Provider: Hadley Morales RN) ONCE [...] - Provider: Chantell Eaton RN - Comment: md clark) CONTINUOUS PRN, Starting on Sat02/27/22 at 1014, [...] or Regular (not diet) soda OR If TIN WORKER O, give 15 gram glucose 40% oral [...] - Reason: Transfer to a Procedural area)1550 ([facility] Unhold - Provider: Admin Adt)2135 (Given - Provider: Bria Eaton RN) 1 mg, Oral, EVERY 4 HOURS PRN, Starting on Sat02/20/22 at 2221, Until Sat02/28/22 at 1723, Anxiety, Withdrawal, Routine midazolam (pf) (Versed) (1 mg/mL) multi-dose injection (CAN ELED) 0823 (Given - Provider: Hadley Morales RN)0835 (Given - Provider: Hadley Morales RN)0913 (Given - Provider: Hadley Morales RN)1010 (Given - Provider: Hadley Morales RN)1058 (Given - Provider: Hadley Morales, LONA) ONCE [...] 30 MIN PRN, Starting on Sat02/20/22 at 2136, Until Sat02/28/22 at 1723
For BG 50-70 [...] MIN PRN, S tarting on Sat02/20/22 at 213, Until Sat02/28/22 at 1723, Low blood sugar
[...] episode. & nbsp; For persistent hypoglycemia, con die polisher longer-acting treatment for the duration of the active insulin.
Routine documented in this encounter Care Teams Electronic Tester Relationship Specialty Start Date End Date Navin Souza MD PCP - General Family Medicine 02/19/22 [address] [place] [address] documented as of this encounter
--- OUTSIDE RECORDS SUMMARY | 2022-08-22 10:02 | XMS_ITS | Encounter Summary ---
:1950 Author Organization [facility] [place] [address] Care Team Providers Name Role Phone Navin Souza MD Primary Care Provider Encounter Details Date Type Department Care Team Description 02/19/2022 Telephone Cardiology Juan Pablo Castro Jr., [facility] [place] [address] [facility] [phone] CARDIOLOGY DEPT [place], [place] [address] (Wo rk) Social History Tobacco Use Types Packs/Day Years Used Date Smoking Tobacco: Never Assessed Sex Assigned at Date Recorded Not on file documented as of this encounter Miscellaneous Notes Telephone Encounter - Juan Pablo Castro Jr., MD - 02/19/2022 6:05 AM EDT Contacted by [facility] ED for cardiology consultation. History taking and objective data are per the [facility] ED provider/staff member. Referring Location: [facility] Referring Provider: Channing Alfaro DO [address] [place] [address] Fuad Pendleton 71 y.o. w / a pmh sig for DM and HTN, presenting w/ a panic attack. Specifically, the pt woke up around 4 am feeling like the bowers are closing in. Denied sob, chest pain, or nausea. 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 Had a similar episode of a panic attack a few weeks ago, but had no troponin elevation or EKG changes. Today the pt was found to have a troponin elevation to 180, EKG showing a non- specific intraventricular conduction delay, and bedside TTE showed an EF of 35% w/ apical WMA. Troponin: 180 (60 ULN) BNP: Creatinine: 1 H/H: 16 Platelets: 163 EKG:NSr at 91 bpm, LAD, abnormal R wave progression, and non-specific intraventricular conduction delay. POCUS TTE: EF 35%, apical WMA. A/P: Given above history, presentation, and data, this episode most likely represents NSTEMI vs takotsubo CDMO. The pt has no clear chest pain symptoms, but did feel a great level of stress. In setting of new ekg changes, troponin, and WMA, recommended serial ekgs and transfer here for further ischemic work up. As the pts transfer will be delayed due to capacity, did recommend full plavix 600 mg with full dose aspirin and therapeutic heparin. documented in this encounter Plan of Treatment Not on filedocumented as of this encounter Visit Diagnoses Not on filedocumented in this encounter Care Teams Blocking Machine Tender Relationship Specialty Start Date End Date Navin Souza MD PCP - General Family Medicine 02/19/22 [address] [place] [address] documented as of this encounter
--- OUTSIDE RECORDS SUMMARY | 2022-08-22 10:06 | XMS_ITS | Continuity of Care Document ---
:[address] [facility] Care Team Providers Name Role Phone [facility] Unavailable Unavailable Medications Combined list of outpatient medications from Department of Defense and Veterans Affairs facilities. Medications provided include 1) outpatient medications from the last 15 months, and 2) patient-reported medications. Medication Details Route Status Patient Prescription Prescription Last Ordering Order Source Instructions Expires Number Dispense Provider Date Date AMOXICILLIN Active [id number] JENNIFER, 12/20/ Pharmac (AMOXICILLI 2 2021 y Data N), 500 MG, Transac CAPSULE, tion ORAL, Service [facility] Facilit RX LL, 500 y ea. BOTTLE ATORVASTATI Active [id number] DULAS, 03/06/ Pharmac N CALCIUM 2 2021 y Data (ATORVASTAT Transac IN tion CALCIUM), Service 80 MG, Facilit TABLET, y ORAL, [employer] MEETA, 1000 ea. BOTTLE ATORVASTATI Active [id number] DULAS,ZER / Pharmac N CALCIUM 2 HARIS 2021 y Data (atorvastat Transac in tion calcium), Service 80 MG, Facilit TABLET, y ORAL, [employer] 500 ea. BOTTLE ATORVASTATI Active [id number] DULAS,ZER / Pharmac N CALCIUM 2 HARIS 2021 y Data (atorvastat Transac in tion calcium), Service 80 MG, Facilit TABLET, y ORAL, [employer] 500 ea. BOTTLE ATORVASTATI Active [id number] DULAS, 03/05/ Pharmac N CALCIUM 2 2021 y Data (atorvastat Transac in tion calcium), Service 80 MG, Facilit TABLET, y ORAL, [facility] RX LL, 500 ea. BOTTLE BYDUREON Active [id number] ALANIZ,ORIANA 06/10/ Pharmac BCISE 1 HN 2020 y Data (exenatide Transac microsphere tion s), Service 2MG/0.85ML, Facilit AUTO INJCT, y SUBCUT, ASTRAZENECA , .85 ml SYRINGE BYDUREON Active [id number] ALANIZ,ORIANA 08/27/ Pharmac BCISE 1 HN 2020 y Data (exenatide Transac microsphere tion s), Service 2MG/0.85ML, Facilit AUTO INJCT, y SUBCUT, ASTRAZENECA , .85 ml SYRINGE BYDUREON Active [id number] ALANIZ,ORIANA 11/27/ Pharmac BCISE 2 HN 2021 y Data (exenatide Transac microsphere tion s), Service 2MG/0.85ML, Facilit AUTO INJCT, y SUBCUT, ASTRAZENECA , .85 ml SYRINGE CELECOXIB Active [id number] DEGE,SERA 09/25/ Pharmac (celecoxib) 2 2021 Data , 100 MG, Transac CAPSULE, tion ORAL, ABENA Service PHARMACEU, Facilit 500 ea. y BOTTLE CELECOXIB Active [id number] DEGE,SERA 12/24/ Pharmac (celecoxib) 2 2021 y Data , 100 MG, Transac CAPSULE, tion ORAL, ABENA Service PHARMACEU, Facilit 500 ea. y BOTTLE CELECOXIB Active [id number] DEGE,SERA 03/21/ Pharmac (celecoxib) 2 2021 y Data , 100 MG, Transac CAPSULE, tion ORAL, ABENA Service PHARMACEU, Facilit 500 ea. y BOTTLE CLOPIDOGREL Active [id number] DULAS,ZER / Pharmac (clopidogre 2 HARIS 2021 y Data l Transac bisulfate), tion 75 MG, Service TABLET, Facilit ORAL, [employer], y INC., 1000 ea. BOTTLE CLOPIDOGREL Active [id number] DULAS,ZER / Pharmac (clopidogre 2 HARIS 2021 y Data l Transac bisulfate), tion 75 MG, Service TABLET, Facilit ORAL, [employer], y INC., 1000 ea. BOTTLE CLOPIDOGREL Active [id number] DULAS, 03/06/ Pharmac (clopidogre 2 2021 y Data l Transac bisulfate), tion 75 MG, Service TABLET, Facilit ORAL, y SCIEGEN PHARMAC, 500 ea. BOTTLE CYCLOBENZAP Active [id number] KEYSHA, 02/16/ Pharmac RINE HCL 2 2021 y Data (cyclobenza Transac enoch HCl), tion 10 MG, Service TABLET, Facilit ORAL, y extraTKT., 1000 ea. BOTTLE CYCLOBENZAP Active [id number] KEYSHA, 03/21/ Pharmac RINE HCL 2 2021 y Data (cyclobenza Transac enoch HCl), tion 10 MG, Service TABLET, Facilit ORAL, y extraTKT., 1000 ea. BOTTLE CYCLOBENZAP Active [id number] KEYSHA, 12/17/ Pharmac RINE HCL 2 2021 y Data (cyclobenza Transac enoch HCl), tion 10 MG, Service TABLET, Facilit ORAL, y extraTKT., 1000 ea. BOTTLE CYCLOBENZAP Active [id number] KEYSHA, 01/18/ Pharmac RINE HCL 2 2021 y Data (cyclobenza Transac enoch HCl), tion 10 MG, Service TABLET, Facilit ORAL, y extraTKT., 1000 ea. BOTTLE CYCLOBENZAP Active [id number] KEYSHA, 11/30/ Pharmac RINE HCL 2 2021 y Data (cyclobenza Transac enoch HCl), tion 5 MG, Service TABLET, Facilit ORAL, y extraTKT., 100 ea. BOTTLE CYCLOBENZAP Active [id number] KEYSHA, 01/03/ Pharmac RINE HCL 2 2021 y Data (cyclobenza Transac enoch HCl), tion 5 MG, Service TABLET, Facilit ORAL, y extraTKT., 100 ea. BOTTLE ESCITALOPRA Active [id number] DEGE, 12/14/ P harmac M OXALATE 2 2021 y Data (escitalopr Transac am tion oxalate), Service 10 MG, Facilit TABLET, y ORAL, [employer], 1000 ea. BOTTLE ESCITALOPRA Active [id number] DEGE, 04/06/ P harmac M OXALATE 2 2021 y Data (escitalopr Transac am tion oxalate), Service 10 MG, Facilit TABLET, y ORAL, [employer] [facility], 1000 ea. BOTTLE ESCITALOPRA Active [id number] DEGE, 11/20/ P harmac M OXALATE 2 2021 y Data (escitalopr Transac am tion oxalate), Service 10 MG, Facilit TABLET, y ORAL, [employer] HEALTHCAR, 1000 ea. BOTTLE FLUOROURACI Active [id number] BALLENTIN 10 1/ Pharmac L 1 E, 2020 Data (FLUOROURAC Transac [place]), 5 %, tion CREAM(GM), Service TOPICAL, Facilit [facility] y [place], 40 g TUBE FLUOROURACI Active [id number] BALLENTIN / 6/ Pharmac L 1 E, 2020 Data (FLUOROURAC Transac IL), 5 %, tion CREAM(GM), Service TOPICAL, Facilit [facility] y [place], 40 g TUBE FUROSEMIDE Active [id number] DULAS,ZER 02/15 0/ Pharmac (furosemide 2 HARIS 2021 Data ), 20 MG, Transac TABLET, tion ORAL, Service AVKARE, Facilit 1000 ea. y BOTTLE FUROSEMIDE Active [id number] DULAS,ZER 04/17 7/ Pharmac (furosemide 2 HARIS 2021 Data ), 20 MG, Transac TABLET, tion ORAL, Service AVKARE, Facilit 1000 ea. y BOTTLE FUROSEMIDE Active [id number] DULAS, 03/06/ P harmac (FUROSEMIDE 2 2021 Data ), 20MG, Transac TABLET, tion ORAL, Service ARIN Facilit LABS., 1000 y ea. BOTTLE GABAPENTIN Active [id number] KEYSHA, 02/16/ P harmac (GABAPENTIN 2 2021 Data ), 300 MG, Transac CAPSULE, tion ORAL, Service [facility] Facilit RX LL, 500 y ea. BOTTLE GABAPENTIN Active [id number] KEYSHA, 03/21/ P harmac (GABAPENTIN 2 2021 Data ), 300 MG, Transac CAPSULE, tion ORAL, Service [facility] Facilit RX LL, 500 y ea. BOTTLE GABAPENTIN Active [id number] KEYSHA, 12/18/ P harmac (GABAPENTIN 2 2021 Data ), 300 MG, Transac CAPSULE, tion ORAL, Service [facility] Facilit RX LL, 500 y ea. BOTTLE GABAPENTIN Active [id number] KEYSHA, 01/16/ P harmac (GABAPENTIN 2 2022 y Data ), 300 MG, Transac CAPSULE, tion ORAL, Service [facility] Facilit RX LL, 500 y ea. BOTTLE Gabapentin Active [id number] KEYSHA, 10/29/ P harmac (Gabapentin 2 2021 y Data ), 300mg, Transac Capsule, tion Oral, Service Amneal Facilit Pharmace, y 500 Ea. Bottle Gabapentin Active [id number] MAZIN 10/12 / Pharmac (Gabapentin 2 , 2021 y Data ), 300mg, Transac Capsule, tion Oral, Service Amneal Facilit Pharmace, y 500 Ea. Bottle GLIMEPIRIDE Active [id number] DEGE, 08/08/ P harmac (GLIMEPIRID 1 2020 y Data E), 4MG, Transac TABLET, tion ORAL, Service 'S Facilit LAB, 100 y ea. BOTTLE GLIMEPIRIDE Active [id number] DEGE, 11/09/ P harmac (GLIMEPIRID 2 2021 y Data E), 4MG, Transac TABLET, tion ORAL, Service 'S Facilit LAB, 100 y ea. BOTTLE GLIMEPIRIDE Active [id number] DEGE, 11/12/ P harmac (GLIMEPIRID 2 2021 y Data E), 4MG, Transac TABLET, tion ORAL, Service 'S Facilit LAB, 100 y ea. BOTTLE GLIMEPIRIDE Active [id number] DEGE, 02/13/ P harmac (GLIMEPIRID 2 2021 y Data E), 4MG, Transac TABLET, tion ORAL, Service 'S Facilit LAB, 100 y ea. BOTTLE INVOKANA Active [id number] DEGE,SERA 09/12/ Pharmac (CANAGLIFLO 1 2020 y Data ZIN), 100 Transac MG, TABLET, tion ORAL, Service Edevate PHARM., 90 y ea. BOTTLE INVOKANA Active [id number] DEGE,SERA 01/06/ Pharmac (CANAGLIFLO 2 2021 y Data ZIN), 100 Transac MG, TABLET, tion ORAL, Service Organizer Facilit PHARM., 90 y ea. BOTTLE INVOKANA Active [id number] DEGE,SERA 06/15/ Pharmac (CANAGLIFLO 1 2020 y Data ZIN), 100 Transac MG, TABLET, tion ORAL, Service ARIANNA Facilit PHARM., 90 y ea. BOTTLE JARDIANCE Active [id number] STENDER, 03/02/ Pharmac (EMPAGLIFLO 2 2021 y Data ZIN), 10 Transac MG, TABLET, tion ORAL, Service BOEHRINGER Facilit ING., 30 y ea. BOTTLE JARDIANCE Active [id number] DULAS, 03/07/ Ph armac (EMPAGLIFLO 2 2021 y Data ZIN), 10 Transac MG, TABLET, tion ORAL, Service BOEHRINGER Facilit ING., 90 y ea. BOTTLE JARDIANCE Active [id number] DULAS,ZER 03/05 / Pharmac (EMPAGLIFLO 2 HARIS 2021 y Data ZIN), 10 Transac MG, TABLET, tion ORAL, Service BOEHRINGER Facilit ING., 90 y ea. BOTTLE JARDIANCE Active [id number] DULAS,ZER 05/12 / Pharmac (EMPAGLIFLO 2 HARIS 2021 y Data ZIN), 10 Transac MG, TABLET, tion ORAL, Service BOEHRINGER Facilit ING., 90 y ea. BOTTLE LORAZEPAM Active [id number] DEGE, 11/20/ Pha rmac (lorazepam) 2 2021 y Data , 1 MG, Transac TABLET, tion ORAL, TEVA Service [place], 100 Facilit ea. BOTTLE y LORAZEPAM Active [id number] NATHANAEL, 11/18/ Pharmac (lorazepam) 2 2021 y Data , 1 MG, Transac TABLET, tion ORAL, TEVA Service [place], 100 Facilit ea. BOTTLE y LOSARTAN Active [id number] DEGE,SERA 09/12/ Pharmac POTASSIUM 1 2020 y Data (losartan Transac potassium), tion 50 MG, Service TABLET, Facilit ORAL, y XLCARE PHARMACE, 30 ea. BOTTLE LOSARTAN Active [id number] DEGE,SERA 12/14/ Pharmac POTASSIUM 2 2021 y Data (losartan Transac potassium), tion 50 MG, Service TABLET, Facilit ORAL, y XLCARE PHARMACE, 30 ea. BOTTLE LOSARTAN Active [id number] DEGE,03/14/ Pharmac POTASSIUM 2 2021 y Data (losartan Transac potassium), tion 50 MG, Service TABLET, Facilit ORAL, y XLCARE PHARMACE, 30 ea. BOTTLE LOSARTAN Active [id number] DEGE,06/15/ Pharmac POTASSIUM 1 2020 y Data (losartan Transac potassium), tion 50 MG, Service TABLET, Facilit ORAL, y XLCARE PHARMACE, 30 ea. BOTTLE METHYLPREDN Active [id number] KEYSHA, 10/29/ Pharmac ISOLONE 2 2021 y Data (methylpred Transac nisolone), tion 4 MG, TAB Service DS PK, Facilit ORAL, ZYDUS y PHARMACEU, 21 ea. DOSE-PACK METHYLPREDN Active [id number] NATHNAAEL, 08/17 3/ Pharmac ISOLONE 2020 y Data (methylpred Transac nisolone), tion 4 MG, TAB Service DS PK, Facilit ORAL, ZYDUS y PHARMACEU, 21 ea. DOSE-PACK METOPROLOL Active [id number] DEGE,11/07 / Pharmac SUCCINATE 2021 y Data (metoprolol Transac succinate), tion 50 MG, TAB Service ER 24H, Facilit ORAL, GSMS, y INC., 1000 ea. BOTTLE METOPROLOL Active [id number] DEGE,02/11 / Pharmac SUCCINATE 2021 y Data (metoprolol Transac succinate), tion 50 MG, TAB Service ER 24H, Facilit ORAL, GSMS, y INC., 1000 ea. BOTTLE METOPROLOL Active [id number] DEGE,05/02 / Pharmac SUCCINATE 2 2021 y Data (metoprolol Transac succinate), tion 50 MG, TAB Service ER 24H, Facilit ORAL, GSMS, y INC., 1000 ea. BOTTLE METOPROLOL Active [id number] DEGE,08/31/ Pharmac SUCCINATE 2020 y Data (metoprolol Transac succinate), tion 50 MG, TAB Service ER 24H, Facilit ORAL, GSMS, y INC., 1000 ea. BOTTLE NITROGLYCER Active [id number] DULAS, 03/06/ Pharmac IN 2 2021 y Data (nitroglyce Transac rin), 0.4 tion MG, TAB Service SUBL, Facilit SUBLINGUAL, y Dinnr, 25 ea. BOTTLE NITROGLYCER Active [id number] DULAS, 03/06/ Pharmac IN 2 2021 y Data (nitroglyce Transac rin), 0.4 tion MG, TAB Service SUBL, Facilit SUBLINGUAL, y Artsy., 25 ea. BOTTLE OXYCODONE Active [id number] DEGE, rmac HCL 2 2021 y Data (OXYCODONE Transac HCL), 10 tion MG, TABLET, Service ORAL, Facilit [employer], y INC., 100 ea. BOTTLE OXYCODONE Active [id number] DecemberLIAN 11/15/ Pharmac HCL 2 O, 2021 y Data (OXYCODONE Transac HCL), 10 tion MG, TABLET, Service ORAL, Facilit BORJAS y PHARMACE, 100 ea. BOTTLE OXYCODONE Active [id number] KEYSHA, 11/12/ Ph armac HCL 2 2021 y Data (OXYCODONE Transac HCL), 10 tion MG, TABLET, Service ORAL, Facilit BORJAS y PHARMACE, 100 ea. BOTTLE OXYCODONE Active [id number] DEGE, 09/14/ rmac HCL 1 2020 y Data (OXYCODONE Transac HCL), 5MG, tion TABLET, Service ORAL, Facilit MALLINKRT y PHARM, 100 ea. BOTTLE RABEPRAZOLE Active [id number] DEGE,SERA 09/16 0/ Pharmac SODIUM 2 2021 y Data (rabeprazol Transac e sodium), tion 20 MG, Service TABLET , Facilit ORAL, [employer], y INC., 500 ea. BOTTLE RABEPRAZOLE Active [id number] DEGE,SERA 01/16 1/ Pharmac SODIUM 2 2021 Data (rabeprazol Transac e sodium), tion 20 MG, Service TABLET , Facilit ORAL, GSMS, y INC., 500 ea. BOTTLE RABEPRAZOLE Active [id number] DEGE,SERA 3/ Pharmac SODIUM 1 2021 y Data (rabeprazol Transac e sodium), tion 20 MG, Service TABLET DR, Facilit ORAL, GSMS, y INC., 500 ea. BOTTLE RABEPRAZOLE Active [id number] DEGESERA 08/16 2/ Pharmac SODIUM 1 2020 y Data (rabeprazol Transac e sodium), tion 20 MG, Service TABLET DR, Facilit ORAL, [employer]MS, y INC., 500 ea. BOTTLE SPIRONOLACT Active [id number] DULAS, 03/06/ Pharmac ONE 2 2021 y Data (spironolac Transac tone), 25 tion MG, TABLET, Service ORAL, Facilit ACCORD y HEALTHCA, 500 ea. BOTTLE SPIRONOLACT Active [id number] DULAS,ZER / Pharmac ONE 2 HARIS 2021 y Data (spironolac Transac tone), 25 tion MG, TABLET, Service ORAL, Facilit RAFAELA y RANCH RI, 500 ea. BOTTLE SPIRONOLACT Active [id number] DULAS,ZER / Pharmac ONE 2 HARIS 2021 y Data (SPIRONOLAC Transac TONE), tion 25MG, Service TABLET, Facilit ORAL, y MYLAN, 100 ea. BOTTLE TRAMADOL Active [id number] [facility] 10/14/ Pharmac HCL 2 2021 y Data (TRAMADOL Transac HCL), 50MG, tion TABLET, Service ORAL, Facilit AMNEAL y PHARMACE, 1000 ea. BOTTLE TRAMADOL Active [id number] VIVIENNE, harmac HCL 2 2021 y Data (TRAMADOL Transac HCL), 50MG, tion TABLET, Service ORAL, Facilit AMNEAL y PHARMACE, 1000 ea. BOTTLE TRAMADOL Active [id number] MAZIN 10/05/ Pharmac HCL 2 2021 y Data (TRAMADOL Transac HCL), 50MG, tion TABLET, Service ORAL, Facilit AMNEAL y PHARMACE, 1000 ea. BOTTLE Immunizations Combined list of available immunizations from the Department of Defense and Veterans Affairs facilities. Immunization Series Date Administered Site Reaction Lot CVX Drug St atus Comments Source Given By Number Code Utility Hand COVID-19 03/17/ Arianna BLOOD Not COVID-1 9 DoD vaccine, 2020 Products, LP Given vacc ine, vector-nr, (JSN) vector-nr rS-Ad26, PF, , 0.5 mL rS-Ad26, PF, 0.5 mL Pneumococcal 08/04/ ALANIZOXANA () Not Pneumococ DoD conjugate PCV 2016 Given [place] 13 conjugate PCV 13 influenza, 06/30/ JOSÉ LUIS JUSTIN () Not in fluenza DoD injectable, 2015 Given , quadrivalent, inject abl preservative e, free quadrival ent, preservat ashley free Social History Combined list of available smoking, tobacco, and other social history from Department of Defense andVeterans Affairs facilities. Social History Type Response Date Comment Source This section is an empty social history section. DoD
--- OUTSIDE RECORDS SUMMARY | 2022-08-22 10:06 | XMS_ITS | Encounter Summary ---
:1950 Author Organization [facility] Address [address] [place] [address] Care Team Providers Name Role Phone Unknown, Provider Primary Care Provider Encounter Details Date Type Department Care Team Description 07/19/2021 Lab Requisition [facility] Outr Resulting Lab, Pathology & Laboratory Provider [facility] [address] [place] [address] Social History Tobacco Use Types Packs/Day Years Used Date Smoking Tobacco: Never Assessed Sex Assigned at Date Recorded Not on file documented as of this encounter Plan of Treatment Not on filedocumented as of this encounter Procedures Procedure Name Priority Date/Time Associated Diagnosis Comme nts HEPATITIS C AB W Routine 07/19/2021 10:05 Results for this REFLEX TO HCV RNA EDT procedure are in BY PCR the results section. documented in this encounter Results HEPATITIS C AB W REFLEX TO HCV RNA BY PCR (07/19/2021 10:05 EDT) Analysis Performed At Patho logist Time Signature Hep C Antibody Negative Negative 07/20/2021 [facility] 9:40 EDT CENTER LABORATORY SERVICES Specimen Anatomical Collection Method Collection Time Receive d Time (Source) Location / / Volume Laterality Blood VENOUS BLOOD / 07/19/2021 10:05 Unknown EDT 21:10 EDT Provider Outr Resulting Lab CHEMISTRY & BLOOD GAS ABRAN MCCOY Performing Organization Address City/State/ZIP Code Phon e Number [facility] [address] [place] [address] SERVICES documented in this encounter Visit Diagnoses Not on filedocumented in this encounter 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
--- OUTSIDE RECORDS SUMMARY | 2022-08-22 10:06 | XMS_ITS | Encounter Summary ---
:1950 Author Organization [facility] Address [address] [place] [address] Care Team Providers Name Role Phone Unknown, Provider Primary Care Provider Encounter Details Date Type Department Care Team Description 07/19/2021 Lab [facility]quisition [facility] Outr Resulting Lab, Pathology & Laboratory Provider [facility] [address] [place] [address] Social History Tobacco Use Types Packs/Day Years Used Date Smoking Tobacco: Never Assessed Sex Assigned at Date Recorded Not on file documented as of this encounter Plan of Treatment Not on filedocumented as of this encounter Procedures Procedure Name Priority Date/Time Associated Comments Diagnosis HIV 1/2 ANTIGEN AND Routine 07/19/2021 10:05 Resu lts for this ANTIBODY, 4TH EDT procedure are in GENERATION the results section. documented in this encounter Results HIV 1/2 ANTIGEN AND ANTIBODY, 4TH GENERATION (07/19/2021 10:05 EDT) [facility] Method Time Signature HIV 1 and 2 Negative Negative 07/20/2021 [facility] MEDICAL Antibody/p24 10:14 EDT CENTER Antigen, 4th LABORATORY Generation SERVICES Comment: If acute HIV-1 infection is suspected in a high risk ??patient, submit plasma specimen for HIV-1 RNA quantitation test. Fourth Generation assay performed on the Siemens Centaur. 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
--- OUTSIDE RECORDS SUMMARY | 2022-08-22 10:06 | XMS_ITS ---
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 76845128 9 unspecified behavior of bone, soft tissue, and skin Problem Piriformis syndrome G57.01 Active 857695141 of right side Problem Vasomotor rhinitis J30.0 Active 8 671940 Problem Gastroesophageal K21.9 Active 235 842160 reflux disease, unspecified whether esophagitis present Problem Gastroesophageal K21.9 Active reflux disease without esophagitis Problem Lumbar spondylosis M47.816 Active 2 34737285 ALLERGIES Substance Reaction Event Type Date Status Cortisone Injection Unknown Non Drug Allergy Jun, Acti ve metFORMIN HCl Unknown Drug Allergy Jun, Active Tape Unknown Drug Allergy Jun, Active DEPO-Medrol unsure Drug Allergy Jun, Active ENCOUNTERS Encounter Location Date Diagnosis N [address] Jun, Neoplasm of unspecified [facility], [address] beh avior of bone, soft Kelsie Buildi [address] [place] tissue, and skin D49.2 ; [place], [place] Actinic keratosi s L57.0 [id number] and History of m elanoma in situ Z86.006 Gastro[facility] [address] [facility] 29 Feb, [address] and Gastroesopha geal [place] reflux disease w [facility] [phone] esophagitis K21. 9 Gastroenterology [address] [facility] 07 Feb, [address] [place], [place] [id number] [facility] [address] [facility] January, [address] [place], [place] [id number] [facility] [address] [facility] January, Pir iformis syndrome of Road [address] right side G57.0 1 and S/P [place] lumbar discectom y Z98.890 [id number] Gastroenterology [address] [facility] Dec, Erosive gastr opathy K[address] and Gastroesopha geal [place] reflux disease w [facility] [phone] esophagitis K21. 9 [facility] [address] [facility] 31 Nov, 2021 S/P lumbar discectomy Road [address] Z98.890 [place], [place] [id number] [facility] [place] [address] [facility] 30 Nov, 2021 Low back pain, unspecified Road [address] M54.50 [place], [place] [id number] [facility] [address] [facility] 18 Nov, [address] [place], [place] [id number] [facility] [address] 16 Nov, 2021 S/P lumbar discectomy Road [address] Z98.890 and Low back pain, [place], [place] unspecified M54. 50 [id number] [facility] [address] [facility] 14 Nov, [address] [place], [place] [id number] [facility] [address] [facility] 01 Nov, [address] Sta [address] lumbar [address] discectomy Z98.8 90 [place], [place] [id number] [facility] [address] [facility] Oct, [address] Center [address] [place], [place] [id number] [facility] [address] [facility] Oct, S/P lumbar discectomy Road [address] Z98.890 [place], [place] [id number] [facility] [address] [facility] Oct, S/P lumbar discectomy Road [address] Z98.890 [place], [place] [id number] [facility] [address] [facility] Oct, [address] [place], [place] [id number] [facility] [address] [facility] Oct, S/P lumbar discectomy Road [address] Z98.890 and Geraldine iation of [place] lumbar intervert ebral disc [id number] with radiculopat hy M51.16 [facility] [address] [facility] Oct, [address] [place] [id number] [facility] [address] [facility] Oct, [address] [place] [id number] [facility] [address] [facility] Oct, S/P lumbar discectomy Road [address] Z98.890 [place], [place] [id number] [facility] [address] [facility] Oct, [address] [place] [id number] [facility] [address] [facility] Oct, Healthcare Op [address] [place] [id number] [address] Oct, [address] [place] [id number] [facility] [address] [facility] Oct, Pre -op testing Z01.[address] [place] [address] [facility] [address] [facility] Oct, Her niation of lumbar Road [address] intervertebral d isc with [place] radiculopathy M5 1.16 and [id number] Lumbar spondylos is M47.816 [facility] [address] [facility] Sep, [address] [place], [place] [id number] [facility] [address] [facility] Sep, [address] [place] [id number] [facility] [address] [facility] Sep, [address] [place] [id number] [facility] [address] [facility] 19 Sep, [address] and Gastroesopha geal [place] reflux disease w [facility] [id number] esophagitis K21. [address] 30 Aug, 2021 Erosive gas tropathy [address] [place], [place] and Gastroeso phageal [id number] reflux disease w ithout esophagitis K21. 9 Gastroenterology [address] [facility] 22 Aug, [address] [place], [place] [id number] [address] 17 Aug, 2021 Actinic ker atosis L57.0 [facility], [address] PO K[address]ie [address] [place], [place] [id number] Gastroenterology [address] [place] [address] 15 Aug, [address] Gastroesophageal reflux [place], [place] disease, unspeci fied [id number] whether esophagi tis present K21.[address] 18 Jun, 2021 [facility], [facility] 5 PO Kelsie Buildi [address] [place], [place] [id number] [address] Jun, History of melanoma in [facility], [address] PO sit u Z86.006 ; Actinic Kelsie Buildi [address] [facility] L57.0 and [place], [place] Vasomotor rhinit is J30.[id number] Jul, [facility], [address]els[address] [place], [place] [id number] [address] Jul, [place], [place] [address] Jul, Neoplasm of unspecified [facility], [address] PO beh avior of bone, soft Kelsie Buildi [address] [facility], and skin D49.2 ; [place], [place] History of melan mile in [id number] situ Z86.006 and Actinic keratosis L57.[address] Jun, [facility], [address] Kels[address] [place], [place] [id number] IMMUNIZATIONS No Known Immunizations SOCIAL HISTORY Qualifiers Date Never Smoker REASON FOR REFERRAL FUNCTIONAL STATUS PLAN OF CARE Activity Details Follow Up 6 Months Reason:recheck skin history melenoma in situ Future Appointment Provider Name:Marlon Rosales keith, 2023-01-04 01:30:00 PM, [address] [place] [address] Drive, [address], [address], [place], [place], [id number], Future Test BASIC METABOLIC PROFILE 2021 200 Future Test CBC, WITH AUTO DIFF 20211017 Future Test EKG 20211017 Future/Pending Procedure EGD [id number] VITAL SIGNS Height 6 ft 4 in in 2022-07-06 Height 6 ft 4 in in 2022-03-14 Height 6 ft 4 in in 2022-02-07 Height 6 ft 4 in in 2022-01-02 Height 6 ft 4 in in 2021-11-29 Height 6 ft 4 in in 2021-11-14 Height 6 ft 4 in in 2021-10-31 Height 6 ft 4 in in 2021-10-17 Height 6 ft 4 in in 2021-10-04 Height 6 ft 4 in in 2021-09-01 Height 6 ft 4 in in 2021-08-30 Height 6 ft 4 in in 2021-06-30 Height 6 ft 4 in in 2020-07-18 Weight 218 lbs 2022-07-06 Weight 236.2 lbs 2022-03-14 Weight 246 lb 8 oz lbs 2021-11-29 Weight 245 lb 7 oz lbs 2021-11-14 Weight 233 lbs 2021-10-31 Weight 233 lbs 2021-10-17 Weight 224 lbs 2021-10-04 Weight 230 lbs 2021-09-01 Weight 239.6 lbs 2021-08-30 Weight 240 lbs 2021-06-30 Weight 250 lbs 2020-07-18 Temperature 98.2 degrees Fahrenheit 2022-03-14 Temperature 96.3 degrees Fahrenheit 2022-01-02 Temperature 97.5 degrees Fahrenheit 2021-11-29 Temperature 97.6 degrees Fahrenheit 2021-11-14 Temperature 98.1 degrees Fahrenheit 2021-10-17 Temperature 98.2 degrees Fahrenheit 2021-10-04 Temperature 97.1 degrees Fahrenheit 2021-08-30 Heart Rate 92 /min 2022-07-06 Heart Rate 77 /min 2022-03-14 Heart Rate 68 /min 2022-02-07 Heart Rate 72 /min 2022-01-02 Heart Rate 74 /min 2021-11-29 Heart Rate 73 /min 2021-11-14 Heart Rate 78 /min 2021-10-31 Heart Rate 86 /min 2021-10-17 Heart Rate 68 /min 2021-10-04 Heart Rate 67 /min 2021-09-01 Heart Rate 66 /min 2021-08-30 Heart Rate 72 /min 2021-06-30 Oximetry 96 2022-07-06 Oximetry 95 2022-03-14 Oximetry 97 2022-02-07 Oximetry 95 2022-01-02 Oximetry 97 2021-11-29 Oximetry 98 2021-11-14 Oximetry 97 2021-10-31 Oximetry 97 2021-10-17 Oximetry 97 2021-10-04 Oximetry 99 2021-09-01 Oximetry 99 2021-08-30 Oximetry 99 2021-06-30 Respiratory Rate 18 /min 2021-11-29 Respiratory Rate 20 /min 2021-11-14 Respiratory Rate 16 /min 2021-10-17 BMI 26.53 kg/m2 2022-07-06 BMI 28.75 kg/m2 2022-03-14 BMI 30.00 kg/m2 2021-11-29 BMI 29.87 kg/m2 2021-11-14 BMI 28.36 kg/m2 2021-10-31 BMI 28.36 kg/m2 2021-10-17 BMI 27.26 kg/m2 2021-10-04 BMI 27.99 kg/m2 2021-09-01 BMI 29.16 kg/m2 2021-08-30 BMI 29.21 kg/m2 2021-06-30 BMI 30.43 kg/m2 2020-07-18 Blood pressure systolic 122 mm Hg 2022-07-06 Blood pressure diastolic 78 mm Hg 2022-07-06 MEDICATIONS Medication Instructions Dosage Frequency Start End Duration Statu s Date Date hydrochlorothiazide Orally Once a 1 tablet 24h 30 da y(s) Not-Antonio 12.5 mg day ing Spironolactone 25mg Acti ve Amaryl 4 MG Orally twice a 1 tablet 12h Acti ve day with breakfast or the first main meal of the day Plavix 75 MG Orally Once a 1 tablet 24h 30 day(s) Ac tive day Bydureon 2 MG Subcutaneous as directed A ctive once weekly Jardiance 10 MG Orally Once a 1 tablet 24h 30 day(s) Active day Aspirin 81 MG Orally Once a 1 tablet 24h 30 day(s) A ctive day FreeStyle Lite Meter use as Act ashley directed Aciphex 20 MG Orally Once a 1 tablet 24h 30 day(s) A ctive day Gabapentin 300 MG Orally 3 times 1 capsule 8h Nov, da y(s) Not-Antonio a day 2021 ing FreeStyle Lancets Active Glimepiride 4 MG Orally Once a 1 tablet 24h 30 day(s ) Not-Antonio day with ing breakfast or the first main meal of the day CeleBREX 100 MG Orally Twice a 1 capsule 12h Active day with food furosemide 20 mg 1 tab 14 days Active Losartan Orally Once a 1 tablet 24h 30 day(s) Active Potassium-HCTZ day 50-12.5 MG Atorvastatin Calcium Orally Once a 1 tablet 24h 30 d ay(s) Active 20 MG day RABEprazole Sodium 20 Orally twice a 1 tablet 12h Not-Antonio MG day ing FreeStyle [place] as directed Ac tive Lite Test Strips Nitroglycerin 0.4 MG as directed Active Metoprolol Succinate Orally Once a 1 tablet 24h 30 d ay(s) Active ER 50 MG day Lexapro 10 MG Orally Once a 1 tablet 24h 30 day(s) A ctive day PROCEDURES Procedure Date Ordered Result Body Site EGD BIOPSY SINGLE/MULTIPLE Sep 14, 2021 RESULTS Name Result Date Reference Range COVID 19 [facility] PCR (Cepheid) 2021-10-23 AUTHORIZED ONLY SARS-CoV-2, PCR NOT DETECTED NOT DETECTED COV 4PLX COMMENT This test has been authorized by FDA under an EUA for use by authorized laboratories. False negative results may occur if virus is present at levels below the analytical limit of detection. XR LUMBAR SPINE 1 VIEW 2021-10-23 BASIC METABOLIC PROFILE 2021-10-17 SODIUM 139 134-143 POTASSIUM 4.3 3.5-5.1 CHLORIDE 100 98-111 CO2 27 22-32 CALCIUM 9.1 8.9-10.3 GLUCOSE 177 74-106 BUN 20 8-26 CREATININE 0.77 0.61-1.24 EGFR >60 EGFR CMT Multiply calculated EGFR by 1.025 for Afro-americans. A/GAP 12.0 3.0-12.0 OSMOLARITY 285 275-295 B/CR 26.0 8.0-20.0 CBC, WITH AUTO DIFF 2021-10-17 WBC 6.5 4.8-10.8 RBC 5.21 4.70-6.10 HGB 16.4 14.0-18.0 HCT 48.6 42.0-52.0 MCV 93.3 80.0-94.0 MCH 31.5 27.0-31.0 MCHC 33.7 32.0-37.0 RDW-CV 12.1 11.5-14.5 PLT 216 130-400 MPV 11.6 7.4-10.4 NE% 70.6 42.2-75.2 LY% 19.5 20.5-51.1 MO% 7.4 1.7-9.3 EO% 2.0 0.9-2.9 BA% 0.3 0.0-0.8 NE# 4.6 1.4-6.5 LY# 1.3 1.2-3.4 MO# 0.5 0.1-0.6 EO# 0.1 0.0-0.2 BA# 0.0 0.0-0.2 SURGICAL PATH 2021-09-14 REASON FOR VISIT ENT 1 year skin check, GI fu gerd esophagitis, GI fu gerd esophagitis, telemed request for 02/21 appt,follow up, PT follow up, [facility] fu meds/leg cramps, GI-3mo f/u folllow up erosive gastropathy, refill gabapentin, Cyclobenzaprine RF/new instructions, med not working, [facility] - POV #3, form/signature, NCSCPOV #2, pain med, resend oxycodone-PT CALLED AGAIN, Pain medication refill/one pill left// Needs PDMP//PT CALLED AGAIN 11/09, med side effect , [facility]- POV #1, ? protocols, PT?, Post op Rx, Medication clarification , [facility]- Discectomy, preop phone call , DR OTOOLE PRE OP (PACKET NOT COMPLETE), [facility]- SURGICAL CONSULT, 10/17 pre op , 10/17 pre op, Surgical Coordinating , GI- EGD 2 wk f/u, GI- EGD, Medical records (FYI), ENT Skin Lesion f/u, GI-GERD, Refills, ENT skin lesion check, chart preload, efudex, ENT ROUGE PRESSER skin lesions, PFP Shave Excision, PFP, New Patient, Chart preload Insurance Providers [facility] Health Member Patient Patient Patient Patient Patient Subscriber Subscriber Subscriber Group Insurance Plan Plan Plan Plan ID Relationship Address Phone Name Date of ID Name Date of No Type Insurance Insurance Insurance Coverage to Subscriber Address Phone Name Dates MEDICARE [phone] MEDICARE self Fuad [id number] [facility] [id number] [facility] - [address] [facility]/[place] - self Fuad [id number] DO NOT EBONI Hauser [facility] BILL ([place] (Write Off) [place] [phone] Off) MEDICARE [phone] MEDICARE self Fuad [id number] PART A [id number] PART A [place] [facility] [place] [address] WPS [phone] WPS self Fuad [id number] JIGAR [place] [phone] [facility] [id number]
--- OUTSIDE RECORDS SUMMARY | 2022-08-22 10:06 | XMS_ITS | Encounter Summary ---
:1950 Author Organization [facility] Address [address] [place] [address] Care Team Providers Name Role Phone Unknown, Provider Primary Care Provider Encounter Details Date Type Department Care Team Description 09/15/2021 Lab Requisition [facility] Francisco Schrader Heartburn Pathology & Laboratory MD Yfn [address] [place] [phone] (Wo rk) Social History Tobacco Use Types Packs/Day Years Used Date Smoking Tobacco: Never Assessed Sex Assigned at Date Recorded Not on file documented as of this encounter Plan of Treatment Not on filedocumented as of this encounter Procedures Procedure Name Priority Date/Time Associated Diagnosis Comme nts SURGICAL PATHOLOGY Today 09/14/2021 8:48 EST Heartburn Re sults for this procedure are i n the results section. documented in this encounter Results SURGICAL PATHOLOGY (09/14/2021 8:48 EST) Component Value Ref Test Analysis Performed At [facility] Range Method Time Signature Note to The following 09/20/2021 [facility] Patient pathology results 10:34 EST CENTER have been LABORATORY interpreted by SERVICES your pathologist and may be available to you before your health provider has had the opportunity to review them. Please allow time for your provider to receive these results and explore management options, if applicable. Final A. STOMACH, ANTRUM, BIOPSY: 09/20/2021 [facility] MED[facility] Diagnosis - Antral mucosa with reactive (chemical) gastropathy. 10:34 EST CENTER - Negative for Helicobacter pylori. LABORATORY - See comment. SERVICES B. STOMACH, BODY, BIOPSY: - Fundic mucosa with mild parietal cell hyperplasia. - Negative for Helicobacter pylori on H&E stained sections. Diagnosis ANTIBODY(CLONE)(BLOCK):RESULT 09/20/2021 [facility] Comment H pylori (Rabbit Monoclonal (SP48), [place]) (A1): Negativ e 10:34 [facility] NOTE: One or more of the re agents used in immunoperoxidase testing in this case may not have been cleared or approved by the U.S. Food and Drug Administration (FDA). The FDA has determined that such cl SERVICES earance or approval is not n ecessary. These tests are used for clinical purposes. They should not be regarded as investigational or for research. These reagents' performance characteristics have been de termined by [facility] and/or by the referring laboratory. The positive and negative controls worked appropriately. If immunoperoxidase staining has been performed on alcoh ol fixed cytology specimens, which has not been fully validated, the assays should be interpreted with caution and correlated with clinical data. This laboratory is certified under the Clinical Laborato ry Improvement Amendments of 1988 (CLIA-88) as qualified to perform high complexity clinical laboratory testing. Attestation There was 09/20/2021 [facility] Elect ronically significant 10:34 [facility] signed b y [place] resident/fellow LABORATORY Kristie Sultana MD involvement in the SERVICES o n 09/20/2021 at diagnostic 1034 evaluation of this case. By the signature below, the attending physician certifies that they have personally conducted a gross and/or microscopic examination of the described specimens and rendered or confirmed the above diagnosis. Clinical History of GERD, gastric erythema; clini [place] diagnosis code: R12, R21.9 09/20/2021 [facility] History 10:34 [facility] SERVICES Gross A. 09/20/2021 [facility] Description Received in formalin arianna d with proper patient identification (initials W, D) and gastric antrum is a single ryan tissue (0.5 x 0.2 x 0.1 cm). Submitted intact in A1. 10:34 [facility] B. SERVICES Received in formalin arianna d with proper patient identification (initials W, D) and gastric body are two ryan-brown tissues (0.3 x 0.1 x 0.1 cm and 0.4 x 0.1 x 0.1 cm). Submitted entirely in B1. PIOTR FULLER([facility]) 09/18/2021 8:48 Resident/Marlin Rand MD 09/20/2021 [facility] Suleman SCHUMACHER w: 10:34 [facility] SERVICES Performing Lab [facility] 09/20/2021 [facility] Suleman SCHUMACHER 10:34 [facility] CENTER LABORATORY SERVICES Scanned Images 09/20/2021 [facility] 10:34 [facility] SERVICES Specimen Anatomical Collection Method Collection Time Receive d Time (Source) Location / / Volume Laterality Tissue ENTIRE STOMACH / 09/14/2021 8:48 09/15/20 8:51 Unknown EST EST Tissue specimen ENTIRE STOMACH / 09/14/2021 8:48 09/15 8:51 (specimen) Unknown EST EST Francisco Schrader MD PATHOLOGY ORDERABLES Performing Organization Address City/State/ZIP Code Phon e Number [facility] [address] [place] [address] SERVICES documented in this encounter Visit Diagnoses Diagnosis Heartburn documented in this encounter Care Teams Cyber Defense Forensics Analyst Relationship Specialty Start Date End Date Unknown, Provider, PCP - General 08/16/21 documented as of this encounter
--- OUTSIDE RECORDS SUMMARY | 2022-08-22 10:06 | XMS_ITS | Clinical Summary ---
:1950 Author Organization [facility] Address [address] [place] [address] Care Team Providers Name Role Phone Unknown, Provider Primary Care Provider Social History Tobacco Use Types Packs/Day Years Used Date Smoking Tobacco: Never Assessed Sex Assigned at Date Recorded Not on file Plan of Treatment Health Maintenance Due Date Last Done Comments COVID-19 Vaccine (#1) 1950 Fall Risk Screening 2017 Hepatitis C Screen Completed 07/19/2021 Insurance Payer Benefit Plan Subscriber ID Effective Phone Address Typ e / Group Dates MEDICARE MEDICARE A/B [id number] 2017-Prese [address] [place] [facility] [place] [address] FOR [id number] 2021-Pre [phone] [address] [employer] sent [address] [place] [address] Fuad Pendleton Personal/Family Self 1950 [address] (Home) [place] [address] HelderFuad saleem Personal/Family Self 1950 [address]) [place] [address] Care Teams Engravings Polisher Relationship Specialty Start Date End Date Unknown, Provider, PCP - General 08/16/21
--- OUTSIDE RECORDS SUMMARY | 2022-08-22 10:06 | XMS_ITS | Encounter Summary ---
:1950 Author Organization [facility] Address [address] [place] [address] Care Team Providers Name Role Phone Unknown, Provider Primary Care Provider Encounter Details Date Type Department Care Team Description 12/06/2020 Lab Requisition [facility] Outr Resulting Lab, Pathology & Laboratory Provider [facility] [address] [phone] Social History Tobacco Use Types Packs/Day Years Used Date Smoking Tobacco: Never Assessed Sex Assigned at Date Recorded Not on file documented as of this encounter Plan of Treatment Not on filedocumented as of this encounter Procedures Procedure Name Priority Date/Time Associated Diagnosis Comme nts COVID-19 TEST [facility] Today 12/05/2020 15:45 LAB PCR EDT COVID-19 TESTING Routine 12/05/2020 15:45 Results for this EDT procedure are i n the results section. documented in this encounter Results COVID-19 TEST [facility] PCR (12/05/2020 15:45 EDT) Specimen Anatomical Location Collection Method Collection Time Received Time (Source) / Laterality / Volume Swab ENTIRE NASOPHARYNX 12/05/2020 15:45 12/06 / Unknown EDT 15:45 EDT Provider Outr Resulting Lab MICROBIOLOGY - GENERAL ORD ERABLES Performing Organization Address City/State/ZIP Code Phon e Number [facility] [address] [place] [address] SERVICES (ABNORMAL) COVID-19 TESTING (12/05/2020 15:45 EDT) [facility] Method Time Signature COVID-19 Positive Negative 12/07/2020 [facility] rt-PCR Result (AA) 13:53 EDT [facility] Comment: This test has not been FDA cleared or ap proved. This test has been authorized by FDA under an EUA for use by authorized laboratories. This test has been authorized only for detection of nucleic acid fro m 2018-nCoV, not for any other viruses o r pathogens. This test is only authorized for the duration of the declaration that circumstances exist justifying the authorization of emergency use of in vitro d iagnostic tests for detection and/or maría elena gnosis of 2019-nCoV under section 564(b)(1) of Act, 21 U.S.C ?? 360bbb-3(b) (1), unless the authorization is terminated or revoked sooner. This test was developed and its performa nce characteristics determined by [facility]. It has not been cleared or approved by the US Food and Drug Administration. FDA does not require this test to go through premarket FDA review. This test is used for clinical purposes. It should not be regarded as investigational or for research. This laboratory is certified under the Clinical Laboratory Improvement Amendm ents (CLIA) as qualified to perform high complexity clinical laboratory testing. This test is based on the CDC COVID-19 E mergency Use Authorization (EUA) assay, with minor modification as defined by the FDA Performed on the Remark 7 Pro RT-PCR System. Performing Lab [facility] Lab 12/07/2020 13:53 EDT [facility] SERVICES Specimen Anatomical Collection Method Collection Time Receive d Time (Source) Location / / Volume Laterality Swab 12/05/2020 15:45 12/06/2020 EDT 15:45 EDT Provider Outr Resulting Lab MICROBIOLOGY - GENERAL ORD ERABLES Performing Organization Address City/State/ZIP Code Phon e Number [facility] [address] [place] [address] SERVICES documented in this encounter Visit Diagnoses Not on filedocumented in this encounter Additional Health Concerns Infection Onset Date Last Indicated Resolved Time COVID-19 12/05/2020 12/05/2020 01/04/2021 22:15 EDT documented as of this encounter Care Teams Vice President Of Software Development Relationship Specialty Start Date End Date Unknown, Provider, PCP - General 08/16/21 documented as of this encounter
== END 2022-09-15 23:59 | disposition home or self-care (01) ==
LOC: CR 10:00
PROVIDERS: PCP Family Medicine; Visit Provider Internal Medicine Cardiovascular Disease
DX: I25.2 Old myocardial infarction (principal); Z95.5 Presence of coronary angioplasty implant and graft; I50.20 Unspecified systolic (congestive) heart failure
CPT/HCPCS: S9472

== ENCOUNTER 2022-10-16 09:58 | Outpatient (RCR) | payer SELFPAY ==
[2022-09-18 10:03] VITALS: BP 151/82; PULSE 68
[2022-09-20 09:47] VITALS: BP 145/83; PULSE 70
[2022-09-27 10:50] VITALS: BP 146/85; PULSE 68
[2022-10-02 10:00] VITALS: BP 162/84; PULSE 64
[2022-10-04 09:43] VITALS: BP 143/78; PULSE 66
[2022-10-09 11:06] VITALS: BP 157/85; PULSE 65
[2022-10-16 10:18] VITALS: BP 132/80; PULSE 68
== END 2022-10-16 23:59 | disposition home or self-care (01) ==
LOC: CR 09:58
PROVIDERS: PCP Family Medicine; Visit Provider Internal Medicine Cardiovascular Disease
DX: R69 Illness, unspecified (principal)

== ENCOUNTER 2022-11-07 16:29 | Emergency (ER) | payer MEDICARE, OTHER, SELFPAY ==
[2022-11-07] VITALS (8 sets, daily range): BP systolic 140–159; BP diastolic 78–80; PULSE 70–76; RESP 15–23; TEMP 37.1–37.2; O2SAT 94–95
--- NOTE | 2022-11-07 16:45 | DI.CT_ITS ---
Exam(s) CT HEAD FACIAL WO EXAM: CT HEAD FACIAL WO CLINICAL HISTORY: left brown hematoma, on thinners, r/o bleed. TECHNIQUE: Imaging Protocol: Axial computed tomography images with coronal and sagittal reformatted images were created and reviewed COMPARISON: No exams were available for comparison FINDINGS: The examination is limited due to patient motion artifact. CT Head: Ventricles and Extra axial spaces: Normal in size and morphology for the patient's age. Hemorrhage: None. Cerebral parenchyma: There is no acute territorial infarct. There are areas of decreased attenuation in the white matter most consistent with small vessel ischemic disease. Midline shift: None. Brainstem/Cerebellum: Normal. Calvarium: Normal. Visualized Paranasal sinuses/Mastoids: There is opacification of several ethmoid air cells and mucosa l thickening in the sphenoid sinuses. There is mild mucosal thickening in the left maxillary sinus. The remaining visualized paranasal sinuses and mastoid air cells are clear. Soft Tissues: There is a subcutaneous hematoma overlying the left forehead. There is mild left perio rbital soft tissue swelling. CT Face: Facial Bones: No definite fracture is noted in facial bones. Sinuses and Mastoids: There is mucosal thickening seen in the maxillary sinuses, ethmoid air cells a nd sphenoid sinuses. No fluid levels are present. The mastoid air cells are clear. Globes, extraocular muscles, optic nerves and retrobulbar fat: Normal. Upper aerodigestive tract: Normal. Mandible and bilateral temporomandibular joints: Normal. Soft tissues: Normal. IMPRESSION: 1. No acute intracranial process. 2. Left frontal scalp hematoma and mild left periorbital soft tissue swelling. 3. No acute facial fracture. 4. Mild paranasal sinusitis. RADIATION DOSE DELIVERED: 2,795.27mGy.cm Total DLP DATA REPOSITORY: All CT scans at this facility are submitted to the National Radiology Data Registry (NRDR) Dose Index Registry (DIR) with the [employer] (A[employer]). RADIATION OPTIMIZATION: All CT scans at this facility use at least one of these dose optimization te chniques: automated exposure control; mA and/or kV adjustment per patient size (includes targeted exa ms where dose is matched to clinical indication); or iterative reconstruction.
[2022-11-07] MEDS: Normal Saline 500 ML IV (17:14)
[2022-11-07 17:24] LABS: BE (Venous) 1 mmol/L (-2-3); HCO3 (Venous) 27 mmol/L (23-28); O2 Sat (Venous) 75 %; TCO2 (Venous) 24 mmol/L (24-29); pCO2 (Venous) 47 mmHg (41-51); pH (Venous) 7.36 (7.31-7.41); pO2 (Venous) 44 mmHg
[2022-11-07 17:36] LABS: Abs Immature Grans 0.02 10^3/uL (0.0-0.06); Absolute Basophil Count 0.02 10^3/uL (0.0-0.2); Absolute Lymphocyte Count 1.03 10^3/uL (1.2-3.4); Absolute Monocyte Count 0.56 10^3/uL (0.1-0.8); Absolute Neutrophil Count 3.54 10^3/uL (1.2-6.7); Basophils % 0.4; Eosinophils % 3.7; HCT 46.5 % (40.0-50.0); HGB 15.6 g/dL (13.5-17.5); Immature Grans % 0.4; Lymphocytes % 19.2; MCH 32.4 pg (27.0-33.0); MCHC 33.5 % (32.0-36.0); MCV 97 fL (80-95); MPV 11.2 fL (8.0-11.0); Monocytes % 10.4; Neutrophils % 65.9; Platelet Count 186 10^3/uL (130-400); RBC 4.81 10^6/uL (4.36-5.78); RDW 12.1 % (11.8-14.1); RDW-SD 43.4 fL; WBC 5.37 10^3/uL (4.4-10.8)
[2022-11-07 17:43] LABS: INR 0.9 (0.9-1.1); Prothrombin Time 9.5 sec (9.3-11.0)
[2022-11-07 17:52] LABS: ALT 68 U/L (16-63); AST 48 U/L (15-37); Albumin 3.9 g/dL (3.4-5.0); Alkaline Phosphatase 114 U/L (46-116); Anion Gap 10.2 mmol/L (3-11); BUN 14 mg/dL (7-18); Bilirubin, Total 0.3 mg/dL (0.2-1.0); CO2 27.8 mmol/L (21.0-32.0); CREATININE 0.9 mg/dL (0.70-1.30); Calcium 8.9 mg/dL (8.5-10.1); Chloride 101 mmol/L (98-107); ETHANOL BLOOD 125.4 mg/dL (<10); Estimated GFR 91.88 (mL/min/1.73m2); Glucose 255 mg/dL (74-106); Potassium 3.9 mmol/L (3.5-5.1); Sodium 139 mmol/L (136-145); TSH (W/Ref FT4) 0.35 uIU/mL (0.36-3.74); Total Protein 7.3 g/dL (6.4-8.2)
--- NOTE | 2022-11-07 18:05 | DI.VRAD_ITS ---
PROCEDURE INFORMATION: Exam: CT Head Without Contrast Exam date and time: 11/07/2022 17:32 Age: 72 years old Clinical indication: Other: Left brown hematoma on thinners, R/O bleed TECHNIQUE: Imaging protocol: Computed tomography of the head without contrast. Radiation optimization: All CT scans at this facility use at least one of these dose optimization techniques: automated exposure control; mA and/or kV adjustment per patient size (includes targeted exams where dose is matched to clinical indication); or iterative reconstruction. COMPARISON: No relevant prior studies available. FINDINGS: Brain: Subcentimeter right lentiform nuclei hypodensity, age-indeterminate lacunar infarct versus perivascular space. Atrophy and chronic appearing white matter changes. No edema or hemorrhage. Cerebral ventricles: No ventriculomegaly. Paranasal sinuses: Please see below. Mastoid air cells: No mastoid effusion. Bones/joints: No acute fracture. Soft tissues: Left frontal scalp swelling, small cephalohematoma. IMPRESSION: 1. No acute intracranial findings. 2. Left frontal scalp swelling, small cephalohematoma. PROCEDURE INFORMATION: Exam: CT Maxillofacial Without Contrast Exam date and time: 11/07/2022 17:32 Age: 72 years old Clinical indication: Other: Left brown hematoma on thinners, R/O bleed TECHNIQUE: Imaging protocol: Computed tomography of the face without contrast. Radiation optimization: All CT scans at this facility use at least one of these dose optimization techniques: automated exposure control; mA and/or kV adjustment per patient size (includes targeted exams where dose is matched to clinical indication); or iterative reconstruction. COMPARISON: No relevant prior studies available. FINDINGS: Orbital cavities: Orbits are normal. Globes are unremarkable. Bones/joints: No acute fracture or subluxation. Paranasal sinuses: Moderate mucosal thickening in the paranasal sinuses without air-fluid levels. Soft tissues: Left frontal scalp swelling associated with a small cephalohematoma. IMPRESSION: 1. No acute bony pathology. 2. Sinus disease. Dictated and Authenticated by: Enedina Burks MD. Ordering:TIANA Snell MD
[2022-11-07 18:11] LABS: FREE T4 0.93 ng/dL (0.76-1.46)
--- NOTE | 2022-11-07 18:11 | ED.GENADUL_ITS ---
Discharge Plan Disposition Patient Disposition: Home Discharge Details Clinical Impression: Acute confusion, Elevated ETOH level Primary Care Provider: Navin Souza ED Provider: Channing Alfaro Home Meds and New Rx's Prescriptions: Continued doxycycline hyclate 100 mg capsule 100 mg PO BID Qty: 14 0RF Rx Instructions: Avoid sun exposure. Take with meal. Take 1 pill every 12 hours x 7 days fluorouracil [Efudex] 5 % cream 1 applic topical BID cyclobenzaprine 10 mg tablet 10 tab PO TID PRN PRN Patient Comments: TAKE ONE TABLET BY MOUTH EVERY 8 HOURS NEEDED atorvastatin 80 mg Tablet 80 mg PO QPM clopidogrel [Plavix] 75 mg Tablet 75 mg PO DAILY nitroglycerin 0.4 mg Tablet, Sublingual 0.4 mg SUBLINGUAL Q5M PRN Rx Instructions: do not exceed 3 doses per episode furosemide [Lasix] 20 mg Tablet 20 mg PO DAILY Jardiance 10 mg Tablet 10 mg PO DAILY spironolactone 25 mg Tablet 12.5 mg PO DAILY losartan 50 mg Tablet 50 mg PO DAILY metoprolol succinate [Toprol XL] 50 mg Tablet Extended Release 24 Hr 50 mg PO DAILY rabeprazole [AcipHex] 20 mg Tablet,Delayed Release (Dr/Ec) 20 mg PO DAILY lorazepam 1 mg Tablet 1 mg PO BID PRN aspirin 81 mg Tablet,Chewable 81 mg PO DAILY Discharge Instructions Instructions: Fall Prevention (ED) Additional Instructions: At this time your work-up is reassuring, there is no evidence of significant electrolyte abnormality, renal dysfunction, or bleeding in your brain. However your alcohol level is still elevated. Please do your best to moderate your alcohol consumption. It is important to be aware of the fact that if you do have falls while you are on the blood thinners that you are currently taking it could lead to a significant bleed in your brain which would be life-threatening. Please consider this as you consume alcohol. It would be our recommendations that you stop consuming alcohol. If you notice any worsening of your symptoms, or any new symptoms such as vomiting, diarrhea, fever, chills, shortness of breath, chest pain, numbness, weakness, or fainting , please return immediately to the emergency department for reevaluation. Please follow up with your primary care provider as soon as possible for reassessment and reevaluation. As always, it was a pleasure participating in your medical care today. 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 Patient states that for the last year he has been sleepwalking at night more than normal. He states he is injured because of this. This morning he woke up and had a bruise over his left brow. He does not know how he got it. States that at work today he was confronted by his boss and was told that he was acting a little bit differently than normal. Patient was then brought to the emergency department for further assessment with his son at bedside. Patient does admit to drinking alcohol regularly. He drinks some after work at night at 11 PM and also having a single white claw at lunch. He denies any excessive or change in use of his regular alcohol intake. He does take aspirin and Plavix daily. He denies any other known falls or trauma. He denies any headache, vision changes, neck pain, chest pain, shortness of breath, vomiting, diarrhea. No other complaints or modifying factors at this time. Physical exam demonstrates a well-appearing male, he does have a bruise over his left superior orbit, but no focal neurologic deficits or other abnormalities whatsoever. Son who is at bedside states that his father is less cranky than normal but otherwise feels that he is at his baseline. Work-up was performed, VBG is unremarkable, thyroid function stable, no white count bandemia or left shift. However patient's alcohol is elevated at 125, do feel that intoxication correlates well clinically with his current very mild symptomatology a more subdued state. CT scan is negative for acute process per virtual radiology. Symptoms are clinically inconsistent with stroke at this time. I did have a long discussion with the patient and his son who is at bedside about the risk of having a brain bleed while on blood thinners especially after falls or trauma. Patient understands this. At this time, after work-up patient is otherwise clinically stable. We did recommend avoiding alcohol while at work, or before he goes to bed. Discussed red flags for which to return. I have extensively reviewed the treatment plan and discharge instructions with the patient and their family. I have addressed all patient concerns at this time. The patient and family was made aware of what symptoms to monitor for that would warrant a return to the emergency department. Discussed the plan with the patient and family, they demonstrate verbal understanding and agreement with our assessment and plan at this time. The documentation in this chart was dictated using [email or web address] dictation software. Please excuse any dictation errors. FINDINGS: Brain: Subcentimeter right lentiform nuclei hypodensity, age-indeterminate lacunar infarct versus perivascular space. Atrophy and chronic appearing white matter changes. No edema or hemorrhage. Cerebral ventricles: No ventriculomegaly. Paranasal sinuses: Please see below. Mastoid air cells: No mastoid effusion. Bones/joints: No acute fracture. Soft tissues: Left frontal scalp swelling, small cephalohematoma. IMPRESSION: 1. No acute intracranial findings. 2. Left frontal scalp swelling, small cephalohematoma. . FINDINGS: Orbital cavities: Orbits are normal. Globes are unremarkable. Bones/joints: No acute fracture or subluxation. Paranasal sinuses: Moderate mucosal thickening in the paranasal sinuses without air-fluid levels. Soft tissues: Left frontal scalp swelling associated with a small c ephalohematoma. IMPRESSION: 1. No acute bony pathology. 2. Sinus disease. Thank you for allowing us to participate in the care of your patient. Dictated and Authenticated by: Enedina Burks MD 11/07/2022 6:04 PM Eastern Time ([place] & [place]) HPI General Date/Time Provider Initiated Documentation: 11/07/22 16:45 . 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 Patient states that for the last year he has been sleepwalking at night more than normal. He states he is injured because of this. This morning he woke up and had a bruise over his left brow. He does not know how he got it. States that at work today he was confronted by his boss and was told that he was acting a little bit differently than normal. Patient was then brought to the emergency department for further assessment with his son at bedside. Patient does admit to drinking alcohol regularly. He drinks some after work at night at 11 PM and also having a single white claw at lunch. He denies any excessive or change in use of his regular alcohol intake. He does take aspirin and Plavix daily. He denies any other known falls or trauma. He denies any headache, vision changes, neck pain, chest pain, shortness of breath, vomiting, diarrhea. No other complaints or modifying factors at this time. Related Data Home Medications Medication Instructions Recorded Confirmed aspirin 81 mg chewable tablet 81 mg PO DAILY 03/28/21 11/07/22 cyclobenzaprine 10 mg tablet 10 tab PO TID PRN PRN 02/19/22 11/07/22 atorvastatin 80 mg tablet 80 mg PO QPM 04/08/22 11/07/22 clopidogrel 75 mg tablet (Plavix) 75 mg PO DAILY 04/08/22 11/07/22 empagliflozin 10 mg tablet 10 mg PO DAILY 04/08/22 11/07/22 (Jardiance) furosemide 20 mg tablet (Lasix) 20 mg PO DAILY 04/08/22 11/07/22 lorazepam 1 mg tablet 1 mg PO BID PRN 04/08/22 11/07/22 losartan 50 mg tablet 50 mg PO DAILY 04/08/22 11/07/22 metoprolol succinate 50 mg 50 mg PO DAILY 04/08/22 11/07/22 tablet,extended release 24 hr (Toprol XL) nitroglycerin 0.4 mg sublingual 0.4 mg sublingual Q5M PRN 04/08/22 11/07/22 tablet rabeprazole 20 mg tablet,delayed 20 mg PO DAILY 04/08/22 11/07/22 release (AcipHex) spironolactone 25 mg tablet 12.5 mg PO DAILY 04/08/22 11/07/22 doxycycline hyclate 100 mg capsule 100 mg PO BID #14 caps 06/04/22 11/07/22 fluorouracil 5 % topical cream 1 applic topical BID 11/07/22 11/07/22 (Efudex) Previous Rx's Medication Instructions Recorded doxycycline hyclate 100 mg capsule 100 mg PO BID #14 caps 06/04/22 Allergies Allergy/AdvReac Type Severity Reaction Status Date / Time adhesive tape Allergy Verified 11/07/22 16:48 cortisone Allergy Verified 11/07/22 16:48 General Stated Complaint: AMS/LOC ANDREA: 2 Review of Systems All systems reviewed & are unremarkable except as noted in HPI and below PFSH All Active Problems Acute confusion (Acute) Elevated ETOH level (Acute) Acute cholecystitis (Acute) Coronary atherosclerosis of [place] coronary artery (Acute) Ischemic cardiomyopathy (Acute) TTE with LVEF 17% with apical wall motion abnormalities [place] echocardi[place] [facility] [place] mellitus (Chronic) ADD (attention deficit disorder) (Acute) Hematuria (Acute) Insomnia (Acute) Actinic keratosis (Acute) Medical History Acute bursitis of left shoulder GERD (gastroesophageal reflux disease) Hypercholesterolemia Hypertension Neoplasm of unspecified behavior of bone, soft tissue, and skin Non-ST elevation DC (NSTEMI) Surgical History H/O esophagogastroduodenoscopy S/P lumbar spine operation (~10/2021) [facility] Dr. Antonio; L2-L3 S/P TKR (total knee replacement) (~10/2020) s/p bilateral TKA; Left 09/04, Right 11/06 S/P tonsillectomy (02/27/22) Status post angioplasty with stent 100% LAD ostial lesion, 99% LAD proximal lesion, 90% proximal left circumflex, 90% stenosis ostial segment of ramus, RCA free of disease. Intervention summary stent to ostial segment of LAD stent placed to proximal LAD required dilatation and stenting of D1 branch. Status post angioplasty of first and second diagonal branches and thrombectomy of proximal left circumflex and angioplasty of ostial ramus branch. Social History Smoking/Tobacco Use Status: Former Tobacco Use Smoking risk assessment performed?: Yes Alcohol Intake: current Alcohol Intake frequency: 0-2 drinks per day Alcohol type: beer Drug use: Never Substance use type: does not use Current gender identity: male Do you feel safe at home: Yes Do you feel safe in your relationship?: Yes Exam Narrative Exam Narrative: 1.Const: Well-nourished, Well-developed, appearing stated age 2.Eyes: PERRL, no conjunctival injection, and symmetrical lids. 3.ENT: Atraumatic external nose and ears. Moist MM. Neck: Symmetric, trachea midline, No thyromegaly. There is no evidence of raccoon eyes, garcia sign, CSF rhinorrhea, mastoid tenderness, cranial crepitus, hemotympanum, exophthalmos, or hyphema. The patient does demonstrate evidence of a bruise around his left superior orbit. No significant tenderness. No other signs of trauma. Patient demonstrates intact dentition with no signs of tooth avulsion or fracture, no signs of jaw deformity, no evidence of a LeFort's fracture, with an intact palate, nose and orbital region. There is no evidence of a nasal septal hematoma. No proptosis. Jaw closes symmetrically. Airway is clear. 4.CVS: +S1/S2, No murmurs or gallops. Peripheral pulses 2+ and equal in all extremities. Brisk capillary refill in all extremities. 5.RESP: Unlabored respiratory effort. Clear to auscultation bilaterally. No wheezes rales or rhonchi 6.GI: Soft, Nontender/Nondistended, No hepatosplenomegaly. No guarding or r ebound. 7.MSK: Normocephalic/Atraumatic, Extremities w/o deformity or ttp No cyanosis or clubbing, Normal movement of all extremities 8.Skin: Warm, Dry. No rashes or lesions. 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 Sensation grossly intact, no focal neurologic deficits. All 6 cardinal planes of vision are fully intact. No evidence of rotatory or vertical nystagmus. The patient demonstrated a normal [id number], good dexterity. There was no evidence of dysdiadochokinesia. Patient was able to ambulate without difficulty. There was no wide-based gait. Romberg testing was normal. [id number]-pb-[id number] testing was normal. Sensation was intact bilaterally as well as muscle strength bilaterally for all extremities. Patient was able to verbalize butter cup with no slurring, or miss pronunciation. No midline tenderness to palpation over the CTLS spine. Normal ROM in flexion, extension, side bend, and rotation. Patient has +5 out of 5 strength in the lower extremities in dorsiflexion and plantarflexion, knee flexion and extension, hip flexion and extension. Normal strength for dorsiflexion and plantar flexion of the great toe bilaterally. There is +2 over 2 dorsalis pedis pulses bilaterally. There is normal sensation to the skin with light touch at the foot, knee, and hip. Normal saddle sensation. Good sensation over the deep sural nerve area bilaterally. Rectal exam demonstrates good rectal tone with excellent taco-rectal sensation. Reflexes are +2 over 4 in the patellar reflex bilaterally. +5 out of 5 strength in the medial, ulnar, radial nerve distribution bilaterally in the hands as well as intact light touch sensation to these dermatomes on the hands 10.Psych: (AAO) x3. Appropriate mood and affect Course Vital Signs Vital signs: Vital Signs Temperature 37.1 C 11/07/22 16:31 Pulse 73 11/07/22 16:31 Respiratory Rate 20 11/07/22 16:31 Blood Pressure 159/80 H 11/07/22 16:31 Pulse Oximetry 94 11/07/22 16:31 Temperature 37.2 C 11/07/22 17:54 Temperature Source Tympanic 11/07/22 17:54 Pulse 73 11/07/22 17:54 Respiratory Rate 20 11/07/22 17:54 Respiratory Effort Normal 11/07/22 17:53 Respiratory Depth Normal 11/07/22 16:52 Respiratory Pattern Normal 11/07/22 16:52 Blood Pressure 146/78 H 11/07/22 17:54 Blood Pressure Position Sitting 11/07/22 16:31 Pulse Oximetry 95 11/07/22 17:54 Oxygen Delivery Method Room Air 11/07/22 17:54 Oxygen Flow Rate 0 11/07/22 17:54 Pain Level 0 11/07/22 17:54 Lab/Test Results Lab/Test Results: Laboratory Tests Range/Units 11/07/22 11/07/22 11/07/22 16:55 16:55 16:55 WBC (4.4-10.8) 10^3/uL 5.37 RBC (4.36-5.78) 10^6/uL 4.81 Hgb (13.5-17.5) g/dL 15.6 Hct (40.0-50.0) % 46.5 MCV (80-95) fL 97 H MCH (27.0-33.0) pg 32.4 MCHC (32.0-36.0) % 33.5 RDW (11.8-14.1) % 12.1 Plt Count (130-400) 10^3/uL 186 MPV (8.0-11.0) fL 11.2 H Immature Gran % 0.4 Neutrophils % 65.9 Lymphocytes % 19.2 Monocytes % 10.4 Eosinophils % 3.7 Basophils % 0.4 Nucleated RBC % (0.0-0.3) % 0.0 Absolute Neutrophils (1.2-6.7) 10^3/uL 3.54 Absolute Lymphocytes (1.2-3.4) 10^3/uL 1.03 L Absolute Monocytes (0.1-0.8) 10^3/uL 0.56 Absolute Eosinophils (0.0-0.7) 10^3/uL 0.20 Absolute Basophils (0.0-0.2) 10^3/uL 0.02 PT (9.3-11.0) sec INR (0.9-1.1) APTT (21.5-31.9) sec VBG pH (7.31-7.41) 7.36 VBG pCO2 (41-51) mmHg 47 VBG pO2 mmHg 44 VBG HCO3 (23-28) mmol/L 27 VBG Total CO2 (24-29) mmol/L 24 VBG O2 Saturation % 75 VBG Base Excess (-2-3) mmol/L 1 Sodium (136-145) mmol/L 139 Potassium (3.5-5.1) mmol/L 3.9 Chloride (98-107) mmol/L 101 Carbon Dioxide (21.0-32.0) mmol/L 27.8 Anion Gap (3-11) mmol/L 10.2 BUN (7-18) mg/dL 14 Creatinine (0.70-1.30) mg/dL 0.9 Est GFR (CKD-EPI 2020) (mL/min/1.73m2) 91.88 Glucose (74-106) mg/dL 255 H Calcium (8.5-10.1) mg/dL 8.9 Total Bilirubin (0.2-1.0) mg/dL 0.3 AST (15-37) U/L 48 H ALT (16-63) U/L 68 H Alkaline Phosphatase (46-116) U/L 114 Total Protein (6.4-8.2) g/dL 7.3 Albumin (3.4-5.0) g/dL 3.9 TSH (0.36-3.74) uIU/mL 0.35 L Ethyl Alcohol (<10) mg/dL 125.4 H Range/Units 11/07/22 16:55 WBC (4.4-10.8) 10^3/uL RBC (4.36-5.78) 10^6/uL Hgb (13.5-17.5) g/dL Hct (40.0-50.0) % MCV (80-95) fL MCH (27.0-33.0) pg MCHC (32.0-36.0) % RDW (11.8-14.1) % Plt Count (130-400) 10^3/uL MPV (8.0-11.0) fL Immature Gran % Neutrophils % Lymphocytes % Monocytes % Eosinophils % Basophils % Nucleated RBC % (0.0-0.3) % Absolute Neutrophils (1.2-6.7) 10^3/uL Absolute Lymphocytes (1.2-3.4) 10^3/uL Absolute Monocytes (0.1-0.8) 10^3/uL Absolute Eosinophils (0.0-0.7) 10^3/uL Absolute Basophils (0.0-0.2) 10^3/uL PT (9.3-11.0) sec 9.5 INR (0.9-1.1) 0.9 APTT (21.5-31.9) sec 27.0 VBG pH (7.31-7.41) VBG pCO2 (41-51) mmHg VBG pO2 mmHg VBG HCO3 (23-28) mmol/L VBG Total CO2 (24-29) mmol/L VBG O2 Saturation % VBG Base Excess (-2-3) mmol/L Sodium (136-145) mmol/L Potassium (3.5-5.1) mmol/L Chloride (98-107) mmol/L Carbon Dioxide (21.0-32.0) mmol/L Anion Gap (3-11) mmol/L BUN (7-18) mg/dL Creatinine (0.70-1.30) mg/dL Est GFR (CKD-EPI 2020) (mL/min/1.73m2) Glucose (74-106) mg/dL Calcium (8.5-10.1) mg/dL Total Bilirubin (0.2-1.0) mg/dL AST (15-37) U/L ALT (16-63) U/L Alkaline Phosphatase (46-116) U/L Total Protein (6.4-8.2) g/dL Albumin (3.4-5.0) g/dL TSH (0.36-3.74) uIU/mL Ethyl Alcohol (<10) mg/dL
--- NOTE | 2022-11-08 07:30 | NUR.NOTE ---
Nursing Note: Accessed chart for [facility] billing purposes.
== END 2022-11-07 18:32 | disposition home or self-care (01) ==
PROVIDERS: Emergency Provider Student in an Organized Health Care Education/Training Program; PCP Family Medicine
DX: R41.0 Disorientation, unspecified (principal); R78.0 Finding of alcohol in blood; S00.12XA Contusion of left eyelid and periocular area, initial encounter; I25.10 Atherosclerotic heart disease of native coronary artery without angina pectoris; E11.9 Type 2 diabetes mellitus without complications; I10 Essential (primary) hypertension; Z79.82 Long term (current) use of aspirin; Z79.01 Long term (current) use of anticoagulants; X58.XXXA Exposure to other specified factors, initial encounter; Y90.6 Blood alcohol level of 120-199 mg/100 ml; Z79.899 Other long term (current) drug therapy
CPT/HCPCS: 36416; 80053; 82805; 82962; 96360; 99284; 70450; 70486; 80320; 81003; 84439; 84443; 85025; 85610; 85730

== ENCOUNTER 2023-03-23 12:40 | Emergency (ER) | payer MEDICARE, OTHER, SELFPAY ==
[2023-03-23 12:45] VITALS: BP 155/72; PULSE 75; RESP 20; TEMP 36.8; O2SAT 92
--- NOTE | 2023-03-23 13:47 | DI.CT_ITS ---
Exam(s) CT HEAD CERV SPINE FACIAL WO EXAM: CT HEAD CERV SPINE FACIAL WO CLINICAL HISTORY: Rickie's eyes. TECHNIQUE: Imaging Protocol: Axial computed tomography images with coronal and sagittal reformatted images were created and reviewed COMPARISON: CT CT HEAD FACIAL WO from 11/07/2022 FINDINGS: CT Head: Exam is limited by motion. Ventricles and Extra axial spaces: Normal in size and morphology for the patient's age. Hemorrhage: There is a large acute hemorrhage within the parenchyma of the inferior right frontal lob e. Difficult surrounding edema. Approximate measurements 5 x 3 x 1.5 cm. Subarachnoid hemorrhage e xtending along the right sylvian fissure and frontal and temporal sulci. There is a small left front al subdural. Thickening along the falx could represent additional sub dural hemorrhage. Hematoma. Also probable small left temporal subdural hematoma. Midline shift: None. Brainstem/Cerebellum: Normal. Calvarium: Nondisplaced fracture in the left occipital bone at the skull base extending superior to t hrough the left parietal region. Limited by motion. Visualized Paranasal sinuses/Mastoids: Opacification of few ethmoid sinuses and partial opacification of the left sphenoid sinus. Soft Tissues: Unremarkable. CT Face: Facial Bones: No acute fracture is noted in facial bones. Old nasal fractures. Sinuses and Mastoids: Mucous retention within the maxillary, multiple ethmoid and sphenoid sinuses. Mastoid air cells clear. Globes, extraocular muscles, optic nerves and retrobulbar fat: Normal. Upper aerodigestive tract: Normal. Mandible and bilateral temporomandibular joints: Normal. Soft tissues: Normal. CT cervical spine: No evidence of fracture. Degenerative disc changes and facet degenerative changes. No pre preverteb ral soft tissue swelling. Airway is intact. 1.5 centimeter nodule noted in the inferior left lobe o f the thyroid. Ultrasound could be considered. IMPRESSION: 1. Head CT: Large acute right frontal intraparenchymal hemorrhage. Right subarachnoid hemorrhage. L eft frontal subdural hemorrhage. Nondisplaced left occipital parietal fracture. 2. No acute facial fracture. 3. No acute abnormality in the cervical spine. RADIATION DOSE DELIVERED: 2,286.33mGy.cm Total DLP DATA REPOSITORY: All CT scans at this facility are submitted to the National Radiology Data Registry (NRDR) Dose Index Registry (DIR) with the [employer] ([employer]). RADIATION OPTIMIZATION: All CT scans at this facility use at least one of these dose optimization te chniques: automated exposure control; mA and/or kV adjustment per patient size (includes targeted exa ms where dose is matched to clinical indication); or iterative reconstruction.
--- NOTE | 2023-03-23 13:56 | W.ED.GENAD ---
Discharge Plan Disposition Patient Disposition: Transfer-Acute Inpatient Care Specific Acute Inpt Facility: [facility] Condition: Critical Discharge Details Clinical Impression: Basal skull fracture, Fracture of occipital bone of skull with loss of consciousness, Intracranial hemorrhage, Acute subdural hematoma, Subarachnoid bleed, Alcohol abuse Primary Care Provider: Navin Souza ED Provider: Lois Vanegas Home Meds and New Rx's Prescriptions: No Action doxycycline hyclate 100 mg capsule 100 mg PO BID Qty: 14 0RF Rx Instructions: Avoid sun exposure. Take with meal. Take 1 pill every 12 hours x 7 days fluorouracil [Efudex] 5 % cream 1 applic topical BID cyclobenzaprine 10 mg tablet 10 tab PO TID PRN PRN Patient Comments: TAKE ONE TABLET BY MOUTH EVERY 8 HOURS NEEDED atorvastatin 80 mg Tablet 80 mg PO QPM clopidogrel [Plavix] 75 mg Tablet 75 mg PO DAILY nitroglycerin 0.4 mg Tablet, Sublingual 0.4 mg SUBLINGUAL Q5M PRN Rx Instructions: do not exceed 3 doses per episode furosemide [Lasix] 20 mg Tablet 20 mg PO DAILY Jardiance 10 mg Tablet 10 mg PO DAILY spironolactone 25 mg Tablet 12.5 mg PO DAILY losartan 50 mg Tablet 50 mg PO DAILY metoprolol succinate [Toprol XL] 50 mg Tablet Extended Release 24 Hr 50 mg PO DAILY rabeprazole [AcipHex] 20 mg Tablet,Delayed Release (Dr/Ec) 20 mg PO DAILY lorazepam 1 mg Tablet 1 mg PO BID PRN aspirin 81 mg Tablet,Chewable 81 mg PO DAILY Medical Decision Making This is a 73-year-old male on Plavix and aspirin who has a history of heavy alcohol use daily and a history of sleepwalking who presents with bilateral perioral orbital ecchymoses which could be consistent with raccoon's eyes and a basilar skull fracture. He has no hemotympanum otorrhea or rhinorrhea garcia sign or raccoon's eyes. He is alert and oriented x4 with a GCS of 15 and cannot give me any history of trauma. This could be because he is amnestic or was under the influence of alcohol or he could have been sleepwalking and fell. My plan is to obtain blood work and I have ordered Dilaudid for pain. Shortly after receiving it he did not notice any improvement in his headache. I have also ordered blood work and CTs of the head face C-spine chest abdomen and pelvis to rule out any additional trauma since he does not recall falling. My plan will be to consult neurosurgery/and or trauma at [facility] after ancillary services are resulted Differential Diagnosis Differential Diagnosis: Basilar skull fracture, multiple trauma, alcohol abuse, abnl electolytes Medical Records Medical records reviewed: Yes I reviewed the patient's medical records. Imaging Data Radiologic Study: Attestation: I personally reviewed and interpreted this imaging study as follows: Imaging: CT Scan (chest without contrast) Radiologist's impression: No evidence for acute posttraumatic abnormality. Radiologic Study #2: Attestation: I personally reviewed and interpreted this imaging study as follows: Imaging: CT Scan My impression: intracranial hemorrhage Radiologist's impression: FINDINGS: Brain: There is a large acute RIGHT inferior frontal parenchymal hematoma with surrounding vasogenic edema. The hematoma measures 5.1 by 3.1 x 1.5 cm in AP, craniocaudal, and transverse dimensions, respectively. Acute subarachnoid hemorrhage is identified in the RIGHT sylvian fissure and within the RIGHT frontal and temporal sulci. There is a 3 mm acute subdural hematoma in the anterior interhemispheric fissure. The LEFT tentorium appears thicker than the RIGHT which may reflect a thin acute subdural hematoma. There is a 3 mm thick RIGHT frontal/pterional acute subdural hematoma. There is a small LEFT frontal subdural hematoma. There is no midline shift. Cerebral atrophy. Intracranial arterial calcification is present. Cerebral ventricles: No hydrocephalus. Paranasal sinuses: Moderate paranasal sinus inflammatory change predominantly involving the LEFT sphenoid air cell. No air-fluid levels. Mastoid air cells: The tympanomastoid air cells are normally aerated as visualized. GILLIAN BRANCH Preliminary Radiology Report Page 2 of 3 Orbital cavities: Orbits are grossly unremarkable. Bones/joints: Patient motion artifact limits evaluation of the bones. There is a nondisplaced fracture of the LEFT occipital bone. Motion artifact limits evaluation of the calvarium. Soft tissues: See Brain finding. IMPRESSION: 1. RIGHT frontal acute parenchymal hematoma. Subdural and subarachnoid acute hemorrhage as discussed. 2. LEFT occipital nondisplaced skull fracture. HPI General Date/Time Provider Initiated Documentation: 03/23/23 13:45. History of Present Illness with intensity rated at 9. Quality is described as aching and constant, and is localized to the head and face. and it has been constant. Other factors that worsen symptoms (Light) . HPI Narrative: time seen was 1400 in bed 10 and then bed 8. The patient is a 73-year-old male with history of coronary artery disease who is on aspirin and Plavix after cardiac stent placement. He states he did not have a myocardial infarction prior to his stenting. He also tells me he has a history of sleepwalking and is being treated with medication. He states that 3 days ago on March 21 he noted a gradually increasing headache. The next day he was unable to go to work. 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 Today he had worsening of his headache and noted discoloration around his eyes. He denies any trauma but believes he could have fallen while sleepwalking. His headache is severe and aggravated by light. It is bilateral and located throughout the entire head. He denies any vomiting or blurry vision. He denies any chest pain or shortness of breath. He cannot recall any falls. He denies any chest or abdominal pain. He denies any hematuria. He does have a history of prior lumbar surgery. He denies any fevers or chills. He denies any dizziness but does not feel as though his cognition is at baseline and asked a family member to bring him into the emergency department today. No previous similar episodes. Related Data Home Medications Medication Instructions Recorded Confirmed aspirin 81 mg chewable tablet 81 mg PO DAILY 03/28/21 11/07/22 cyclobenzaprine 10 mg tablet 10 tab PO TID PRN PRN 02/19/22 11/07/22 atorvastatin 80 mg tablet 80 mg PO QPM 04/08/22 03/23/23 clopidogrel 75 mg tablet (Plavix) 75 mg PO DAILY 04/08/22 03/23/23 empagliflozin 10 mg tablet 10 mg PO DAILY 04/08/22 11/07/22 (Jardiance) furosemide 20 mg tablet (Lasix) 20 mg PO DAILY 04/08/22 03/23/23 lorazepam 1 mg tablet 1 mg PO BID PRN 04/08/22 03/23/23 losartan 50 mg tablet 50 mg PO DAILY 04/08/22 03/23/23 metoprolol succinate 50 mg 50 mg PO DAILY 04/08/22 03/23/23 tablet,extended release 24 hr (Toprol XL) nitroglycerin 0.4 mg sublingual 0.4 mg sublingual Q5M PRN 04/08/22 03/23/23 tablet rabeprazole 20 mg tablet,delayed 20 mg PO DAILY 04/08/22 03/23/23 release (AcipHex) spironolactone 25 mg tablet 12.5 mg PO DAILY 04/08/22 03/23/23 doxycycline hyclate 100 mg capsule 100 mg PO BID #14 caps 06/04/22 11/07/22 fluorouracil 5 % topical cream 1 applic topical BID 11/07/22 03/23/23 (Efudex) Previous Rx's Medication Instructions Recorded doxycycline hyclate 100 mg capsule 100 mg PO BID #14 caps 06/04/22 Allergies Allergy/AdvReac Type Severity Reaction Status Date / Time adhesive tape Allergy Verified 03/23/23 13:37 cortisone Allergy Verified 03/23/23 13:37 General Stated Complaint: FacialProb ANDREA: 3 Review of Systems Constitutional Constitutional: Reports as per HPI, Reports daytime sleepiness, Denies fever(s), Reports headache(s) and Reports lethargy Eyes Eyes: Denies blurry vision, Denies change in vision, Denies diplopia, Denies loss of vision, Reports requires corrective lenses and Reports photophobia Comments: Discoloration around her eyes ENT Ears, Nose, Mouth, and Throat: Reports headache(s) Comments: Complaining of sinus pain and discoloration around the eyes Cardiovascular Cardiovascular: Reports as per HPI, Denies chest pain and Denies dyspnea Respiratory Respiratory: Denies dyspnea Gastrointestinal Gastrointestinal: Denies abdominal pain Neurologic Neurologic: Reports headache(s) and Denies loss of vision Psychiatric Comments: The patient admits to drinking alcohol daily. He states that he drinks between 6 and 8 drinks of hard cider daily. He has never stopped drinking but does not think he is an alcoholic Hematologic/Lymphatic Hematologic/Lymphatic: Reports as per HPI Comments: The patient is on Plavix and aspirin PFSH All Active Problems (Updated 03/23/23 @ 15:41 by Lois Vanegas MD) Basal skull fracture (Acute) Fracture of occipital bone of skull with loss of consciousness (Acute) Intracranial hemorrhage (Acute) Acute subdural hematoma (Acute) Subarachnoid bleed (Acute) Alcohol abuse (Chronic) Acute cholecystitis (Acute) Coronary atherosclerosis of [place] coronary artery (Acute) Ischemic cardiomyopathy (Acute) TTE with LVEF 17% with apical wall motion abnormalities per echocardiogram 02/27/2022 [facility] [place] Diabetes mellitus (Chronic) ADD (attention deficit disorder) (Acute) Hematuria (Acute) Insomnia (Acute) Actinic keratosis (Acute) Medical History Acute bursitis of left shoulder GERD (gastroesophageal reflux disease) Hypercholesterolemia Hypertension Neoplasm of unspecified behavior of bone, soft tissue, and skin Non-ST elevation [place] (NSTEMI) Surgical History H/O esophagogastroduodenoscopy S/P lumbar spine operation (~10/2021) [facility] Dr. Antonio; L2-L3 S/P TKR (total knee replacement) (~10/2020) s/p bilateral TKA; Left 09/04, Right 11/06 S/P tonsillectomy (02/27/22) Status post angioplasty with stent 100% LAD ostial lesion, 99% LAD proximal lesion, 90% proximal left circumflex, 90% stenosis ostial segment of ramus, RCA free of disease. Intervention summary stent to ostial segment of LAD stent placed to proximal LAD required dilatation and stenting of D1 branch. Status post angioplasty of first and second diagonal branches and thrombectomy of proximal left circumflex and angioplasty of ostial ramus branch. Social History Smoking/Tobacco Use Status: Former Tobacco Use Smoking risk assessment performed?: Yes Alcohol Intake: current Alcohol Intake frequency: 0-2 drinks per day Alcohol type: beer Drug use: Never Substance use type: does not use Current gender identity: male Do you feel safe at home: Yes Do you feel safe in your relationship?: Yes Exam Const General: cooperative Orientation: alert, awake and oriented x3 Other: The patient has dried blood on the back of his head but no active bleeding. He is alert and oriented x4. He has ecchymoses over both eyelids and along the nasal bridge on the left and a small amount below the orbit on the left HENMT Head: no palpable skull fracture, normocephalic and other (There is dried blood in the superficial abrasion without evidence of infect) Ears: hearing grossly normal bilaterally Mouth: moist mucous membranes (Slightly dry mucous membranes) Throat: posterior oropharynx normal Eyes EOM: No nystagmus Other: The patient has ecchymoses over both eyes as above. In the left eye the ecchymosis extends below the orbit consistent with raccoons eyes and possibly a basilar skull fracture Neck Neck: normal visual inspection, full ROM and trachea midline Lymphatic: no lymphadenopathy noted Chest Chest: normal inspection of the chest and normal palpation of entire chest wall Resp Effort & Inspection: normal respiratory effort, able to speak in complete sentences, not labored, no pursed lip breathing, no respiratory distress, no stridor, not tachypneic, no tracheal deviation and no use of accessory muscles Auscultation: clear to auscultation bilaterally and no rubs Tactile Fremitus: tactile fremitus absent Cardio Jugular venous pressure: no JVD Palpation: normal PMI Rate: regular rate Rhythm: regular rhythm Heart Sounds: S1 normal, S2 normal, normal, physiologic split S2, no gallops, no murmurs and no rubs Bruits: no abdominal aortic bruits GI Inspection: normal to inspection and no abdominal wall ecchymosis Palpation: soft and no hepatosplenomegaly Auscultation: normal bowel sounds Other: Pelvis is stable to compression Back/Spine/Pelvis Back: no CVA tenderness Cervical Spine: cervical ROM normal, No cervical muscular tenderness, No cervical spinal tenderness, No step off deformity and No cervical ROM abnormal Thoracic/Lumbar Spine: other Skin Other: Ecchymoses of both eyelids and on the left extending below the orbit, consistent with raccoon's eyes Neuro General: patient alert, patient awake, patient oriented x3 and other (Gait is slightly wide-based and slightly slower than anticipated) Cranial Nerves: CN's II-XI intact bilaterally, PERRL, EOM intact bilaterally, no nystagmus, facial strength normal, tongue midline and no nystagmus Speech: speech normal Gait: wide-based Motor: muscle tone normal throughout Sensory Exam: no sensory deficits noted DTR's: Rt Biceps: 1+, Lt Biceps: 1+, Rt Brachioradialis: 1+, Lt Brachioradialis: 1+, Rt Patellar: 1+, Lt Patellar: 1+, Rt Ankle: 1+ and Lt Ankle: 1+ Plantar Reflexes: Equivocal: bilateral Left pupil size: 0.3 cm Right pupil size: 0.3 cm Other: Unable to visualize optic disks Extrem Other: The patient has well-healed surgical scar over the right knee. He has some minor abrasions and bruising over both lower extremities. He has a small subungual hematoma of the left great toe Psych Appearance: grossly normal Speech and Movement: speech and movement normal Mood: congruent mood Affect: normal affect Attitude: cooperative Thought Process: normal Thought Content: normal Insight: insight good Judgment: judgment good Course I have called the [facility] transfer center and given report on the CT findings of intracranial hemorrhage in the right frontal lobe. This is my interpretation and we are still awaiting a formal reading but will order SPECT right patient thank you for doing Consultations Consultation #1: Dr. Porter trauma service who has excepted the patient. We are awaiting air transport Vital Signs Vital signs: Vital Signs Temperature 36.8 C 03/23/23 12:45 Pulse 75 03/23/23 12:45 Respiratory Rate 20 03/23/23 12:45 Blood Pressure 155/72 H 03/23/23 12:45 Pulse Oximetry 92 03/23/23 12:45 Temperature 36.8 C 03/23/23 12:45 Temperature Source Oral 03/23/23 12:45 Pulse 75 03/23/23 12:45 Respiratory Rate 20 03/23/23 12:45 Respiratory Effort Normal, Non-Labored 03/23/23 12:49 Blood Pressure 155/72 H 03/23/23 12:45 Blood Pressure Position Sitting 03/23/23 12:45 Pulse Oximetry 92 03/23/23 12:45 Oxygen Delivery Method Room Air 03/23/23 12:45 Oxygen Flow Rate 0 03/23/23 12:45 Critical Care Time Critical Care Time Critical Care Time: Yes (Time spent at the bedside, reviewing CTs, consulting radiology and trauma) Total Critical Care Time: 50
[2023-03-23] MEDS: HYDROmorphone 2 MG/ML SYR 1 MG IVP ×2 (14:15→15:50)
[2023-03-23] MEDS: Lactated Ringers 1,000 ML 150 ML IV (14:16)
[2023-03-23 14:18] LABS: Abs Immature Grans 0.02 10^3/uL (0.0-0.06); Absolute Basophil Count 0.02 10^3/uL (0.0-0.2); Absolute Eosinophil Count 0.01 10^3/uL (0.0-0.7); Absolute Lymphocyte Count 0.91 10^3/uL (1.2-3.4); Absolute Monocyte Count 0.68 10^3/uL (0.1-0.8); Absolute Neutrophil Count 5.88 10^3/uL (1.2-6.7); Basophils % 0.3; Eosinophils % 0.1; HCT 45.3 % (40.0-50.0); Immature Grans % 0.3; Lymphocytes % 12.1; MCH 33.1 pg (27.0-33.0); MCHC 35.3 % (32.0-36.0); MCV 94 fL (80-95); MPV 10.7 fL (8.0-11.0); Neutrophils % 78.2; Platelet Count 180 10^3/uL (130-400); RBC 4.83 10^6/uL (4.36-5.78); RDW 11.9 % (11.8-14.1); WBC 7.52 10^3/uL (4.4-10.8)
[2023-03-23 14:32] LABS: PTT Activated 28.1 sec (21.5-31.9); Prothrombin Time 9.9 sec (9.3-11.0)
[2023-03-23 14:38] LABS: ALT 24 U/L (16-63); AST 18 U/L (15-37); Alkaline Phosphatase 84 U/L (46-116); Anion Gap 12.4 mmol/L (3-11); BUN 15 mg/dL (7-18); Bilirubin, Direct 0.2 mg/dL (0.0-0.2); Bilirubin, Total 1.1 mg/dL (0.2-1.0); CO2 25.6 mmol/L (21.0-32.0); CREATININE 0.9 mg/dL (0.70-1.30); Calcium 9.1 mg/dL (8.5-10.1); Chloride 99 mmol/L (98-107); Estimated GFR 91.31 (mL/min/1.73m2); Glucose 182 mg/dL (74-106); Lipase 12 U/L (16-77); Potassium 4.2 mmol/L (3.5-5.1); Sodium 137 mmol/L (136-145); Total Protein 7.2 g/dL (6.4-8.2); Troponin I < 50 ng/L (<or=60)
--- NOTE | 2023-03-23 15:23 | DI.VRAD_ITS ---
Addendum created by Evelin Estrada MD on 03/23/2023 3:27:24 PM EDT: THIS REPORT CONTAINS FINDINGS THAT MAY BE CRITICAL TO PATIENT CARE. The findings were verbally communicated by me via telephone conference with KAUSHIK AGUILAR at 3:27 PM EDT on 03/23/2023. The findings were acknowledged and understood. Initial report created on 03/23/2023 3:21:37 PM EDT: PROCEDURE INFORMATION: Exam: CT Head Without Contrast Exam date and time: 03/23/2023 2:50 PM Age: 73 years old Clinical indication: Other: Fall w/o remembering; Other: Racoon eyes TECHNIQUE: Imaging protocol: Computed tomography of the head without contrast. COMPARISON: CT HEAD FACIAL WO 11/07/2022 5:32 PM FINDINGS: Brain: There is a large acute RIGHT inferior frontal parenchymal hematoma with surrounding vasogenic edema. The hematoma measures 5.1 by 3.1 x 1.5 cm in AP, craniocaudal, and transverse dimensions, respectively. Acute subarachnoid hemorrhage is identified in the RIGHT sylvian fissure and within the RIGHT frontal and temporal sulci. There is a 3 mm acute subdural hematoma in the anterior interhemispheric fissure. The LEFT tentorium appears thicker than the RIGHT which may reflect a thin acute subdural hematoma. There is a 3 mm thick RIGHT frontal/pterional acute subdural hematoma. There is a small LEFT frontal subdural hematoma. There is no midline shift. Cerebral atrophy. Intracranial arterial calcification is present. Cerebral ventricles: No hydrocephalus. Paranasal sinuses: Moderate paranasal sinus inflammatory change predominantly involving the LEFT sphenoid air cell. No air-fluid levels. Mastoid air cells: The tympanomastoid air cells are normally aerated as visualized. Orbital cavities: Orbits are grossly unremarkable. Bones/joints: Patient motion artifact limits evaluation of the bones. There is a nondisplaced fracture of the LEFT occipital bone. Motion artifact limits evaluation of the calvarium. Soft tissues: See Brain finding. IMPRESSION: 1. RIGHT frontal acute parenchymal hematoma. Subdural and subarachnoid acute hemorrhage as discussed. 2. LEFT occipital nondisplaced skull fracture. PROCEDURE INFORMATION: Exam: CT Maxillofacial Without Contrast Exam date and time: 03/23/2023 2:50 PM Age: 73 years old Clinical indication: Other: Fall w/o remembering; Other: Racoon eyes TECHNIQUE: Imaging protocol: Computed tomography of the face without contrast. COMPARISON: CT HEAD FACIAL WO 11/07/2022 5:32 PM FINDINGS: Orbital cavities: The orbits are unremarkable as visualized. Bones/joints: Nondisplaced age-indeterminate fracture RIGHT nasal bone. Paranasal sinuses: Nodular mucoperiosteal thickening within the paranasal sinuses without air-fluid levels. Soft tissues: The soft tissues are unremarkable. IMPRESSION: 1. Paranasal sinus inflammatory changes. 2. Nondisplaced age-indeterminate fracture RIGHT nasal bone. 3. Please see above CT scan of the head for intracranial and calvarial findings. PROCEDURE INFORMATION: Exam: CT Cervical Spine Without Contrast Exam date and time: 03/23/2023 2:50 PM Age: 73 years old Clinical indication: Other: Fall w/o remembering; Other: Racoon eyes TECHNIQUE: Imaging protocol: Computed tomography of the cervical spine without contrast. COMPARISON: CT HEAD FACIAL WO 11/07/2022 5:[address] scan of the chest dated 04/08/2022 FINDINGS: Bones/joints: There is slight reversal of the cervical lordosis. There is mild anterolisthesis of C5 upon C6 and C6 upon C7. There is a chronic fracture of the C7 spinous process no acute cervical spine fracture. Redemonstration of nondisplaced LEFT occipital bone fracture. No suspicious osseous lesions. Degenerative changes most pronounced at C4-C5 and C5-C6 without significant central or foraminal stenosis. See C4-C5 finding. Salivary glands: Limited evaluation of the salivary glands is unremarkable. Lungs: Lung apices are unremarkable. Thyroid: Limited evaluation of the thyroid gland demonstrates a 1.6 cm LEFT thyroid nodule. Vasculature: Calcification of the common carotid artery bifurcations. Soft tissues: Soft tissues are unremarkable. IMPRESSION: 1. No acute cervical spine findings. 2. 1.6 cm LEFT thyroid nodule. Non urgent thyroid sonography is recommended. 3. Additional incidental/nonemergent findings as discussed above. Dictated and Authenticated by: Evelin Estrada MD. Ordering:CARLOS A Abreu MD
[2023-03-23 15:26] LABS: ETHANOL BLOOD < 3.0 mg/dL (<10)
[2023-03-23] MEDS: levETIRAcetam 1,000 MG in Normal Saline 100 ML 400 MG IVPB (15:32)
--- NOTE | 2023-03-23 15:45 | RT.EKG_ITS ---
APPROVED REPORT Exam: Resting ECG Reason for Exam: Trauma Patient Location: E HR:71 bpm ECG Measurements Heart Rate 71 AXIS IN 179 P 34 QRSd 123 QRS 53 QT 401 T 69 QTc 435 Conclusion Sinus rhythm...normal P axis, V-rate 60- 99 Nonspecific intraventricular conduction delay...QRSd >115mS, not LBBB/RBBB No STEMI
[2023-03-23] MEDS: MAGNESIUM SULFATE 8.12 MEQ, MULTIVITAMIN 10 ML, THIAMINE 100 MG, FOLIC ACID 1 MG in Nor... 168.867 MG IV (15:50)
--- NOTE | 2023-03-23 15:53 | DI.VRAD_ITS ---
PROCEDURE INFORMATION: Exam: CT Chest Without Contrast; Diagnostic Exam date and time: 03/23/2023 2:59 PM Age: 73 years old Clinical indication: Injury or trauma; Fall; Ruq; Blunt trauma (contusions or hematomas) TECHNIQUE: Imaging protocol: Diagnostic computed tomography of the chest without contrast. COMPARISON: CT CHEST PE CTA 04/08/2022 5:23 AM FINDINGS: Thyroid: There is a 1.5 cm low-density left lobe thyroid lesion. Recommend sonography. There is moderate lumbar spondylosis. Lungs: Unremarkable. No consolidation. No masses. Pleural spaces: Unremarkable. No pneumothorax. No pleural effusion. Heart: Unremarkable. No cardiomegaly. No pericardial effusion. Coronary arteries: Coronary artery calcifications/stents identified. Lymph nodes: Unremarkable. No enlarged lymph nodes. Vasculature: Unremarkable. No aortic aneurysm. Bones/joints: See Thyroid finding. Soft tissues: Unremarkable. IMPRESSION: No evidence for acute posttraumatic abnormality. PROCEDURE INFORMATION: Exam: CT Abdomen And Pelvis Without Contrast Exam date and time: 03/23/2023 2:59 PM Age: 73 years old Clinical indication: Injury or trauma; Fall; Ruq; Blunt trauma (contusions or hematomas) TECHNIQUE: Imaging protocol: Computed tomography of the abdomen and pelvis without contrast. COMPARISON: CT ABDOMEN PELVIS W 04/08/2022 9:28 PM FINDINGS: Liver: Normal. No mass. Gallbladder and bile ducts: Status post cholecystectomy. Pancreas: Normal. No ductal dilation. Spleen: Normal. No splenomegaly. Adrenal glands: Normal. No mass. Kidneys and ureters: Normal. No hydronephrosis. Stomach and bowel: Diverticulosis without acute diverticulitis. Appendix: No evidence of appendicitis. Intraperitoneal space: Unremarkable. No free air. No significant fluid collection. Vasculature: Moderate atherosclerotic change present in the vasculature. Lymph nodes: Unremarkable. No enlarged lymph nodes. Urinary bladder: There is mild asymmetric bladder wall thickening on the right near the dome. Follow-up recommended. Reproductive: It appears the patient is status post vasectomy. Bones/joints: Unremarkable. No acute fracture. Soft tissues: Unremarkable. IMPRESSION: 1. No evidence for acute posttraumatic abnormality. 2. Follow-up right anterior bladder wall thickening. Dictated and Authenticated by: Shandra Cano MD. Ordering:CARLOS A Abreu MD
--- NOTE | 2023-03-24 03:41 | DI.CT_ITS ---
Exam(s) CT CHEST/ABD/PEL WO CT THORACIC LUMBAR SPINE REC EXAM: CT CHEST/ABD/PEL WO CLINICAL HISTORY: trauma. TECHNIQUE: Imaging Protocol: Axial computed tomography images with coronal and sagittal reformatted images were created and reviewed Images of the thoracic and lumbar spine were reconstructed from the chest abdomen pelvic CT using bon e algorithm. CONTRAST MATERIAL: Noncontrast COMPARISON: CT CT ABDOMEN PELVIS W from 04/08/[address] THORACIC LUMBAR SPINE REC from 03/23/2023 FINDINGS: CHEST: Tracheobronchial tree: Patent where visualized. Pulmonary parenchyma: No consolidation or dominant measurable mass. Pleura: No effusion or pneumothorax. Lymph nodes: Within normal limits. Aorta: Thoracic portion non-dilated. Heart: Normal size. Coronary artery stent stent. No pericardial effusion. Bones: Degenerative disc changes. Slight thoracic scoliosis. No lytic or blastic lesions.No flo silvino fractures. No displaced rib fractures. ABDOMEN: Liver: Normal density. No measurable mass. Gallbladder and biliary tract: Status post cholecystectomy. No radiodense calculus or dilation. Pancreas: Normal density, no abnormal calcifications or inflammatory process. Spleen: Normal. Kidneys: Normal size, contour and axis. No radiodense stones or obstructive uropathy. No suspicious m asses seen. Adrenal glands: No masses seen. Aorta: Abdominal portion non-dilated. Atherosclerotic changes. Lymph nodes: Within normal limits. Soft tissues: Unremarkable. Lumbar spine: Severe degenerative changes at L2-3. Right laminectomy defect at this level. Degenera tive disc changes are with Schmorl's node seen at L4-5. Moderate narrowing of the L5-S1 disc space. Prominent facet degenerative changes. No evidence of acute fracture. Mild levoscoliosis. PELVIS: Bladder: Symmetric distention. Mild wall thickening. No focal mass or stone. Bowel: Diverticulosis. No obstruction or bowel wall thickening. Peritoneal cavity: No ascites, collection or mesenteric inflammatory response. Bones: Unremarkable for age.. No evidence of pelvic fracture. Reproductive organs: Within normal limits. IMPRESSION: No acute abnormality in the chest, abdomen or pelvis.. Degenerative changes in the thoracic and lumbar spine. No evidence of acute fracture. RADIATION DOSE DELIVERED: 1,445.11mGy.cm Total DLP DATA REPOSITORY: All CT scans at this facility are submitted to the National Radiology Data Registry (NRDR) Dose Index Registry (DIR) with the [employer] (ACR). RADIATION OPTIMIZATION: All CT scans at this facility use at least one of these dose optimization te chniques: automated exposure control; mA and/or kV adjustment per patient size (includes targeted exa ms where dose is matched to clinical indication); or iterative reconstruction.
== END 2023-03-23 16:26 | disposition short-term general hospital (02) ==
PROVIDERS: Emergency Provider Emergency Medicine Emergency Medical Services; PCP Family Medicine
DX: I60.9 Nontraumatic subarachnoid hemorrhage, unspecified (principal); I62.01 Nontraumatic acute subdural hemorrhage; S02.119A Unspecified fracture of occiput, initial encounter for closed fracture; I25.10 Atherosclerotic heart disease of native coronary artery without angina pectoris; I25.2 Old myocardial infarction; R94.31 Abnormal electrocardiogram [ECG] [EKG]; E11.9 Type 2 diabetes mellitus without complications; E78.5 Hyperlipidemia, unspecified; I10 Essential (primary) hypertension; Z79.82 Long term (current) use of aspirin; Z79.02 Long term (current) use of antithrombotics/antiplatelets; Z79.4 Long term (current) use of insulin; Z87.891 Personal history of nicotine dependence; X58.XXXA Exposure to other specified factors, initial encounter; Z23 Encounter for immunization; Z79.899 Other long term (current) drug therapy
CPT/HCPCS: 71250; 80053; 80076; 83690; 90471; 93005; 96365; 96368; 96375; 99291; 70450; 70486; 72125; 74176; 80320; 82248; 83735; 84484; 85025; 85610; 85730; 93010; J1170; J1953

== ENCOUNTER 2023-08-29 13:22 | Outpatient (CLI) | payer MEDICARE, OTHER, SELFPAY ==
[2023-08-29 10:25] LABS: HCT 45.4 % (40.0-50.0); HGB 15.9 g/dL (13.5-17.5); MCH 32.7 pg (27.0-33.0); MCV 93 fL (80-95); Platelet Count 168 10^3/uL (130-400); RBC 4.86 10^6/uL (4.36-5.78); RDW 11.5 % (11.8-14.1); RDW-SD 39.7 fL; WBC 5.57 10^3/uL (4.4-10.8)
[2023-08-29 10:59] LABS: ALT 29 U/L (16-63); AST 15 U/L (15-37); Albumin 3.7 g/dL (3.4-5.0); Alkaline Phosphatase 67 U/L (46-116); Anion Gap 10.6 mmol/L (3-11); BUN 20 mg/dL (7-18); Bilirubin, Total 0.5 mg/dL (0.2-1.0); CO2 26.4 mmol/L (21.0-32.0); CREATININE 1.1 mg/dL (0.70-1.30); Calcium 9.4 mg/dL (8.5-10.1); Calculated LDL 48 mg/dL (<100); Chloride 98 mmol/L (98-107); Cholesterol 142 mg/dL (<200); Estimated GFR 71.77 (mL/min/1.73m2); Glucose 326 mg/dL (74-106); HDL Cholesterol 54 mg/dL (40-60); Potassium 4.3 mmol/L (3.5-5.1); Sodium 135 mmol/L (136-145); Triglyceride 203 mg/dL (<150)
[2023-08-29 12:37] LABS: Hemoglobin A1C 8.7 % (<5.7)
== END 2023-08-29 13:23 | disposition home or self-care (01) ==
LOC: LBO 08-30 13:23
PROVIDERS: PCP Family Medicine; Visit Provider Family Medicine
DX: I10 Essential (primary) hypertension (principal); E11.9 Type 2 diabetes mellitus without complications; D50.9 Iron deficiency anemia, unspecified
CPT/HCPCS: 36415; 80053; 80061; 85027; 83036

== ENCOUNTER → 2023-10-09 02:02 | Outpatient (CLI) | payer MEDICARE, OTHER, SELFPAY ==
--- NOTE | 2023-10-09 13:30 | DI.US_ITS ---
APPROVED REPORT EXAM: Comprehensive 2D, Doppler, and color-flow Echocardiogram Patient Location: Out-Patient [place]: Mango Sanders RDCS ([facility]) Indications: atherosclerosis of coronary arteries Conclusion 1. Normal chamber sizes 2. Normal LV function, EF 65%. Normal RV function. 3. Anatomically normal valves. No significant regurgitation or stenosis 4. No intracardiac shunt. 5. No pericardial effusion. Wall motion Left Ventricle The left ventricle is normal size. The left ventricular systolic function is normal. The left ventric ular ejection fraction is within the normal range. There is normal left ventricular wall thickness. T here is normal LV segmental wall motion. There is no ventricular septal defect visualized. LVEF is 60 %. Right Ventricle The right ventricle is normal size. The right ventricular systolic function is normal. Atria The left atrium size is normal. Right atrium is mildly dilated. The interatrial septum is intact with no evidence for an atrial septal defect. Aortic Valve The aortic valve is normal in structure. Aortic valve is probably trileaflet. There is no aortic valv ular stenosis. No aortic regurgitation is present. Mitral Valve The mitral valve is normal in structure. No evidence of mitral valve stenosis. Trace mitral regurgita tion. Tricuspid Valve The tricuspid valve is normal in structure. There is no tricuspid valve stenosis. Trace tricuspid reg urgitation. Unable to assess PA pressure. Pulmonic Valve The pulmonary valve is normal in structure. There is no pulmonic valvular stenosis. Trace pulmonic re gurgitation. Great Vessels The aortic root is normal in size. The ascending aorta is mildly dilated. IVC is normal in size and c ollapses >50% with inspiration. Pericardium There is no pericardial effusion. 2D Dimensions IVSD d PLAX 0.82 cm M: 0.6-1.2 Ao Root d 3.24 cm M: 3.1 - 3.7 LVPW d PLAX 0.78 cm M: 0.6 - 1.2 Ao Asc Diam d 3.82 cm M: 2.6 - 3.4 LVID d PLAX 5.48 cm M: 4.2 - 5.8 LVDs 3.66 cm M: 2.5 - 4.0 LV EF Teichholz 61.3 % FS 33.27 % LV EDV (Teich) 146.4 mL LV ESV (Teich) 56.6 mL Stroke Vol Index (Teich) 37.90 M-Mode TAPSE 2.08 cm (M/F) >1.7 Auto EF LV EDV A4C 207.8 mL LV EDV A2C 201.9 mL LV EDV BP 216.0 mL LV ESV A4C 87.0 mL LV ESV A2C 83.6 mL LV ESV BP 89.2 mL LVEF(%) A4C 58.1 % LVEF(%) A2C 58.6 % LVEF(%) BP 58.7 % LV SV A4C 120.8 ml LV SV A2C 118.3 ml LV SV BP 126.8 ml LV CO A4C 8.2 L/min LV CO A2C 7.7 L/min LV CO BP 8.0 L/min HR A4C 68.03 BPM HR A2C 65.22 BPM LV EDV Index (BP) LA Volume LA Length A4C 3.6 cm LA Length A2C LA Area A4C s 9.12 cm2 LA Area A2C s LA Vol A4C A-L 19.69 mL LA Vol A2C A-L LA Vol Biplane A-L LA Vol A4C MOD 18.6 mL LA Vol A2C MOD LA Vol BP MOD RA Volume RA Area A4C 16.2 cm2 RA ESV A4C (A-L) 45.0mL RA Vol/BSA A4C A-L RA Length A4C 4.9 cm RA ESV A4C (MOD) 43.6mL LV Diastology MV E' medial 0.055 (>0.07 m/s) MV E Vmax 0.54 (0.4-1.3 m/s) MV E/E' MED 9.77 (<14) MV A Vmax 0.80 (0.4-1.3 m/s) MV E' lateral 0.056 (>0.1 m/s) E/A Ratio 0.7 MV E/E' LAT 9.62 (<14) MV E' Average 0.056 m/s MV E/E'(average) 9.69 Aortic Valve AoV Vmax 1.34 m/s LVOT Vmax 0.95 m/s AoV Peak Grad 7.2 mmHg LVOT Peak Grad 3.6 mmHg AoV Area (Vmax) 2.42 cm2 LVOT VTI 0.204 m AoV VTI 0.297 m LVOT Mean Grad 1.8 mmHg AoV Mean Armond. 0.93 m/s LVOT SV 69.85 mL AoV Mean Grad 4.0 mmHg LVOT Diam s 2.05 cm AoV Area (VTI) 2.35 cm2 Velocity Ratio 0.71 Mitral Valve MV DT 299 (160-240 msec) Pulmonary Valve PV Vmax 1.05 (0.5-1.5 m/s) PV Peak Grad 4.4 mmHg PV Mean Armond 0.69 m/s PV Mean Grad 2.3 mmHg
== END ==
PROVIDERS: PCP Family Medicine; Visit Provider Family Medicine
DX: I25.10 Atherosclerotic heart disease of native coronary artery without angina pectoris (principal)
CPT/HCPCS: 93306

== ENCOUNTER → 2023-12-24 07:45 | Outpatient (BNVA) | payer MEDICARE, OTHER, SELFPAY | PROVIDERS: PCP Family Medicine; Referring Provider Family Medicine; Visit Provider Podiatrist | DX: L97.522 Non-pressure chronic ulcer of other part of left foot with fat layer exposed (principal); E11.621 Type 2 diabetes mellitus with foot ulcer; E11.40 Type 2 diabetes mellitus with diabetic neuropathy, unspecified; M67.01 Short Achilles tendon (acquired), right ankle; M67.02 Short Achilles tendon (acquired), left ankle; M20.41 Other hammer toe(s) (acquired), right foot | CPT/HCPCS: 11042; 97597; 99215 ==

== ENCOUNTER 2023-12-24 10:02 | Outpatient (REF) | payer MEDICARE, OTHER, SELFPAY | END 2023-12-24 10:03 | disposition home or self-care (01) | LOC: LBN 10:02 | PROVIDERS: PCP Family Medicine; Visit Provider Podiatrist | DX: L97.522 Non-pressure chronic ulcer of other part of left foot with fat layer exposed (principal) | CPT/HCPCS: 87070; 87075; 87205 ==

== ENCOUNTER → 2023-12-27 00:34 | Outpatient (CLI) | payer MEDICARE, OTHER, SELFPAY ==
--- NOTE | 2023-12-27 10:55 | DI.RAD_ITS ---
Exam(s) XR FOOT LT COMPLETE EXAM: XR FOOT LT COMPLETE CLINICAL HISTORY: Eval left 2-4 metatarsal heads,ULCER LT FOOT,L97.772. TECHNIQUE: 2D digital imaging was performed. COMPARISON: No exams were available for comparison FINDINGS: 3 views No evidence of fracture or diastasis of the Lisfranc joint. There moderate degenerative changes in t he medial aspect of the great toe metatarsophalangeal joint. Film the joint space narrowing noted me dially as well as dorsal medial osteophytes seen. Other MTP joints appear unremarkable as do the tar sometatarsal joints. Bone density normal. No osseous lesions. Tiny inferior calcaneal spur noted. IMPRESSION: Great toe metatarsophalangeal joint findings as above. DATA REPOSITORY: RADIATION DOSE DELIVERED:
--- NOTE | 2023-12-27 11:04 | DI.RAD_ITS ---
Exam(s) XR FOOT RT COMPLETE EXAM: XR FOOT RT COMPLETE CLINICAL HISTORY: Comparison views,HAMMERTOE RT FOT,M20.41. TECHNIQUE: 2D digital imaging was performed. COMPARISON: CR XR FOOT LT COMPLETE from 12/27/2023 FINDINGS: 3 views No evidence of acute fracture of the Lisfranc joint. There are great toe metatarsophalangeal joint. Also addition osteophytic densities in the soft tissues just proximal to the subjacent sesamoids. A degenerative subarticular cyst is noted in the most medial aspect of the great toe metatarsal head. Also dorsal medial osteophyte at this level. No other significant osseous findings. IMPRESSION: Degenerative changes at the great toe metatarsophalangeal joint. DATA REPOSITORY: RADIATION DOSE DELIVERED:
== END ==
PROVIDERS: PCP Family Medicine; Visit Provider Podiatrist
DX: L97.522 Non-pressure chronic ulcer of other part of left foot with fat layer exposed (principal); M20.41 Other hammer toe(s) (acquired), right foot
CPT/HCPCS: 73630

== ENCOUNTER → 2024-01-07 08:10 | Outpatient (BNVA) | payer MEDICARE, OTHER, SELFPAY | PROVIDERS: PCP Family Medicine; Referring Provider Family Medicine; Visit Provider Podiatrist | DX: E11.621 Type 2 diabetes mellitus with foot ulcer (principal); L97.522 Non-pressure chronic ulcer of other part of left foot with fat layer exposed; E11.40 Type 2 diabetes mellitus with diabetic neuropathy, unspecified; M67.01 Short Achilles tendon (acquired), right ankle; M67.02 Short Achilles tendon (acquired), left ankle; M20.41 Other hammer toe(s) (acquired), right foot | CPT/HCPCS: 11042 ==

== ENCOUNTER → 2024-01-21 07:49 | Outpatient (BNVA) | payer MEDICARE, OTHER, SELFPAY | PROVIDERS: PCP Family Medicine; Referring Provider Family Medicine; Visit Provider Podiatrist | DX: E11.621 Type 2 diabetes mellitus with foot ulcer; L97.522 Non-pressure chronic ulcer of other part of left foot with fat layer exposed; E11.40 Type 2 diabetes mellitus with diabetic neuropathy, unspecified; M67.01 Short Achilles tendon (acquired), right ankle; M67.02 Short Achilles tendon (acquired), left ankle; M20.41 Other hammer toe(s) (acquired), right foot | CPT/HCPCS: 11042 ==

== ENCOUNTER → 2024-02-04 08:13 | Outpatient (BNVA) | payer MEDICARE, OTHER, SELFPAY | PROVIDERS: PCP Family Medicine; Referring Provider Family Medicine; Visit Provider Podiatrist | DX: L97.522 Non-pressure chronic ulcer of other part of left foot with fat layer exposed (principal); E11.621 Type 2 diabetes mellitus with foot ulcer; E11.40 Type 2 diabetes mellitus with diabetic neuropathy, unspecified; M67.01 Short Achilles tendon (acquired), right ankle; M67.02 Short Achilles tendon (acquired), left ankle; M20.41 Other hammer toe(s) (acquired), right foot | CPT/HCPCS: 11042 ==

== ENCOUNTER → 2024-02-18 04:27 | Outpatient (CLI) | payer MEDICARE, OTHER, SELFPAY ==
--- NOTE | 2024-02-18 09:50 | DI.RAD_ITS ---
Exam(s) XR FOOT LT COMPLETE EXAM: XR FOOT LT COMPLETE CLINICAL HISTORY: osteo to met head 2-4?, ULCER LT FOOT WITH FAT LAYER EXPOSED, L97.522. TECHNIQUE: 2D digital imaging was performed. COMPARISON: CR XR FOOT RT COMPLETE from 12/27/2023 FINDINGS: 3 views No evidence of acute fracture or diastasis of the Lisfranc joint. Hammertoe deformities noted. Mode rate degenerative changes evident in the great toe metatarsophalangeal joint. Tarsometatarsal joints appear unremarkable. No pes planus. Tiny inferior calcaneal spur is noted. Some degenerative alberts ges noted in the anterior aspect of the tibiotalar joint, seen on the lateral view. Osteophytic dens ity on the medial aspect of the foot adjacent to the navicular tuberosity is probably an accessory os sicle or sesamoid at this level. IMPRESSION: As above. DATA REPOSITORY: RADIATION DOSE DELIVERED:
== END ==
PROVIDERS: PCP Family Medicine; Visit Provider Podiatrist
DX: L97.522 Non-pressure chronic ulcer of other part of left foot with fat layer exposed (principal)
CPT/HCPCS: 73630

== ENCOUNTER → 2024-02-19 08:01 | Outpatient (BNVA) | payer MEDICARE, OTHER, SELFPAY | PROVIDERS: PCP Family Medicine; Referring Provider Family Medicine; Visit Provider Podiatrist | DX: L97.522 Non-pressure chronic ulcer of other part of left foot with fat layer exposed; E11.621 Type 2 diabetes mellitus with foot ulcer; E11.40 Type 2 diabetes mellitus with diabetic neuropathy, unspecified; M67.01 Short Achilles tendon (acquired), right ankle; M67.02 Short Achilles tendon (acquired), left ankle; M20.41 Other hammer toe(s) (acquired), right foot; D64.9 Anemia, unspecified | CPT/HCPCS: 11042 ==

== ENCOUNTER 2024-02-19 09:39 | Outpatient (CLI) | payer MEDICARE, OTHER, SELFPAY ==
[2024-02-19 09:07] LABS: HCT 48.4 % (40.0-50.0); HGB 17.1 g/dL (13.5-17.5)
== END 2024-02-19 09:40 | disposition home or self-care (01) ==
LOC: LBO 09:39
PROVIDERS: PCP Family Medicine; Visit Provider Podiatrist
DX: D64.9 Anemia, unspecified (principal)
CPT/HCPCS: 11042; 36415; 85014; 85018

== ENCOUNTER → 2024-03-04 08:12 | Outpatient (BNVA) | payer MEDICARE, OTHER, SELFPAY | PROVIDERS: PCP Family Medicine; Referring Provider Family Medicine; Visit Provider Podiatrist | DX: L97.522 Non-pressure chronic ulcer of other part of left foot with fat layer exposed (principal); E11.621 Type 2 diabetes mellitus with foot ulcer; E11.40 Type 2 diabetes mellitus with diabetic neuropathy, unspecified; M67.01 Short Achilles tendon (acquired), right ankle; M67.02 Short Achilles tendon (acquired), left ankle; M20.41 Other hammer toe(s) (acquired), right foot | CPT/HCPCS: 11042 ==

== ENCOUNTER → 2024-03-18 10:21 | Outpatient (BNVA) | payer MEDICARE, OTHER, SELFPAY | PROVIDERS: PCP Family Medicine; Referring Provider Family Medicine; Visit Provider Podiatrist | DX: E11.621 Type 2 diabetes mellitus with foot ulcer (principal); L97.522 Non-pressure chronic ulcer of other part of left foot with fat layer exposed; E11.40 Type 2 diabetes mellitus with diabetic neuropathy, unspecified; M67.01 Short Achilles tendon (acquired), right ankle; M67.02 Short Achilles tendon (acquired), left ankle; M20.41 Other hammer toe(s) (acquired), right foot | CPT/HCPCS: 11042 ==

== ENCOUNTER → 2024-04-02 01:59 | Outpatient (CLI) | payer MEDICARE, OTHER, SELFPAY ==
--- NOTE | 2024-04-02 09:18 | DI.RAD_ITS ---
Exam(s) XR FOOT LT COMPLETE EXAM: XR FOOT LT COMPLETE CLINICAL HISTORY: ? om METATARSAL HEADS,ULCER LT FOOT,l97.522. TECHNIQUE: 2D digital imaging was performed. COMPARISON: CR XR FOOT LT COMPLETE from 02/18/2024 FINDINGS: Six views There is a skin ulcer on the plantar aspect of the foot metatarsal head region. There is no radiogra phic evidence of osteomyelitis. Moderate degenerative changes are noted in the great toe metatarsoph alangeal joint. No osseous lesions nor erosions. The a sesamoid bones subjacent to the great toe me tatarsal head and 5th metatarsal head appear intact. There is no radiopaque foreign body. No osseou s lesions. IMPRESSION: Findings as above but without radiographic evidence of osteomyelitis. DATA REPOSITORY: RADIATION DOSE DELIVERED:
== END ==
PROVIDERS: PCP Family Medicine; Visit Provider Podiatrist
DX: L97.522 Non-pressure chronic ulcer of other part of left foot with fat layer exposed (principal); M85.872 Other specified disorders of bone density and structure, left ankle and foot
CPT/HCPCS: 11042; 73630

== ENCOUNTER → 2024-04-16 09:39 | Outpatient (BNVA) | payer MEDICARE, OTHER, SELFPAY | PROVIDERS: PCP Family Medicine; Referring Provider Family Medicine; Visit Provider Podiatrist | DX: L97.522 Non-pressure chronic ulcer of other part of left foot with fat layer exposed (principal); E11.621 Type 2 diabetes mellitus with foot ulcer; E11.42 Type 2 diabetes mellitus with diabetic polyneuropathy; M20.41 Other hammer toe(s) (acquired), right foot; M67.01 Short Achilles tendon (acquired), right ankle; M67.02 Short Achilles tendon (acquired), left ankle | CPT/HCPCS: 11042 ==

== ENCOUNTER → 2024-05-07 10:48 | Outpatient (BNVA) | payer MEDICARE, OTHER, SELFPAY | PROVIDERS: PCP Family Medicine; Referring Provider Family Medicine; Visit Provider Podiatrist | DX: L97.522 Non-pressure chronic ulcer of other part of left foot with fat layer exposed (principal); E11.621 Type 2 diabetes mellitus with foot ulcer; E11.40 Type 2 diabetes mellitus with diabetic neuropathy, unspecified; M20.41 Other hammer toe(s) (acquired), right foot; M67.01 Short Achilles tendon (acquired), right ankle; M67.02 Short Achilles tendon (acquired), left ankle | CPT/HCPCS: 11042 ==

== ENCOUNTER → 2024-05-28 12:48 | Outpatient (BNVA) | payer MEDICARE, OTHER, SELFPAY | PROVIDERS: PCP Family Medicine; Referring Provider Family Medicine; Visit Provider Podiatrist | DX: L97.522 Non-pressure chronic ulcer of other part of left foot with fat layer exposed (principal); E11.621 Type 2 diabetes mellitus with foot ulcer; E11.40 Type 2 diabetes mellitus with diabetic neuropathy, unspecified; M20.41 Other hammer toe(s) (acquired), right foot; M67.01 Short Achilles tendon (acquired), right ankle; M67.02 Short Achilles tendon (acquired), left ankle | CPT/HCPCS: 11042 ==

== ENCOUNTER 2024-06-12 09:13 | Emergency (ER) | payer MEDICARE, OTHER, SELFPAY ==
[2024-06-12 09:26] VITALS: BP 164/91; PULSE 85; RESP 12; TEMP 36.1; O2SAT 96
--- NOTE | 2024-06-12 09:30 | DI.RAD_ITS ---
Exam(s) XR SHOULDER RT COMPLETE 2+V XR SCAPULA RT EXAM: XR SHOULDER RT COMPLETE 2+V and XR scapula RT CLINICAL HISTORY: fall, pain. TECHNIQUE: 2D digital imaging was performed of the right scapula and shoulder. Seven images were ob tained. AP, Grashey, Y-view and axillary views were obtained. COMPARISON: CR,XR XR PORTABLE CHEST AP from 04/08/2022 CR XR CHEST 2V PA LATERAL from 06/12/2024 FINDINGS: BONES: No acute fracture is present. No bony destructive lesion is seen. JOINTS: No dislocation present. There are degenerative changes seen at the acromioclavicular and vasyl ohumeral joint. SOFT TISSUE: Normal. IMPRESSION: No acute fracture or dislocation. DATA REPOSITORY: RADIATION DOSE DELIVERED:
--- NOTE | 2024-06-12 09:30 | DI.CT_ITS ---
Exam(s) CT HEAD CERVICAL SPINE WO EXAM: CT HEAD CERVICAL SPINE WO CLINICAL HISTORY: fall, rt parietal hematoma. TECHNIQUE: Imaging Protocol: Axial computed tomography images with coronal and sagittal reformatted images were created and reviewed COMPARISON: CT CT HEAD CERV SPINE FACIAL WO from 03/23/2023 FINDINGS: CT Head: Ventricles and Extra axial spaces: Normal in size and morphology for the patient's age. Hemorrhage: None. Cerebral parenchyma: There is an area of encephalomalacia involving the right frontal lobe. No evide nce of an acute territorial infarct. There are areas of decreased attenuation in the white matter co nsistent with chronic microvascular ischemic disease. Midline shift: None. Brainstem/Cerebellum: Normal. Calvarium: Normal. Visualized Paranasal sinuses/Mastoids: There is mucosal thickening in the visualized paranasal sinuse s. No air-fluid levels are present. The mastoid air cells are clear. Soft Tissues: There is mild soft tissue swelling over the posterior right parietal bone. CT Cervical Spine: Bones: No acute fracture or subluxation. Age-appropriate degenerative changes are present throughout the cervical spine. Soft Tissues: Unremarkable. Lung Apices: Clear. IMPRESSION: 1. No acute intracranial process. 2. No acute fracture or subluxation in the cervical spine. RADIATION DOSE DELIVERED: 1,402.7mGy.cm Total DLP DATA REPOSITORY: All CT scans at this facility are submitted to the National Radiology Data Registry (NRDR) Dose Index Registry (DIR) with the [employer] (ACR). RADIATION OPTIMIZATION: All CT scans at this facility use at least one of these dose optimization te chniques: automated exposure control; mA and/or kV adjustment per patient size (includes targeted exa ms where dose is matched to clinical indication); or iterative reconstruction.
--- NOTE | 2024-06-12 09:30 | DI.RAD_ITS ---
Exam(s) XR CHEST 2V PA LATERAL EXAM: XR CHEST 2V PA LATERAL CLINICAL HISTORY: fall, pain right upper back TECHNIQUE: 2D digital imaging was performed of the chest. Two images were obtained. PA and lateral views were obtained. COMPARISON: CR,XR XR PORTABLE CHEST AP from 04/08/2022 FINDINGS: MEDIASTINUM: Normal. HEART: Normal. PULMONARY VASCULATURE: Normal. LUNGS: Clear. PLEURAL SPACE: No pleural effusion or pneumothorax. BONE:Within normal limits for the patient's age. OTHER FINDINGS:Normal. IMPRESSION: No acute pulmonary findings. DATA REPOSITORY: RADIATION DOSE DELIVERED:
--- NOTE | 2024-06-12 10:13 | W.ED.GENAD ---
Discharge Plan Disposition Patient Disposition: Home Condition: Stable Discharge Details Clinical Impression: Fall, Contusion of left scapula, Hematoma of right parietal scalp Primary Care Provider: Navin Souza ED Provider: Aldair Costa Home Meds and New Rx's Prescriptions: Continued celecoxib 100 mg capsule 100 mg PO BID escitalopram oxalate 20 mg tablet 20 mg PO DAILY fluorouracil 5 % cream 1 applic topical BID levetiracetam 500 mg tablet 500 mg PO BID primidone 50 mg tablet 50 mg PO ONCE ropinirole 1 mg tablet 1 mg PO QHS Rx Instructions: administer 1-3 hours before bedtime Trulicity 3 mg/0.5 mL pen injector 3 mg subcut QWEEK Santyl 250 unit/gram ointment 1 applic topical DAILY Qty: 90 0RF Rx Instructions: Left foot Measurements: 20 mm x 30 mm x 5 mm cyclobenzaprine 10 mg tablet 10 tab PO TID PRN PRN Patient Comments: TAKE ONE TABLET BY MOUTH EVERY 8 HOURS NEEDED atorvastatin 80 mg Tablet 80 mg PO QPM nitroglycerin 0.4 mg Tablet, Sublingual 0.4 mg SUBLINGUAL Q5M PRN Rx Instructions: do not exceed 3 doses per episode furosemide [Lasix] 20 mg Tablet 20 mg PO DAILY Jardiance 10 mg Tablet 10 mg PO DAILY spironolactone 25 mg Tablet 12.5 mg PO DAILY losartan 50 mg Tablet 50 mg PO DAILY metoprolol succinate [Toprol XL] 50 mg Tablet Extended Release 24 Hr 50 mg PO DAILY rabeprazole [AcipHex] 20 mg Tablet,Delayed Release (Dr/Ec) 20 mg PO DAILY lorazepam 1 mg Tablet 1 mg PO BID PRN Discharge Instructions Instructions: Head injury in adults, Minor Contusion ED, Preventing Falls ED Additional Instructions: Use sling over the next 1 to 2 weeks. Perform pendulum exercises a few times a day as discussed. Please contact your primary care physician to arrange follow-up. Return to the ER immediately for any worsening or new concerning symptoms. Referrals: Navin Souza MD [Primary Care Provider] - Discharge Data Discharge Date/Time-TO BE ENTERED AT DEPARTURE: 06/12/24 11:56 HPI General Mode of arrival: ambulatory. Date/Time Provider Initiated Documentation: 06/12/24 09:30. Limitations to Documentation: no limitations. Information obtained by: patient. HPI Narrative: 74yo male here with chief complaint of right shoulder pain. Patient notes last night he slipped and fell down a flight of basement steps. He impacted his right head and right shoulder. He did not lose consciousness. Patient has pain in the shoulder that is worse with movement. He has right upper back pain. No neck pain. No midline back pain. No chest or abdominal pain. Related Data Home Medications ?Medication ?Instructions ?Recorded ?Confirmed cyclobenzaprine 10 mg tablet 10 tab PO TID PRN PRN 02/19/22 06/12/24 atorvastatin 80 mg tablet 80 mg PO QPM 04/08/22 06/12/24 empagliflozin 10 mg tablet 10 mg PO DAILY 04/08/22 06/12/24 (Jardiance) furosemide 20 mg tablet (Lasix) 20 mg PO DAILY 04/08/22 06/12/24 lorazepam 1 mg tablet 1 mg PO BID PRN 04/08/22 06/12/24 losartan 50 mg tablet 50 mg PO DAILY 04/08/22 06/12/24 metoprolol succinate 50 mg 50 mg PO DAILY 04/08/22 06/12/24 tablet,extended release 24 hr (Toprol XL) nitroglycerin 0.4 mg sublingual 0.4 mg sublingual Q5M PRN 04/08/22 06/12/24 tablet rabeprazole 20 mg tablet,delayed 20 mg PO DAILY 04/08/22 06/12/24 release (AcipHex) spironolactone 25 mg tablet 12.5 mg PO DAILY 04/08/22 06/12/24 celecoxib 100 mg capsule 100 mg PO BID 12/20/23 06/12/24 dulaglutide 3 mg/0.5 mL 3 mg subcut QWEEK 12/20/23 06/12/24 subcutaneous pen injector (Trulicity) escitalopram oxalate 20 mg tablet 20 mg PO DAILY 12/20/23 06/12/24 fluorouracil 5 % topical cream 1 applic topical BID 12/20/23 06/12/24 levetiracetam 500 mg tablet 500 mg PO BID 12/20/23 06/12/24 primidone 50 mg tablet 50 mg PO ONCE 12/20/23 06/12/24 ropinirole 1 mg tablet 1 mg PO QHS 12/20/23 06/12/24 collagenase clostridium histo. 250 1 applic topical DAILY #90 grams 02/04/24 06/12/24 unit/gram topical ointment (Santyl) Previous Rx's ?Medication ?Instructions ?Recorded collagenase clostridium histo. 250 1 applic topical DAILY #90 grams 02/04/24 unit/gram topical ointment (Santyl) Allergies Allergy/AdvReac Type Severity Reaction Status Date / Time cortisone Allergy Intermediate rash Verified 06/12/24 09:31 adhesive tape Allergy unknown Verified 06/12/24 09:31 General Stated Complaint: Trauma ANDREA: 3 Review of Systems All systems reviewed & are unremarkable except as noted in HPI and below Eyes Eyes: Denies loss of vision Musculoskeletal Musculoskeletal: Reports as per HPI Neurologic Neurologic: Denies loss of vision Exam Const General: cooperative and no acute distress HENMT Head: no Alva's sign, hematoma right parietal and no raccoon eyes Mouth: moist mucous membranes Eyes EOM: EOM intact bilaterally Neck Neck: full ROM and trachea midline Resp Effort & Inspection: normal respiratory effort Auscultation: clear to auscultation bilaterally, no rales, no rhonchi and no wheezes Cardio Rate: regular rate and not tachycardic Rhythm: regular rhythm GI Palpation: soft, not firm, no guarding, no masses, not rigid and nontender Back/Spine/Pelvis Back: back tenderness (right scapula) Cervical Spine: cervical ROM normal Thoracic/Lumbar Spine: thoracic and lumbar spine normal to inspection Skin General skin exam: no rashes or lesions noted Neuro General: patient alert, patient awake and tone normal Extrem General: no edema Right upper extremity: shoulder/upper arm Details: tenderness Location: of the proximal humerus and abnormal ROM Details: pain with active ROM Details: in ABduction and elbow/forearm Details: normal to inspection Psych Appearance: grossly normal Mental Status: mental status grossly normal Course Vital Signs Vital signs: Vital Signs Temperature 36.1 C L 06/12/24 09:26 Pulse 85 06/12/24 09:26 Respiratory Rate 12 06/12/24 09:26 Blood Pressure 164/91 H 06/12/24 09:26 Pulse Oximetry 96 06/12/24 09:26 Temperature 36.1 C L 06/12/24 09:26 Temperature Source Oral 06/12/24 09:26 Pulse 85 06/12/24 09:26 Respiratory Rate 12 06/12/24 09:26 Respiratory Effort Normal 09/27/24 09:52 Respiratory Depth Normal 06/12/24 09:52 Respiratory Pattern Normal 06/12/24 09:52 Blood Pressure 164/91 H 06/12/24 09:26 Blood Pressure Position Sitting 06/12/24 09:26 Pulse Oximetry 96 06/12/24 09:26 Oxygen Delivery Method Room Air 06/12/24 09:26 Oxygen Flow Rate 0 06/12/24 09:26 Medical Decision Making -- 74-year-old male presents after trip and fall down stairs last night with head injury and right shoulder injury. Patient is hypertensive. Patient saturating well no respiratory distress. Airway intact. Concern for right proximal humerus versus scapular fracture. Consider acute life-threatening intracranial traumatic hemorrhage. Plan to obtain CT of the head and C-spine given potential distracting injury. 1109 --CT of the head and cervical spine interpreted by radiology:1. No acute intracranial process. 2. No acute fracture or subluxation in the cervical spine. Chest x-ray interpreted by radiology: No acute pulmonary findings Right scapular x-ray was interpreted by radiology:No acute fracture or dislocation. Right shoulder x-ray interpreted by radiology:No acute fracture or dislocation. -- All results were discussed with the patient. Usual and customary discharge instructions were reviewed. Quality:SDOH Health Related Social Needs: No Data to Display PFSH All Active Problems (Updated 06/12/24 @ 11:26 by Aldair Costa MD) Hematoma of right parietal scalp (Acute) Contusion of left scapula (Acute) Fall (Acute) Hammertoe of right foot (Acute) Achilles tendon contracture, bilateral (Acute) Diabetes mellitus with neuropathy (Acute) Ulcer of left foot with fat layer exposed (Acute) Hypertension (Chronic) Sleep walking disorder (Acute) Obstructive sleep apnea (Chronic) Periodic limb movement disorder (Acute) Anxiety (Chronic) Neuropathy due to type 2 diabetes mellitus (Acute) Pure hypercholesterolemia (Acute) GERD (gastroesophageal reflux disease) (Chronic) Alcohol abuse (Chronic) Type 2 diabetes mellitus without complication (Acute) Actinic keratitis (Acute) Diabetic foot ulcer (Acute) Acute cholecystitis (Acute) Coronary atherosclerosis of [place] coronary artery (Acute) Ischemic cardiomyopathy (Acute) TTE with LVEF 17% with apical wall motion abnormalities per echocardiogram 02/27/2022 [facility] [place] Diabetes mellitus (Chronic) ADD (attention deficit disorder) (Acute) Insomnia (Acute) Actinic keratosis (Acute) Medical History Hematuria Hx of heart failure Non-ST elevation [place] (NSTEMI) Hypercholesterolemia Acute bursitis of left shoulder Neoplasm of unspecified behavior of bone, soft tissue, and skin Surgical History Status post angioplasty with stent 100% LAD ostial lesion, 99% LAD proximal lesion, 90% proximal left circumflex, 90% stenosis ostial segment of ramus, RCA free of disease. Intervention summary stent to ostial segment of LAD stent placed to proximal LAD required dilatation and stenting of D1 branch. Status post angioplasty of first and second diagonal branches and thrombectomy of proximal left circumflex and angioplasty of ostial ramus branch. H/O esophagogastroduodenoscopy S/P tonsillectomy (02/27/22) S/P lumbar spine operation (~10/2021) [facility]; L2-L3 S/P TKR (total knee replacement) (~10/2020) s/p bilateral TKA; Left 09/04, Right 11/06 Social History Smoking/Tobacco Use Status: Former Tobacco Use Smoking risk assessment performed?: Yes Alcohol Intake: current Alcohol Intake frequency: 0-2 drinks per day Alcohol type: beer Drug use: Never Substance use type: does not use Housing: house Current gender identity: male Do you feel safe at home: Yes Do you feel safe in your relationship?: Yes PAWSS Have you Been Recently Intoxicated or Drunk Within the Last 30 days?: No Have you Ever Experienced Previous Episodes of Alcohol Withdrawal?: No Have you ever Experienced Withdrawal Seizures?: No Have you ever Experienced Delirium Tremens(DT)s?: No Have you ever undergone Alcohol Rehabilitation Treatment (i.e, inpt ot outpatient treatment programs)?: No Have you ever Experienced Blackouts?: No Have you ever Combined Alcohol with other Downers within the last 90 days?: No Have you ever Combined Alcohol with any other Substance of Abuse during the last 90 days?: No Positive Blood Alcohol level on Presentation? [PCS.BAL]: No Evidence of Increased Autonomic Activity (i.e. HR>120, tremor, sweating, agitation, nausea)?: No Result: 0
== END 2024-06-12 11:56 | disposition home or self-care (01) ==
PROVIDERS: Emergency Provider Student in an Organized Health Care Education/Training Program; PCP Family Medicine
DX: S40.012A Contusion of left shoulder, initial encounter (principal); S00.03XA Contusion of scalp, initial encounter; I25.2 Old myocardial infarction; E78.00 Pure hypercholesterolemia, unspecified; I10 Essential (primary) hypertension; E11.40 Type 2 diabetes mellitus with diabetic neuropathy, unspecified; Z95.5 Presence of coronary angioplasty implant and graft; Z79.85 Long-term (current) use of injectable non-insulin antidiabetic drugs; Z79.84 Long term (current) use of oral hypoglycemic drugs; W10.8XXA Fall (on) (from) other stairs and steps, initial encounter; Y93.01 Activity, walking, marching and hiking; Y92.018 Other place in single-family (private) house as the place of occurrence of the external cause; Z87.891 Personal history of nicotine dependence
CPT/HCPCS: 99284; 70450; 71046; 72125; 73010; 73030

== ENCOUNTER → 2024-06-29 12:47 | Outpatient (BNVA) | payer MEDICARE, OTHER, SELFPAY ==
--- NOTE | 2024-08-12 15:32 | NUR.NOTE ---
Accessed patient chart to print provider note to be faxed to [facility] for billing purposes. Nursing Note:
== END ==
PROVIDERS: PCP Family Medicine; Visit Provider Podiatrist
DX: L97.522 Non-pressure chronic ulcer of other part of left foot with fat layer exposed (principal); E11.621 Type 2 diabetes mellitus with foot ulcer; E11.40 Type 2 diabetes mellitus with diabetic neuropathy, unspecified; M20.41 Other hammer toe(s) (acquired), right foot; M67.01 Short Achilles tendon (acquired), right ankle; M67.02 Short Achilles tendon (acquired), left ankle
CPT/HCPCS: 11042

== ENCOUNTER 2024-06-29 14:28 | Outpatient (CLI) | payer MEDICARE, OTHER, SELFPAY ==
[2024-06-29 14:44] LABS: Hemoglobin A1C 8.3 % (<5.7)
== END 2024-06-29 14:29 | disposition home or self-care (01) ==
LOC: LBO 14:28
PROVIDERS: PCP Family Medicine; Visit Provider Podiatrist
DX: E11.621 Type 2 diabetes mellitus with foot ulcer (principal); L97.522 Non-pressure chronic ulcer of other part of left foot with fat layer exposed; Z09 Encounter for follow-up examination after completed treatment for conditions other than malignant neoplasm; E11.9 Type 2 diabetes mellitus without complications; E11.40 Type 2 diabetes mellitus with diabetic neuropathy, unspecified; M20.41 Other hammer toe(s) (acquired), right foot; M67.01 Short Achilles tendon (acquired), right ankle; M67.02 Short Achilles tendon (acquired), left ankle
CPT/HCPCS: 11042; 36415; 83036

== ENCOUNTER 2024-07-08 14:59 | Outpatient (REF) | payer MEDICARE, OTHER, SELFPAY ==
[2024-07-08 15:28] LABS: COMMENT (LAB VIEW ONLY) 18.46 mg/dL; Microalb ug/mg Crea 24.4 ug/mg Cr
== END 2024-07-08 15:00 | disposition home or self-care (01) ==
LOC: NCHCN 14:59
PROVIDERS: PCP Family Medicine; Visit Provider Family Medicine
DX: E11.9 Type 2 diabetes mellitus without complications (principal)
CPT/HCPCS: 82043; 82570

== ENCOUNTER → 2024-07-13 13:42 | Outpatient (BNVA) | payer MEDICARE, OTHER, SELFPAY | PROVIDERS: PCP Family Medicine; Referring Provider Family Medicine; Visit Provider Podiatrist | DX: M67.01 Short Achilles tendon (acquired), right ankle (principal); M67.02 Short Achilles tendon (acquired), left ankle; L97.522 Non-pressure chronic ulcer of other part of left foot with fat layer exposed; E11.40 Type 2 diabetes mellitus with diabetic neuropathy, unspecified; E11.621 Type 2 diabetes mellitus with foot ulcer | CPT/HCPCS: 11042 ==

== ENCOUNTER → 2024-08-05 11:08 | Outpatient (BNVA) | payer MEDICARE, OTHER, SELFPAY | PROVIDERS: PCP Family Medicine; Referring Provider Family Medicine; Visit Provider Podiatrist | DX: M67.01 Short Achilles tendon (acquired), right ankle (principal); M67.02 Short Achilles tendon (acquired), left ankle; E11.621 Type 2 diabetes mellitus with foot ulcer; E11.42 Type 2 diabetes mellitus with diabetic polyneuropathy; L97.522 Non-pressure chronic ulcer of other part of left foot with fat layer exposed | CPT/HCPCS: 11055 ==

== ENCOUNTER 2024-09-04 16:57 | Outpatient (REF) | payer MEDICARE, OTHER, SELFPAY ==
--- NOTE | 2024-09-04 10:30 | SKI_PTH ---
PATIENT: Fuad Pendleton LOC: [facility] U#:[id number] AGE/SX: 74/M ROOM: RE09/04/[address]: Festus Hernandez DO : 1950 BED: DIS: 09/04/2024 SPEC #: [id number]: RECD: 09/07/24 12:51 STATUS: MALU REQ #: [id number] SLIME: 09/04/24 10:[address]: Festus Hernandez DEPT: Surgical Specimen RECD BY: Venus Bates ENTERED: 09/07/24 12:52 SP TYPE: CASTRO RUFFIN DR: Navin Souza Tissues: 1 - SKIN BIOPSY(SHAVE/PUNCH) Procedures: SKIN LEVEL 4 Comments: [id number]
== END 2024-09-04 16:58 | disposition home or self-care (01) ==
LOC: LBN 16:57
PROVIDERS: PCP Family Medicine; Visit Provider Otolaryngology Otolaryngology/Facial Plastic Surgery
DX: H16.139 Photokeratitis, unspecified eye (principal); D49.2 Neoplasm of unspecified behavior of bone, soft tissue, and skin; L57.0 Actinic keratosis
CPT/HCPCS: 88305

== ENCOUNTER → 2024-09-28 08:44 | Outpatient (BNVA) | payer MEDICARE, OTHER, SELFPAY | PROVIDERS: PCP Family Medicine; Referring Provider Family Medicine; Visit Provider Podiatrist | DX: L97.522 Non-pressure chronic ulcer of other part of left foot with fat layer exposed (principal); E11.40 Type 2 diabetes mellitus with diabetic neuropathy, unspecified; M67.01 Short Achilles tendon (acquired), right ankle; M67.02 Short Achilles tendon (acquired), left ankle | CPT/HCPCS: 11042 ==

== ENCOUNTER 2024-09-28 13:24 | Outpatient (CLI) | payer MEDICARE, OTHER, SELFPAY ==
--- NOTE | 2024-09-28 09:15 | DI.RAD_ITS ---
Exam(s) XR FOOT LT COMPLETE EXAM: XR FOOT LT COMPLETE CLINICAL HISTORY: 3/4 met head ulcer of lt foot with fat layer exposed, L97.522, Osteo?. TECHNIQUE: 2D digital imaging was performed. Three views. COMPARISON: CR XR FOOT LT COMPLETE from 04/02/2024 FINDINGS: BONES: No acute fracture is present. No bony destructive lesion is seen. Accessory navicular. JOINTS: No dislocation present. Degenerative changes at 1st MTP joint. Hammertoe deformities SOFT TISSUE: Normal no abnormal gas or foreign body. IMPRESSION: Degenerative changes of 1st MTP joint No plain film evidence of osteomyelitis DATA REPOSITORY: RADIATION DOSE DELIVERED:
== END 2024-09-28 13:44 ==
LOC: DI 13:24
PROVIDERS: PCP Family Medicine; Visit Provider Podiatrist
DX: E11.40 Type 2 diabetes mellitus with diabetic neuropathy, unspecified
CPT/HCPCS: 11042; 73630

== ENCOUNTER 2024-10-09 13:40 | Outpatient (CLI) | payer MEDICARE, OTHER, SELFPAY ==
[2024-10-09 13:49] LABS: HCT 49.7 % (40.0-50.0); HGB 16.9 g/dL (13.5-17.5); MCH 32.4 pg (27.0-33.0); MCV 95 fL (80-95); MPV 10.5 fL (8.0-11.0); Platelet Count 158 10^3/uL (130-400); RBC 5.22 10^6/uL (4.36-5.78); RDW 12.1 % (11.8-14.1); RDW-SD 41.9 fL; WBC 4.68 10^3/uL (4.4-10.8)
[2024-10-09 14:06] LABS: Hemoglobin A1C 8.6 % (<5.7)
[2024-10-09 14:16] LABS: ALT 30 U/L (16-63); AST 15 U/L (15-37); Albumin 3.7 g/dL (3.4-5.0); Alkaline Phosphatase 76 U/L (46-116); Anion Gap 8.6 mmol/L (3-11); BUN 9 mg/dL (7-18); Bilirubin, Total 0.65 mg/dL (0.2-1.0); CO2 25.4 mmol/L (21.0-32.0); Calcium 9.4 mg/dL (8.5-10.1); Calculated LDL 93 mg/dL (<100); Chloride 103 mmol/L (98-107); Cholesterol 181 mg/dL (<200); Estimated GFR 79.97 (mL/min/1.73m2); Glucose 337 mg/dL (74-106); HDL Cholesterol 58 mg/dL (40-60); Potassium 4.1 mmol/L (3.5-5.1); Sodium 137 mmol/L (136-145); Total Protein 7.2 g/dL (6.4-8.2); Triglyceride 151 mg/dL (<150)
== END 2024-10-09 13:41 | disposition home or self-care (01) ==
LOC: LBO 13:42
PROVIDERS: PCP Family Medicine; Visit Provider Family Medicine
DX: Z00.00 Encounter for general adult medical examination without abnormal findings (principal)
CPT/HCPCS: 36415; 80053; 80061; 85027; 83036

== ENCOUNTER → 2024-10-20 14:03 | Outpatient (BNVA) | payer MEDICARE, OTHER, SELFPAY | PROVIDERS: PCP Family Medicine; Referring Provider Family Medicine; Visit Provider Podiatrist | DX: L97.522 Non-pressure chronic ulcer of other part of left foot with fat layer exposed (principal); E11.40 Type 2 diabetes mellitus with diabetic neuropathy, unspecified; M67.01 Short Achilles tendon (acquired), right ankle; M67.02 Short Achilles tendon (acquired), left ankle | CPT/HCPCS: 11042 ==

== ENCOUNTER → 2024-11-11 13:24 | Outpatient (BNVA) | payer MEDICARE, OTHER, SELFPAY | PROVIDERS: PCP Family Medicine; Referring Provider Family Medicine; Visit Provider Podiatrist | DX: L97.522 Non-pressure chronic ulcer of other part of left foot with fat layer exposed (principal); E11.40 Type 2 diabetes mellitus with diabetic neuropathy, unspecified; M67.01 Short Achilles tendon (acquired), right ankle; M67.02 Short Achilles tendon (acquired), left ankle | CPT/HCPCS: 11042 ==

== ENCOUNTER → 2024-12-03 10:36 | Outpatient (BNVA) | payer MEDICARE, OTHER, SELFPAY | PROVIDERS: PCP Family Medicine; Referring Provider Family Medicine; Visit Provider Podiatrist | DX: L97.522 Non-pressure chronic ulcer of other part of left foot with fat layer exposed (principal); E11.40 Type 2 diabetes mellitus with diabetic neuropathy, unspecified; M67.01 Short Achilles tendon (acquired), right ankle; M67.02 Short Achilles tendon (acquired), left ankle | CPT/HCPCS: 11042 ==

== ENCOUNTER → 2024-12-24 12:54 | Outpatient (BNVA) | payer MEDICARE, OTHER, SELFPAY | PROVIDERS: PCP Family Medicine; Referring Provider Family Medicine; Visit Provider Podiatrist | DX: L97.522 Non-pressure chronic ulcer of other part of left foot with fat layer exposed (principal); E11.40 Type 2 diabetes mellitus with diabetic neuropathy, unspecified; M67.01 Short Achilles tendon (acquired), right ankle; M67.02 Short Achilles tendon (acquired), left ankle | CPT/HCPCS: 11042 ==

== ENCOUNTER → 2025-01-13 12:58 | Outpatient (BNVA) | payer MEDICARE, OTHER, SELFPAY | PROVIDERS: PCP Family Medicine; Referring Provider Family Medicine; Visit Provider Podiatrist | DX: L97.522 Non-pressure chronic ulcer of other part of left foot with fat layer exposed (principal); E11.40 Type 2 diabetes mellitus with diabetic neuropathy, unspecified; M67.01 Short Achilles tendon (acquired), right ankle; M67.02 Short Achilles tendon (acquired), left ankle; L65.9 Nonscarring hair loss, unspecified; L60.2 Onychogryphosis; L60.8 Other nail disorders; L85.8 Other specified epidermal thickening | CPT/HCPCS: 11055; 99213 ==

== ENCOUNTER → 2025-02-11 12:57 | Outpatient (BNVA) | payer MEDICARE, OTHER, SELFPAY | PROVIDERS: PCP Family Medicine; Referring Provider Family Medicine; Visit Provider Podiatrist | DX: L97.522 Non-pressure chronic ulcer of other part of left foot with fat layer exposed (principal); E11.40 Type 2 diabetes mellitus with diabetic neuropathy, unspecified; M67.01 Short Achilles tendon (acquired), right ankle; M67.02 Short Achilles tendon (acquired), left ankle | CPT/HCPCS: 11042 ==

== ENCOUNTER → 2025-03-10 13:47 | Outpatient (BNVA) | payer MEDICARE, OTHER, SELFPAY | PROVIDERS: PCP Family Medicine; Referring Provider Family Medicine; Visit Provider Podiatrist | DX: L97.522 Non-pressure chronic ulcer of other part of left foot with fat layer exposed (principal); E11.40 Type 2 diabetes mellitus with diabetic neuropathy, unspecified; M67.01 Short Achilles tendon (acquired), right ankle; M67.02 Short Achilles tendon (acquired), left ankle; E11.65 Type 2 diabetes mellitus with hyperglycemia | CPT/HCPCS: 11042 ==

== ENCOUNTER → 2025-03-22 13:24 | Outpatient (BNVA) | payer MEDICARE, OTHER, SELFPAY | PROVIDERS: PCP Family Medicine; Referring Provider Family Medicine; Visit Provider Psychiatry & Neurology Neurology | DX: R27.0 Ataxia, unspecified (principal); G25.0 Essential tremor; E11.40 Type 2 diabetes mellitus with diabetic neuropathy, unspecified; R79.89 Other specified abnormal findings of blood chemistry; E11.59 Type 2 diabetes mellitus with other circulatory complications; I10 Essential (primary) hypertension; G62.9 Polyneuropathy, unspecified; R53.83 Other fatigue | CPT/HCPCS: 99215 ==

== ENCOUNTER 2025-03-23 14:18 | Outpatient (CLI) | payer MEDICARE, OTHER, SELFPAY ==
[2025-03-23 15:50] LABS: TSH (W/Ref FT4) 0.51 uIU/mL (0.36-3.74); Vitamin B12 617 pg/mL (193-986)
[2025-03-24 08:08] LABS: Total Protein 6.9 g/dL (6.3-8.2)
[2025-03-25 14:24] LABS: Albumin 62.2 % (55.8-66.1); Albumin g/dL 4.3 g/dL (3.6-5.2); Alpha 1 g/dL 0.30 g/dL (0.15-0.40); Alpha 2 g/dL 0.80 g/dL (0.50-1.00); Beta g/dL 0.80 g/dL (0.60-1.20); Gamma g/dL 0.70 g/dL (0.60-1.60)
== END 2025-03-23 14:19 | disposition home or self-care (01) ==
LOC: LBO 14:18
PROVIDERS: PCP Family Medicine; Visit Provider Psychiatry & Neurology Neurology
DX: G62.9 Polyneuropathy, unspecified (principal); R79.89 Other specified abnormal findings of blood chemistry; R53.83 Other fatigue
CPT/HCPCS: 36415; 82607; 84165; 84443

== ENCOUNTER → 2025-03-25 10:32 | Outpatient (BNVA) | payer MEDICARE, OTHER, SELFPAY | PROVIDERS: PCP Family Medicine; Referring Provider Family Medicine; Visit Provider Podiatrist | DX: L97.522 Non-pressure chronic ulcer of other part of left foot with fat layer exposed (principal); E11.65 Type 2 diabetes mellitus with hyperglycemia; E11.42 Type 2 diabetes mellitus with diabetic polyneuropathy; G25.0 Essential tremor; R79.89 Other specified abnormal findings of blood chemistry; M67.01 Short Achilles tendon (acquired), right ankle; M67.02 Short Achilles tendon (acquired), left ankle | CPT/HCPCS: 11042 ==

== ENCOUNTER 2025-04-08 01:27 | Outpatient (CLI) | payer MEDICARE, OTHER, SELFPAY ==
--- NOTE | 2025-04-08 07:45 | DI.RAD_ITS ---
Exam(s) XR FOOT LT COMPLETE EXAM: XR FOOT LT COMPLETE CLINICAL HISTORY: left foot ulcer,l97.529. TECHNIQUE: 2D digital imaging was performed. Four views including sesamoid view. COMPARISON: CR XR FOOT LT COMPLETE from 09/28/2024 FINDINGS: BONES: No acute fracture is present. No bony destructive lesion is seen. Tiny plantar calcaneal spur. No evident abnormality seen involving the sesamoids. No significant degenerative changes. JOINTS: No dislocation present. Mild degenerative changes at the 1st MTP joint. Hammertoe deformities. SOFT TISSUE: Normal. IMPRESSION: Mild degenerative changes of the 1st MTP joint. No abnormality identified involving sesamoids. DATA REPOSITORY: RADIATION DOSE DELIVERED:
== END 2025-04-08 01:47 ==
LOC: DI 01:28
PROVIDERS: PCP Family Medicine; Visit Provider Podiatrist
DX: L97.522 Non-pressure chronic ulcer of other part of left foot with fat layer exposed (principal); E11.65 Type 2 diabetes mellitus with hyperglycemia; G25.0 Essential tremor; R79.89 Other specified abnormal findings of blood chemistry; M67.01 Short Achilles tendon (acquired), right ankle; M67.02 Short Achilles tendon (acquired), left ankle; E11.42 Type 2 diabetes mellitus with diabetic polyneuropathy
CPT/HCPCS: 11042; 73630

== ENCOUNTER → 2025-04-28 09:38 | Outpatient (BNVA) | payer MEDICARE, OTHER, SELFPAY | PROVIDERS: PCP Family Medicine; Referring Provider Family Medicine; Visit Provider Podiatrist | DX: L97.522 Non-pressure chronic ulcer of other part of left foot with fat layer exposed (principal); E11.40 Type 2 diabetes mellitus with diabetic neuropathy, unspecified; E11.65 Type 2 diabetes mellitus with hyperglycemia; G25.0 Essential tremor; R79.89 Other specified abnormal findings of blood chemistry; M67.01 Short Achilles tendon (acquired), right ankle; M67.02 Short Achilles tendon (acquired), left ankle | CPT/HCPCS: 11042 ==

== ENCOUNTER 2025-05-05 03:39 | Outpatient (CLI) | payer MEDICARE, OTHER, SELFPAY ==
--- NOTE | 2025-05-05 11:55 | TELEFU_ITS ---
Date of service: 05/05/25 Time of Service: 11:00 Nutrition Note NOTE: Fuad in for nutrition visit today centered around better glucose control. Fuad managing DMII for at least 5 years For diabetes he takes glimepiride 4mg per day, 25 units lantus (just went up from 20) qAM, 10mg empagliflozin daily, piolitazone 30mg daily and weekly tirzepitide. His last A1C was 9.2 on 01/18/25 and he states it has gone down into the 8's now as he has worked on taking better care of himself - states the 9.2 came after a period of diabetes fatigue - not taking meds and feeling less motivated. States he has been trying to make some changes - reads labels, takes meds more consistently. He lives alone and shares he is not a good cook. Also tends to snack in the evenings. He shares etoh can be a concern - doing better with avoiding it but has a hx of going heavy on the bedweisers. Shares he is not drinking daily and continues to avoid or choose NA versions part of the time. He has a foot wound and showed pkg of Harry drink mix for wounds - says candy maker helper wants him to take 2 pkts per day. I supported this for the benefit of wound healing along with trying for better glucose control and getting optimal protein intake (pointed him to ~130grams per day) He brought in some snacks he likes - crackers mostly. we reviewed some nutrition label reading tips for this. We did review trying to stay under 14 servings of carbs per day and how to estimate. Also reviewed importance of the quality of these choices (less refined/high fiber). We discussed his typical diet being low in fiber and high in refined starches and that he should focus on eating real food, meeting protein needs with lower fat protein chocies, and aim for 30 or more grams of fiber per day along with keeping an eye on total carb intake. Encouraged to avoid etoh, juice, and SSB's and stay hydrated with water, c onsider herbal teas like hibiscus for CV health. Gave him my card to contact with any desire for followup or need for more resources. Time Spent in Nutritional Counseling and Treatment: 45 min
== END 2025-05-05 03:40 | disposition home or self-care (01) ==
LOC: DS 03:39
PROVIDERS: PCP Family Medicine; Visit Provider Dietitian, Registered
DX: E11.65 Type 2 diabetes mellitus with hyperglycemia (principal)
CPT/HCPCS: 00123; 97802

== ENCOUNTER 2025-05-12 09:37 | Outpatient (REF) | payer MEDICARE, OTHER, SELFPAY | END 2025-05-12 09:38 | disposition home or self-care (01) | LOC: LBN 09:37 | PROVIDERS: PCP Family Medicine; Referring Provider Family Medicine; Visit Provider Podiatrist | DX: L97.529 Non-pressure chronic ulcer of other part of left foot with unspecified severity (principal) | CPT/HCPCS: 11042; 87077; 87070; 87075; 87186; 87205 ==

== ENCOUNTER 2025-05-12 10:45 | Outpatient (CLI) | payer MEDICARE, OTHER, SELFPAY ==
[2025-05-12 11:14] LABS: Hemoglobin A1C 8.6 % (<5.7)
== END 2025-05-12 10:46 | disposition home or self-care (01) ==
LOC: LBO 10:46
PROVIDERS: PCP Family Medicine; Visit Provider Podiatrist
DX: E11.9 Type 2 diabetes mellitus without complications (principal); L97.522 Non-pressure chronic ulcer of other part of left foot with fat layer exposed
CPT/HCPCS: 36415; 83036

== ENCOUNTER 2025-05-25 08:19 | Outpatient (CLI) | payer MEDICARE, OTHER, SELFPAY ==
--- NOTE | 2025-05-25 06:00 | DI.RAD_ITS ---
Exam(s) XR FOOT LT COMPLETE EXAM: XR FOOT LT COMPLETE CLINICAL HISTORY: ? osteo sub 3/4 met heads,chronic ulcer lt foot,l97.059. TECHNIQUE: 2D digital imaging was performed. Four views including additional sesamoid view. COMPARISON: CR XR FOOT LT COMPLETE from 04/08/2025 FINDINGS: BONES: No acute fracture is present. No bony destructive lesion is seen. JOINTS: No dislocation present. Mild degenerative changes of the 1st MTP joint. Hammertoe deformities. Small heel spurs. SOFT TISSUE: Normal. IMPRESSION: No radiographic evidence of osteomyelitis. DATA REPOSITORY: RADIATION DOSE DELIVERED:
== END 2025-05-25 08:39 ==
PROVIDERS: PCP Family Medicine; Visit Provider Podiatrist
DX: L97.529 Non-pressure chronic ulcer of other part of left foot with unspecified severity (principal)
CPT/HCPCS: 11042; 73630

== ENCOUNTER → 2025-06-14 10:00 | Outpatient (BNVA) | payer MEDICARE, OTHER, SELFPAY | PROVIDERS: PCP Family Medicine; Referring Provider Family Medicine; Visit Provider Podiatrist | DX: L97.522 Non-pressure chronic ulcer of other part of left foot with fat layer exposed (principal); L03.116 Cellulitis of left lower limb; E11.65 Type 2 diabetes mellitus with hyperglycemia; E11.621 Type 2 diabetes mellitus with foot ulcer; E11.40 Type 2 diabetes mellitus with diabetic neuropathy, unspecified; G25.0 Essential tremor; R79.89 Other specified abnormal findings of blood chemistry; M67.01 Short Achilles tendon (acquired), right ankle; M67.02 Short Achilles tendon (acquired), left ankle | CPT/HCPCS: 11042 ==

== ENCOUNTER → 2025-06-24 12:13 | Outpatient (BNVA) | payer MEDICARE, OTHER, SELFPAY | PROVIDERS: PCP Family Medicine; Referring Provider Family Medicine; Visit Provider Psychiatry & Neurology Neurology | DX: G25.0 Essential tremor (principal); R27.0 Ataxia, unspecified; E11.40 Type 2 diabetes mellitus with diabetic neuropathy, unspecified; R79.89 Other specified abnormal findings of blood chemistry; E11.59 Type 2 diabetes mellitus with other circulatory complications; I10 Essential (primary) hypertension | CPT/HCPCS: 99214 ==

== ENCOUNTER → 2025-07-01 09:55 | Outpatient (BNVA) | payer MEDICARE, OTHER, SELFPAY | PROVIDERS: PCP Family Medicine; Referring Provider Family Medicine; Visit Provider Podiatrist | DX: L97.522 Non-pressure chronic ulcer of other part of left foot with fat layer exposed (principal); L03.116 Cellulitis of left lower limb; E11.65 Type 2 diabetes mellitus with hyperglycemia; E11.42 Type 2 diabetes mellitus with diabetic polyneuropathy; G25.0 Essential tremor; M67.01 Short Achilles tendon (acquired), right ankle; M67.02 Short Achilles tendon (acquired), left ankle; R79.89 Other specified abnormal findings of blood chemistry | CPT/HCPCS: 11042 ==

== ENCOUNTER 2025-07-15 12:54 | Outpatient (CLI) | payer MEDICARE, OTHER, SELFPAY ==
[2025-07-15 11:59] LABS: Hemoglobin A1C 7.8 % (<5.7)
[2025-07-15 13:05] LABS: Microalb ug/mg Crea 26.9 ug/mg Cr
[2025-07-15 13:27] LABS: Anion Gap 7.1 mmol/L (3-11); BUN 20 mg/dL (7-18); CO2 29.9 mmol/L (21.0-32.0); Calcium 9.0 mg/dL (8.5-10.1); Chloride 99 mmol/L (98-107); Cholesterol 138 mg/dL (<200); Glucose 219 mg/dL (74-106); HDL Cholesterol 62 mg/dL (>or=40); Potassium 4.4 mmol/L (3.5-5.1); Sodium 136 mmol/L (136-145); Vitamin D 25 Total 58 ng/mL (30-100)
== END 2025-07-15 12:55 | disposition home or self-care (01) ==
LOC: LBO 12:54
PROVIDERS: PCP Family Medicine; Visit Provider Student in an Organized Health Care Education/Training Program
DX: E78.5 Hyperlipidemia, unspecified (principal); E11.621 Type 2 diabetes mellitus with foot ulcer; E55.9 Vitamin D deficiency, unspecified; L97.509 Non-pressure chronic ulcer of other part of unspecified foot with unspecified severity
CPT/HCPCS: 36415; 80048; 80061; 82306; 86341; 82043; 82570; 83036; 84681

== ENCOUNTER → 2025-07-22 10:15 | Outpatient (BNVA) | payer MEDICARE, OTHER, SELFPAY | PROVIDERS: PCP Family Medicine; Referring Provider Family Medicine; Visit Provider Podiatrist | DX: L97.522 Non-pressure chronic ulcer of other part of left foot with fat layer exposed (principal); L03.116 Cellulitis of left lower limb; E11.65 Type 2 diabetes mellitus with hyperglycemia; G25.0 Essential tremor; R79.89 Other specified abnormal findings of blood chemistry; E11.42 Type 2 diabetes mellitus with diabetic polyneuropathy; M67.01 Short Achilles tendon (acquired), right ankle; M67.02 Short Achilles tendon (acquired), left ankle | CPT/HCPCS: 97597 ==

== ENCOUNTER → 2025-08-19 11:04 | Outpatient (BNVA) | payer MEDICARE, OTHER, SELFPAY | PROVIDERS: PCP Family Medicine; Referring Provider Family Medicine; Visit Provider Podiatrist | DX: L97.522 Non-pressure chronic ulcer of other part of left foot with fat layer exposed (principal); L03.116 Cellulitis of left lower limb; E11.65 Type 2 diabetes mellitus with hyperglycemia; E11.42 Type 2 diabetes mellitus with diabetic polyneuropathy | CPT/HCPCS: 99213 ==